=== PATIENT | male | born 1965 | race Caucasian/White ===

== ENCOUNTER → 2018-10-21 06:12 | Outpatient (CLI) | payer OTHER, SELFPAY ==
[2018-09-09 08:35] VITALS: BMI 39.6
--- NOTE | 2018-10-21 12:33 | STRESSREP_ITS ---
Stress Test Report Exercise myocardial perfusion stress test. 53-year-old man with a history of coronary artery disease. Stress protocol: Resting EKG demonstrates normal sinus rhythm with a rate of 76 bpm T wave inversion is noted in leads II, III and aVF V4 V5 V6. The patient exercised according to regular Johan protocol for total duration of 6 minutes and 30 seconds. The maximum heart rate attained was 144 bpm which was 86% of maximum predicted heart rate and maximum workload was 7.7 metabolic equivalents. At rest T wave inversions were noted as described above. At peak exercise there was approximately [address] depression noted in lead V3, V4 and V5 on the stress images. Above is suggestive but not diagnostic of ischemia. No c linical angina was noted. The resting blood pressure was 142/96 mmHg and the peak blood pressure was 202/88 mmHg with a rate pressure product of 27,000. Myocardial perfusion protocol. 14.8 mCi of technetium 99m sestamibi was injected at rest. The patient exercised for 6-1/2 minutes and at peak exercise 44.7 mCi of technetium 99m sestamibi was injected at peak exercise. Stress and rest images were reconstructed and compared in the short axis vertical and horizontal long axis. Gated images were also obtained Perfusion SPECT SPECT analysis: Review of the images demonstrate normal uptake of tracer noted in all areas of the myocardium. The resting images similar demonstrate normal uptake of tracer noted in all areas of myocardium. There is a hint of mild reduction noted in the mid anterior wall. However this is not definitive. Gated SPECT analysis: The gated ejection fraction is noted to be 62%. Conclusion: Exercise myocardial perfusion stress test with EKG changes suggestive of ischemia at a moderate workload. No obvious nuclear imaging of ischemia noted. Moderate functional aerobic impairment. Preserved ejection fraction.
--- NOTE | 2018-10-21 12:45 | STRESSREP ---
Stress Test Report Addendum to the stress report. Patient was noted to have premature ventricular complexes and multiple episodes of ventricular couplet activity during exercise and during rest. No sustained runs of ventricular tachyarrhythmia were noted.
== END ==
PROVIDERS: Family Provider Family Medicine; PCP Family Medicine; Referring Provider Internal Medicine Cardiovascular Disease; Visit Provider Internal Medicine Cardiovascular Disease
DX: E78.5 Hyperlipidemia, unspecified (principal); I25.10 Atherosclerotic heart disease of native coronary artery without angina pectoris; R07.9 Chest pain, unspecified; Z95.1 Presence of aortocoronary bypass graft
CPT/HCPCS: 78452; 93017; A9500; A4216

== ENCOUNTER 2018-10-26 07:10 | Day surgery (SDC) | payer OTHER, SELFPAY ==
[2018-09-09 08:35] VITALS: BMI 39.6
--- NOTE | 2018-10-23 06:49 | RAD_ITS ---
STUDY: X-RAY CHEST REASON FOR EXAM: Male, 53 years old. Shortness of breath/dyspnea. TECHNIQUE: PA and lateral views of the chest. COMPARISON: None. FINDINGS: Hyperinflation. Scattered calcified granulomas. There is no demonstrated pleural abnormality. Sternal cerclage wires and vascular clips are present from a prior sternotomy and coronary artery bypass graft procedure (CABG). Normal mediastinum and rosy. Normal visualized pulmonary arteries. Normal visualized aortic arch and descending thoracic aorta. There are diffuse degenerative changes of the visualized thoracic spine. Normal visualized ribs, clavicles, and shoulders. There is no demonstrated abnormality of the visualized soft tissue structures of the upper abdomen. RAD/Chest PA and Lateral IMPRESSION: Hyperinflation. The lungs are clear. Electronically Signed: Brandon Cabrera, at 12:24 EDT , Service support ,
[2018-10-23 07:07] LABS: Absolute Lymphocyte Count 1.65 X10^3/ul (0.83-4.51); Absolute Neutrophil Count 3.2 X10^3/uL (2.0-7.7); Basophil# 0.06 X10^3/uL; Eosinophils% 3.3 % (0-5); Hematocrit 45.7 % (40-54); Hemoglobin 15.2 g/dl (13.0-16.5); Lymphocyte # 1.65 X10^3/ul (4.0); Lymphocyte % 26.9 % (19-41); Mean Corp Hgb Conc 33.3 g/gl (32-36); Mean Corpuscular Volume 93.1 fL (80-94); Mean Platelet Vol. 11.2 fl (6.2-12.0); Monocyte# 1.03 X10^3/uL; Monocyte% 16.8 % (0-10); Neutrophil # 3.19 X10^3/uL (2.7-7.7); Neutrophil % 51.8 % (47-70); Platelet Count 166 K/mm3 (150-450); RBC Distribution Width CV 13.1 % (11.6-14.6); RBC Distribution Width SD 44.4 fl (35.1-43.9); Red Blood Count 4.91 M/mm3 (4.6-6.2); White Blood Count 6.1 K/mm3 (4.4-11.0)
[2018-10-23 07:15] LABS: POSITIVE COUNT NO; POSITIVE DIFFERENTIAL NO; POSITIVE MORPHOLOGY NO
[2018-10-23 07:47] LABS: Anion Gap 5 (5-15); BUN 15 mg/dL (7-18); BUN/Creat Ratio 14.9 RATIO (10-20); Chloride 106 mmol/L (98-107); Creatinine, Serum 1.01 mg/dL (0.70-1.30); EST Glomerular Filtration Rate 82 mL/min (>60); Est Glom Filt Rate - Afr Amer 99 mL/min (>60); Glucose 141 mg/dL (74-106); Potassium 3.9 mmol/L (3.5-5.1); Sodium Level 139 mmol/L (136-145)
[2018-10-23 07:49] LABS: AST(SGOT) 33 U/L (15-37); Alanine Aminotransfer ALT/SGPT 30 U/L (16-61); Albumin, Serum 3.9 g/dL (3.2-5.0); Alkaline Phosphatase 75 U/L (45-117); Bilirubin, Direct 0.15 mg/dL (0.00-0.30); Cholesterol 139 mg/dL (200); Globulin 3.4 g/dL (2.2-4.2); High Density Lipoprotein 41 mg/dL; Protein, Total 7.3 g/dL (6.4-8.2); Triglycerides 105 mg/dL; Very Low Density Lipoprotein 21 mg/dL (5-40)
[2018-10-26] VITALS (31 sets, daily range): BP systolic 117–178; BP diastolic 50–101; PULSE 54–72; RESP 15–26; TEMP 36.6–36.9; O2SAT 91–98; BMI 38.4; BMI 38.9
--- NOTE | 2018-10-26 07:26 | PCM.HP.BLA ---
History and Physical Date of Admission: 10/26/18 History of Present Illness Details: BHARAT HOLLY, is a 52 M who presents to the hospital today for a cardiovascular outpatient cardiac catheterization. He has a history of premature coronary artery disease status post carotid bypass surgery in 2008 with a left internal mammary artery to the diagonal branch, saphenous vein graft to the posterior descending artery, and saphenous vein graft to posterior circumflex artery. He also has a history of hyperlipidemia. He denies chest, arm, jaw, or neck discomfort. He states prior to CABG he noted dizziness. His exercise tolerance is stable. He denies symptoms of palpitations, lightheadedness, dizziness, near syncope, or syncopal episodes. He denies edema or claudication issues. He denies orthopnea, PND, or myalgia. He states SOB on exertion, that is most noted when over doing it. This includes such activity as breaking concrete with a sledge hammer. He states his energy has been less over the last year. He underwent a stress test which was noted to be abnormal and hence presenting for this cardiac catheterization. Visit Reasons: 1 Y FU (moved from [facility]) Hospital Manager Required: No Is patient in pain?: No Allergies No Known Allergies Allergy (Unverified 09/09/18 08:32) Medications aspirin 81 mg tablet,delayed release 81 mg PO QDAY 08/29/17 [History Confirmed 09/09/18] metoprolol tartrate 50 mg tablet 50 mg PO BID #180 tab 08/17/18 [Rx Confirmed 09/09/18] simvastatin 40 mg tablet 40 mg PO QPM #90 tab 08/24/18 [Rx Confirmed 09/09/18] [facility] Medical History HLD (hyperlipidemia) (Chronic) Atherosclerotic heart disease of [place] coronary artery without angina pectoris (Chronic) HTN (hypertension) (Ruled-out) ACS (acute coronary syndrome) (Inactive) Surgical History Presence of aortocoronary bypass graft (Chronic 12/02/08) History of arthroscopy of left shoulder (Acute ~03/2017) History of left heart catheterization (LHC) (Chronic 12/01/08) History of tonsillectomy (Chronic) Family History Father CAD (coronary artery disease) Diabetes Cancer Mother Diabetes Brother brain aneurysm rupture Social History Smoking Status: Never smoker alcohol intake: current alcohol intake frequency: a few times a month ROS Const Const: Positive for fatigue; negative for weakness, body ache, fever(s) or chills ENT ENT: Negative for dizziness Cardio Chest Pain: No Palpitations: No Edema: None Muscle aches with walking: None Resp Respiratory: Positive for SOB with activity; negative for SOB at rest, SOB orthopnea\SOB lying down or paroxysmal nocturnal dyspnea GI GI: Negative nausea, vomiting blood/hematemesis, bright, red blood in stools or black,tarry stools : Negative for hematuria or frequent nighttime urination/ nocturia Musc Musc: Negative for muscle aches/ myalgia Skin Skin: Negative non-healing lesions or rash Neuro Neuro: Negative for dizziness, lightheadedness, near syncope, syncope, orthostatic symptoms or weakness Endo Endo: Positive for fatigue Allergy Allergy/Immunology: Negative for rash Cardiology Exam Const Appearance: cooperative, healthy appearing, comfortable and no acute distress Nutritional Appearance: well nourished and obese Orientation: alert, awake and oriented x3 Head Head: normal to inspection Ears: hearing grossly normal bilaterally Nose: external nose normal Face and Sinus: face symmetric Mouth: oral mucosae normal Eyes General: appearance normal, both eyes and all related structures Eyelids: eyelids normal EOM: EOM intact bilaterally Neck Neck: normal visual inspection and no JVD Carotids: normal carotid upstroke Chest Chest inspection: normal inspection of the chest, symmetric chest movement and normal respiratory effort; negative cough Auscultation: Bilateral: Clear to Auscultation Cardio Rate: regular rate Rhythm: regular rhythm Heart sounds: S1 normal and S2 normal; negative rub, gallop or murmur GI GI: normal to inspection and obese Neuro General: alert, awake, oriented x3 and CN's II-XI intact bilaterally Skin Skin: no rashes or lesions noted Extremities Pulses: Normal: Right Posterior Tibial Pulse, Left Posterior Tibial Pulse, Right Radial Pulse, Left Radial Pulse Lower Extremity Edema: None: Bilateral Psych Psychological: normal affect Assessment & Plan 1. Atherosclerosis of [place] coronary artery of [place] heart without angina pectoris I25.10 CABG x 3 SHEIKH-D2, Sequential SVG- Left PDA Posterolateral CX 12/02/2008 He underwent stress testing which demonstrated evidence of ischemia and hence he is being scheduled for this cardiac catheterization. The risk benefits and alternatives have been explained to him he understands and agrees to proceed. 2. Presence of aortocoronary bypass graft Z95.1 CABG x 3 SHEIKH-D2, Sequential SVG- Left PDA Posterolateral CX 12/02/2008 @ [facility] Plan He will proceed with current medications and we will continue to monitor. 3. Pure hypercholesterolemia E78.00 Plan Lipid panel from August 2016 showed cholesterol: 148, HDL: 43, LDL: 80, and triglycerides: 127. He will continue with current statin medication. Patient will have this drawn at his earliest convenience in a fasting state. Based on results, further recommendation will be made. Orders Orders: Lipid Profile 09/09/18 Liver Profile 09/09/18 Plan Detail Other Orders Orders: Lipid Profile 09/09/18 E78.0 Liver Profile 09/09/18 E78.0 Additional Comments Thank you for allowing us to participate in the patient's plan of care, if you have any questions please do not hesitate to call. This note was generated using a voice recognition system and there may be incorrect words, spelling, or punctuation that were not noted upon reviewing the office note prior to saving. Follow Up 12 Months ([facility])
[2018-10-26 09:55] LABS: ACT Activated Clotting Time 219 sec (74-137)
--- NOTE | 2018-10-26 10:00 | EKG12_ITS ---
Test Reason : POST PCI Blood Pressure : / mmHG Vent. Rate : 055 BPM Atrial Rate : 055 BPM P-R Int : 180 ms QRS Dur : 100 ms QT Int : 442 ms P-R-T Axes : 086 080 -75 degrees QTc Int : 422 ms Sinus bradycardia T wave abnormality, consider inferior ischemia Abnormal ECG Confirmed by ARUN ROJAS, SUSAN ([id number]), managing editor NEVILLE GONCALVES ([id number]) on 10/30/2018 1:51:16 PM Referred By: Mina Enriquez Confirmed By:DERRELL DIAS MD
--- NOTE | 2018-10-26 10:00 | EKG12_ITS ---
Test Reason : AM Blood Pressure : / mmHG Vent. Rate : 058 BPM Atrial Rate : 058 BPM P-R Int : 146 ms QRS Dur : 104 ms QT Int : 492 ms P-R-T Axes : 085 080 178 degrees QTc Int : 482 ms Sinus bradycardia with occasional Premature ventricular complexes T wave abnormality, consider inferior ischemia Prolonged QT Abnormal ECG When compared with ECG of 26-OCT-2018 10:13, MANUAL COMPARISON REQUIRED, DATA IS UNCONFIRMED Confirmed by ARUN ROJAS, SUSAN ([id number]), sound editor NEVILLE GONCALVES ([id number]) on 10/30/2018 1:49:49 PM Referred By: Mina Enriquez Confirmed By:DERRELL DIAS MD
--- NOTE | 2018-10-26 11:33 | CRPHASE1 ---
Patient Communication PHII Cardiac Rehab Discussed with Patient:: Yes Guide to Cardiac Rehab Given to Patient:: Yes Cardiac Rehab Facility Choice List Given to Patient:: Yes - [facility] Choice Program [facility] CR PHII:: Communication Given to CR, Refer to [facility] Clinical Neuropsychologist:: Arutro Bloom PCP:: Chi Antoine Phase II Cardiac Rehab:: Yes Phase I Charge:: Level I - Education Risk Factors/Lifestyle Smoking Status: Never smoker Hx Hypertension: Yes Hx Obesity: Yes Height: 5 ft 9 in Weight:: 264 lb BMI: 38.9 Family History: Family History (Last Reviewed 09/09/18 @ 08:32 by Quynh Church) Father CAD (coronary artery disease) Diabetes Cancer Mother Diabetes Brother brain aneurysm rupture Family History: Cancer, Diabetes, Heart Disease, Stroke Past Cardiac Illness: Coronary Artery Bypass Graft Laboratory Values: Cardiac Rehab Phase I Labs Triglycerides 105 mg/dL (-199) 10/23/18 06:47 Cholesterol 139 mg/dL (200) 10/23/18 06:47 77 mg/dL (0-130) 10/23/18 06:47 41 mg/dL (40-) 10/23/18 06:47 Phase I Education Given On:: [place], Nutrition, Antiplatelet medication, CHF Issues Affecting Care:: None Knowledge of Condition:: Yes Learning Preferences: Verbal, Written, Audio/Visual, Demonstration Hospital Course Presenting Symptoms:: chest pain, SOB Medical/Surgical History CAD:: Yes Hypertension:: Yes Dyslipidemia:: Yes CABG: Yes Discharge/Home/Social Eval Marital Status: Cardiac Rehabilitation Info Cardiac Rehabilitation Program Information: Cardiac Rehabilitation is important for patients like you who are recovering from a heart problem. Cardiac rehabilitation programs are recognized as integral to the continued care of the patient with coronary heart disease. The cardiac rehabilitation program is designed to optimize a patient's physical, psychological, and social functioning. Health care transition manager work in cardiac rehabilitation programs and assist you with getting the treatments you need to get stronger and healthier - like exercise, healthy eating habits, and medications. Cardiac rehabilitation has been show to help people with heart problems live longer and have better life enjoyment than people who do not go to cardiac rehabilitation. Please contact the Cardiac Rehabilitation Program at [facility] at in two weeks if you have not heard from them.
--- NOTE | 2018-10-26 11:39 | CRPH1.INSTRU ---
General Education CAD and cardiac anatomy and function:: Patient communicates acknowledgment, Needs reinforcement Explanation of diagnoses and procedures:: Patient communicates acknowledgment, Needs reinforcement Sign/Symptoms of MA:: Patient communicates acknowledgment, Needs reinforcement Antiplatelet therapy: Patient communicates acknowledgment, Needs reinforcement Proper use of NTG-SL: Patient communicates acknowledgment, Needs reinforcement Emergency procedures and activation of EMS: Patient communicates acknowledgment, Needs reinforcement Compliance of all prescribed medications: Patient communicates acknowledgment, Needs reinforcement Smoking Patient Nicotine/Smoking Risk Factors Are:: Non-smoker Nicotine/Smoking Response Code:: Not instructed Dyslipidemia Patient Dyslipidemia Risk Factors Are:: Total Cholesterol, Triglycerides, HDL, LDL Recommendations Include:: Lipid profile provided, Reviewed NCEP/ATP guidelines, Therapeutic Lifestyle Change dietary guidelines Dyslipidemia Response Code:: Patient communicates acknowledgment, Needs reinforcement Overweight/Obesity Patient Overweight/Obesity Risk Factors Are:: Overweight = 26-29 Recommendations Include:: Weight loss of 5-10%, Reduced calorie diet, Exercise 5-7 times/week Overweight/Obesity:: Patient communicates acknowledgment, Needs reinforcement Hypertension Recommendations Include:: Maintain BP <130/85, DASH dietary guidelines, Decrease/maintain normal body weight, Moderation of ETOH Hypertension:: Patient communicates acknowledgment, Needs reinforcement Heart Disease Patient Heart Disease Risk Factors Are:: Family history of heart disease < 65 years old, Previous cardiac event Recommendations Include:: Educated family members of their risk, Educated family members of importance of prevention of heart disease Heart Disease Response Code:: Patient communicates acknowledgment, Family communicates acknowledgment, Needs reinforcement Diabetes Patient Diabetes Risk Factors Are:: No documented hx of diabetes Recommendations Include:: Decrease/maintain body weight Diabetes:: Needs reinforcement Metabolic Syndrome Patient Metabolic Syndrome Risk Factors Are [3 of 5]:: Waist circumference > 35 [female] or 40 [male], Hypertension Recommendations Include:: Reinforce compliance to risk factor modifications, Encouraged follow-up with Primary Care Physician Metabolic Syndrome Response Code:: Patient communicates acknowledgment, Needs reinforcement Sedentary Patient Sedentary Risk Factors Are:: Lack of regular exercise Recommendations Include:: Aerobic exercise 5-7 times/week for 20-30 minutes continuously, Benefits of regular exercise, Discussed home walking program, Monitored Outpatient Cardiac Rehab Sedentary Response Code:: Patient communicates acknowledgment, Needs reinforcement Stress Patient Stress Risk Factors Are:: Patient denies stress as a risk factor Stress Response Code:: Patient communicates acknowledgment, Needs reinforcement
[2018-10-26 11:56] LABS: ACT Activated Clotting Time 169 sec (74-137)
[2018-10-26] MEDS: Morphine 2 MG/ML Syringe IV (12:12)
--- NOTE | 2018-10-26 16:08 | CL.I_ITS ---
Patient Name: BHARAT HOLLY Study Date: 10/26/2018 Performing: Bee Bloom MD Ht: 69 inches 175 cm : 1965 Wt: 264.9 lbs 120 kg Age: 53 Gender: male BSA: 2.32 PROCEDURE(S) PERFORMED GL02-FPM W OR WO PTCA, SINGLE CORONARY ARTERY [id number] AND/OR PTCA, SINGLE GRAFT CLINICAL PROFILE AND CO-MORBIDITIES Indications: Suspected CAD Heart Failure: None Stress/Imaging Date: 10/21/2018 CAD Presentations: Unstable angina. CONCLUSIONS Successful PCI with Drug eluting stent and PTCA to the OM2 and SVG to OM2 RECOMMENDATIONS ASA Indefinitley Plavix for at least 12 months Follow up with primary machine trimmer DESCRIPTION OF PROCEDURE The patient arrived to the procedure lab. The risks and benefits of the procedure as well as a full d escription of our services here and current unavailability of surgical backup were fully explained to the patient and/or their significant other prior to the catheterization. The Timeout was completed, verifying the correct patient and procedure. The patient's procedural site was prepped and draped in the usual fashion. Local anesthetic was given subcutaneously to right groin region with Lidocaine 2% Using a modified Seldinger technique,arterial access was obtained via the right femoral artery, a 5Fr sheath was inserted. Left Coronary Artery selective angiography was performed in multiple views usin g a 5 Fr. JL4 catheter. Right Coronary Artery selective angiography was then performed in multiple vi ews using a 5 Fr. 3DRC (Alfredo) catheter. Saphenous Vein graft to the Circumflex- sequential graft to PDA selective angiography was performed in multiple views using a 5 Fr. 3DRC (Alfredo) catheter. Left internal mammary artery graft to the LAD selective angiography was performed in multip le views using a 5 Fr. 3DRC (Alfredo) catheter. Left Ventriculography was performed in QUINN projectio n using a 5 Fr. Pigtail catheter. LV to AO pullback pressures were then recorded.The images were revi ewed and options discussed. A decision was then made to proceed with an Intervention, IVUS or other a djunct procedure. Arterial sheath was exchanged for a 6 Fr Sheath. JR 4 Guide catheter was inserted and engaged int o the SVG to the OM 2. BMW Guide wire was advanced to the 2nd OM. Emerge 2.00x12 Balloon catheter was inserted. PTCA balloon inflated at 10 atms for 13 secs. Angiogram performed post balloon dilatation. Synergy 2.50x16 Drug Eluting stent was inserted. Angiogram performed post stent deployment. Synergy 4.00x12 Drug Eluting stent was inserted. Angiogram performed post stent deployment. The arterial sh eath was sutured in place and capped INTERVENTION INFORMATION LESION SITE: 2nd OM (Distal) Vein > to 2nd OM Segment Number: 21-Second obtuse marginal branch segmen t - 2nd OM , Lesion Location: Not in Graft > [place] vessel (distal) Lesion Complexity: High/C, chronic total occlusion: No, lesion at bifurcation: No, thrombus present: No, lesion length: 12 mm, culprit lesion: No, Previously treated lesion: No Pre Stenosis: 80 % Pre intervention HOLA flow: 3 PROCEDURE: Drug Eluting Stent with pre dilatation. Post Stenosis: 0 % Post intervention HOLA flow: 3 Lesion Devices: [place] .014 BMW Tyler Straight 190cm Medtronic 6 Fr JR4.0 100cm Guide Catheter EZDOCTOR Synergy MR KAREN 2.50x16 LESION SITE: Vein > to 2nd OM Segment Number: 21-Second obtuse marginal branch segment - 2nd OM , [place] Location: Body Lesion Complexity: High/C, chronic total occlusion: No, lesion at bifurcation: No, thrombus present: No, lesion length: 12 mm, culprit lesion: Yes, Previously treated lesion: No, culprit lesion: Yes, Pr eviously treated lesion: No, In-stent restenosis: No Pre Stenosis: 80 % Pre intervention HOLA flow: 3 PROCEDURE: Drug Eluting Stent Post Stenosis: 0 % Post intervention HOLA flow: 3 Lesion Devices: [place] .014 BMW Tyler Straight 190cm Medtronic 6 Fr JR4.0 100cm Guide Catheter [employer] MR KAREN 4.00x12 COMPLICATIONS No Complications PROCEDURE MEDICATIONS Versed 1 mg IV Versed 0.5 mg IV Versed 0.5 mg IV Versed 1 mg IV Oxygen: 3 L/min via nasal cannula Heparin 9000 unit(s) IV 10/26/2018 09:23:27 SUMMARY OF HEMODYNAMIC DATA Time AIR REST ECG 07:31:01 AO 137/84 (107) SA 08:40:28 LV 126/18, 33 08:56:24 LV 133/15, 33 08:56:31 LV 144/5, 24 08:57:24 LVp 150/3, 23 08:57:37 AOp 160/86 (114) 08:57:42 Signed By Bee Bloom MD On 10/26/2018 16:07:39 Bee Bloom MD
[2018-10-26] MEDS: Metoprolol Tartrate 50 MG Tablet PO (21:44)
[2018-10-26] MEDS: Atorvastatin Calcium 20 MG Tablet PO (21:44)
[2018-10-27] VITALS (13 sets, daily range): BP systolic 106–142; BP diastolic 44–85; PULSE 52–73; RESP 14–22; TEMP 36.4–36.9; O2SAT 95–100
[2018-10-27] MEDS: 0.9% NaCl Peripheral Flush Adult/Peds IV (04:07)
[2018-10-27 04:15] LABS: Hematocrit 41.3 % (40-54); Hemoglobin 14.1 g/dl (13.0-16.5); Mean Corp Hgb Conc 34.1 g/gl (32-36); Mean Corpuscular Hgb 31.4 pg (27.0-32.0); Mean Platelet Vol. 11.5 fl (6.2-12.0); Platelet Count 137 K/mm3 (150-450); RBC Distribution Width CV 13.1 % (11.6-14.6); RBC Distribution Width SD 44.2 fl (35.1-43.9); Red Blood Count 4.49 M/mm3 (4.6-6.2); Scan Indicated on CBC? Y/N NO; White Blood Count 7.4 K/mm3 (4.4-11.0)
[2018-10-27 04:39] LABS: ALB/GLOB Ratio 1.2 RATIO (0.9-2.4); AST(SGOT) 31 U/L (15-37); Alanine Aminotransfer ALT/SGPT 24 U/L (16-61); Albumin, Serum 3.5 g/dL (3.2-5.0); Alkaline Phosphatase 73 U/L (45-117); Anion Gap 7 (5-15); BUN 12 mg/dL (7-18); BUN/Creat Ratio 14.2 RATIO (10-20); Calcium,Total 8.7 mg/dL (8.5-10.1); Chloride 107 mmol/L (98-107); Creatinine, Serum 0.85 mg/dL (0.70-1.30); EST Glomerular Filtration Rate 101 mL/min (>60); Est Glom Filt Rate - Afr Amer 122 mL/min (>60); Glucose 132 mg/dL (74-106); Potassium 4.2 mmol/L (3.5-5.1); Protein, Total 6.5 g/dL (6.4-8.2); Sodium Level 142 mmol/L (136-145)
--- NOTE | 2018-10-27 07:03 | PN.CARD_ITS ---
Subjectve: Patient seen and evaluated. Had uneventful night. No chest pain or shortness of breath. No bleeding Objective: Vital Signs Temp Pulse Resp BP Pulse Ox 97.6 F L 58 L 16 116/44 L 95 10/27/18 04:00 10/27/18 07:00 10/27/18 07:00 10/27/18 07:00 10/27/18 07:00 Oxygen Flow Rate (L/min) 2 Oxygen Delivery Method Nasal Cannula Weight: 265 lb 3.457 oz Body Mass Index (BMI) 38.4 Intake and Output for Last 24 Hours 10/25/18 10/26/18 10/27/18 23:59 23:59 23:59 Intake Total 1350 / 1350 240 / 240 Output Total 550 / 550 Balance 800 / 800 240 / 240 General: Awake, Alert, Oriented x 3 HEENT: PERRL, EOMI, Sclera Non Icteric Neck: Supple, Good ROM, No Lymph Node Enlargement Lungs: Clear to auscultation Cardiovascular: Regular Rhythm, Normal S1, Normal S2, No Murmurs, No Rubs, No Gallops Vascular: No Carotid Bruits, Normal Femoral Pulses, Normal Radial Pulses, Normal Dorsalis Pedal Pulse, Normal Posterior Tibial Pulses Abdomen: Bowel Sounds Present, Soft, Non Tender, No HSM, No Organomegaly Extremities: No Cyanosis, No Clubbing, No edema Musculoskeletal: No Erythema Skin: No Rashes Lymphatic: No Lymph Node Enlargement Neurological: No Focal Motor or Sensory Deficit Psych/Mental Status: Appropriate 10/27/18 04:00: WBC 7.4, RBC 4.49 L, Hgb 14.1, Hct 41.3, MCV 92.0, MCH 31.4, MCHC 34.1, RDW 13.1, RDW Differential 44.2 H, Plt Count 137 L, MPV 11.5 10/27/18 04:00: Sodium 142, Potassium 4.2, Chloride 107, Carbon Dioxide 28.0, Anion Gap 7, BUN 12, Creatinine 0.85, Est GFR (MDRD) Af Amer 122, Est GFR (MDRD) Non-Af 101, BUN/Creatinine Ratio 14.2, Glucose 132 H, Calcium 8.7, Total Bilirub in 0.70 Rhythm: EKG: Normal sinus rhythm with occasional PVCs nonspecific EKG changes ECHO: Stress Test: Cardiac Cath: PCI: CT Surgery: Holter monitor: EPS: PPM: CXR: Chest CT Scan: Medical Necessity - Tobacco Use Smoking Status: Never smoker Assessment/Plan 1. Coronary artery disease Cardiac catheterization had demonstrated patent left internal mammary artery to the left anterior descending artery, saphenous vein graft to the second obtuse marginal branch as well as the posterior descending artery with high-grade stenosis. He underwent angioplasty and stenting of these vessels without incident. He has a nondominant right coronary artery. His EKG today is u nremarkable and creatinine and hemoglobin are normal. He will be discharged for outpatient follow-up and cardiac rehabilitation.
--- NOTE | 2018-10-27 07:05 | DCINST_ITS ---
Discharge Diet: Low fat/ Low Cholesterol Lifting Restrictions: 10 pounds and also avoid any pushing or pulling for 3 days after your test. Additional Activity Instructions:: You must have someone drive you home. Do not drive until instructed by your doctor. You must have someone stay with you all night after your test. Rest in bed or on the couch until the next morning. Limit the number of times you go up and down stairs the day of your test. Apply pressure to the puncture site if you sneeze or cough. Call your doctor if your incision/area has: Increased Pain/ Swelling, Increased Redness, Foul Smelling Discharge, Swelling at the incision site Call your doctor if you observe: Fever of 101 or Higher Additional Dressing/Incision Instructions:: Keep the dressing (bandage) on until the next morning. You may then shower, but do not take a tub bath for 5 days after your test. It is normal to have some tenderness and discomfort at the puncture site. Sometimes bruising also occurs. However, if pain, numbness, or coldness occurs below the puncture site (in your leg, toes, arms or fingers) call your doctor at once. You may have a small, marble sized knot at the puncture site. This is normal. Do not rub it. It will go away in 4-6 weeks. Bleeding can occur from the area where the puncture was done. Blood may spurt or drip from the site. If blood spurts, apply pressure right away to stop bleeding and call 911. Although rare, bleeding into the tissue (hematoma) can also occur. If this happens, a large, firm area goose egg under the skin will appear. If any of these occur, lie down as flat as you can and have someone apply firm pressure to the cath site with a gauze pad or a clean washcloth for 10-15 minutes. Call 911 or go to the Emergency Department. Allergies/Adverse Reactions: Allergies No Known Allergies Allergy (Unverified 09/09/18 08:32) Medications to take at Discharge aspirin 81 mg tablet,delayed release 81 mg PO QDAY 08/29/17 metoprolol tartrate 50 mg tablet 50 mg PO BID #180 tab 08/17/18 simvastatin 40 mg tablet 40 mg PO QPM #90 tab 08/24/18 clopidogrel 75 mg tablet 75 mg PO DAILY #30 tab 07/12/19 Orders to be completed after discharge: Phase II, Outpatient Cardiac Rehab Location: None Selected Primary Care Physician: Chi Antoine MD [Primary Care Provider] - Test Results: Test results from this visit will be discussed in further detail at your follow- up appointment, if applicable. When: [facility] Proposed Discharge Date: 10/27/18 Cardiac Rehabilitation Info Cardiac Rehabilitation Program Information: Cardiac Rehabilitation is important for patients like you who are recovering from a heart problem. Cardiac rehabilitation programs are recognized as integral to the continued care of the patient with coronary heart disease. The cardiac rehabilitation program is designed to optimize a patient's physical, psychological, and social functioning. Health animal care worker work in cardiac rehabilitation programs and assist you with getting the treatments you need to get stronger and healthier - like exercise, healthy eating habits, and medications. Cardiac rehabilitation has been show to help people with heart problems live longer and have better life enjoyment than people who do not go to cardiac rehabilitation. Please contact the Cardiac Rehabilitation Program at [facility] at in two weeks if you have not heard from them.
[2018-10-27] MEDS: Aspirin E.C. 81 MG Tablet PO (07:52)
[2018-10-27] MEDS: Metoprolol Tartrate 50 MG Tablet PO (07:52)
[2018-10-27] MEDS: Clopidogrel Bisulfate 75 MG Tablet PO (07:52)
--- NOTE | 2018-11-03 13:39 | CL.D_ITS ---
Patient Name: BHARAT HOLLY Study Date: 10/26/2018 Performing: Mina Enriquez MD Ht: 68.9 inches 175 cm : 1965 Wt: 264.55 lbs 120 kg Age: 53 Gender: male BSA: 2.32 PROCEDURE(S) PERFORMED [id number]/LV/CABG [id number] W OR WO PTCA, SINGLE CORONARY ARTERY [id number] AND/OR PTCA, SINGLE GRAFT CLINICAL PROFILE AND INDICATIONS Indications: Suspected CAD Heart Failure: None Stress/Imaging Date: 10/21/2018 CAD Presentations: Unstable angina. CONCLUSIONS Severe grafty vessel disease involving LCX and PDA RECOMMENDATIONS Referred for immediate PCI DESCRIPTION OF PROCEDURE The patient arrived to the procedure lab. The risks and benefits of the procedure as well as a full d escription of our services here and current unavailability of surgical backup were fully explained to the patient and/or their significant other prior to the catheterization. The Timeout was completed, verifying the correct patient and procedure. The patient's procedural site was prepped and draped in the usual fashion. Local anesthetic was given subcutaneously to right groin region with Lidocaine 2%. Using a modified Seldinger technique, arterial access was obtained via the right femoral artery, a 5 Fr sheath was inserted. Left Coronary Artery selective angiography was performed in multiple views u sing a 5 Fr. JL4 catheter. Right Coronary Artery selective angiography was then performed in multiple views using a 5 Fr. 3DRC (Alfredo) catheter. Saphenous Vein graft to the Circumflex- sequential gra ft to PDA selective angiography was performed in multiple views using a 5 Fr. 3DRC (Alfredo) catheter. Left internal mammary artery graft to the LAD selective angiography was performe d in multiple views using a 5 Fr. 3DRC (Alfredo) catheter. Left Ventriculography was performed in RA O projection using a 5 Fr. Pigtail catheter. LV to AO pullback pressures were then recorded.The arter ial sheath was sutured in place and capped CORONARY ANGIOGRAPHY DOMINANCE: Left Dominant LEFT HEART ASSESSMENT Left Ventricular Ejection Fraction: by LV Gram 65 % Normal LV wall motion Normal Left Ventricular systolic function LEFT MAIN: Angiographically normal LEFT ANTERIOR DESCENDING ARTERY: PROX LAD: is occluded CIRCUMFLEX ARTERY: OM 1: Proximal - 90 % Stenosis RIGHT CORONARY ARTERY: No significant disease noted GRAFTS: SHEIKH graft to the Mid LAD is patent Sequential graft to the Lcx and PDA with anastomotic 75 % stenosis and distal anastomotic 80% in PDA COMPLICATIONS No Complications PROCEDURE MEDICATIONS Versed 1 mg IV Versed 0.5 mg IV Versed 0.5 mg IV Versed 1 mg IV Oxygen: 3 L/min via nasal cannula Heparin 9000 unit(s) IV 10/26/2018 09:23:27 SUMMARY OF HEMODYNAMIC DATA Time AIR REST ECG 07:31:01 AO 137/84 (107) 08:40:28 LV 126/18, 33 08:56:24 LV 133/15, 33 08:56:31 LV 144/5, 24 08:57:24 LVp 150/3, 23 08:57:37 AOp 160/86 (114) 08:57:42 Signed By Mina Enriquez MD On 11/03/2018 13:38:08 Mnia Enriquez MD
== END 2018-10-27 10:50 | disposition home or self-care (01) ==
LOC: CLSP 07:10 → ICU 09:54
PROVIDERS: Nurse Practitioner Family; Specialist; Family Provider Family Medicine; PCP Family Medicine; Referring Provider Internal Medicine Cardiovascular Disease; Visit Provider Internal Medicine Cardiovascular Disease
DX: I25.110 Atherosclerotic heart disease of native coronary artery with unstable angina pectoris (principal); Z95.1 Presence of aortocoronary bypass graft; E78.5 Hyperlipidemia, unspecified; I10 Essential (primary) hypertension; Z79.899 Other long term (current) drug therapy; Z79.82 Long term (current) use of aspirin
CPT/HCPCS: 36415; 71046; 80048; 80053; 80061; 80076; 85025; 85027; 85347; 92928; 92937; 93005; 93459; 99152; 99153; J7040; Q9967; A4216; C1725; C1769; C1874; C1887; C9600; C9604

== ENCOUNTER → 2019-03-24 09:28 | Outpatient (CLI) | payer OTHER, SELFPAY ==
[2018-10-26 11:39] VITALS: BMI 38.9
[2019-03-24 08:06] VITALS: BMI 40.7
[2019-03-24 10:42] LABS: AST(SGOT) 32 U/L (15-37); Alanine Aminotransfer ALT/SGPT 29 U/L (16-61); Alkaline Phosphatase 79 U/L (45-117); Bilirubin, Direct 0.24 mg/dL (0.00-0.30); Cholesterol 140 mg/dL (200); Globulin 3.3 g/dL (2.2-4.2); High Density Lipoprotein 40 mg/dL; Protein, Total 7.3 g/dL (6.4-8.2); Triglycerides 83 mg/dL; Very Low Density Lipoprotein 17 mg/dL (5-40)
== END ==
PROVIDERS: Family Provider Family Medicine; PCP Family Medicine; Referring Provider Internal Medicine Cardiovascular Disease; Visit Provider Internal Medicine Cardiovascular Disease
DX: E78.5 Hyperlipidemia, unspecified (principal)
CPT/HCPCS: 36415; 80061; 80076

== ENCOUNTER → 2019-09-24 13:51 | Outpatient (CLI) | payer OTHER, SELFPAY ==
[2018-10-26 11:39] VITALS: BMI 38.9
[2019-09-24 13:04] VITALS: BMI 40.6
--- NOTE | 2019-09-24 14:07 | RAD_ITS ---
STUDY: X-RAY CHEST REASON FOR EXAM: Male, 53 years old. SOB HX OF OPEN HEART IN 2008. TECHNIQUE: Frontal and lateral views COMPARISON: October 23, 2018 FINDINGS: Stable sternotomy wires. The lungs are clear and expanded. There is no demonstrated pleural abnormality. Normal size heart. Normal mediastinum and rosy. Normal visualized pulmonary arteries. Normal visualized aortic arch and descending thoracic aorta. Degenerative changes of the thoracic spine. Stable mild wedge compression of a lower thoracic segment. Degenerative changes at the shoulders. There is no demonstrated abnormality of the visualized soft tissue structures of the upper abdomen. RAD/Chest PA and Lateral IMPRESSION: No acute pulmonary pathology of the chest. Electronically Signed: Kian Tinajero DO at 8:41 EDT Tel [phone], Service support ,
[2019-09-24 14:14] LABS: Absolute Neutrophil Count 3.2 X10^3/uL (2.0-7.7); Basophil# 0.04 X10^3/uL; Basophil% 0.7 % (0-1); Eosinophil# 0.24 X10^3/uL; Hematocrit 44.6 % (40-54); Hemoglobin 14.6 g/dL (13.0-16.5); Lymphocyte % 28.5 % (19-41); Mean Corp Hgb Conc 32.7 g/dL (32-36); Mean Corpuscular Hgb 31.4 pg (27.0-32.0); Mean Corpuscular Volume 95.9 fL (80-94); Mean Platelet Vol. 11.4 fl (6.2-12.0); Monocyte# 0.74 X10^3/uL; Monocyte% 12.4 % (0-10); NRBC Flagged by Analyzer 0 % (0-5); Neutrophil # 3.22 X10^3/uL (2.7-7.7); Neutrophil % 54.1 % (47-70); Platelet Count 123 K/mm3 (150-450); RBC Distribution Width CV 12.9 % (11.6-14.6); RBC Distribution Width SD 45.5 fl (35.1-43.9); Red Blood Count 4.65 M/mm3 (4.6-6.2)
[2019-09-24 14:33] LABS: Anion Gap 4 (5-15); BUN 18 mg/dL (7-18); BUN/Creat Ratio 18.6 RATIO (10-20); Calcium,Total 9.5 mg/dL (8.5-10.1); Chloride 107 mmol/L (98-107); Creatinine, Serum 0.97 mg/dL (0.70-1.30); EST Glomerular Filtration Rate 86 mL/min (>60); Est Glom Filt Rate - Afr Amer 104 mL/min (>60); Glucose 91 mg/dL (74-106); Potassium 4.2 mmol/L (3.5-5.1); Sodium Level 142 mmol/L (136-145)
[2019-09-24 14:38] LABS: BNP,B-Type NATRIURETIC PEPTIDE 175.1 pg/mL (0-100)
== END ==
PROVIDERS: PCP Family Medicine; Referring Provider Nurse Practitioner Family; Visit Provider Nurse Practitioner Family
DX: I25.10 Atherosclerotic heart disease of native coronary artery without angina pectoris (principal); R07.9 Chest pain, unspecified; R06.00 Dyspnea, unspecified; Z95.5 Presence of coronary angioplasty implant and graft
CPT/HCPCS: 36415; 71046; 80048; 83880; 85025

== ENCOUNTER → 2019-09-29 06:24 | Outpatient (CLI) | payer OTHER, SELFPAY ==
[2018-10-26 11:39] VITALS: BMI 38.9
[2019-09-24 13:04] VITALS: BMI 40.6
--- NOTE | 2019-09-29 13:17 | STRESSREP ---
Stress Test Report 53-year-old male with a history of chest pain. Stress protocol: Resting EKG demonstrates normal sinus rhythm with a rate of 63 bpm with T wave inversions noted in the inferolateral leads. Resting blood pressure is 148/76 mmHg. The patient exercised according to the regular Johan protocol for a total duration of 7 minutes. Patient completed 1 minute into stage III of the Johna protocol. The maximum heart rate was 148 bpm which was 88% of maximum predicted heart rate. The maximum workload was 8.5 metabolic equivalents. At rest the T wave inversions noted were present. At peak exercise T wave inversions were noted which appeared to be worsened with exercise. There was 1.[address] depression noted in leads II, III and aVF. Premature ventricular complexes were noted and occasional triplets were noted. The resting blood pressure was 148/76 with a peak blood pressure 190/80 mmHg. Myocardial perfusion protocol. 15.0 mCi of technetium 99m sestamibi was injected at rest. The patient exercised according to regular Johan protocol for 7 minutes. At peak exercise 45.0 mCi of technetium 99m sestamibi was injected stress images were obtained stress and rest images were reconstructed and compared in the short axis vertical long horizontal long axis. Gated images were also obtained per Perfusion SPECT analysis: Review of the stress images demonstrate normal uptake of tracer noted in all areas of the myocardium. The resting images similar demonstrate normal uptake of tracer noted in all areas of the myocardium. No obvious areas of reversibility are noted suggest ischemia no previous infarct is noted. Gated SPECT analysis: The gated ejection fraction is noted to be 63%. Conclusion: Normal exercise myocardial perfusion stress test at a moderate workload. EKG changes suggestive but not diagnostic of ischemia. No clinical angina noted..
== END ==
PROVIDERS: PCP Family Medicine; Referring Provider Nurse Practitioner Family; Visit Provider Nurse Practitioner Family
DX: R07.9 Chest pain, unspecified (principal); R06.00 Dyspnea, unspecified; I25.10 Atherosclerotic heart disease of native coronary artery without angina pectoris; Z95.5 Presence of coronary angioplasty implant and graft
CPT/HCPCS: 78452; 93017; A9500; A4216

== ENCOUNTER → 2019-11-03 16:42 | Outpatient (CLI) | payer OTHER, SELFPAY ==
[2018-10-26 11:39] VITALS: BMI 38.9
[2019-09-24 13:04] VITALS: BMI 40.6
--- NOTE | 2019-11-03 16:47 | RAD_ITS ---
STUDY: X-RAY - LUMBAR SPINE REASON FOR EXAM: Male, 54 years old. BACK PAIN TECHNIQUE: 3 view(s) of the lumbar spine were obtained. COMPARISON: None FINDINGS: Exaggerated lumbar lordosis. There is no substantial scoliosis. There is a normal alignment of the vertebrae. No evidence for acute fracture or subluxation. Multilevel disc space narrowing and endplate spurring. There appears to be spinal stenosis at L4-5 and L5-S1 exaggerated by facet arthropathy and short pedicles The soft tissue structures are unremarkable. RAD/Lumbar Spine 2 or 3 Views IMPRESSION: Advanced spondylosis for age and findings suggestive of spinal stenosis which may be better assessed with CT or MRI Electronically Signed: Sriram Price MD at 18:59 EDT , Service support ,
--- NOTE | 2019-11-03 17:05 | RAD_ITS ---
STUDY: X-RAY - THORACIC SPINE REASON FOR EXAM: Male, 54 years old. BACK PAIN TECHNIQUE: 3 view(s) of the thoracic spine were obtained. COMPARISON: None. FINDINGS: Normal kyphosis of the thoracic spine. There is no substantial scoliosis. There is an old compression fracture of T11. The disc space heights are well-maintained however there is diffuse ossification of the anterior longitudinal ligament consistent with DISH The soft tissue structures are unremarkable. RAD/Thoracic Spine 3 Views IMPRESSION: Old compression fracture T11 No acute fracture or subluxation. Electronically Signed: Sriram Price MD at 19:47 EDT , Service support ,
== END ==
PROVIDERS: PCP Family Medicine; Referring Provider Anesthesiology Pain Medicine; Visit Provider Anesthesiology Pain Medicine
DX: M54.9 Dorsalgia, unspecified (principal)
CPT/HCPCS: 72072; 72100

== ENCOUNTER → 2019-12-17 06:48 | Outpatient (CLI) | payer OTHER, SELFPAY ==
[2018-10-26 11:39] VITALS: BMI 38.9
[2019-09-24 13:04] VITALS: BMI 40.6
--- NOTE | 2019-12-17 06:54 | MRI_ITS ---
STUDY: MRI THORACIC SPINE WITHOUT CONTRAST REASON FOR EXAM: Male, 54 years old. BACK PAIN -- pain mid thoracic to lumbar, no radiculopathy, nki TECHNIQUE: Standardized fat and water weighted pulse sequences were obtained in the sagittal and axial planes. COMPARISON: None. FINDINGS: Normal kyphosis of the thoracic spine. There is no substantial scoliosis. Chronic mild compression fracture of the inferior aspect of T11 with focal kyphosis but no retropulsion into the spinal canal. T1-2, T2-3, T3-4, T4-5, T5-6, T6-7, T7-8, T8-9, T9-10, T10-11, T11-12: T3/T4 there is a moderate size right paracentral disc protrusion which produces mild spinal stenosis of a no cord compression. Normal visualized thoracic cord. Normal conus medullaris that terminates at the L2.. The soft tissue structures are unremarkable. MRI/Spine Thoracic (Routine) IMPRESSION: 1. Chronic mild compression fracture of the inferior endplate of T11 with focal kyphosis but no retropulsion into the spinal canal. 2. Mild degenerative disc disease at T3/T4 but no cord compression. Electronically Signed: Raheem Gonzalez MD at 8:48 EDT Tel , Service support ,
--- NOTE | 2019-12-17 06:54 | MRI_ITS ---
STUDY: MRI LUMBAR SPINE WITHOUT CONTRAST REASON FOR EXAM: Male, 54 years old. BACK PAIN -- pain mid thoracic to lumbar, no radiculopathy, nki TECHNIQUE: Standardized fat and water weighted pulse sequences were obtained in the sagittal and axial planes. COMPARISON: 11/03/2019 FINDINGS: T12-L1: Moderate size left paracentral, preforaminal, and foraminal disc protrusion produces moderate spinal stenosis with moderate left lateral recess stenosis and mild left neural foraminal stenosis. Furthermore, there is an inferiorly extending central disc extrusion which produces moderate spinal stenosis posterior to the L1 vertebral body. Normal lumbar lordosis. There is no substantial scoliosis. Normal conus medullaris that terminates at the L2. L1-2: Moderate bilobed disc protrusion with a moderate sized inferiorly extending central disc extrusion produces moderate spinal stenosis with moderate bilateral lateral recess stenosis and mild bilateral neural foraminal stenosis. L2-3: Mild broad disc protrusion with a large right foraminal protrusion produces mild spinal stenosis with mild bilateral lateral recess stenosis and moderate right neural foraminal stenosis with abutment of the right L2 nerve root laterally. L3-4: Mild bilateral facet hypertrophy and moderate ligament flavum hypertrophy. Moderate broad disc protrusion produces severe spinal stenosis with the severe bilateral lateral recess stenosis with effacement of the L4 nerve roots bilaterally and moderate bilateral neural foraminal stenosis with abutment of the exiting L3 nerve roots bilaterally. L4-5: Moderate bilateral facet hypertrophy and ligament flavum hypertrophy. Large broad disc protrusion produces severe spinal stenosis with severe bilateral lateral recess stenosis with effacement of the L5 nerve roots bilaterally and moderate bilateral neural foraminal stenosis with abutment of the exiting L4 nerve roots bilaterally. L5-S1: Normal endplates. Normal disc height, hydration and morphology. Normal bilateral facet joints. Normal central canal and bilateral lateral recesses. Normal bilateral intervertebral neural foramina. Normal visualized sacral ala. Normal visualized paraspinous soft tissue structures. MRI/Spine Lumbar (Routine) IMPRESSION: Multilevel degenerative changes, as described above. Electronically Signed: Raheem Gonzalez MD at 8:44 EDT Tel , Service support ,
== END ==
PROVIDERS: PCP Family Medicine; Referring Provider Anesthesiology Pain Medicine; Visit Provider Anesthesiology Pain Medicine
DX: M51.34 Other intervertebral disc degeneration, thoracic region (principal); M51.26 Other intervertebral disc displacement, lumbar region; M48.061 Spinal stenosis, lumbar region without neurogenic claudication
CPT/HCPCS: 72146; 72148

== ENCOUNTER → 2020-01-31 15:18 | Outpatient (CLI) | payer OTHER, SELFPAY ==
[2018-10-26 11:39] VITALS: BMI 38.9
[2020-01-31 14:39] VITALS: BMI 38.9
[2020-01-31 17:47] LABS: AST(SGOT) 50 U/L (15-37); Alanine Aminotransfer ALT/SGPT 39 U/L (16-61); Albumin, Serum 3.8 g/dL (3.2-5.0); Alkaline Phosphatase 66 U/L (45-117); Bilirubin, Direct < 0.05 mg/dL (0.00-0.30); Cholesterol 166 mg/dL (200); Globulin 3.8 g/dL (2.2-4.2); High Density Lipoprotein 57 mg/dL; Protein, Total 7.6 g/dL (6.4-8.2); Triglycerides 255 mg/dL; Very Low Density Lipoprotein 51 mg/dL (5-40)
== END ==
PROVIDERS: Physician Assistant Medical
DX: E78.00 Pure hypercholesterolemia, unspecified (principal)
CPT/HCPCS: 36415; 80061; 80076

== ENCOUNTER → 2020-03-02 07:27 | Outpatient (CLI) | payer OTHER, SELFPAY ==
[2018-10-26 11:39] VITALS: BMI 38.9
[2020-02-02 09:34] VITALS: BMI 38.4
--- NOTE | 2020-03-02 07:28 | NM_ITS ---
CLINICAL: 54-year-old male with reported history of mid-low back discomfort. WHOLE BODY 99m Tc MDP RADIONUCLIDE BONE SCINTIGRAPHY COMPARISON: MRI of the thoracic and lumbar spine reports 12/17/2019 FINDINGS: Following the intravenous administration of 26.6 mCi of 99m Tc MDP, whole body bone images reveal: 1. Increased radiopharmaceutical concentration is defined in the lateral glenohumeral compartment of the left shoulder, acromioclavicular compartments of both shoulders, the patellofemoral compartments of the bilateral knees, medial tibial compartment of the right knee, posterior compartment of the right ankle, fifth lumbar vertebra posteriorly on the right, 2. Barely perceptible increased tracer uptake is noted in the right anterior sixth and left anterolateral seventh ribs. 3. The remaining skeletal structures are scintigraphically unremarkable with normal-appearing renal images and urinary bladder activity identified. NM/Bone Scan Whole Body IMPRESSION: 1. The increase in radiopharmaceutical concentration identified in the bilateral shoulders, right and left knees, right ankle and fifth lumbar vertebra is most consistent with degenerative arthritis. 2. Subtle facilitated uptake observed in the bilateral ribs is most consistent with previous trauma-fracture. In patients less than 65 years of age, increased radiopharmaceutical concentration on bone scintigraphy in uncomplicated documented fracture, may take up to 18 months for complete scintigraphic resolution. (Lauri et al, Seminars of Nuclear Medicine, 13:104, 1983). Electronically Signed: Raheem Call DO at 22:03 EST Tel , Service support ,
== END ==
PROVIDERS: PCP Family Medicine; Referring Provider Orthopaedic Surgery; Visit Provider Orthopaedic Surgery
DX: M48.061 Spinal stenosis, lumbar region without neurogenic claudication (principal)
CPT/HCPCS: 78306

== ENCOUNTER → 2020-03-03 10:00 | Outpatient (CLI) | payer OTHER, SELFPAY ==
[2018-10-26 11:39] VITALS: BMI 38.9
[2020-02-02 09:34] VITALS: BMI 38.4
--- NOTE | 2020-03-03 10:03 | RAD_ITS ---
STUDY: X-RAY - PELVIS REASON FOR EXAM: Male, 54 years old. inflammatory polyarthropathy TECHNIQUE: One view of the pelvis was obtained. COMPARISON: None. FINDINGS: There is a non-specific bowel gas pattern. Normal visualized soft tissue structures. Normal bilateral iliac wings, sacroiliac joints and visualized sacrum. Normal visualized bilateral superior and inferior pubic rami. Normal pubic symphysis. Normal ischial tuberosities. Normal visualized right femoral head. Normal right acetabulum. Normal right hip joint. Normal visualized left femoral head. Normal left acetabulum. Normal left hip joint. RAD/Pelvis 1 or 2 Views IMPRESSION: Normal x-ray examination of the pelvis. Electronically Signed: Krishan Martinez MD at 23:59 EST , Service support ,
[2020-03-03 13:17] LABS: Absolute Lymphocyte Count 1.69 X10^3/uL (0.83-4.51); Basophil# 0.07 X10^3/uL; Eosinophil# 0.12 X10^3/uL; Eosinophils% 1.7 % (0-5); Hematocrit 46.8 % (40-54); Hemoglobin 15.1 g/dL (13.0-16.5); Lymphocyte # 1.69 X10^3/ul (4.0); Lymphocyte % 24.1 % (19-41); Mean Corp Hgb Conc 32.3 g/dL (32-36); Mean Corpuscular Hgb 31.7 pg (27.0-32.0); Mean Corpuscular Volume 98.1 fL (80-94); Mean Platelet Vol. 12.4 fl (6.2-12.0); Monocyte% 15.7 % (0-10); NRBC Flagged by Analyzer 0 % (0-5); Neutrophil % 57.2 % (47-70); Platelet Count 139 K/mm3 (150-450); RBC Distribution Width CV 12.7 % (11.6-14.6); RBC Distribution Width SD 45.5 fl (35.1-43.9); Red Blood Count 4.77 M/mm3 (4.6-6.2)
[2020-03-03 13:19] LABS: Erythrocyte Sedimentation Rate 1 mm/hr (0-20)
[2020-03-03 13:30] LABS: ALB/GLOB Ratio 1.3 RATIO (0.9-2.4); AST(SGOT) 29 U/L (15-37); Alanine Aminotransfer ALT/SGPT 31 U/L (16-61); Albumin, Serum 4.2 g/dL (3.2-5.0); Alkaline Phosphatase 72 U/L (45-117); Anion Gap 2 (5-15); BUN 17 mg/dL (7-18); BUN/Creat Ratio 16.5 RATIO (10-20); CRP < 2.90 mg/L (0.0-3.0); Calcium,Total 9.8 mg/dL (8.5-10.1); Chloride 108 mmol/L (98-107); Creatinine, Serum 1.03 mg/dL (0.70-1.30); EST Glomerular Filtration Rate 80 mL/min (>60); Est Glom Filt Rate - Afr Amer 97 mL/min (>60); Globulin 3.3 g/dL (2.2-4.2); Glucose 102 mg/dL (74-106); Potassium 3.7 mmol/L (3.5-5.1); Protein, Total 7.5 g/dL (6.4-8.2); Rheumatoid Factor < 10.0 IU/mL (<15); Sodium Level 142 mmol/L (136-145)
[2020-03-03 14:11] LABS: Hepatitis B Surface Antibody Non-Reactive; Hepatitis B Surface Antigen Non-Reactive (Nonreactive); Hepatitis C Antibody Non-Reactive (Nonreactive)
[2020-03-06 14:26] LABS: ANTINUCLEAR ANTIBODIES DIRECT Negative (Negative)
[2020-03-07 15:21] LABS: CCP IgG Antibodies 4 units (0-19); HLA B27 Positive (.); Hepatitis B Core AB IgM Negative (Negative)
== END ==
PROVIDERS: PCP Family Medicine; Referring Provider Internal Medicine Rheumatology; Visit Provider Internal Medicine Rheumatology
DX: M06.4 Inflammatory polyarthropathy (principal); M48.10 Ankylosing hyperostosis [Forestier], site unspecified; I25.10 Atherosclerotic heart disease of native coronary artery without angina pectoris; I10 Essential (primary) hypertension; E78.5 Hyperlipidemia, unspecified; G47.33 Obstructive sleep apnea (adult) (pediatric); R60.0 Localized edema
CPT/HCPCS: 36415; 72170; 80053; 81374; 85025; 85652; 86038; 86140; 86200; 86431; 86705; 86706; 86803; 87340

== ENCOUNTER → 2020-09-05 11:02 | Outpatient (CLI) | payer OTHER, SELFPAY ==
[2018-10-26 11:39] VITALS: BMI 38.9
[2020-02-02 09:34] VITALS: BMI 38.4
--- NOTE | 2020-09-05 11:07 | VDLE_ITS ---
Reason For Study: Swelling RIGHT LEFT CFV is compressible, spontaneous, competent GSV previously harvested. and demonstrates pulsatile venous flow. CFV is compressible, spontaneous, competent, Procedure and demonstrates pulsatile venous flow. This is a venous duplex using B-mode, color FV is compressible, spontaneous, competent flow and spectral Doppler. and demonstrates pulsatile venous flow. Exam performed in department. POP V is compressible, spontaneous, competent A preliminary report was called and/or faxed and demonstrates pulsatile venous flow. to Ghada RODRÍGUEZ. T/P Trunk is compressible. PTV is compressible. LT PerV is compressible. VL/Venous Duplex US, Unilateral Interpretation Summary There is no evidence of left lower extremity deep vein thrombosis. Report of pr eviously harvested left great saphenous vein Pulsatile venous flow noted on the left consistent with proximal venous hyperte nsion or obstruction Patent and compressible right common femoral vein also with pulsatile flow. Clinical correlation would be appropriate. Ordering Physician: Gregory Coon Referring Physician: Chi Antoine Performed By: Marisa Kumar RVT
== END ==
PROVIDERS: PCP Family Medicine; Referring Provider Nurse Practitioner Family; Visit Provider Nurse Practitioner Family
DX: R60.0 Localized edema (principal)
CPT/HCPCS: 93971

== ENCOUNTER → 2020-10-02 17:10 | Outpatient (CLI) | payer OTHER, SELFPAY ==
[2018-10-26 11:39] VITALS: BMI 38.9
[2020-09-08 09:46] VITALS: BMI 39.1
[2020-10-02 18:23] LABS: Amphetamine Urine VISTA NEGATIVE (<1000 ng/mL); Barbiturate Urine VISTA NEGATIVE (< 200 ng/mL); Benzodiazepine Urine VISTA NEGATIVE (< 200 ng/mL); Cocaine Urine VISTA NEGATIVE (< 300 ng/mL); Ecstacy Urine VISTA NEGATIVE (< 500 ng/mL); Methadone Urine VISTA NEGATIVE (< 300 ng/mL); PCP Urine VISTA NEGATIVE (< 25 ng/mL); THC Urine VISTA NEGATIVE (< 50 ng/mL); Vista UDS pH Range 6
== END ==
PROVIDERS: PCP Family Medicine; Referring Provider Anesthesiology Pain Medicine; Visit Provider Anesthesiology Pain Medicine
DX: F11.20 Opioid dependence, uncomplicated (principal)
CPT/HCPCS: 80307

== ENCOUNTER → 2021-04-04 12:55 | Outpatient (CLI) | payer OTHER, SELFPAY ==
[2018-10-26 11:39] VITALS: BMI 38.9
--- NOTE | 2021-04-04 13:07 | ECHOCS_ITS ---
Version 2 Reason For Study: Dyspnea/SOB Procedure This was a 2D Doppler, Color Flow transthoracic echocardiogram. Contrast injection was performed. Exam performed in department. Left Ventricle Normal LV size. Left ventricular systolic function is normal. The estimated ejection fraction is 55 %. Segmental dysfunction with preserved ejection fraction (see wall motion). Stage 3 diastolic dysfunction. Anterior Morris : Hypokinetic. Mid-Anterior : Hypokinetic. The rest of the wall segments are normal. Right Ventricle Normal RV size. Normal systolic function. Atria The left atrium is mildly enlarged. Normal right atrium. Mitral Valve Normal mitral valve. Tricuspid Valve Normal tricuspid valve. Mild to moderate (1-2+) tricuspid valve insufficiency. Pulmonary artery systolic pressure is 40 mmHg. Aortic Valve Trisinus/trileaflet aortic valve. Moderate focal aortic valve calcification. Great Vessels Normal aortic root. The pulmonary is not well visualized. Normal inferior vena cava. Pericardium/Pleural No pericardial effusion. Medication Diluted definity 2ml given slow IV push to enhance endocardial definition. MMode/2D Measurements & Calculations LVIDd: 4.5 cm IVSd: 1.6 cm Ao root diam: 2.6 cm LVIDs: 3.5 cm LVPWd: 1.6 cm RVDd: 4.3 cm FS: 23.6 % LAV(MOD-bp): 71.7 ml LVAd ap4: 35.0 cm2 SV(MOD-sp4): 74.0 ml LAV(MOD-bp) Indexed: 31.6 ml/m2 LVLd ap4: 7.3 cm LAV(MOD-sp2): 66.1 ml EDV(MOD-sp4): 138.4 ml LAV(MOD-sp4): 74.1 ml EDV(sp4-el): 141.8 ml LVAs ap4: 21.9 cm2 LVLs ap4: 6.2 cm ESV(MOD-sp4): 64.4 ml ESV(sp4-el): 65.6 ml EF(MOD-sp4): 53.5 % EF(sp4-el): 53.8 % SV(sp4-el): 76.3 ml LA A4 area: 23.1 cm2 LA dimension(2D): 5.5 cm RA A4 area: 14.7 cm2 Doppler Measurements & Calculations MV E max greg: 132.8 cm/sec Lat Peak E' Greg: 5.1 cm/sec Med Peak E' Greg: 4.8 cm/sec MV A max greg: 44.4 cm/sec E/E' lat: 25.9 E/E' med: 27.6 MV E/A: 3.0 Ao V2 max: 121.5 cm/sec LV V1 max: 103.3 cm/sec PA V2 max: 76.8 cm/sec Ao max P.9 mmHg LV V1 max P.3 mmHg Ao V2 mean: 72.5 cm/sec Ao mean P.5 mmHg Ao V2 VTI: 23.9 cm TR max greg: 305.4 cm/sec TR max P.3 mmHg ECHO/Echo Complete W/ Contrast Interpretation Summary Normal LV size. Left ventricular systolic function is normal. The estimated ejection fraction is 55 %. The left atrium is mildly enlarged. Segmental dysfunction with preserved ejection fraction (see wall motion). Stage 3 diastolic dysfunction. Contrast injection was performed. Ordering Physician: Mina Enriquez Referring Physician: Philip Coronado Performed By: Anjali Coon, MELITA, RVT
== END ==
PROVIDERS: PCP Family Medicine; Referring Provider Internal Medicine Cardiovascular Disease; Visit Provider Internal Medicine Cardiovascular Disease
DX: R06.02 Shortness of breath (principal)
CPT/HCPCS: 93306; Q9957; A4216; C8929

== ENCOUNTER → 2021-04-12 12:14 | Outpatient (CLI) | payer OTHER, SELFPAY ==
[2018-10-26 11:39] VITALS: BMI 38.9
[2021-04-12 13:37] LABS: AST(SGOT) 22 U/L (15-37); Alanine Aminotransfer ALT/SGPT 28 U/L (16-61); Albumin, Serum 3.9 g/dL (3.2-5.0); Alkaline Phosphatase 82 U/L (45-117); BNP,B-Type NATRIURETIC PEPTIDE 175.2 pg/mL (0-100); Bilirubin, Direct 0.24 mg/dL (0.00-0.30); Globulin 3.3 g/dL (2.2-4.2); Protein, Total 7.2 g/dL (6.4-8.2)
== END ==
PROVIDERS: PCP Family Medicine; Visit Provider Internal Medicine Cardiovascular Disease
DX: R06.00 Dyspnea, unspecified (principal); I25.10 Atherosclerotic heart disease of native coronary artery without angina pectoris; E78.00 Pure hypercholesterolemia, unspecified
CPT/HCPCS: 36415; 80076; 83880

== ENCOUNTER 2021-04-19 06:14 | Outpatient (CLI) | payer OTHER, SELFPAY ==
[2018-10-26 11:39] VITALS: BMI 38.9
--- NOTE | 2021-04-19 12:58 | STRESSREP_ITS ---
Stress Test Report Exercise cardial perfusion stress test. 55-year-old man with a history of abnormal echocardiogram. Medications aspirin clopidogrel simvastatin metoprolol. Myocardial perfusion protocol. Resting EKG demonstrates sinus bradycardia with a rate of 56 bpm normal intervals are noted T wave inversions are noted in leads II, III and aVF. Resting blood pressure is 142/94 mmHg. The patient exercised for total duration of 4 minutes and 30 seconds. The maximum heart rate attained 144 bpm which was 87% of maximum predicted heart rate the maximum workload was 7 metabolic equivalents. At rest there were no ST changes noted to suggest ischemia T wave inversions were noted at peak exercise premature ventricular complexes were noted with occasional bigeminy and occasional trigeminy. This was also noted during recovery. T wave inversions were noted in the inferior leads in the lateral leads with no ST changes noted to suggest ischemia. The patient was noted to be short of breath with exertion and ectopy. The peak blood pressure is 170/100 mmHg. No chest pain was noted. Myocardial perfusion protocol. 14.5 mCi of technetium 99m sestamibi was injected at rest. Patient exercised according to regular Johan protocol for 4-1/2 minutes and at peak exercise 44.7 mCi of technetium 99m sestamibi was injected stress images were obtained stress and rest images were reconstructed and compared in the short axis vertical long and horizontal long axis. Gated images were also obtained. Perfusion SPECT analysis: Review of the stress images demonstrate normal uptake of tracer noted in all areas of the myocardium. The resting images similarly demonstrate normal uptake of tracer noted in all areas of the myocardium. No obvious areas of r eversibility are noted to suggest ischemia and no previous infarct is noted. Gated SPECT analysis: The gated ejection fraction is 55%. Conclusion: Normal exercise myocardial perfusion stress test at a moderate workload. Preserved ejection fraction. Ventricular ectopy noted.
== END 2021-04-19 23:59 | disposition short-term general hospital (02) ==
LOC: CVS 06:16
PROVIDERS: PCP Family Medicine; Referring Provider Internal Medicine Cardiovascular Disease; Visit Provider Internal Medicine Cardiovascular Disease
DX: R06.00 Dyspnea, unspecified (principal); I25.10 Atherosclerotic heart disease of native coronary artery without angina pectoris; R93.1 Abnormal findings on diagnostic imaging of heart and coronary circulation; R06.02 Shortness of breath; Z95.5 Presence of coronary angioplasty implant and graft
CPT/HCPCS: 78452; 93017; A9500; A4216

== ENCOUNTER → 2021-11-26 | Outpatient (CLI) | payer OTHER, SELFPAY ==
[2018-10-26 11:39] VITALS: BMI 38.9
[2021-11-26 10:08] LABS: Absolute Lymphocyte Count 1.44 X10^3/uL (0.83-4.51); Absolute Neutrophil Count 4.9 X10^3/uL (2.0-7.7); Basophil# 0.06 X10^3/uL; Basophil% 0.8 % (0-1); Eosinophil# 0.12 X10^3/uL; Eosinophils% 1.6 % (0-5); Hemoglobin 16.1 g/dL (13.0-16.5); Lymphocyte # 1.44 X10^3/ul (0.83-4.51); Lymphocyte % 19.4 % (19-41); Mean Corp Hgb Conc 32.2 g/dL (32-36); Mean Corpuscular Hgb 30.1 pg (27.0-32.0); Mean Corpuscular Volume 93.5 fL (80-94); Mean Platelet Vol. 11.4 fl (6.2-12.0); Monocyte# 0.86 X10^3/uL; Monocyte% 11.6 % (0-10); NRBC Flagged by Analyzer 0 % (0-5); Neutrophil % 66.2 % (47-70); Platelet Count 126 K/mm3 (150-450); Red Blood Count 5.35 M/mm3 (4.6-6.2); White Blood Count 7.4 K/mm3 (4.4-11.0)
[2021-11-26 10:48] LABS: Anion Gap 4 (5-15); BUN 16 mg/dL (7-18); BUN/Creat Ratio 14.3 RATIO (10-20); Calcium,Total 9.7 mg/dL (8.5-10.1); Chloride 106 mmol/L (98-107); Creatinine, Serum 1.12 mg/dL (0.70-1.30); EST Glomerular Filtration Rate 72 mL/min (>60); Est Glom Filt Rate - Afr Amer 87 mL/min (>60); Glucose 185 mg/dL (74-106); Magnesium 2.1 mg/dL (1.6-2.6); Potassium 4.2 mmol/L (3.5-5.1); Sodium Level 139 mmol/L (136-145); Thyroid Stim Hormone (TSH) 2.05 uIU/mL (0.358-3.74)
== END | disposition home or self-care (01) ==
LOC: LAB 09:42
PROVIDERS: PCP Family Medicine; Visit Provider Nurse Practitioner Family
DX: I48.91 Unspecified atrial fibrillation (principal)
CPT/HCPCS: 36415; 80048; 83735; 84443; 85025

== ENCOUNTER → 2021-12-03 | Outpatient (CLI) | payer OTHER, SELFPAY ==
[2018-10-26 11:39] VITALS: BMI 38.9
== END | disposition home or self-care (01) ==
LOC: PSN 08:11
PROVIDERS: PCP Family Medicine; Referring Provider Internal Medicine Cardiovascular Disease; Visit Provider Internal Medicine Cardiovascular Disease
DX: I48.91 Unspecified atrial fibrillation (principal); Z95.1 Presence of aortocoronary bypass graft
CPT/HCPCS: 93225; 93226

== ENCOUNTER 2021-12-10 09:08 | Inpatient (IN) | payer OTHER, SELFPAY ==
[2018-10-26 11:39] VITALS: BMI 38.9
[2021-12-10] VITALS (29 sets, daily range): BP systolic 103–143; BP diastolic 69–124; PULSE 42–135; RESP 12–35; TEMP 36.6–36.8; O2SAT 93–98; BMI 36.1; BMI 37.0
--- NOTE | 2021-12-10 09:38 | EKG12_ITS ---
Test Reason : SOB Blood Pressure : / mmHG Vent. Rate : 130 BPM Atrial Rate : 000 BPM P-R Int : 000 ms QRS Dur : 098 ms QT Int : 342 ms P-R-T Axes : 000 077 261 degrees QTc Int : 503 ms Atrial fibrillation with rapid ventricular response RSR' or QR pattern in V1 suggests right ventricular conduction delay ST & T wave abnormality, consider inferolateral ischemia Abnormal ECG Confirmed by LIDIA ROJAS, RICK ([id number]), book or script editor MANUEL RIVERA ([id number]) on 12/11/2021 7:46:37 AM Referred By: [place] Confirmed By:RICK MURILLO MD
--- NOTE | 2021-12-10 09:39 | VDLE_ITS ---
Reason For Study: Swelling RIGHT LEFT GSV is normal. CFV is compressible, spontaneous, competent, CFV is compressible, spontaneous, competent and demonstrates pulsatile venous flow. and demonstrates pulsatile venous flow. FV is compressible, spontaneous, competent FV is compressible, spontaneous, competent and demonstrates pulsatile venous flow. and demonstrates pulsatile venous flow. POP V is compressible, spontaneous, competent POP V is compressible, spontaneous, competent and demonstrates pulsatile venous flow. and demonstrates pulsatile venous flow. T/P Trunk is compressible. T/P Trunk is compressible. PTV is compressible. PTV is compressible. LT PerV is compressible. RT PerV is compressible. GSV was previously harvested. Procedure This is a venous duplex using B-mode, color flow and spectral Doppler. Exam performed portable in ED. A preliminary report was called and/or faxed to Dr. Roblero. VL/Venous Duplex US - Ananda Extrem Interpretation Summary Deep veins of the left lower extremity are patent and compressible segmentally. There is no evidence of left lower extremity deep vein thrombosis. The left greater saphenous vein i s surgically absent Deep veins of the right lower extremity are patent and compressible segmentally . There is no evidence of right lower extremity deep vein thrombosis. The right great sapheno us vein appears patent and compressible segmentally. Ordering Physician: Santiago Roblero Referring Physician: MD Cliff Philip Performed By: Marisa Kumar RVT
[2021-12-10] MEDS: Metoprolol Tartrate 5 MG/5 ML Vial IV ×3 (09:49→12:51)
[2021-12-10 09:50] LABS: Absolute Lymphocyte Count 1.37 X10^3/uL (0.83-4.51); Basophil# 0.08 X10^3/uL; Basophil% 1.1 % (0-1); Eosinophil# 0.21 X10^3/uL; Eosinophils% 2.9 % (0-5); Hematocrit 47.9 % (40-54); Hemoglobin 15.9 g/dL (13.0-16.5); Lymphocyte # 1.37 X10^3/ul (0.83-4.51); Lymphocyte % 18.9 % (19-41); Mean Corp Hgb Conc 33.2 g/dL (32-36); Mean Corpuscular Hgb 30.8 pg (27.0-32.0); Mean Corpuscular Volume 92.8 fL (80-94); Mean Platelet Vol. 11.2 fl (6.2-12.0); Monocyte% 8.3 % (0-10); NRBC Flagged by Analyzer 0 % (0-5); Neutrophil # 4.98 X10^3/uL (2.7-7.7); Neutrophil % 68.5 % (47-70); Platelet Count 170 K/mm3 (150-450); RBC Distribution Width CV 14.6 % (11.6-14.6); RBC Distribution Width SD 49.8 fl (35.1-43.9); Red Blood Count 5.16 M/mm3 (4.6-6.2); White Blood Count 7.3 K/mm3 (4.4-11.0)
--- NOTE | 2021-12-10 09:58 | ED.VIS.DYS ---
HPI History of Present Illness Chief Complaint: Shortness of Breath Informant: patient Narrative Narrative: Progressive dyspnea over the past week along with leg swelling. Reports orthopnea overnight. States his CPAP helped yesterday. Diagnosed outpatient in cardiology office with new onset A. fib with RVR 2 weeks ago. History of coronary disease with bypass in 2008 and subsequent stent in 2018. He reports having abnormal heart rhythms for a week prior to seeing cardiology. Review of report from office visit plan was to increase his metoprolol to 100 mg twice daily he had no leg swelling at that time. Further history from patient a week ago had a call from the office, had diltiazem added. He states he would get headaches a few hours afterwards did not take it this morning. He did take his metoprolol. He is also started on Eliquis. States increasing leg swelling also had his Lasix doubled from the call 2 weeks ago. From cardiology office report echocardiogram March 2021 EF of 55% stage III diastolic dysfunction. Mild nonproductive cough. He is COVID vaccinated. He denies any sick contacts. He states he had mild headache however secondary to diltiazem. [facility] Medical History Atherosclerotic heart disease of [place] coronary artery without angina pectoris Atrial fibrillation Essential hypertension HLD (hyperlipidemia) ALICIA treated with BiPAP Palpitations Home Medications aspirin 81 mg tablet,delayed release (Adult Low Dose Aspirin) 81 mg PO QDAY [facility] 08/29/17 [History Last Taken 12/10/21] hydrocodone-acetaminophen 5-325mg 5mg-325mg 0.5 tab PO DAILY PRN Pain 09/08/20 [History Last Taken 12/09/21] metoprolol tartrate 50 mg tablet 100 mg PO BID bp 11/26/21 [History Last Taken 12/10/21] apixaban 5 mg tablet (Eliquis) 5 mg PO BID blood thinner 12/10/21 [History Last Taken 12/10/21] diltiazem HCl 120 mg capsule,extended release 24 hr 120 mg PO DAILY heart 12/10/21 [History Last Taken 12/09/21] furosemide 40 mg tablet (Lasix) 40 mg PO BID water retention 12/10/21 [History Last Taken 12/09/21] simvastatin 40 mg tablet 40 mg PO QPM cholesterol 12/10/21 [History Last Taken 12/09/21] Allergy/AdvReac Type Severity Reaction Status Date / Time No Known Allergies Allergy Verified 12/10/21 09:12 Family History Father CAD (coronary artery disease) Diabetes Cancer Mother Diabetes Brother brain aneurysm rupture Surgical History H/O coronary artery bypass surgery (12/02/08) History of arthroscopy of left shoulder (03/2017) History of coronary artery stent placement (10/26/18) History of left heart catheterization (LHC) (10/26/18) History of tonsillectomy Social History household members: spouse housing: house current occupational status: employed 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 Smoking Status: Never smoker alcohol intake: current alcohol intake frequency: a few times a month substance use type: does not use caffeine: Yes Type: carbonated beverages Number of servings: 5 and coffee Number of servings: 1 what type of physical activity do you participate in: none do you feel safe at home: Yes ROS ROS ED Constitutional Constitutional ED: Denies chills, fever(s) or sweats Eyes Eyes: Denies change in vision ENT ENT ED: Denies dysphagia or sore throat Cardiovascular Cardiovascular: Reports palpitations and other Details: orthopnea ; Denies chest pain, leg edema or racing heartbeat Respiratory/Chest Respiratory/Chest: Reports cough and dyspnea; Denies dyspnea on exertion Gastrointestinal Gastrointestinal: Denies abdominal pain, diarrhea, nausea or vomiting Genitourinary Genitourinary ED: Denies dysuria, hematuria or urinary frequency Musculoskeletal Musculoskeletal: Reports extremity pain and other Details: Bilateral leg swelling. ; Denies back pain or neck pain Integumentary Denies rash or wounds Neurologic Neurologic: Denies headache(s), paresthesias or weakness EXAM Physical Exam Const Vital Signs: 12/10/21 09:09 12/10/21 09:20 12/10/21 10:09 Temperature 98 F Temperature Source Temporal Pulse Rate 63 103 H Respiratory Rate 18 23 H Respiratory Effort Short of Breath Respiratory Depth Normal Respiratory Pattern Tachypnea Blood Pressure 140/124 H 131/82 H Blood Pressure Mean 129 98 Pulse Ox 94 94 Oxygen Delivery Method Room Air Room Air 12/10/21 11:00 12/10/21 12:00 Temperature Temperature Source Pulse Rate 99 135 H Respiratory Rate 24 H 27 H Respiratory Effort Respiratory Depth Respiratory Pattern Blood Pressure 136/103 H 132/98 H Blood Pressure Mean 114 109 Pulse Ox 94 96 Oxygen Delivery Method Room Air Room Air Positive well nourished and well developed General Appearance ED: well developed and NAD HEENT Reports moist mucous membranes normocephalic and atraumatic Eyes PERRL, EOMs intact bilaterally and conjunctivae normal General Eye ED: Yes normal appearance of both eyes Neck no lymphadenopathy and supple General: Negative for tenderness Chest Wall Chest: Negative for tenderness Resp normal respiratory effort and normal air movement Effort and Inspection: symmetric chest movement; Negative for respiratory distress Cardio no murmurs Rate: tachycardic Rhythm: abnormal rhythm Peripheral Pulses: pulses 2+ throughout GI normal to inspection, nondistended, normoactive bowel sounds and non-tender Palpation: Negative for guarding or rebound tenderness present Back/Spine no CVA tenderness and no thoracic nor lumbar tenderness Extremity normal to inspection Extremity Narrative: 2+ bilateral lower extremity edema left mildly greater than right with mild calf tenderness. Pulses were intact distally. General Extremety ED: Yes edema General Extremity: edema Neuro oriented x3 and no sensory deficits noted Sensorium / Orientation: awake and alert Skin no rashes or lesions noted and no wounds MDM MDM MDM Narrative Medical decision making narrative: patient EKG A. fib with RVR. He is ordered for IV Lopressor after 2 doses went down to the 80s for heart rate. Clinical heart failure concerns with leg swelling orthopnea yesterday. Chest x-ray reviewed myself concerns for pleural fluid, per radiology possible infiltrate he had a slight nonproductive cough therefore not likely pneumonia. White cell 7.3. Creatinine 1.23. BNP 325. He has no chest pains. he was ordered for Lasix 40 mg IV. With ambulation heart rate went up to 170. He states he was more short of breath. Additional IV Lopressor with heart rates on recheck 120s to 130s. Patient failing outpatient treatment. Worsening symptoms with now CHF findings. Echocardiogram back in March 2021 EF of 55 stage III diastolic dysfunction. I spoke with hospitalist Dr. Medeiros we will add IV Cardizem bolus to be given in ED. He will be admitted to PCU for further management. Blood pressure remained stable. DVT studies were negative. COVID testing negative. Lab Data Attestation: I reviewed the patient's lab results. Labs: Laboratory Results - last 24 hr 12/10/21 12/10/21 12/10/21 09:25 09:25 09:25 WBC 7.3 RBC 5.16 Hgb 15.9 Hct 47.9 MCV 92.8 MCH 30.8 MCHC 33.2 RDW Std Deviation 49.8 H RDW Coeff of Ashwini 14.6 Plt Count 170 MPV 11.2 Immature Gran % (Auto) 0.300 Neut % (Auto) 68.5 Lymph % (Auto) 18.9 L [place] % (Auto) 8.3 Eos % (Auto) 2.9 Baso % (Auto) 1.1 H Absolute Neuts (auto) 5.0 Absolute Lymphs (auto) 1.37 Nucleated RBC % 0 Sodium 140 Potassium 3.4 L Chloride 107 Carbon Dioxide 26.0 Anion Gap 7 BUN 16 Creatinine 1.23 Estim Creat Clear Calc 67.06 Est GFR (MDRD) Af Amer 78 Est GFR (MDRD) Non-Af 65 BUN/Creatinine Ratio 13.0 Glucose 221 H Calcium 9.4 Total Bilirubin 1.10 H AST 29 ALT 33 Alkaline Phosphatase 93 Troponin I High Sens 19 B-Natriuretic Peptide 325.6 H Total Protein 7.5 Albumin 3.9 Globulin 3.6 Albumin/Globulin Ratio 1.1 12/10/21 12:16 WBC RBC Hgb Hct MCV MCH MCHC RDW Std Deviation RDW Coeff of Ashwini Plt Count MPV Immature Gran % (Auto) Neut % (Auto) Lymph % (Auto) [place] % (Auto) Eos % (Auto) Baso % (Auto) Absolute Neuts (auto) Absolute Lymphs (auto) Nucleated RBC % Sodium Potassium Chloride Carbon Dioxide Anion Gap BUN Creatinine Estim Creat Clear Calc Est GFR (MDRD) Af Amer Est GFR (MDRD) Non-Af BUN/Creatinine Ratio Glucose Calcium Total Bilirubin AST ALT Alkaline Phosphatase Troponin I High Sens 20 B-Natriuretic Peptide Total Protein Albumin Globulin Albumin/Globulin Ratio Radiography Diagnostic Testing: Clinical Impression(s) from Imaging Studies Chest X-Ray 12/10/21 10:15 IMPRESSION: Bibasilar atelectasis or pneumonia. Electronically Signed: Raheem Gonzalez MD at 10:28 EDT , EKG Initial EKG: Attestation: I personally reviewed and interpreted this EKG as follows: Comments: Atrial fibrillation with rate of 130, no ST changes T wave inversions inferior lateral leads. Discharge Plan Dx/Rx/DC Orders Clinical Impression: Atrial fibrillation with rapid ventricular response, CHF (congestive heart failure), Dyspnea, Atherosclerotic heart disease of [place] coronary artery without angina pectoris Disposition Disposition: Acute Care Hospital [facility] Discharge Date/Time: 12/10/21 15:33
[2021-12-10 10:08] LABS: ALB/GLOB Ratio 1.1 RATIO (0.9-2.4); AST(SGOT) 29 U/L (15-37); Alanine Aminotransfer ALT/SGPT 33 U/L (16-61); Albumin, Serum 3.9 g/dL (3.2-5.0); Alkaline Phosphatase 93 U/L (45-117); Anion Gap 7 (5-15); BNP,B-Type NATRIURETIC PEPTIDE 325.6 pg/mL (0-100); BUN 16 mg/dL (7-18); Calcium,Total 9.4 mg/dL (8.5-10.1); Chloride 107 mmol/L (98-107); Creatinine, Serum 1.23 mg/dL (0.70-1.30); EST Glomerular Filtration Rate 65 mL/min (>60); Est Glom Filt Rate - Afr Amer 78 mL/min (>60); Estimated Creatinine Clearance 67.06 ml/min; Globulin 3.6 g/dL (2.2-4.2); Glucose 221 mg/dL (74-106); Potassium 3.4 mmol/L (3.5-5.1); Protein, Total 7.5 g/dL (6.4-8.2); Sodium Level 140 mmol/L (136-145); Troponin-I HS (w/2H Reflex) 19 pg/mL (3.0-78.0)
--- NOTE | 2021-12-10 10:15 | RAD_ITS ---
STUDY: X-RAY CHEST REASON FOR EXAM: Male, 56 years old. sob TECHNIQUE: PA and lateral views of the chest. COMPARISON: 09/24/2019 FINDINGS: Status post median sternotomy. Alveolar opacity in the lower aspect of both lungs consistent with bibasilar atelectasis or pneumonia. There is no demonstrated pleural abnormality. There is moderate cardiac enlargement. Normal mediastinum and rosy. Normal visualized pulmonary arteries. Normal visualized aortic arch and descending thoracic aorta. Normal visualized thoracic spine. Normal visualized ribs, clavicles, and shoulders. There is no demonstrated abnormality of the visualized soft tissue structures of the upper abdomen. RAD/Chest PA and Lateral IMPRESSION: Bibasilar atelectasis or pneumonia. Electronically Signed: Raheem Gonzalez MD at 10:28 EDT ,
[2021-12-10] MEDS: Furosemide 40 MG/4 ML Vial IV ×2 (11:44→17:58)
[2021-12-10 11:47] LABS: Reflex Troponin-HS? (from REC) Y
[2021-12-10 12:41] LABS: Troponin-I HS 20 pg/mL (3.0-78.0)
[2021-12-10] MEDS: dilTIAZem 25 MG/5 ML Vial 15 MG IV BOLUS (13:35)
--- NOTE | 2021-12-10 13:43 | NURSING ---
MARK PAPPAS AFIB RVR, CHF
--- NOTE | 2021-12-10 15:06 | PCM.HP.STD ---
[facility] - General General Date of Admission: 12/10/21 Date of Service: 12/10/21 Chief Complaint: Shortness of breath for 1.5 to 2 weeks. Increased leg swelling for last 2 to 3 days. HPI Narrative BHARAT HOLLY, is a 56 M with known history of coronary artery status post CABG and PCI/stent came to ED with progressive worsening of shortness of breath for 1.5 to 2 weeks. Patient also has increased leg swelling for last 2 to 3 days more than his baseline. Patient denies chest pain pressure or tightness. He was newly found A. fib with RVR and increased leg swelling about 2 weeks ago, seen in coremaker supervisor office and increased furosemide 40 mg once daily to twice daily, Cardizem CD 120 mg daily, metoprolol tartrate dose increased from 50 mg twice daily to 100 mg twice daily and started on Eliquis 5 mg twice daily. Patient did not understand and is still taking metoprolol 50 g twice daily but taking other medications mentioned above. Patient symptoms did not get better and actually he felt palpitation/heart racing and worsening of shortness of breath therefore came to ED. In ED, EKG shows A. fib with RVR 130 beats per, QTC 503 ms, RSR' pattern in V1 V2 suggestive of RV conduction delay. There is T wave inversion in inferior and lateral leads. Patient was given IV metoprolol 5 mg but did not respond therefore diltiazem 15 mg IV bolus given and heart rate slowed down 80s to 90s per blood. Lasix 40 g IV was given. Patient is further admitted. Labs and work-up done in the ED reviewed and discussed in assessment and plan [facility] Medical History Atherosclerotic heart disease of [place] coronary artery without angina pectoris Atrial fibrillation Essential hypertension HLD (hyperlipidemia) ALICIA treated with BiPAP Palpitations Home Medications aspirin 81 mg tablet,delayed release (Adult Low Dose Aspirin) 81 mg PO QDAY 08/29/17 [History Last Taken 10/26/18] hydrocodone-acetaminophen 5-325mg 5mg-325mg 0.5 tab PO DAILY PRN Pain 09/08/20 [History Last Taken Unknown] metoprolol tartrate 50 mg tablet 100 mg PO BID 11/26/21 [History Last Taken Unknown] apixaban 5 mg tablet (Eliquis) 5 mg PO BID blood thinner 12/10/21 [History Last Taken 12/10/21] diltiazem HCl 120 mg capsule,extended release 24 hr 120 mg PO DAILY heart 12/10/21 [History Last Taken 12/09/21] furosemide 40 mg tablet (Lasix) 40 mg PO BID water retention 12/10/21 [History Last Taken 12/09/21] simvastatin 40 mg tablet 40 mg PO QPM cholesterol 12/10/21 [History Last Taken 12/09/21] Allergy/AdvReac Type Severity Reaction Status Date / Time No Known Allergies Allergy Verified 12/10/21 09:12 Family History Father CAD (coronary artery disease) Diabetes Cancer Mother Diabetes Brother brain aneurysm rupture Surgical History H/O coronary artery bypass surgery (12/02/08) History of arthroscopy of left shoulder (03/2017) History of coronary artery stent placement (10/26/18) History of left heart catheterization (LHC) (10/26/18) History of tonsillectomy Social History household members: spouse housing: house current occupational status: employed 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 No fever. Mild short of breath. HEENT: Reports systems reviewed and no addt'l complaints, except as documented Respiratory/Chest: As described in HPI. CABG scar. Gastrointestinal: Denies coffee ground emesis, hematemesis or vomiting Genitourinary: Denies burning urination or new urinary tract symptoms Musculoskeletal: Reports joint pain and limited range of motion Neurologic: Denies seizure-like activity skin: No ulcer. No rash Endocrinology: Reports systems reviewed and no addt'l complaints, except as documented Hematologic/Lymphatic: Reports systems reviewed and no addt'l complaints, except as documented Rest 14 ROS are negative except as mentioned in HPI Vital Signs Vital Signs Vital Signs: 12/10/21 09:09 12/10/21 09:20 12/10/21 10:09 Temperature 98 F Temperature Source Temporal Pulse Rate 63 103 H Respiratory Rate 18 23 H Respiratory Effort Short of Breath Respiratory Depth Normal Respiratory Pattern Tachypnea Blood Pressure 140/124 H 131/82 H Blood Pressure Mean 129 98 Pulse Ox 94 94 Oxygen Delivery Method Room Air Room Air 12/10/21 11:00 12/10/21 12:00 12/10/21 13:37 Temperature Temperature Source Pulse Rate 99 135 H 105 H Respiratory Rate 24 H 27 H 24 H Respiratory Effort Respiratory Depth Respiratory Pattern Blood Pressure 136/103 H 132/98 H 120/96 H Blood Pressure Mean 114 109 104 Pulse Ox 94 96 96 Oxygen Delivery Method Room Air Room Air Room Air 12/10/21 14:07 Temperature 98 F Temperature Source Temporal Pulse Rate 105 H Respiratory Rate 24 H Respiratory Effort Respiratory Depth Respiratory Pattern Blood Pressure 120/96 H Blood Pressure Mean 104 Pulse Ox 96 Oxygen Delivery Method Room Air Weight Weight: 245 lb Body Mass Index (BMI) 36.1 Physical Exam Narrative General: Alert, Oriented x3, Cooperative HEENT: Atraumatic, PERRLA, EOMI, Normocephalic Oral: Oral mucosa dry. No Gingival or Mucosal Lesions/ Ulcerations Neck: Supple, No JVD, Negative Carotid Bruits Lungs: Air entry diminished in bilateral lung bases. Fine crackles present. Cardiovascular: A. fib with RVR, CABG scar. S1-S2 irregular no murmurs Abdomen: Bowel Sounds Present, Soft, Non Tender, Non-Distended : No renal angle tenderness. No suprapubic tenderness. Extremities: Bilateral LE 3+ pitting edema, left more than right. Capillary Refill Less than 3 Seconds Skin: Mild redness of both legs, venous congestion. No tenderness or features suggestive of cellulitis Musculoskeletal: No Tenderness to Palpation of Joints or Extremities Neurological: Cranial nerves II-XII grossly intact, DTR 2+/4 and Symmetrical, Neuro grossly intact Psych/Mental Status: Normal Affect, Appropriate. Results Lab / Micro Data Result Diagrams: 12/10/21 09:25 12/10/21 09:25 Labs: Laboratory Results - last 24 hr 12/10/21 09:25: WBC 7.3, RBC 5.16, Hgb 15.9, Hct 47.9, MCV 92.8, MCH 30.8, MCHC 33.2, RDW Std Deviation 49.8 H, RDW Coeff of Ashwini 14.6, Plt Count 170, MPV 11.2, Immature Gran % (Auto) 0.300, Neut % (Auto) 68.5, Lymph % (Auto) 18.9 L, [place] % (Auto) 8.3, Eos % (Auto) 2.9, Baso % (Auto) 1.1 H, Absolute Neuts (auto) 5.0, Absolute Lymphs (auto) 1.37, Nucleated RBC % 0 12/10/21 09:25: Sodium 140, Potassium 3.4 L, Chloride 107, Carbon Dioxide 26.0, Anion Gap 7, BUN 16, Creatinine 1.23, Estim Creat Clear Calc 67.06, Est GFR (MDRD) Af Amer 78, Est GFR (MDRD) Non-Af 65, BUN/Creatinine Ratio 13.0, Glucose 221 H, Calcium 9.4, Total Bilirubin 1.10 H, AST 29, ALT 33, Alkaline Phosphatase 93, Troponin I High Sens 19, Total Protein 7.5, Albumin 3.9, Globulin 3.6, Albumin/Globulin Ratio 1.1 12/10/21 09:25: B-Natriuretic Peptide 325.6 H 12/10/21 12:16: Troponin I High Sens 20 Micro: Microbiology 12/10/21 09:53 Nasal Secretion SARS-CoV-2 Antigen (Rapid) - Final Radiology Impression Chest X-Ray 12/10/21 10:15 IMPRESSION: Bibasilar atelectasis or pneumonia. Electronically Signed: Raheem Gonzalez MD at 10:28 EDT , Assessment & Plan Assessment/Plan (1) New onset atrial fibrillation: (2) Acute on chronic heart failure with preserved ejection fraction (HFpEF): PLAN: Plan This 56-year-old gentleman admitted with worsening shortness of breath, leg swelling and EKG consistent with A. fib with RVR: 1. Acute on chronic HFpEF with atherosclerotic heart disease status post bypass and PCI: Patient is being admitted in PCU. Had CABG in 2008 and stent/PCI in 2018. Last seen in cardiology office by Gregory arroyo on 11/26/2021. 2D echo in March 2021 EF 55%, LA mildly enlarged, stage III diastolic dysfunction, mild eccentric MR and mild TR. Last stress test in September 2019 reported normal exercise myocardial perfusion stress test. No clinical angina noted. Started on Lasix 40 mg IV twice daily. Heart failure core measures including intake and output, fluid restriction less than 1500 mL, daily weight monitoring, kidney and electrolytes monitoring. Continue patient cardiac medications including baby aspirin, high intensity statin and beta-haresh. BNP elevated. Chest x-ray individually reviewed shows central pulmonary venous congestion and bibasilar infiltrate suggestive of atelectasis. Patient does not have signs and symptoms of pneumonia. First isolated troponin negative. Acute etiology of heart with exertion clear, cycle cardiac enzymes. 2D echo ordered. 2. Recent diagnosis of A. fib with RVR: Patient was suddenly diagnosed A. fib with RVR about 2 weeks ago. Started on low-dose Cardizem drip. Continue Eliquis 5 mg twice daily and metoprolol 100 mg twice daily. Monitor heart rate and blood pressure. 3. Mild hypokalemia: Potassium getting replaced. Start on spironolactone 25 mg daily from tomorrow a.m. Serum magnesium and phosphorus ordered. 4. Other comorbidities include ALICIA on BiPAP, essential hypertension: Home medication reconciliation done. VT prophylaxis: On Eliquis 5 mg twice daily. Living will/advanced directive/end of life care: Patient does not have living will or advanced directive. Patient's next to kin is his sisters. After discussion of benefits/risks procedures involved with full code, DNR CC arrest and DNR CC, the patient opted for full code. Patient does want artificial life support including intubation, tube feed, ventilator and/chest compression, central venous catheter, vasopressor and DC shock if needed Total time spent in [id number] encounter in discussion of advanced directive 16 minutes. Microbiology Past 72 Hours 12/10/21 09:53 Nasal Secretion SARS-CoV-2 Antigen (Rapid) - Final Laboratory Results 12/10/21 09:25: WBC 7.3, RBC 5.16, Hgb 15.9, Hct 47.9, MCV 92.8, MCH 30.8, MCHC 33.2, RDW Std Deviation 49.8 H, RDW Coeff of Ashwini 14.6, Plt Count 170, MPV 11.2, Immature Gran % (Auto) 0.300, Neut % (Auto) 68.5, Lymph % (Auto) 18.9 L, [place] % (Auto) 8.3, Eos % (Auto) 2.9, Baso % (Auto) 1.1 H, Absolute Neuts (auto) 5.0, Absolute Lymphs (auto) 1.37, Nucleated RBC % 0 12/10/21 09:25: Sodium 140, Potassium 3.4 L, Chloride 107, Carbon Dioxide 26.0, Anion Gap 7, BUN 16, Creatinine 1.23, Estim Creat Clear Calc 67.06, Est GFR (MDRD) Af Amer 78, Est GFR (MDRD) Non-Af 65, BUN/Creatinine Ratio 13.0, Glucose 221 H, Calcium 9.4, Total Bilirubin 1.10 H, AST 29, ALT 33, Alkaline Phosphatase 93, Troponin I High Sens 19, Total Protein 7.5, Albumin 3.9, Globulin 3.6, Albumin/Globulin Ratio 1.1 12/10/21 09:25: B-Natriuretic Peptide 325.6 H 12/10/21 12:16: Troponin I High Sens 20 Clinical Impression(s) from Imaging Studies Chest X-Ray 12/10/21 10:15 IMPRESSION: Bibasilar atelectasis or pneumonia. Electronically Signed: Raheem Gonzalez MD at 10:28 EDT , Charges/Coding Visit Charges Inpatient E&M: 82034 Init Hosp L3 Procedures Hospitalists Procedures: 64806 Advncd Care Plan 30 Min
--- NOTE | 2021-12-10 15:49 | ECHOCS_ITS ---
Reason For Study: Dyspnea/SOB, AFIB Procedure This was a 2D Doppler, Color Flow transthoracic echocardiogram. The study was technically difficult. Contrast injection was performed. Exam performed portable in patient room. Left Ventricle Segmental dysfunction with preserved ejection fraction (see wall motion). The estimated ejection fraction is 55 %. Unable to assess diastolic dysfunction. Right Ventricle Based upon the 2D echocardiographic images obtained there appears to be grossly normal right ventricular size and systolic function. Atria The left atrium is moderately enlarged. Normal right atrium. No doppler evidence for ASD. Mitral Valve There is mild mitral annular calcification. Mild focal mitral valve calcification of the anterior leaflet. Trivial mitral valve insufficiency. Tricuspid Valve The tricuspid valve is not well visualized. Mild tricuspid valve insufficiency. Unable to estimate RV systolic pressure/pulmonary artery pressure due to technically difficult study. Aortic Valve The aortic valve leaflets are not well visualized, however, there appears to be moderate focal thickening present. Pulmonic Valve The pulmonic valve is not well visualized. Great Vessels The aortic root is not well visualized. Pericardium/Pleural No pericardial effusion. Medication Diluted definity 2ml given slow IV push to enhance endocardial definition. MMode/2D Measurements & Calculations LA dimension: 5.3 cm LAV(MOD-bp): 83.7 ml LA A4 area: 24.0 cm2 LAV(MOD-bp) Indexed: 36.8 ml/m2 LAV(MOD-sp2): 77.9 ml LAV(MOD-sp4): 88.4 ml Doppler Measurements & Calculations MV E max pj: 125.6 cm/sec Ao V2 max: 82.7 cm/sec LV V1 max: 72.0 cm/sec Ao max P.7 mmHg LV V1 max P.1 mmHg ECHO/Echo Complete W/ Contrast Interpretation Summary The study was technically difficult. Contrast injection was performed. Segmental dysfunction with preserved ejection fraction (see wall motion). The estimated ejection fraction is 55 %. The left atrium is moderately enlarged. There is mild mitral annular calcification. Mild focal mitral valve calcification of the anterior leaflet. Trivial mitral valve insufficiency. Mild tricuspid valve insufficiency. The aortic valve leaflets are not well visualized, however, there appears to be moderate focal thickening present. Unable to estimate RV systolic pressure/pulmonary artery pressure due to techni skinny difficult study. Unable to assess diastolic dysfunction. Ordering Physician: Hugo Medeiros Referring Physician: MD Cliff Philip Performed By: Ariel Hensley RCS
[2021-12-10] MEDS: Potassium Chloride 10mEq/100mL 10 MEQ/100 ML IV.SOLN. 100 MEQ IV BOLUS (16:16)
[2021-12-10 17:08] LABS: Magnesium 1.7 mg/dL (1.6-2.6); Phosphorus 3.4 mg/dL (2.5-4.9); Troponin-I HS 17 pg/mL (3.0-78.0)
[2021-12-10] MEDS: Potassium Chloride 10mEq/100mL 10 MEQ/100 ML IV.SOLN. 50 MEQ IV BOLUS (17:58)
[2021-12-10] MEDS: Atorvastatin Calcium 40 MG Tablet PO (20:22)
[2021-12-10] MEDS: Metoprolol Tartrate 100 MG Tablet PO (20:22)
[2021-12-10] MEDS: APIXABAN 5 MG TABLET PO (20:23)
[2021-12-11] VITALS (46 sets, daily range): BP systolic 102–145; BP diastolic 53–115; PULSE 51–136; RESP 12–38; TEMP 36.1–36.9; O2SAT 86–98
[2021-12-11 04:59] LABS: Absolute Lymphocyte Count 2.04 X10^3/uL (0.83-4.51); Absolute Neutrophil Count 4.8 X10^3/uL (2.0-7.7); Basophil# 0.08 X10^3/uL; Eosinophils% 2.4 % (0-5); Hematocrit 44.4 % (40-54); Hemoglobin 14.7 g/dL (13.0-16.5); Lymphocyte # 2.04 X10^3/ul (0.83-4.51); Lymphocyte % 24.9 % (19-41); Mean Corp Hgb Conc 33.1 g/dL (32-36); Mean Corpuscular Hgb 30.9 pg (27.0-32.0); Mean Corpuscular Volume 93.5 fL (80-94); Mean Platelet Vol. 11.1 fl (6.2-12.0); Monocyte# 1.06 X10^3/uL; Monocyte% 12.9 % (0-10); NRBC Flagged by Analyzer 0 % (0-5); Neutrophil # 4.79 X10^3/uL (2.7-7.7); Neutrophil % 58.6 % (47-70); Platelet Count 167 K/mm3 (150-450); RBC Distribution Width CV 14.6 % (11.6-14.6); RBC Distribution Width SD 50.3 fl (35.1-43.9); Red Blood Count 4.75 M/mm3 (4.6-6.2); White Blood Count 8.2 K/mm3 (4.4-11.0)
[2021-12-11 05:37] LABS: Anion Gap 8 (5-15); BUN 16 mg/dL (7-18); BUN/Creat Ratio 15.8 RATIO (10-20); Calcium,Total 8.8 mg/dL (8.5-10.1); Chloride 103 mmol/L (98-107); Cholesterol 131 mg/dL (200); Creatinine, Serum 1.01 mg/dL (0.70-1.30); EST Glomerular Filtration Rate 81 mL/min (>60); Est Glom Filt Rate - Afr Amer 98 mL/min (>60); Estimated Creatinine Clearance 81.67 ml/min; Glucose 117 mg/dL (74-106); High Density Lipoprotein 36 mg/dL; Potassium 3.4 mmol/L (3.5-5.1); Sodium Level 138 mmol/L (136-145); Thyroid Stim Hormone (TSH) 1.29 uIU/mL (0.358-3.74); Triglycerides 89 mg/dL; Very Low Density Lipoprotein 18 mg/dL (5-40)
[2021-12-11] MEDS: Aspirin E.C. 81 MG Tablet PO (08:17)
[2021-12-11] MEDS: Spironolactone 25 MG Tablet PO (08:17)
[2021-12-11] MEDS: Metoprolol Tartrate 100 MG Tablet PO ×2 (08:17→22:22)
[2021-12-11] MEDS: APIXABAN 5 MG TABLET PO ×2 (08:18→22:22)
[2021-12-11] MEDS: Furosemide 40 MG/4 ML Vial IV ×2 (08:18→17:15)
[2021-12-11] MEDS: Potassium Chloride Oral Tablet 20 MEQ 40 MEQ PO (09:49)
--- NOTE | 2021-12-11 11:40 | CASEMGMT ---
RN CM Face to Face with patient for initial transition planning/care coordination assessment. RN CM introduced self and role at [facility]. Patient lying in bed, alert and oriented. Patient willing to participate in assessment and is able to answer all questions appropriately. Care providers, pharmacy, and demographics verified. Patient wishes to discharge home, denies need for home health at this time. Patient states he has no further needs or concerns at this time. CM to follow for discharge planning needs that may arise. [facility] Specialists: Mina, stone sawyer; Cynthia, pain Preferred Pharmacy: Korina [facility]; [facility] at discharge. Insurance: [employer] Prescription Benefit: yes Living Will/HPOA: none LNOK: sisters Living Arrangements: Patient lives in a 2nd story apartment. Patient states he is independent and able to ambulate stairs. Transportation: self, sisters DME/HHC: Patient states he has bipap at home. Patient has had HHC in the past but could not recall agency. Disposition Plan: Patient to discharge home with family support and follow-up plans in place. Mairsa GOLDBERG, RN, CM
--- NOTE | 2021-12-11 12:16 | PCM.PN.HOSP ---
Subjective Subjective Follow-up on Karrie white with RVR/acute exacerbation of heart failure preserved EF: Patient was seen and examined. He complains of feeling slightly short of breath. He denied any chest pain or palpitation. His Cardizem drip has been switched off for bradycardia. Objective Data Objective Data Vital Signs: Vital Signs Temp Pulse Resp BP Pulse Ox O2 Del Method O2 Flow Rate 98.5 F 69 24 H 119/90 H 94 Room Air 2 12/11/21 08:00 12/11/21 12:00 12/11/21 12:00 12/11/21 12:00 12/11/21 12:00 12/11/21 12:00 12/11/21 06:00 FiO2 21 12/11/21 07:10 Oxygen Flow Rate (L/min) 2 Oxygen Delivery Method Room Air Weight: 112.4 kg Body Mass Index (BMI) 37.0 Intake & Output: Intake and Output for Last 24 Hours 12/09/21 12/10/21 12/11/21 23:59 23:59 23:59 Intake Total 277.75 / 517.75 774.00 / 774.00 Output Total 1750 / 1750 Balance 277.75 / -332.25 -976.00 / -976.00 Lab / Micro Data Result Diagrams: 12/11/21 04:11 12/11/21 04:11 Labs: Laboratory Results - last 24 hr 12/10/21 12:16: Troponin I High Sens 20 12/10/21 16:30: Phosphorus 3.4, Magnesium 1.7, Troponin I High Sens 17 12/11/21 04:11: WBC 8.2, RBC 4.75, Hgb 14.7, Hct 44.4, MCV 93.5, MCH 30.9, MCHC 33.1, RDW Std Deviation 50.3 H, RDW Coeff of Ashwini 14.6, Plt Count 167, MPV 11.1, Immature Gran % (Auto) 0.200, Neut % (Auto) 58.6, Lymph % (Auto) 24.9, [place] % (Auto) 12.9 H, Eos % (Auto) 2.4, Baso % (Auto) 1.0, Absolute Neuts (auto) 4.8, Absolute Lymphs (auto) 2.04, Nucleated RBC % 0 12/11/21 04:11: Sodium 138, Potassium 3.4 L, Chloride 103, Carbon Dioxide 27.0, Anion Gap 8, BUN 16, Creatinine 1.01, Estim Creat Clear Calc 81.67, Est GFR (MDRD) Af Amer 98, Est GFR (MDRD) Non-Af 81, BUN/Creatinine Ratio 15.8, Glucose 117 H, Calcium 8.8, Triglycerides 89, Cholesterol 131, LDL Cholesterol 77, VLDL Cholesterol 18, HDL Cholesterol 36 L, TSH 1.29 Micro: Microbiology 12/10/21 09:53 Nasal Secretion SARS-CoV-2 Antigen (Rapid) - Final Radiography Diagnostic Testing: Radiology Impression Echocardiogram 12/10/21 15:49 Interpretation Summary The study was technically difficult. Contrast injection was performed. Segmental dysfunction with preserved ejection fraction (see wall motion). The estimated ejection fraction is 55 %. The left atrium is moderately enlarged. There is mild mitral annular calcification. Mild focal mitral valve calcification of the anterior leaflet. Trivial mitral valve insufficiency. Mild tricuspid valve insufficiency. The aortic valve leaflets are not well visualized, however, there appears to be moderate focal thickening present. Unable to estimate RV systolic pressure/pulmonary artery pressure due to technically difficult study. Unable to assess diastolic dysfunction. Ordering Physician: Hugo Medeiros Referring Physician: MD Cliff Philip Performed By: Ariel Hensley RCS Physical Exam Narrative Physical exam: General: Alert, Oriented x3, Cooperative, on 2L oxygen HEENT: Atraumatic Oral: Moist Mucosa Neck: Supple Lungs: Diminished to auscultation Cardiovascular: HS I+II, regular, no murmurs Abdomen: Bowel Sounds Present, Soft, Non Tender Extremities: Bilateral edema+1-2 Skin: No rashes, No breakdown Neurological: Grossly intact Psych/Mental Status: Appropriate Assessment & Plan Assessment/Plan (1) New onset atrial fibrillation: (2) Acute on chronic heart failure with preserved ejection fraction (HFpEF): PLAN: Plan 1. A fib with RVR, newly diagnosed rate controlled, continue metoprolol and Eliquis Home Cardizem on hold for now Will discontinue Cardizem drip because her heart rate is slightly bradycardic 2. Acute on chronic HFpEF, improving, continue on Lasix IV BID 3. Hypokalemia, replaced 4. CAD s/p CABG,s/p stent/PCI 2D echo in this admission showed an EF of 55% Continue on aspirin, statin 5. ALICIA on BiPAP, 6. Hypertension, controlled, continue metoprolol for now 7. DVT prophylaxis?on Eliquis Charges/Coding Visit Charges Inpatient E&M: 30875 Subs Hosp L2
[2021-12-11 13:15] LABS: BNP,B-Type NATRIURETIC PEPTIDE 189.6 pg/mL (0-100)
--- NOTE | 2021-12-11 13:45 | CASEMGMT ---
Patient does not have a Healthcare Power of Product Safety Expert or Healthcare Living Will. Patient is not interested in completing documents. Chanel ERNST
[2021-12-11] MEDS: Metoprolol Tartrate 5 MG/5 ML Vial IV ×2 (17:15→20:15)
--- NOTE | 2021-12-11 18:49 | PCM.HOSP.N ---
Hospitalist Note Notified by RN that patient continues to have A. fib with RVR despite previous dose of IV metoprolol. Discussed case with Dr. Ruano, metoprolol 5 mg IV x1 ordered along with Cardizem 60 mg every 8 p.o.
[2021-12-11] MEDS: dilTIAZem 60 MG Tablet PO (22:21)
[2021-12-11] MEDS: Atorvastatin Calcium 40 MG Tablet PO (22:23)
[2021-12-12] VITALS (38 sets, daily range): BP systolic 101–143; BP diastolic 58–127; PULSE 91–168; RESP 16–27; TEMP 36.6–36.8; O2SAT 92–99
[2021-12-12] MEDS: dilTIAZem 60 MG Tablet PO (05:18)
[2021-12-12 05:54] LABS: Absolute Lymphocyte Count 2.16 X10^3/uL (0.83-4.51); Absolute Neutrophil Count 5.6 X10^3/uL (2.0-7.7); Basophil# 0.09 X10^3/uL; Eosinophil# 0.22 X10^3/uL; Eosinophils% 2.4 % (0-5); Hematocrit 48.4 % (40-54); Hemoglobin 16.2 g/dL (13.0-16.5); Lymphocyte # 2.16 X10^3/ul (0.83-4.51); Lymphocyte % 23.6 % (19-41); Mean Corp Hgb Conc 33.5 g/dL (32-36); Mean Corpuscular Volume 92.7 fL (80-94); Mean Platelet Vol. 10.9 fl (6.2-12.0); NRBC Flagged by Analyzer 0 % (0-5); Neutrophil # 5.58 X10^3/uL (2.7-7.7); Neutrophil % 60.8 % (47-70); Platelet Count 199 K/mm3 (150-450); RBC Distribution Width CV 14.3 % (11.6-14.6); RBC Distribution Width SD 48.9 fl (35.1-43.9); Red Blood Count 5.22 M/mm3 (4.6-6.2); White Blood Count 9.2 K/mm3 (4.4-11.0)
[2021-12-12 06:39] LABS: ALB/GLOB Ratio 1.1 RATIO (0.9-2.4); AST(SGOT) 27 U/L (15-37); Alanine Aminotransfer ALT/SGPT 31 U/L (16-61); Albumin, Serum 3.9 g/dL (3.2-5.0); Alkaline Phosphatase 95 U/L (45-117); Anion Gap 6 (5-15); BUN 20 mg/dL (7-18); BUN/Creat Ratio 18.3 RATIO (10-20); Calcium,Total 9.6 mg/dL (8.5-10.1); Chloride 103 mmol/L (98-107); Creatinine, Serum 1.09 mg/dL (0.70-1.30); EST Glomerular Filtration Rate 74 mL/min (>60); Est Glom Filt Rate - Afr Amer 90 mL/min (>60); Estimated Creatinine Clearance 75.67 ml/min; Globulin 3.5 g/dL (2.2-4.2); Glucose 140 mg/dL (74-106); Magnesium 2.2 mg/dL (1.6-2.6); Phosphorus 3.6 mg/dL (2.5-4.9); Protein, Total 7.4 g/dL (6.4-8.2); Sodium Level 139 mmol/L (136-145)
[2021-12-12] MEDS: Spironolactone 25 MG Tablet PO (07:54)
[2021-12-12] MEDS: Metoprolol Tartrate 100 MG Tablet PO ×2 (07:54→23:05)
[2021-12-12] MEDS: APIXABAN 5 MG TABLET PO ×2 (07:54→23:05)
[2021-12-12] MEDS: Aspirin E.C. 81 MG Tablet PO (07:54)
[2021-12-12] MEDS: Furosemide 40 MG/4 ML Vial IV ×2 (07:55→17:08)
--- NOTE | 2021-12-12 12:39 | PCM.CONS.C ---
Assessment & Plan Assessment/Plan (1) Atrial fibrillation with rapid ventricular response: PLAN: The patient has findings of atrial fibrillation. There has been attempt at managing his rate medically to obtain reasonable rate control and avoid significant bradycardia or tachycardia to allow him to have anticoagulant therapy for an appropriate period of time prior to proceeding with attempts at synchronized biphasic DC cardioversion. His medications will be reviewed with the aforementioned consideration. If over time the patient cannot be managed medically then he may need to be considered for an accelerated approach such as a JOSE ALBERTO guided synchronized biphasic DC cardioversion. Over time depending upon how challenging his atrial dysrhythmia is he may need further input from electrophysiology. (2) CHF (congestive heart failure): PLAN: The patient has had findings of CHF with preserved ejection fraction. This may be secondary to his atrial dysrhythmia superimposed upon his other cardiovascular conditions. He has been treated medically with some improvement in his volume status. He will continue medical therapy (3) Atherosclerotic heart disease of [place] coronary artery without angina pectoris: QUALIFIERS: [place] vs. transplanted heart: [place] heart Qualified Code(s): I25.10 - Atherosclerotic heart disease of [place] coronary artery without angina pectoris PLAN: The patient does have a history of CAD. At the moment he does not appear to be experiencing ongoing symptoms with respect to acute coronary syndrome. He will need to continue risk factor modification medical therapy. (4) History of coronary artery stent placement: PLAN: The patient has a history of underlying CAD status post PCI and CABG. His revascularization procedures have been noted. He will continue medical therapy. (5) H/O coronary artery bypass surgery: PLAN: Again he has been. His most recent invasive studies documenting his coronary and graft anatomy are noted. At the present time he will continue medical therapy. (6) HLD (hyperlipidemia): QUALIFIERS: Hyperlipidemia type: unspecified Qualified Code(s): E78.5 - Hyperlipidemia, unspecified PLAN: He should continue risk factor evaluation and care. (7) Essential hypertension: PLAN: His blood pressure will need to be monitored with adjustment of medicines as deemed appropriate. HPI Consult Data Date of Consult: 12/12/21 HPI Narrative HPI Narrative: BHARAT HOLLY, is a 56 year old white male who presents for cardiovascular consultation based upon concerns of atrial fibrillation as well as CHF superimposed upon a history of underlying CAD, PCI, CABG, hyperlipidemia, hypertension, and ALICIA. He states he has been noting progressive flutters in his chest as well as progressive shortness of breath/dyspnea, the sensation of abdominal distention, and the development of marked lower extremity peripheral pitting edema. He states he was in contact with his physician team and was instructed to adjust his medications, however, based upon progressive symptoms and findings he presented to the [facility] emergency department on 12-10-2021 for further evaluation. He was brought into the hospital for concerns of his atrial dysrhythmia and concerns of CHF . Since being in the hospital he has had medications adjusted with respect to his rate control which has resulted in findings of both bradycardia as well as continued evidence of intermittent tachycardia. He states with his medication adjustment he has noted overall improvement with respect to his breathing, his abdominal distention feeling, and his lower extremity edema although his lower extremity edema is not absent. During this time he has not noted any ongoing chest discomfort other than that noted above associated with his flutters and his dyspnea sensation. He states at home he did have symptoms compatible with orthopnea which have improved. He does not recall any evidence of near-syncope or syncope. Since being in the hospital he has had high-sensitivity troponin I levels performed. They were negative. He has also undergone evaluation with an ECG that demonstrated atrial fibrillation with nonspecific ST and T wave abnormality. He underwent evaluation with a transthoracic echocardiogram. The results are noted below. [facility] Medical History Atherosclerotic heart disease of [place] coronary artery without angina pectoris Atrial fibrillation Essential hypertension HLD (hyperlipidemia) ALICIA treated with BiPAP Palpitations Home Medications aspirin 81 mg tablet,delayed release (Adult [facility]) [facility] [History Last Taken 12/10/21] hydrocodone-acetaminophen 5-325mg 5mg-325mg 0.5 tab PO DAILY PRN Pain 09/08/20 [History Last Taken 12/09/21] metoprolol tartrate 50 mg tablet 100 mg PO BID bp 11/26/21 [History Last Taken 12/10/21] apixaban 5 mg tablet (Eliquis) 5 mg PO BID blood thinner 12/10/21 [History Last Taken 12/10/21] diltiazem HCl 120 mg capsule,extended release 24 hr 120 mg PO DAILY heart 12/10/21 [History Last Taken 12/09/21] furosemide 40 mg tablet (Lasix) 40 mg PO BID water retention 12/10/21 [History Last Taken 12/09/21] simvastatin 40 mg tablet 40 mg PO QPM cholesterol 12/10/21 [History Last Taken 12/09/21] Allergy/AdvReac Type Severity Reaction Status Date / Time No Known Allergies Allergy Verified 12/10/21 09:12 Family History Father CAD (coronary artery disease) Diabetes Cancer Mother Diabetes Brother brain aneurysm rupture Surgical History H/O coronary artery bypass surgery (12/02/08) History of arthroscopy of left shoulder (03/2017) History of coronary artery stent placement (10/26/18) History of left heart catheterization (LHC) (10/26/18) History of tonsillectomy Social History household members: spouse housing: house current occupational status: employed 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 Smoking Status: Never smoker alcohol intake: current alcohol intake frequency: a few times a month substance use type: does not use caffeine: Yes Type: carbonated beverages Number of servings: 5 and coffee Number of servings: 1 what type of physical activity do you participate in: none do you feel safe at home: Yes ROS Constitutional Constitutional: Reports as per HPI Eyes Eyes: Reports as per HPI ENT HEENT: Reports as per HPI Cardiovascular Cardiovascular: Reports dyspnea, edema, flutter in chest, leg edema, orthopnea and palpitations Respiratory/Chest Respiratory/Chest: Reports dyspnea Gastrointestinal Gastrointestinal: Reports as per HPI Genitourinary Genitourinary: Reports as per HPI Musculoskeletal Musculoskeletal: Reports as per HPI Integumentary Integumentary: Reports as per HPI Neurologic Neurologic: Reports as per HPI Physical Exam Const alert, oriented x3 and no apparent distress Orientation / Consciousness: awake HEENT normocephalic, head/scalp atraumatic and hearing grossly normal bilaterally Eyes PERRL, EOMs intact bilaterally, conjunctivae normal and no scleral icterus Neck full ROM, supple and no JVD Carotids: normal carotid upstroke Chest Chest: midline sternotomy incision Resp normal respiratory effort Auscultation: diminished lung sounds bilateral lower Cardio Rhythm: abnormal rhythm irregularly irregular Heart Sounds: S1 normal and S2 normal GI normal to inspection, nondistended, normoactive bowel sounds Extremity General Extremity: edema bilateral lower extremity Details: moderate Skin no rashes or lesions noted Psych mental status grossly normal Risk Stratification Risk Stratification Applicable: No Procedure Criteria Type of Procedure Procedure Type: Elective Elective Risks - COVID COVID Risk Discussion: The surgeon/proceduralist and patient have discussed in detail the risk of exposure to and/or potential harm posed by the COVID-19 virus with having a surgery/procedure at this time versus the risk of delaying the surgery/procedure. It is not possible to know either the risk of delaying the surgery or procedure or chance of getting an infection with perfect accuracy, but a joint decision was made between the patient and the surgeon/proceduralist to proceed at this time with the scheduled surgery/procedure as indicated on the consent form. Objective Data Vital Signs: Vital Signs Temp Pulse Resp BP Pulse Ox O2 Del Method O2 Flow Rate 98.3 F 101 H 16 128/80 H 96 Room Air 2 12/12/21 12:09 12/12/21 12:09 12/12/21 12:09 12/12/21 12:09 12/12/21 12:09 12/12/21 12:09 12/12/21 03:00 FiO2 21 12/11/21 07:10 Oxygen Flow Rate (L/min) 2 Oxygen Delivery Method Room Air Weight: 248 lb 7.375 oz Body Mass Index (BMI) 37.0 Intake & Output: Intake and Output for Last 24 Hours 12/10/21 12/11/21 12/12/21 23:59 23:59 23:59 Intake Total 277.75 / 517.75 1524.00 / 1924.00 880 / 880 Output Total 3050 / 3050 Balance 277.75 / -332.25 -1526.00 / -1126.00 880 / 880 Lab / Micro Data Result Diagrams: 12/12/21 05:23 12/12/21 05:23 Labs: Laboratory Results - last 24 hr 12/11/21 04:11: B-Natriuretic Peptide 189.6 H 12/12/21 05:23: WBC 9.2, RBC 5.22, Hgb 16.2, Hct 48.4, MCV 92.7, MCH 31.0, MCHC 33.5, RDW Std Deviation 48.9 H, RDW Coeff of Ashwini 14.3, Plt Count 199, MPV 10.9, Immature Gran % (Auto) 0.200, Neut % (Auto) 60.8, Lymph % (Auto) 23.6, [place] % (Auto) 12.0 H, Eos % (Auto) 2.4, Baso % (Auto) 1.0, Absolute Neuts (auto) 5.6, Absolute Lymphs (auto) 2.16, Nucleated RBC % 0 12/12/21 05:23: Sodium 139, Potassium 4.0, Chloride 103, Carbon Dioxide 30.0, Anion Gap 6, BUN 20 H, Creatinine 1.09, Estim Creat Clear Calc 75.67, Est GFR (MDRD) Af Amer 90, Est GFR (MDRD) Non-Af 74, BUN/Creatinine Ratio 18.3, Glucose 140 H, Calcium 9.6, Phosphorus 3.6, Magnesium 2.2, Total Bilirubin 1.10 H, AST 27, ALT 31, Alkaline Phosphatase 95, Total Protein 7.4, Albumin 3.9, Globulin 3.5, Albumin/Globulin Ratio 1.1 Cardiology Labs/Tests 12/11/21 04:11: B-Natriuretic Peptide 189.6 H 12/12/21 05:23: WBC 9.2, RBC 5.22, Hgb 16.2, Hct 48.4, MCV 92.7, MCH 31.0, MCHC 33.5, Plt Count 199, MPV 10.9, Immature Gran % (Auto) 0.200, Neut % (Auto) 60.8, Lymph % (Auto) 23.6, [place] % (Auto) 12.0 H, Eos % (Auto) 2.4, Baso % (Auto) 1.0, Absolute Neuts (auto) 5.6, Nucleated RBC % 0 12/12/21 05:23: Sodium 139, Potassium 4.0, Chloride 103, Carbon Dioxide 30.0, Anion Gap 6, BUN 20 H, Creatinine 1.09, Est GFR (MDRD) Af Amer 90, Est GFR (MDRD) Non-Af 74, BUN/Creatinine Ratio 18.3, Glucose 140 H, Calcium 9.6, Phosphorus 3.6, Magnesium 2.2, Total Bilirubin 1.10 H Rhythm: Atrial fibrillation EKG: As noted above ECHO: 12-10-2021 Interpretation Summary The study was technically difficult. Contrast injection was performed. ? Segmental dysfunction with preserved ejection fraction (see wall motion). The estimated ejection fraction is 55 %. The left atrium is moderately enlarged. There is mild mitral annular calcification. Mild focal mitral valve calcification of the anterior leaflet. Trivial mitral valve insufficiency. Mild tricuspid valve insufficiency. The aortic valve leaflets are not well visualized, however, there appears to be moderate focal thickening present. Unable to estimate RV systolic pressure/pulmonary artery pressure due to technically difficult study. Unable to assess diastolic dysfunction. Stress Test: 04-19-2021 Stress Test Report Exercise cardial perfusion stress test. 55-year-old man with a history of abnormal echocardiogram. Medications aspirin clopidogrel simvastatin metoprolol. Myocardial perfusion protocol. Resting EKG demonstrates sinus bradycardia with a rate of 56 bpm normal intervals are noted T wave inversions are noted in leads II, III and aVF.? Resting blood pressure is 142/94 mmHg.? The patient exercised for total duration of 4 minutes and 30 seconds.? The maximum heart rate attained 144 bpm which was 87% of maximum predicted heart rate the maximum workload was 7 metabolic equivalents.? At rest there were no ST changes noted to suggest ischemia T wave inversions were noted at peak exercise premature ventricular complexes were noted with occasional bigeminy and occasional trigeminy.? This was also noted during recovery.? T wave inversions were noted in the inferior leads in the lateral leads with no ST changes noted to suggest ischemia.? The patient was noted to be short of breath with exertion and ectopy.? The peak blood pressure is 170/100 mmHg.? No chest pain was noted. Myocardial perfusion protocol. 14.5 mCi of technetium 99m sestamibi was injected at rest.? Patient exercised according to regular Johan protocol for 4-1/2 minutes and at peak exercise 44.7 mCi of technetium 99m sestamibi was injected stress images were obtained stress and rest images were reconstructed and compared in the short axis vertical long and horizontal long axis.? Gated images were also obtained. Perfusion SPECT analysis: Review of the stress images demonstrate normal uptake of tracer noted in all areas of the myocardium.? The resting images similarly demonstrate normal uptake of tracer noted in all areas of the myocardium.? No obvious areas of reversibility are noted to suggest ischemia and no previous infarct is noted. Gated SPECT analysis: The gated ejection fraction is 55%. Conclusion: Normal exercise myocardial perfusion stress test at a moderate workload. Preserved ejection fraction. Ventricular ectopy noted. Cardiac Cath: 10-26-2018 CONCLUSIONS Severe grafty vessel disease involving LCX and PDA RECOMMENDATIONS Referred for immediate PCI DESCRIPTION OF? PROCEDURE The patient arrived to the procedure lab. The risks and benefits of the procedure as well as a full description of our services here and current unavailability of surgical backup were fully explained to the patient and/or their significant other prior to the catheterization. The Timeout was completed, verifying the correct patient and procedure. The patient's procedural site was prepped and draped in the usual fashion. Local anesthetic was given subcutaneously to right groin region with Lidocaine 2%. Using a modified Seldinger technique, arterial access was obtained via the right femoral artery, a 5Fr sheath was inserted.? Left Coronary Artery selective angiography was performed in multiple views using a 5 Fr. JL4 catheter. Right Coronary Artery selective angiography was then performed in multiple views using a 5 Fr. 3DRC (Alfredo) catheter. Saphenous Vein graft to the Circumflex- sequential graft to PDA selective angiography was performed in multiple views using a 5 Fr. 3DRC (Alfredo) catheter. Left internal mammary artery graft to the LAD selective angiography was performed in multiple views using a 5 Fr. 3DRC (Alfredo) catheter. Left Ventriculography was performed in QUINN projection using a 5 Fr. Pigtail catheter. LV to AO pullback pressures were then recorded.The arterial sheath was sutured in place and capped CORONARY ANGIOGRAPHY DOMINANCE:? Left Dominant LEFT HEART ASSESSMENT Left Ventricular Ejection Fraction: by LV Gram 65 % Normal LV wall motion Normal Left Ventricular systolic function LEFT MAIN: Angiographically normal LEFT ANTERIOR DESCENDING ARTERY: PROX LAD: is occluded CIRCUMFLEX ARTERY: OM 1: Proximal - 90 % Stenosis RIGHT CORONARY ARTERY: No significant disease noted GRAFTS: ?SHEIKH graft to the Mid LAD is patent Sequential graft to the Lcx and PDA with anastomotic 75 % stenosis and distal anastomotic 80% in PDA PCI: 10-26-2018 CONCLUSIONS Successful PCI with Drug eluting stent and PTCA to the OM2 and SVG to OM2 RECOMMENDATIONS ASA Indefinitley Plavix for at least 12 months Follow up with primary netsuite developer DESCRIPTION OF? PROCEDURE The patient arrived to the procedure lab. The risks and benefits of the procedure as well as a full description of our services here and current unavailability of surgical backup were fully explained to the patient and/or their significant other prior to the catheterization. The Timeout was completed, verifying the correct patient and procedure. The patient's procedural site was prepped and draped in the usual fashion. Local anesthetic was given subcutaneously to right groin region with Lidocaine 2% Using a modified Seldinger technique,arterial access was obtained via the right femoral artery, a 5Fr sheath was inserted. Left Coronary Artery selective angiography was performed in multiple views using a 5 Fr. JL4 catheter. Right Coronary Artery selective angiography was then performed in multiple views using a 5 Fr. 3DRC (Alfredo) catheter. Saphenous Vein graft to the Circumflex- sequential graft to PDA selective angiography was performed in multiple views using a 5 Fr. 3DRC (Alfredo) catheter. Left internal mammary artery graft to the LAD selective angiography was performed in multiple views using a 5 Fr. 3DRC (Alfredo) catheter. Left Ventriculography was performed in QUINN projection using a 5 Fr. Pigtail catheter. LV to AO pullback pressures were then recorded.The images were reviewed and options discussed. A decision was then made to proceed with an Intervention, IVUS or other adjunct procedure. ? ? Arterial sheath was exchanged for a 6 Fr Sheath. JR 4 Guide catheter was inserted and engaged into the SVG to the OM 2. BMW Guide wire was advanced to the 2nd OM. Emerge 2.00x12 Balloon catheter was inserted. PTCA balloon inflated at 10 atms for 13 secs. Angiogram performed post balloon dilatation. Synergy 2.50x16 Drug Eluting stent was inserted. Angiogram performed post stent deployment. Synergy 4.00x12 Drug Eluting stent was inserted. Angiogram performed post stent deployment. ? The arterial sheath was sutured in place and capped INTERVENTION INFORMATION LESION SITE: 2nd OM (Distal) Vein > to 2nd OM Segment Number: 21-Second obtuse marginal branch segment - 2nd OM , Lesion Location: Not in Graft > [place] vessel (distal) Lesion Complexity: High/C, chronic total occlusion: No, lesion at bifurcation: No, thrombus present: No, lesion length: 12 mm, culprit lesion: No, Previously treated lesion: No ?Pre Stenosis: 80 % Pre intervention HOLA flow: 3 PROCEDURE: Drug Eluting Stent with pre dilatation. Post Stenosis: 0 %? Post intervention HOLA flow: 3 Lesion Devices: [place] .014 BMW [place] Straight 190cm Freevertronic 6 Fr JR4.0 100cm Guide Catheter [employer] MR KAREN 2.50x16 LESION SITE:? Vein > to 2nd OM Segment Number: 21-Second obtuse marginal branch segment - 2nd OM , Lesion Location: Body Lesion Complexity: High/C, chronic total occlusion: No, lesion at bifurcation: No, thrombus present: No, lesion length: 12 mm, culprit lesion: Yes, Previously treated lesion: No, culprit lesion: Yes, Previously treated lesion: No, In-stent restenosis: No ?Pre Stenosis: 80 %? Pre intervention HOLA flow: 3 PROCEDURE: Drug Eluting Stent Post Stenosis: 0 %? Post intervention HOLA flow: 3 Lesion Devices: [place] .014 [employer] [place] Straight 190cm Medtronic 6 Fr JR4.0 100cm Guide Catheter [employer] Synergy MR KAREN 4.00x12 Radiography Diagnostic Testing: Radiology Impression Venous Doppler Study 12/10/21 09:39 Interpretation Summary Deep veins of the left lower extremity are patent and compressible segmentally. There is no evidence of left lower extremity deep vein thrombosis. The left greater saphenous vein is surgically absent Deep veins of the right lower extremity are patent and compressible segmentally. There is no evidence of right lower extremity deep vein thrombosis. The right great saphenous vein appears patent and compressible segmentally. Ordering Physician: Santiago Roblero Referring Physician: MD Cliff Bharat Performed By: Marisa Kumar RVT
--- NOTE | 2021-12-12 12:49 | PCM.PN.HOSP ---
Subjective Subjective Follow-up on A. christopher with RVR/acute exacerbation of heart failure preserved EF: Patient was seen and examined.? Patient had episodes of bradycardia and tachycardia yesterday. He has shortness of breath with bradycardia. Denied any dizziness or chest pain. Objective Data Objective Data Vital Signs: Vital Signs Temp Pulse Resp BP Pulse Ox O2 Del Method O2 Flow Rate 98.3 F 101 H 16 128/80 H 96 Room Air 2 12/12/21 12:09 12/12/21 12:09 12/12/21 12:09 12/12/21 12:09 12/12/21 12:09 12/12/21 12:09 12/12/21 03:00 FiO2 21 12/11/21 07:10 Oxygen Flow Rate (L/min) 2 Oxygen Delivery Method Room Air Weight: 112.7 kg Body Mass Index (BMI) 37.0 Intake & Output: Intake and Output for Last 24 Hours 12/10/21 12/11/21 12/12/21 23:59 23:59 23:59 Intake Total 277.75 / 517.75 1524.00 / 1924.00 880 / 880 Output Total 3050 / 3050 Balance 277.75 / -332.25 -1526.00 / -1126.00 880 / 880 Lab / Micro Data Result Diagrams: 12/12/21 05:23 12/12/21 05:23 Labs: Laboratory Results - last 24 hr 12/11/21 04:11: B-Natriuretic Peptide 189.6 H 12/12/21 05:23: WBC 9.2, RBC 5.22, Hgb 16.2, Hct 48.4, MCV 92.7, MCH 31.0, MCHC 33.5, RDW Std Deviation 48.9 H, RDW Coeff of Ashwini 14.3, Plt Count 199, MPV 10.9, Immature Gran % (Auto) 0.200, Neut % (Auto) 60.8, Lymph % (Auto) 23.6, [place] % (Auto) 12.0 H, Eos % (Auto) 2.4, Baso % (Auto) 1.0, Absolute Neuts (auto) 5.6, Absolute Lymphs (auto) 2.16, Nucleated RBC % 0 12/12/21 05:23: Sodium 139, Potassium 4.0, Chloride 103, Carbon Dioxide 30.0, Anion Gap 6, BUN 20 H, Creatinine 1.09, Estim Creat Clear Calc 75.67, Est GFR (MDRD) Af Amer 90, Est GFR (MDRD) Non-Af 74, BUN/Creatinine Ratio 18.3, Glucose 140 H, Calcium 9.6, Phosphorus 3.6, Magnesium 2.2, Total Bilirubin 1.10 H, AST 27, ALT 31, Alkaline Phosphatase 95, Total Protein 7.4, Albumin 3.9, Globulin 3.5, Albumin/Globulin Ratio 1.1 Micro: Microbiology 12/10/21 09:53 Nasal Secretion SARS-CoV-2 Antigen (Rapid) - Final Radiography Diagnostic Testing: Radiology Impression Venous Doppler Study 12/10/21 09:39 Interpretation Summary Deep veins of the left lower extremity are patent and compressible segmentally. There is no evidence of left lower extremity deep vein thrombosis. The left greater saphenous vein is surgically absent Deep veins of the right lower extremity are patent and compressible segmentally. There is no evidence of right lower extremity deep vein thrombosis. The right great saphenous vein appears patent and compressible segmentally. Ordering Physician: Santiago Roblero Referring Physician: MD Cliff Philip Performed By: Marisa Kumar RVT Physical Exam Narrative Physical exam: General: Alert, Oriented x3, Cooperative, on 2L oxygen HEENT: Atraumatic Oral: Moist Mucosa Neck: Supple Lungs: Diminished to auscultation Cardiovascular: HS I+II, regular, no murmurs Abdomen: Bowel Sounds Present, Soft, Non Tender Extremities: Bilateral edema+1-2 Skin: No rashes, No breakdown Neurological: Grossly intact Psych/Mental Status: Appropriate Assessment & Plan Assessment/Plan (1) New onset atrial fibrillation: (2) Acute on chronic heart failure with preserved ejection fraction (HFpEF): PLAN: Plan 1. A fib with RVR, newly diagnosed, remains in RVR Continue metoprolol, cardizem and Eliquis 2. Acute on chronic HFpEF, improving, continue on Lasix IV BID 3. Hypokalemia, replaced 4. CAD s/p CABG,s/p stent/PCI 2D echo in this admission showed an EF of 55% Continue on aspirin, statin 5. ALICIA on BiPAP, 6. Hypertension, controlled, continue metoprolol for now 7. DVT prophylaxis?on Eliquis Charges/Coding Visit Charges Inpatient E&M: 29641 Subs Hosp L2
[2021-12-12] MEDS: Digoxin 250 MCG/ML Ampul 500 MCG IV (13:04)
[2021-12-12] MEDS: Amiodarone 360 MG in Dextrose 5% Viaflo Bag 192.8 ML 33.3 MG CONT INF (15:32)
[2021-12-12] MEDS: Digoxin 250 MCG/ML Ampul IV (17:51)
[2021-12-12] MEDS: dilTIAZem 25 MG/5 ML Vial 20 MG IV BOLUS (20:27)
[2021-12-12] MEDS: Amiodarone 360 MG in Dextrose 5% Viaflo Bag 192.8 ML 16.7 MG CONT INF (23:00)
[2021-12-12] MEDS: Atorvastatin Calcium 40 MG Tablet PO (23:05)
[2021-12-13] VITALS (34 sets, daily range): BP systolic 99–151; BP diastolic 46–130; PULSE 66–132; RESP 16–37; TEMP 36.5–36.7; O2SAT 91–99
[2021-12-13 08:54] LABS: AST(SGOT) 32 U/L (15-37); Alanine Aminotransfer ALT/SGPT 34 U/L (16-61); Albumin, Serum 3.6 g/dL (3.2-5.0); Alkaline Phosphatase 102 U/L (45-117); Anion Gap 7 (5-15); BUN 19 mg/dL (7-18); BUN/Creat Ratio 18.6 RATIO (10-20); Calcium,Total 9.3 mg/dL (8.5-10.1); Chloride 103 mmol/L (98-107); Creatinine, Serum 1.02 mg/dL (0.70-1.30); EST Glomerular Filtration Rate 80 mL/min (>60); Est Glom Filt Rate - Afr Amer 97 mL/min (>60); Estimated Creatinine Clearance 80.87 ml/min; Globulin 3.7 g/dL (2.2-4.2); Glucose 135 mg/dL (74-106); Magnesium 1.8 mg/dL (1.6-2.6); Protein, Total 7.3 g/dL (6.4-8.2); Sodium Level 138 mmol/L (136-145)
[2021-12-13] MEDS: Aspirin E.C. 81 MG Tablet PO (10:07)
[2021-12-13] MEDS: Metoprolol Tartrate 100 MG Tablet PO ×2 (10:07→21:26)
[2021-12-13] MEDS: APIXABAN 5 MG TABLET PO ×2 (10:07→21:26)
[2021-12-13] MEDS: Spironolactone 25 MG Tablet PO (10:08)
[2021-12-13] MEDS: Furosemide 40 MG/4 ML Vial IV ×2 (10:08→17:12)
[2021-12-13] MEDS: Amiodarone 360 MG in Dextrose 5% Viaflo Bag 192.8 ML 16.7 MG CONT INF ×2 (11:09→23:08)
--- NOTE | 2021-12-13 11:30 | PN.CARD_ITS ---
Subjective Subjective The patient denies ongoing chest discomfort. He believes his breathing has improved overall. He still remains with lower extremity peripheral pitting edema which is improved but not absent. Objective Data Vital Signs: Vital Signs Temp Pulse Resp BP Pulse Ox O2 Del Method O2 Flow Rate 97.9 F 105 H 20 H 110/71 94 Room Air 2 12/13/21 08:00 12/13/21 10:07 12/13/21 08:00 12/13/21 10:07 12/13/21 08:00 12/13/21 10:25 12/12/21 03:00 FiO2 21 12/11/21 07:10 Oxygen Flow Rate (L/min) 2 Oxygen Delivery Method Room Air Weight: 240 lb 8.389 oz Body Mass Index (BMI) 37.0 Intake & Output: Intake and Output for Last 24 Hours 12/11/21 12/12/21 12/13/21 23:59 23:59 23:59 Intake Total 1524.00 / 1924.00 1613.25 / 1618.25 334.50 / 334.50 Output Total 3050 / 3050 1025 / 1025 Balance -1526.00 / -1126.00 588.25 / 593.25 334.50 / 334.50 Lab / Micro Data Result Diagrams: 12/12/21 05:23 12/13/21 08:15 Labs: Laboratory Results - last 24 hr 12/13/21 08:15: Sodium 138, Potassium 4.0, Chloride 103, Carbon Dioxide 28.0, Anion Gap 7, BUN 19 H, Creatinine 1.02, Estim Creat Clear Calc 80.87, Est GFR (MDRD) Af Amer 97, Est GFR (MDRD) Non-Af 80, BUN/Creatinine Ratio 18.6, Glucose 135 H, Calcium 9.3, Magnesium 1.8, Total Bilirubin 1.00, AST 32, ALT 34, Alkalin e Phosphatase 102, Total Protein 7.3, Albumin 3.6, Globulin 3.7, Albumin/Globulin Ratio 1.0 Cardiology Labs/Tests 12/13/21 08:15: Sodium 138, Potassium 4.0, Chloride 103, Carbon Dioxide 28.0, Anion Gap 7, BUN 19 H, Creatinine 1.02, Est GFR (MDRD) Af Amer 97, Est GFR (MDRD) Non-Af 80, BUN/Creatinine Ratio 18.6, Glucose 135 H, Calcium 9.3, Magnesium 1.8, Total Bilirubin 1.00 Rhythm: Atrial fibrillation Physical Exam Const alert, oriented x3 and no apparent distress Orientation / Consciousness: awake HEENT normocephalic, head/scalp atraumatic and hearing grossly normal bilaterally Eyes PERRL, EOMs intact bilaterally, conjunctivae normal and no scleral icterus Neck full ROM, supple and no JVD Carotids: normal carotid upstroke Chest Chest: midline sternotomy incision Resp normal respiratory effort Auscultation: diminished lung sounds bilateral lower Cardio Rhythm: abnormal rhythm irregularly irregular Heart Sounds: S1 normal and S2 normal GI normal to inspection, nondistended, normoactive bowel sounds Extremity General Extremity: edema bilateral lower extremity Details: moderate Skin no rashes or lesions noted Psych mental status grossly normal Assessment & Plan Assessment/Plan (1) Atrial fibrillation with rapid ventricular response: PLAN: The patient has findings of atrial fibrillation. The patient has required additional medical therapy with IV medications including IV digitalis, IV diltiazem, and IV amiodarone in order to bring his cardiac rate under better control. He continues with his oral anticoagulant therapy. At the present time if he does not demonstrate continued slowing and/or conversion to sinus rhythm, then, based upon the difficulty in controlling his rate, it would be reasonable to proceed with a JOSE ALBERTO guided synchronized biphasic DC cardioversion in an attempt to regain sinus rhythm. This was discussed with the patient with respect to the procedure and risks. He was agreeable to this approach. This will be tentatively scheduled for tomorrow morning barring an unforeseen change in the interim. (2) CHF (congestive heart failure): PLAN: The patient has had findings of CHF with preserved ejection fraction. This may be secondary to his atrial dysrhythmia superimposed upon his other cardiovascular conditions. He has been treated medically with some improvement in his volume status. He will continue medical therapy (3) Atherosclerotic heart disease of [place] coronary artery without angina pectoris: QUALIFIERS: [place] vs. transplanted heart: [place] heart Qualified Code(s): I25.10 - Atherosclerotic heart disease of [place] coronary artery with out angina pectoris PLAN: The patient does have a history of CAD. At the moment he does not appear to be experiencing ongoing symptoms with respect to acute coronary syndrome. He will need to continue risk factor modification medical therapy. (4) History of coronary artery stent placement: PLAN: The patient has a history of underlying CAD status post PCI and CABG. His revascularization procedures have been noted. He will continue medical therapy. (5) H/O coronary artery bypass surgery: PLAN: Again he has been. His most recent invasive studies documenting his coronary and graft anatomy are noted. At the present time he will continue medical therapy. (6) HLD (hyperlipidemia): QUALIFIERS: Hyperlipidemia type: unspecified Qualified Code(s): E78.5 - Hyperlipidemia, unspecified PLAN: He should continue risk factor evaluation and care. (7) Essential hypertension: PLAN: His blood pressure will need to be monitored with adjustment of medicines as deemed appropriate. Addt'l Comments The patient's case was discussed and reviewed with the patient and Dr. Bucio. This note was generated using a voice recognition system and there may be in correct words, spelling or punctuation that were not noted when reviewing the office note prior to saving. Procedure Criteria Type of Procedure Procedure Type: Elective Elective Risks - COVID COVID Risk Discussion: The surgeon/proceduralist and patient have discussed in detail the risk of exposure to and/or potential harm posed by the COVID-19 virus with having a surgery/procedure at this time versus the risk of delaying the surgery/procedure. It is not possible to know either the risk of delaying the surgery or procedure or chance of getting an infection with perfect accuracy, but a joint decision was made between the patient and the surgeon/proceduralist to proceed at this time with the scheduled surgery/procedure as indicated on the consent form.
--- NOTE | 2021-12-13 12:23 | NURSING ---
New bag of amiodarone hung before charted vitals in JUN, unable to then chart them with the JUN. Put 0900 through 1100 vitals in the VSA.
--- NOTE | 2021-12-13 13:30 | PCM.PN.HOSP ---
Subjective Subjective Follow-up on A. christopher with RVR/acute exacerbation of heart failure preserved EF: Patient was seen and examined.? He remained tachycardic. Amiodarone and Cardizem drip was started. He otherwise feels stable. Denies any chest pain. Objective Data Objective Data Vital Signs: Vital Signs Temp Pulse Resp BP Pulse Ox O2 Del Method O2 Flow Rate 97.9 F 72 20 H 126/73 H 98 Room Air 2 12/13/21 12:00 12/13/21 12:00 12/13/21 12:00 12/13/21 12:00 12/13/21 11:01 12/13/21 12:28 12/12/21 03:00 FiO2 21 12/11/21 07:10 Oxygen Flow Rate (L/min) 2 Oxygen Delivery Method Room Air Weight: 109.1 kg Body Mass Index (BMI) 37.0 Intake & Output: Intake and Output for Last 24 Hours 12/11/21 12/12/21 12/13/21 23:59 23:59 23:59 Intake Total 1524.00 / 1924.00 1613.25 / 1618.25 818.75 / 818.75 Output Total 3050 / 3050 1025 / 1025 500 / 500 Balance -1526.00 / -1126.00 588.25 / 593.25 318.75 / 318.75 Lab / Micro Data Result Diagrams: 12/12/21 05:23 12/13/21 08:15 Labs: Laboratory Results - last 24 hr 12/13/21 08:15: Sodium 138, Potassium 4.0, Chloride 103, Carbon Dioxide 28.0, Anion Gap 7, BUN 19 H, Creatinine 1.02, Estim Creat Clear Calc 80.87, Est GFR (MDRD) Af Amer 97, Est GFR (MDRD) Non-Af 80, BUN/Creatinine Ratio 18.6, Glucose 135 H, Calcium 9.3, Magnesium 1.8, Total Bilirubin 1.00, AST 32, ALT 34, Alkaline Phosphatase 102, Total Protein 7.3, Albumin 3.6, Globulin 3.7, Albumin/Globulin Ratio 1.0 Micro: Microbiology 12/10/21 09:53 Nasal Secretion SARS-CoV-2 Antigen (Rapid) - Final Physical Exam Narrative Physical exam: General: Alert, Oriented x3, Cooperative, on 2L oxygen HEENT: Atraumatic Oral: Moist Mucosa Neck: Supple Lungs: Diminished to auscultation Cardiovascular: HS I+II, regular, no murmurs Abdomen: Bowel Sounds Present, Soft, Non Tender Extremities: Bilateral edema+1-2 Skin: No rashes, No breakdown Neurological: Grossly intact Psych/Mental Status: Appropriate Assessment & Plan Assessment/Plan (1) New onset atrial fibrillation: (2) Acute on chronic heart failure with preserved ejection fraction (HFpEF): PLAN: Plan 1. A fib with RVR, newly diagnosed, remains in RVR Telemetry shows A. fib with RVR with episodes of pauses Continue metoprolol, Cardizem drip, amiodarone drip as well as Eliquis Cardiology plans on cardioverting in a.m. 2. Acute on chronic HFpEF, improving, continue on Lasix IV BID 3. Hypokalemia, replaced 4. CAD s/p CABG,s/p stent/PCI 2D echo in this admission showed an EF of 55% Continue on aspirin, statin 5. ALICIA on BiPAP, 6. Hypertension, controlled, continue current meds for now 7. DVT prophylaxis?on Eliquis Charges/Coding Visit Charges Inpatient E&M: 90507 Subs Hosp L2
[2021-12-13] MEDS: 0.9% Saline Lock 10 ML Syringe IV (21:26)
[2021-12-13] MEDS: Atorvastatin Calcium 40 MG Tablet PO (21:26)
--- NOTE | 2021-12-13 22:22 | NURSING ---
2115: Pt up to bathroom, HR outside of cardizem parameters (120s to 150s) but dose not titrated up d/t HR coming down shortly after pt sitting back down in bed.
[2021-12-14] VITALS (19 sets, daily range): BP systolic 93–143; BP diastolic 60–98; PULSE 41–88; RESP 16–27; TEMP 35.9–36.8; O2SAT 95–99
--- NOTE | 2021-12-14 05:00 | EKG12_ITS ---
Test Reason : PRE CI Blood Pressure : / mmHG Vent. Rate : 071 BPM Atrial Rate : 000 BPM P-R Int : 000 ms QRS Dur : 096 ms QT Int : 408 ms P-R-T Axes : 000 076 248 degrees QTc Int : 443 ms Atrial fibrillation RSR' or QR pattern in V1 suggests right ventricular conduction delay ST & T wave abnormality, consider inferolateral ischemia Abnormal ECG When compared with ECG of 10-DEC-2021 09:20, Vent. rate has decreased BY 59 BPM Inverted T waves have replaced nonspecific T wave abnormality in Anterior leads Confirmed by ARUN ROJAS, SUSAN ([id number]), clinical editor MANUEL RIVERA ([id number]) on 12/14/2021 2:18:11 PM Referred By: Confirmed By:DERRELL DIAS MD
[2021-12-14 06:02] LABS: Absolute Lymphocyte Count 1.71 X10^3/uL (0.83-4.51); Absolute Neutrophil Count 6.1 X10^3/uL (2.0-7.7); Basophil# 0.06 X10^3/uL; Basophil% 0.6 % (0-1); Eosinophil# 0.33 X10^3/uL; Eosinophils% 3.5 % (0-5); Hemoglobin 16.6 g/dL (13.0-16.5); Lymphocyte # 1.71 X10^3/ul (0.83-4.51); Lymphocyte % 18.2 % (19-41); Mean Corp Hgb Conc 33.2 g/dL (32-36); Mean Corpuscular Hgb 30.5 pg (27.0-32.0); Mean Corpuscular Volume 91.9 fL (80-94); Mean Platelet Vol. 10.6 fl (6.2-12.0); Monocyte# 1.21 X10^3/uL; Monocyte% 12.9 % (0-10); NRBC Flagged by Analyzer 0 % (0-5); Neutrophil # 6.05 X10^3/uL (2.7-7.7); Neutrophil % 64.3 % (47-70); Platelet Count 194 K/mm3 (150-450); RBC Distribution Width CV 13.8 % (11.6-14.6); RBC Distribution Width SD 46.7 fl (35.1-43.9); Red Blood Count 5.44 M/mm3 (4.6-6.2); White Blood Count 9.4 K/mm3 (4.4-11.0)
[2021-12-14 06:45] LABS: AST(SGOT) 30 U/L (15-37); Alanine Aminotransfer ALT/SGPT 34 U/L (16-61); Albumin, Serum 3.7 g/dL (3.2-5.0); Alkaline Phosphatase 105 U/L (45-117); Anion Gap 5 (5-15); BUN 21 mg/dL (7-18); BUN/Creat Ratio 20.6 RATIO (10-20); Calcium,Total 9.6 mg/dL (8.5-10.1); Chloride 101 mmol/L (98-107); Creatinine, Serum 1.02 mg/dL (0.70-1.30); EST Glomerular Filtration Rate 80 mL/min (>60); Est Glom Filt Rate - Afr Amer 97 mL/min (>60); Estimated Creatinine Clearance 80.87 ml/min; Globulin 3.7 g/dL (2.2-4.2); Glucose 156 mg/dL (74-106); Potassium 3.9 mmol/L (3.5-5.1); Protein, Total 7.4 g/dL (6.4-8.2); Sodium Level 136 mmol/L (136-145)
--- NOTE | 2021-12-14 08:30 | ECHOTEE_ITS ---
Reason For Study: ATRIAL FIB-FLUTTER Medication Cetacaine Topical [place] given X3 Sprays orally. Versed 2 mg given slow IVP. Fentanyl 100 mcg given slow IVP. Performed a rapid injection of agitated mix of 9 cc saline and 1cc air to assess for atrial septal defect. Left Ventricle Normal LV size. Segmental dysfunction with preserved ejection fraction (see wall motion). The estimated ejection fraction is 55 %. Infero-Basal: Hypokinetic. Mid-Inferior: Hypokinetic. Mid- inferoseptal : Hypokinetic. Mid-anteroseptal : Hypokinetic. Right Ventricle Normal RV size. Normal systolic function. Atria No doppler evidence for ASD. Bubble contrast study negative for right to left interatrial shunt. The left atrium is moderately enlarged. There is mild sponatenous contrast in the left atrium. No thrombus is detected in the left atrial appendage. The right atrium is mildly enlarged. There is no sponatenous contrast in the right atrium. No RA/appendage thrombus appreciated. Mitral Valve There is mild mitral annular calcification. Normal mitral valve. Trivial mitral valve insufficiency. Tricuspid Valve Normal tricuspid valve. Mild tricuspid valve insufficiency. Aortic Valve Trisinus/trileaflet aortic valve. Mild focal aortic valve thickening. Pulmonic Valve The pulmonic valve is not well visualized. Vessels Mild atherosclerosis of the descending aorta. Pericardium No pericardial effusion. ECHO/Echo Transesophageal (JOSE ALBERTO) Interpretation Summary Segmental dysfunction with preserved ejection fraction (see wall motion). The estimated ejection fraction is 55 %. The left atrium is moderately enlarged. There is mild sponatenous contrast in the left atrium. No thrombus is detected in the left atrial appendage. The right atrium is mildly enlarged. There is mild mitral annular calcification. Trivial mitral valve insufficiency. Mild tricuspid valve insufficiency. Mild focal aortic valve thickening. Bubble contrast study negative for right to left interatrial shunt. Mild atherosclerosis of the descending aorta. Ordering Physician: Thomas Cunningham Referring Physician: MD Philip Coronado Performed By: Anjali Coon RDCS, RVT
--- NOTE | 2021-12-14 09:08 | EKG12_ITS ---
Test Reason : POST CARIDOVERSION Blood Pressure : / mmHG Vent. Rate : 046 BPM Atrial Rate : 046 BPM P-R Int : 174 ms QRS Dur : 094 ms QT Int : 494 ms P-R-T Axes : 096 079 210 degrees QTc Int : 432 ms Sinus bradycardia T wave abnormality, consider inferior ischemia T wave abnormality, consider anterolateral ischemia Abnormal ECG When compared with ECG of 14-DEC-2021 05:31, MANUAL COMPARISON REQUIRED, DATA IS UNCONFIRMED Confirmed by ARUN ROJAS, SUSAN ([id number]), editor at large MANUEL RIVERA ([id number]) on 12/18/2021 9:25:37 AM Referred By: Confirmed By:DERRELL DIAS MD
--- NOTE | 2021-12-14 09:10 | PCM.PN.CARD ---
Subjective Subjective The patient has now undergone JOSE ALBERTO guided synchronized biphasic DC cardioversion. He regained sinus bradycardia/junctional rhythm with PSVC's. He appears to be awake and alert with no obvious adverse complaints. Objective Data Vital Signs: Vital Signs Temp Pulse Resp BP Pulse Ox O2 Del Method O2 Flow Rate 96.7 F L 73 27 H 121/64 H 95 Room Air 2 12/14/21 04:00 12/14/21 07:01 12/14/21 07:00 12/14/21 07:00 12/14/21 07:00 12/14/21 07:00 12/14/21 06:00 FiO2 21 12/11/21 07:10 Oxygen Flow Rate (L/min) 2 Oxygen Delivery Method Room Air Weight: 235 lb 0.204 oz Body Mass Index (BMI) 37.0 Intake & Output: Intake and Output for Last 24 Hours 12/12/21 12/13/21 12/14/21 23:59 23:59 23:59 Intake Total 1613.25 / 1618.25 1587.50 / 1851.97 451.37 / 451.37 Output Total 1025 / 1025 1100 / 1800 700 / 700 Balance 588.25 / 593.25 487.50 / 51.97 -248.63 / -248.63 Lab / Micro Data Result Diagrams: 12/14/21 05:37 12/14/21 05:37 Labs: Laboratory Results - last 24 hr 12/14/21 05:37: WBC 9.4, RBC 5.44, Hgb 16.6 H, Hct 50.0, MCV 91.9, MCH 30.5, MCHC 33.2, RDW Std Deviation 46.7 H, RDW Coeff of Ashwini 13.8, Plt Count 194, MPV 10.6, Immature Gran % (Auto) 0.500, Neut % (Auto) 64.3, Lymph % (Auto) 18.2 L, [place] % (Auto) 12.9 H, Eos % (Auto) 3.5, Baso % (Auto) 0.6, Absolute Neuts (auto) 6.1, Absolute Lymphs (auto) 1.71, Nucleated RBC % 0 12/14/21 05:37: Sodium 136, Potassium 3.9, Chloride 101, Carbon Dioxide 30.0, Anion Gap 5, BUN 21 H, Creatinine 1.02, Estim Creat Clear Calc 80.87, Est GFR (MDRD) Af Amer 97, Est GFR (MDRD) Non-Af 80, BUN/Creatinine Ratio 20.6 H, Glucose 156 H, Calcium 9.6, Total Bilirubin 1.10 H, AST 30, ALT 34, Alkaline Phosphatase 105, Total Protein 7.4, Albumin 3.7, Globulin 3.7, Albumin/Globulin Ratio 1.0 Cardiology Labs/Tests 12/14/21 05:37: WBC 9.4, RBC 5.44, Hgb 16.6 H, Hct 50.0, MCV 91.9, MCH 30.5, MCHC 33.2, Plt Count 194, MPV 10.6, Immature Gran % (Auto) 0.500, Neut % (Auto) 64.3, Lymph % (Auto) 18.2 L, [place] % (Auto) 12.9 H, Eos % (Auto) 3.5, Baso % (Auto) 0.6, Absolute Neuts (auto) 6.1, Nucleated RBC % 0 12/14/21 05:37: Sodium 136, Potassium 3.9, Chloride 101, Carbon Dioxide 30.0, Anion Gap 5, BUN 21 H, Creatinine 1.02, Est GFR (MDRD) Af Amer 97, Est GFR (MDRD) Non-Af 80, BUN/Creatinine Ratio 20.6 H, Glucose 156 H, Calcium 9.6, Total Bilirubin 1.10 H Rhythm: Sinus bradycardia/junctional rhythm Physical Exam Const alert, oriented x3 and no apparent distress Orientation / Consciousness: awake HEENT normocephalic, head/scalp atraumatic and hearing grossly normal bilaterally Eyes PERRL, EOMs intact bilaterally, conjunctivae normal and no scleral icterus Neck full ROM, supple and no JVD Carotids: normal carotid upstroke Chest Chest: midline sternotomy incision Resp normal respiratory effort and clear to auscultation bilaterally Cardio Rate: regular rate and bradycardia Rhythm: abnormal rhythm ectopic beats Heart Sounds: S1 normal and S2 normal GI normal to inspection, nondistended, normoactive bowel sounds Extremity General Extremity: edema bilateral lower extremity Details: moderate Skin no rashes or lesions noted Psych mental status grossly normal Assessment & Plan Assessment/Plan (1) Atrial fibrillation with rapid ventricular response: PLAN: The patient has findings of atrial fibrillation. The patient has required additional medical therapy with IV medications including IV digitalis, IV diltiazem, and IV amiodarone in order to bring his cardiac rate under better control. He has now undergone JOSE ALBERTO guided synchronized biphasic DC cardioversion. He has regained sinus bradycardia/junctional rhythm. At the present time his rate limiting medications and IV antiarrhythmic medication will be placed on hold. His cardiac rate and rhythm will be followed and his medications adjusted accordingly. He will continue anticoagulant therapy. Over time he may need to be considered for electrophysiology evaluation based upon concerns of his bradycardia and tachycardia events with respect to the need for further EPS evaluation of his underlying conduction system/dysrhythmia and whether or not he requires not only medical therapy but possible pacemaker support for his bradycardia dysrhythmias and/or atrial fibrillation ablation and/or AV node ablation with pacemaker support if his other rhythm disturbances cannot be controlled otherwise. (2) CHF (congestive heart failure): PLAN: The patient has had findings of CHF with preserved ejection fraction. This may be secondary to his atrial dysrhythmia superimposed upon his other cardiovascular conditions. He has been treated medically with some improvement in his volume status. He will continue medical therapy (3) Atherosclerotic heart disease of [place] coronary artery without angina pectoris: QUALIFIERS: [place] vs. transplanted heart: [place] heart Qualified Code(s): I25.10 - Atherosclerotic heart disease of [place] coronary artery without angina pectoris PLAN: The patient does have a history of CAD. At the moment he does not appear to be experiencing ongoing symptoms with respect to acute coronary syndrome. He will need to continue risk factor modification medical therapy. (4) History of coronary artery stent placement: PLAN: The patient has a history of underlying CAD status post PCI and CABG. His revascularization procedures have been noted. He will continue medical therapy. (5) H/O coronary artery bypass surgery: PLAN: Again he has been. His most recent invasive studies documenting his coronary and graft anatomy are noted. At the present time he will continue medical therapy. (6) HLD (hyperlipidemia): QUALIFIERS: Hyperlipidemia type: unspecified Qualified Code(s): E78.5 - Hyperlipidemia, unspecified PLAN: He should continue risk factor evaluation and care. (7) Essential hypertension: PLAN: His blood pressure will need to be monitored with adjustment of medicines as deemed appropriate. Addt'l Comments The above has been discussed with the patient and with his family members present. This note was generated using a voice recognition system and there may be incorrect words, spelling or punctuation that were not noted when reviewing the office note prior to saving. Procedure Criteria Type of Procedure Procedure Type: Elective Elective Risks - COVID COVID Risk Discussion: The surgeon/proceduralist and patient have discussed in detail the risk of exposure to and/or potential harm posed by the COVID-19 virus with having a surgery/procedure at this time versus the risk of delaying the surgery/procedure. It is not possible to know either the risk of delaying the surgery or procedure or chance of getting an infection with perfect accuracy, but a joint decision was made between the patient and the surgeon/proceduralist to proceed at this time with the scheduled surgery/procedure as indicated on the consent form.
--- NOTE | 2021-12-14 10:00 | PRO.PCM_ITS ---
Procedure Report Date of Procedure: 12/14/21 CONSCIOUS SEDATION REPORT BRIEF HISTORY OF PRESENT ILLNESS: The patient is a 56-year-old male who presented to [facility] secondary to shortness of breath due to underlying atrial fibrillation. The patient reports no PO intake since midnight, but is currently therapeutic on anticoagulation. The patient does have a history of ALICIA and reportedly is compliant with therapy. The patient did have a JOSE ALBERTO just prior to cardioversion. Patient had received 2 mg of Versed and 100 mcg of fentanyl for this procedure. Patient was conversing prior to sedation. The patient denies any recent constitutional symptoms such as fevers, chills, nausea or vomiting. The patient denies previous applicable anesthetic complications. Patient's EF was noted to be 55% with no clots. PHYSICAL EXAMINATION: VITAL SIGNS: Reviewed and were acceptable. GENERAL: The patient is a male, in no apparent distress, speaking in full sentences. HEENT: Normocephalic, atraumatic. Mucous membranes are moist and pink. Good mouth opening noted. Trachea is midline. Good neck mobility. MP [IV] CHEST: S1, S2 irregularly irregular. No murmurs, rubs or gallops were noted. LUNGS: Clear to auscultation bilaterally without appreciable wheezes, rales or rhonchi. ABDOMEN: Soft, nontender, nondistended. Positive bowel sounds. EXTREMITIES: There is no clubbing, cyanosis or edema. ASA Class: II DESCRIPTION OF PROCEDURE: After confirmation of informed consent, the patient's anesthesia plan was reviewed in detail. [Propofol Etomidate] was chosen. Risks and benefits were reviewed and the patient agreed to proceed. At 8:43 AM, the patient was given [40 mg of propofol]. The patient achieved an appropriate level of sedation and received 1 attempt synchronized cardioversion, at [200 J respectively] by Dr. Cunningham at the bedside. This was [successful unsuccessful] in achieving nor mal sinus rhythm. The patient did have significant bradycardia following cardioversion with intermittent junctional rhythm. Patient was taken off of drips. The patient did require intermittent jaw thrust, but no significant hypoxia to account for bradycardia was noted. The patient was monitored until 9 AM, at which time the patient reached their baseline mental status and function. The patient tolerated the procedure well. COMPLICATIONS: None ESTIMATED BLOOD LOSS: None RECOMMENDATIONS: Okay to recover in usual fashion. Procedures Pulmonary 9xxxx: [id number] Con Sedation
[2021-12-14] MEDS: Spironolactone 25 MG Tablet PO (11:41)
[2021-12-14] MEDS: Aspirin E.C. 81 MG Tablet PO (11:41)
[2021-12-14] MEDS: APIXABAN 5 MG TABLET PO ×2 (11:41→21:23)
[2021-12-14] MEDS: Furosemide 40 MG/4 ML Vial IV ×2 (11:42→18:05)
[2021-12-14] MEDS: 0.9% Saline Lock 10 ML Syringe IV ×2 (11:43→18:06)
--- NOTE | 2021-12-14 11:56 | PCM.PN.HOSP ---
Subjective Subjective Follow-up on AKelley white with RVR/acute exacerbation of heart failure preserved EF: Patient was seen and examined.? Patient underwent cardioversion today. Heart rate is in sinus rhythm, slightly bradycardic. Patient stated that he felt improved. Denied any new complaints Objective Data Objective Data Vital Signs: Vital Signs Temp Pulse Resp BP Pulse Ox O2 Del Method O2 Flow Rate 97.8 F 53 L 17 131/69 H 96 Room Air 2 12/14/21 11:37 12/14/21 11:37 12/14/21 11:37 12/14/21 11:37 12/14/21 11:37 12/14/21 11:37 12/14/21 06:00 FiO2 21 12/11/21 07:10 Oxygen Flow Rate (L/min) 2 Oxygen Delivery Method Room Air Weight: 106.6 kg Body Mass Index (BMI) 37.0 Intake & Output: Intake and Output for Last 24 Hours 12/12/21 12/13/21 12/14/21 23:59 23:59 23:59 Intake Total 1613.25 / 1618.25 1587.50 / 1851.97 509.22 / 509.22 Output Total 1025 / 1025 1100 / 1800 700 / 700 Balance 588.25 / 593.25 487.50 / 51.97 -190.78 / -190.78 Lab / Micro Data Result Diagrams: 12/14/21 05:37 12/14/21 05:37 Labs: Laboratory Results - last 24 hr 12/14/21 05:37: WBC 9.4, RBC 5.44, Hgb 16.6 H, Hct 50.0, MCV 91.9, MCH 30.5, MCHC 33.2, RDW Std Deviation 46.7 H, RDW Coeff of Ashwini 13.8, Plt Count 194, MPV 10.6, Immature Gran % (Auto) 0.500, Neut % (Auto) 64.3, Lymph % (Auto) 18.2 L, Mcculloch % (Auto) 12.9 H, Eos % (Auto) 3.5, Baso % (Auto) 0.6, Absolute Neuts (auto) 6.1, Absolute Lymphs (auto) 1.71, Nucleated RBC % 0 12/14/21 05:37: Sodium 136, Potassium 3.9, Chloride 101, Carbon Dioxide 30.0, Anion Gap 5, BUN 21 H, Creatinine 1.02, Estim Creat Clear Calc 80.87, Est GFR (MDRD) Af Amer 97, Est GFR (MDRD) Non-Af 80, BUN/Creatinine Ratio 20.6 H, Glucose 156 H, Calcium 9.6, Total Bilirubin 1.10 H, AST 30, ALT 34, Alkaline Phosphatase 105, Total Protein 7.4, Albumin 3.7, Globulin 3.7, Albumin/Globulin Ratio 1.0 Micro: Microbiology 12/10/21 09:53 Nasal Secretion SARS-CoV-2 Antigen (Rapid) - Final Physical Exam Narrative Physical exam: General: Alert, Oriented x3, Cooperative, off oxygen HEENT: Atraumatic Oral: Moist Mucosa Neck: Supple Lungs: Diminished to auscultation Cardiovascular: HS I+II, regular, no murmurs Abdomen: Bowel Sounds Present, Soft, Non Tender Extremities: Bilateral edema+1-2 Skin: No rashes, No breakdown Neurological: Grossly intact Psych/Mental Status: Appropriate Assessment & Plan Assessment/Plan (1) New onset atrial fibrillation: (2) Acute on chronic heart failure with preserved ejection fraction (HFpEF): PLAN: Plan 1. A fib with RVR, newly diagnosed, status post cardioversion (12/14/21) Telemetry shows sinus bradycardic Continue to monitor off rate control medications Continue Eliquis 2. Acute on chronic HFpEF, improving, Continue on Lasix IV BID 3. Hypokalemia, replaced 4. CAD s/p CABG,s/p stent/PCI 2D echo in this admission showed an EF of 55% Continue on aspirin, statin 5. ALICIA on BiPAP, 6. Hypertension, controlled, continue current meds for now 7. DVT prophylaxis?on Eliquis Charges/Coding Visit Charges Inpatient E&M: 31883 Subs Hosp L2
--- NOTE | 2021-12-14 14:26 | CASEMGMT ---
Pt up independent in room and states no concerns with going home at time of discharge. SStjarod RN CM
[2021-12-14] MEDS: Atorvastatin Calcium 40 MG Tablet PO (21:23)
[2021-12-14] MEDS: Metoprolol Tartrate 25 MG Tablet PO (21:28)
[2021-12-15 03:36] VITALS: PULSE 60
[2021-12-15 04:00] VITALS: BP 120/61; PULSE 65; RESP 16; TEMP 36.6; O2SAT 98
[2021-12-15 06:58] LABS: Absolute Lymphocyte Count 1.73 X10^3/uL (0.83-4.51); Absolute Neutrophil Count 6.1 X10^3/uL (2.0-7.7); Basophil# 0.09 X10^3/uL; Basophil% 0.9 % (0-1); Eosinophils% 3.1 % (0-5); Hematocrit 47.3 % (40-54); Lymphocyte # 1.73 X10^3/ul (0.83-4.51); Lymphocyte % 17.8 % (19-41); Mean Corp Hgb Conc 33.8 g/dL (32-36); Mean Corpuscular Hgb 31.4 pg (27.0-32.0); Mean Corpuscular Volume 92.7 fL (80-94); Monocyte# 1.43 X10^3/uL; Monocyte% 14.7 % (0-10); NRBC Flagged by Analyzer 0 % (0-5); Neutrophil # 6.12 X10^3/uL (2.7-7.7); Neutrophil % 63.1 % (47-70); Platelet Count 187 K/mm3 (150-450); RBC Distribution Width CV 13.8 % (11.6-14.6); RBC Distribution Width SD 47.4 fl (35.1-43.9); White Blood Count 9.7 K/mm3 (4.4-11.0)
[2021-12-15 07:00] VITALS: PULSE 54
[2021-12-15 07:35] LABS: AST(SGOT) 29 U/L (15-37); Alanine Aminotransfer ALT/SGPT 35 U/L (16-61); Albumin, Serum 3.6 g/dL (3.2-5.0); Alkaline Phosphatase 103 U/L (45-117); Anion Gap 7 (5-15); BUN 21 mg/dL (7-18); BUN/Creat Ratio 19.3 RATIO (10-20); Calcium,Total 9.2 mg/dL (8.5-10.1); Chloride 98 mmol/L (98-107); Creatinine, Serum 1.09 mg/dL (0.70-1.30); EST Glomerular Filtration Rate 74 mL/min (>60); Est Glom Filt Rate - Afr Amer 90 mL/min (>60); Estimated Creatinine Clearance 75.67 ml/min; Globulin 3.7 g/dL (2.2-4.2); Glucose 147 mg/dL (74-106); Potassium 3.8 mmol/L (3.5-5.1); Protein, Total 7.3 g/dL (6.4-8.2); Sodium Level 137 mmol/L (136-145)
[2021-12-15 07:41] VITALS: O2SAT 98
[2021-12-15 09:52] VITALS: BP 141/79; PULSE 68; RESP 17; TEMP 36.6; O2SAT 98
[2021-12-15 09:56] VITALS: PULSE 66
[2021-12-15] MEDS: Metoprolol Tartrate 25 MG Tablet PO (09:56)
[2021-12-15] MEDS: Aspirin E.C. 81 MG Tablet PO (09:56)
[2021-12-15] MEDS: APIXABAN 5 MG TABLET PO (09:57)
[2021-12-15] MEDS: Furosemide 40 MG/4 ML Vial IV (09:57)
[2021-12-15] MEDS: Spironolactone 25 MG Tablet PO (09:57)
[2021-12-15] MEDS: 0.9% Saline Lock 10 ML Syringe IV (09:57)
--- NOTE | 2021-12-15 11:04 | PCM.DC ---
Discharge Instructions Diet Discharge Diet: Low fat / Low cholesterol Activity Discharge Activity: Return to Normal Activity Follow Up Care Test Results: Test results from this visit will be discussed in further detail at your follow-up appointment, if applicable. Discharge Plan Admission Admit Date/Time: 12/10/21 13:29 Primary Reason for Your Visit: Acute CVA Attending Provider: Brittney Bucio Primary Care Provider: Philip Coronado Consulting Providers: Hugo Medeiros ; Wilda Brady ; Areli David ; Robert Ruiz ; Sharif Conklin ; Mina Enriquez ; Ha Benson ; Nima Dewitt ; Lakisha Beckham ; Daron Sommer ; Patricia Curran ; Arturo Bloom ; Thomas Cunningham ; Colton De Jesus ; Charles Casillas ; Gregory Coon HAT BODY INSPECTOR ; Wilda Anderson HAT BODY INSPECTOR ; Rosaura De La O PA Instructions Additional Instructions / Restrictions: Continue to take your medications as prescribed Continue to limit your fluid intake to 2500 mls/day. Weigh yourself every day. Let your physician know if you gain more than 4 pounds in a couple of days. Follow-up with your primary care doctor within 1 week to have repeat blood work done to monitor your renal function Follow-up with cardiology in 2 weeks Discharge Orders/Prescriptions Prescriptions: New spironolactone 25 mg Tablet 25 mg PO DAILY 30 Days Qty: 30 0RF metoprolol tartrate 25 mg Tablet 25 mg PO BID 30 Days Qty: 60 0RF Continued aspirin [Adult Low Dose Aspirin] 81 mg tablet,delayed release (DR/EC) 81 mg PO QDAY hydrocodone-acetaminophen 5-325 mg tablet 0.5 tab PO DAILY PRN (Reason: Pain) furosemide [Lasix] 40 mg tablet 40 mg PO BID simvastatin 40 mg tablet 40 mg PO QPM Eliquis 5 mg tablet 5 mg PO BID Discontinued metoprolol tartrate 50 mg tablet 100 mg PO BID diltiazem HCl 120 mg capsule,extended release 24hr 120 mg PO DAILY Referrals / Follow Up: Philip Coronado MD [Primary Care Provider] - In 1 Week Thomas Cunningham MD [Med Staff - Active Staff] - Within 2 Weeks Disposition Disposition (needs filled in before D/C Order can be placed): Home, Self Care
--- NOTE | 2021-12-15 12:42 | DS.PCM_ITS ---
Providers Date of Admission: 12/10/21 Date of Discharge: 12/15/21 Primary Care Physician: Dr. Philip Coronado MD Consultations 12/12/21 07:04 Consult: Cardiology Routine Consulting Provider: [facility] Reason for Consult: A fib with RVR EMERGENT Consult: No MD Notified: Yes Date Notified: 12/12/21 Time Notified: 07:39 Method of Notification: Text Reason For Visit: AFIB WITH RVR Diagnosis Discharge Diagnosis (1) New onset atrial fibrillation: Status: Acute Code(s): I48.91 - Unspecified atrial fibrillation (2) Acute on chronic heart failure with preserved ejection fraction (HFpEF): Status: Acute Code(s): I50.33 - Acute on chronic diastolic (congestive) heart failure Plan 1. A fib with RVR 2. Acute on chronic HFpEF 3. Hypokalemia 4. Hypomagnesemia 5. CAD s/p CABG,s/p stent/PCI 6. ALICIA on BiPAP, 7. Hypertension Medications at Discharge Home Medications aspirin 81 mg tablet,delayed release (Adult Low Dose Aspirin) 81 mg PO QD [employer] [facility] 08/29/17 hydrocodone-acetaminophen 5-325mg 5mg-325mg 0.5 tab PO DAILY PRN Pain 09/08/20 apixaban 5 mg tablet (Eliquis) 5 mg PO BID blood thinner 12/10/21 furosemide 40 mg tablet (Lasix) 40 mg PO BID water retention 12/10/21 simvastatin 40 mg tablet 40 mg PO QPM cholesterol 12/10/21 metoprolol tartrate 25 mg tablet 25 mg PO BID 30 days #60 tabs 12/15/21 spironolactone 25 mg tablet 25 mg PO DAILY 30 days #30 tabs 12/15/21 Hospital Course Operations None Procedures 2-D Echocardiogram and Cardioversion Summary of Care Provided Minutes Spent on Discharge: 40 Hospital Course: 56-year-old male with past medical history of CAD status post stent who comes in with progressive shortness of breath ongoing for almost extremity symptoms bilateral leg swelling ongoing for 3 days. Patient had gone to the rn renal office and found to have A. fib with RVR and started on Cardizem, Lasix, Eliquis, and his metoprolol was increased to 100mg twice a day. Patient reportedly was taking his metoprolol 50 mg twice a day. He presented to the ED with complaints of palpitations. In the ED, he was found to be in A. fib with RVR. 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 He was admitted to the progressive care unit and managed with IV on Cardizem and also started on Lasix. He was noted to be bradycardic. His Cardizem was held. He was resumed on his metoprolol. Patient however became tachycardic again. Oral Cardizem was added with not much change in his heart rate. He had andres ctrolyte imbalances that were replaced. Cardiology was consulted. Patient underwent JOSE ALBERTO guided synchronized biphasic DC cardioversion on 12/14/21. Patient converted to normal sinus rhythm, bradycardic with junctional rhythm. Patient was monitored overnight and remained bradycardic. He was discharged on metoprolol 25 mg p.o. twice daily as well as Lasix 40 mg p.o. twice daily. He will follow-up with cardiology within 2 weeks. He also follow-up with his primary care doctor within a week. Physical Exam Narrative Physical exam: General: Alert, Oriented x3, Cooperative, off oxygen HEENT: Atraumatic Oral: Moist Mucosa Neck: Supple Lungs: Diminished to auscultation Cardiovascular: HS I+II, regular, no murmurs Abdomen: Bowel Sounds Present, Soft, Non Tender Extremities: Bilateral edema+1-2 Skin: No rashes, No breakdown Neurological: Grossly intact Psych/Mental Status: Appropriate Weight / BMI Weight Weight: 106.1 kg Body Mass Index (BMI) 37.0 ABG / Lab / Microbiology Data Result Diagrams: 12/15/21 06:10 12/15/21 06:10 Laboratory: Laboratory Results - last 24 hr 12/15/21 06:10: WBC 9.7, RBC 5.10, Hgb 16.0, Hct 47.3, MCV 92.7, MCH 31.4, MCHC 33.8, RDW Std Deviation 47.4 H, RDW Coeff of Ashwini 13.8, Plt Count 187, MPV 11.0, Immature Gran % (Auto) 0.400, Neut % (Auto) 63.1, Lymph % (Auto) 17.8 L, Polk % (Auto) 14.7 H, Eos % (Auto) 3.1, Baso % (Auto) 0.9, Absolute Neuts (auto) 6.1, Absolute Lymphs (auto) 1.73, Nucleated RBC % 0 12/15/21 06:10: Sodium 137, Potassium 3.8, Chloride 98, Carbon Dioxide 32.0, Anion Gap 7, BUN 21 H, Creatinine 1.09, Estim Creat Clear Calc 75.67, Est GFR (MDRD) Af Amer 90, Est GFR (MDRD) Non-Af 74, BUN/Creatinine Ratio 19.3, Glucose 147 H, Calcium 9.2, Magnesium 2.0, Total Bilirubin 1.10 H, AST 29, ALT 35, Alkaline Phosphatase 103, Total Protein 7.3, Albumin 3.6, Globulin 3.7, Albumin/Globulin Ratio 1.0 Microbiology: Microbiology 12/10/21 09:53 Nasal Secretion SARS-CoV-2 Antigen (Rapid) - Final Radiography Diagnostic Testing: Radiology Impression Transesophageal Echocardiogram 12/14/21 08:30 Interpretation Summary Segmental dysfunction with preserved ejection fraction (see wall motion). The estimated ejection fraction is 55 %. The left atrium is moderately enlarged. There is mild sponatenous contrast in the left atrium. No thrombus is detected in the left atrial appendage. The right atrium is mildly enlarged. There is mild mitral annular calcification. Trivial mitral valve insufficiency. Mild tricuspid valve insufficiency. Mild focal aortic valve thickening. Bubble contrast study negative for right to left interatrial shunt. Mild atherosclerosis of the descending aorta. Ordering Physician: Thomas Cunningham Referring Physician: MD Philip Coronado Performed By: Anjali Coon, MELITA, RVT D/C Instructions Discharge Diet: Low fat / Low cholesterol Meaningful Use Info Meaningful Use Diagnoses (Choose all that apply): None applicable Discharge Plan Admission Admit Date/Time: 12/10/21 13:29 Primary Reason for Your Visit: Acute CVA Attending Provider: Brittney Bucio Primary Care Provider: Philip Coronado Consulting Providers: Hugo Medeiros ; Wilda Brady ; Areli David ; Robert Ruiz ; Sharif Conklin ; Mina Enriquez ; Ha Benson ; Nima Dewitt ; Lakisha Beckham ; Daron Sommer ; Patricia Curran ; Arturo Bloom ; Thomas Cunningham ; Colton De Jesus ; Charles Casillas ; Gregory Coon JIG BORE TOOL MAKER ; Wilda Anderson JIG BORE TOOL MAKER ; Rosaura De La O PA Instructions Additional Instructions / Restrictions: Continue to take your medications as prescribed Continue to limit your fluid intake to 2500 mls/day. Weigh yourself every day. Let your physician know if you gain more than 4 pounds in a couple of days. Follow-up with your primary care doctor within 1 week to have repeat blood work done to monitor your renal function Follow-up with cardiology in 2 weeks Discharge Orders/Prescriptions Prescriptions: New spironolactone 25 mg Tablet 25 mg PO DAILY 30 Days Qty: 30 0RF metoprolol tartrate 25 mg Tablet 25 mg PO BID 30 Days Qty: 60 0RF Continued aspirin [Adult Low Dose Aspirin] 81 mg tablet,delayed release (DR/EC) 81 mg PO QDAY hydrocodone-acetaminophen 5-325 mg tablet 0.5 tab PO DAILY PRN (Reason: Pain) furosemide [Lasix] 40 mg tablet 40 mg PO BID simvastatin 40 mg tablet 40 mg PO QPM Eliquis 5 mg tablet 5 mg PO BID Discontinued metoprolol tartrate 50 mg tablet 100 mg PO BID diltiazem HCl 120 mg capsule,extended release 24hr 120 mg PO DAILY Referrals / Follow Up: Philip Coronado MD [Primary Care Provider] - In 1 Week Thomas Cunningham MD [Med Staff - Active Staff] - Within 2 Weeks Disposition Disposition (needs filled in before D/C Order can be placed): Home, Self Care Charges/Coding Visit Charges Inpatient E&M: 01148 Disch Hosp
--- NOTE | 2021-12-25 15:39 | CARDIOVERS ---
Cardioversion Cardioversion: Date: Procedure: Synchronized Biphasic DC Cardioversion Indications: Atrial fibrillation Consent: Per the Patient Anesthesia: per Dr. Henriquez of pulmonology and critical care medicine with propofol 40 mg IV push total Procedure: Synchronized Biphasic DC Cardioversion: 200 J x 1: Result: Sinus rhythm/sinus bradycardia/intermittent junctional rhythm Complications: no apparent complications This note was generated with LOVEThESIGNation software. It may contain incorrect words, spelling, and punctuation that were not noted in checking the note before signing.
== END 2021-12-15 12:59 | disposition home or self-care (01) | DRG 291 ==
LOC: ED 09:43 → PCU 14:42
PROVIDERS: Admitting Provider Internal Medicine; Emergency Provider Emergency Medicine; PCP Family Medicine; Visit Provider Internal Medicine
DX: I11.0 Hypertensive heart disease with heart failure (principal); I50.33 Acute on chronic diastolic (congestive) heart failure; E78.5 Hyperlipidemia, unspecified; Z79.01 Long term (current) use of anticoagulants; Z95.1 Presence of aortocoronary bypass graft; I48.91 Unspecified atrial fibrillation; I25.10 Atherosclerotic heart disease of native coronary artery without angina pectoris; G47.33 Obstructive sleep apnea (adult) (pediatric); E87.6 Hypokalemia; E83.42 Hypomagnesemia; Z79.82 Long term (current) use of aspirin; Z79.899 Other long term (current) drug therapy
CPT/HCPCS: 36415; 71046; 80048; 80053; 80061; 83735; 83880; 84100; 84443; 84484; 85025; 87811; 93005; 93306; 93312; 93320; 93325; 93970; 94002; 94003; 94762; 99285; Q9957; A4216; C8929; J1940

== ENCOUNTER → 2022-04-01 | Outpatient (CLI) | payer OTHER, SELFPAY ==
[2018-10-26 11:39] VITALS: BMI 38.9
== END | disposition home or self-care (01) ==
LOC: PSN 08:04
PROVIDERS: PCP Family Medicine; Referring Provider Nurse Practitioner Family; Visit Provider Nurse Practitioner Family
DX: R00.1 Bradycardia, unspecified (principal)
CPT/HCPCS: 93225; 93226

== ENCOUNTER → 2022-04-24 | Outpatient (CLI) | payer OTHER, SELFPAY ==
[2018-10-26 11:39] VITALS: BMI 38.9
== END | disposition home or self-care (01) ==
LOC: PSN 07:34
PROVIDERS: PCP Family Medicine; Visit Provider Physician Assistant Medical
DX: R00.1 Bradycardia, unspecified (principal)
CPT/HCPCS: 93225; 93226

== ENCOUNTER → 2022-05-02 | Outpatient (CLI) | payer OTHER, SELFPAY ==
[2018-10-26 11:39] VITALS: BMI 38.9
[2022-05-02 12:44] LABS: Bacteria 0 SEEN /hpf (None Seen); Mucous, Urine 0 SEEN /hpf (<or=2+); Red Blood Cells-Urine 0 SEEN /hpf (0-5); Squamous Epithelial Cells - UA 0 SEEN /hpf (0-5); White Blood Cells 0 SEEN /hpf (0-5)
[2022-05-02 13:47] LABS: Hematocrit 41.1 % (40-54); Hemoglobin 13.5 g/dL (13.0-16.5); Mean Corp Hgb Conc 32.8 g/dL (32-36); Mean Corpuscular Hgb 30.5 pg (27.0-32.0); Mean Corpuscular Volume 92.8 fL (80-94); Mean Platelet Vol. 11.6 fl (6.2-12.0); Platelet Count 144 K/mm3 (150-450); RBC Distribution Width CV 12.2 % (11.6-14.6); RBC Distribution Width SD 42.1 fl (35.1-43.9); Red Blood Count 4.43 M/mm3 (4.6-6.2); White Blood Count 7.5 K/mm3 (4.4-11.0)
[2022-05-02 13:58] LABS: International Normalized Ratio 1.4
[2022-05-02 14:02] LABS: Color, Urine Straw (Yellow); Glucose, Dipstick Normal (Normal); Ketone-Dipstick Negative (Negative); Leukocyte Esterase-Dipstick 25 /ul (Negative); Nitrite-Dipstick Negative (Negative); Occult Blood-Urine Negative /ul (Negative); Protein-Dipstick Negative (Negative); Urine Bilirubin Dipstick Negative (Negative); Urine Clarity Clear (Clear); Urine Urobilinogen Normal (Normal)
[2022-05-02 14:11] LABS: Anion Gap 5 (5-15); BUN 36 mg/dL (7-18); BUN/Creat Ratio 19.9 RATIO (10-20); Calcium,Total 9.9 mg/dL (8.5-10.1); Chloride 103 mmol/L (98-107); Creatinine, Serum 1.81 mg/dL (0.70-1.30); EST Glomerular Filtration Rate 41 mL/min (>60); Est Glom Filt Rate - Afr Amer 50 mL/min (>60); Glucose 92 mg/dL (74-106); Potassium 4.7 mmol/L (3.5-5.1); Sodium Level 137 mmol/L (136-145)
== END | disposition home or self-care (01) ==
LOC: LAB 12:40
PROVIDERS: PCP Family Medicine; Visit Provider Physician Assistant Medical
DX: I49.5 Sick sinus syndrome (principal)
CPT/HCPCS: 36415; 80048; 81001; 85027; 85610

== ENCOUNTER 2022-05-10 15:15 | Observation (INO) | payer OTHER, SELFPAY ==
[2018-10-26 11:39] VITALS: BMI 38.9
[2022-05-09 11:49] VITALS: BMI 35.9
[2022-05-10] VITALS (7 sets, daily range): BP systolic 117–132; BP diastolic 65–72; PULSE 60; RESP 18; TEMP 36.7–37.2; O2SAT 97–99; BMI 35.9
--- NOTE | 2022-05-10 14:08 | CL.IE_ITS ---
Patient: BHARAT HOLLY Study Date: 05/10/2022 Performing: Mina Enriquez MD : 1965 Age: 56 Gender: male PROCEDURES PERFORMED [id number])INITIAL PACER INSERT+DUAL LEADS INDICATIONS Sinoatrial node dysfunction/Sick sinus syndrome PROCEDURE DETAILS The patient was brought to the Catheterization Lab in the postabsorptive nonsedated state. Informed consent was obtained prior to the procedure. Local anesthetic was given subcutaneously to the left subclavian region with Lidocaine 2%. Access was achieved and a guidewire was advanced into the left subclavian vein. A peel-away sheath was inserted into the left subclavian vein. PPM ventricular lead was inserted / positioned to right ventricular apex. PPM ventricular lead testing performed. PPM ventricular lead testing performed. PPM ventricular lead testing performed. PPM ventricular lead testing performed. A peel-away sheath was inserted into the left subclavian vein. PPM atrial lead was inserted / positioned to the right atrial appendage. PPM atrial lead testing performed. The Atrial lead sutured in place with 2-0 Silk. The Ventricular PM lead sutured in place with 2-0 Silk. Device pocket was irrigated with antibiotic. PPM generator was attached to the lead(s) and inserted into the pocket. Subcutaneous closure was completed with 3-0 Vicryl. Skin closure was completed with 4-0 Vicryl. Steri-strips applied to left subclavicular incision. The patient tolerated the procedure well. Estimated Blood Loss: 15 ml's IMPLANTED / EX-PLANTED DEVICES IMPLANTED DEVICE(S): PPM Atrial lead - Talent Manager: [employer], Model # Tendril STS 52cm , Serial # [id number] PPM Ventricular lead - Talent Manager: [employer], Model # Tendril STS 58cm , Serial # [id number] PPM Generator - Talent Manager: [employer], Model # Assurity MRI Pulse Generator , Serial # [id number] DEVICE PARAMETERS ATRIAL LEAD PARAMETERS: P wave- 2.6 (mV) Current- 1.1 (mA) threshold- 0.5 (V) impedence- 436 (OHMS) VENTRICULAR LEAD PARAMETERS: R wave- 17.7 (mV) Current- 0.4 (mA) threshold- 0.3 (V) impedence- 754 (OHMS) DEVICE PARAMETERS: Mode- DDDR Lower rate- 60 Upper rate- 120 CONCLUSIONS / RECOMMENDATIONS Device Conclusions: Successful implantation of a dual chamber pacemaker Device Recommendations: Follow up with Primary Care Physician PROCEDURE MEDICATIONS Versed 2 mg IV Fentanyl 50 mcg IV Versed 1 mg IV Fentanyl 25 mcg IV Versed 1 mg IV Fentanyl 25 mcg IV Versed 1 mg IV Versed 1 mg IV Versed 1 mg IV Oxygen: 2 L/min via nasal cannula Oxygen: 3 L/min via nasal cannula Antibiotic given in appropriate timeframe. Ancef 2 Gm IV @ 05/10/2022 11:57:26 Signed By Mina Enriquez MD On 05/10/2022 14:07:25 Mina Enriquez MD
[2022-05-10] MEDS: HYDROcodone Bitartrate/Apap 5/325 Tablet PO (21:16)
[2022-05-10] MEDS: Atorvastatin Calcium 20 MG Tablet PO (21:16)
[2022-05-11 03:05] VITALS: BP 130/63; PULSE 60; RESP 18; TEMP 36.8; O2SAT 98
--- NOTE | 2022-05-11 03:10 | NURSING ---
Pt assessment completed at this time. After assessment completed this rn asked pt if he had to pee and if he needed any assistance with the urinal. Pt told this rn no, but that I needed to put the rail on the bed down so that he could sit up to use the urinal himself. This rn instructed pt that he is on complete bedrest due to his new pacermaker site. Pt states that he got up before and nobody said a thing and this wasn't an issue. This rn tells pt that he was not to be out of the bed at any point and if he was he was not supposed to have been at any point. This rn knows pt has not been out of bed this shift as the bed exit has been on the entire shift. Pt starts becoming belligerent with this rn and cussing stated to the rn the fuck if i'm not going to get out of this bed. Also stated that he's going home in several hours so why does this matter. This rn attempts to explain to the pt the importance of bedrest and not moving his arm, pt stated that he's going to do what he wants to do and that he becoming pissed off towards this rn. This rn asked if pt would like to speak with the furnace charger and he stated get her in here. Romy furnace charger to see pt.
--- NOTE | 2022-05-11 03:12 | NURSING ---
This RN was notified by primary RN Wandy Pitt that pt had become belligerent regarding ordered bedrest and not being able to sit at the bedside and use the urinal. This RN spoke with pt who appeared extremely agitated and stated give me my papers and I'll go right now. Pt was given reinforcement teaching regarding the importance of maintaining complete bedrest and the risk of dislodging his pacemaker wires. Pt replied that he was going to go home in a couple of hours anyway and that he was going to get up to pee regardless of what this RN was saying. Pt proceeded to get out of bed unassisted and continued to cuss and be belligerent with staff. Kanika RODRÍGUEZ
--- NOTE | 2022-05-11 05:55 | RAD_ITS ---
INDICATION: Post permanent ICD/Pacemaker -- inspiration/expiration. Arms Down. Wet read to MD EXAMINATION/TECHNIQUE: X-RAY - XR Chest 3 Views COMPARISON: Chest x-ray from 12/10/2021 FINDINGS: LINES/DEVICES: Left AICD in place. LUNGS: Slightly prominent pulmonary vasculature. No sizable pleural effusion. No pneumothorax detected. MEDIASTINUM AND CARDIOVASCULAR STRUCTURES: Heart size within normal limits. Status post sternotomy and CABG. Mediastinal contours unremarkable. BONES AND SOFT TISSUES: Skeletal degenerative changes. Mild chronic vertebral wedge deformity at lower thoracic spine. RAD/Chest 3 View IMPRESSION: Mild central pulmonary vascular congestion. Electronically Signed: Philip Jarrell MD at 4:59 EST ,
[2022-05-11 07:00] VITALS: PULSE 63
[2022-05-11 09:05] VITALS: BP 141/75; PULSE 60; RESP 16; TEMP 36.7; O2SAT 98
[2022-05-11] MEDS: Spironolactone 25 MG Tablet PO (09:08)
[2022-05-11] MEDS: Aspirin E.C. 81 MG Tablet PO (09:08)
[2022-05-11] MEDS: Lisinopril 10 MG Tablet PO (09:08)
--- NOTE | 2022-05-11 11:33 | PCM.PN.CARD ---
Subjective Subjective Patient evaluate. Objective Data Vital Signs: Vital Signs Temp Pulse Resp BP Pulse Ox O2 Del Method 98.0 F 60 16 141/75 H 98 Room Air 05/11/22 09:05 05/11/22 09:05 05/11/22 09:05 05/11/22 09:05 05/11/22 09:05 05/11/22 09:05 Oxygen Delivery Method Room Air Weight: 242 lb 15.19 oz Body Mass Index (BMI) 35.9 Intake & Output: Intake and Output for Last 24 Hours 05/09/22 05/10/22 05/11/22 23:59 23:59 23:59 Intake Total 760 / 760 240 / 240 Output Total 500 / 500 Balance 760 / 760 -260 / -260 Cardiology Labs/Tests Rhythm: EKG: ECHO: Stress Test: Cardiac Cath: PCI: CT Surgery: Holter monitor: EPS: PPM: CXR: Chest CT Scan: Radiography Diagnostic Testing: Radiology Impression Chest X-Ray 05/11/22 05:55 IMPRESSION: Mild central pulmonary vascular congestion. Electronically Signed: Philip Jarrell MD at 4:59 EST , Assessment & Plan Assessment/Plan (1) Pacemaker: PLAN: Status post pacemaker implantation. Pacemaker interrogation demonstrates normal function. Chest x-ray demonstrates adequate position. Will discharge for outpatient follow-up.
--- NOTE | 2022-05-11 11:36 | DCINST_ITS ---
Discharge Instructions Diet Discharge Diet: No restrictions Activity Discharge Activity: May Not Drive Additional Activity Instructions:: May shower or bathe on [day 3]. Do not scrub the incision or soak in the tub. Just wash with soap and let the water run over the incision. Gently pat dry with towel. Medications: Take your pain medication as directed. Refer to your discharge instruction sheet for a list of medications you are to take. Dressing / Incision Call your doctor if your incision/area has: Continuous Slow Oozing, Sudden Increased Bleeding, Increased Pain/ Swelling, Increased Redness, Foul Smelling Discharge and Swelling at the incision site Call your doctor if you observe: Fever of 101 or Higher, Shortness of breath, Dizziness, Fainting spells, Swelling in the ankles, Chest pain, Prolonged hiccupping and Increased palpitations (irregular heartbeat) Suture Line Care: Avoid Pulling/Pushing and Avoid Pinching/Bending Remove Dressing in: 3 days Cleanse incision/area with: Keep Dressing Clean & Dry Additional Dressing/Incision Instructions:: When dressing is removed, wash and dry incision. Keep covered with a light bandage if it is rubbing against your clothing. Do not cover the incision with an airtight bandage. Change the bandage daily. Do not remove steri strips. The strips will fall off on their own. Follow Up Care Please Follow Up With: Mina Enriquez MD When: Pacer follow up on May at 1 PM Test Results: Test results from this visit will be discussed in further detail at your follow- up appointment, if applicable. Discharge Plan Admission Admit Date/Time: 05/10/22 15:15 Attending Provider: Mina Enriquez Primary Care Provider: Philip Coronado Discharge Orders/Prescriptions Prescriptions: Held Eliquis 5 mg tablet 5 mg PO BID Hold Instructions: Resume on 05/18/22. No Action aspirin [Adult Low Dose Aspirin] 81 mg tablet,delayed release (DR/EC) 81 mg PO QDAY hydrocodone-acetaminophen 5-325 mg tablet 0.5 tab PO DAILY PRN (Reason: Pain) furosemide [Lasix] 40 mg tablet 40 mg PO DAILY Qty: 180 3RF dronedarone 400 mg tablet 400 mg PO BID Qty: 60 11RF Rx Instructions: must administer with a meal/food lisinopril 10 mg tablet 10 mg PO DAILY Qty: 30 11RF spironolactone 25 mg tablet 25 mg PO DAILY Hold Instructions: low bp simvastatin 40 mg tablet 40 mg PO QPM Referrals / Follow Up: Philip Coronado MD [Primary Care Provider] - Disposition Disposition (needs filled in before D/C Order can be placed): Home, Self Care
--- NOTE | 2022-05-11 11:38 | NURSING ---
Instructed patient that he is still on bedrest until seen by Dr. Enriquez. Patient refused to stay in bed and proceeded to ambulate to the bathroom. This RN notified Dr. Enriquez.
[2022-05-11] MEDS: Furosemide 40 MG Tablet PO (11:40)
== END 2022-05-11 11:36 | disposition home or self-care (01) ==
LOC: CLSP 15:50 → PCU 15:50
PROVIDERS: Admitting Provider Internal Medicine Cardiovascular Disease; PCP Family Medicine; Referring Provider Internal Medicine Cardiovascular Disease; Visit Provider Internal Medicine Cardiovascular Disease
DX: Z45.018 Encounter for adjustment and management of other part of cardiac pacemaker (principal); I49.5 Sick sinus syndrome; I48.0 Paroxysmal atrial fibrillation; I25.10 Atherosclerotic heart disease of native coronary artery without angina pectoris; Z95.1 Presence of aortocoronary bypass graft; Z79.82 Long term (current) use of aspirin; Z79.01 Long term (current) use of anticoagulants; Z79.899 Other long term (current) drug therapy; I10 Essential (primary) hypertension; G47.33 Obstructive sleep apnea (adult) (pediatric); E78.5 Hyperlipidemia, unspecified
CPT/HCPCS: 33208; 71047; 99152; 99153; 99221; J7040; J7050; C1894; G0378

== ENCOUNTER → 2022-07-30 | Outpatient (CLI) | payer OTHER, SELFPAY ==
[2018-10-26 11:39] VITALS: BMI 38.9
[2022-07-30 13:39] LABS: ALB/GLOB Ratio 1.2 RATIO (0.9-2.4); AST(SGOT) 27 U/L (15-37); Alanine Aminotransfer ALT/SGPT 30 U/L (16-61); Albumin, Serum 4.1 g/dL (3.2-5.0); Alkaline Phosphatase 65 U/L (45-117); Anion Gap 4 (5-15); BUN 29 mg/dL (7-18); BUN/Creat Ratio 23.8 RATIO (10-20); Calcium,Total 9.7 mg/dL (8.5-10.1); Chloride 105 mmol/L (98-107); Creatinine, Serum 1.22 mg/dL (0.70-1.30); EST Glomerular Filtration Rate 65 mL/min (>60); Est Glom Filt Rate - Afr Amer 79 mL/min (>60); Globulin 3.5 g/dL (2.2-4.2); Glucose 104 mg/dL (74-106); Potassium 4.4 mmol/L (3.5-5.1); Protein, Total 7.6 g/dL (6.4-8.2); Sodium Level 135 mmol/L (136-145)
== END | disposition home or self-care (01) ==
LOC: LAB 11:56
PROVIDERS: PCP Family Medicine; Referring Provider Physician Assistant Medical; Visit Provider Physician Assistant Medical
DX: I25.10 Atherosclerotic heart disease of native coronary artery without angina pectoris (principal)
CPT/HCPCS: 36415; 80053

== ENCOUNTER → 2022-12-30 | Outpatient (CLI) | payer OTHER, SELFPAY ==
[2018-10-26 11:39] VITALS: BMI 38.9
[2022-12-30 13:46] LABS: Amphetamine Urine VISTA NEGATIVE (<1000 ng/mL); Barbiturate Urine VISTA NEGATIVE (< 200 ng/mL); Benzodiazepine Urine VISTA NEGATIVE (< 200 ng/mL); Cocaine Urine VISTA NEGATIVE (< 300 ng/mL); Ecstacy Urine VISTA NEGATIVE (< 500 ng/mL); Methadone Urine VISTA NEGATIVE (< 300 ng/mL); PCP Urine VISTA NEGATIVE (< 25 ng/mL); THC Urine VISTA NEGATIVE (< 50 ng/mL); Vista UDS pH Range 5
== END | disposition home or self-care (01) ==
LOC: LAB 13:11
PROVIDERS: PCP Family Medicine; Referring Provider Anesthesiology Pain Medicine; Visit Provider Anesthesiology Pain Medicine
DX: F11.20 Opioid dependence, uncomplicated (principal)
CPT/HCPCS: 80307

== ENCOUNTER → 2023-06-06 | Outpatient (CLI) | payer OTHER, SELFPAY ==
[2018-10-26 11:39] VITALS: BMI 38.9
--- OUTSIDE RECORDS SUMMARY | 2023-06-06 07:21 | XMS RPT_ITS | CCD ---
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 Name Role Phone Cyn Clemente Y Unavailable Unavailable Cyn Clemente Y Unavailable Unavailable MD Mina, Mina Munguia Unavailable ANNE Perrin, Ghada Mendoza Unavailable Unavailabl e LOUIS, CLAUDIA C Unavailable Unavailable LOUIS, CLAUDIA C Unavailable Unavailable LOUIS, CLAUDIA C Unavailable Unavailable RADHA MEJÍA Unavailable Unavailable PROVIDER, UNKNOWN Unavailable Unavailable PROVIDER, UNKNOWN Unavailable Unavailable PROVIDER, UNKNOWN Unavailable Unavailable Marlow DO, Scot D Unavailable Cyn Clemente Y Unavailable Unavailable PHYSICIAN, NONE Primary Care Physician Unavailab Gaye Govea Unavailable Unavailable DR BHARAT PFEIFFER MD Primary Care Physician Bharat Pfeiffer MD Primary Care Provider Bharat Pfeiffer MD Primary Care Provider Bharat Pfeiffer MD Primary Care Provider BHARAT PFEIFFER Consulting Unavailable BHARAT PFEIFFER Referring Unavailable COLT, DARREL E Admitting Unavailable COLT, DARREL E Primary Care Unavailable COLT DARREL E Attending Unavailable PROVIDER, UNKNOWN Consulting Unavailable BHARAT PFEIFFER Referring Unavailable LOUIS, CLAUDIA Elian Admitting Unavailable LOUIS, CLAUDIA C Primary Care Unavailable LOUIS CLAUDIA C Attending Unavailable BHARAT PFEIFFER Consulting Unavailable PROVIDER, UNKNOWN Consulting Unavailable LOUIS, CLAUDIA C Admitting Unavailable LOUIS, CLAUDIA C Primary Care Unavailable LOUIS CLAUDIA C Attending Unavailable BHARAT PFEIFFER Consulting Unavailable PROVIDER, UNKNOWN Consulting Unavailable BHARAT PFEIFFER Primary Care Unavailable GANGEL JR, BURKE GENE Referring Unavaila ble ELDERBHARAT SCHOFIELD Primary Care Unavailable TC VIERA, BURKE GENE Attending Unavaila ble ELDERBHARAT SCHOFIELD Primary Care Unavailable TC VIERA, BURKE GENE Referring Unavaila ble ELDERBROCK, BHARAT Martins Primary Care Unavailable BURKE DAVIS JR GENE Admitting Unavaila ble ELDERBROCK, BHARAT Martins Primary Care Unavailable BURKE DAVIS JR GENE Referring Unavaila ble TC JR, BURKE GENE Attending Unavaila ble ELDERBHARAT SCHOFIELD Primary Care Unavailable CHLOÉ JOAQUIN Referring Unavailable ELDERBROCK, BHARAT Martins Primary Care Unavailable ELDERBROCK, BHARAT Martins Referring Unavailable ELDERBROCK, BHARAT Martins Primary Care Unavailable CHLOÉ JOAQUIN Attending Unavailable WILY MCGHEE Referring Unavailable ELDERBROCK, BHARAT Martins Primary Care Unavailable ELDERBROCK, BHARAT Martins Referring Unavailable WILY MCGHEE Attending Unavailable ELDERCHANDU, BHARAT Martins Primary Care Unavailable ELDERBROCK, BHARAT Martins Referring Unavailable ELDERBROCK, BHARAT Martins Primary Care Unavailable ELDERCHANDU, BHARAT Martins Referring Unavailable ELDERBROHUSAM, BHARAT Martins Primary Care Unavailable ELDERCHANDU, BHARAT Martins Referring Unavailable ELDERCHANDU, BHARAT Martins Attending Unavailable MARGARETTE, BHARAT Martins Primary Care Unavailable ELDERCHANDU, BHARAT Martins Attending Unavailable MARGARETTE, BHARAT Martins Primary Care Unavailable SULY BAH Attending Unavailable MARGARETTE, BHARAT Martins Primary Care Unavailable BURKE DAVIS Referring Unavailable BHARAT PFEIFFER Primary Care Unavailable SULY BAH Attending Unavailable Allergies Allergy Classification Reported Allergen(s) Allergy Type Date of Onset Reaction(s) Facility (5 sources) lisinopril drug allergy 07-17-2010 Cough [facility] Work Phone: Medications Current Medications Medication Drug Class(es) Dates Sig (Normalized) Sig (Original) acetaminophen 325 mg / oxyCODONE hydrochloride 5 mg oral tablet (4 sources) Opioid Agonist Start: 03-24-2023 End: 03-27-2023 take 1 tablet by mouth every four hours as needed for pain oxyCODONE-acetami nophen (PERCOCET) 5-325 mg tablet Indications: Renal calculus, right Take 1 tablet by mouth every 4 hours as needed for pain for up to 3 days. 5 tablet 0 03/24/2023 03/27/2023 Active Completed/Discontinued Medications Medication Drug Class(es) Dates Sig (Normalized) Sig (Original) acetaminophen 325 mg / HYDROcodone bitartrate 5 mg oral tablet (15 sources) Opioid Agonist Start: 08-23-2022 take 1 tablet by mouth every twelve hours as needed HYDROcodone-aceta minophen (NORCO) 5-325 mg per tablet Take 1 tablet by mouth twice daily as needed. 0 08/23/2022 Active Problems Active Problems Problem Classification Problem Date Documented Date Episodic/Chronic Calculus of urinary tract (11 sources) Kidney stone; Translations: [Calculus of kidney] Onset: 03-10-2023 03-10-2023 Episodic Cardiac dysrhythmias (9 sources) Sick sinus syndrome; Translations: [Sick sinus syndrome] Onset: 02-27-2022 10-29-2022 Chronic Chronic obstructive pulmonary disease and bronchiectasis (1 source) Bronchitis, not specified as acute or chronic; Translations: [Sinobronchitis] Onset: 04-10-2023 Episodic Complication of device; implant or graft (2 sources) Arteriosclerosis of coronary artery bypass graft; Translations: [Atherosclerosis of coronary artery bypass graft(s) without angina pectoris] Onset: 06-28-2021 03-18-2023 Chronic Conduction disorders (7 sources) Cardiac pacemaker in situ; Translations: [Presence of cardiac pacemaker] Onset: 06-07-2022 03-18-2023 Chronic Congestive heart failure; nonhypertensive (8 sources) Systolic heart failure; Translations: [Unspecified systolic (congestive) heart failure] Onset: 02-05-2021 Chronic Coronary atherosclerosis and other heart disease (20 sources) Atherosclerotic heart disease of [place] coronary artery without angina pectoris; Translations: [Coronary atherosclerosis] Onset: 07-17-2010 Resolved: 08-29-2016 08-29-2016 Chronic Coronary atherosclerosis and other heart disease (11 sources) Presence of aortocoronary bypass graft; Translations: [Presence of aortocoronary bypass graft] Onset: 07-17-2010 07-17-2010 Episodic Disorders of lipid metabolism (12 sources) Hyperlipidemia; Translations: [Hyperlipidemia, unspecified] Onset: 11-10-2012 11-10-2012 Chronic E Codes: Fall (1 source) Fall; Translations: [Unspecified fall, initial encounter] Onset: 02-05-2021 Episodic Essential hypertension (8 sources) Essential hypertension; Translations: [Essential (primary) hypertension] Onset: 02-05-2021 Chronic Genitourinary symptoms and ill-defined conditions (3 sources) Geronimo hematuria; Translations: [Gross hematuria] Onset: 12-20-2022 02-24-2023 Episodic Joint disorders and dislocations; trauma-related (1 source) Closed dislocation of interphalangeal joint of thumb; Translations: [Dislocation of interphalangeal joint of unspecified thumb, initial encounter] Onset: 02-03-2021 Episodic Other endocrine disorders (20 sources) Male hypogonadism; Translations: [Testicular hypofunction] Onset: 06-28-2021 Chronic Other endocrine disorders (1 source) Testicular hypofunction; Translations: [Hypogonadism in male] Onset: 06-28-2021 Chronic Other lower respiratory disease (1 source) Cough; Translations: [Cough, unspecified type] 10-29-2022 Episodic Other lower respiratory disease (1 source) Shortness of breath; Translations: [SOB (shortness of breath)] Onset: 04-10-2023 Episodic Other male genital disorders (17 sources) Secondary erectile dysfunction; Translations: [Male erectile dysfunction, unspecified] Onset: 06-28-2021 06-28-2021 Chronic Other male genital disorders (1 source) Male erectile dysfunction, unspecified; Translations: [ED (erectile dysfunction) of organic origin] Onset: 06-28-2021 Chronic Other male genital disorders (2 sources) Hemospermia; Translations: [Hematospermia] 11-28-2022 Episodic Other male genital disorders (1 source) Hematospermia; Translations: [Blood in semen] Onset: 01-28-2023 Episodic Other nervous system disorders (1 source) Spinal cord disease; Translations: [Disease of spinal cord, unspecified] Onset: 02-05-2021 Chronic Other nervous system disorders (2 sources) Cervical myelopathy 02-13-2021 Chronic Other nutritional; endocrine; and metabolic disorders (5 sources) Body mass index (BMI) 37.0-37.9, adult; Translations: [Body mass index (BMI) 37.0-37.9, adult] Onset: 07-15-2014 07-15-2014 Chronic Other upper respiratory disease (1 source) Aphonia; Translations: [Loss of voice] Onset: 04-10-2023 Episodic Other upper respiratory infections (1 source) Chronic sinusitis, unspecified; Translations: [Sinobronchitis] Onset: 04-10-2023 Chronic Other upper respiratory infections (1 source) Acute pharyngitis, unspecified; Translations: [Sore throat] Onset: 04-10-2023 Episodic Residual codes; unclassified (6 sources) Obstructive sleep apnea syndrome; Translations: [Obstructive sleep apnea (adult) (pediatric)] Onset: 03-18-2023 03-18-2023 Chronic Residual codes; unclassified (1 source) Obstructive sleep apnea (adult) (pediatric); Translations: [ALICIA treated with BiPAP] Onset: 03-18-2023 Chronic Residual codes; unclassified (1 source) Edema of lower leg ; Translations: [Localized edema] 10-29-2022 Episodic Spondylosis; intervertebral disc disorders; other back problems (1 source) Spinal stenosis of lumbar region; Translations: [Spinal stenosis, lumbar region without neurogenic claudication] Onset: 02-17-2020 02-17-2020 Episodic Unclassified (1 source) Long-term drug therapy; Translations: [Other fci (current) drug therapy] Onset: 07-17-2010 07-17-2010 Unclassified (4 sources) Hx. HTN( Confirmed ) Onset: 12-02-2008 12-02-2008 Past or Other Problems Problem Classification Problem Date Documented Da te Episodic/Chronic Nonspecific chest pain (20 sources) Tight chest; Translations: [Precordial pain] Onset: 07-17-2010 Resolved: 08-29-2016 08-29-2016 Episodic Other aftercare (4 sources) Other fci (current) drug therapy; Translations: [Other fci (current) drug therapy] Onset: 07-17-2010 07-17-2010 Episodic Other ear and sense organ disorders (1 source) Impacted cerumen, bilateral; Translations: [Bilateral impacted cerumen] Onset: 09-25-2022 Episodic Other injuries and conditions due to external causes (17 sources) Injury of neck; Translations: [Unspecified injury of neck, initial encounter] Onset: 06-28-2021 06-28-2021 Episodic Other lower respiratory disease (10 sources) Dyspnea; Translations: [Shortness of breath] Onset: 07-17-2010 Resolved: 08-29-2016 07-17-2010 Episodic Unclassified (1 source) Problem Urinary tract infections (5 sources) Recurrent urinary tract infection; Translations: [Urinary tract infection, site not specified] Onset: 12-20-2022 12-02-2022 Episodic Results Test Name Value Interpretation Reference Range Facil ity Vital Signs Date Time Vital Sign Value Performing Clinician Facility 03-18-2023 15:14-0500 Body height 175.[address] 03-18-2023 15:14-0500 Body temperature 97.3 [degF] [address] 03-18-2023 15:14-0500 Body weight 109.[address] 03-18-2023 15:14-0500 Diastolic blood pressure 72 mm[Hg] [address] 03-18-2023 15:14-0500 Heart rate 124 /min [address] 03-18-2023 15:14-0500 Respiratory rate 16 /min [address] 03-18-2023 15:14-0500 SaO2% (BldA) [Mass fraction] 97 % [address] 03-18-2023 15:14-0500 Systolic blood pressure 99 mm[Hg] [address] 03-10-2023 10:34-0500 Diastolic blood pressure 92 mm[Hg] Burke Davis Jr., MD Work Phone: [facility] 03-10-2023 10:34-0500 Heart rate 60 /min Burke Davis Jr., MD Work Phone: [facility] 03-10-2023 10:34-0500 SaO2% (BldA) [Mass fraction] 100 % Burke Davis Jr., MD Work Phone: [facility] 03-10-2023 10:34-0500 Systolic blood pressure 160 mm[Hg] Burke Davis Jr., MD Work Phone: [facility] 12-27-2022 13:23-0400 Body weight 109.95 kg Wily Mcghee APRN.CNP Work Phone: [facility] 12-27-2022 13:23-0400 Diastolic blood pressure 78 mm[Hg] Wily Mcghee APRN.SETTLEMENT PROCESSOR Work Phone: [facility] 12-27-2022 13:23-0400 Heart rate 60 /min Wily Haroon MARKETING SENIOR RECRUITER.SETTLEMENT PROCESSOR Work Phone: [facility] 12-27-2022 13:23-0400 Respiratory rate 16 /min Wily Haroon MARKETING SENIOR RECRUITER.SETTLEMENT PROCESSOR Work Phone: [facility] 12-27-2022 13:23-0400 SaO2% (BldA) [Mass fraction] 99 % Wily Haroon MARKETING SENIOR RECRUITER.SETTLEMENT PROCESSOR Work Phone: [facility] 12-27-2022 13:23-0400 Systolic blood pressure 128 mm[Hg] Wily Haroon MARKETING SENIOR RECRUITER.SETTLEMENT PROCESSOR Work Phone: [facility] 11-28-2022 16:20-0400 Body weight 109.32 kg Bharat Pfeiffer MD Work Phone: [facility] 11-28-2022 16:20-0400 Diastolic blood pressure 82 mm[Hg] Bharat Pfeiffer MD Work Phone: [facility] 11-28-2022 16:20-0400 Heart rate 60 /min Bharat Pfeiffer MD Work Phone: [facility] 11-28-2022 16:20-0400 Respiratory rate 16 /min Bharat Pfeiffer MD Work Phone: [facility] 11-28-2022 16:20-0400 Systolic blood pressure 124 mm[Hg] Bharat Pfeiffer MD Work Phone: [facility] 10-29-2022 15:02-0400 Body height 177.8 cm Bharat Pfeiffer MD Work Phone: [facility] 10-29-2022 15:02-0400 Body weight 109.68 kg Bharat Pfeiffer MD Work Phone: [facility] 10-29-2022 15:02-0400 Diastolic blood pressure 64 mm[Hg] Bharat Pfeiffer MD Work Phone: [facility] 10-29-2022 15:02-0400 Heart rate 64 /min Bharat Pfeiffer MD Work Phone: [facility] 10-29-2022 15:02-0400 Respiratory rate 18 /min Bharat Pfeiffer MD Work Phone: [facility] 10-29-2022 15:02-0400 Systolic blood pressure 108 mm[Hg] Bharat Pfeiffer MD Work Phone: [facility] 02-08-2021 14:52-0400 Body temperature 97.88 [degF] DR BJ MEMBRENO MD [facility] 02-08-2021 14:52-0400 Diastolic blood pressure 76 mm[Hg] DR BJ MEMBRENO MD [facility] 02-08-2021 14:52-0400 Heart rate 62 /min DR BJ MEMBRENO MD [facility] 02-08-2021 14:52-0400 Mean blood pressure 101 mm[Hg] DR BJ MEMBRENO MD [facility] 02-08-2021 14:52-0400 Respiratory rate 16 /min DR BJ MEMBRENO MD [facility] 02-08-2021 14:52-0400 Systolic blood pressure 150 mm[Hg] DR BJ MEMBRENO MD [facility] 02-08-2021 14:19-0400 Diastolic blood pressure 78 mm[Hg] DR BJ EMMBRENO MD [facility] 02-08-2021 14:19-0400 Mean blood pressure 97 mm[Hg] DR BJ MEMBRENO MD [facility] 02-08-2021 14:19-0400 Systolic blood pressure 136 mm[Hg] DR BJ MEMBRENO MD [facility] 02-08-2021 11:15-0400 Heart rate 60 /min DR BJ MEMBRENO MD [facility] 02-08-2021 10:52-0400 Body temperature 98.06 [degF] DR BJ MEMBRENO MD [facility] 02-08-2021 10:52-0400 Diastolic blood pressure 92 mm[Hg] DR BJ MEMBRENO MD [facility] 02-08-2021 10:52-0400 Heart rate 80 /min DR BJ MEMBRENO MD [facility] 02-08-2021 10:52-0400 Mean blood pressure 118 mm[Hg] DR BJ MEMBRENO MD [facility] 02-08-2021 10:52-0400 Reason For Taking VItal Signs DR BJ MEMBRENO MD [facility] 02-08-2021 10:52-0400 Respiratory rate 16 /min DR BJ MEMBRENO MD [facility] 02-08-2021 10:52-0400 Systolic blood pressure 169 mm[Hg] DR BJ MEMBRENO MD [facility] 02-08-2021 06:35-0400 Body temperature 98.06 [degF] DR BJ MEMBRENO MD [facility] 02-08-2021 06:35-0400 Heart rate 55 /min DR BJ MEMBRENO MD [facility] 02-08-2021 06:35-0400 Reason For Taking VItal Signs DR BJ MEMBRENO MD [facility] 02-08-2021 06:35-0400 Respiratory rate 16 /min DR BJ MEMBRENO MD [facility] 02-08-2021 04:14-0400 Heart rate 67 /min DR BJ MEMBRENO MD [facility] 02-08-2021 04:14-0400 Reason For Taking VItal Signs DR BJ MEMBRENO MD [facility] 02-07-2021 22:49-0400 Heart rate 84 /min DR BJ MEMBRENO MD [facility] 02-07-2021 16:01-0400 Heart rate 67 /min DR BJ MEMBRENO MD [facility] 02-07-2021 11:17-0400 Heart rate 52 /min DR BJ MEMBRENO MD [facility] 02-07-2021 08:21-0400 Heart rate 56 /min DR BJ MEMBRENO MD [facility] 02-05-2021 16:30-0400 Diastolic Blood Pressure NBP [address] BJ MEMBRENO MD [facility] 02-05-2021 16:30-0400 Mean blood pressure 102 mm[Hg] DR BJ MEMBRENO MD [facility] 02-05-2021 16:30-0400 Systolic Blood Pressure NBP [address] BJ MEMBRENO MD [facility] 02-05-2021 15:35-0400 Body temperature 98.24 [degF] DR BJ MEMBRENO MD [facility] 02-05-2021 15:35-0400 Diastolic blood pressure 63 mm[Hg] DR BJ MEMBRENO MD [facility] 02-05-2021 15:35-0400 Diastolic Blood Pressure NBP [address] BJ MEMBRENO MD [facility] 02-05-2021 15:35-0400 Mean blood pressure 91 mm[Hg] DR BJ MEMBRENO MD [facility] 02-05-2021 15:35-0400 Mean blood pressure 77 mm[Hg] DR BJ MEMBRENO MD [facility] 02-05-2021 15:35-0400 Systolic blood pressure 136 mm[Hg] DR BJ MEMBRENO MD [facility] 02-05-2021 15:35-0400 Systolic Blood Pressure NBP [address] BJ MEMBRENO MD [facility] 02-05-2021 14:57-0400 Body temperature 98.24 [degF] DR BJ MEMBRENO MD [facility] 02-05-2021 14:57-0400 Diastolic blood pressure 66 mm[Hg] DR BJ MEMBRENO MD [facility] 02-05-2021 14:57-0400 Diastolic Blood Pressure NBP [address] BJ MEMBRENO MD [facility] 02-05-2021 14:57-0400 Mean blood pressure 94 mm[Hg] DR BJ MEMBRENO MD [facility] 02-05-2021 14:57-0400 Mean blood pressure 84 mm[Hg] DR BJ MEMBRENO MD [facility] 02-05-2021 14:57-0400 Systolic blood pressure 130 mm[Hg] DR BJ MEMBRENO MD [address] [place] [address] 02-05-2021 14:57-0400 Systolic Blood Pressure NBP [address] BJ MEMBRENO MD [facility] 02-05-2021 14:33-0400 Diastolic blood pressure 64 mm[Hg] DR BJ MEMBRENO MD [facility] 02-05-2021 14:33-0400 Mean blood pressure 92 mm[Hg] DR BJ MEMBRENO MD [facility] 02-05-2021 14:33-0400 Systolic blood pressure 140 mm[Hg] DR BJ MEMBRENO MD [facility] 02-05-2021 14:18-0400 Body temperature 98.6 [degF] DR BJ MEMBRENO MD [facility] 02-05-2021 12:40-0400 Body temperature 96.06 [degF] DR BJ MEMBRENO MD [facility] 02-05-2021 12:35-0400 Body temperature 96.01 [degF] DR BJ MEMBRENO MD [facility] 02-05-2021 12:30-0400 Body temperature 95.97 [degF] DR BJ MEMBRENO MD [address] [place] [address] 02-04-2021 20:42-0400 Body height [address] BJ MEMBRENO MD [address] [place] [address] 02-04-2021 20:42-0400 Body weight 115.[address] BJ MEMBRENO MD [address] [place] [address] 02-04-2021 20:42-0400 Body weight 37.84 kg/m2 DR BJ MEMBRENO MD [address] [place] [address] 02-04-2021 15:24-0400 Body height [address] BJ MEMBRENO MD [facility] 02-04-2021 15:24-0400 Body weight 115.[address] BJ MEMBRENO MD [address] [place] [address] 02-04-2021 15:24-0400 Body weight 37.84 kg/m2 DR BJ MEMBRENO MD [facility] 02-03-2021 16:15-0400 Body height [address] BJ MEMBRENO MD [facility] 02-03-2021 16:15-0400 Body weight 115.[address] BJ MEMBRENO MD [facility] 08-30-2016 08:36-0400 BMI (Body Mass Index) 38.31 kg/m2 Harumi DeFinis [facility] Work Phone: 08-30-2016 08:36-0400 Body weight 121.11 kg Harumi DeFinis [facility] Work Phone: 08-30-2016 08:36-0400 BP Diastolic 72 mm[Hg] Harumi DeFinis [facility] Work Phone: 08-30-2016 08:36-0400 BP Systolic 130 mm[Hg] Harumi DeFinis [facility] Work Phone: 08-30-2016 08:36-0400 Height 177.8 cm Harumi DeFinis [facility] Work Phone: 08-30-2016 08:36-0400 Pulse (Heart Rate) 60 /min Harjose DeFinis [facility] Work Phone: 08-30-2016 08:36-0400 Respiratory Rate 18 /min Harjose DeFinis [facility] Work Phone: 08-30-2016 08:36-0400 Weight 121.11 kg RES Softwarejose DeFinfranklin [facility] Work Phone: 08-08-2015 08:54-0400 BMI (Body Mass Index) 38.62 kg/m2 [facility] Work Phone: 08-08-2015 08:54-0400 BP Diastolic 50 mm[Hg] [facility] Work Phone: 08-08-2015 08:54-0400 BP Systolic 104 mm[Hg] [facility] Work Phone: 08-08-2015 08:54-0400 BSA (Body Surface Area) 2.37 m2 [facility] Work Phone: 08-08-2015 08:54-0400 Pulse (Heart Rate) 60 /min Ghada Perrin RN [facility] Work Phone: 08-08-2015 08:54-0400 Respiratory Rate 20 /[facility] Work [facility]: 08-08-2015 08:54-0400 Weight 122.11 [facility] Work Phone: 03-26-2011 08:44-0500 Height 177.8 cm Ghada Perrin RN [facility] Work Phone: NEGATED: Highlighted [id number] 08:23-0500 BMI (Body Mass Index) 39.87 kg/m2 Stacey Overton AT [facility] Work Phone: NEGATED: Highlighted [id number] 08:23-0500 Body weight 122.02 kg Stacey Overton AT [facility] Work Phone: NEGATED: Highlighted [id number] 08:23-0500 Body weight 122 kg Stacey Overton AT [facility] Work Phone: NEGATED: Highlighted [id number] 08:23-0500 Heart rate 1+ Stacey Overton AT [facility] Work Phone: NEGATED: Highlighted [id number] 08:23-0500 Height 175.26 cm Stacey Overton AT [facility] Work Phone: NEGATED: Highlighted [id number] 08:23-0500 Height 175 cm Stacey Overton AT [facility] Work Phone: Encounters Encounter Date Encounter Type Care Provider Facility Start: 04-25-2023 End: 04-25-2023 ambulatory [facility] Facility:[facility] Start: 04-10-2023 End: 04-11-2023 ambulatory [facility] Facility:[facility] Start: 03-24-2023 Telephone encounter Burke Davis MD Work Phone: [place] [facility] Procedures Date Procedure Procedure Detail Performing Clinician Start: 03-10-2023 Urnls dip stick/tabl et rgnt auto w/o microscopy Burke Davis MD Work Phone: Start: 06-27-2021 Adult depression screening assessment Bharat Pfeiffer MD Work Phone: Start: 03-29-2021 Lipid 1996 panel - S yordy or Plasma Wily Mcghee MARKETING SENIOR RECRUITER.SETTLEMENT PROCESSOR Work Phone: Start: 02-05-2021 Posterior cervical s pine approach (qualifier value) DR BJ MEMBRENO MD Plan of Treatment Date Care Activity Detail Author Start: 06-12-2032 Urine microalbumin profile [facility] Start: 02-03-2031 Urine microalbumin profile DTA P,TDAP,TD (2 - Td or Tdap) [facility] Start: 11-29-2027 PROSTATE CANCER SCRE ENING DISCUSSION PROSTATE CANCER SCREENING DISCUSSION [facility] Start: 03-29-2026 Lipid 1996 panel - S yordy or Plasma Lipid Screening [facility] Start: 03-29-2026 LIPID SCREEN LIPID SCREEN [facility] Start: 03-18-2024 BP Controlled (<130/80) BP Controlle d (<130/80) [facility] Start: 12-28-2023 Annual PCP Team Android Software Engineer harinder Disease Visit Annual PCP Team Chronic Disease Visit [facility] Start: 11-29-2023 ANNUAL PCP TEAM INSURANCE EXECUTIVE HARINDER DISEASE VISIT ANNUAL PCP TEAM CHRONIC DISEASE VISIT [facility] Start: 10-30-2023 ANNUAL PCP TEAM INSURANCE EXECUTIVE HARINDER DISEASE VISIT ANNUAL PCP TEAM CHRONIC DISEASE VISIT [facility] Start: 10-30-2023 COLORECTAL CANCER SCREENING COLORECTAL CANCER SCREENING [facility] Immunizations Immunization Date Immunization Notes Care Provider Fa cility 06-12-2022 tetanus toxoid, redu dorian diphtheria toxoid, and acellular pertussis vaccine, adsorbed Bharat Pfeiffer MD Work Phone: [facility] 02-03-2021 tetanus toxoid, redu dorian diphtheria toxoid, and acellular pertussis vaccine, adsorbed Bharat Pfeiffer MD Work Phone: [facility] Payers Date Payer Category Payer Unknown [employer] PPO [id number] 2020-Present [phone] [address] [facility] [place] [address] P[place] [id number] 2020 Unknown [id number] 2020 Unknown [id number] 1965 Unknown [id number] 1965 Unknown [id number] 1965 Unknown [id number] Worker's Compensation [id number] Social History Date Type Detail Facility Sex Assigned At [facility] Start: 02-13-2021 Ex-smoker (finding) [facility] Start: 02-15-2021 End: 09-25-2022 Tobacco smoking status NHIS Never smoked tobacco [facility] Start: 02-15-2021 End: 09-25-2022 Tobacco use and exposure Smokeless tobacco non-user [facility] Start: 06-27-2021 End: 12-27-2022 Alcohol intake Current drinker of alcohol (finding) [facility] Start: 02-15-2021 History SDOH Alcohol Comment Rare alcohol usage [facility] Start: 1965 Sex Assigned At Not on file [facility] Start: 10-29-2022 End: 03-24-2023 History of Social function [facility] Work Phone: Start: 10-29-2022 End: 03-24-2023 Tobacco use panel [facility] Work Phone: Adult Depression Screening Assessment 0 [facility] Work Phone: Start: 01-28-2023 End: 03-24-2023 Alcohol intake Ex-drinker (finding) [facility] Start: 1965 Sex Assigned At Male [facility] Start: 03-18-2023 Gender identity Identifies as male gender (finding) [facility] Start: 03-18-2023 Sexual orientation Heterosexual (fin ding) [facility] NEGATED: Highlighted rowStart: 02-17-2020 End: 02-17-2020 Alcohol intake Alcohol intake [facility] Work Phone: NEGATED: Highlighted rowStart: 02-17-2020 End: 02-17-2020 Alcohol use Alcohol use [facility] Work Phone: NEGATED: Highlighted rowStart: 02-17-2020 End: 02-17-2020 Details of drug misuse behavior Details of drug misuse behavior [facility] Work Phone: NEGATED: Highlighted rowStart: 02-17-2020 End: 02-17-2020 Employment detail Employment detail [facility] Work Phone: NEGATED: Highlighted rowStart: 02-17-2020 End: 02-17-2020 Assertion Never smoker [facility] Work Phone: Medical Equipment Procedure Code Equipment Code Equipment Origin al Text Equipment Identifier Dates FDA Start: 02-05-2021 FDA Start: 02-05-2021 FDA Start: 02-05-2021 FDA Start: 02-05-2021 FDA Start: 02-05-2021 FDA Start: 02-05-2021 FDA Start: 02-05-2021 FDA Start: 02-05-2021 FDA Start: 02-05-2021 FDA Start: 02-05-2021 FDA Start: 02-05-2021 FDA Start: 02-05-2021 FDA Start: 02-05-2021 FDA Start: 02-05-2021 FDA Start: 02-05-2021 FDA Start: 02-05-2021 FDA Start: 02-05-2021 FDA Start: 02-05-2021 FDA Start: 02-05-2021 FDA Start: 02-05-2021 Clinical Notes 02-03-2021 to 04-25-2023 Telephone Encounter - Nick Vernonna - 03/24/2023 2:29 PM ESTTelephone Encounter - Burke Davis Jr., MD - 03/24/2023 1:14 PM Derick Burleson APRN.CNP - 03/18/2023 4:12 PM ESTRadiology Note Date & Type Note Facility 04-25-2023 Note HNO ID: [id number] Author: KAMLESH LEZAMA RT(R) Service: Radiology Author Type: Technologist Type: Progress Notes Filed: 04/25/2023 11:07 Note Text: Radiology Service Progress Note PATIENT NAME: Bharat Finch DATE OF SERVICE: April 25, 2023 TIME: 10:55 AM PATIENT IDENTITY VERIFICATION COMPLETED USING TWO (2) IDENTIFIERS: Name and Date of confirmed by patient verbally. FALL SCREENING: Has the patient had 2 falls in the last year or 1 fall with injury or currently using an Ambulatory Assistive Device (Walker, Cane, Wheelchair, Crutches, etc.)? No PATIENT GENDER DATA: Male PATIENT RELEVANT IMPLANT DATA REVIEWED: Not Applicable RADIOLOGY DEPARTMENT: General X-ray: Exam(s) Completed: Abdomen X-Ray: Abdomen PERIPHERAL IV DATA: Not applicable SIGNED BY: RT Jon(R) April 25, 2023 10:55 AM [facility] 04-10-2023 Note HNO ID: [id number] Author: Suly Bah APRN.KORINA Service: ? Author Type: Nurse Practitioner Type: Progress Notes Filed: 04/10/2023 3:14 PM Note Text: This is a 57 year old male who presents today with: Patient presents with: Acute Visit: cough and sore throat HISTORY OF PRESENT ILLNESS: Bharat Finch is a 57 year old male. Patient presents with: Acute Visit: cough and sore throat Here in the office for cough and sore throat. Started about 1 week ago with sore throat. Cough is productive cough, yellow mucus. Sob with cough. No fever or wheezing. Sinus congestion, clear nasal discharge. Has been taking tessalon perles and Mucinex without much improvement. PAST MEDICAL HISTORY: PAST MEDICAL HISTORY Diagnosis Date Atherosclerotic heart disease of [place] coronary artery without angina pectoris S/p CABG x3v 12/02/2008; stents 10/26/2018 Awareness under anesthesia Blood in semen 2022 CHF (congestive heart failure) (HCC) Erectile dysfunction Essential hypertension HLD (hyperlipidemia) ALICIA treated with BiPAP complaint Pacemaker 04/2022 for bradley/SSS [facility] [phone] PAF (paroxysmal atrial fibrillation) (HCC) PAST SURGICAL HISTORY Procedure Laterality Date ANESTH,PACEMAKER INSERTION N/A 05/10/2022 Pacemaker placed CABG (3) VEIN GRAFTS AND ARTERIAL GRAFT(S) 12/02/2008 CABG x3v SHEIKH-D2, Sequential SVG-LPDA and OM2 PAST SURGICAL HISTORY OF N/A 02/05/2021 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 MEDICATIONS Current Outpatient Medications Medication Sig benzonatate (TESSALON PERLES) 100 mg capsule Take 1 capsule by mouth three times a day as needed for cough. testosterone (ANDROGEL) 50 mg / 5 g (1%) Apply 1 Packet as directed once daily for 90 days. MULTAQ 400 mg tab TAKE 1 TABLET BY MOUTH TWICE DAILY WITH FOOD/MEAL lisinopril (ZESTRIL) 10 mg tablet Take 1 tablet by mouth once daily. ELIQUIS 5 mg tab(s) Take 1 tablet by mouth every 12 hours 6am/6pm. tiZANidine (ZANAFLEX) 4 mg tablet Take 4 mg by mouth every evening. HYDROcodone-acetaminophen (NORCO) 5-325 mg per tablet Take 1 tablet by mouth twice daily as needed. metoprolol tartrate, short acting, (LOPRESSOR) 50 mg tablet Take 1 tablet by mouth twice daily. simvastatin (ZOCOR) 40 mg tablet Take 1 tablet by mouth once daily. furosemide (LASIX) 40 mg tablet Take 1 tablet by mouth once daily. aspirin, enteric coated (ASPIRIN, ENTERIC COATED) 81 mg EC tablet Take 1 tablet by mouth once daily. No current facility-administered medications for this visit. No family history on file. Social History Tobacco Use Smoking status: Never Smokeless tobacco: Never Vaping Use Vaping Use: Never used Substance Use Topics Alcohol use: Not Currently Drug use: Not Currently Types: Marijuana REVIEW OF SYSTEMS GENERAL: No weight loss, malaise or fevers/chills HEENT: + Sore Throat NECK: Negative for lumps, goiter, pain and significant neck swelling RESPIRATORY: + Cough, SOB CARDIOVASCULAR: Negative for chest pain, leg swelling, orthopnea, or palpitations GI: No nausea, vomiting, or diarrhea/constipation. No hematochezia/melena. No heartburn or reflux symptoms. : No history of dysuria, frequency or incontinence MUSCULOSKELETAL: Negative for joint pain or swelling. SKIN: Negative for lesions, rash, and itching ENDOCRINE: Negative for cold or heat intolerance, polyuria, polydipsia and goiter NEURO: No history of headaches, syncope, paralysis, seizures or tremors MOOD: Negative for depression, anxiety, or suicidal ideation. EXAM: BP 110/66 Pulse 63 Temp 37.1 ?C (98.8 ?F) Resp 16 Wt 116.1 kg (256 lb) SpO2 99% BMI 37.80 kg/m? PHYSICAL EXAM: General Appearance: Well appearing, alert, in no acute distress, well-hydrated, well nourished. Skin: Skin color, texture, turgor normal, no suspicious rashes or lesions. Head: Normocephalic, no masses, lesions, tenderness or abnormalities. Eyes: Anicteric sclera. Pupils are equally round and reactive to light. Extraocular movements are intact. Ears: External ears normal, canals clear. TM's pearly eastman. Nose/Sinuses: Positive findings: mucosa erythematous and swollen, clear rhinorrhea. Oropharynx: Positive findings: mild oropharyngeal erythema. Neck: Supple, no adenopathy; thyroid symmetric, normal size, no bruits. Lungs: Lungs clear to auscultation. No wheezing, rhonchi, rales. Cough, Loss of voice. Heart: RRR without murmur, gallop, or rubs. No ectopy. Extremities: No deformities, edema, skin discoloration, clubbing or cyanosis. Good capillary refill. Peripheral Pulses: Normal, Capillary refill <2secs, strong peripheral pulses, (more content not included)... [facility] 03-24-2023 Note HNO ID: [id number] Author: Kelvin Stafford RN Service: Nursing Author Type: Registered Nurse Type: Nursing Progress Note Filed: 03/24/2023 2:09 PM Note Text: Device clinic bedside for pacemaker [facility] 03-24-2023 Note HNO ID: [id number] Author: Sriram Coleman APRN.INTERNAL COMMUNICATIONS INTERN Service: Anesthesiology Author Type: Nurse Oil Deliverer Type: Anesthesia Procedure Notes Filed: 03/24/2023 12:37 PM Note Text: ANESTHESIOLOGY PROCEDURE NOTE Airway General Information Procedure Start Time/Medication Administration: 03/24/2023 12:30 PM Patient location during procedure: OR Patient identity confirmed: arm band Staffing INTERNAL COMMUNICATIONS INTERN: Sriram Coleman APRN.INTERNAL COMMUNICATIONS INTERN Performed by: INTERNAL COMMUNICATIONS INTERN Indications and Patient Condition Indications for airway management: anesthesia Preoxygenated: yes anesthesia circuit Final Airway Details Final airway type: supraglottic airway Number of attempts at approach: 1 Final Supraglottic Airway: i-gel Size 5 Seal Adequate: yes SIGNATURE: Shemar Coleman APRN.INTERNAL COMMUNICATIONS INTERN PATIENT NAME: Bharat Finch DATE: March 24, 2023 TIME: 12:36 PM CSN: [id number] [facility] 03-24-2023 Miscellaneous Notes Patient still in hospital Called and left vox Re: appointment on 04/28/23 at 10am, green location, kub prior--ok'd by letitia Thank you Lexie [facility] or 03/24/23 Fu with me 1 month Kub prior ordered documented in this encounter [facility] 03-24-2023 Note HNO ID: [id number] Author: Chioma Barton RN Service: Nursing Author Type: Registered Nurse Type: Nursing Progress Note Filed: 03/24/2023 11:48 AM Note Text: Called device clinic talked to Noemí, she will be up to check device 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 [facility] 03-21-2023 Miscellaneous Notes Faxed. Michelle Shepherd Ma Form done Bharat Pfeiffer MD Type of letter/form/fax request - Androgens Enrollment Form Form received from fax on 1 floor and placed on desk () for completion. Completed form needs to be faxed to [facility] at [phone]. Requesting OV notes and labs be faxed along with completed from. (These have been printed and attached to form) Route to [place] when form completed for processing documented in this encounter [facility] 03-18-2023 Note HNO ID: [id number] Author: Derick Larsen APRN.CNP Service: ? Author Type: Nurse Practitioner Type: Progress Notes Filed: 03/18/2023 4:17 PM Note Text: Summary: PAT RED DOT Aptito JAYSHREE please follow up with cardiology optimization and review with anesthesia if okay to proceed - patient has PPM in place, HR was 124 BPM at [facility], EKG done today, please see description below. Cardiac optimization pending. EKG faxed to cardiology office. METs 5.5 Scheduled right ESWL with Dr. Davis 03/24/23 general anesthesia. Renal calculus, right Surgery scheduled 03/24/23 Presence of cardiac pacemaker Indicated for Sinoatrial node dysfunction/Sick sinus syndrome, in place since 05/10/22 at [facility] Patient states last device check around January, states feeling well since PPM placement CCC RN to follow up on last device check and recommendation for surgery Follow cardiology BRAYAN 07/30/22 Today at [facility], HR showed 124BPM, patient denies chest pain, SOB, palpitation. He states this AM got a call from cardiology that HR was high, was instructed to increase metoprolol dose to 50mg and lower the lisinopril dose. EKG done today showed HR 122BPM, Sinus tachycardia with PACs, T wave abnormality Called patient's cardiology office and spoke with Rosaura SO, she said PPM was running briefly A fib with RVR, hence the call to patient. Faxed EKG to Rosaura SO. Called and spoke Kathe at surgeon's office, she said cardiac clearance sent to cardiology office today. JAYSHREE to follow up with cardiac clearance. ALICIA treated with BiPAP Complaint with BiPAP Essential (primary) hypertension On lisinopril, Aldactone, metoprolol, Lasix Instructed to take BP medication DOS with sip of water, and hold lasix and aldactone DOS. Atrial fibrillation (HCC) Paroxymal. PPM in place Cardioversion 12/2021 Taking Eliquis, metoprolol [facility] ECHO 01/03/22 CHF (congestive heart failure) (HCC) Lasix 01/03/22 ECHO showed EF 55%, segmental dysfunction with persevered EF Follow cardiology BLE edema, per patient stable, L>R Coronary artery disease involving [place] heart S/p CABG x3v SHEIKH-D2, Sequential SVG-LPDA and OM2 12/02/2008; PCI to KAREN-OM2 w/2.5x16mm synergy and KAREN-Sequential SVG-OM2 and LPDA w/ 4.0x12mm synergy stent 10/26/2018 Taking metoprolol, simvastatin, ASA and Eliquis HLD (hyperlipidemia) Simvastatin Continue therapy perioperatively History of coronary artery bypass surgery CABG x3v SHEIKH-D2, Sequential SVG-LPDA and OM2 12/02/2008; PCI to KAREN-OM2 w/2.5x16mm synergy and KAREN-Sequential SVG-OM2 and LPDA w/ 4.0x12mm synergy stent 10/26/2018 [facility] 03-18-2023 History of Presen t illness Narrative Summary: PAT Images from the original note were not included. RED DOT CC JAYSHREE please follow up with cardiology optimization and review with anesthesia if okay to proceed - patient has PPM in place, HR was 124 BPM at [facility], EKG done today, please see description below. Cardiac optimization pending. EKG faxed to cardiology office. METs 5.5 Scheduled right ESWL with Dr. Davis 03/24/23 general anesthesia. Renal calculus, right Surgery scheduled 03/24/23 Presence of cardiac pacemaker Indicated for Sinoatrial node dysfunction/Sick sinus syndrome, in place since 05/10/22 at [facility] Patient states last device check around January, states feeling well since PPM placement CCC RN to follow up on last device check and recommendation for surgery Follow cardiology BRAYAN 07/30/22 Today at [facility], HR showed 124BPM, patient denies chest pain, SOB, palpitation. He states this AM got a call from cardiology that HR was high, was instructed to increase metoprolol dose to 50mg and lower the lisinopril dose. EKG done today showed HR 122BPM, Sinus tachycardia with PACs, T wave abnormality Called patient's cardiology office and spoke with Rosaura SO, she said PPM was running briefly A fib with RVR, hence the call to patient. Faxed EKG to Rosaura SO. Called and spoke Kathe at surgeon's office, she said cardiac clearance sent to cardiology office today. JAYSHREE to follow up with cardiac clearance. ALICIA treated with BiPAP Complaint with BiPAP Essential (primary) hypertension On lisinopril, Aldactone, metoprolol, Lasix Instructed to take BP medication DOS with sip of water, and hold lasix and aldactone DOS. Atrial fibrillation (HCC) Paroxymal. PPM in place Cardioversion 12/2021 Taking Eliquis, metoprolol [facility] ECHO 01/03/22 CHF (congestive heart failure) (HCC) Lasix 01/03/22 ECHO showed EF 55%, segmental dysfunction with persevered EF Follow cardiology BLE edema, per patient stable, L>R Coronary artery disease involving [place] heart S/p CABG x3v SHEIKH-D2, Sequential SVG-LPDA and OM2 12/02/2008; PCI to KAREN-OM2 w/2.5x16mm synergy and KAREN-Sequential SVG-OM2 and LPDA w/ 4.0x12mm synergy stent 10/26/2018 Taking metoprolol, simvastatin, ASA and Eliquis HLD (hyperlipidemia) Simvastatin Continue therapy perioperatively History of coronary artery bypass surgery CABG x3v SHEIKH-D2, Sequential SVG-LPDA and OM2 12/02/2008; PCI to KAREN-OM2 w/2.5x16mm synergy and KAREN-Sequential SVG-OM2 and LPDA w/ 4.0x12mm synergy stent 10/26/2018 documented in this encounter [facility] 03-18-2023 History and physical note Images from the original note were not included. HISTORY AND PHYSICAL EXAMINATION SERVICE DATE: 03/18/2023 SERVICE TIME: 7:34 PM PRIMARY CARE PHYSICIAN: Bharat Pfeiffer MD Assessment Patient has the following medical conditions which may affect emmanuel-operative course: Preop examination See note for medical conditions which may affect emmanuel-operative course addressed in visit today. Renal calculus, right Surgery scheduled 03/24/23 Presence of cardiac pacemaker Indicated for Sinoatrial node dysfunction/Sick sinus syndrome, in place since 05/10/22 at [facility] Patient states last device check around January, states feeling well since PPM placement CCC RN to follow up on last device check and recommendation for surgery Follow cardiology BRAYAN 07/30/22 Today at [facility], HR showed 124BPM, patient denies chest pain, SOB, palpitation. He states this AM got a call from cardiology that HR was high, was instructed to increase metoprolol dose to 50mg and lower the lisinopril dose. EKG done today showed HR 122BPM, Sinus tachycardia with PACs, T wave abnormality Called patient's cardiology office and spoke with Rosaura SO, she said PPM was running briefly A fib with RVR, hence the call to patient. Faxed EKG to Rosaura SO. Called and spoke Kathe at surgeon's office, she said cardiac clearance sent to cardiology office today. JAYSHREE to follow up with cardiac clearance. ALICIA treated with BiPAP Complaint with BiPAP Essential (primary) hypertension On lisinopril, Aldactone, metoprolol, Lasix Instructed to take BP medication DOS with sip of water, and hold lasix DOS. Atrial fibrillation (HCC) Paroxymal. PPM in place Cardioversion 12/2021 Taking Eliquis, metoprolol [facility] ECHO 01/03/22 CHF (congestive heart failure) (HCC) Lasix 01/03/22 ECHO showed EF 55%, segmental dysfunction with persevered EF Follow cardiology BLE edema, per patient stable, L>R Coronary artery disease involving [place] heart S/p CABG x3v SHEIKH-D2, Sequential SVG-LPDA and OM2 12/02/2008; PCI to KAREN-OM2 w/2.5x16mm synergy and KAREN-Sequential SVG-OM2 and LPDA w/ 4.0x12mm synergy stent 10/26/2018 Taking metoprolol, simvastatin, ASA and Eliquis HLD (hyperlipidemia) Simvastatin Continue therapy perioperatively History of coronary artery bypass surgery CABG x3v SHEIKH-D2, Sequential SVG-LPDA and OM2 12/02/2008; PCI to KAREN-OM2 w/2.5x16mm synergy and KAREN-Sequential SVG-OM2 and LPDA w/ 4.0x12mm synergy stent 10/26/2018 [place] Activity Status Index: METS: Climb a flight of stairs or walk up a hill (5.50 METs) DASI Score: 5.5 Patient denies any chest pain or undue shortness of breath with the above physical activity. Clinical Frailty Scale: 3. Well, with treated comorbid disease ARISCAT Score: Age: 51-80 Preoperative SpO2: >=96% Respiratory infection in the last month: No Preoperative anemia: No Surgical incision: peripheral Duration of surgery: <2 hrs Emergency procedure: No ARISCAT Score: 3 ANESTHESIA FINDINGS: Intubation History: No history of difficult intubation. No abnormal airway history Significant Anesthesia Considerations: none Airway History: No history of difficult airway No abnormal airway history I - PHYSICAL EVALUATION AIRWAY Patient intubated: No. DENTAL Dental findings: teeth intact. II - ANESTHESIA PLAN Anesthetic Plan: general Beta Mitra Monitoring Plan Post Procedure Analgesic Plan Implantable Devices: bypass graft, cardiac stent, plate and screws in the neck Pt instructed to take blood pressure and heart medications DOS. Pt instructed to contact surgeon and prescribing provider for instructions regarding blood thinners. UC ordered per surgeon. ARISCAT risk index interpretation 0 to 25 points: Low risk: 1.6% pulmonary complication rate 26 to 44 points: Intermediate risk: 13.3% pulmonary complication rate 45 to 123 points: High risk: 42.1% pulmonary complication rate Assessment/Plan Renal calculus, right [N20.0] PLAN Diagnosis: Planned Procedure: Procedure(s): EXTRACORPOREAL SHOCKWAVE LITHOTRIPSY UNILATERAL (Right) I spent a total of 40 minutes on the date of the service which included preparing to see the patient, [id number] patient care, completing clinical documentation, obtaining and/or reviewing separately obtained history, performing a medically appropriate examination, and counseling and educating the patient/family/caregiver. REASON FOR VISIT: Bharat Finch is a 57 year old male who is scheduled for Procedure(s): EXTRACORPOREAL SHOCKWAVE LITHOTRIPSY UNILATERAL (Right) at the request of @REFPROV2@ for routine H&P. My final recommendation will be communicated back to the requesting physician by way of shared medical record or letter. Subjective The patient has the following: ACTIVE PROBLEM LIST Injury of Neck Hypogonadism in Male Coronary Artery Disease Involving [place] Heart Ed (Erectile Dysfunction) of Organic Origin Preop Examination Renal Calculus, Right Essential (Primary) Hypertension Hld (Hyperlipidemia) History of Coronary Artery Bypass Surgery Alicia Treated With Bipap Presence of Cardiac Pacemaker Atrial Fibrillation (Hcc) Chf (Congestive Heart Failure) (Hcc) COVID-19 Immunization Status Overdue - Covid-19 Vaccine () Overdue since 12/13/2022 10/29/2022 Postponed until 10/30/2023 by Valentina Pickard Ma (Declined at this time) 08/10/2020 Imm Admin: COVID-19 original vaccine, age 12+ yr, monovalent (PFIZER-BIONTECH - PURPLE TOP) 07/17/2020 Imm Admin: COVID-19 original vaccine, age 12+ yr, monovalent (PFIZER-BIONTECH - PURPLE TOP) Only the first 3 history entries have been loaded, but more history exists. CHIEF COMPLAINT: The reason for this visit is to perform a comprehensive review of the patient's past medical history, assess their current health status and obtain any additional testing required based on anesthesia guidelines. We will also identify any potential anesthesia problems or contraindications to the planned procedure. HPI: Bharat Finch is a 57 year old male who presents to [facility] for a scheduled right ESWL with Dr. Davis. Patient c/o right renal calculi, 03/10/23 XR abdomen showed 9 mm calculus. Patient reports microscopic hematuria, no visible hematuria, denies dysuria, abdominal or flank pain. After discussing with surgeon, patient agrees to surgical intervention. Risk and benefits discussed by surgeon. Patient denies any other problems or concerns at this time. REVIEW OF SYSTEMS: General: Negative for: unintentional weight change and fever. Neurological: Negative for: delirium, dementia, seizures, TIA and strokes. Respiratory: Positive for: obstructive sleep apnea and CPAP/BiPAP compliant. Negative for: asthma, COPD, current cough, dyspnea, pneumonia within 6 weeks and URI < 2 weeks. Cardiovascular: Positive for: CAD (CABG x3v 2007, Stent 2018), CHF (preserved EF), hyperlipidemia and hypertension Negative for: abdominal aortic aneurysm, angina, atrial fibrillation, chest pain, DVT/PE and recent PA. GI: Negative for: abdominal pain, dysphagia, hepatitis, liver disease, nausea, vomiting and ETOH >2 drinks/day. : See HPI. Negative for: renal failure. Endocrine: Negative for: diabetes mellitus, hyperthyroidism, hypothyroidism and hyperparathyroidism. Hematology: Positive for: chronic anti-coagulation/platelet meds. Patient is on anti-coagulation/platelet medication(s): Aspirin and DOAC. Negative for: anemia, factor V Leiden, hemophilia and von Willebrand disease. Oncology: No history of CA metastasis, chemo within 30 days, or radiotherapy within 90 days. No history of oncological symptoms or problems. Psych: Negative for: anxiety and depression. Musculoskeletal: Negative for joint pain or swelling, back pain or muscle pain. Skin: Negative for lesions, rash and itching. PAST MEDICAL HISTORY Diagnosis Date Atherosclerotic heart disease of [place] coronary artery without angina pectoris S/p CABG x3v 12/02/2008; stents 10/26/2018 Blood in semen 2022 CHF (congestive heart failure) (HCC) Erectile dysfunction Essential hypertension HLD (hyperlipidemia) ALICIA treated with BiPAP complaint Pacemaker 04/2022 for bradley/SSS PAF (paroxysmal atrial fibrillation) (HCC) PAST SURGICAL HISTORY Procedure Laterality Date ANESTH,PACEMAKER INSERTION N/A 05/10/2022 Pacemaker placed CABG (3) VEIN GRAFTS & ARTERIAL GRAFT(S) 12/02/2008 CABG x3v SHEIKH-D2, Sequential SVG-LPDA and OM2 PAST SURGICAL HISTORY OF N/A 02/05/2021 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 No pertinent family history. Social History Tobacco Use Smoking status: Never Smokeless tobacco: Never Vaping Use Vaping Use: Never used Substance Use Topics Alcohol use: Not Currently Drug use: Not Currently Types: Marijuana Prior to Admission medications as of 03/18/23 1501 Medication Sig Last Dose Taking testosterone (ANDROGEL) 50 mg / 5 g (1%) Apply 1 Packet as directed once daily for 90 days. Taking Yes MULTAQ 400 mg tab TAKE 1 TABLET BY MOUTH TWICE DAILY WITH FOOD/MEAL Taking Yes lisinopril (ZESTRIL) 10 mg tablet Take 1 tablet by mouth once daily. Taking Yes ELIQUIS 5 mg tab(s) Take 1 tablet by mouth every 12 hours 6am/6pm. Taking Yes tiZANidine (ZANAFLEX) 4 mg tablet Take 4 mg by mouth every evening. Taking Yes HYDROcodone-acetaminophen (NORCO) 5-325 mg per tablet Take 1 tablet by mouth twice daily as needed. Taking Yes metoprolol tartrate, short acting, (LOPRESSOR) 50 mg tablet Take 1 tablet by mouth twice daily. Taking Yes simvastatin (ZOCOR) 40 mg tablet Take 1 tablet by mouth once daily. Taking Yes furosemide (LASIX) 40 mg tablet Take 1 tablet by mouth once daily. Taking Yes aspirin, enteric coated (ASPIRIN, ENTERIC COATED) 81 mg EC tablet Take 1 tablet by mouth once daily. Taking Yes iv contrast (will be provided with radiology test) CT Urogram WO/W Inject, intravenously, once for 1 dose.No IV access, insert saline lock prior to the beginning of sedation, infusion, injection of imaging exam. Discontinue saline lock post exam. If Pt. has a central line or IVAD, may access for administration according to line specific nursing protocol. Once exam is complete flush line and de-access according to line specific nursing protocol in the CT contrast administration guidelines link. benzonatate (TESSALON PERLE) 100 mg capsule Take 1 capsule by mouth three times daily as needed for cough. Patient not taking: Reported on 03/18/2023 Not Taking Tadalafil (CIALIS) 20 mg tab(s) Take 1 tablet by mouth as needed. Take as needed 30-60 minutes prior to sexual activity Patient not taking: Reported on 03/18/2023 Not Taking No medication comments found. ALLERGIES No Known Allergies Objective PHYSICAL EXAM: General: alert and oriented, healthy appearance and obese. Pertinent negatives noted - not distressed. Skin: normal color, no rash or lesions. HEENT: EOM intact and pupils equal round. No additional findings for patient's neck. Cardiovascular: Pulse characterized as tachy.Pertinent negatives noted - no murmur, no rub and no gallop. Respiratory: normal breath sounds, no wheezes or crackles. No chest wall deformity or tenderness. Abdomen: bowel sounds present and soft. Pertinent negatives noted - not tender. Extremities: Positive for edema (+1 pitting edema BLE, L>R). Neurological: normal cognition and motor skills. Gait normal. No weakness or sensory deficit. PAIN ASSESSMENT: Pain Pain Level: 0 VITALS: BP 99/72 Pulse 124 Temp 97.3 Resp 16 Ht 5' 9 (1.75m) Wt 241 lb (109.3kg) SpO2 97% BMI 35.57 kg/(m^2). Diagnostic tests reviewed for today's visit: Lab Value Units Date High Low HB No results within date range. HCT No results within date range. WBC No results within date range. PLT No results within date range. NA No results within date range. K No results within date range. GLUC No results within date range. BUN No results within date range. CREAT 1.22 mg/dL 01/28/2023 1.22 0.73 PTSEC No results within date range. INR No results within date range. APTT No results within date range. ALT No results within date range. AST No results within date range. TBILI No results within date range. TSH No results within date range. Lab Value Units Date High Low HCGQT No results within date range. UHCG No results within date range. HCG, BODY* No results within date range. Lab Value Units Date High Low ABORHD No results within date range. ABSCREEN No results within date range. No results found for: HBA1C No results found for this or any previous visit (from the past 8760 hour(s)). No results found for this or any previous visit (from the past 88324 hour(s)). Prepared for Surgery: CONSULTS: The following consults have been initiated at this time: cardiology (letter sent). Planned Anesthetic: general The Following Tests/Procedures Have Been Initiated: Orders Placed This Encounter ECG COMPLETE W INTERPRETATION Standing Status: Future Standing Expiration Date: 03/18/2024 Instructions Given to Patient: Instructions located in the after visit summary. Patient given verbal and written preop instructions and voices comprehension and compliance. SIGNATURE: Derick Larsen APRN.CNP PATIENT NAME: Bharat Finch DATE: March 18, 2023 TIME: 2:27 PM PAGER/CONTACT #: documented in this encounter [facility] 03-18-2023 Instructions Derick Larsen APRN.CNP - 03/18/2023 2:26 PM EST PATIENT PREOPERATIVE INSTRUCTIONS Your surgeon has scheduled for your procedure at this surgery center: [facility]: [phone], [address] [phone] Please read below carefully for your personalized instructions. Surgery Date: 03/24/23 Your surgeon's office will provide you with your ARRIVAL TIME for surgery. - If you have not received an arrival time by the afternoon before your surgery date, please follow up with your surgeon's office. - If you are scheduled for Friday surgery, please make sure you have your arrival time by Friday afternoon. - Please be aware that emergency situations arise, which may delay or change your surgical time. If this happens, your surgeon's office will notify you as soon as possible and regret any inconvenience. Dietary Restrictions: - No solid food after midnight. - You may have 12 ounces of clear liquids (water, clear juices such as apple juice or gatorade, carbonated beverages, clear tea, black coffee, jello) until 2 hours before scheduled arrival at facility. Please stop ALL clear liquids 2 hours prior to your ARRIVAL TIME. This is important because otherwise your surgery may have to be cancelled. Blood Thinning Medications: - Stop NSAIDS (Ibuprofen, Advil, Aleve, Motrin, Celebrex, Mobic, etc.) 7 days before surgery, or as directed by your surgeon. You may take Tylenol (Acetaminophen) or any of your pain medications that do not contain aspirin or NSAIDS as needed. IF YOU TAKE ANY OF THE FOLLOWING BLOOD THINNERS, PLEASE CONTACT YOUR SURGEON AND THE PHYSICIAN WHO PRESCRIBES IT FOR YOU IN ORDER TO GET PERIOPERATIVE INSTRUCTIONS SOON POSSIBLE. BLOOD THINNERS: Aspirin , Coumadin, Plavix, Eliquis, Pradaxa, Xarelto, Lovenox, Brilinta, Effient, Savaysa, Arixtra, etc - Stop Vitamin E, fish oil, multivitamins, Marijuana, CBD oil and other over the counter herbals and dietary supplements 7 days before surgery. - This would not apply to cancer patients who are prescribed Marinol or any other prescription form on marijuana or CBD. Medications: Pre-Surgery Med Instructions Medication Instructions testosterone (ANDROGEL) 50 mg / 5 g (1%) As usual MULTAQ 400 mg tab Take morning of surgery with sip of water, no other fluids lisinopril (ZESTRIL) 10 mg tablet Take morning of surgery with sip of water, no other fluids ELIQUIS 5 mg tab(s) As per surgeon's recommendation tiZANidine (ZANAFLEX) 4 mg tablet Continue until night before surgery HYDROcodone-acetaminophen (NORCO) 5-325 mg per tablet Okay to use day of surgery metoprolol tartrate, short acting, (LOPRESSOR) 50 mg tablet Take morning of surgery with sip of water, no other fluids simvastatin (ZOCOR) 40 mg tablet Continue until night before surgery furosemide (LASIX) 40 mg tablet Continue until night before surgery aspirin, enteric coated (ASPIRIN, ENTERIC COATED) 81 mg EC tablet As per surgeon's recommendation Approved medications to take the morning of surgery with a sip of water: BP, HCTZ, Heart, thyroid, psych, seizure, and pain medications excluding NSAIDS. Use inhalers as prescribed. Please bring inhalers. Phentermine (Ionamin) - hold 4 days prior to surgery Preoperative Instructions for Patients with Diabetes Mellitus: Preoperative Instructions for Patients with Diabetes Mellitus: Please follow up with the provider that manages your diabetes and how to prepare you for surgery. Do not take the following medications Morning of surgery: Trajenta, Metformin, Actos/Pioglitazone and Amaryl/Glimepiride. For the following Medications, please HOLD 2 DAYS PRIOR TO SURGERY: Glucotrol/Glipizide, Januvia/Sitagliptin, Glyburide, Prandin/Repaglinide, Starlix/Nateglinide, Symlin/Pramlintide For the following Medications, please HOLD 3 DAYS PRIOR TO SURGERY: Canagliflozin/Invokana, Dapagliflozin/Farxiga, Empagliflozin/Jardiance, Invokamet/ canagliflozin and metformin, Xigduo XR/ dapagliglozin and metformin, Glyxambi/ empagliflozin and metformin, Syndardy/ empagliflozin and metformin For the following Medications, please HOLD 4 DAYS PRIOR TO SURGERY: Ertugliflozin/Steglatro For the following Medications, please HOLD 7 DAYS PRIOR TO SURGERY: GLP-1 AGONIST: Adlyxin (lixisenatide), Bydureon BCise (exenatide suspension), Byetta (exenatide), Mounjaro (tirzepatide), Ozempic (semaglutide injection), Rybelsus (semaglutide tablets), Tanzeum (albiglutide), Trulicity (dulaglutide), Victoza (liraglutide), Wegovy (semaglutide), Saxenda (liraglutide) Insulin Medication Instructions: Please follow up with the provider that manages your Insulin and how to prepare you for surgery. If you start any new medications after today's visit, please contact the surgeon's office. Important Reminders: - If you have a stimulator, implant or pump that requires a remote, please bring the remote with you day of surgery. - If you use CPAP/BIPAP, bring the machine with you to the surgery center. - If you are prescribed inhalers for breathing, continue using them AND bring them to the surgery center. - Candy, mints, gum and tobacco products are NOT permitted the morning of surgery. - Hearing aids, dentures and glasses may be worn the morning of surgery. - NO jewelry, body piercings, makeup, hairpins or contacts are to be worn the day of surgery. - Oral hygiene and a shower or bath is required the evening before or the morning of surgery. - NO lotion, creams, powders or deodorants on the skin the day of surgery. - Wear loose, comfortable clothing that will accommodate bandages. - Your length of stay will be determined by your surgeon. - You will need to have someone else (Family or friend) to drive you home once discharged from the hospital. You cannot drive yourself home after surgery. - YOU MUST HAVE A RESPONSIBLE MENTAL HYGIENIST TAKE YOU HOME. A PROCUREMENT OFFICER, CAB OR UBER MENTAL HYGIENIST CANNOT BE MADE A RESPONSIBLE MENTAL HYGIENIST. - If you are undergoing an outpatient procedure you must have someone drive you home and stay with you for the first 24 hours. Your ride home must be at least 18 years old or older. Your surgery may be cancelled if you do not have someone to drive you home or take care of you. - You cannot stay in a hotel alone after an outpatient surgery. - It is recommended patients have a 72-hour period between getting their vaccine and the date of surgery. Visitation: Visitors to any [facility] facility: Any individual who is sick should not visit. Visitors to patients with COVID-19 must follow these guidelines, which include wearing a mask, eye protection, gown and gloves. [facility] [place] Visitation hours: 7 AM to 9 PM. Pre-Surgery Unit - Patients may have up to 2 visitors at a time. PACU recovery Unit - Patients may have up to 1-2 visitors at a time. [facility] [place] Pre-Surgery area - 1 visitor at a time due to limited space. PACU recovery area - No visitors due to limited space unless patient is a minor due to limited space. If you develop symptoms such as a fever, cold, or flu, or have other changes to your health within TWO DAYS of scheduled surgery or the morning of surgery, please contact the surgeon's office. Personal Belongings: - Leave ALL valuables and money at home or with family members. - You will need a form of ID and insurance card to check in the morning of surgery. - If you do not have a copy of advance directives on file with us, please bring a copy with you on the day of surgery. If you already have an Advance Directive, please fax a copy to [phone] or email to for it to be added to your chart. If you do not have an Advance Directive, you can find the appropriate form and more information at [email or web address]. We recommend that you complete the Advance Directive form found on the website and bring it with you the day of your surgery. It can be witnessed and scanned into your chart that day. IF you are having a TOTAL KNEE, HIP REPLACEMENT OR ORTHOPEDIC SURGERY: - Orthopedic patients at [facility] listed as outpatient, please bring walker into the building. - Orthopedic patients at [facility] listed as to be admitted, please leave walkers in the car or with a family member. - Orthopedic patients at [facility], please bring the walker into the building day of surgery. Derick Larsen APRN.CNP 03/18/23 documented in this encounter [facility] 03-18-2023 Miscellaneous Notes OK to refill as ordered Bharat Pfeiffer MD Last OV: 12/27/22 Next OV: None, pt was to have labs done in 3 months from last wellness visit, completed in January. Was to f/u, was seen acutely. Last Rx: 10/29/22 30 packet w/2 refills. Pt needs appt. Valentina Pickard Ma Patient has been identified by name and date of : Yes Requested Prescriptions Pending Prescriptions Disp Refills testosterone (ANDROGEL) 50 mg / 5 g (1%) 30 Packet 2 Sig: Apply 1 Packet as directed once daily for 90 days. RX INSTRUCTIONS: Patient aware RX will be sent to pharmacy. No need to notify patient. Suellen Henriquez documented in this encounter [facility] 03-10-2023 Note HNO ID: [id number] Author: Burke Davis Jr., MD Service: ? Author Type: Physician Type: Procedures Filed: 03/10/2023 11:16 AM Note Text: CYSTOSCOPY PROCEDURE NOTE: Bharat Finch is a 57 year old male who presents with hematuria gross for cystoscopy. Pt ID verified with patient: Yes Fire risk assessment done Procedure verified with patient: Yes Procedure confirmed with physician and sales support advisor: Yes UNIVERSAL PROTOCOL / SAFETY CHECKLIST Procedure to be Performed: cysto Sign In: A Moment of CARE was completed. Personnel directly involved with the procedure wore the appropriate PPE (Personal Protective Equipment). Patient/Surrogate Stated/Verified: PATIENT VERIFIED(optional for EMERGENT procedures): Patient name, Date of , Relevant allergies, and The intended procedure Time Out Communication: Intended patient and procedure match the source documents. Consent documented and matches the intended procedure. Sign Out: SIGN OUT (optional for EMERGENT procedures): No specimen collected. Burke Davis Jr, MD Pre procedure dx: gross hematuria Post procedure dx: same A urinalysis was performed revealing no evidence of infection. The benefits, risks, alternatives of the cystoscopy procedure and personnel were discussed with the patient. The verbal consent was obtained and the patient agrees to proceed. Procedure: The patient was placed on the procedure table in the supine position and prepped and draped in the usual sterile fashion. 2% Lidocaine Jelly was placed per urethra as an anesthetic in the standard fashion. Once adequate local anesthesia was achieved, the tip of the flexible cystoscope was carefully placed into the urethra under direct visual guidance. The scope was negotiated through the pendulous urethra to the level of the bulbar urethra with no evidence of stricture. The verumontanum came into view and the scope was negotiated through the prostatic urethra which showed evidence of a patent prostatic urethra. The bladder was entered and careful larsen endoscopy was carried out. The posterior, superior and lateral mercado and dome of the bladder were all well visualized and the scope was retroflexed upon itself. The findings were consistent with no evidence of bladder mucosal pathology. At the conclusion of the procedure, the flexible cystoscope was removed atraumatically. The patient tolerated the procedure without complications. Patient was given standard post-procedure instructions, and was directed to complete the course of oral antibiotics and increase oral fluid intake as directed. ASSESSMENT/PLAN: Heme frankel 7mm R renal calc - 1000 HU Kub right ESWL All r/b/a of surgery discussed, infection, bleeding, damage to nearby structures, repeat surgery, stent placement, steinstrasse, kidney damage, surgery failure, , heart attack, stroke, deep vein thrombosis, pulmonary embolus. Patient verbalized understanding and agrees to proceed. Burke Davis Jr, MD [facility] 03-10-2023 Note HNO ID: [id number] Author: Zoë Mcrae RT(R) Service: Radiology Author Type: Technologist Type: Progress Notes Filed: 03/10/2023 11:14 AM Note Text: Summary: XRAY Radiology Service Progress Note PATIENT NAME: Bharat Finch DATE OF SERVICE: March 10, 2023 TIME: 11:14 AM PATIENT IDENTITY VERIFICATION COMPLETED USING TWO (2) IDENTIFIERS: Name and Date of confirmed by patient verbally. FALL SCREENING: Has the patient had 2 falls in the last year or 1 fall with injury or currently using an Ambulatory Assistive Device (Walker, Cane, Wheelchair, Crutches, etc.)? No PATIENT GENDER DATA: Male PATIENT RELEVANT IMPLANT DATA REVIEWED: Not Applicable RADIOLOGY DEPARTMENT: General X-ray: Exam(s) Completed: Abdomen X-Ray: Abdomen PERIPHERAL IV DATA: Not applicable SIGNED BY: RT Krystal(R) March 10, 2023 11:[address] [facility] 03-10-2023 Procedure note CYSTOSCOPY PROCEDURE NOTE: Bharat Finch is a 57 year old male who presents with hematuria gross for cystoscopy. Pt ID verified with patient: Yes Fire risk assessment done Procedure verified with patient: Yes Procedure confirmed with physician and sales support advisor: Yes UNIVERSAL PROTOCOL / SAFETY CHECKLIST Procedure to be Performed: cysto Sign In: A Moment of CARE was completed. Personnel directly involved with the procedure wore the appropriate PPE (Personal Protective Equipment). Patient/Surrogate Stated/Verified: PATIENT VERIFIED(optional for EMERGENT procedures): Patient name, Date of , Relevant allergies, and The intended procedure Time Out Communication: Intended patient and procedure match the source documents. Consent documented and matches the intended procedure. Sign Out: SIGN OUT (optional for EMERGENT procedures): No specimen collected. Burke Davis Jr, MD Pre procedure dx: gross hematuria Post procedure dx: same A urinalysis was performed revealing no evidence of infection. The benefits, risks, alternatives of the cystoscopy procedure and personnel were discussed with the patient. The verbal consent was obtained and the patient agrees to proceed. Procedure: The patient was placed on the procedure table in the supine position and prepped and draped in the usual sterile fashion. 2% Lidocaine Jelly was placed per urethra as an anesthetic in the standard fashion. Once adequate local anesthesia was achieved, the tip of the flexible cystoscope was carefully placed into the urethra under direct visual guidance. The scope was negotiated through the pendulous urethra to the level of the bulbar urethra with no evidence of stricture. The verumontanum came into view and the scope was negotiated through the prostatic urethra which showed evidence of a patent prostatic urethra. The bladder was entered and careful larsen endoscopy was carried out. The posterior, superior and lateral mercado and dome of the bladder were all well visualized and the scope was retroflexed upon itself. The findings were consistent with no evidence of bladder mucosal pathology. At the conclusion of the procedure, the flexible cystoscope was removed atraumatically. The patient tolerated the procedure without complications. Patient was given standard post-procedure instructions, and was directed to complete the course of oral antibiotics and increase oral fluid intake as directed. ASSESSMENT/PLAN: Heme frankel 7mm R renal calc - 1000 HU Kub right ESWL All r/b/a of surgery discussed, infection, bleeding, damage to nearby structures, repeat surgery, stent placement, steinstrasse, kidney damage, surgery failure, , heart attack, stroke, deep vein thrombosis, pulmonary embolus. Patient verbalized understanding and agrees to proceed. Burke Davis Jr, MD documented in this encounter [facility] 02-26-2023 Miscellaneous Notes Pt confirmed cysto with Dr. Davis [place] 03/10/23. Selena Left vm pt needs scheduled for cysto for hematuria. Ref by Jace Joaquin. Selena Order placed 02/10/2023 under Procedures. Chloé, dottie is needed please. Georgiana Wyatt LPN Patient states he missed a call to schedule cystoscopy. He is available at [phone] this afternoon. Sofie Garcia LPN Yes it always done after the urine results are back since they only take 2-3 days , but its not dependent on urine tests, it is part of the work-up , please have him schedule it it is the most important part. RADHA Jamison MT, PA-C Called patient. Verified name and date of . Patient informed- verbalizes understanding. Patient states he understood the cystoscopy would be done once these results came back. Georgiana Wyatt LPN Please let patient know small kidney stone in kidney no obstruction. Could be cause of hematuria but still needs Cystoscopy bu no appointment I could see. RADHA Jamison MT, PA-C IMPRESSION: 7 mm RIGHT intrarenal calculus. No renal mass or upper urothelial tract lesion. documented in this encounter [facility] 02-18-2023 Note HNO ID: [id number] Author: Georgiana Acosta RT(R) Service: ? Author Type: Submersible Pilot Type: Progress Notes Filed: 02/18/2023 3:29 PM Note Text: Radiology Service Progress Note DATE OF SERVICE: February 18, 2023 TIME: 3:28 PM PATIENT IDENTITY VERIFICATION COMPLETED USING TWO (2) STANDARD IDENTIFIERS: Name and Date of confirmed by patient verbally. FALL SCREENING: Has the patient had 2 falls in the last year or 1 fall with injury or currently using an Ambulatory Assistive Device (Walker, Cane, Wheelchair, Crutches, etc.)? No PATIENT GENDER DATA: Male PATIENT RELEVANT IMPLANT DATA REVIEWED: Yes ALLERGIES: Reviewed and unchanged CONTRAST ALLERGY: NO. EXAM: CT -CONTRAST INDUCED NEPHROPATHY RISK FACTORS: Not applicable CREATININE: Creatinine Date Value Ref Range Status 01/28/2023 1.22 0.73 - 1.22 mg/dL Final Estimated Glomerular Filtration Rate Date Value Ref Range Status 01/28/2023 69 >=60 mL/min/1.73m? Final Comment: Estimated Glomerular Filtration Rate (eGFR) is calculated using the 2020 CKD-EPI creatinine equation. This equation utilizes serum creatinine, sex, and age as parameters. The creatinine assay has traceable calibration to isotope dilution-mass spectrometry. Refer to KDIGO guidelines for clinical interpretation. In patients with unstable renal function, e.g. those with acute kidney injury, the eGFR may not accurately reflect actual GFR. P.O.C.T. RESULTS: POC done: Yes, See Lab Tab February 18, 2023 TREATMENT: N/A PERIPHERAL IV DATA: Ambulatory: A peripheral IV was started in the Left hand with a Angio cath: 22 gauge. RADIOLOGY DEPARTMENT: CT; Exam(s) Completed: Abdomen/Pelvis SIGNATURE: RT Tom(R) PATIENT NAME: Bharat Finch DATE: February 18, 2023 TIME: 3:28 PM [facility] 01-31-2023 Miscellaneous Notes Left vm pt needs scheduled for cysto with any provider for gross hematuria. CT 02/18. Ref by Jace Joaquin. Selena documented in this encounter [facility] 01-28-2023 Note HNO ID: [id number] Author: Chloé Joaquin PA-C Service: ? Author Type: Physician Gas Fitter Type: Progress Notes Filed: 01/28/2023 9:20 AM Note Text: [facility] NEW PATIENT CLINIC NOTE SERVICE DATE: 01/28/2023 SERVICE TIME: 9:04 AM NAME: Bharat Finch CHIEF COMPLAINT: Gross Hematuria HISTORY OF PRESENT ILLNESS: Bharat Finch is a 57 year old male presenting with Gross Hematuria and recent UTI with E Coli The patient reports he has had a few episodes of hematospermia for 3 weeks then over the weekend noticed blood in urine and at end of urination stream Patient with A-Fib and on Blood thinners managed by Dr. Enriquez LUTS: DYSURIA: no URGENCY: No FREQUENCY:4 per day NOCTURIA: 0 per night STRAINING TO VOID: No EMPTIES COMPLETELY: Yes UTI: 1 past 12 months GROSS HEMATURIA: yes UA DIPSTICK POSITIVE ONLY: no Other symptoms: LABS: Testosterone (ng/dL) Date Value 03/29/2021 202 03/02/2021 156 Testosterone Free (ng/dL) Date Value 03/29/2021 6.06 03/02/2021 4.52 PSA (ng/mL) Date Value 11/28/2022 0.32 No results found for: HCT PSA (ng/mL) Date Value 11/28/2022 0.32 No results found for: CREAT . MEDICATIONS: MULTAQ 400 mg tab TAKE 1 TABLET BY MOUTH TWICE DAILY WITH FOOD/MEAL lisinopril (ZESTRIL) 10 mg tablet Take 1 tablet by mouth once daily. ELIQUIS 5 mg tab(s) Take 1 tablet by mouth every 12 hours 6am/6pm. spironolactone (ALDACTONE) 25 mg tablet Take 1 tablet by mouth every afternoon. tiZANidine (ZANAFLEX) 4 mg tablet Take 4 mg by mouth every evening. HYDROcodone-acetaminophen (NORCO) 5-325 mg per tablet Take 1 tablet by mouth twice daily as needed. testosterone (ANDROGEL) 50 mg / 5 g (1%) Apply 1 Packet as directed once daily for 90 days. metoprolol tartrate, short acting, (LOPRESSOR) 50 mg tablet Take 1 tablet by mouth twice daily. simvastatin (ZOCOR) 40 mg tablet Take 1 tablet by mouth once daily. furosemide (LASIX) 40 mg tablet Take 1 tablet by mouth once daily. clopidogrel (PLAVIX) 75 mg tablet Take 1 tablet by mouth once daily. aspirin, enteric coated (ASPIRIN, ENTERIC COATED) 81 mg EC tablet Take 1 tablet by mouth once daily. benzonatate (TESSALON PERLE) 100 mg capsule Take 1 capsule by mouth three times daily as needed for cough. Tadalafil (CIALIS) 20 mg tab(s) Take 1 tablet by mouth as needed. 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 SOCIAL HISTORY: Social Connections: Not on file REVIEW OF SYSTEMS: GENERAL: No fever, chills, weight loss, or fatigue. ENMT: Negative CARDIOVASCULAR:NO CHEST PAIN, PALPITATIONS, ANKLE EDEMA RESPIRATORY: No chronic cough, wheezing, dyspnea, hemoptysis. GENITOURINARY: SEE HPI MUSCULOSKELETAL:NO CHRONIC BACK PAIN, ARTHRITIS, CHRONIC NECK PAIN SKIN: NO VARICOSE VEINS, RASH, ABNORMAL ITCHING HEME/LYMPH/IMMUNE:Negative for prolonged bleeding, bruising easily or swollen nodes NEUROLOGICAL: NO HEADACHES, NUMBNESS, SEIZURES, STROKE DIABETES: no All other systems reviewed and are negative PHYSICAL EXAMINATION: Blood pressure 136/84, pulse 60, temperature 36.2 ?C (97.2 ?F), temperature source Temporal, resp. rate 12, height 175.3 cm (5' 9 ), weight 111 kg (244 lb 12.8 oz), SpO2 99 %. GENERAL: WNL nutrition, no deformities, healthy appearing NEURO: Awake, alert and oriented x 3 and Normal gait PSYCH: No signs of depression, anxiety, or agitation ENMT (Ear, Nose, Mouth, Throat): No masses, adenopathy, icterus. Thyroid nonpalpable RESP: NL effort, no retractions or purse-lip breathing. CV: No extremity swelling, varices, edema, pallor, erythema GASTROINTESTINAL: Soft, nontender, nondistended, no masses. HERNIAS: None SKIN: No rash, lesions No palpable lymphadenopathy MUSCULOSKELETAL: Extremities normal. No deformities, edema, clubbing or skin discoloration. PROBLEM LIST REVIEW: Yes LABS: Results for orders placed or performed in visit on 01/28/23 UA DIP, URINE (POC) Result Value Ref Range GLUCOSE UA (POCT) 500 (A) Negative mg/dL BILIRUBIN UA (POCT) Negative Negative KETONE UA (POCT) Negative Negative mg/dL SPECIFIC GRAVITY UA (POCT) 1.025 1.005 - 1.030 HEMOGLOBIN/BLOOD UA (POCT) Trace-intact (A) Negative PH UA (POCT) 5.5 4.5 - 8.0 PROTE (more content not included)... [facility] 01-28-2023 Note HNO ID: [id number] Author: Georgiana Wyatt LPN Service: ? Author Type: ? Type: Progress Notes Filed: 01/28/2023 9:20 AM Note Text: Verified name and date of . CC Post Void Residual HPI: Bharat Finch is a 57 year old male. The patient is here now for an appointment with RADHA Jamison, CHRISTAL, PA-COV. Procedure: Explained procedure to patient and verbalizes understanding. Performed a PVR. Patient urinated and instructed to empty bladder as much as possible just prior to having PVR done using bladder ultrasound scanner. Results of scan: 0 mL The patient tolerated the procedure well. Plan: Appointment with Chloé. [facility] 12-27-2022 Note HNO ID: [id number] Author: Wily Mcghee APRN.KORINA Service: ? Author Type: Nurse Practitioner Type: Progress Notes Filed: 12/27/2022 1:40 PM Note Text: Chief Complaint Patient presents with: Follow Up For: Blood in semen HPI Bharat Finch is a 57 year old male who presents here today for Above Complaints. Patient is here for follow-up for complaint of blood in semen. This has been ongoing for 1 to 2 months at most. Varying in amounts. Initial evaluation revealed UTI that was adequately treated and repeat UA demonstrated no infection. Patient states that semen is in varying amounts with blood. Describes most recently a rust colored appearance. Denies any dysuria, hematuria, urgency, frequency. May be needing to urinate earlier in the morning than usual. Does not follow with urology. He is on Eliquis and Plavix. Past medical history, appointments, medications, allergies reviewed. EXAM: BP 128/78 Pulse 60 Resp 16 Wt 110 kg (242 lb 6.4 oz) SpO2 99% BMI 34.78 kg/m? General Appearance: Well appearing, alert, in no acute distress, well-hydrated, well nourished.. Component Latest Ref Rng AND Units 11/28/2022 12/20/2022 Color Yellow Yellow Colorless Clarity Clear Cloudy (A) Clear Glucose, Urine Trace, Negative Trace 2+ (A) Bilirubin, Urine Negative Negative Negative Ketones, Urine Trace, Negative Negative Negative Specific [place], Ur 1.005 - 1.030 1.026 1.007 Hemoglobin/Blood,Ur Negative, Trace 3+ (A) Negative pH, Urine 5.0 - 8.0 5.5 6.0 Protein, Urine Trace, Negative 1+ (A) Negative Urobilinogen Negative Negative Negative Nitrites Negative Negative Negative Leukest Negative, 25 Natasha/uL 250 Natasha/uL (A) Negative WBC, Urine 0-5 /HPF >25 /HPF (A) 0-5 /HPF RBC, Urine 0-3 /HPF >25 /HPF (A) 0-3 /HPF PSA <2.60 ng/mL 0.32 Culture >=100,000 CFU/ml Escherichia coli (A) ASSESSMENT/PLAN: 1. Blood in semen - ICD9: 608.82, ICD10: R36.1 (primary diagnosis) -Refer to urology for further evaluation. We will defer UA today in office as he had one most recently within the past 7 days. - CONSULT TO UROLOGY 2. Recurrent UTI (urinary tract infection) - ICD9: 599.0, ICD10: N39.0 -Resolved Wily Mcghee APRN.SETTLEMENT PROCESSOR RTO as needed. This note was partly generated using Sunlot voice recognition dictation and may contain some misspelled or inaccurate words missed on review. [facility] 12-27-2022 History of Presen t illness Narrative Chief Complaint Patient presents with: Follow Up For: Blood in semen HPI Bharat Finch is a 57 year old male who presents here today for Above Complaints. Patient is here for follow-up for complaint of blood in semen. This has been ongoing for 1 to 2 months at most. Varying in amounts. Initial evaluation revealed UTI that was adequately treated and repeat UA demonstrated no infection. Patient states that semen is in varying amounts with blood. Describes most recently a rust colored appearance. Denies any dysuria, hematuria, urgency, frequency. May be needing to urinate earlier in the morning than usual. Does not follow with urology. He is on Eliquis and Plavix. Past medical history, appointments, medications, allergies reviewed. EXAM: BP 128/78 Pulse 60 Resp 16 Wt 110 kg (242 lb 6.4 oz) SpO2 99% BMI 34.78 kg/m General Appearance: Well appearing, alert, in no acute distress, well-hydrated, well nourished.. Component Latest Ref Rng & Units 11/28/2022 12/20/2022 Color Yellow Yellow Colorless Clarity Clear Cloudy (A) Clear Glucose, Urine Trace, Negative Trace 2+ (A) Bilirubin, Urine Negative Negative Negative Ketones, Urine Trace, Negative Negative Negative Specific [place], Ur 1.005 - 1.030 1.026 1.007 Hemoglobin/Blood,Ur Negative, Trace 3+ (A) Negative pH, Urine 5.0 - 8.0 5.5 6.0 Protein, Urine Trace, Negative 1+ (A) Negative Urobilinogen Negative Negative Negative Nitrites Negative Negative Negative Leukest Negative, 25 Natasha/uL 250 Natasha/uL (A) Negative WBC, Urine 0-5 /HPF >25 /HPF (A) 0-5 /HPF RBC, Urine 0-3 /HPF >25 /HPF (A) 0-3 /HPF PSA <2.60 ng/mL 0.32 Culture >=100,000 CFU/ml Escherichia coli (A) ASSESSMENT/PLAN: 1. Blood in semen - ICD9: 608.82, ICD10: R36.1 (primary diagnosis) -Refer to urology for further evaluation. We will defer UA today in office as he had one most recently within the past 7 days. - CONSULT TO UROLOGY 2. Recurrent UTI (urinary tract infection) - ICD9: 599.0, ICD10: N39.0 -Resolved Wily Mcghee APRN.CNP RTO as needed. This note was partly generated using Sunlot voice recognition dictation and may contain some misspelled or inaccurate words missed on review. documented in this encounter [facility] 12-02-2022 Miscellaneous Notes Pt notified via [employer]. Michelle Shepherd Ma/ His urine culture does show signs of an infection, so I have ordered 10 days of Bactrim DS to take twice daily. I would like to have him repeat a urine test in 2 weeks to make sure the infection has cleared. Bharat Pfeiffer MD Patient requesting PCP to advise on recent lab tests from 11/28, when able. Thank you. documented in this encounter [facility] 11-28-2022 Note HNO ID: [id number] Author: Bharat Pfeiffer MD Service: ? Author Type: Physician Type: Progress Notes Filed: 11/28/2022 4:36 PM Note Text: Chief Complaint Patient presents with: Blood In Sperm HPI Bharat Finch is a 57 year old male who presents here today for an acute visit. Pt called into the office on 11/27/22 and spoke with a triage nurse about blood in his semen. Pt reports seeing blood in his semen for the past 1-2 weeks. Most recent episode occurred on 11/26/22 after having sexual intercourse. One other episode occurring about 1 week prior. Denies any pain with ejaculation. Reports that it is pinkish/red in color. Denies any pain, no difficulty passing urine, no urinary symptoms, hematuria, pain with urination, denies fever or abdominal pain. No known injury that he's aware of. Pt just wants to make sure there's nothing more concerning. Past medical history, appointments, medications, allergies reviewed. Previous Medical History No past medical history on file. 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 Patient Allergies ALLERGIES Not on File Current Medications Current Outpatient Medications on File Prior to Visit Medication Sig MULTAQ 400 mg tab TAKE 1 TABLET BY MOUTH TWICE DAILY WITH FOOD/MEAL lisinopril (ZESTRIL) 10 mg tablet Take 1 tablet by mouth once daily. ELIQUIS 5 mg tab(s) Take 1 tablet by mouth every 12 hours 6am/6pm. spironolactone (ALDACTONE) 25 mg tablet Take 1 tablet by mouth every afternoon. tiZANidine (ZANAFLEX) 4 mg tablet Take 4 mg by mouth every evening. HYDROcodone-acetaminophen (NORCO) 5-325 mg per tablet Take 1 tablet by mouth twice daily as needed. testosterone (ANDROGEL) 50 mg / 5 g (1%) Apply 1 Packet as directed once daily for 90 days. benzonatate (TESSALON PERLE) 100 mg capsule Take 1 capsule by mouth three times daily as needed for cough. Tadalafil (CIALIS) 20 mg tab(s) Take 1 tablet by mouth as needed. Take as needed 30-60 minutes prior to sexual activity metoprolol tartrate, short acting, (LOPRESSOR) 50 mg tablet Take 1 tablet by mouth twice daily. simvastatin (ZOCOR) 40 mg tablet Take 1 tablet by mouth once daily. furosemide (LASIX) 40 mg tablet Take 1 tablet by mouth once daily. clopidogrel (PLAVIX) 75 mg tablet Take 1 tablet by mouth once daily. aspirin, enteric coated (ASPIRIN, ENTERIC COATED) 81 mg EC tablet Take 1 tablet by mouth once daily. No current facility-administered medications on file prior to visit. Social History Social History Tobacco Use Smoking status: Never Smokeless tobacco: Never Substance Use Topics Alcohol use: Yes Comment: Rare alcohol usage Drug use: Not Currently EXAM: BP 124/82 (BP Site: Left Arm, BP Position: Sitting, BP Cuff Size: Regular Adult) Pulse 60 Resp 16 Wt 109.3 kg (241 lb) BMI 34.58 kg/m? General Appearance: Well appearing, alert, in no acute distress, well-hydrated, well nourished. and Obese. Health Maintenance List HEPATITIS B(1 of 3 - 3-dose series) Never done DIABETES SCREEN Never done PROSTATE CANCER SCREENING DISCUSSION Never done LDL CHOLESTEROL due on 03/29/2022 COLORECTAL CANCER SCREENING due on 10/30/2023 HIV SCREENING due on 10/30/2023 SHINGRIX VACCINE(1 of 2) due on 10/30/2023 COVID-19 VACCINE(3 - Pfizer series) due on 10/30/2023 INFLUENZA(1) due on 12/13/2022 ANNUAL PCP TEAM CHRONIC DISEASE VISIT due on 10/30/2023 LIPID SCREEN due on 03/29/2026 DTAP,TDAP,TD(3 - Td or Tdap) due on 06/12/2032 DEPRESSION ASSESSMENT Completed HEPATITIS C SCREENING Completed Data reviewed [facility] ASSESSMENT/PLAN: 1. Blood in semen - ICD9: 608.82, ICD10: R36.1 - Possibly related to being on blood thinners. - UA ordered to complete at the lab with PSA. - If symptoms continue let me know and would refer to Urology Pt to complete labs, will call with results. I agree with the Chief Complaint, ROS, and Past Histories independently gathered by the clinical sales support advisor and the remaining scribed note accurately describes my personal service to the patient. Medical Decision Making: Problems: Moderate: New problem with uncertain prognosis Data: Unique test(s) ordered: 2 Medical Decision Making Level: 3 - Low Bharat Pfeiffer MD The documentation for this note was completed by Valentina Pickard Ma acting as scribe for Bharat Pfeiffer MD. November 28, 2022 4:27 PM. Valentina Pickard Ma [facility] 11-28-2022 History of Presen t illness Narrative Chief Complaint Patient presents with: Blood In Sperm HPI Bharat Finch is a 57 year old male who presents here today for an acute visit. Pt called into the office on 11/27/22 and spoke with a triage nurse about blood in his semen. Pt reports seeing blood in his semen for the past 1-2 weeks. Most recent episode occurred on 11/26/22 after having sexual intercourse. One other episode occurring about 1 week prior. Denies any pain with ejaculation. Reports that it is pinkish/red in color. Denies any pain, no difficulty passing urine, no urinary symptoms, hematuria, pain with urination, denies fever or abdominal pain. No known injury that he's aware of. Pt just wants to make sure there's nothing more concerning. Past medical history, appointments, medications, allergies reviewed. Previous Medical History No past medical history on file. 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 Patient Allergies ALLERGIES Not on File Current Medications Current Outpatient Medications on File Prior to Visit Medication Sig MULTAQ 400 mg tab TAKE 1 TABLET BY MOUTH TWICE DAILY WITH FOOD/MEAL lisinopril (ZESTRIL) 10 mg tablet Take 1 tablet by mouth once daily. ELIQUIS 5 mg tab(s) Take 1 tablet by mouth every 12 hours 6am/6pm. spironolactone (ALDACTONE) 25 mg tablet Take 1 tablet by mouth every afternoon. tiZANidine (ZANAFLEX) 4 mg tablet Take 4 mg by mouth every evening. HYDROcodone-acetaminophen (NORCO) 5-325 mg per tablet Take 1 tablet by mouth twice daily as needed. testosterone (ANDROGEL) 50 mg / 5 g (1%) Apply 1 Packet as directed once daily for 90 days. benzonatate (TESSALON PERLE) 100 mg capsule Take 1 capsule by mouth three times daily as needed for cough. Tadalafil (CIALIS) 20 mg tab(s) Take 1 tablet by mouth as needed. Take as needed 30-60 minutes prior to sexual activity metoprolol tartrate, short acting, (LOPRESSOR) 50 mg tablet Take 1 tablet by mouth twice daily. simvastatin (ZOCOR) 40 mg tablet Take 1 tablet by mouth once daily. furosemide (LASIX) 40 mg tablet Take 1 tablet by mouth once daily. clopidogrel (PLAVIX) 75 mg tablet Take 1 tablet by mouth once daily. aspirin, enteric coated (ASPIRIN, ENTERIC COATED) 81 mg EC tablet Take 1 tablet by mouth once daily. No current facility-administered medications on file prior to visit. Social History Social History Tobacco Use Smoking status: Never Smokeless tobacco: Never Substance Use Topics Alcohol use: Yes Comment: Rare alcohol usage Drug use: Not Currently EXAM: BP 124/82 (BP Site: Left Arm, BP Position: Sitting, BP Cuff Size: Regular Adult) Pulse 60 Resp 16 Wt 109.3 kg (241 lb) BMI 34.58 kg/m General Appearance: Well appearing, alert, in no acute distress, well-hydrated, well nourished. and Obese. Health Maintenance List HEPATITIS B(1 of 3 - 3-dose series) Never done DIABETES SCREEN Never done PROSTATE CANCER SCREENING DISCUSSION Never done LDL CHOLESTEROL due on 03/29/2022 COLORECTAL CANCER SCREENING due on 10/30/2023 HIV SCREENING due on 10/30/2023 SHINGRIX VACCINE(1 of 2) due on 10/30/2023 COVID-19 VACCINE(3 - Pfizer series) due on 10/30/2023 INFLUENZA(1) due on 12/13/2022 ANNUAL PCP TEAM CHRONIC DISEASE VISIT due on 10/30/2023 LIPID SCREEN due on 03/29/2026 DTAP,TDAP,TD(3 - Td or Tdap) due on 06/12/2032 DEPRESSION ASSESSMENT Completed HEPATITIS C SCREENING Completed Data reviewed Epic ASSESSMENT/PLAN: 1. Blood in semen - ICD9: 608.82, ICD10: R36.1 - Possibly related to being on blood thinners. - UA ordered to complete at the lab with PSA. - If symptoms continue let me know and would refer to Urology Pt to complete labs, will call with results. I agree with the Chief Complaint, ROS, and Past Histories independently gathered by the clinical sales support advisor and the remaining scribed note accurately describes my personal service to the patient. Medical Decision Making: Problems: Moderate: New problem with uncertain prognosis Data: Unique test(s) ordered: 2 Medical Decision Making Level: 3 - Low Bharat Pfeiffer MD The documentation for this note was completed by Valentina Pickard Ma acting as scribe for Bharat Pfeiffer MD. November 28, 2022 4:27 PM. Valentina Pickard Ma documented in this encounter [facility] 11-27-2022 Miscellaneous Notes Patient calls for appointment with Dr. Pfeiffer for blood in semen. Nurse triage completed. Protocol recommends see provider within [address] Pfeiffer. Referral placed. Appt. Scheduled. Reason for Disposition Blood in semen Answer Assessment - Initial Assessment Questions 1. SYMPTOM: Blood in the semen 2. LOCATION: Semen 3. ONSET: Patient is not certain but he thinks maybe for the past week. 4. PAIN: No 5. URINE: No difficulty passing urine 6. CAUSE: Patient not certain. 7. OTHER SYMPTOMS: Denies fever, abdominal pain, blood in urine, or any other urinary symptoms. Protocols used: Penis and Scrotum [id number] documented in this encounter [facility] 10-29-2022 Note HNO ID: [id number] Author: Bharat Pfeiffer MD Service: ? Author Type: Physician Type: Progress Notes Filed: 10/29/2022 3:26 PM Note Text: Chief Complaint Patient presents with: Wellness HPI Bharat Finch is a 57 year old male who presents here today for a follow up to renew his medications. Pt here today a medication follow up. Has not been seen in a year. Still working at [employer]. GI/Uro - No bowel, stomach or urinary issues. Declines any FHx of colon cancer. Declines wanting a colonoscopy at this time. Hypogonadism: Seems to be doing well on Androgel 1 packet daily. Has been out of the medication for the last couple of weeks. HTN: Does not check his BP at home lately. Denies any chest pains, dizziness, or SOB. Had a pacemaker placed in April. Follows with Cardiology every 6 months and has routine pacemaker checks. Pt on current regimen of Lisinopril 10 mg once daily, Aldactone 25 mg once daily and Lopressor 50 mg 1 tab po bid. Edema: ephraim legs L>R. Not too bad today. stable with Lasix 40 mg daily and Aldactone 25 mg daily. Lipid AND CAD: Taking Eliquis 5 mg 1 tab po bid, ASA 81 mg daily and Zocor 40 mg daily. Denies much to any exercise, tries to watch diet. Pain - Follows with Dr. Marie for his chronic back and neck pain. He's currently taking Tizanidine 4 mg at bedtime and [place] 5-325 mg 1 tab po bid prn, not daily per patient. Cold symptoms that started on that started improving by Friday/Friday. He still has some nasal congestion and cough that generally lingers. Notes coughing up some stuff. Denies any fever. He's been like this since he was a kid. Asking for something to help with his cough to speed things up. His ribs are hurting from coughing so much. HM - Declines HIV screening. Declines feeling down, depressed or hopeless. Declines wanting any further Covid vaccines. Declines Shingrix. Declines wanting to complete Colonoscopy or colorectal screening at this time. Past medical history, appointments, medications, allergies reviewed. Previous Medical History No past medical history on file. 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 Patient Allergies ALLERGIES Not on File Current Medications Current Outpatient Medications on File Prior to Visit Medication Sig testosterone (ANDROGEL) 50 mg / 5 g (1%) Apply 1 Packet as directed once daily for 90 days. Tadalafil (CIALIS) 20 mg tab(s) Take 1 tablet by mouth as needed. Take as needed 30-60 minutes prior to sexual activity metoprolol tartrate, short acting, (LOPRESSOR) 50 mg tablet Take 1 tablet by mouth twice daily. simvastatin (ZOCOR) 40 mg tablet Take 1 tablet by mouth once daily. furosemide (LASIX) 40 mg tablet Take 1 tablet by mouth once daily. clopidogrel (PLAVIX) 75 mg tablet Take 1 tablet by mouth once daily. (Patient not taking: Reported on 09/25/2022) aspirin, enteric coated (ASPIRIN, ENTERIC COATED) 81 mg EC tablet Take 1 tablet by mouth once daily. No current facility-administered medications on file prior to visit. Social History Social History Tobacco Use Smoking status: Never Smokeless tobacco: Never Substance Use Topics Alcohol use: Yes Comment: Rare alcohol usage Drug use: Not Currently EXAM: BP 108/64 (BP Site: Left Arm, BP Position: Sitting, BP Cuff Size: Regular Adult) Pulse 64 Resp 18 Ht 177.8 cm (5' 10 ) Wt 109.7 kg (241 lb 12.8 oz) BMI 34.69 kg/m? General Appearance: Well appearing, alert, in no acute distress, well-hydrated, well nourished. and Obese. Lungs: Lungs clear to auscultation. No wheezing, rhonchi, rales.. Heart: RRR without murmur, gallop, or rubs. No ectopy. Health Maintenance List HEPATITIS B(1 of 3 - 3-dose series) Never done HIV SCREENING Never done DIABETES SCREEN Never done COLORECTAL CANCER SCREENING Never done SHINGRIX VACCINE(1 of 2) Never done COVID-19 VACCINE(3 - Pfizer series) due on 10/05/2020 PROSTATE CANCER SCREENING DISCUSSION Never done LDL CHOLESTEROL due on 03/29/2022 DEPRESSION ASSESSMENT Never done INFLUENZA(1) due on 12/13/2022 ANNUAL PCP TEAM CHRONIC DISEASE VISIT due on 09/26/2023 LIPID SCREEN due on 03/29/2026 DTAP,TDAP,TD(2 - Td or Tdap) due on 02/03/2031 HEPATITIS C SCREENING Completed Data reviewed Epic ASSESSMENT/PLAN: 1. Wellness examination - ICD9: V70.0, ICD10: Z00.00 (primary diagnosis) - Counseled on healthy diet and regular exercise 2. Hypogonadism in male - ICD9: 257.2, ICD10: E29.1 - Rx given check labs in 3 months due to pt being off medication for several days. - TESTOSTERONE 1 % (50 MG/5 GRAM) TRANSDERMAL GEL PACKET 3. Lower leg edema - ICD9: 782.3, ICD10: R60.0 - Stable - Continue current medication regimen. 4. Sick sinus syndrome (HCC) - ICD9: 427.81, (more content not included)... [facility] 10-29-2022 History of Presen t illness Narrative Chief Complaint Patient presents with: Wellness HPI Bharat Finch is a 57 year old male who presents here today for a follow up to renew his medications. Pt here today a medication follow up. Has not been seen in a year. Still working at [employer]. GI/Uro - No bowel, stomach or urinary issues. Declines any FHx of colon cancer. Declines wanting a colonoscopy at this time. Hypogonadism: Seems to be doing well on Androgel 1 packet daily. Has been out of the medication for the last couple of weeks. HTN: Does not check his BP at home lately. Denies any chest pains, dizziness, or SOB. Had a pacemaker placed in April. Follows with Cardiology every 6 months and has routine pacemaker checks. Pt on current regimen of Lisinopril 10 mg once daily, Aldactone 25 mg once daily and Lopressor 50 mg 1 tab po bid. Edema: ephraim legs L>R. Not too bad today. stable with Lasix 40 mg daily and Aldactone 25 mg daily. Lipid & CAD: Taking Eliquis 5 mg 1 tab po bid, ASA 81 mg daily and Zocor 40 mg daily. Denies much to any exercise, tries to watch diet. Pain - Follows with Dr. Marie for his chronic back and neck pain. He's currently taking Tizanidine 4 mg at bedtime and [place] 5-325 mg 1 tab po bid prn, not daily per patient. Cold symptoms that started on that started improving by Friday/Friday. He still has some nasal congestion and cough that generally lingers. Notes coughing up some stuff. Denies any fever. He's been like this since he was a kid. Asking for something to help with his cough to speed things up. His ribs are hurting from coughing so much. HM - Declines HIV screening. Declines feeling down, depressed or hopeless. Declines wanting any further Covid vaccines. Declines Shingrix. Declines wanting to complete Colonoscopy or colorectal screening at this time. Past medical history, appointments, medications, allergies reviewed. Previous Medical History No past medical history on file. 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 Patient Allergies ALLERGIES Not on File Current Medications Current Outpatient Medications on File Prior to Visit Medication Sig testosterone (ANDROGEL) 50 mg / 5 g (1%) Apply 1 Packet as directed once daily for 90 days. Tadalafil (CIALIS) 20 mg tab(s) Take 1 tablet by mouth as needed. Take as needed 30-60 minutes prior to sexual activity metoprolol tartrate, short acting, (LOPRESSOR) 50 mg tablet Take 1 tablet by mouth twice daily. simvastatin (ZOCOR) 40 mg tablet Take 1 tablet by mouth once daily. furosemide (LASIX) 40 mg tablet Take 1 tablet by mouth once daily. clopidogrel (PLAVIX) 75 mg tablet Take 1 tablet by mouth once daily. (Patient not taking: Reported on 09/25/2022) aspirin, enteric coated (ASPIRIN, ENTERIC COATED) 81 mg EC tablet Take 1 tablet by mouth once daily. No current facility-administered medications on file prior to visit. Social History Social History Tobacco Use Smoking status: Never Smokeless tobacco: Never Substance Use Topics Alcohol use: Yes Comment: Rare alcohol usage Drug use: Not Currently EXAM: BP 108/64 (BP Site: Left Arm, BP Position: Sitting, BP Cuff Size: Regular Adult) Pulse 64 Resp 18 Ht 177.8 cm (5' 10 ) Wt 109.7 kg (241 lb 12.8 oz) BMI 34.69 kg/m General Appearance: Well appearing, alert, in no acute distress, well-hydrated, well nourished. and Obese. Lungs: Lungs clear to auscultation. No wheezing, rhonchi, rales.. Heart: RRR without murmur, gallop, or rubs. No ectopy. Health Maintenance List HEPATITIS B(1 of 3 - 3-dose series) Never done HIV SCREENING Never done DIABETES SCREEN Never done COLORECTAL CANCER SCREENING Never done SHINGRIX VACCINE(1 of 2) Never done COVID-19 VACCINE(3 - Pfizer series) due on 10/05/2020 PROSTATE CANCER SCREENING DISCUSSION Never done LDL CHOLESTEROL due on 03/29/2022 DEPRESSION ASSESSMENT Never done INFLUENZA(1) due on 12/13/2022 ANNUAL PCP TEAM CHRONIC DISEASE VISIT due on 09/26/2023 LIPID SCREEN due on 03/29/2026 DTAP,TDAP,TD(2 - Td or Tdap) due on 02/03/2031 HEPATITIS C SCREENING Completed Data reviewed Epic ASSESSMENT/PLAN: 1. Wellness examination - ICD9: V70.0, ICD10: Z00.00 (primary diagnosis) - Counseled on healthy diet and regular exercise 2. Hypogonadism in male - ICD9: 257.2, ICD10: E29.1 - Rx given check labs in 3 months due to pt being off medication for several days. - TESTOSTERONE 1 % (50 MG/5 GRAM) TRANSDERMAL GEL PACKET 3. Lower leg edema - ICD9: 782.3, ICD10: R60.0 - Stable - Continue current medication regimen. 4. Sick sinus syndrome (HCC) - ICD9: 427.81, ICD10: I49.5 - Pacemaker placed, continue checks 5. Atrial fibrillation, unspecified type (HCC) - ICD9: 427.31, ICD10: I48.91 - Continue current medication regimen. 6. Coronary artery disease involving [place] heart, unspecified vessel or lesion type, unspecified whether angina present - ICD9: 414.01, ICD10: I25.10 - Cont f/u with Cardio 7. Cough, unspecified type - ICD9: 786.2, ICD10: R05.9 - Rx for Tessalon - BENZONATATE 100 MG CAPSULE 3 mo f/u with labs; will wait until then to check testosterone level since he has been out of the medication for a few weeks now I agree with the Chief Complaint, ROS, and Past Histories independently gathered by the clinical sales support advisor and the remaining scribed note accurately describes my personal service to the patient. Medical Decision Making: Problems: Moderate: 2+ stable chronic illnesses Data: Unique test(s) ordered: 1 Risk: Moderate: Drug management Medical Decision Making Level: 4 - Moderate Bharat Pfeiffer MD The documentation for this note was completed by Valentina Pickard Ma acting as scribe for Bharat Pfeiffer MD. October 29, 2022 3:17 PM. Valentnia Pickard Ma documented in this encounter [facility] 09-25-2022 Note HNO ID: [id number] Author: Suly Bah APRN.SETTLEMENT PROCESSOR Service: ? Author Type: Nurse Practitioner Type: Progress Notes Filed: 09/25/2022 12:52 PM Note Text: This is a 56 year old male who presents today with: Patient presents with: Acute Visit: was build up in ears HISTORY OF PRESENT ILLNESS: Bharat Finch is a 56 year old male. Patient presents with: Acute Visit: was build up in ears Bilateral ear fullness for 1 month, left worse than right. Refers decreased hearing in the morning No URI symptoms, SOB, fevers Hx of needing ear wax removed PAST MEDICAL HISTORY: No past medical history on file. 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 MEDICATIONS Current Outpatient Medications Medication Sig Tadalafil (CIALIS) 20 mg tab(s) Take 1 tablet by mouth as needed. Take as needed 30-60 minutes prior to sexual activity metoprolol tartrate, short acting, (LOPRESSOR) 50 mg tablet Take 1 tablet by mouth twice daily. simvastatin (ZOCOR) 40 mg tablet Take 1 tablet by mouth once daily. furosemide (LASIX) 40 mg tablet Take 1 tablet by mouth once daily. aspirin, enteric coated (ASPIRIN, ENTERIC COATED) 81 mg EC tablet Take 1 tablet by mouth once daily. testosterone (ANDROGEL) 50 mg / 5 g (1%) Apply 1 Packet as directed once daily for 90 days. clopidogrel (PLAVIX) 75 mg tablet Take 1 tablet by mouth once daily. (Patient not taking: Reported on 09/25/2022) No current facility-administered medications for this visit. No family history on file. Social History Tobacco Use Smoking status: Never Smokeless tobacco: Never Substance Use Topics Alcohol use: Yes Comment: Rare alcohol usage Drug use: Not Currently REVIEW OF SYSTEMS GENERAL: No weight loss, malaise or fevers/chills HEENT: + Ear NECK: Negative for lumps, goiter, pain and significant neck swelling RESPIRATORY: Negative for cough, hemoptysis, wheezing, dyspnea or shortness of breath CARDIOVASCULAR: Negative for chest pain, leg swelling, orthopnea, or palpitations GI: No nausea, vomiting, or diarrhea/constipation. No hematochezia/melena. No heartburn or reflux symptoms. : No history of dysuria, frequency or incontinence MUSCULOSKELETAL: Negative for joint pain or swelling. SKIN: Negative for lesions, rash, and itching ENDOCRINE: Negative for cold or heat intolerance, polyuria, polydipsia and goiter NEURO: No history of headaches, syncope, paralysis, seizures or tremors MOOD: Negative for depression, anxiety, or suicidal ideation. EXAM: BP 120/70 Pulse 60 Resp 16 Wt 112.9 kg (249 lb) SpO2 97% PHYSICAL EXAM: General Appearance: Well appearing, alert, in no acute distress, well-hydrated, well nourished. Skin: Skin color, texture, turgor normal, no suspicious rashes or lesions. Head: Normocephalic, no masses, lesions, tenderness or abnormalities. Eyes: Anicteric sclera. Extraocular movements are intact. Ears: Positive findings: R TM: normal, L TM: normal, cerumen bilaterally, amount Large.- Ear lavage completed Neck: Supple, no adenopathy; thyroid symmetric, normal size, no bruits. Lungs: Lungs clear to auscultation. No wheezing, rhonchi, rales. Heart: RRR without murmur, gallop, or rubs. No ectopy. Extremities: No deformities, edema, skin discoloration, clubbing or cyanosis. Good capillary refill. Peripheral Pulses: Normal, Capillary refill <2secs, strong peripheral pulses, Pulses palpable. Neurologic: Gait normal. Sensation grossly intact. ASSESSMENT/PLAN: 1. Bilateral impacted cerumen - ICD9: 380.4, ICD10: H61.23 - Bilateral ear lavage completed in office - Large amount of cerumen removed without any difficulty. - May consider using Debrox [id number] eardrops once monthly for 5 days to help keep the earwax soft and prevent buildup. - Continue with daily antihistamine, may consider adding on Flonase 1-2 times per day. Return to the office as scheduled or as needed for worsening/no improvement. Discussed treatment plan and patient voices understanding. Patient's questions answered appropriately. Medications and potential side effects were discussed and patient voices understanding. Suly Bah APRN.SETTLEMENT PROCESSOR This note was partially generated using Sunlot voice recognition system. Note was reviewed for accuracy. There may be minor misspellings or grammar miscues with Sunlot voice recognition. [facility] 03-22-2022 Miscellaneous Notes OK to refill as ordered Bharat Pfeiffer MD Patient has been identified by name and date of : Yes Last office visit in this department: 06/27/2021 Labs-09/17/21 NOV-none med filled 11/02/21 RX INSTRUCTIONS: Patient aware RX will be sent to pharmacy. No need to notify patient. Patient phones requesting refills as follows: Requested Prescriptions Pending Prescriptions Disp Refills testosterone (ANDROGEL) 50 mg / 5 g (1%) 30 Packet 2 Sig: Apply 1 Packet as directed once daily for 90 days. Please review and advise. Kathe King documented in this encounter [facility] 11-26-2021 Miscellaneous Notes Noted; ordered by Cardiology No action needed Bharat Pfeiffer MD External Labs. View External Lab - Miscellaneous Lab [ID [id number]] View External Lab - Miscellaneous Lab [ID [id number]] documented in this encounter [facility] 11-02-2021 Miscellaneous Notes The following approved medication requests have been transmitted electronically. Signed Prescriptions Disp Refills testosterone (ANDROGEL) 50 mg / 5 g (1%) 30 Packet 2 Sig: Apply 1 Packet as directed once daily for 90 days. SARA Class: C-III ROB: No Authorizing Provider: BHARAT PFEIFFER Ma OK to refill as ordered Bharat Pfeiffer MD Patient has been identified by name and date of : Yes Pending Prescriptions Disp Refills TESTOSTERONE 1 % (50 MG/5 GRAM) TRANSDERMAL GEL PACKET 30 Packet 2 Sig: Apply 1 Packet as directed once daily for 90 days. SARA Class: C-III ROB: No BRAYAN-06/27/21 Labs-09/17/21 NOV-none med filled 07/06/21 ends 10/04/21 RX INSTRUCTIONS: Patient aware RX will be sent to pharmacy. No need to notify patient. Wandy Jovel Pss documented in this encounter [facility] 02-03-2021 Hospital Discharg e instructions Follow Up Care 02/03/2021 16:12:50 With:Cloth Weigher follow up Address: When: Unknown Comments:Diane Zuluaga, Nurse Cloth Weigher, will call you and/or your family after your release from the hospital. Office Hours: Friday thru Friday 8am - 430pmPhone: [facility]: [email or web address] With:SHAHRIAR DEGROOT MD Address: [phone] When:1-2 days Comments:GI physician. Referral was sent to Dr. Degroto or one of his partners for evaluation of esophageal thickening. They should be calling you with a follow up appointment. If you do not hear from them in 1 week, please call their office. With:[facility] Address: When: Unknown Comments:This is your home healthcare provider. Please call if you have questions related to home healthcare. With:ANGELA ABEBE MD Address: [address] [place] [address]- When:02/15/2021 15:55:00 Comments:Please arrive 15 minutes early and wear a mask. Bring your photo ID and insurance card and a any bottles of medications . Bring with you the discharge paperwork from hospital With:BJ MEMBRENO MD, Neurosurgery, Neurosurgery Address: [facility] [address] [id number] [phone] When:02/20/2021 10:45:00 [facility] Evaluation + Plan note Future Appointments Appointment Date:02/20/2021 10:45:00 AM Scheduled Provider:BJ MEMBRENO MD Location:NEUROS Appointment Type:NS Post Op [facility] Evaluation + Plan note Future Appointments Appointment Date:05/24/2021 09:30:00 AM Scheduled Provider: Location:XRAY Appointment Type:CT Spine Cervical w/o Contrast Appointment Date:05/24/2021 10:15:00 AM Scheduled Provider:BJ MEMBRENO MD Location:NEUROS Appointment Type:NS OV Future Scheduled TestsCT Spine Cervical w/o Contrast 05/24/21 [facility] Wellness examination- Primary Hypogonadism in male Lower leg edema Edema Sick sinus syndrome (HCC) Sinoatrial node dysfunction Atrial fibrillation, unspecified type (HCC) Coronary artery disease involving [place] heart, unspecified vessel or lesion type, unspecified whether angina present Cough, unspecified type documented in this encounter [facility] note* Diagnosis Blood in semen- Primary Hematospermia Coronary artery disease involving [place] heart, unspecified vessel or lesion type, unspecified whether angina present Hypogonadism in male documented in this encounter [facility] note* Diagnosis Recurrent UTI (urinary tract infection)- Primary Urinary tract infection, site not specified Urinary tract infection with hematuria, site unspecified documented in this encounter [facility] note* Diagnosis Blood in semen- Primary Hematospermia Recurrent UTI (urinary tract infection) Urinary tract infection, site not specified documented in this encounter [facility] note* Diagnosis Gross hematuria- Primary documented in this encounter [facility] note* Diagnosis Kidney stone- Primary Calculus of kidney documented in this encounter [facility] note* Diagnosis Hypogonadism in male Renal calculus, right Calculus of kidney documented in this encounter [facility] note* Diagnosis Preop examination Preoperative examination, unspecified Renal calculus, right Calculus of kidney Presence of cardiac pacemaker Cardiac pacemaker in situ ALICIA treated with BiPAP Essential (primary) hypertension Unspecified essential hypertension Atrial fibrillation, unspecified type (HCC) Chronic congestive heart failure, unspecified heart failure type (HCC) Coronary artery disease involving coronary bypass graft of [place] heart, unspecified whether angina present Mixed hyperlipidemia History of coronary artery bypass surgery Postsurgical aortocoronary bypass status Renal calculus, right Calculus of kidney documented in this encounter [facility] note* Diagnosis Kidney stone- Primary Calculus of kidney documented in this encounter [facility] course Narrative No data available for this section [facility] Hospital Discharge instructions No data available for this section [facility] Reason for referral (narrative)* Diagnostic Procedure Only (Routine) - Closed Specialty Diagnoses / Procedures Referred By Contac t Referred To Contact XR IMAGING Diagnoses Kidney stone Procedures XR ABDOMEN 1V SUPINE RADIOLOGIC EXAM ABDOMEN 1 VIEW Burke Davis Jr., MD [address] [place] [address] [place] [address] Referral ID Status Reason Start Date Expiration Date V isits Requested Visits Authorized [id number] Closed Auto-Generate d Referral 03/10/2023 04/08/2024 1 1 [facility] for referral (narrative)* Outpatient Procedure (Routine) - Pending Review Specialty Diagnoses / Procedures Referred By Giovanniac t Referred To Contact [facility] Diagnoses Preop examination Presence of cardiac pacemaker Atrial fibrillation, unspecified type (HCC) Procedures ECG COMPLETE ECG ROUTINE ECG W/LEAST 12 LDS W/I&R Derick Larsen APRN.SETTLEMENT PROCESSOR [address] [place] [address] [facility] [address] [place] [address] Referral ID Status Reason Start Date Expiration Date Visits Requested Visits Authorized [id number] Pending Review Auto-Generat ed Referral 03/18/2023 03/17/2024 1 1 [facility] for referral (narrative)* Diagnostic Procedure Only (Routine) - Pending Review Specialty Diagnoses / Procedures Referred By Cheng t Referred To Contact XR IMAGING Diagnoses Kidney stone Procedures XR ABDOMEN 1V SUPINE RADIOLOGIC EXAM ABDOMEN 1 V[address] Burke Davis Jr., MD [address] [place] [address] [place] [address] Referral ID Status Reason Start Date Expiration Date Visits Requested Visits Authorized [id number] Pending Review Auto-Generat ed Referral 04/22/2024 1 1 [facility] Summary Purpose Family History No Family History Records FoundThere may be information available, but it has not been provided by the sender.No Family History Records FoundNo Family History Records FoundNo Family History Records FoundNo Family History Records Found Advance Directives No Advanced Directives Records FoundThere may be information available, but it has not been provided by the sender.No Advanced Directives Records FoundNo Advanced Directives Records FoundNo Advanced Directives Records FoundNo Advanced Directives Records Found Chief Complaint Chief Complaint Description Start Date mid back pain Preliminary chief co mplaint data, not yet signed by the author as of Instructions Instruction Description Start Date CompletedPatient advised to follow-up with Primary Care Physician for BMI management. Assessments There may be information available, but it has not been provided by the sender. Review of System There may be information available, but it has not been provided by the sender. History of Present Illness There may be information available, but it has not been provided by the sender. Reason for Referral Specialty Diagnoses / Procedures Referred By Cheng jensen Referred To Contact Urology Diagnoses Blood in semen Procedures CONSULT TO UROLOGY OFFICE/OUTPATIENT [facility] 60-74 MINUTES Wily Mcghee APRN.SETTLEMENT PROCESSOR [address] [place] [address] Referral ID Status Reason Start Date Expiration Date Visits Requested Visits Authorized [id number] Pending Review PCP Requested Referral 12/27/2022 12/27/2023 1 1 Specialty Diagnoses / Procedures Referred By Cheng jensen Referred To Contact Diagnoses Hypogonadism in male Bharat Pfeiffer MD [address] [place] [address] Referral ID Status Reason Start Date Expiration Date V isits Requested Visits Authorized [id number] Pending Review 1 1 Medications Administered Section Inactive Administered Medications - up to 3 most recent administrations Medication Order MAR Action Action Date Dose Rate Site ciprofloxacin HCl 500 mg tab(s) (CIPRO) 500 mg, ORAL, ONCE, 1 dose, On 03/10/23 at 1030, Administer 2 hours before or 4 hours after medications containing calcium, magnesium, aluminum, iron, or zinc (including antacids and sucralfate), and sevelamer. May be administered without regard to meals. Tube feedings should be held 1 hour before and 1 hour after administration., Antimicrobial indication: Prophylaxis Given 03/10/2023 10:57 AM EST 500 mg Oral lidocaine urojet 2 % 6 mL topical gel (GLYDO) 6 mL, URETHRAL, ONCE, 1 dose, On 03/10/23 at 1030 Given by LIP 03/10/2023 10:57 AM EST 6 mL Other Additional Source Comments (unrecognized sect ion and content) No Status Records FoundNo Status Records FoundNo Status Records FoundNo Status Records FoundNo Status Records Found INFORMATION SOURCE (unrecogn ized section and content) DATE CREATED AUTHOR AUTHOR'S ORGANIZ ATION 05/26/2021 [facility] ([place] DATE CREATED AUTHOR AUTHOR'S ORGANIZ ATION 07/25/2022 [facility] DATE CREATED AUTHOR AUTHOR'S ORGANIZ ATION 04/28/2023 [facility] DATE CREATED AUTHOR AUTHOR'S ORGANIZ ATION 04/28/2023 [facility] Reason for Visit (unrecogniz ed section and content) Reason Onset Date Comments Refill Request 11/02/2021 Reason Comments External Labs Reason Comments Refill Request Reason Comments Wellness Reason Comments Penis/Scrotum Problem Reason Comments Blood In Sperm Specialty Diagnoses / Procedures Referred By Contac t Referred To Contact FAMILY MEDICINE Diagnoses Blood in semen Procedures OFFICE/OUTPATIENT ESTABLISHED LOW MDM 20-29 MIN Bharat Pfeiffer MD [address] [place], [place] [id number] [facility] [address] [place] [address] Referral ID Status Reason Start Date Expiration Date Visits Re quested Visits Authorized [id number] Closed 11/28/2022 04/13/2023 1 1 Reason Comments Results Reason Comments Follow Up For Blood in semen Specialty Diagnoses / Procedures Referred By Contac t Referred To Contact Family Medicine / FAMILY MEDICINE Diagnoses Blood in semen Continued Issues with Blood Semen Procedures OFFICE/OUTPATIENT ESTABLISHED MOD MDM 30-39 MIN 4C EST Bharat Pfeiffer MD [address] [place] [address] Wily Mcghee APRN.SETTLEMENT PROCESSOR [address] [place] [address] Referral ID Status Reason Start Date Expiration Date Visits Re quested Visits Authorized [id number] Closed 12/27/2022 04/13/2023 1 1 Reason Comments Appointment Reason Comments Cystoscopy-1 Reason Comments Forms [employer] E nrollment Form Reason Onset Date Comments Anesthesia Consult 03/21/2023 Reviewed case with anesthesia Request for cardiac optimization for upcoming elective procedure on 03/24/23ECG done in [facility] on 03/18/23 Diagnosis: SINUS TACHYCARDIA WITH PREMATURE ATRIAL COMPLEXES RSR' OR QR PATTERN IN V1 SUGGESTS RIGHT VENTRICULAR CONDUCTION DELAY T WAVE ABNORMALITY, CONSIDER INFERIOR ISCHEMIA ABNORMAL ECG NO PREVIOUS ECGS AVAILABLE Confirmed by MD VANESSA, KULDEEP ([id number]) on 03/19/2023 9:26:50 AM Reason Onset Date Comments Appointment 03/24/2023 Source Comments (unrecognize d section and content) In the event this informatio n is protected by the Federal Confidentiality of Alcohol and Drug Abuse Patient Records regulations: The Federal rules restrict any use of the information to criminally investigate or prosecute any alcohol or drug abuse patient.[facility] System[facility] the event this information is protected by the Federal Confidentiality of Alcohol and Drug Abuse Patient Records regulations: The Federal rules restrict any use of the information to criminally investigate or prosecute any alcohol or drug abuse patient.[facility] SystemIn the event this information is protected by the Federal Confidentiality of Alcohol and Drug Abuse Patient Records regulations: The Federal rules restrict any use of the information to criminally investigate or prosecute any alcohol or drug abuse patient.[facility] SystemIn the event this information is protected by the Federal Confidentiality of Alcohol and Drug Abuse Patient Records regulations: The Federal rules restrict any use of the information to criminally investigate or prosecute any alcohol or drug abuse patient.[facility] SystemIn the event this information is protected by the Federal Confidentiality of Alcohol and Drug Abuse Patient Records regulations: The Federal rules restrict any use of the information to criminally investigate or prosecute any alcohol or drug abuse patient.[facility] SystemIn the event this information is protected by the Federal Confidentiality of Alcohol and Drug Abuse Patient Records regulations: The Federal rules restrict any use of the information to criminally investigate or prosecute any alcohol or drug abuse patient.[facility] SystemIn the event this information is protected by the Federal Confidentiality of Alcohol and Drug Abuse Patient Records regulations: The Federal rules restrict any use of the information to criminally investigate or prosecute any alcohol or drug abuse patient.[facility] SystemIn the event this information is protected by the Federal Confidentiality of Alcohol and Drug Abuse Patient Records regulations: The Federal rules restrict any use of the information to criminally investigate or prosecute any alcohol or drug abuse patient.[facility] SystemIn the event this information is protected by the Federal Confidentiality of Alcohol and Drug Abuse Patient Records regulations: The Federal rules restrict any use of the information to criminally investigate or prosecute any alcohol or drug abuse patient.[facility] SystemIn the event this information is protected by the Federal Confidentiality of Alcohol and Drug Abuse Patient Records regulations: The Federal rules restrict any use of the information to criminally investigate or prosecute any alcohol or drug abuse patient.[facility] SystemIn the event this information is protected by the Federal Confidentiality of Alcohol and Drug Abuse Patient Records regulations: The Federal rules restrict any use of the information to criminally investigate or prosecute any alcohol or drug abuse patient.[facility] SystemIn the event this information is protected by the Federal Confidentiality of Alcohol and Drug Abuse Patient Records regulations: The Federal rules restrict any use of the information to criminally investigate or prosecute any alcohol or drug abuse patient.[facility] SystemIn the event this information is protected by the Federal Confidentiality of Alcohol and Drug Abuse Patient Records regulations: The Federal rules restrict any use of the information to criminally investigate or prosecute any alcohol or drug abuse patient.[facility] SystemIn the event this information is protected by the Federal Confidentiality of Alcohol and Drug Abuse Patient Records regulations: The Federal rules restrict any use of the information to criminally investigate or prosecute any alcohol or drug abuse patient.[facility] SystemIn the event this information is protected by the Federal Confidentiality of Alcohol and Drug Abuse Patient Records regulations: The Federal rules restrict any use of the information to criminally investigate or prosecute any alcohol or drug abuse patient.[facility] SystemIn the event this information is protected by the Federal Confidentiality of Alcohol and Drug Abuse Patient Records regulations: The Federal rules restrict any use of the information to criminally investigate or prosecute any alcohol or drug abuse patient.[facility] SystemIn the event this information is protected by the Federal Confidentiality of Alcohol and Drug Abuse Patient Records regulations: The Federal rules restrict any use of the information to criminally investigate or prosecute any alcohol or drug abuse patient.[facility] Care Teams (unrecognized sec tion and content) Electric Motor Control Assembler Relationship Specialty Start Date End Date Bharat Pfeiffer MD [address] [place] [address] PCP - General Family Practice 02/15/21 Electric Motor Control Assembler Relationship Specialty Start Date End Date Bharat Pfeiffer MD [address] [place], [place] [id number] PCP - General Family Medicine 02/15/21 Electric Motor Control Assembler Relationship Specialty Start Date End Date Bharat Pfeiffer MD [address] [place] [address] PCP - General Family Medicine 02/15/21 Electric Motor Control Assembler Relationship Specialty Start Date End Date Bharat Pfeiffer MD [address] [place] [address] PCP - General Family Medicine 02/15/21 Electric Motor Control Assembler Relationship Specialty Start Date End Date Bharat Pfeiffer MD [address] [place] [address] PCP - General Family Medicine 02/15/21 Electric Motor Control Assembler Relationship Specialty Start Date End Date Bharat Pfeiffer MD [address] [place] [address] PCP - General Family Medicine 02/15/21 Electric Motor Control Assembler Relationship Specialty Start Date End Date Bharat Pfeiffer MD [address] [place] [address] PCP - General Family Medicine 02/15/21 Electric Motor Control Assembler Relationship Specialty Start Date End Date Bharat Pfeiffer MD [address] [place] [address] PCP - General Family Medicine 02/15/21 Electric Motor Control Assembler Relationship Specialty Start Date End Date Bharat Pfeiffer MD [address] [place] [address] PCP - General Family Medicine 02/15/21 Electric Motor Control Assembler Relationship Specialty Start Date End Date Bharat Pfeiffer MD [address] [place] [address] PCP - General Family Medicine 02/15/21 Electric Motor Control Assembler Relationship Specialty Start Date End Date Bharat Pfeiffer MD [address] [place] [address] PCP - General Family Medicine 02/15/21 Electric Motor Control Assembler Relationship Specialty Start Date End Date Bharat Pfeiffer MD [address] [place] [address] PCP - General Family Medicine 02/15/21 Electric Motor Control Assembler Relationship Specialty Start Date End Date Bharat Pfeiffer MD [address] [place] [address] PCP - General Family Medicine 02/15/21 Electric Motor Control Assembler Relationship Specialty Start Date End Date Bharat Pfeiffer MD [address] [place] [address] PCP - General Family Medicine 02/15/21 Electric Motor Control Assembler Relationship Specialty Start Date End Date Bharat Pfeiffer MD [address] [place] [address] PCP - General Family Medicine 02/15/21 Electric Motor Control Assembler Relationship Specialty Start Date End Date Bharat Pfeiffer MD [address] [place] [address] PCP - General Family Medicine 02/15/21 FOR RECORDS PERTAINING TO PATIENTS WHO ARE OR HAVE BEEN ENROLLED IN A CHEMICAL DEPENDENCY/SUBSTANCEABUSE PROGRAM, SOME INFORMATION MAY BE OMITTED. This clinical summary was aggregated from multiple sources. Caution should be exercised in using it in the provision of clinical care. This summary normalizes information from multiple sources, and as a consequence, information in this document may materially change the coding, format and clinical context of patient data. In addition, data may be omitted in some cases. CLINICAL DECISIONS SHOULD BE BASED ON THE PRIMARY CLINICAL RECORDS. [facility] [employer] [facility]. provides no warranty or guarantee of the accuracy or completeness of information in this document.
[2023-06-06 07:53] LABS: Hematocrit 43.3 % (40-54); Hemoglobin 14.4 g/dL (13.0-16.5); Mean Corp Hgb Conc 33.3 g/dL (32-36); Mean Corpuscular Hgb 31.2 pg (27.0-32.0); Mean Corpuscular Volume 93.7 fL (80-94); Mean Platelet Vol. 11.2 fl (6.2-12.0); Platelet Count 159 K/mm3 (150-450); Red Blood Count 4.62 M/mm3 (4.6-6.2); White Blood Count 6.1 K/mm3 (4.4-11.0)
[2023-06-06 08:18] LABS: BNP,B-Type NATRIURETIC PEPTIDE 104.2 pg/mL (0-100)
[2023-06-06 08:21] LABS: Anion Gap 7 (5-15); BUN 23 mg/dL (7-18); BUN/Creat Ratio 14.2 RATIO (10-20); Calcium,Total 9.7 mg/dL (8.5-10.1); Chloride 104 mmol/L (98-107); Creatinine, Serum 1.62 mg/dL (0.70-1.30); EST Glomerular Filtration Rate 47 mL/min (>60); Est Glom Filt Rate - Afr Amer 57 mL/min (>60); Glucose 186 mg/dL (74-106); Potassium 3.7 mmol/L (3.5-5.1); Sodium Level 141 mmol/L (136-145)
== END | disposition home or self-care (01) ==
LOC: LAB 07:18
PROVIDERS: PCP Family Medicine; Referring Provider Physician Assistant Medical; Visit Provider Physician Assistant Medical
DX: I50.33 Acute on chronic diastolic (congestive) heart failure (principal); I48.0 Paroxysmal atrial fibrillation; Z79.01 Long term (current) use of anticoagulants
CPT/HCPCS: 36415; 80048; 83880; 85027

== ENCOUNTER → 2023-06-26 | Outpatient (CLI) | payer OTHER, SELFPAY ==
[2018-10-26 11:39] VITALS: BMI 38.9
--- NOTE | 2023-06-26 10:36 | CT_ITS ---
STUDY: CTA CHEST REASON FOR EXAM: Male, 57 years old. r/o PE RADIATION DOSAGE (If Supplied By Facility): CTDIvol = ( 19.79 ) mGy, DLP = ( 514.92 ) mGycm TECHNIQUE: The examination was performed with the intravenous administration of IV 100mL Isovue-370. Post-processing of the angiographic images was performed, with multiplanar reformation and 3D reconstruction. Individualized dose optimization techniques were used for this CT. COMPARISON: None. FINDINGS: Normal enhancement of the main pulmonary artery and right and left pulmonary arteries. Normal enhancement of the bilateral peripheral pulmonary arteries. There is no demonstrated pulmonary embolism. There is atherosclerotic calcification of the aortic arch with tortuosity. There is no demonstrated aortic dissection. Sternal cerclage wires and vascular clips are present from a prior sternotomy and coronary artery bypass graft procedure (CABG). There are calcifications of the coronary arteries. Dual-chamber pacemaker is seen. Normal mediastinum. Normal hilar regions. Normal visualized trachea and bronchi. The lungs are well expanded. Normal pulmonary parenchyma. Normal pleura. Normal chest wall structures. There are degenerative changes of thoracic spine. Small hiatal hernia. CT/CTA Chest W/WO Contrast IMPRESSION: No evidence of pulmonary embolism. Prior CABG. Electronically Signed: Brandon Cabrera MD at 12:30 EDT ,
[2023-06-26 11:22] LABS: BNP,B-Type NATRIURETIC PEPTIDE 152.2 pg/mL (0-100)
[2023-06-26 11:23] LABS: ALB/GLOB Ratio 1.1 RATIO (0.9-2.4); AST(SGOT) 29 U/L (15-37); Alanine Aminotransfer ALT/SGPT 28 U/L (16-61); Albumin, Serum 3.9 g/dL (3.2-5.0); Alkaline Phosphatase 78 U/L (45-117); Anion Gap 5 (5-15); BUN 21 mg/dL (7-18); Calcium,Total 9.5 mg/dL (8.5-10.1); Chloride 104 mmol/L (98-107); EST Glomerular Filtration Rate 55 mL/min (>60); Est Glom Filt Rate - Afr Amer 67 mL/min (>60); Globulin 3.6 g/dL (2.2-4.2); Glucose 104 mg/dL (74-106); Protein, Total 7.5 g/dL (6.4-8.2); Sodium Level 140 mmol/L (136-145)
== END | disposition home or self-care (01) ==
LOC: CT 10:25
PROVIDERS: PCP Family Medicine; Referring Provider Physician Assistant Medical; Visit Provider Physician Assistant Medical
DX: R06.09 Other forms of dyspnea (principal)
CPT/HCPCS: 36415; 71275; 80053; 83880; Q9967; A4216

== ENCOUNTER → 2023-06-30 | Outpatient (CLI) | payer OTHER, SELFPAY ==
[2018-10-26 11:39] VITALS: BMI 38.9
--- NOTE | 2023-06-30 09:55 | ECHOCS_ITS ---
Reason For Study: EDEMA Procedure This was a 2D Doppler, Color Flow transthoracic echocardiogram. The study was technically difficult. Due to arrhythmia. Contrast injection was performed. Exam performed in department. Left Ventricle Normal LV size. Mild concentric left ventricular hypertrophy. Left ventricular systolic function is lower limits of normal. The left ventricular ejection fraction is 50 %. No regional wall motion abnormalities noted. Right Ventricle Normal RV size. Normal systolic function. Atria The left atrium is mildly enlarged. Normal right atrium. Mitral Valve Normal mitral valve. Tricuspid Valve The tricuspid valve is not well visualized. Pulmonic Valve The pulmonic valve is not well visualized. Great Vessels Normal aortic root. Pericardium/Pleural No pericardial effusion. Medication 22 gauge I.V. with prn adaptor inserted into left arm. Diluted definity 3.0ml given slow IV push to enhance endocardial definition. MMode/2D Measurements & Calculations LVIDd: 4.5 cm IVSd: 1.2 cm LAV(MOD-bp): 89.9 ml LVIDs: 3.6 cm LVPWd: 1.3 cm LAV(MOD-bp) Indexed: 39.6 ml/m2 RVDd: 3.7 cm FS: 19.2 % LAV(MOD-sp2): 89.3 ml LAV(MOD-sp4): 88.0 ml SV(MOD-sp4): 33.8 ml SV(sp4-el): 34.9 ml LVAd ap4: 25.6 cm2 LVLd ap4: 6.9 cm EDV(MOD-sp4): 77.1 ml EDV(sp4-el): 79.8 ml LVAs ap4: 19.8 cm2 LVLs ap4: 7.4 cm ESV(MOD-sp4): 43.3 ml ESV(sp4-el): 45.0 ml EF(MOD-sp4): 43.8 % EF(sp4-el): 43.7 % LA A4 area: 24.8 cm2 RA A4 area: 17.3 cm2 TAPSE: 1.6 cm Doppler Measurements & Calculations MV E max pj: 125.7 cm/sec Ao V2 max: 94.7 cm/sec LV V1 max: 100.0 cm/sec Ao max P.6 mmHg LV V1 max P.0 mmHg Ao V2 mean: 63.2 cm/sec LV V1 mean P.0 mmHg Ao mean P.8 mmHg LV V1 mean: 67.9 cm/sec Ao V2 VTI: 16.2 cm LV V1 VTI: 17.8 cm AV (velocity ratio): 1.1 PA V2 max: 94.1 cm/sec PA V2 mean: 59.1 cm/sec PA V2 VTI: 14.2 cm ECHO/Echo Complete W/ Contrast Interpretation Summary Normal LV size. Left ventricular systolic function is lower limits of normal. Mild concentric left ventricular hypertrophy. The left ventricular ejection fraction is 50 %. The left atrium is mildly enlarged. Contrast injection was performed. Ordering Physician: Rosaura De aL O Referring Physician: Philip Coronado Performed By: Suki Portillo RDCS, RVT
== END | disposition home or self-care (01) ==
PROVIDERS: PCP Family Medicine; Referring Provider Physician Assistant Medical; Visit Provider Physician Assistant Medical
DX: R60.0 Localized edema (principal)
CPT/HCPCS: 93306; Q9957; A4216; C8929

== ENCOUNTER 2023-07-30 13:39 | Inpatient (IN) | payer OTHER, SELFPAY ==
[2018-10-26 11:39] VITALS: BMI 38.9
[2023-07-30] VITALS (22 sets, daily range): BP systolic 107–144; BP diastolic 61–115; PULSE 80–134; RESP 14–26; TEMP 35.9–36.9; O2SAT 93–100; BMI 37.1; BMI 37.0
--- NOTE | 2023-07-30 14:19 | ED.VIS.DYS ---
HPI History of Present Illness Chief Complaint: Shortness of Breath Narrative Narrative: 57-year-old male with history of CAD, A-fib, CABG, cardiac stent, hypertension, hyperlipidemia presenting with dyspnea, lower extremity edema., Abdominal swelling. Patient states he has been in A-fib for approximately 2 weeks. He relates that he previously was on Multaq but has been switched to metoprolol. He believes physical months ago. He states that over the last 2 weeks he is felt like he has been in A-fib but he states he is very stubborn and did not want to be evaluated. He states that he called Dr. Enriquez's office and they were able to tell him that his heart rhythm was in A-fib for the last 2 weeks. He states the provider called him back but he decided come to emergency room by concern for blood swelling. Patient denies any chest pain. Patient is on Eliquis and has been for 2 years. He states he is on metoprolol 50 mg p.o. twice daily and has not missed any doses. Is taking Lasix 40 mg daily. Patient also states that he has a pacemaker which was placed by Dr. Enriquez. [facility] Medical History Atherosclerotic heart disease of [place] coronary artery without angina pectoris Atrial fibrillation Essential hypertension History of cardioversion (12/14/21) HLD (hyperlipidemia) Nonsustained paroxysmal ventricular tachycardia ALICIA treated with BiPAP PAF (paroxysmal atrial fibrillation) Palpitations Sick sinus syndrome Tachy-bradley syndrome Home Medications aspirin 81 mg tablet,delayed release (Adult Low Dose Aspirin) [facility] [History Last Taken 07/30/23] hydrocodone-acetaminophen 5-325mg 5mg-325mg 0.5 tab PO DAILY PRN Pain 09/08/20 [History Last Taken 12/09/21] apixaban 5 mg tablet (Eliquis) 5 mg PO BID blood thinner #60 tabs 11/15/22 [Rx Last Taken 07/30/23] furosemide 40 mg tablet (Lasix) 40 mg PO DAILY water retention #180 tabs 01/31/23 [Rx Last Taken 07/30/23] lisinopril 5 mg tablet 5 mg PO DAILY #90 tabs 03/18/23 [Rx Last Taken 07/30/23] metoprolol tartrate 50 mg tablet 50 mg PO BID #180 tabs 03/18/23 [Rx Last Taken 07/30/23] simvastatin 40 mg tablet 40 mg PO QPM cholesterol #90 tabs 06/19/23 [Rx Last Taken 07/29/23] amoxicillin 875 mg-potassium clavulanate 125 mg tablet 1 tab PO BID 07/30/23 [History Last Taken 07/30/23] benzonatate 100 mg capsule 100 mg PO TID 07/30/23 [History Last Taken 07/30/23] testosterone 1 % (50 mg/5 gram) transdermal gel packet 1 packet transdermal DAILY 07/30/23 [History Last Taken 07/30/23] tizanidine 4 mg tablet 4 mg PO QHS PRN muscle spasm 07/30/23 [History Last Taken Unknown] Allergy/AdvReac Type Severity Reaction Status Date / Time chlorhexidine Allergy Itching,erickson Verified 07/30/23 13:40 [From ChloraPrep Clear] h isopropyl alcohol Allergy Itching,erickson Verified 07/30/23 13:40 [From ChloraPrep Clear] h Family History Father CAD (coronary artery disease) Diabetes Cancer Mother Diabetes Brother brain aneurysm rupture Surgical History H/O coronary artery bypass surgery (12/02/08) History of arthroscopy of left shoulder (03/2017) History of coronary artery stent placement (10/26/18) History of left heart catheterization (LHC) (10/26/18) History of tonsillectomy Social History household members: spouse housing: house current occupational status: employed 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 Smoking Status: Never smoker alcohol intake: current alcohol intake frequency: a few times a month substance use type: does not use caffeine: Yes Type: carbonated beverages Number of servings: 5 and coffee Number of servings: 1 what type of physical activity do you participate in: none do you feel safe at home: Yes ROS ROS ED Constitutional Constitutional ED: Denies chills or fever(s) Eyes Eyes: Denies change in vision ENT ENT ED: Denies rhinorrhea or sore throat Cardiovascular Cardiovascular: Reports orthopnea, palpitations and racing heartbeat Respiratory/Chest Respiratory/Chest: Reports dyspnea, dyspnea on exertion and orthopnea Gastrointestinal Gastrointestinal: Reports other Details: Abdominal Genitourinary Genitourinary ED: Denies dysuria or hematuria Musculoskeletal Musculoskeletal: Denies arthralgias Integumentary Denies abscess Neurologic Neurologic: Denies headache(s) or paresthesias EXAM Physical Exam Const Vital Signs: 07/30/23 13:41 07/30/23 14:51 07/30/23 14:11 Temperature 96.7 F L Temperature Source Temporal Pulse Rate 105 H 99 Respiratory Rate 18 14 Blood Pressure 123/105 H 113/61 Blood Pressure Mean 111 78 Pulse Ox 97 95 99 Oxygen Delivery Method Room Air Nasal Cannula Room Air 07/30/23 15:00 07/30/23 16:00 Temperature Temperature Source Pulse Rate 109 H 111 H Respiratory Rate 18 21 H Blood Pressure 114/76 117/88 H Blood Pressure Mean 88 97 Pulse Ox 96 98 Oxygen Delivery Method Positive well nourished General Appearance ED: Negative for pallor HEENT Reports moist mucous membranes atraumatic and trauma Eyes PERRL and EOMs intact bilaterally Resp Auscultation: diminished lung sounds bilateral lower Cardio Rate: tachycardic Rhythm: abnormal rhythm irregularly irregular GI non-tender Extremity General Extremety ED: Yes edema General Extremity: edema Neuro oriented x3 and CN's II-XII intact bilaterally Sensorium / Orientation: alert Psych mental status grossly normal Skin no wounds General Skin Exam: Negative for jaundice or pallor MDM MDM MDM Narrative Medical decision making narrative: 57-year-old male presenting with tachycardia. He is in A-fib based on his EKG which on my interpretation is A-fib at 147 bpm. Patient states that Dr. Enriquez's office was able to tell him that has been in A-fib for 2 weeks. He came to the ER prior to receiving a call back. Differential includes ACS, CHF, pneumonia, dehydration, anemia, electro normalities. Patient was given Cardizem 25 mg. CBC to assess white blood cell count, hemoglobin and platelets. BMP to assess renal function, electrolytes. LFTs to assess liver function. High-sensitivity troponin will be obtained to assess for ischemia. BNP to assess for CHF. Patient placed on the monitor. Currently other than his tachycardia his vital signs are stable. Reevaluation the patient has initially had heart rates in the 90s and heart rate around 100. Was given some Lopressor. CBC shows normal white blood cell count of 7.0. Hemoglobin 3. Platelets are normal at 85. Creatinine 1.25. Electrolytes are normal. Total bilirubin elevated 1.10, direct bili 1.4. AST and ALT all normal. BNP 28.2 and troponin is 11. Chest x-ray my interpretation shows CHF. Radiology interprets this and agrees. Patient was given 40 mg of Lasix p.o. Patient discussed with hospitalist for admission. Impression: 1. A-fib with RVR 2. CHF Lab Data Labs: Laboratory Results - last 24 hr 07/30/23 14:26 WBC 7.0 RBC 4.74 Hgb 14.3 Hct 44.7 MCV 94.3 H MCH 30.2 MCHC 32.0 RDW Std Deviation 45.1 H RDW Coeff of Ashwini 13.1 Plt Count 155 MPV 10.8 Immature Gran % (Auto) 0.300 Neut % (Auto) 59.3 Lymph % (Auto) 22.7 [place] % (Auto) 13.5 H Eos % (Auto) 2.9 Baso % (Auto) 1.3 H Absolute Neuts (auto) 4.1 Absolute Lymphs (auto) 1.58 Nucleated RBC % 0 Sodium 139 Potassium 3.8 Chloride 104 Carbon Dioxide 31.0 Anion Gap 4 L BUN 22 H Creatinine 1.25 Estim Creat Clear Calc 81.24 Est GFR (MDRD) Af Amer 76 Est GFR (MDRD) Non-Af 63 BUN/Creatinine Ratio 17.6 Glucose 102 Calcium 9.4 Total Bilirubin 1.10 H Direct Bilirubin 0.34 H AST 30 ALT 28 Alkaline Phosphatase 86 Troponin I High Sens 11 B-Natriuretic Peptide 228.2 H Total Protein 7.3 Albumin 3.9 Globulin 3.4 Radiography Diagnostic Testing: Clinical Impression(s) from Imaging Studies Chest X-Ray 07/30/23 14:28 IMPRESSION: Mild degree of vascular congestion. Borderline cardiomegaly. Electronically Signed: Brandon Cabrera MD at 14:40 EDT , Discharge Plan Triage Chief Complaint: Shortness of Breath ED Provider: Delroy,Javier Dx/Rx/DC Orders Prescriptions: No Action aspirin [Adult Low Dose Aspirin] 81 mg tablet,delayed release (DR/EC) 81 mg PO QDAY hydrocodone-acetaminophen 5-325 mg tablet 0.5 tab PO DAILY PRN (Reason: Pain) furosemide [Lasix] 40 mg tablet 40 mg PO DAILY Qty: 180 3RF benzonatate 100 mg capsule 100 mg PO TID amoxicillin-pot clavulanate 875-125 mg tablet 1 tab PO BID testosterone 1 % (50 mg/5 gram) gel in packet 1 packet transdermal DAILY tizanidine 4 mg tablet 4 mg PO QHS PRN (Reason: muscle spasm) Eliquis 5 mg tablet 5 mg PO BID Qty: 60 11RF Hold Instructions: Resume on 05/18/22. metoprolol tartrate 50 mg tablet 50 mg PO BID Qty: 180 3RF lisinopril 5 mg tablet 5 mg PO DAILY Qty: 90 3RF simvastatin 40 mg tablet 40 mg PO QPM Qty: 90 3RF Primary Care Provider: Philip Coronado Referrals: Philip Coronado MD [Primary Care Provider] -
[2023-07-30] MEDS: dilTIAZem 25 MG/5 ML Vial IV BOLUS (14:27)
[2023-07-30] MEDS: 0.9% Normal Saline (1000mL) 1,000 ML 1000 ML IV (14:27)
--- NOTE | 2023-07-30 14:28 | RAD_ITS ---
STUDY: X-RAY CHEST REASON FOR EXAM: Male, 57 years old. Chest pain TECHNIQUE: Single AP portable view of the chest. COMPARISON: Comparison is made with prior study October 31, 2022. FINDINGS: EKG electrodes are seen. Mild degree of vascular congestion. There is no demonstrated pleural abnormality. Sternal cerclage wires and vascular clips are present from a prior sternotomy and coronary artery bypass graft procedure (CABG). A left-sided dual-chamber pacemaker is seen. Normal mediastinum and rosy. Normal visualized pulmonary arteries. Normal visualized aortic arch and descending thoracic aorta. Normal visualized thoracic spine. Normal visualized ribs, clavicles, and shoulders. There is no demonstrated abnormality of the visualized soft tissue structures of the upper abdomen. RAD/Chest 1 View (Portable) IMPRESSION: Mild degree of vascular congestion. Borderline cardiomegaly. Electronically Signed: Brandon Cabrera MD at 14:40 EDT ,
[2023-07-30 14:35] LABS: Absolute Lymphocyte Count 1.58 X10^3/uL (0.83-4.51); Absolute Neutrophil Count 4.1 X10^3/uL (2.0-7.7); Basophil# 0.09 X10^3/uL; Basophil% 1.3 % (0-1); Eosinophils% 2.9 % (0-5); Hematocrit 44.7 % (40-54); Hemoglobin 14.3 g/dL (13.0-16.5); Lymphocyte # 1.58 X10^3/ul (0.83-4.51); Lymphocyte % 22.7 % (19-41); Mean Corpuscular Hgb 30.2 pg (27.0-32.0); Mean Corpuscular Volume 94.3 fL (80-94); Mean Platelet Vol. 10.8 fl (6.2-12.0); Monocyte# 0.94 X10^3/uL; Monocyte% 13.5 % (0-10); NRBC Flagged by Analyzer 0 % (0-5); Neutrophil # 4.14 X10^3/uL (2.7-7.7); Neutrophil % 59.3 % (47-70); Platelet Count 155 K/mm3 (150-450); RBC Distribution Width CV 13.1 % (11.6-14.6); RBC Distribution Width SD 45.1 fl (35.1-43.9); Red Blood Count 4.74 M/mm3 (4.6-6.2)
[2023-07-30 14:51] LABS: BNP,B-Type NATRIURETIC PEPTIDE 228.2 pg/mL (0-100)
[2023-07-30 14:53] LABS: AST(SGOT) 30 U/L (15-37); Alanine Aminotransfer ALT/SGPT 28 U/L (16-61); Albumin, Serum 3.9 g/dL (3.2-5.0); Alkaline Phosphatase 86 U/L (45-117); Anion Gap 4 (5-15); BUN 22 mg/dL (7-18); BUN/Creat Ratio 17.6 RATIO (10-20); Bilirubin, Direct 0.34 mg/dL (0.00-0.30); Calcium,Total 9.4 mg/dL (8.5-10.1); Chloride 104 mmol/L (98-107); Creatinine, Serum 1.25 mg/dL (0.70-1.30); EST Glomerular Filtration Rate 63 mL/min (>60); Est Glom Filt Rate - Afr Amer 76 mL/min (>60); Estimated Creatinine Clearance 81.24 ml/min; Globulin 3.4 g/dL (2.2-4.2); Glucose 102 mg/dL (74-106); Potassium 3.8 mmol/L (3.5-5.1); Protein, Total 7.3 g/dL (6.4-8.2); Sodium Level 139 mmol/L (136-145); Troponin-I HS (w/2H Reflex) 11 pg/mL (3.0-78.0)
[2023-07-30 16:32] LABS: Reflex Troponin-HS? (from REC) Y
--- NOTE | 2023-07-30 16:38 | PCM.HP.STD ---
HPI - General General Date of Admission: 07/30/23 Date of Service: 07/30/23 Chief Complaint: Dyspnea, weight gain, increasing LE edema, palpations. HPI Narrative The patient is a 57 y/o M w/ PMHx: Obesity, PAF, CAD s/p CABG and PCI, HTN, HLD, Hx Sick sinus syndrome/Tachy-bradley syndrome s/p pacemaker status, ALICIA on BIPAP who presents to the [facility] ED on 07/30/23 with history of dyspnea worsening as well as increasing lower extremity swelling, abdominal swelling and weight gain notably more so over the last 2 weeks with reported arrhythmia specifically A-fib also ongoing for the last 2 weeks with history of previously having been on Multaq but switched to metoprolol however this was potentially months prior unfortunately not seeking evaluation for his cardiology services but eventually contacted his sales enablement manager office on day of presentation and it was their recommendation to present to the ED for evaluation. Patient reports that his normal baseline weight is 237 and upon current ED presentation he weighed 250 pounds. Workup in the ED included T96.7, heart rate 105, BP 123/105, respiratory rate 18, 97% on room air with most recent repeat vitals heart rate 111, BP 117/88, respiratory rate 21, 98% on room air, CBC with WBC 7.0, hemoglobin 14.3, MCV 94.3, platelet 155 without marked shift, CMP with BUN/creatinine 22/1.25, hepatic profile with T. bili 1.10, D bili 0.34 otherwise not marked appearing, BNP 228.2, troponin 11, chest x-ray with mild degree of vascular congestion and borderline cardiomegaly, EKG with atrial fibrillation with RVR with heart rate 147 initially. In the ED patient administered Lopressor 5 mg IV x 1 and eventually diltiazem 25 mg IV x 1 and lasix 40 mg IV x 1. [facility] Medical History (Updated 07/30/23 @ 19:[address] Martha Madrid MD) Atherosclerotic heart disease of [place] coronary artery without angina pectoris Essential hypertension History of cardioversion (12/14/21) HLD (hyperlipidemia) Nonsustained paroxysmal ventricular tachycardia Obesity ALICIA treated with BiPAP PAF (paroxysmal atrial fibrillation) Sick sinus syndrome Tachy-bradley syndrome Home Medications aspirin 81 mg tablet,delayed release (Adult Low Dose Aspirin) 81 mg PO QDAY [facility] 08/29/17 [History Last Taken 07/30/23] hydrocodone-acetaminophen 5-325mg 5mg-325mg 0.5 tab PO DAILY PRN Pain 09/08/20 [History Last Taken 12/09/21] apixaban 5 mg tablet (Eliquis) 5 mg PO BID blood thinner #60 tabs 11/15/22 [Rx Last Taken 07/30/23] furosemide 40 mg tablet (Lasix) 40 mg PO DAILY water retention #180 tabs 01/31/23 [Rx Last Taken 07/30/23] lisinopril 5 mg tablet 5 mg PO DAILY #90 tabs 03/18/23 [Rx Last Taken 07/30/23] metoprolol tartrate 50 mg tablet 50 mg PO BID #180 tabs 03/18/23 [Rx Last Taken 07/30/23] simvastatin 40 mg tablet 40 mg PO QPM cholesterol #90 tabs 06/19/23 [Rx Last Taken 07/29/23] amoxicillin 875 mg-potassium clavulanate 125 mg tablet 1 tab PO BID 07/30/23 [History Last Taken 07/30/23] benzonatate 100 mg capsule 100 mg PO TID 07/30/23 [History Last Taken 07/30/23] testosterone 1 % (50 mg/5 gram) transdermal gel packet 1 packet transdermal DAILY 07/30/23 [History Last Taken 07/30/23] tizanidine 4 mg tablet 4 mg PO QHS PRN muscle spasm 07/30/23 [History Last Taken Unknown] Allergy/AdvReac Type Severity Reaction Status Date / Time chlorhexidine Allergy Itching,erickson Verified 07/30/23 13:40 [From ChloraPrep Clear] h isopropyl alcohol Allergy Itching,erickson Verified 07/30/23 13:40 [From ChloraPrep Clear] h Family History Father CAD (coronary artery disease) Diabetes Cancer Mother Diabetes Brother brain aneurysm rupture Surgical History H/O coronary artery bypass surgery (12/02/08) History of arthroscopy of left shoulder (03/2017) History of coronary artery stent placement (10/26/18) History of left heart catheterization (LHC) (10/26/18) History of tonsillectomy S/P cardiac pacemaker procedure Social History household members: spouse housing: house current occupational status: employed 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 HEENT: Eyes: No visual loss, blurred vision, double vision or yellow sclerae. Ears, Nose, Throat: No hearing loss, sneezing, congestion, runny nose or sore throat. SKIN: No rash or itching, lesions, wounds. CARDIOVASCULAR: + Edema, orthopnea, weight gain, palpitations. No chest pain, chest pressure or chest discomfort, syncopal events. RESPIRATORY: + Dyspnea. No cough or sputum, wheezing, hemoptysis. GASTROINTESTINAL: No anorexia, nausea, vomiting or diarrhea, abdominal pain, melena, BRBPR. GENITOURINARY: No dysuria, frequency, urgency or retention. NEUROLOGICAL: No headache, dizziness, syncope, paralysis, ataxia, numbness or tingling in the extremities, focal weakness, change in bowel or bladder control, seizure. MUSCULOSKELETAL: + muscle, back pain, joint pain or stiffness. HEMATOLOGIC: No anemia. + Easy bleeding/bruising. LYMPHATICS: No enlarged nodes. No history of splenectomy. PSYCHIATRIC: No history of depression or anxiety. ENDOCRINOLOGIC: No reports of sweating, cold or heat intolerance. No polyuria or polydipsia. ALLERGIES: No history of asthma, hives, eczema or rhinitis. Vital Signs Vital Signs Vital Signs: 07/30/23 13:41 07/30/23 14:51 07/30/23 14:11 Temperature 96.7 F L Temperature Source Temporal Pulse Rate 105 H 99 Respiratory Rate 18 14 Blood Pressure 123/105 H 113/61 Blood Pressure Mean 111 78 Pulse Ox 97 95 99 Oxygen Delivery Method Room Air Nasal Cannula Room Air 07/30/23 15:00 07/30/23 16:00 Temperature Temperature Source Pulse Rate 109 H 111 H Respiratory Rate 18 21 H Blood Pressure 114/76 117/88 H Blood Pressure Mean 88 97 Pulse Ox 96 98 Oxygen Delivery Method Weight Weight: 251 lb 11.2 oz Body Mass Index (BMI) 37.1 Physical Exam Narrative Physical Examination: General: Awake, alert, oriented x 3 and cooperative, seated upright in the ED bed, fatigued, no overt evidence of any respiratory distress. Skin: Normal color, normal turgor, no icterus, no cyanosis except notable bilateral lower extremity venous stasis skin changes. HEENT: AT/NC, EOMI, PERRLA, MMM, no carotid bruits, + JVD noted. Lungs: Diminished, greater bases, very minimal rales, no evidence of any distress, no rhonchi or wheezing. Heart: Irregular regular; no gallop, rub audible. Abdomen: Soft, obese, NTTP, distant BS, difficult to discern distention and HSM given habitus. Extremities: No cyanosis, no clubbing, significant bilateral lower extremity 2-3+ pitting edema pedal to above-knee. Neurological: Patient awake, alert, oriented as noted, cognitive function intact; pupils equally reactive to light and accommodation, cranial nerves grossly normal, moving all 4 extremities, no focal deficits, strength moderately to severely global decrease secondary to acute presentation complaints. Psychiatric: Affect appears flat, fatigued, no acute evidence of depressive or anxiety feelings. Results Lab / Micro Data 07/30/23 14:26 07/30/23 14:26 Labs: Laboratory Results - last 24 hr 07/30/23 14:26: WBC 7.0, RBC 4.74, Hgb 14.3, Hct 44.7, MCV 94.3 H, MCH 30.2, MCHC 32.0, RDW Std Deviation 45.1 H, RDW Coeff of Ashwini 13.1, Plt Count 155, MPV 10.8, Immature Gran % (Auto) 0.300, Neut % (Auto) 59.3, Lymph % (Auto) 22.7, [place] % (Auto) 13.5 H, Eos % (Auto) 2.9, Baso % (Auto) 1.3 H, Absolute Neuts (auto) 4.1, Absolute Lymphs (auto) 1.58, Nucleated RBC % 0, Sodium 139, Potassium 3.8, Chloride 104, Carbon Dioxide 31.0, Anion Gap 4 L, BUN 22 H, Creatinine 1.25, Estim Creat Clear Calc 81.24, Est GFR (MDRD) Af Amer 76, Est GFR (MDRD) Non-Af 63, BUN/Creatinine Ratio 17.6, Glucose 102, Calcium 9.4, Total Bilirubin 1.10 H, Direct Bilirubin 0.34 H, AST 30, ALT 28, Alkaline Phosphatase 86, Troponin I High Sens 11, B-Natriuretic Peptide 228.2 H, Total Protein 7.3, Albumin 3.9, Globulin 3.4 Imaging Radiology Impression Chest X-Ray 07/30/23 14:28 IMPRESSION: Mild degree of vascular congestion. Borderline cardiomegaly. Electronically Signed: Brandon Cabrera MD at 14:40 EDT , Assessment & Plan Assessment/Plan (1) Atrial fibrillation with RVR: PLAN: Plan The patient is a 57 y/o M w/ PMHx: Obesity, PAF, CAD s/p CABG and PCI, HTN, HLD, Hx Sick sinus syndrome/Tachy-bradley syndrome s/p pacemaker status, ALICIA on BIPAP who presents to the [facility] ED on 07/30/23 with history of dyspnea worsening as well as increasing lower extremity swelling, abdominal swelling and weight gain notably more so over the last 2 weeks with reported arrhythmia specifically A-fib also ongoing for the last 2 weeks with history of previously having been on Multaq but switched to metoprolol however this was potentially months prior unfortunately not seeking evaluation for his cardiology services but eventually contacted his sales enablement manager office on day of presentation and it was their recommendation to present to the ED for evaluation. #1. Paroxsymal atrial fibrillation w/ RVR with resulting #2: EKG in ED w/ atrial fibrillation w/ RVR. Patient administered lopressor IV and cardizem 20 mg IV in the ED with transient improvement. Will admit to PCU, maintain on telemetry, obtain cardiac enzyme serial set, obtain magnesium level, obtain TSH level. Recent 06/30/2023 echocardiogram with normal LV size, LV systolic function lower limits of normal, mild concentric LVH, LVEF 50%, mildly enlarged left atrium thus will defer repeat. Continue patient eliquis regimen. If patient rate does not improvement with oral dose metoprolol now will transition to cardizem drip given at least initial improvement in the ED. If intractable low threshold to involve Cardiology if needed. #2. Acute Decompensated HFpEF: Likely secondary to #1 ongoing, poorly controlled. Patient administered IV lasix in the ED, will maintain on cardiac telemetry, obtain cardiac enzyme series, obtain serial EKGs, continue IV lasix diuresis, monitor I/Os, maintain on intake restriction, continue medical therapy, obtain TSH and magnesium level. Recent 06/30/2023 echocardiogram with normal LV size, LV systolic function lower limits of normal, mild concentric LVH, LVEF 50%, mildly enlarged left atrium thus will defer repeat. Place snug yo wraps. #3. CAD: Status post CABG x 3 (SHEIKH-D2, Sequential SVG-LPDA and OM2 12/02/2008;[id number]) and PCI 10/2018 second obtuse marginal branch as well as the saphenous vein graft to the second obtuse marginal branch), will continue aspirin, Eliquis, metoprolol, lisinopril although as noted may require transition to IV Cardizem drip given #1. Per current list not on statin therapy. #4. Hypertension: Continue home regimen including metoprolol, lisinopril, IV Lasix and as noted if necessary may transition to IV Cardizem drip, PRN hydralazine. #5. Hyperlipidemia: Not on statin therapy, FLP in a.m. #6. Hx Sick sinus syndrome/Tachy-bradley syndrome: s/p pacemaker status, encourage continued outpatient follow-up with Cardiology as previously arranged. #7. Obesity: Weight loss and lifestyle changes encouraged. #8. ALICIA: BiPAP nightly. #9. DVT prophylaxis: Will continue patient home Eliquis regimen. #10. CODE status: Patient HCPOA and living will are not in place but he notes his fianc?manoj Oneill would be his medical decision-maker if necessary. Discussed CODE status at length including difference between FULL code, DNR-CCA and DNR-CC status. Following discussions about the differences in these status, requested Full Code status. Advanced Care Planning Face to Face Time: 16 minutes. Charges/Coding Visit Charges Inpatient E&M: 04343 Init Hosp L3 Procedures Hospitalists Procedures: 52007 Advncd Care Plan 30 Min
[2023-07-30] MEDS: Metoprolol Tartrate 5 MG/5 ML Vial IV (17:22)
[2023-07-30] MEDS: Furosemide 40 MG/4 ML Vial IV (17:33)
[2023-07-30 18:04] LABS: Troponin-I HS 12 pg/mL (3.0-78.0)
[2023-07-30] MEDS: Metoprolol Tartrate 50 MG Tablet PO (18:41)
[2023-07-30 19:08] LABS: Magnesium 1.8 mg/dL (1.6-2.6)
[2023-07-30] MEDS: Diltiazem 125 MG in Dextrose 5%-Water (100mL Bag) 100 ML CONT INF (20:24)
[2023-07-30] MEDS: Fluticasone 0.05% 1 SPRAY NASAL.SRY NASAL (21:05)
[2023-07-30] MEDS: Amox/Clavulanate 875 MG Tablet PO (21:06)
[2023-07-30] MEDS: APIXABAN 5 MG TABLET PO (21:09)
[2023-07-30] MEDS: Atorvastatin Calcium 20 MG Tablet PO (21:09)
[2023-07-30] MEDS: Benzonatate 100 MG Capsule PO (21:09)
[2023-07-30 21:11] LABS: Troponin-I HS 12 pg/mL (3.0-78.0)
--- NOTE | 2023-07-30 23:45 | CPS ---
Pt refused BiPAP for tonight
[2023-07-31] VITALS (29 sets, daily range): BP systolic 101–124; BP diastolic 61–94; PULSE 81–104; RESP 15–23; TEMP 36.4–36.8; O2SAT 86–100; BMI 37.0
[2023-07-31] MEDS: Diltiazem 125 MG in Dextrose 5%-Water (100mL Bag) 100 ML 15 MG CONT INF (04:15)
[2023-07-31] MEDS: Benzonatate 100 MG Capsule PO ×3 (05:35→21:02)
[2023-07-31 07:02] LABS: Absolute Lymphocyte Count 1.75 X10^3/uL (0.83-4.51); Absolute Neutrophil Count 4.6 X10^3/uL (2.0-7.7); Basophil# 0.09 X10^3/uL; Basophil% 1.2 % (0-1); Eosinophil# 0.27 X10^3/uL; Eosinophils% 3.5 % (0-5); Hematocrit 45.9 % (40-54); Hemoglobin 14.8 g/dL (13.0-16.5); Lymphocyte # 1.75 X10^3/ul (0.83-4.51); Mean Corp Hgb Conc 32.2 g/dL (32-36); Mean Corpuscular Hgb 30.5 pg (27.0-32.0); Mean Corpuscular Volume 94.4 fL (80-94); Mean Platelet Vol. 10.4 fl (6.2-12.0); Monocyte% 11.8 % (0-10); NRBC Flagged by Analyzer 0 % (0-5); Neutrophil # 4.58 X10^3/uL (2.7-7.7); Neutrophil % 60.2 % (47-70); Platelet Count 187 K/mm3 (150-450); RBC Distribution Width SD 45.3 fl (35.1-43.9); Red Blood Count 4.86 M/mm3 (4.6-6.2); White Blood Count 7.6 K/mm3 (4.4-11.0)
--- NOTE | 2023-07-31 07:32 | EKG12_ITS ---
Test Reason : MORNING EKG Blood Pressure : / mmHG Vent. Rate : 093 BPM Atrial Rate : 000 BPM P-R Int : 000 ms QRS Dur : 092 ms QT Int : 272 ms P-R-T Axes : 000 065 263 degrees QTc Int : 338 ms Atrial fibrillation with frequent ventricular-paced complexes Nonspecific ST and T wave abnormality Abnormal ECG When compared with ECG of 30-JUL-2023 13:55, MANUAL COMPARISON REQUIRED, DATA IS UNCONFIRMED Confirmed by JANICE MIDDLETON ([id number]), field map editor FRANCISCA COATS ([id number]) on 08/04/2023 9:32:17 AM Referred By: Confirmed By:JANICE MIDDLETON
[2023-07-31 07:37] LABS: ALB/GLOB Ratio 1.1 RATIO (0.9-2.4); AST(SGOT) 33 U/L (15-37); Alanine Aminotransfer ALT/SGPT 34 U/L (16-61); Alkaline Phosphatase 89 U/L (45-117); Anion Gap 4 (5-15); BUN 20 mg/dL (7-18); BUN/Creat Ratio 15.9 RATIO (10-20); Calcium,Total 9.2 mg/dL (8.5-10.1); Chloride 102 mmol/L (98-107); Cholesterol 121 mg/dL (200); Creatinine, Serum 1.26 mg/dL (0.70-1.30); EST Glomerular Filtration Rate 63 mL/min (>60); Est Glom Filt Rate - Afr Amer 76 mL/min (>60); Estimated Creatinine Clearance 80.46 ml/min; Globulin 3.5 g/dL (2.2-4.2); Glucose 136 mg/dL (74-106); High Density Lipoprotein 40 mg/dL; Potassium 3.6 mmol/L (3.5-5.1); Protein, Total 7.5 g/dL (6.4-8.2); Sodium Level 136 mmol/L (136-145); Thyroid Stim Hormone (TSH) 1.42 uIU/mL (0.358-3.74); Triglycerides 85 mg/dL; Very Low Density Lipoprotein 17 mg/dL (5-40)
[2023-07-31] MEDS: Aspirin E.C. 81 MG Tablet PO (09:10)
[2023-07-31] MEDS: APIXABAN 5 MG TABLET PO ×2 (09:11→21:02)
[2023-07-31] MEDS: Lisinopril 5 MG Tablet PO (09:11)
[2023-07-31] MEDS: Furosemide 40 MG/4 ML Vial IV ×2 (09:11→17:36)
[2023-07-31] MEDS: Metoprolol Tartrate 50 MG Tablet PO ×2 (09:11→10:10)
[2023-07-31] MEDS: Fluticasone 0.05% 1 SPRAY NASAL.SRY NASAL ×2 (09:12→21:02)
--- NOTE | 2023-07-31 09:31 | CON.PCM.CA_ITS ---
Assessment & Plan Assessment/Plan (1) Atrial fibrillation with RVR: PLAN: Increase metoprolol to 100 mg twice daily. Change diltiazem to 60 mg p.o. every 6 hours. If he is able to tolerate it, then may switch to longer acting formulation. Continue apixaban. (2) Sick sinus syndrome: PLAN: Status post permanent pacemaker placement. (3) Pacemaker: PLAN: Continue following at the pacemaker clinic. (4) Acute on chronic heart failure with preserved ejection fraction (HFpEF): PLAN: Agree with diuretics. Continue beta-blockers. Lisinopril. Start on SGLT2 inhibitor. (5) Atherosclerotic heart disease of [place] coronary artery without angina pecto ris: QUALIFIERS: [place] vs. transplanted heart: [place] heart Qualified Code(s): I25.10 - Atherosclerotic heart disease of [place] coronary artery without angina pectoris PLAN: Status post CABG. (6) Essential hypertension: PLAN: Continue lisinopril, metoprolol and diltiazem. (7) HLD (hyperlipidemia): QUALIFIERS: Hyperlipidemia type: unspecified Qualified Code(s): E78.5 - Hyperlipidemia, unspecified PLAN: On atorvastatin. (8) ALICIA treated with BiPAP: PLAN: On BiPAP. HPI Consult Data Date of Consult: 07/31/23 HPI Narrative Reason for Consultation: Atrial fibrillation with rapid ventricular response HPI Narrative: This gentleman has past medical history significant for paroxysmal atrial fibrillation and sick sinus syndrome status post permanent pacemaker placement, HFpEF, coronary artery disease status post CABG, hypertension, obstructive sleep apnea and dyslipidemia. He has been admitted to the hospital with complaints of increasing shortness of breath over the last 2 to 3 weeks. Also complains of palpitations. Positive ankle edema. In the emergency room, the patient was noted to be in atrial fibrillation with rapid ventricular response. Subsequently has been started on diltiazem infusion. Also being treated with IV diuretics for CHF exacerbation. [facility] Medical History (Updated 07/30/23 @ 19:[address] Martha Madrid MD) Atherosclerotic heart disease of [place] coronary artery without angina pectoris Essential hypertension History of cardioversion (12/14/21) HLD (hyperlipidemia) Nonsustained paroxysmal ventricular tachycardia Obesity ALICIA treated with BiPAP PAF (paroxysmal atrial fibrillation) Sick sinus syndrome Tachy-bradley syndrome Home Medications aspirin 81 mg tablet,delayed release (Adult Low Dose Aspirin) [facility] [History Last Taken 07/30/23] hydrocodone-acetaminophen 5-325mg 5mg-325mg 0.5 tab PO DAILY PRN Pain 09/08/20 [History Last Taken 12/09/21] apixaban 5 mg tablet (Eliquis) 5 mg PO BID blood thinner #60 tabs 11/15/22 [Rx Last Taken 07/30/23] furosemide 40 mg tablet (Lasix) 40 mg PO DAILY water retention #180 tabs 01/31/23 [Rx Last Taken 07/30/23] lisinopril 5 mg tablet 5 mg PO DAILY #90 tabs 03/18/23 [Rx Last Taken 07/30/23] metoprolol tartrate 50 mg tablet 50 mg PO BID #180 tabs 03/18/23 [Rx Last Taken 07/30/23] simvastatin 40 mg tablet 40 mg PO QPM cholesterol #90 tabs 06/19/23 [Rx Last Taken 07/29/23] amoxicillin 875 mg-potassium clavulanate 125 mg tablet 1 tab PO BID 07/30/23 [History Last Taken 07/30/23] benzonatate 100 mg capsule 100 mg PO TID 07/30/23 [History Last Taken 07/30/23] testosterone 1 % (50 mg/5 gram) transdermal gel packet 1 packet transdermal DAILY 07/30/23 [History Last Taken 07/30/23] tizanidine 4 mg tablet 4 mg PO QHS PRN muscle spasm 07/30/23 [History Last Taken Unknown] Allergy/AdvReac Type Severity Reaction Status Date / Time chlorhexidine Allergy Itching,erickson Verified 07/30/23 13:40 [From ChloraPrep Clear] h isopropyl alcohol Allergy Itching,erickson Verified 07/30/23 13:40 [From ChloraPrep Clear] h Family History Father CAD (coronary artery disease) Diabetes Cancer Mother Diabetes Brother brain aneurysm rupture Surgical History H/O coronary artery bypass surgery (12/02/08) History of arthroscopy of left shoulder (03/2017) History of coronary artery stent placement (10/26/18) History of left heart catheterization (LHC) (10/26/18) History of tonsillectomy S/P cardiac pacemaker procedure Social History household members: spouse housing: house current occupational status: employed 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 No apparent distress. Obese. Heart sounds 1 and 2 noted. Irregularly irregular. Tachycardic. Chest clear to auscultation bilaterally. Alert oriented x 3. 2+ bilateral ankle edema. Risk Stratification Risk Stratification Applicable: No Objective Data Vital Signs: Vital Signs Temp Pulse Resp BP Pulse Ox O2 Del Method O2 Flow Rate 97.5 F L 102 H 18 124/89 H 97 Room Air 2 07/31/23 04:15 07/31/23 09:11 07/31/23 07:04 07/31/23 09:11 07/31/23 07:04 07/31/23 07:35 07/31/23 05:00 Oxygen Flow Rate (L/min) 2 Oxygen Delivery Method Room Air Weight: 250 lb 14.177 oz Body Mass Index (BMI) 37.0 Intake & Output: Intake and Output for Last 24 Hours 07/29/23 07/30/23 07/31/23 23:59 23:59 23:59 Intake Total 1036.83 / 1044.33 113.50 / 113.50 Output Total 900 / 900 Balance 136.83 / 144.33 113.50 / 113.50 Lab / Micro Data 07/31/23 06:30 07/31/23 06:30 Labs: Laboratory Results - last 24 hr 07/30/23 14:26: WBC 7.0, RBC 4.74, Hgb 14.3, Hct 44.7, MCV 94.3 H, MCH 30.2, MCHC 32.0, RDW Std Deviation 45.1 H, RDW Coeff of Ashwini 13.1, Plt Count 155, MPV 10.8, Immature Gran % (Auto) 0.300, Neut % (Auto) 59.3, Lymph % (Auto) 22.7, [place] % (Auto) 13.5 H, Eos % (Auto) 2.9, Baso % (Auto) 1.3 H, Absolute Neuts (auto) 4.1, Absolute Lymphs (auto) 1.58, Nucleated RBC % 0, Sodium 139, Potassium 3.8, Chloride 104, Carbon Dioxide 31.0, Anion Gap 4 L, BUN 22 H, Creatinine 1.25, Estim Creat Clear Calc 81.24, Est GFR (MDRD) Af Amer 76, Est GFR (MDRD) Non-Af 63, BUN/Creatinine Ratio 17.6, Glucose 102, Calcium 9.4, Total Bilirubin 1.10 H, Direct Bilirubin 0.34 H, AST 30, ALT 28, Alkaline Phosphatase 86, Troponin I High Sens 11, B-Natriuretic Peptide 228.2 H, Total Protein 7.3, Albumin 3.9, Globulin 3.4 07/30/23 17:26: Magnesium 1.8, Troponin I High Sens 07/30/23 20:44: Troponin I High Sens 07/31/23 06:30: WBC 7.6, RBC 4.86, Hgb 14.8, Hct 45.9, MCV 94.4 H, MCH 30.5, MCHC 32.2, RDW Std Deviation 45.3 H, RDW Coeff of [place]wini 13.0, Plt Count 187, MPV 10.4, Immature Gran % (Auto) 0.300, Neut % (Auto) 60.2, Lymph % (Auto) 23.0, [place] % (Auto) 11.8 H, Eos % (Auto) 3.5, Baso % (Auto) 1.2 H, Absolute Neuts (auto) 4.6, Absolute Lymphs (auto) 1.75, Nucleated RBC % 0, Sodium 136, Potassium 3.6, Chloride 102, Carbon Dioxide 30.0, Anion Gap 4 L, BUN 20 H, Creatinine 1.26, Estim Creat Clear Calc 80.46, Est GFR (MDRD) Af Amer 76, Est GFR (MDRD) Non-Af 63, BUN/Creatinine Ratio 15.9, Glucose 136 H, Calcium 9.2, Total Bilirubin 1.10 H, AST 33, ALT 34, Alkaline Phosphatase 89, Total Protein 7.5, Albumin 4.0, Globulin 3.5, Albumin/Globulin Ratio 1.1, Triglycerides 85, Cholesterol 121, LDL Cholesterol 64, VLDL Cholesterol 17, HDL Cholesterol 40, TSH 1.42 Cardiology Labs/Tests 07/30/23 14:26: WBC 7.0, RBC 4.74, Hgb 14.3, Hct 44.7, MCV 94.3 H, MCH 30.2, MCHC 32.0, Plt Count 155, MPV 10.8, Immature Gran % (Auto) 0.300, Neut % (Auto) 59.3, Lymph % (Auto) 22.7, [place] % (Auto) 13.5 H, Eos % (Auto) 2.9, Baso % (Auto) 1.3 H, Absolute Neuts (auto) 4.1, Nucleated RBC % 0, Sodium 139, Potassium 3.8, Chloride 104, Carbon Dioxide 31.0, Anion Gap 4 L, BUN 22 H, Creatinine 1.25, Est GFR (MDRD) Af Amer 76, Est GFR (MDRD) Non-Af 63, BUN/Creatinine Ratio 17.6, Glucose 102, Calcium 9.4, Total Bilirubin 1.10 H, Direct Bilirubin 0.34 H, B- Natriuretic Peptide 228.2 H 07/30/23 17:26: Magnesium 1.8 07/31/23 06:30: WBC 7.6, RBC 4.86, Hgb 14.8, Hct 45.9, MCV 94.4 H, MCH 30.5, MCHC 32.2, Plt Count 187, MPV 10.4, Immature Gran % (Auto) 0.300, Neut % (Auto) 60.2, Lymph % (Auto) 23.0, [place] % (Auto) 11.8 H, Eos % (Auto) 3.5, Baso % (Auto) 1.2 H, Absolute Neuts (auto) 4.6, Nucleated RBC % 0, Sodium 136, Potassium 3.6, Chloride 102, Carbon Dioxide 30.0, Anion Gap 4 L, BUN 20 H, Creatinine 1.26, Est GFR (MDRD) Af Amer 76, Est GFR (MDRD) Non-Af 63, BUN/Creatinine Ratio 15.9, Glucose 136 H, Calcium 9.2, Total Bilirubin 1.10 H, Triglycerides 85, Cholesterol 121, LDL Cholesterol 64, VLDL Cholesterol 17, HDL Cholesterol 40 Rhythm: EKG: ECHO: Stress Test: Cardiac Cath: PCI: CT Surgery: Holter monitor: EPS: PPM: CXR: Chest CT Scan: Radiography Diagnostic Testing: Radiology Impression Chest X-Ray 07/30/23 14:28 IMPRESSION: Mild degree of vascular congestion. Borderline cardiomegaly. Electronically Signed: Brandon Cabrera MD at 14:40 EDT ,
--- NOTE | 2023-07-31 09:49 | PN.HOSP_ITS ---
Reason for Visit Reason for Visit: Diagnoses Hyperlipidemia, unspecified (07/30/23) Obstructive sleep apnea (adult) (pediatric) (07/30/23) Essential (primary) hypertension (07/30/23) Atherosclerotic heart disease of [place] coronary artery without angina pectoris (07/30/23) Unspecified atrial fibrillation (07/30/23) Sick sinus syndrome (07/30/23) Acute on chronic diastolic (congestive) heart failure (07/30/23) Presence of cardiac pacemaker (07/30/23) Subjective Subjective Patient is a 57-year-old gentleman with multiple comorbidities including coronary artery disease status post CABG, hypertension paroxysmal A-fib who presented to the emergency department with increasing weight gain and bilateral lower extremity swelling. An assessment of acute congestive heart failure made admitted to a monitored bed for further management Objective Data Objective Data Vital Signs: Vital Signs Temp Pulse Resp BP Pulse Ox O2 Del Method O2 Flow Rate 97.5 F L 102 H 18 124/89 H 100 Room Air 2 07/31/23 04:15 07/31/23 09:11 07/31/23 07:04 07/31/23 09:11 07/31/23 09:36 07/31/23 09:36 07/31/23 05:00 Oxygen Flow Rate (L/min) 2 Oxygen Delivery Method Room Air Weight: 113.8 kg Body Mass Index (BMI) 37.0 Intake & Output: Intake and Output for Last 24 Hours 07/29/23 07/30/23 07/31/23 23:59 23:59 23:59 Intake Total 1036.83 / 1044.33 113.50 / 113.50 Output Total 900 / 900 Balance 136.83 / 144.33 113.50 / 113.50 Lab / Micro Data 07/31/23 06:30 07/31/23 06:30 Labs: Laboratory Results - last 24 hr 07/30/23 14:26: WBC 7.0, RBC 4.74, Hgb 14.3, Hct 44.7, MCV 94.3 H, MCH 30.2, MCHC 32.0, RDW Std Deviation 45.1 H, RDW Coeff of Ashwini 13.1, Plt Count 155, MPV 10.8, Immature Gran % (Auto) 0.300, Neut % (Auto) 59.3, Lymph % (Auto) 22.7, [place] % (Auto) 13.5 H, Eos % (Auto) 2.9, Baso % (Auto) 1.3 H, Absolute Neuts (auto) 4.1, Absolute Lymphs (auto) 1.58, Nucleated RBC % 0, Sodium 139, Potassium 3.8, Chloride 104, Carbon Dioxide 31.0, Anion Gap 4 L, BUN 22 H, Creatinine 1.25, Estim Creat Clear Calc 81.24, Est GFR (MDRD) Af Amer 76, Est GFR (MDRD) Non-Af 63, BUN/Creatinine Ratio 17.6, Glucose 102, Calcium 9.4, Total Bilirubin 1.10 H, Direct Bilirubin 0.34 H, AST 30, ALT 28, Alkaline Phosphatase 86, Troponin I High Sens 11, B-Natriuretic Peptide 228.2 H, Total Protein 7.3, Albumin 3.9, Globulin 3.4 07/30/23 17:26: Magnesium 1.8, Troponin I High Sens 07/30/23 20:44: Troponin I High Sens 07/31/23 06:30: WBC 7.6, RBC 4.86, Hgb 14.8, Hct 45.9, MCV 94.4 H, MCH 30.5, MCHC 32.2, RDW Std Deviation 45.3 H, RDW Coeff of Ashwini 13.0, Plt Count 187, MPV 10.4, Immature Gran % (Auto) 0.300, Neut % (Auto) 60.2, Lymph % (Auto) 23.0, [place] % (Auto) 11.8 H, Eos % (Auto) 3.5, Baso % (Auto) 1.2 H, Absolute Neuts (auto) 4.6, Absolute Lymphs (auto) 1.75, Nucleated RBC % 0, Sodium 136, Potassium 3.6, Chloride 102, Carbon Dioxide 30.0, Anion Gap 4 L, BUN 20 H, Creatinine 1.26, Estim Creat Clear Calc 80.46, Est GFR (MDRD) Af Amer 76, Est GFR (MDRD) Non-Af 63, BUN/Creatinine Ratio 15.9, Glucose 136 H, Calcium 9.2, Total Bilirubin 1.10 H, AST 33, ALT 34, Alkaline Phosphatase 89, Total Protein 7.5, Albumin 4.0, Globulin 3.5, Albumin/Globulin Ratio 1.1, Triglycerides 85, Cholesterol 121, LDL Cholesterol 64, VLDL Cholesterol 17, HDL Cholesterol 40, TSH 1.42 Radiography Diagnostic Testing: Radiology Impression Chest X-Ray 07/30/23 14:28 IMPRESSION: Mild degree of vascular congestion. Borderline cardiomegaly. Electronically Signed: Brandon Cabrera MD at 14:40 EDT Reading Location ID and State: [facility] / [place] , Service support , Physical Exam Narrative GENERAL: cooperative HEENT: Atraumatic; normocephalic EYES; Anicteric, Normal Conjunctiva NECK; supple, normal thyroid, RESPIRATORY: Diminished to auscultation CARDIOVASCULAR: Irregularly irregular, tachycardic GI: soft, normoactive bowel sounds, : No Renal angle tenderness; EXTREMITIES: Bilateral pedal edema, no clubbing, MUSCULOSKELETAL: no muscle wasting NEURO: Awake; no lateralizing signs. SKIN: No Rash PSYCH; Flat affect Assessment & Plan Assessment/Plan (1) Atrial fibrillation with RVR: PLAN: Plan Patient is a 57-year-old gentleman with multiple comorbidities including coronary artery disease status post CABG, hypertension paroxysmal A-fib who presented to the emergency department with increasing weight gain and bilateral lower extremity swelling. An assessment of acute congestive heart failure made admitted to a monitored bed for further management 1. Acute on chronic congestive heart failure with preserved ejection fraction ? Patient admitted to monitored bed, managed with strict input and output, daily weight, fluid restriction, low-sodium diet as well as diuretic therapy with furosemide 2. Paroxysmal A-fib with RVR ? Patient admitted to monitored bed started on Cardizem drip. Consult placed to cardiology patient seen by Dr. David adjustment made to patient medications. Patient is on systemic anticoagulation with apixaban did continue 3. Coronary artery disease ? With previous CABG and subsequent PCI with KAREN. Patient remains on guideline directed medical therapy 4. Tachybradycardia syndrome ? Status post pacemaker placement 5. Hypertension - Blood pressure controlled, home medications continued with dose adjustment as needed 6. Dyslipidemia -Patient is on statin therapy, continued at home dose 7. Obstructive sleep apnea ? Patient is on PAP therapy at night consistent use encouraged 8. Class II obesity with BMI of 37 ? Complicating care weight loss advised 9. Hyperglycemia ? Patient does not have any documented history of diabetes, ordered hemoglobin A1c 10. DVT prophylaxis ? Patient is on apixaban Time spent in the patient's overall evaluation,decision-making process, review of diagnostic data, adjustment of management, discussion with other providers, nursing nursing and ancillary staff involved in patient's care documentation, 52Minutes Charges/Coding Visit Charges Inpatient E&M: 95396 Subs Hosp L3
[2023-07-31] MEDS: Amox/Clavulanate 875 MG Tablet PO ×2 (09:58→17:36)
[2023-07-31] MEDS: dilTIAZem 60 MG Tablet 90 MG PO ×3 (11:12→23:48)
--- NOTE | 2023-07-31 14:45 | CASEMGMT ---
RN?CM?[employer] ADJUSTER?CM?to room to meet with patient for initial transition planning/care coordination?assessment.?RN?CM?introduced self and role at [facility].? Pt voices understanding and consents to?assessment?at this time.? Pt sitting up in chair in room in no distress at this time.? Pt is A/O at this time and answers all questions appropriately.?? Care providers, pharmacy, and demographics verified/updated at this time. PCP: Dr Coronado Specialists:Dr Enriquez-cardiology, Dr Marie-balta mgnt Preferred Pharmacy: [facility] Insurance: [employer] Prescription Benefit:?yes Living Will/HPOA:?Pt does not currently have LW/HCPOA and declines info at this time.? Pt made aware that he can contact as an out-pt and make appt in the future if he decides he would like to talk with someone about this or would like to utilize [facility] social work for advanced directive completion.? LNOK: 3 siblings. One sister is Shanna. Pt has no children and parents are . Living Arrangements: Lives w/his fiance in 2nd-story apt. Independent and denies issues w/stairs. Transportation:?Pt states drives self and states no transportation concerns at this time.? DME: States has the following DME:?BIPAP--fiance may be bringing this in tonight, BP machine. HHC/SNF: No hx of SNF in the past. He has had HHC. Pt made aware of [facility]. He declines wanting referral at this time. Pt wishes to return home and states has no concerns with going home at time of discharge. Advised pt to ask for?CM?if any further questions/concerns/needs arise.? Voices understanding. PLAN:??Home Syeda ROTHMANN?RN?CM
[2023-07-31] MEDS: Empagliflozin 10 MG Tablet PO (14:55)
[2023-07-31] MEDS: 0.9% Saline Lock 10 ML Syringe IV (17:44)
--- NOTE | 2023-07-31 20:06 | CPS ---
has own machine at home is not bringing in will use 2 l/m via nc at [facility]
[2023-07-31] MEDS: Metoprolol Tartrate 50 MG Tablet 100 MG PO (21:01)
[2023-07-31] MEDS: Atorvastatin Calcium 20 MG Tablet PO (21:02)
[2023-08-01] VITALS (11 sets, daily range): BP systolic 93–112; BP diastolic 57–84; PULSE 79–99; RESP 16; TEMP 36.1–36.9; O2SAT 95–100; BMI 36.1
[2023-08-01 06:39] LABS: Absolute Lymphocyte Count 2.02 X10^3/uL (0.83-4.51); Basophil# 0.07 X10^3/uL; Basophil% 0.9 % (0-1); Eosinophil# 0.31 X10^3/uL; Eosinophils% 4.2 % (0-5); Hematocrit 42.8 % (40-54); Hemoglobin 13.9 g/dL (13.0-16.5); Lymphocyte # 2.02 X10^3/ul (0.83-4.51); Lymphocyte % 27.3 % (19-41); Mean Corp Hgb Conc 32.5 g/dL (32-36); Mean Corpuscular Hgb 30.3 pg (27.0-32.0); Mean Corpuscular Volume 93.4 fL (80-94); Mean Platelet Vol. 10.7 fl (6.2-12.0); Monocyte# 0.96 X10^3/uL; NRBC Flagged by Analyzer 0 % (0-5); Neutrophil # 4.03 X10^3/uL (2.7-7.7); Neutrophil % 54.3 % (47-70); Platelet Count 183 K/mm3 (150-450); RBC Distribution Width SD 44.5 fl (35.1-43.9); Red Blood Count 4.58 M/mm3 (4.6-6.2); White Blood Count 7.4 K/mm3 (4.4-11.0)
[2023-08-01 07:02] LABS: Anion Gap 8 (5-15); BUN 22 mg/dL (7-18); BUN/Creat Ratio 18.2 RATIO (10-20); Calcium,Total 9.1 mg/dL (8.5-10.1); Chloride 103 mmol/L (98-107); Creatinine, Serum 1.21 mg/dL (0.70-1.30); EST Glomerular Filtration Rate 66 mL/min (>60); Est Glom Filt Rate - Afr Amer 79 mL/min (>60); Estimated Creatinine Clearance 82.75 ml/min; Glucose 103 mg/dL (74-106); Magnesium 2.1 mg/dL (1.6-2.6); Phosphorus 3.5 mg/dL (2.5-4.9); Potassium 3.6 mmol/L (3.5-5.1); Sodium Level 139 mmol/L (136-145)
[2023-08-01] MEDS: dilTIAZem 60 MG Tablet 90 MG PO ×2 (07:33→12:52)
[2023-08-01] MEDS: Benzonatate 100 MG Capsule PO ×3 (07:33→22:36)
--- NOTE | 2023-08-01 08:56 | PN.HOSP_ITS ---
Reason for Visit Reason for Visit: Diagnoses Hyperlipidemia, unspecified (07/30/23) Obstructive sleep apnea (adult) (pediatric) (07/30/23) Essential (primary) hypertension (07/30/23) Atherosclerotic heart disease of [place] coronary artery without angina pectoris (07/30/23) Unspecified atrial fibrillation (07/30/23) Sick sinus syndrome (07/30/23) Acute on chronic diastolic (congestive) heart failure (07/30/23) Presence of cardiac pacemaker (07/30/23) Subjective Subjective Patient seen heart rate still not well-controlled. Patient is negative fluid balance of 536 over the past 24 hours. Objective Data Objective Data Vital Signs: Vital Signs Temp Pulse Resp BP Pulse Ox O2 Del Method O2 Flow Rate 98.4 F 86 16 112/64 95 Nasal Cannula 2 08/01/23 03:00 08/01/23 03:00 08/01/23 03:00 08/01/23 03:00 08/01/23 06:50 08/01/23 06:50 08/01/23 06:50 Oxygen Flow Rate (L/min) 2 Oxygen Delivery Method Nasal Cannula Weight: 111.1 kg Body Mass Index (BMI) 36.1 Intake & Output: Intake and Output for Last 24 Hours 07/30/23 07/31/23 08/01/23 23:59 23:59 23:59 Intake Total 1036.83 / 1044.33 1265.83 / 1265.83 25 / 25 Output Total 900 / 900 500 / 500 1200 / 1200 Balance 136.83 / 144.33 765.83 / 765.83 -1175 / -1175 Lab / Micro Data 08/01/23 05:45 08/01/23 05:45 Labs: Laboratory Results - last 24 hr 08/01/23 05:45: WBC 7.4, RBC 4.58 L, Hgb 13.9, Hct 42.8, MCV 93.4, MCH 30.3, MCHC 32.5, RDW Std Deviation 44.5 H, RDW Coeff of Ashwini 13.0, Plt Count 183, MPV 10.7, Immature Gran % (Auto) 0.300, Neut % (Auto) 54.3, Lymph % (Auto) 27.3, [place] % (Auto) 13.0 H, Eos % (Auto) 4.2, Baso % (Auto) 0.9, Absolute Neuts (auto) 4.0, Absolute Lymphs (auto) 2.02, Nucleated RBC % 0, Sodium 139, Potassium 3.6, Chloride 103, Carbon Dioxide 28.0, Anion Gap 8, BUN 22 H, Creatinine 1.21, Estim Creat Clear Calc 82.75, Est GFR (MDRD) Af Amer 79, Est GFR (MDRD) Non-Af 66, BUN/Creatinine Ratio 18.2, Glucose 103, Calcium 9.1, Phosphorus 3.5, Magnesium 2.1 Physical Exam Narrative GENERAL: cooperative HEENT: Atraumatic; normocephalic EYES; Anicteric, Normal Conjunctiva NECK; supple, normal thyroid, RESPIRATORY: Diminished to auscultation CARDIOVASCULAR: Irregularly irregular, tachycardic GI: soft, normoactive bowel sounds, : No Renal angle tenderness; EXTREMITIES: Bilateral pedal edema, no clubbing, MUSCULOSKELETAL: no muscle wasting NEURO: Awake; no lateralizing signs. SKIN: No Rash PSYCH; Flat affect Assessment & Plan Assessment/Plan (1) Atrial fibrillation with RVR: PLAN: Plan Patient is a 57-year-old gentleman with multiple comorbidities including coronary artery disease status post CABG, hypertension paroxysmal A-fib who presented to the emergency department with increasing weight gain and bilateral lower extremity swelling. An assessment of acute congestive heart failure made admitted to a monitored bed for further management 1. Acute on chronic congestive heart failure with preserved ejection fraction ? Patient admitted to monitored bed, managed with strict input and output, daily weight, fluid restriction, low-sodium diet as well as diuretic therapy with furosemide ? 08/01/2023; subsequent adjustment made to patient diuretic therapy 2. Paroxysmal A-fib with RVR ? Patient admitted to monitored bed started on Cardizem drip. Consult placed to cardiology patient seen by Dr. David adjustment made to patient medications. Patient is on systemic anticoagulation with apixaban did continue ? 08/01/2023; Case was discussed with At rehab the day prior adjustment made to patient rate controlling agent with metoprolol being increased to 100 mg twic e daily and Cardizem switched to 60 mg every 6 hours. 3. Coronary artery disease ? With previous CABG and subsequent PCI with KAREN. Patient remains on guideline directed medical therapy 4. Tachybradycardia syndrome ? Status post pacemaker placement 5. Hypertension - Blood pressure controlled, home medications continued with dose adjustment as needed 6. Dyslipidemia -Patient is on statin therapy, continued at home dose 7. Obstructive sleep apnea ? Patient is on PAP therapy at night consistent use encouraged 8. Class II obesity with BMI of 37 ? Complicating care weight loss advised 9. Hyperglycemia ? Patient does not have any documented history of diabetes, ordered hemoglobin A1c 10. DVT prophylaxis ? Patient is on apixaban Time spent in the patient's overall evaluation,decision-making process, review of diagnostic data, adjustment of management, discussion with other providers, nursing nursing and ancillary staff involved in patient's care documentation, 50 Minutes Charges/Coding Visit Charges Inpatient E&M: 06509 [facility] Hosp L3
[2023-08-01] MEDS: APIXABAN 5 MG TABLET PO ×2 (09:12→22:37)
[2023-08-01] MEDS: Lisinopril 5 MG Tablet PO (09:12)
[2023-08-01] MEDS: Empagliflozin 10 MG Tablet PO (09:12)
[2023-08-01] MEDS: Aspirin E.C. 81 MG Tablet PO (09:12)
[2023-08-01] MEDS: Metoprolol Tartrate 50 MG Tablet 100 MG PO ×2 (09:12→22:36)
[2023-08-01] MEDS: Amox/Clavulanate 875 MG Tablet PO ×2 (09:12→17:15)
[2023-08-01] MEDS: 0.9% Saline Lock 10 ML Syringe IV ×2 (10:33→15:14)
[2023-08-01] MEDS: Furosemide 40 MG/4 ML Vial IV ×3 (10:33→22:37)
--- NOTE | 2023-08-01 12:19 | PN.CARD_ITS ---
<Statement entered by Lakisha Beckham MD - 08/01/23 16:02> Pt seen & evaluated w/JAYSHREE. I personally interviewed & exam the pt. I was involved in all aspects of pt's orders, interpretation of results & treatment Subjective Subjective Pt seen and examined. Feels better than yesterday. Is aware of elevated HRs. He feels his edema is better but it still there. Objective Data Vital Signs: Vital Signs Temp Pulse Resp BP Pulse Ox O2 Del Method O2 Flow Rate 97 F L 88 16 103/80 99 Room Air 2 08/01/23 09:00 08/01/23 10:32 08/01/23 09:00 08/01/23 10:32 08/01/23 09:00 08/01/23 09:00 08/01/23 06:50 Oxygen Flow Rate (L/min) 2 Oxygen Delivery Method Room Air Weight: 244 lb 14.937 oz Body Mass Index (BMI) 36.1 Intake & Output: Intake and Output for Last 24 Hours 07/30/23 07/31/23 08/01/23 23:59 23:59 23:59 Intake Total 1036.83 / 1044.33 1265.83 / 1265.83 25 Output Total 900 / 900 500 / 500 1200 / 1200 Balance 136.83 / 144.33 765.83 / 765.83 -1175 / -1175 Lab / Micro Data 08/01/23 05:45 08/01/23 05:45 Labs: Laboratory Results - last 24 hr 08/01/23 05:45: WBC 7.4, RBC 4.58 L, Hgb 13.9, Hct 42.8, MCV 93.4, MCH 30.3, MCHC 32.5, RDW Std Deviation 44.5 H, RDW Coeff of Ashwini 13.0, Plt Count 183, MPV 10.7, Immature Gran % (Auto) 0.300, Neut % (Auto) 54.3, Lymph % (Auto) 27.3, [place] % (Auto) 13.0 H, Eos % (Auto) 4.2, Baso % (Auto) 0.9, Absolute Neuts (auto) 4.0, Absolute Lymphs (auto) 2.02, Nucleated RBC % 0, Sodium 139, Potassium 3.6, Chloride 103, Carbon Dioxide 28.0, Anion Gap 8, BUN 22 H, Creatinine 1.21, Estim Creat Clear Calc 82.75, Est GFR (MDRD) Af Amer 79, Est GFR (MDRD) Non-Af 66, BUN/Creatinine Ratio 18.2, Glucose 103, Calcium 9.1, Phosphorus 3.5, Magnesium 2.1 Cardiology Labs/Tests 08/01/23 05:45: WBC 7.4, RBC 4.58 L, Hgb 13.9, Hct 42.8, MCV 93.4, MCH 30.3, MCHC 32.5, Plt Count 183, MPV 10.7, Immature Gran % (Auto) 0.300, Neut % (Auto) 54.3, Lymph % (Auto) 27.3, [place] % (Auto) 13.0 H, Eos % (Auto) 4.2, Baso % (Auto) 0.9, Absolute Neuts (auto) 4.0, Nucleated RBC % 0, Sodium 139, Potassium 3.6, Chloride 103, Carbon Dioxide 28.0, Anion Gap 8, BUN 22 H, Creatinine 1.21, Est GFR (MDRD) Af Amer 79, Est GFR (MDRD) Non-Af 66, BUN/Creatinine Ratio 18.2, Glucose 103, Calcium 9.1, Phosphorus 3.5, Magnesium 2.1 Rhythm: Atrial fib, with occasional demand pacing EKG: ECHO: Stress Test: Cardiac Cath: PCI: CT Surgery: Holter monitor: EPS: PPM: CXR: Chest CT Scan: Physical Exam Narrative GENERAL: cooperative HEENT: Atraumatic; normocephalic EYES; Anicteric, Normal Conjunctiva NECK; supple, normal thyroid, RESPIRATORY: Diminished to auscultation CARDIOVASCULAR: Irregularly irregular, tachycardic GI: soft, normoactive bowel sounds, : No Renal angle tenderness; EXTREMITIES: + 3 edema MUSCULOSKELETAL: no muscle wasting NEURO: Awake; SKIN: No Rash PSYCH; Flat affect Assessment & Plan Assessment/Plan (1) Atrial fibrillation with RVR: (2) Acute on chronic heart failure with preserved ejection fraction (HFpEF): (3) Atherosclerotic heart disease of [place] coronary artery without angina pectoris: QUALIFIERS: [place] vs. transplanted heart: [place] heart Qualified Code(s): I25.10 - Atherosclerotic heart disease of [place] coronary artery without angina pectoris (4) Pacemaker: PLAN: Plan Atrial fib: HR better controlled. Will continue with metoprolol 100 mg BID. Feel that he can tolerate long acting Cardizem. Will switch this. Will continue with anticoagulation Acute on chronic heart failure with preserved EF: Will continue with rate control, diuretics and SGL2. Will monitor renal function.When able recommend that he be switched to PO lasix. Feel that his elevated HR contributed to this. On an OP basis had obtained an echo to evlaute pulmonary pressures. We were undable to see this. Pt would benefit from a left heart cath to evaluate for ischemia and to estimate his pulmonary pressures. Did review this with Dr. Enriquez yesterday, he is Helistent to proceed with a right heart cath d/t his PPM. Will set this up as an op basis. After his heart cath will also refer to EP, pt may benefit from an ablation for his Afib. CAD; with his failed OP management of his CHF and AFib, would like to obtain a LHC, but feel that can be done on OP basis. PPM: will continue with interrogations in the office. Charges/Coding Visit Charges Inpatient E&M: 52455 Subs Hosp L3
--- NOTE | 2023-08-01 21:09 | CPS ---
Patient refused PAP therapy, not in room.
[2023-08-01] MEDS: Fluticasone 0.05% 1 SPRAY NASAL.SRY NASAL (22:35)
[2023-08-01] MEDS: Atorvastatin Calcium 20 MG Tablet PO (22:37)
[2023-08-02] MEDS: dilTIAZem 60 MG Tablet 90 MG PO ×2 (00:43→07:47)
[2023-08-02 04:52] VITALS: BMI 35.5
[2023-08-02 05:29] VITALS: BP 105/68; PULSE 87; RESP 16; TEMP 36.4; O2SAT 99
[2023-08-02] MEDS: Benzonatate 100 MG Capsule PO (06:42)
[2023-08-02] MEDS: Furosemide 40 MG/4 ML Vial IV (06:42)
--- NOTE | 2023-08-02 07:23 | PCM.PN.HOSP ---
Reason for Visit Reason for Visit: Diagnoses Hyperlipidemia, unspecified (07/30/23) Obstructive sleep apnea (adult) (pediatric) (07/30/23) Essential (primary) hypertension (07/30/23) Atherosclerotic heart disease of [place] coronary artery without angina pectoris (07/30/23) Unspecified atrial fibrillation (07/30/23) Sick sinus syndrome (07/30/23) Acute on chronic diastolic (congestive) heart failure (07/30/23) Presence of cardiac pacemaker (07/30/23) Subjective Subjective Patient seen improved clinically. Plan is for patient to be discharged home. Objective Data Objective Data Vital Signs: Vital Signs Temp Pulse Resp BP Pulse Ox O2 Del Method O2 Flow Rate 97.6 F L 87 16 105/68 99 Room Air 2 08/02/23 05:29 08/02/23 05:29 08/02/23 05:29 08/02/23 05:29 08/02/23 05:29 08/02/23 05:29 08/01/23 06:50 Oxygen Flow Rate (L/min) 2 Oxygen Delivery Method Room Air Weight: 109.2 kg Body Mass Index (BMI) 35.5 Intake & Output: Intake and Output for Last 24 Hours 07/31/23 08/01/23 08/02/23 23:59 23:59 23:59 Intake Total 1265.83 / 1265.83 505 / 505 Output Total 500 / 500 1200 / 2200 1000 / 1000 Balance 765.83 / 765.83 -695 / -1695 -1000 / -1000 Lab / Micro Data 08/02/23 07:43 08/02/23 07:43 Physical Exam Narrative GENERAL: cooperative HEENT: Atraumatic; normocephalic EYES; Anicteric, Normal Conjunctiva NECK; supple, normal thyroid, RESPIRATORY: Diminished to auscultation CARDIOVASCULAR: Irregularly irregular, tachycardic GI: soft, normoactive bowel sounds, : No Renal angle tenderness; EXTREMITIES: Bilateral pedal edema, no clubbing, MUSCULOSKELETAL: no muscle wasting NEURO: Awake; no lateralizing signs. SKIN: No Rash PSYCH; Flat affect Assessment & Plan Assessment/Plan (1) Atrial fibrillation with RVR: PLAN: Plan Patient is a 57-year-old gentleman with multiple comorbidities including coronary artery disease status post CABG, hypertension paroxysmal A-fib who presented to the emergency department with increasing weight gain and bilateral lower extremity swelling. An assessment of acute congestive heart failure made admitted to a monitored bed for further management 1. Acute on chronic congestive heart failure with preserved ejection fraction ? Patient admitted to monitored bed, managed with strict input and output, daily weight, fluid restriction, low-sodium diet as well as diuretic therapy with furosemide ? 08/01/2023; subsequent adjustment made to patient diuretic therapy ? 08/02/2023; patient responded to diuretic therapy. Patient will be discharged home to follow-up with cardiology. Plans for patient to undergo outpatient left and right heart catheterization 2. Paroxysmal A-fib with RVR ? Patient admitted to monitored bed started on Cardizem drip. Consult placed to cardiology patient seen by Dr. David adjustment made to patient medications. Patient is on systemic anticoagulation with apixaban did continue ? 08/01/2023; Case was discussed with At rehab the day prior adjustment made to patient rate controlling agent with metoprolol being increased to 100 mg twice daily and Cardizem switched to 60 mg every 6 hours. ? 08/02/2023. Patient heart rate relatively well-controlled. 3. Coronary artery disease ? With previous CABG and subsequent PCI with KAREN. Patient remains on guideline directed medical therapy 4. Tachybradycardia syndrome ? Status post pacemaker placement 5. Hypertension - Blood pressure controlled, home medications continued with dose adjustment as needed 6. Dyslipidemia -Patient is on statin therapy, continued at home dose 7. Obstructive sleep apnea ? Patient is on PAP therapy at night consistent use encouraged 8. Class II obesity with BMI of 37 ? Complicating care weight loss advised 9. Hyperglycemia ? Patient does not have any documented history of diabetes, ordered hemoglobin A1c 10. DVT prophylaxis ? Patient is on apixaban Time spent in the patient's overall evaluation,decision-making process, review of diagnostic data, adjustment of management, discussion with other providers, nursing nursing and ancillary staff involved in patient's care documentation, 35 Minutes
[2023-08-02 07:34] VITALS: BP 111/76; PULSE 86; RESP 14; TEMP 36.4; O2SAT 98
[2023-08-02] MEDS: Fluticasone 0.05% 1 SPRAY NASAL.SRY NASAL (07:44)
[2023-08-02] MEDS: APIXABAN 5 MG TABLET PO (07:45)
[2023-08-02] MEDS: Empagliflozin 10 MG Tablet PO (07:46)
[2023-08-02] MEDS: Amox/Clavulanate 875 MG Tablet PO (07:46)
[2023-08-02] MEDS: Aspirin E.C. 81 MG Tablet PO (07:46)
[2023-08-02 08:02] VITALS: O2SAT 96
[2023-08-02 08:17] LABS: Absolute Lymphocyte Count 1.68 X10^3/uL (0.83-4.51); Absolute Neutrophil Count 4.5 X10^3/uL (2.0-7.7); Basophil# 0.08 X10^3/uL; Basophil% 1.1 % (0-1); Eosinophil# 0.21 X10^3/uL; Eosinophils% 2.8 % (0-5); Hematocrit 47.4 % (40-54); Hemoglobin 15.7 g/dL (13.0-16.5); Lymphocyte # 1.68 X10^3/ul (0.83-4.51); Lymphocyte % 22.8 % (19-41); Mean Corp Hgb Conc 33.1 g/dL (32-36); Mean Corpuscular Hgb 30.5 pg (27.0-32.0); Mean Corpuscular Volume 92.2 fL (80-94); Mean Platelet Vol. 10.3 fl (6.2-12.0); Monocyte# 0.85 X10^3/uL; Monocyte% 11.5 % (0-10); NRBC Flagged by Analyzer 0 % (0-5); Neutrophil # 4.52 X10^3/uL (2.7-7.7); Neutrophil % 61.4 % (47-70); Platelet Count 233 K/mm3 (150-450); RBC Distribution Width CV 12.9 % (11.6-14.6); RBC Distribution Width SD 43.8 fl (35.1-43.9); Red Blood Count 5.14 M/mm3 (4.6-6.2); White Blood Count 7.4 K/mm3 (4.4-11.0)
[2023-08-02 08:35] LABS: Anion Gap 4 (5-15); BUN 28 mg/dL (7-18); BUN/Creat Ratio 19.6 RATIO (10-20); Calcium,Total 9.4 mg/dL (8.5-10.1); Chloride 100 mmol/L (98-107); Creatinine, Serum 1.43 mg/dL (0.70-1.30); EST Glomerular Filtration Rate 54 mL/min (>60); Est Glom Filt Rate - Afr Amer 65 mL/min (>60); Estimated Creatinine Clearance 69.41 ml/min; Glucose 119 mg/dL (74-106); Potassium 3.5 mmol/L (3.5-5.1); Sodium Level 137 mmol/L (136-145)
--- NOTE | 2023-08-02 09:16 | PCM.DC.SUM ---
Providers Date of Admission: 07/30/23 Date of Discharge: 08/02/23 Primary Care Physician: Dr. Philip Coronado MD Consultations 07/31/23 07:52 Consult: Cardiology Routine Consulting Provider: Areli David Reason for Consult: afib rvr on max cardizem signifigant cardiac hx EMERGENT Consult: Yes MD Notified: Yes Date Notified: 07/31/23 Time Notified: 07:52 Method of Notification: Text Reason For Visit: HF EXACERBATION, PAF RVR Diagnosis Discharge Diagnosis (1) Atrial fibrillation with RVR: Status: Acute Code(s): I48.91 - Unspecified atrial fibrillation Plan Patient is a 57-year-old gentleman with multiple comorbidities including coronary artery disease status post CABG, hypertension paroxysmal A-fib who presented to the emergency department with increasing weight gain and bilateral lower extremity swelling. An assessment of acute congestive heart failure made admitted to a monitored bed for further management 1. Acute on chronic congestive heart failure with preserved ejection fraction ? Patient admitted to monitored bed, managed with strict input and output, daily weight, fluid restriction, low-sodium diet as well as diuretic therapy with furosemide ? 08/01/2023; subsequent adjustment made to patient diuretic therapy ? 08/02/2023; patient responded to diuretic therapy. Patient will be discharged home to follow-up with cardiology. Plans for patient to undergo outpatient left and right heart catheterization 2D echo obtained on 06/30/2023; Normal LV size. Left ventricular systolic function is lower limits of normal. Mild concentric left ventricular hypertrophy. The left ventricular ejection fraction is 50 %. The left atrium is mildly enlarged. Contrast injection was performed. 2. Paroxysmal A-fib with RVR ? Patient admitted to monitored bed started on Cardizem drip. Consult placed to cardiology patient seen by Dr. David adjustment made to patient medications. Patient is on systemic anticoagulation with apixaban did continue ? 08/01/2023; Case was discussed with At rehab the day prior adjustment made to patient rate controlling agent with metoprolol being increased to 100 mg twice daily and Cardizem switched to 60 mg every 6 hours. ? 08/02/2023. Patient heart rate relatively well-controlled. 3. Coronary artery disease ? With previous CABG and subsequent PCI with KAREN. Patient remains on guideline directed medical therapy 4. Tachybradycardia syndrome ? Status post pacemaker placement 5. Hypertension - Blood pressure controlled, home medications continued with dose adjustment as needed 6. Dyslipidemia -Patient is on statin therapy, continued at home dose 7. Obstructive sleep apnea ? Patient is on PAP therapy at night consistent use encouraged 8. Class II obesity with BMI of 37 ? Complicating care weight loss advised 9. Hyperglycemia ? Patient does not have any documented history of diabetes, ordered hemoglobin A1c 10. DVT prophylaxis ? Patient is on apixaban Time spent in the patient's overall evaluation,decision-making process, review of diagnostic data, adjustment of management, discussion with other providers, nursing nursing and ancillary staff involved in patient's care documentation, 35 Minutes Medications at Discharge Home Medications aspirin 81 mg tablet,delayed release (Adult Low Dose Aspirin) 81 mg PO QDAY heart health 08/29/17 hydrocodone-acetaminophen 5-325mg 5mg-325mg 0.5 tab PO DAILY PRN Pain 09/08/20 apixaban 5 mg tablet (Eliquis) 5 mg PO BID blood thinner #60 tabs 11/15/22 lisinopril 5 mg tablet 5 mg PO DAILY #90 tabs 03/18/23 simvastatin 40 mg tablet 40 mg PO QPM cholesterol #90 tabs 06/19/23 benzonatate 100 mg capsule 100 mg PO TID 07/30/23 testosterone 1 % (50 mg/5 gram) transdermal gel packet 1 packet transdermal DAILY 07/30/23 tizanidine 4 mg tablet 4 mg PO QHS PRN muscle spasm 07/30/23 diltiazem HCl 60 mg tablet 90 mg (1.5 x 60 mg) PO Q6 #240 tabs 08/02/23 empagliflozin 10 mg tablet (Jardiance) 10 mg PO DAILY 30 days #30 tabs 08/02/23 furosemide 40 mg tablet 40 mg PO BID water retention #60 tabs 08/02/23 metoprolol tartrate 50 mg tablet 100 mg (2 x 50 mg) PO BID #60 tabs 08/02/23 potassium chloride 20 mEq tablet,extended release(part/cryst) 20 meq PO DAILY #30 tabs 08/02/23 Physical Exam Narrative GENERAL: cooperative HEENT: Atraumatic; normocephalic EYES; Anicteric, Normal Conjunctiva NECK; supple, normal thyroid, RESPIRATORY: Diminished to auscultation CARDIOVASCULAR: Irregularly irregular, tachycardic GI: soft, normoactive bowel sounds, : No Renal angle tenderness; EXTREMITIES: Bilateral pedal edema, no clubbing, MUSCULOSKELETAL: no muscle wasting NEURO: Awake; no lateralizing signs. SKIN: No Rash PSYCH; Flat affect Weight / BMI Weight Weight: 109.2 kg Body Mass Index (BMI) 35.5 ABG / Lab / Microbiology Data 08/02/23 07:43 08/02/23 07:43 Laboratory: Laboratory Results - last 24 hr 08/02/23 07:43: WBC 7.4, RBC 5.14, Hgb 15.7, Hct 47.4, MCV 92.2, MCH 30.5, MCHC 33.1, RDW Std Deviation 43.8, RDW Coeff of Ashwini 12.9, Plt Count 233, MPV 10.3, Immature Gran % (Auto) 0.400, Neut % (Auto) 61.4, Lymph % (Auto) 22.8, [place] % (Auto) 11.5 H, Eos % (Auto) 2.8, Baso % (Auto) 1.1 H, Absolute Neuts (auto) 4.5, Absolute Lymphs (auto) 1.68, Nucleated RBC % 0, Sodium 137, Potassium 3.5, Chloride 100, Carbon Dioxide 33.0 H, Anion Gap 4 L, BUN 28 H, Creatinine 1.43 H, Estim Creat Clear Calc 69.41, Est GFR (MDRD) Af Amer 65, Est GFR (MDRD) Non-Af 54 L, BUN/Creatinine Ratio 19.6, Glucose 119 H, Calcium 9.4 D/C Instructions Discharge Diet: Low fat / Low cholesterol, 8 Cup Fluid Restriction and 2000 mg Sodium Diet Discharge Activity: Return to Normal Activity Call your doctor if you observe: Fever of 101 or Higher, Shortness of breath, Fainting spells and Chest pain Meaningful Use Info Meaningful Use Meaningful Use Diagnoses (Choose all that apply): CHF CHF JOSEY/ARB ordered at discharge?: Yes Documented LVEF (%): 50 Ischemic Stroke Statin Dosing Therapy Reference: STATIN DOSE THERAPY REFERENCE: * Patients > 75 years receive moderate or high dose statin therapy. * Patients 75 years or YOUNGER should receive HIGH intensity statin dose unless contraindicated. You will be required to document reason for non-treatment if statin daily dose does not meet guidelines. HIGH DOSE STATIN THERAPY DAILY Atorvastatin > than or = to 40 mg Rosuvastatin > than or = to 20 mg Amlodipine + Atorvastatin > than or = to 2.5/40 mg Ezetimibe + Simvastatin 10/80 mg Simvastatin 80mg Discharge Plan Admission Admit Date/Time: 07/30/23 16:54 Attending Provider: Shay Dong Primary Care Provider: Philip Coronado Consulting Providers: Martha Madrid; Areli David Discharge Orders/Prescriptions Prescriptions: New diltiazem HCl 60 mg Tablet 90 mg PO Q6 Qty: 240 0RF Jardiance 10 mg Tablet 10 mg PO DAILY 30 Days Qty: 30 0RF potassium chloride 20 mEq tablet,ER particles/crystals 20 meq PO DAILY Qty: 30 0RF Continued aspirin [Adult Low Dose Aspirin] 81 mg tablet,delayed release (DR/EC) 81 mg PO QDAY hydrocodone-acetaminophen 5-325 mg tablet 0.5 tab PO DAILY PRN (Reason: Pain) benzonatate 100 mg capsule 100 mg PO TID testosterone 1 % (50 mg/5 gram) gel in packet 1 packet transdermal DAILY tizanidine 4 mg tablet 4 mg PO QHS PRN (Reason: muscle spasm) Eliquis 5 mg tablet 5 mg PO BID Qty: 60 11RF Hold Instructions: Resume on 05/18/22. lisinopril 5 mg tablet 5 mg PO DAILY Qty: 90 3RF simvastatin 40 mg tablet 40 mg PO QPM Qty: 90 3RF Changed furosemide 40 mg tablet 40 mg PO BID Qty: 60 0RF metoprolol tartrate 50 mg tablet 100 mg PO BID Qty: 60 0RF Discontinued amoxicillin-pot clavulanate 875-125 mg tablet 1 tab PO BID Referrals / Follow Up: Areli David MD [Med Staff - Active Staff] - Within 2 Weeks Philip Coronado MD [Primary Care Provider] - Within 2 Weeks Disposition Disposition (needs filled in before D/C Order can be placed): Home, Self Care Charges/Coding Visit Charges Inpatient E&M: 64699 Disch Hosp >30min
[2023-08-02 09:59] VITALS: BP 100/70; PULSE 64; RESP 14; TEMP 36.6; O2SAT 99
[2023-08-02 10:03] VITALS: BP 100/70; PULSE 64
[2023-08-02] MEDS: Metoprolol Tartrate 50 MG Tablet 100 MG PO (10:03)
== END 2023-08-02 11:31 | disposition home or self-care (01) | DRG 291 ==
LOC: ED 14:14 → PCU 17:36
PROVIDERS: Admitting Provider Family Medicine; Emergency Provider Student in an Organized Health Care Education/Training Program; PCP Family Medicine; Visit Provider Internal Medicine
DX: I11.0 Hypertensive heart disease with heart failure (principal); I50.33 Acute on chronic diastolic (congestive) heart failure; I49.5 Sick sinus syndrome; Z79.01 Long term (current) use of anticoagulants; I48.0 Paroxysmal atrial fibrillation; E78.5 Hyperlipidemia, unspecified; G47.33 Obstructive sleep apnea (adult) (pediatric); I25.10 Atherosclerotic heart disease of native coronary artery without angina pectoris; E66.9 Obesity, unspecified; Z95.1 Presence of aortocoronary bypass graft; R73.9 Hyperglycemia, unspecified; Z68.37 Body mass index [BMI] 37.0-37.9, adult; Z79.82 Long term (current) use of aspirin; Z79.899 Other long term (current) drug therapy; Z95.0 Presence of cardiac pacemaker; Z95.5 Presence of coronary angioplasty implant and graft
CPT/HCPCS: 36415; 71045; 80048; 80053; 80061; 80076; 83735; 83880; 84100; 84443; 84484; 85025; 93005; 94668; 94762; 97802; 99285; A4216; J1940

== ENCOUNTER → 2023-08-06 | Outpatient (CLI) | payer OTHER, SELFPAY ==
[2018-10-26 11:39] VITALS: BMI 38.9
[2023-08-06 11:32] LABS: Color, Urine Yellow (Yellow); Glucose, Dipstick 1000 mg/dl (Normal); Ketone-Dipstick Negative (Negative); Leukocyte Esterase-Dipstick Negative /ul (Negative); Nitrite-Dipstick Negative (Negative); Occult Blood-Urine Negative /ul (Negative); Protein-Dipstick Negative (Negative); Urine Bilirubin Dipstick Negative (Negative); Urine Clarity Clear (Clear); Urine Urobilinogen Normal (Normal)
[2023-08-06 11:45] LABS: Amphetamine Urine VISTA NEGATIVE (<1000 ng/mL); Barbiturate Urine VISTA NEGATIVE (< 200 ng/mL); Benzodiazepine Urine VISTA NEGATIVE (< 200 ng/mL); Cocaine Urine VISTA NEGATIVE (< 300 ng/mL); Ecstacy Urine VISTA NEGATIVE (< 500 ng/mL); Methadone Urine VISTA NEGATIVE (< 300 ng/mL); PCP Urine VISTA NEGATIVE (< 25 ng/mL); THC Urine VISTA NEGATIVE (< 50 ng/mL); Vista UDS pH Range 5
== END | disposition home or self-care (01) ==
LOC: LAB 10:49
PROVIDERS: PCP Family Medicine; Referring Provider Anesthesiology Pain Medicine; Visit Provider Anesthesiology Pain Medicine
DX: F11.20 Opioid dependence, uncomplicated (principal)
CPT/HCPCS: 80307; 81002

== ENCOUNTER 2023-08-19 14:55 | Observation (INO) | payer OTHER, SELFPAY ==
[2018-10-26 11:39] VITALS: BMI 38.9
--- NOTE | 2023-08-14 11:39 | RAD_ITS ---
STUDY: X-RAY CHEST REASON FOR EXAM: Male, 57 years old. Dyspnea on exertion. TECHNIQUE: Frontal and lateral views of the chest. COMPARISON: July 30, 2023 FINDINGS: Stable cardiomegaly, dual lead cardiac pacer, sternotomy wires, prominent central pulmonary arteries, mild hyperinflation, healed granulomatous calcifications, thoracic osteopenia with anterior wedge compression deformity of a lower thoracic vertebral body and increased kyphosis. No acute or emergent finding. No abnormality of the visualized soft tissue structures of the upper abdomen. RAD/Chest PA and Lateral IMPRESSION: Stable chest with no acute or emergent finding. Electronically Signed: Jerry Tyler MD at 14:21 EDT ,
[2023-08-14 12:47] LABS: Absolute Lymphocyte Count 2.08 X10^3/uL (0.83-4.51); Absolute Neutrophil Count 6.3 X10^3/uL (2.0-7.7); Basophil# 0.08 X10^3/uL; Basophil% 0.8 % (0-1); Hematocrit 44.7 % (40-54); Hemoglobin 14.4 g/dL (13.0-16.5); Lymphocyte # 2.08 X10^3/ul (0.83-4.51); Lymphocyte % 20.6 % (19-41); Mean Corp Hgb Conc 32.2 g/dL (32-36); Mean Corpuscular Hgb 30.1 pg (27.0-32.0); Mean Corpuscular Volume 93.3 fL (80-94); Monocyte# 1.39 X10^3/uL; Monocyte% 13.8 % (0-10); NRBC Flagged by Analyzer 0 % (0-5); Neutrophil # 6.25 X10^3/uL (2.7-7.7); Platelet Count 225 K/mm3 (150-450); RBC Distribution Width CV 12.9 % (11.6-14.6); RBC Distribution Width SD 44.1 fl (35.1-43.9); Red Blood Count 4.79 M/mm3 (4.6-6.2); White Blood Count 10.1 K/mm3 (4.4-11.0)
[2023-08-14 13:10] LABS: Anion Gap 4 (5-15); BUN 31 mg/dL (7-18); BUN/Creat Ratio 20.9 RATIO (10-20); Calcium,Total 9.5 mg/dL (8.5-10.1); Chloride 105 mmol/L (98-107); Creatinine, Serum 1.48 mg/dL (0.70-1.30); EST Glomerular Filtration Rate 52 mL/min (>60); Est Glom Filt Rate - Afr Amer 63 mL/min (>60); Glucose 100 mg/dL (74-106); Potassium 3.9 mmol/L (3.5-5.1); Sodium Level 141 mmol/L (136-145)
[2023-08-14 13:29] LABS: BNP,B-Type NATRIURETIC PEPTIDE 215.2 pg/mL (0-100)
[2023-08-18 08:49] VITALS: BMI 36.9
[2023-08-19] VITALS (15 sets, daily range): BP systolic 110–158; BP diastolic 76–123; PULSE 87–127; RESP 13–28; TEMP 36.3–36.8; O2SAT 90–95
--- NOTE | 2023-08-19 15:12 | CL.I_ITS ---
Patient Name: BHARAT HOLLY Study Date: 08/19/2023 Performing: Areli David MD Ht: 69 inches 175.26 cm : 1965 Wt: 250 lbs 113.4 kg Age: 57 Gender: male BSA: 2.27 PROCEDURE(S) PERFORMED IC14-(24121/C9604)GRAFT-KAREN AND/OR PTCA, SINGLE GRAFT CLINICAL PROFILE AND CO-MORBIDITIES Indications: Worsening Angina Heart Failure: None Angina Classification Anginal Classification w/in 2 Weeks: CCS III CONCLUSIONS Successful KAREN Mid SVG to OM using Araceli Cheshire 3.0x15 mm RECOMMENDATIONS Continue Patient's Apixaban Plavix for at least 12 months DESCRIPTION OF PROCEDURE The patient arrived to the procedure lab. The risks and benefits of the procedure as well as a full description of our services here and current unavailability of surgical backup were fully explained to the patient and/or their significant other prior to the catheterization. The Timeout was completed, verifying the correct patient and procedure. The patient's procedural site was prepped and draped in the usual fashion. Local anesthetic was given subcutaneously to left radial region with Lidocaine 2%. Local anesthetic was given subcutaneously to right radial region with Lidocaine 2% Using a modified Seldinger technique,arterial access was obtained via the left radial artery, a 6 Fr fistula sheath was inserted., arterial access was obtained via the right radial artery, a 6Fr sheath was inserted. Left internal mammary artery graft to the DIAG 2 selective angiography was performed in multiple views using a 5 Fr. IM catheter. Left Coronary Artery selective angiography was performed in multiple views using a 5 Fr. 4.0 [place] catheter. Sequential Saphenous Vein graft to the LPDA and OM 2 selective angiography was performed in multiple views using a 5 Fr. 4.0 [place] catheter. AL 0.75 Guide catheter was inserted and engaged into the SVG to the Lt PDA. Runthrough Guide wire was advanced to the SVG to Left PDA. 3.0 x 15 Cheshire Araceli Drug Eluting stent was inserted. Drug Eluting stent was advanced across the lesion in the graft to the Lt PDA. Angiogram performed post stent deployment. The arterial sheath was pulled and a TR Band was applied for hemostasis, 11cc air. The arterial sheath was pulled and a TR Band was applied for hemostasis. The arterial sheath was pulled and a TR Band was applied for hemostasis 14cc air INTERVENTION INFORMATION LESION SITE: Vein > to 1st OM Segment Number: 20-First obtuse marginal branch segment - 1st OM , Lesion Location: Body Lesion Complexity: High/C, lesion length: 10 mm, culprit lesion: Yes Pre Stenosis: 80 % Pre intervention HOLA flow: 3 PROCEDURE: Drug Eluting Stent Post Stenosis: 0 % Post intervention HOLA flow: 3 Lesion Devices: Cordis 6 Fr AL.75 100cm Guide Catheter Terumo .014 180cm Runthrough Extra Floppy straight Medtronic 3.0 x 15 ARACELI FRONTIER KAREN COMPLICATIONS No Complications PROCEDURE MEDICATIONS Fentanyl 50 mcg IV Versed 1 mg IV Fentanyl 25 mcg IV Versed 1 mg IV Versed 1 mg IV Fentanyl 50 mcg IV Oxygen: 2 L/min via nasal cannula Heparin given IA 08/19/2023 08:49:24 Heparin given IA 08/19/2023 08:49:24 Heparin 6000 unit(s) IV 08/19/2023 14:40:35 Heparin 6000 unit(s) IV 08/19/2023 14:49:10 Plavix 600 mg PO 08/19/2023 09:48:29 Verapamil 2.5mg, Ntg 100mcgs, 3000 units of Heparin given IA 08/19/2023 08:49:24 SUMMARY OF HEMODYNAMIC DATA Time AIR REST ECG 07:51:27 AO 116/85 (98) SA 08:52:04 ECG 14:20:59 Signed By Areli David MD On 08/19/2023 15:12:13 Areli David MD
[2023-08-19 15:15] LABS: ACT Activated Clotting Time 293 sec (74-137)
[2023-08-19 15:15] LABS: ACT Activated Clotting Time 183 sec (74-137)
--- NOTE | 2023-08-19 15:20 | DCINST_ITS ---
Discharge Instructions Diet Discharge Diet: Low fat / Low cholesterol Activity Discharge Activity: Return to Normal Activity Dressing / Incision Call your doctor if your incision/area has: Continuous Slow Oozing, Sudden Increased Bleeding, Increased Pain/ Swelling, Increased Redness, Foul Smelling Discharge and Swelling at the incision site Call your doctor if you observe: Fever of 101 or Higher, Coldness, Increased Pain, Numbness or Tingling and Change in Color Follow Up Care Please Follow Up With: Mina Enriquez MD When: 2-4 weeks Test Results: Test results from this visit will be discussed in further detail at your follow- up appointment, if applicable. Discharge Plan Admission Admit Date/Time: 08/19/23 14:55 Attending Provider: Mina Enriquez Primary Care Provider: Philip Coronado Consulting Providers: Lissette Lord NP Discharge Orders/Prescriptions Prescriptions: New clopidogrel 75 mg Tablet 75 mg PO DAILY Qty: 30 11RF Continued hydrocodone-acetaminophen 5-325 mg tablet 0.5 tab PO DAILY PRN (Reason: Pain) cefuroxime axetil 500 mg tablet 500 mg PO BID doxycycline hyclate 100 mg tablet 100 mg PO BID testosterone 1 % (50 mg/5 gram) gel in packet 1 packet transdermal DAILY tizanidine 4 mg tablet 4 mg PO QHS PRN (Reason: muscle spasm) Jardiance 10 mg Tablet 10 mg PO DAILY 30 Days Qty: 30 0RF Eliquis 5 mg tablet 5 mg PO BID Qty: 60 11RF Hold Instructions: Resume on 05/18/22. benzonatate 100 mg capsule 100 mg PO TID PRN (Reason: cough) diltiazem HCl [Cartia XT] 240 mg capsule,extended release 24hr 240 mg PO DAILY Qty: 30 11RF furosemide 40 mg tablet 40 mg PO BID Qty: 60 11RF metoprolol tartrate 100 mg tablet 100 mg PO BID Qty: 60 11RF atorvastatin 40 mg tablet 40 mg PO QHS Qty: 30 11RF potassium chloride 20 mEq tablet,ER particles/crystals 20 meq PO DAILY Qty: 60 11RF Discontinued aspirin [Adult Low Dose Aspirin] 81 mg tablet,delayed release (DR/EC) 81 mg PO QDAY Referrals / Follow Up: Philip Coronado MD [Primary Care Provider] - Disposition Disposition (needs filled in before D/C Order can be placed): Home, Self Care
--- NOTE | 2023-08-19 16:15 | EKG12_ITS ---
Test Reason : A-FIB RVR Blood Pressure : / mmHG Vent. Rate : 123 BPM Atrial Rate : 000 BPM P-R Int : 000 ms QRS Dur : 094 ms QT Int : 354 ms P-R-T Axes : 000 075 -79 degrees QTc Int : 506 ms Atrial fibrillation with rapid ventricular response with occasional ventricular-paced complexes ST & T wave abnormality, consider inferolateral ischemia Abnormal ECG When compared with ECG of 19-AUG-2023 16:08, MANUAL COMPARISON REQUIRED, DATA IS UNCONFIRMED Confirmed by MARIEL ROJAS, MINA ([id number]), graphic editor MANUEL RIVERA ([id number]) on 08/20/2023 1:08:44 PM Referred By: Mina Enriquez Confirmed By:MINA ENRIQUEZ MD
[2023-08-19] MEDS: Furosemide 40 MG Tablet PO (17:06)
[2023-08-19] MEDS: 0.9% Normal Saline (1000mL) 1,000 ML 100 ML IV (17:07)
[2023-08-19] MEDS: dilTIAZem 25 MG/5 ML Vial 20 MG IV BOLUS (18:00)
--- NOTE | 2023-08-19 18:46 | CL.D_ITS ---
Patient Name: BHARAT HOLLY Study Date: 08/19/2023 Performing: Mina Enriquez MD Ht: 69 inches 175.26 cm : 1965 Wt: 250.3 lbs 113.4 kg Age: 57 Gender: male BSA: 2.27 PROCEDURE(S) PERFORMED DC04-(43795)LHC/COR/CABG IC14-(05058/C9604)GRAFT-KAREN AND/OR PTCA, SINGLE GRAFT CLINICAL PROFILE AND INDICATIONS Indications: Worsening Angina, Suspected CAD Heart Failure: NYHA Class: 2, Newly Diagnosed: No, Heart Failure Type: Diastolic Stress/Imaging Stress/Image Study Performed: No Angina Classification Anginal Classification w/in 2 Weeks: CCS III CONCLUSIONS Atrial fibrillation. Coronary disease with patent SHEIKH to the diagonal vessel, occluded left anterior descending artery, moderately severely diseased circumflex artery, patent saphenous vein graft to the obtuse marginal branch and posterior descending artery previously stented with patent stent in proximal stenotic lesion RECOMMENDATIONS Referred for immediate PCI DESCRIPTION OF PROCEDURE The patient arrived to the procedure lab. The risks and benefits of the procedure as well as a full description of our services here and current unavailability of surgical backup were fully explained to the patient and/or their significant other prior to the catheterization. The Timeout was completed, verifying the correct patient and procedure. The patient's procedural site was prepped and draped in the usual fashion. Local anesthetic was given subcutaneously to left radial region with Lidocaine 2%. Local anesthetic was given subcutaneously to right radial region with Lidocaine 2%. Using a modified Seldinger technique, arterial access was obtained via the left radial artery, a 6 Fr fistula sheath was inserted., arterial access was obtained via the right radial artery, a 6Fr sheath was inserted. Left internal mammary artery graft to the DIAG 2 selective angiography was performed in multiple views using a 5 Fr. IM catheter. Left Coronary Artery selective angiography was performed in multiple views using a 5 Fr. 4.0 [place] catheter. Sequential Saphenous Vein graft to the LPDA and OM 2 selective angiography was performed in multiple views using a 5 Fr. 4.0 [place] catheter.The arterial sheath was pulled and a TR Band was applied for hemostasis, 11cc air. The arterial sheath was pulled and a TR Band was applied for hemostasis. The arterial sheath was pulled and a TR Band was applied for hemostasis 14cc air CORONARY ANGIOGRAPHY DOMINANCE: Left Dominant LEFT HEART ASSESSMENT Left Ventricular Ejection Fraction: by Echo 45 % Depressed Left Ventricular systolic function LEFT MAIN: Angiographically normal LEFT ANTERIOR DESCENDING ARTERY: This vessel appears to be totally occluded in the proximal to mid segment. CIRCUMFLEX ARTERY: This is a large dominant vessel. Gives off a first proximal AV groove branch with 90% stenosis. The circumflex artery continues with an obtuse marginal branch which is diffusely diseased bifurcating into 2 branches with a superior branch having a diffuse 70% stenotic lesion. RIGHT CORONARY ARTERY: Previously noted to be nondominant. GRAFTS: SHEIKH graft to the 1st Diagonal This vessel is patent patent close the distal anastomotic site is a 40 to 50% stenotic lesion. The diagonal vessel then retrogradely fills part of the LAD. There is a high-grade stenosis noted just prior to the anastomotic point. Sequential graft to the Sequential saphenous vein graft to the obtuse marginal branch and posterior descending artery is noted in this vessel was previously stented with a stent to be patent. More proximal 70 to 80% stenotic lesion is noted. COMPLICATIONS No Complications PROCEDURE MEDICATIONS Fentanyl 50 mcg IV Versed 1 mg IV Fentanyl 25 mcg IV Versed 1 mg IV Versed 1 mg IV Fentanyl 50 mcg IV Oxygen: 2 L/min via nasal cannula Heparin given IA 08/19/2023 08:49:24 Heparin given IA 08/19/2023 08:49:24 Heparin 6000 unit(s) IV 08/19/2023 14:40:35 Heparin 6000 unit(s) IV 08/19/2023 14:49:10 Plavix 600 mg PO 08/19/2023 09:48:29 Verapamil 2.5mg, Ntg 100mcgs, 3000 units of Heparin given IA 08/19/2023 08:49:24 SUMMARY OF HEMODYNAMIC DATA Time AIR REST ECG 07:51:27 AO 116/85 (98) SA 08:52:04 ECG 14:20:59 Signed By Mina Enriquez MD On 08/19/2023 18:45:48 Mina Enriquez MD
[2023-08-19] MEDS: Furosemide 40 MG/4 ML Vial IV (19:09)
[2023-08-19] MEDS: Metoprolol Tartrate 100 MG Tablet PO (20:27)
[2023-08-19] MEDS: Atorvastatin Calcium 40 MG Tablet PO (20:27)
--- NOTE | 2023-08-19 23:00 | NURSING ---
TR band off, dressing applied c/d/i, no bleeding noted at site after dressing application, small bruise above cath site noted-soft to touch
[2023-08-20] MEDS: APIXABAN 5 MG TABLET PO ×2 (00:31→09:17)
[2023-08-20] MEDS: dilTIAZem 25 MG/5 ML Vial 20 MG IV BOLUS (02:45)
[2023-08-20 03:08] VITALS: BP 125/89; PULSE 98; RESP 17; TEMP 36.7; O2SAT 96
[2023-08-20 03:13] VITALS: O2SAT 96
[2023-08-20] MEDS: dilTIAZem CD 120 MG Capsule PO (03:37)
[2023-08-20 06:24] VITALS: BP 128/82; PULSE 129
[2023-08-20] MEDS: Metoprolol Tartrate 100 MG Tablet PO (06:24)
[2023-08-20] MEDS: dilTIAZem CD 240 MG Capsule PO (06:24)
[2023-08-20 08:02] VITALS: BP 116/92; PULSE 101; RESP 18; TEMP 36.4; O2SAT 96
--- NOTE | 2023-08-20 08:12 | CRPHASE1_ITS ---
Patient Communication Patient Information Former Patient:: Phase II PHII Cardiac Rehab Discussed with Patient:: Yes Guide to Cardiac Rehab Given to Patient:: Yes Cardiac Rehab Facility Choice List Given to Patient:: Yes Communication to Cardiac Rehab Choice Program [facility] CR PHII:: Communication Given to CR Filemaker Developer:: Areli David Phase II Cardiac Rehab:: Yes Sessions:: 36 sessions - 3 days/wk, 12 weeks Cardiac Rehabilitation Info Program Information Cardiac Rehabilitation Program Information: Cardiac Rehab The cardiac rehab team at [facility] consists of highly skilled exercise physiologists, nurses, respiratory therapists and physicians working together with you. Our purpose is to help you have a full recovery and achieve the goals you set for yourself. Over the years many of our patients have returned to activities they assumed they would never do again! We can help restore your confidence and motivation to make lifestyle changes that can have a significant impact on your health and quality of life! We can help answer questions and concerns you may have about exercise, lifestyle, medications, diet, stress and anxiety which are common following a hospitalization. WE monitor ECG and vital signs during exercise and discuss your progress with you and report to your physician(s). Cardiac Rehab is proven to help reduce readmissions, improve functional capacity and lower recurrence of problems with your heart. Our Cardiac Rehab program is Certified by the [place] [employer]monary [employer] (AACVPR) and Accredited by the [employer] through our [facility]. You can contact us at . We invite you to call us with your questions or to get started in our program. If you have other questions or concerns be sure to ask your physician/provider during your follow-up visit. WE look forward to seeing you!
--- NOTE | 2023-08-20 08:13 | CRPH1.INSTRU ---
General Education Discussed with Patient CAD and cardiac anatomy and function:: Patient communicates acknowledgment Explanation of diagnoses and procedures:: Patient communicates acknowledgment Sign/Symptoms of [place]:: Patient communicates acknowledgment Antiplatelet therapy: Patient communicates acknowledgment Proper use of NTG-SL: Patient communicates acknowledgment Emergency procedures and activation of EMS: Patient communicates acknowledgment Compliance of all prescribed medications: Patient communicates acknowledgment Smoking Risk Factors Patient Nicotine/Smoking Risk Factors Are:: Non-smoker Response Code Nicotine/Smoking Response Code:: Patient communicates acknowledgment Dyslipidemia Risk Factors Patient Dyslipidemia Risk Factors Are:: Total Cholesterol, Triglycerides, HDL and LDL Recommendations Recommendations Include:: Lipid profile not available Response Code Dyslipidemia Response Code:: Patient communicates acknowledgment Overweight/Obesity Risk Factors Patient Overweight/Obesity Risk Factors Are:: Obesity - > or = 30 Recommendations Recommendations Include:: Weight loss of 5-10%, Reduced calorie diet and Exercise 5-7 times/week Response Code Overweight/Obesity:: Patient communicates acknowledgment Hypertension Risk Factors Patient Hypertension Risk Factors Are:: No documented hx of HTN Recommendations Recommendations Include:: Maintain BP <130/85, Decrease/maintain normal body weight and Moderation of ETOH Response Code Hypertension:: Patient communicates acknowledgment Heart Disease Risk Factors Patient Heart Disease Risk Factors Are:: Previous cardiac event Recommendations Recommendations Include:: Educated family members of their risk and Educated family members of importance of prevention of heart disease Response Code Heart Disease Response Code:: Patient communicates acknowledgment Sedentary Risk Factors Patient Sedentary Risk Factors Are:: Lack of regular exercise Recommendations Recommendations Include:: Aerobic exercise 5-7 times/week for 20-30 minutes continuously, Benefits of regular exercise, Discussed home walking program and Monitored Outpatient Cardiac Rehab Response Code Sedentary Response Code:: Patient communicates acknowledgment
[2023-08-20 08:37] LABS: Hematocrit 44.6 % (40-54); Hemoglobin 14.3 g/dL (13.0-16.5); Mean Corp Hgb Conc 32.1 g/dL (32-36); Mean Corpuscular Hgb 29.9 pg (27.0-32.0); Mean Corpuscular Volume 93.3 fL (80-94); Platelet Count 188 K/mm3 (150-450); RBC Distribution Width SD 44.1 fl (35.1-43.9); Red Blood Count 4.78 M/mm3 (4.6-6.2); White Blood Count 10.3 K/mm3 (4.4-11.0)
[2023-08-20] MEDS: Furosemide 40 MG Tablet PO (09:17)
[2023-08-20] MEDS: Potassium Chloride Oral Tablet 20 MEQ PO (09:17)
[2023-08-20] MEDS: Clopidogrel Bisulfate 75 MG Tablet PO (09:17)
[2023-08-20] MEDS: Empagliflozin 10 MG Tablet PO (09:18)
[2023-08-20 09:40] LABS: AST(SGOT) 24 U/L (15-37); Alanine Aminotransfer ALT/SGPT 23 U/L (16-61); Albumin, Serum 3.4 g/dL (3.2-5.0); Alkaline Phosphatase 83 U/L (45-117); Anion Gap 8 (5-15); BUN 20 mg/dL (7-18); BUN/Creat Ratio 18.3 RATIO (10-20); Calcium,Total 9.1 mg/dL (8.5-10.1); Chloride 107 mmol/L (98-107); Creatinine, Serum 1.09 mg/dL (0.70-1.30); EST Glomerular Filtration Rate 74 mL/min (>60); Est Glom Filt Rate - Afr Amer 89 mL/min (>60); Estimated Creatinine Clearance 92.83 ml/min; Globulin 3.3 g/dL (2.2-4.2); Glucose 113 mg/dL (74-106); Potassium 3.5 mmol/L (3.5-5.1); Protein, Total 6.7 g/dL (6.4-8.2); Sodium Level 139 mmol/L (136-145)
--- NOTE | 2023-08-20 09:59 | PHA.DC_ITS ---
Pharmacy [facility] has performed discharge medication reconciliation and counseling for this patient. 1. CLOPIDOGREL 75MG PO DAILY 2. STOP ASPIRIN 81MG The patient's discharge medication list was reviewed for discrepancies and discrepancies were resolved. The patient was counseled on the following discharge medications and changes in medications for homegoing were reviewed. The Reason for Use, instructions for use, and potential side effects were reviewed for all new medications. The patient's questions regarding all of their medications were answered. The patient was able to verbally demonstrate an understanding of their discharge medications. Medications at Discharge Home Medications hydrocodone-acetaminophen 5-325mg 5mg-325mg 0.5 tab PO DAILY PRN Pain 09/08/20 apixaban 5 mg tablet (Eliquis) 5 mg PO BID blood thinner #60 tabs 11/15/22 testosterone 1 % (50 mg/5 gram) transdermal gel packet 1 packet transdermal DAILY hormones 07/30/23 tizanidine 4 mg tablet 4 mg PO QHS PRN muscle spasm 07/30/23 empagliflozin 10 mg tablet (Jardiance) 10 mg PO DAILY 30 days #30 tabs 08/02/23 atorvastatin 40 mg tablet 40 mg PO QHS #30 tabs 08/07/23 benzonatate 100 mg capsule 100 mg PO TID PRN cough 08/07/23 diltiazem HCl 240 mg capsule,extended release 24 hr (Cartia XT) 240 mg PO DAILY #30 caps 08/07/23 furosemide 40 mg tablet 40 mg PO BID water retention #60 tabs 08/07/23 metoprolol tartrate 100 mg tablet 100 mg PO BID #60 tabs 08/07/23 potassium chloride 20 mEq tablet,extended release(part/cryst) 20 meq PO DAILY #60 tabs 08/07/23 cefuroxime axetil 500 mg tablet 500 mg PO BID 08/14/23 doxycycline hyclate 100 mg tablet 100 mg PO BID 08/14/23 clopidogrel 75 mg tablet 75 mg PO DAILY #30 tabs 08/19/23
--- NOTE | 2023-08-20 10:00 | EKG12_ITS ---
Test Reason : POST PCI Blood Pressure : / mmHG Vent. Rate : 101 BPM Atrial Rate : 000 BPM P-R Int : 000 ms QRS Dur : 098 ms QT Int : 356 ms P-R-T Axes : 000 072 270 degrees QTc Int : 461 ms Atrial fibrillation with rapid ventricular response with frequent ventricular-paced complexes RSR' or QR pattern in V1 suggests right ventricular conduction delay ST & T wave abnormality, consider inferior ischemia Abnormal ECG When compared with ECG of 31-JUL-2023 07:37, Vent. rate has increased BY 8 BPM Confirmed by MARIEL ROJAS, MINA ([id number]), writer editor MANUEL RIVERA ([id number]) on 08/20/2023 1:09:00 PM Referred By: Mina Enriquez Confirmed By:MINA ENRIQUEZ MD
--- NOTE | 2023-08-20 11:04 | CASEMGMT ---
Patient has order for discharge. RN CM in to discuss needs at discharge. Patient denies needs at discharge. Patient had no further questions or concerns.
--- NOTE | 2023-08-20 12:16 | PN.CARD_ITS ---
Subjective Subjective Patient seen and evaluated. Appears to be doing fairly well this morning. Objective Data Vital Signs: Vital Signs Temp Pulse Resp BP Pulse Ox O2 Del Method O2 Flow Rate 97.6 F L 101 H 18 116/92 H 96 Room Air 2 08/20/23 08:02 08/20/23 08:02 08/20/23 08:02 08/20/23 08:02 08/20/23 08:02 08/20/23 08:02 08/20/23 03:39 Oxygen Flow Rate (L/min) 2 Oxygen Delivery Method Room Air Weight: 250 lb Body Mass Index (BMI) 36.9 Intake & Output: Intake and Output for Last 24 Hours 08/18/23 08/19/23 08/20/23 23:59 23:59 23:59 Intake Total 1000 / 1000 Balance 1000 / 1000 Lab / Micro Data 08/20/23 07:48 08/20/23 07:48 Labs: Laboratory Results - last 24 hr 08/19/23 14:46: Activated Clotting Time 183 H 08/19/23 14:53: Activated Clotting Time 293 H 08/20/23 07:48: WBC 10.3, RBC 4.78, Hgb 14.3, Hct 44.6, MCV 93.3, MCH 29.9, MCHC 32.1, RDW Std Deviation 44.1 H, RDW Coeff of Ashwini 13.0, Plt Count 188, MPV 11.0, Sodium 139, Potassium 3.5, Chloride 107, Carbon Dioxide 24.0, Anion Gap 8, BUN 20 H, Creatinine 1.09, Estim Creat Clear Calc 92.83, Est GFR (MDRD) Af Amer 89, Est GFR (MDRD) Non-Af 74, BUN/Creatinine Ratio 18.3, Glucose 113 H, Calcium 9.1, Total Bilirubin 1.10 H, AST 24, ALT 23, Alkaline Phosphatase 83, Total Protein 6.7, Albumin 3.4, Globulin 3.3, Albumin/Globulin Ratio 1.0 Cardiology Labs/Tests 08/20/23 07:48: WBC 10.3, RBC 4.78, Hgb 14.3, Hct 44.6, MCV 93.3, MCH 29.9, MCHC 32.1, Plt Count 188, MPV 11.0, Sodium 139, Potassium 3.5, Chloride 107, Carbon Dioxide 24.0, Anion Gap 8, BUN 20 H, Creatinine 1.09, Est GFR (MDRD) Af Amer 89, Est GFR (MDRD) Non-Af 74, BUN/Creatinine Ratio 18.3, Glucose 113 H, Calcium 9.1, Total Bilirubin 1.10 H Rhythm: EKG: ECHO: Stress Test: Cardiac Cath: PCI: CT Surgery: Holter monitor: EPS: PPM: CXR: Chest CT Scan: Physical Exam Const alert, oriented x3 and no apparent distress General Appearance: cooperative HEENT hearing grossly normal bilaterally Head and Scalp: atraumatic Eyes EOMs intact bilaterally Neck General: normal visual inspection Chest inspection of chest normal and palpation of chest normal Resp normal respiratory effort Auscultation: clear to auscultation bilaterally Cardio S1 normal heart sound and S2 normal heart sound Jugular Venous Distention: JVD Rhythm: abnormal rhythm irregularly irregular GI normal to inspection, nondistended, normoactive bowel sounds Extremity normal capillary refill and no pedal edema Peripheral Pulses: Yes pulses 2+ throughout and femoral pulses present Skin no rashes or lesions noted Neuro oriented x3 and CN's II-XII intact bilaterally Psych Appearance: grossly normal and appropriate Assessment & Plan Assessment/Plan (1) CAD (coronary artery disease): PLAN: Patient has known coronary artery disease. He underwent angioplasty and stenting yesterday successfully. My recommendation is for him to continue on the current medical therapy. He will remain on aspirin Plavix and Eliquis for now (2) Atrial fibrillation: PLAN: His ventricular response rate has been difficult to control. The plan to be to continue him on the beta-haresh with metoprolol 100 mg twice a day, add diltiazem 120 mg twice a day, and anticoagulation with Eliquis. Eventually he i s being scheduled to have a possible AV eric ablation. He can be discharged today for outpatient follow-up.
== END 2023-08-20 11:00 | disposition home or self-care (01) ==
LOC: PCU 15:21
PROVIDERS: Internal Medicine Cardiovascular Disease; Nurse Practitioner Gerontology; Admitting Provider Internal Medicine Cardiovascular Disease; PCP Family Medicine; Referring Provider Internal Medicine Cardiovascular Disease; Visit Provider Internal Medicine Cardiovascular Disease
DX: I25.119 Atherosclerotic heart disease of native coronary artery with unspecified angina pectoris (principal); I11.0 Hypertensive heart disease with heart failure; I50.31 Acute diastolic (congestive) heart failure; I48.0 Paroxysmal atrial fibrillation; Z95.1 Presence of aortocoronary bypass graft; E66.9 Obesity, unspecified; Z95.5 Presence of coronary angioplasty implant and graft; E78.5 Hyperlipidemia, unspecified; Z95.0 Presence of cardiac pacemaker; G47.33 Obstructive sleep apnea (adult) (pediatric); Z79.899 Other long term (current) drug therapy; Z79.01 Long term (current) use of anticoagulants; Z79.82 Long term (current) use of aspirin; Z68.37 Body mass index [BMI] 37.0-37.9, adult
CPT/HCPCS: 36415; 71046; 80048; 80053; 83880; 85025; 85027; 85347; 92937; 93005; 93455; 96361; 96374; 96375; 96376; 99152; 99153; 99221; C1894; J7030; J7040; Q9967; A4216; C1769; C1874; C1887; C9604; G0378; J1940

== ENCOUNTER → 2023-09-02 | Outpatient (CLI) | payer OTHER, SELFPAY ==
[2018-10-26 11:39] VITALS: BMI 38.9
[2023-09-02 11:11] LABS: Anion Gap 9 (5-15); BNP,B-Type NATRIURETIC PEPTIDE 284.5 pg/mL (0-100); BUN 22 mg/dL (7-18); BUN/Creat Ratio 14.7 RATIO (10-20); Calcium,Total 9.6 mg/dL (8.5-10.1); Chloride 99 mmol/L (98-107); EST Glomerular Filtration Rate 51 mL/min (>60); Est Glom Filt Rate - Afr Amer 62 mL/min (>60); Glucose 209 mg/dL (74-106); Potassium 3.4 mmol/L (3.5-5.1); Sodium Level 138 mmol/L (136-145)
[2023-09-02 11:19] LABS: Hemoglobin A1c 6.8 % (3.8-5.6)
== END | disposition home or self-care (01) ==
LOC: LAB 09:41
PROVIDERS: PCP Family Medicine; Referring Provider Physician Assistant Medical; Visit Provider Physician Assistant Medical
DX: R06.09 Other forms of dyspnea (principal); I48.91 Unspecified atrial fibrillation; R60.0 Localized edema; Z13.1 Encounter for screening for diabetes mellitus
CPT/HCPCS: 36415; 80048; 83036; 83880

== ENCOUNTER 2023-09-04 10:54 | Emergency (ER) | payer OTHER, SELFPAY ==
[2018-10-26 11:39] VITALS: BMI 38.9
[2023-09-04] VITALS (12 sets, daily range): BP systolic 102–121; BP diastolic 63–92; PULSE 62–137; RESP 14–24; TEMP 36.1–36.7; O2SAT 93–99; BMI 36.8
[2023-09-04] MEDS: Furosemide 40 MG/4 ML Vial IV (11:25)
[2023-09-04 11:27] LABS: Absolute Lymphocyte Count 1.28 X10^3/uL (0.83-4.51); Absolute Neutrophil Count 4.2 X10^3/uL (2.0-7.7); Basophil# 0.06 X10^3/uL; Basophil% 0.9 % (0-1); Eosinophil# 0.18 X10^3/uL; Eosinophils% 2.7 % (0-5); Hemoglobin 13.6 g/dL (13.0-16.5); Lymphocyte # 1.28 X10^3/ul (0.83-4.51); Lymphocyte % 19.4 % (19-41); Mean Corp Hgb Conc 32.4 g/dL (32-36); Mean Corpuscular Hgb 29.4 pg (27.0-32.0); Mean Corpuscular Volume 90.7 fL (80-94); Mean Platelet Vol. 10.3 fl (6.2-12.0); Monocyte% 12.1 % (0-10); NRBC Flagged by Analyzer 0 % (0-5); Neutrophil # 4.24 X10^3/uL (2.7-7.7); Neutrophil % 64.4 % (47-70); Platelet Count 202 K/mm3 (150-450); RBC Distribution Width SD 42.9 fl (35.1-43.9); Red Blood Count 4.63 M/mm3 (4.6-6.2); White Blood Count 6.6 K/mm3 (4.4-11.0)
--- NOTE | 2023-09-04 11:30 | RAD_ITS ---
STUDY: X-RAY CHEST REASON FOR EXAM: Male, 57 years old. sob TECHNIQUE: PA and lateral views of the chest. COMPARISON: August 14, 2023 FINDINGS: 1. Minimal linear atelectasis is present in the left lung base. No consolidation or infiltrates are present 2. Chronic interstitial fibrotic opacities of both lungs 3. Normal heart size. Stable CABG clips 4. Stable left chest cardiac device and leads 5. No pleural effusion 6. Stable mediastinum and osseous structures There is no demonstrated abnormality of the visualized soft tissue structures of the upper abdomen. RAD/Chest PA and Lateral IMPRESSION: Degenerative changes, as described above. No demonstrated acute cardiopulmonary process. Electronically Signed: Trever Santiago MD at 11:49 EDT ,
[2023-09-04 11:39] LABS: Anion Gap 7 (5-15); BUN 29 mg/dL (7-18); BUN/Creat Ratio 20.7 RATIO (10-20); Calcium,Total 9.8 mg/dL (8.5-10.1); Chloride 104 mmol/L (98-107); EST Glomerular Filtration Rate 55 mL/min (>60); Est Glom Filt Rate - Afr Amer 67 mL/min (>60); Estimated Creatinine Clearance 72.15 ml/min; Glucose 156 mg/dL (74-106); Potassium 3.9 mmol/L (3.5-5.1); Sodium Level 138 mmol/L (136-145)
--- NOTE | 2023-09-04 11:47 | EKG12_ITS ---
Test Reason : EDEMA Blood Pressure : / mmHG Vent. Rate : 131 BPM Atrial Rate : 000 BPM P-R Int : 000 ms QRS Dur : 096 ms QT Int : 350 ms P-R-T Axes : 000 064 -86 degrees QTc Int : 516 ms Atrial fibrillation with rapid ventricular response Incomplete right bundle branch block Nonspecific T wave abnormality Abnormal ECG Confirmed by Vinny Fonseca ([id number]), senior technical editor MANUEL RIVERA ([id number]) on 09/05/2023 10:19:35 AM Referred By: Confirmed By:Vinny Fonseca
--- NOTE | 2023-09-04 11:55 | EDS_ITS ---
HPI History of Present Illness Chief Complaint: Edema Informant: patient and spouse/S.O. Narrative Narrative: Worsening 9 pound weight gain lower extremity swelling and swelling to his abdomen over 3 days. History of congestive heart failure. History of coronary disease with bypass in the past. History of A-fib on Eliquis. He states he went back to A-fib 2 months ago, has been persistent. He has been having recurrent leg swelling. He has been hospitalized couple times since then. He states August 18 had a diagnostic cath with intervention to additional stent. He is on Plavix and Eliquis. Reports orthopnea. He states a year ago was cardioverted and helped his symptoms. He is currently being referred to electrophysiology [facility]. Hospitalizations had increased his furosemide up to 40 mg twice daily. He followed up with the office 3 days ago due to low potassium had his furosemide to 40 mg daily and with spironolactone added. He took his medication today. He is still having increasing swelling with dyspnea. Prior similar symptoms: Yes [facility] Medical History Obesity Nonsustained paroxysmal ventricular tachycardia PAF (paroxysmal atrial fibrillation) Tachy-bradley syndrome Sick sinus syndrome History of cardioversion (12/14/21) ALICIA treated with BiPAP Essential hypertension HLD (hyperlipidemia) Atherosclerotic heart disease of [place] coronary artery without angina pectoris Home Medications ?Medication ?Instructions ?Recorded ?Last Taken ?Type hydrocodone-acetaminophen 5-325mg 1 tab PO BID PRN PAIN 09/08/20 12/09/21 History 5mg-325mg apixaban 5 mg tablet (Eliquis) 5 mg PO BID BLOOD THINNER #60 tabs 11/15/2208/13 Rx testosterone 1 % (50 mg/5 gram) 1 packet transdermal DAILY HORMONES 07/30/23 09/04/23 History transdermal gel packet tizanidine 4 mg tablet 4 mg PO QHS PRN MUSCLE SPASMS 07/30/23 09/03/23 History atorvastatin 40 mg tablet 40 mg PO QHS CHOLESTEROL #30 tabs 08/07/23 09/03/23 Rx metoprolol tartrate 100 mg tablet 100 mg PO BID BLOOD PRESSURE #60 08/07/23 09/04/23 Rx tabs clopidogrel 75 mg tablet 75 mg PO DAILY BLOOD THINNER #30 08/19/23 09/04/23 Rx tabs amiodarone 200 mg tablet 200 mg PO BID AFIB #60 tabs 08/29/23 09/04/23 Rx furosemide 40 mg tablet 40 mg PO DAILY EDEMA #60 tabs 09/02/23 09/04/23 Rx spironolactone 25 mg tablet 25 mg PO DAILY BLOOD PRESSURE #90 09/02/23 09/04/23 Rx tabs ondansetron 4 mg disintegrating 4 mg PO Q8H PRN PRN Nausea #10 tabs 09/04/23 Unknown Rx tablet potassium chloride 20 mEq 20 meq PO BID SUPPLEMENT 09/04/23 09/04/23 History tablet,extended release(part/cryst) Allergy/AdvReac Type Severity Reaction Status Date / Time chlorhexidine (From Allergy Itching,erickson Verified 09/04/23 10:55 ChloraPrep Clear) h isopropyl alcohol (From Allergy Itching,erickson Verified 09/04/23 10:55 ChloraPrep Clear) h empagliflozin (From AdvReac Severe Genital Verified 09/04/23 10:55 Jardiance) yeast infection Family History Father CAD (coronary artery disease) Diabetes Cancer Mother Diabetes Brother brain aneurysm rupture Surgical History S/P cardiac pacemaker procedure History of coronary artery stent placement (08/19/23) H/O coronary artery bypass surgery (12/02/08) History of arthroscopy of left shoulder (03/2017) History of left heart catheterization (LHC) (08/19/23) History of tonsillectomy Social History household members: spouse housing: house current occupational status: employed 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 Smoking Status: Never smoker alcohol intake: current alcohol intake frequency: a few times a month substance use type: does not use caffeine: Yes Type: carbonated beverages Number of servings: 5 and coffee Number of servings: 1 what type of physical activity do you participate in: none do you feel safe at home: Yes ROS ROS ED Constitutional Constitutional ED: Denies chills, fever(s) or sweats Eyes Eyes: Denies change in vision ENT ENT ED: Denies dysphagia or sore throat Cardiovascular Cardiovascular: Reports leg edema and orthopnea; Denies chest pain, palpitations or racing heartbeat Respiratory/Chest Respiratory/Chest: Reports dyspnea, dyspnea on exertion, orthopnea and other; Denies cough Gastrointestinal Gastrointestinal: Denies abdominal pain, diarrhea, nausea or vomiting Genitourinary Genitourinary ED: Denies dysuria, hematuria or urinary frequency Musculoskeletal Musculoskeletal: Denies back pain, extremity pain or neck pain Integumentary Denies rash or wounds Neurologic Neurologic: Denies headache(s), paresthesias or weakness EXAM Physical Exam Const Vital Signs: 09/04/23 10:54 09/04/23 10:54 09/04/23 11:23 Temperature 97 F L Temperature Source Temporal Pulse Rate 120 H 114 H Pulse Rate [1] Pulse Rate [2] Respiratory Rate 18 16 Respiratory Rate [1] Respiratory Rate [2] Respiratory Effort Normal Non-Labored Respiratory Pattern Normal Blood Pressure 102/81 H 104/92 H Blood Pressure [1] Blood Pressure Mean 88 96 Pulse Ox 98 98 Oxygen Delivery Method Room Air Room Air Oxygen Delivery Method [1] Oxygen Delivery Method [2] Oxygen Flow Rate (L/min) Oxygen Flow Rate (L/min) [1] 09/04/23 12:00 09/04/23 12:27 09/04/23 12:35 Temperature Temperature Source Pulse Rate 133 H 127 H 137 H Pulse Rate [1] Pulse Rate [2] Respiratory Rate 20 H 22 H 23 H Respiratory Rate [1] Respiratory Rate [2] Respiratory Effort Respiratory Pattern Blood Pressure 112/90 H 115/88 H 117/63 Blood Pressure [1] Blood Pressure Mean 97 97 81 Pulse Ox 96 97 97 Oxygen Delivery Method Room Air Room Air Room Air Oxygen Delivery Method [1] Oxygen Delivery Method [2] Oxygen Flow Rate (L/min) Oxygen Flow Rate (L/min) [1] 09/04/23 12:52 09/04/23 13:12 09/04/23 13:21 Temperature 98 F Temperature Source Pulse Rate 123 H 103 H Pulse Rate [1] 121 H Pulse Rate [2] 88 Respiratory Rate 24 H 18 Respiratory Rate [1] 16 Respiratory Rate [2] 14 Respiratory Effort Respiratory Pattern Blood Pressure 117/63 Blood Pressure [1] 111/79 Blood Pressure Mean 81 Pulse Ox 96 97 Oxygen Delivery Method Room Air Oxygen Delivery Method [1] Nasal Cannula Oxygen Delivery Method [2] Nasal Cannula Oxygen Flow Rate (L/min) Oxygen Flow Rate (L/min) [1] 2 09/04/23 13:26 09/04/23 13:31 09/04/23 13:36 Temperature Temperature Source Pulse Rate Pulse Rate [1] Pulse Rate [2] Respiratory Rate Respiratory Rate [1] Respiratory Rate [2] Respiratory Effort Respiratory Pattern Blood Pressure Blood Pressure [1] Blood Pressure Mean Pulse Ox Oxygen Delivery Method Nasal Cannula Room Air Oxygen Delivery Method [1] Oxygen Delivery Method [2] Oxygen Flow Rate (L/min) 2 0 Oxygen Flow Rate (L/min) [1] 09/04/23 14:00 09/04/23 14:15 Temperature 98.1 F Temperature Source Pulse Rate 63 62 Pulse Rate [1] Pulse Rate [2] Respiratory Rate 17 20 H Respiratory Rate [1] Respiratory Rate [2] Respiratory Effort Respiratory Pattern Blood Pressure 114/79 105/63 Blood Pressure [1] Blood Pressure Mean 90 77 Pulse Ox 97 93 Oxygen Delivery Method Room Air Oxygen Delivery Method [1] Oxygen Delivery Method [2] Oxygen Flow Rate (L/min) Oxygen Flow Rate (L/min) [1] Positive well nourished and well developed Constitutional Narrative: Slight tachypnea speaking in short sentences. General Appearance ED: well developed and NAD HEENT Reports moist mucous membranes normocephalic and atraumatic Eyes EOMs intact bilaterally and conjunctivae normal General Eye ED: Yes normal appearance of both eyes Neck no lymphadenopathy and supple General: Negative for tenderness Chest Wall Chest: Negative for tenderness Resp normal respiratory effort and normal air movement Effort and Inspection: symmetric chest movement; Negative for respiratory distress Cardio no murmurs Rate: tachycardic Rhythm: abnormal rhythm Peripheral Pulses: pulses 2+ throughout GI normal to inspection, nondistended, normoactive bowel sounds and non-tender Palpation: Negative for guarding or rebound tenderness present Back/Spine no CVA tenderness and no thoracic nor lumbar tenderness Extremity normal to inspection Extremity Narrative: 2-3+ lower extremity edema. General Extremety ED: Yes tenderness; Negative for edema General Extremity: Negative for edema Neuro oriented x3 and no sensory deficits noted Sensorium / Orientation: awake and alert Skin no rashes or lesions noted and no wounds MDM MDM MDM Narrative Medical decision making narrative: Interventions / MDM: Differential diagnosis: CHF exacerbation. Atrial fibrillation RVR Diagnosis considered but do not suspect: Pulm embolism however patient is on chronic anticoagulation. My EKG interpretation: Atrial fibrillation RVR rate of 131. No ST changes, T wave inversions inferior leads.. EKG #2 at 1329: Paced rhythm rate of 60 T wave inversions inferior leads. Imaging independently reviewed and interpreted by myself: 2 view chest x-ray: No acute process, no effusion. External documents reviewed: Cardiology outpatient notes along with recent hospitalizations. Noted stent was placed August 18 this year. He was taken off his Cardizem with amiodarone started. Noted changes from cardiology with his diuretics. Test considered but not ordered:N/A ED course: clinical A-fib. With clinical CHF. He is failing outpatient therapy. Will check labs chest x-ray will start IV Lasix 40 mg. EKG A-fib with RVR. Lopressor IV ordered. Labs BNP 277 creatinine 1.4 stable from previous. Hemoglobin 13.6. Chest x-ray with no acute process. He started to urinate with the legs weeks. 1252: After 3 doses of Lopressor heart rate fluctuates 110s to 130s. Discussed with patient with his pending referrals to electrophysiology, he did entertain thought of transfer to [facility] or [facility]. I called the transfer line, no bed availability's. He is ordered for 15 mg IV diltiazem for additional rate control. Will discuss with hospitalist service for admission. 1310: I spoke with hospitalist Dr. Michelle Dickson, she request I speak with land sales agent for plan of care. I spoke with Dr. Fonseca, discussed his history findings, patient is compliant with medications, he recommended cardioversion in the ED and reevaluate his symptoms. This was discussed with patient who agrees. Last meal 7:30 AM this morning. Consent will be obtained with plan for cardioversion. 1327: Cardioversion performed. Repeat EKG rate of 60, T wave version inferior leads. No ST changes. 1410: Maintaining sinus rhythm blood pressure stable he was ambulated he felt much better he had mild dyspnea at the end. Pulse ox 97%. He states he is felt the best in 2 months. He will continue diuresis at home as he is clinically feeling better. Discussed return precautions. He has been on amiodarone since the last admission which hopefully maintains him in a normal rhythm. He will keep his follow-up with EP in 1 week. Re-evaluation: stable Disposition discussed with patient/family/significant other: Patient 6 and other Case discussed with consulting clinician: Hospitalist, cardiology This note was generated with SayNow dictation software. It may contain incorrect words, spelling, and punctuation that were not noted in checking the note before signing. Lab Data Attestation: I reviewed the patient's lab results. Labs: Laboratory Results - last 24 hr 09/04/23 11:15 WBC 6.6 RBC 4.63 Hgb 13.6 Hct 42.0 MCV 90.7 MCH 29.4 MCHC 32.4 RDW Std Deviation 42.9 RDW Coeff of Ashwini 13.0 Plt Count 202 MPV 10.3 Immature Gran % (Auto) 0.500 Neut % (Auto) 64.4 Lymph % (Auto) 19.4 [place] % (Auto) 12.1 H Eos % (Auto) 2.7 Baso % (Auto) 0.9 Absolute Neuts (auto) 4.2 Absolute Lymphs (auto) 1.28 Nucleated RBC % 0 Sodium 138 Potassium 3.9 Chloride 104 Carbon Dioxide 27.0 Anion Gap 7 BUN 29 H Creatinine 1.40 H Estim Creat Clear Calc 72.15 Est GFR (MDRD) Af Amer 67 Est GFR (MDRD) Non-Af 55 L BUN/Creatinine Ratio 20.7 H Glucose 156 H Calcium 9.8 B-Natriuretic Peptide 277.7 H Radiography Diagnostic Testing: Clinical Impression(s) from Imaging Studies Chest X-Ray 09/04/23 11:30 IMPRESSION: Degenerative changes, as described above. No demonstrated acute cardiopulmonary process. Electronically Signed: Trever Santiago MD at 11:49 EDT Reading Location ID and State: [facility] / [place] , Service support , Procedures Procedural Sedation 1 (Initial Baseline): Consent Signed: Yes Any Problems With Anesthesia: No You/Your family experience fever (hyperthermia) w/anesthesia: Unknown Sedation medication: Propofol Dose: 50 Route: IV Maliampati Score: Class II ASA Classification: III Comment:: Timeout performed at 1321. 50 mg propofol pushed at 1322. Sedation achieved, persistent A-fib on the monitor. Direct-current cardioversion synchronized at 150 J, sinus rhythm on the monitor being paced at a rate of 60. Pulse ox, capnography, blood pressure remained stable. Total sedation time 5 minutes. Critical Care Time Critical Care Time: Yes Critical care time (excluding procedures): 30-74 minutes, Discussing w/Patient &/or Family/Printed Circuit Board Layout Designer, Discussing w/Consultants, Performing Direct Patient Care at Bedside and - (30 minutes) Discharge Plan Triage Chief Complaint: Edema ED Provider: Santiago Roblero Dx/Rx/DC Orders Clinical Impression: Atrial fibrillation with RVR, Sick sinus syndrome, CAD (coronary artery disease), Congestive heart failure, Encounter for cardioversion procedure Prescriptions: New ondansetron 4 mg tablet,disintegrating 4 mg PO Q8H PRN PRN (Reason: Nausea) Qty: 10 0RF No Action hydrocodone-acetaminophen 5-325 mg tablet 1 tab PO BID PRN (Reason: PAIN ) testosterone 1 % (50 mg/5 gram) gel in packet 1 packet transdermal DAILY tizanidine 4 mg tablet 4 mg PO QHS PRN (Reason: MUSCLE SPASMS ) clopidogrel 75 mg Tablet 75 mg PO DAILY Qty: 30 11RF potassium chloride 20 mEq tablet,ER particles/crystals 20 meq PO BID Eliquis 5 mg tablet 5 mg PO BID Qty: 60 11RF metoprolol tartrate 100 mg tablet 100 mg PO BID Qty: 60 11RF atorvastatin 40 mg tablet 40 mg PO QHS Qty: 30 11RF amiodarone 200 mg tablet 200 mg PO BID Qty: 60 11RF furosemide 40 mg tablet 40 mg PO DAILY Qty: 60 11RF spironolactone 25 mg tablet 25 mg PO DAILY Qty: 90 3RF Primary Care Provider: Philip Coronado Referrals: Philip Coronado MD [Primary Care Provider] - Rosaura De La O PA [Med Staff - Adv Practice Prof] - 1-2 Weeks Activity Restrictions/Additional Instructions: Discussed with Dr. Fonseca cardiology to the ED. You have been cardioverted back to normal rhythm. Continue your home medications, Lasix in the morning spironolactone in the afternoon. Keep your follow-up with electrophysiology at [facility] in 1 week. If your symptoms recur or worsens, return to the ED for reevaluation. Print Language: Malawian Disposition Disposition: Home, Self Care
[2023-09-04 12:17] LABS: BNP,B-Type NATRIURETIC PEPTIDE 277.7 pg/mL (0-100)
[2023-09-04] MEDS: Metoprolol Tartrate 5 MG/5 ML Vial IV ×3 (12:22→12:36)
[2023-09-04] MEDS: dilTIAZem 25 MG/5 ML Vial 15 MG IV BOLUS (12:55)
[2023-09-04] MEDS: Propofol 200 MG/20 ML Vial IV BOLUS (13:22)
--- NOTE | 2023-09-04 13:26 | EKG12_ITS ---
Test Reason : POST CARDIOVERSION Blood Pressure : / mmHG Vent. Rate : 060 BPM Atrial Rate : 060 BPM P-R Int : 222 ms QRS Dur : 100 ms QT Int : 446 ms P-R-T Axes : 000 054 260 degrees QTc Int : 446 ms Normal sinus rhythm with 1st Degree AV Block-?Atrial Paced Rhythm RSR' or QR pattern in V1 suggests right ventricular conduction delay Nonspecific ST and T wave abnormality Abnormal ECG Confirmed by Vinny Fonseca ([id number]), editorial assistant MANUEL RIVERA ([id number]) on 09/05/2023 10:20:13 AM Referred By: Confirmed By:Vinny Fonseca
[2023-09-04] MEDS: 0.9% Normal Saline (1000mL) 1,000 ML 15 ML IV (13:35)
== END 2023-09-04 14:20 | disposition home or self-care (01) ==
PROVIDERS: Emergency Provider Emergency Medicine; PCP Family Medicine; Visit Provider Emergency Medicine
DX: I48.0 Paroxysmal atrial fibrillation (principal); I50.9 Heart failure, unspecified; I11.0 Hypertensive heart disease with heart failure; I49.5 Sick sinus syndrome; I25.10 Atherosclerotic heart disease of native coronary artery without angina pectoris; E78.5 Hyperlipidemia, unspecified; Z95.1 Presence of aortocoronary bypass graft; Z95.5 Presence of coronary angioplasty implant and graft; Z79.01 Long term (current) use of anticoagulants; Z79.02 Long term (current) use of antithrombotics/antiplatelets; Z79.890 Hormone replacement therapy
CPT/HCPCS: 71046; 80048; 83880; 85025; 93005; 96374; 96375; 99285; J7030; A4216; J1940

== ENCOUNTER 2023-10-22 11:14 | Day surgery (SDC) | payer OTHER, SELFPAY ==
[2018-10-26 11:39] VITALS: BMI 38.9
[2023-10-21 11:03] VITALS: BMI 36.1
[2023-10-21 13:03] LABS: Anion Gap 7 (5-15); BUN 24 mg/dL (7-18); BUN/Creat Ratio 17.1 RATIO (10-20); Calcium,Total 9.5 mg/dL (8.5-10.1); Chloride 101 mmol/L (98-107); EST Glomerular Filtration Rate 55 mL/min (>60); Est Glom Filt Rate - Afr Amer 67 mL/min (>60); Estimated Creatinine Clearance 70.67 ml/min; Glucose 207 mg/dL (74-106); Potassium 3.3 mmol/L (3.5-5.1); Sodium Level 136 mmol/L (136-145)
--- NOTE | 2023-10-21 15:09 | PCM.HP.BLA ---
History and Physical Date of Admission: 10/21/23 BHARAT HOLLY, is a 57 M with a history of premature coronary artery disease status post bypass surgery in 2008 with a left internal mammary artery to the diagonal branch, saphenous vein graft to the posterior descending artery, and saphenous vein graft to posterior circumflex artery. He also has a history of hyperlipidemia. He had complained of some chest pain and shortness of breath and underwent cardiac catheterization in November 2008 which demonstrated normal left main coronary artery, left anterior descending artery which is totally occluded, circumflex artery with a proximal 90% stenosis, and right coronary artery with no significant disease. The left internal mammary artery to the left anterior descending artery was patent and a sequential saphenous vein graft to circumflex artery and posterior descending artery had a 75% stenosis as well as a distal 80% stenotic lesion. He underwent PCI with drug-eluting stent to the second obtuse marginal branch as well as the saphenous vein graft to the second obtuse marginal branch successfully in 10/2018. He was admitted to [facility] in November 2021 for congestive heart failure and atrial fibrillation. He underwent transesophageal echocardiogram on 12/14/2021 that showed ejection function of 55%, moderately enlarged left atrium, mildly enlarged right atrium, and no thrombus at the left atrial appendage. He proceeded with cardioversion. He converted to normal sinus rhythm and junctional rhythm. His medications were adjusted and discharged for outpatient follow-up. He states using BiPAP for ALICIA. Pt did have a 24 HM for lightheadedness and a low HR, HM demonstrated a 7.3 sec post cardioversion pause. His metoprolol was stopped, he felt much better after stopping the metoprolol. His Multaq was discontinued. We did repeat a 24 HM a few weeks later to reassess after stopping his metoprolol. Patient was not noted to be in atrial flutter 100% of the time. Average heart rate was 111 bpm, minimum heart rate 52 bpm, maximum heart rate 16 9 bpm with a 2.2-second pause. Initially he was brought in today to obtain an EKG did discuss a cardioversion however EKG today demonstrates marked sinus bradycardia with a heart rate of 41 bpm. Patient ultimately underwent a pacemaker placement for sick sinus syndrome and tachybradycardia syndrome in April 2022. In July 2023 patient was admitted with increased weight gain, dyspnea increased lower extremity edema. He was noted to be in atrial fibrillation with RVR. Digoxin was added to help lower his heart rate. Patient was scheduled for a left heart cath to evaluate his pulmonary pressures. We were not going to do a right heart cath due to his pacemaker. Patient did undergo a diagnostic heart catheterization done in August 2023. Heart catheterization demonstrated Atrial fibrillation. Coronary disease with patent SHEIKH to the diagonal vessel, occluded left anterior descending artery, moderately severely diseased circumflex artery, patent saphenous vein graft to the obtuse marginal branch and posterior descending artery previously stented with patent stent in proximal stenotic lesion. He did undergo stenting to his SVG to the OM. Patient continues to have shortness of breath lower extremity edema. His diltiazem was discontinued and amiodarone 200 mg twice a day was added. He did see Dr. Cramer at [facility] for evaluation of an AV eric ablation. Unfortunately this cannot be scheduled for several months. He did not feel that he was tolerating his amiodarone and he did discontinue this. Patient has called our office with concerns over increased shortness of breath and lower extremity edema. His pacemaker device does not demonstrate this. Would like to proceed with a cardioversion to see if this helps with his symptoms. Allergies chlorhexidine (From ChloraPrep Clear) Allergy (Verified 09/02/23 09:02) Itching,rash isopropyl alcohol (From ChloraPrep Clear) Allergy (Verified 09/02/23 09:02) Itching,rash empagliflozin (From Jardiance) Adverse Reaction (Severe, Verified 09/02/23 09:02) Genital yeast infection [facility] Medical History Obesity Nonsustained paroxysmal ventricular tachycardia PAF (paroxysmal atrial fibrillation) Tachy-bradley syndrome Sick sinus syndrome History of cardioversion (12/14/21) ALICIA treated with BiPAP Essential hypertension HLD (hyperlipidemia) Atherosclerotic heart disease of [place] coronary artery without angina pectoris Surgical History S/P cardiac pacemaker procedure History of coronary artery stent placement (08/19/23) H/O coronary artery bypass surgery (12/02/08) History of arthroscopy of left shoulder (03/2017) History of left heart catheterization (LHC) (08/19/23) History of tonsillectomy Family History Father CAD (coronary artery disease) Diabetes Cancer Mother Diabetes Brother brain aneurysm rupture Social History household members: spouse housing: house current occupational status: employed 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 Smoking Status: Never smoker alcohol intake: current alcohol intake frequency: a few times a month substance use type: does not use caffeine: Yes Type: carbonated beverages Number of servings: 5 and coffee Number of servings: 1 what type of physical activity do you participate in: none do you feel safe at home: Yes ROS Const Const: Positive for fatigue, weakness and weight gain; Negative for fever(s) or headache(s) Eyes Eyes: Negative for loss of peripheral vision, blurry vision or change in vision ENT ENT: Negative for headache(s), dizziness, Nosebleed/epistaxis or balance problems Cardio Chest Pain: No Palpitations: Yes Edema: Bilateral Muscle aches with walking: Bilateral Resp Respiratory: Positive for SOB with activity; Negative for SOB at rest or SOB orthopnea\SOB lying down GI GI: Negative nausea, vomiting, heartburn or black,tarry stools : Negative for hematuria Musc Musc: Positive for muscle aches/ myalgia and muscle weakness; Negative for balance problems Neuro Neuro: Positive for weakness; Negative for dizziness, headache(s) or blurry vision Endo Endo: Positive for fatigue Cardiology Exam Const Appearance: cooperative, healthy appearing, comfortable, no acute distress and well developed Nutritional Appearance: average body habitus and obese Orientation: alert, awake and oriented x3 Head Head: normal to inspection Ears: hearing grossly normal bilaterally Nose: external nose normal Face and Sinus: face symmetric Eyes General: appearance normal, both eyes and all related structures Eyelids: eyelids normal Conjunctivae: conjunctivae normal Pupils: PERRL EOM: EOM intact bilaterally Neck Neck: normal visual inspection and trachea midline; Negative no JVD Carotids: Negative bruit Chest Chest inspection: normal inspection of the chest Auscultation: Bilateral: Clear to Auscultation Cardio Palpation: normal PMI Rhythm: irregularly irregular Heart sounds: S1 normal and S2 normal; Negative rub, gallop or murmur GI GI: normal to inspection, soft and obese Neuro General: patient alert, patient awake, patient oriented x3 and CN's II-XI intact bilaterally Extremities Pulses: Normal: Right Posterior Tibial Pulse, Left Posterior Tibial Pulse, Right Radial Pulse and Left Radial Pulse Lower Extremity Edema: +2: Bilateral (tight) Psych Psychological: normal affect Supplemental Information Echocardiogram 06/30/2023: Interpretation Summary Normal LV size. Left ventricular systolic function is lower limits of normal. Mild concentric left ventricular hypertrophy. The left ventricular ejection fraction is 50 %. The left atrium is mildly enlarged. Contrast injection was performed. Stress test from 04/19/2021: Conclusion: Normal exercise myocardial perfusion stress test at a moderate workload. Preserved ejection fraction. Ventricular ectopy noted. Cardiac cath 08/19/2023: Atrial fibrillation. Coronary disease with patent SHEIKH to the diagonal vessel, occluded left anterior descending artery, moderately severely diseased circumflex artery, patent saphenous vein graft to the obtuse marginal branch and posterior descending artery previously stented with patent stent in proximal stenotic lesion RECOMMENDATIONS Referred for immediate PCI CORONARY ANGIOGRAPHY DOMINANCE: Left Dominant LEFT HEART ASSESSMENT Left Ventricular Ejection Fraction: by Echo 45 % Depressed Left Ventricular systolic function LEFT MAIN: Angiographically normal LEFT ANTERIOR DESCENDING ARTERY: This vessel appears to be totally occluded in the proximal to mid segment. CIRCUMFLEX ARTERY: This is a large dominant vessel. Gives off a first proximal AV groove branch with 90% stenosis. The circumflex artery continues with an obtuse marginal branch which is diffusely diseased bifurcating into 2 branches with a superior branch having a diffuse 70% stenotic lesion. RIGHT CORONARY ARTERY: Previously noted to be nondominant. GRAFTS: SHEIKH graft to the 1st Diagonal This vessel is patent patent close the distal anastomotic site is a 40 to 50% stenotic lesion. The diagonal vessel then retrogradely fills part of the LAD. There is a high-grade stenosis noted just prior to the anastomotic point. Sequential graft to the Sequential saphenous vein graft to the obtuse marginal branch and posterior descending artery is noted in this vessel was previously stented with a stent to be patent. More proximal 70 to 80% stenotic lesion is noted. PCI:Successful KAREN Mid SVG to OM using Milligan Bibb 3.0x15 mm Assessment & Plan Assessment/Plan (1) Atrial fibrillation with rapid ventricular response: (2) CAD (coronary artery disease): (3) Atherosclerotic heart disease of [place] coronary artery without angina pectoris: QUALIFIERS: [place] vs. transplanted heart: [place] heart Qualified Code(s): I25.10 - Atherosclerotic heart disease of [place] coronary artery without angina pectoris (4) Essential hypertension: PLAN: Plan Patient will proceed with a cardioversion. Will follow-up with patient accordingly after.
[2023-10-22 11:54] LABS: Anion Gap 7 (5-15); BUN 24 mg/dL (7-18); BUN/Creat Ratio 15.7 RATIO (10-20); Calcium,Total 9.9 mg/dL (8.5-10.1); Chloride 102 mmol/L (98-107); Creatinine, Serum 1.53 mg/dL (0.70-1.30); EST Glomerular Filtration Rate 50 mL/min (>60); Est Glom Filt Rate - Afr Amer 60 mL/min (>60); Estimated Creatinine Clearance 64.67 ml/min; Glucose 154 mg/dL (74-106); Potassium 3.6 mmol/L (3.5-5.1); Sodium Level 139 mmol/L (136-145)
--- NOTE | 2023-10-22 12:53 | PRO.PCM_ITS ---
Procedure Report Date of Procedure: 10/22/23 DC cardioversion. 58-year-old man with chronic persistent atrial fibrillation, status post pa cemaker placement who presents for DC cardioversion procedure. Patient has been symptomatic and has been compliant with his anticoagulation. Patient was seen by Dr. Avalos of the critical care division. Informed consent was obtained. Anterior-posterior pads were applied. The patient was administered 70 mg of intravenous propofol. 300 J of synchronized DC cardioversion energy were applied and the patient was noted to go into an AV sequential rhythm with frequent premature ventricular complexes and atrial complexes noted. Conclusion: Successful DC cardioversion from atrial fibrillation to AV paced rhythm. Recommend discontinuation of diltiazem due to significant pedal edema Resume amiodarone 200 mg twice a day Continue Lasix at the current dose Continue spironolactone Follow-up as per office protocol and to recheck pacemaker I did discuss with him that I do not have much control over the EP physicians schedules. However we will try as much as possible to expedite an appointment for him. He apparently has a scheduled appointment later on in the year.
--- NOTE | 2023-10-22 12:55 | PRO.PCM_ITS ---
Procedure Report Date of Procedure: 10/22/23 CONSCIOUS SEDATION REPORT DATE OF SERVICE: October 22, 2023 BRIEF HISTORY OF PRESENT ILLNESS: The patient is a 58-year-old male who presented to [facility] for an elective outpatient cardioversion due to underlying atrial fibrillation. The patient is systemically anticoagulated on Eliquis, without any recent missed doses. His last surface echocardiogram demonstrated an ejection fraction of approximately 50%. The patient denied any prior anesthetic complications. He does have a known history of sleep apnea and currently utilizes nocturnal PAP therapy. PHYSICAL EXAMINATION: VITAL SIGNS: Reviewed and were acceptable. GENERAL: The patient is an obese male, in no apparent distress, speaking in full sentences. HEENT: Normocephalic, atraumatic. Mucous membranes are moist and pink. Good mouth opening noted. Trachea is midline. Good neck mobility. CHEST: S1, S2 irregularly irregular. No murmurs, rubs or gallops were noted. LUNGS: Clear to auscultation bilaterally without appreciable wheezes, rales or rhonchi. ABDOMEN: Soft, nontender, nondistended. Positive bowel sounds. EXTREMITIES: There is no clubbing or cyanosis. Lower extremity edema is present. ASA Class: II DESCRIPTION OF PROCEDURE: After confirmation of informed consent, the patient's anesthesia plan was reviewed in detail. Propofol was chosen. Risks and benefits were reviewed and the patient agreed to proceed. At 1228, the patient was given his first bolus of propofol. In total, the patient required 70 mg of propofol to achieve an appropriate level of sedation, after which time, the patient was given a 300 joule synchronized cardioversion by Dr. Enriquez at the bedside. This was successful in achieving normal sinus rhythm. The patient was monitored until 1241, at which time he reached his baseline mental status and function. The patient tolerated the procedure well. COMPLICATIONS: None ESTIMATED BLOOD LOSS: None RECOMMENDATIONS: Okay to recover in usual fashion. Procedures Pulmonary Pulmonary Procedures /Diagnostic Testin Con Sedation
== END 2023-10-22 13:45 | disposition home or self-care (01) ==
PROVIDERS: Physician Assistant Medical; PCP Family Medicine; Referring Provider Internal Medicine Cardiovascular Disease; Visit Provider Internal Medicine Cardiovascular Disease
DX: I48.0 Paroxysmal atrial fibrillation (principal); I25.10 Atherosclerotic heart disease of native coronary artery without angina pectoris; Z95.1 Presence of aortocoronary bypass graft; E78.5 Hyperlipidemia, unspecified; Z95.2 Presence of prosthetic heart valve; Z79.01 Long term (current) use of anticoagulants; E66.9 Obesity, unspecified
CPT/HCPCS: 36415; 80048; 92960; 93005; J7040; J1940

== ENCOUNTER 2023-10-30 11:05 | Emergency (ER) | payer SELFPAY ==
[2018-10-26 11:39] VITALS: BMI 38.9
[2023-10-30 11:05] VITALS: BP 108/67; PULSE 58; RESP 14; TEMP 35.7; O2SAT 99; BMI 37.1
--- NOTE | 2023-10-30 11:25 | CT_ITS ---
STUDY: CT CERVICAL SPINE WITHOUT CONTRAST REASON FOR EXAM: Male, 58 years old. Injury RADIATION DOSAGE (If Supplied By Facility): CTDIvol = ( 30.75 ) mGy, DLP = ( 685.50 ) mGycm TECHNIQUE: High resolution transaxial imaging was performed without contrast material. Sagittal and coronal images were reconstructed. Individualized dose optimization techniques were used for this CT. COMPARISON: None FINDINGS: Normal craniovertebral junction. Normal anterior atlantoaxial articulation. Normal odontoid process. There is straightening of the normal cervical lordosis. Multilevel flowing posterior osteophytes causing central canal stenosis at multiple levels. C2-3: Normal endplates. Normal disc height and morphology. Normal central canal and intervertebral neuroforamina. C3-4: Status post laminectomy and fusion at the C3-C4 level. This space narrowing. C4-5: Moderate degree of disc space narrowing. Bilateral neural foraminal stenosis. C5-6: Marked degree of disc space narrowing and spondylosis. Uncovertebral arthrosis. Moderate degree of bilateral neural foraminal stenosis. C6-7: Normal endplates. Normal disc height and morphology. Normal central canal and intervertebral neuroforamina. C7-T1: Normal endplates. Normal disc height and morphology. Normal central canal and intervertebral neuroforamina. Normal visualized soft tissue structures. CT/Spine Cervical without Contras IMPRESSION: Multilevel degenerative changes, as described above. Multilevel posterior spondylosis and flowing osteophytes causing mild degree of central canal stenosis worse at the C5-C6 level and neural foraminal stenosis. Electronically Signed: Brandon Cabrera MD at 11:58 EDT ,
--- NOTE | 2023-10-30 11:25 | CT_ITS ---
INDICATION: right rib trauma EXAMINATION: CT CHEST WITHOUT CONTRAST - CT Chest W/O Contrast Injection TECHNIQUE: Helically acquired images were obtained of the chest. A radiation dose optimization technique was used for this scan. IV Contrast dosage and agent: None. COMPARISON: Chest x-ray 09/04/2023 FINDINGS: Status post median sternotomy. Left subclavian pacemaker. LUNGS, PLEURA AND LARGE AIRWAYS: No masses, consolidation, or edema. No pleural effusion or thickening. No pneumothorax. THYROID: No thyroid lesions. HEART AND PERICARDIUM: Cardiomegaly. No pericardial effusion. CORONARY ARTERIES: Coronary artery calcification is seen. VESSELS: Thoracic aorta is not dilated. MEDIASTINUM AND NAHOMI: No mediastinal or hilar adenopathy. Esophagus is unremarkable. No hiatal hernia. UPPER ABDOMEN: No acute pathology. BONES: Flowing syndesmophytes throughout the thoracic lumbar spine suggestive of ankylosing spondylitis. Mild loss of height and wedging deformity of the T11 vertebral body consistent with a chronic mild wedge compression fracture which produces focal kyphosis but no retropulsion into the spinal canal. CT/Chest without Contrast IMPRESSION: 1. No pneumothorax or hemothorax. 2. Cardiomegaly. 3. Suspect ankylosing spondylitis. 4. Chronic mild wedge compression fracture of T11 with focal kyphosis but no retropulsion into the spinal canal. Electronically Signed: Raheem Gonzalez MD at 13:26 EDT ,
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
--- NOTE | 2023-10-30 11:29 | CT_ITS ---
STUDY: CT BRAIN WITHOUT CONTRAST REASON FOR EXAM: Male, 58 years old. Trauma RADIATION DOSAGE (If Supplied By Facility): CTDIvol = ( 44.99 ) mGy, DLP = ( 796.11 ) mGycm TECHNIQUE: Transaxial CT imaging of the brain was performed without administration of intravenous contrast material. Individualized dose optimization techniques were used for this CT. COMPARISON: No relevant priors. FINDINGS: Normal soft tissue structures. Normal calvarium. Normal size ventricles and extra-axial spaces for the patient''s age. Normal white matter tracts of the cerebral hemispheres. Normal basal ganglia and thalami. Normal brainstem. Normal cerebellum. There is no intracranial hemorrhage. There are no findings of an acute ischemic infarction. Atherosclerotic plaque formation of the cavernous portions of the internal carotid arteries bilaterally. Normal visualized paranasal sinuses. CT/Brain/Head without Contrast IMPRESSION: Normal unenhanced CT scan of the brain. Electronically Signed: Brandon Cabrera MD at 11:56 EDT ,
[2023-10-30 13:05] VITALS: BP 149/54; PULSE 63; RESP 18; O2SAT 100
--- NOTE | 2023-10-30 13:14 | EKG12_ITS ---
Test Reason : ACCIDENT Blood Pressure : / mmHG Vent. Rate : 060 BPM Atrial Rate : 060 BPM P-R Int : 212 ms QRS Dur : 104 ms QT Int : 460 ms P-R-T Axes : 000 060 252 degrees QTc Int : 460 ms Atrial-paced rhythm with prolonged AV conduction Incomplete right bundle branch block T wave abnormality, consider inferior ischemia Abnormal ECG Confirmed by MARIEL ROJAS, JEREMY ([id number]), editor newspaper FRANCISCA COATS ([id number]) on 11/03/2023 11:04:06 AM Referred By: Confirmed By:JEREMY FLOYD MD
[2023-10-30 13:43] VITALS: BP 110/65; PULSE 64; RESP 14; TEMP 36.6; O2SAT 99
== END 2023-10-30 13:45 | disposition home or self-care (01) ==
PROVIDERS: Emergency Provider Emergency Medicine; PCP Family Medicine; Visit Provider Emergency Medicine
DX: S61.511A Laceration without foreign body of right wrist, initial encounter (principal); I48.0 Paroxysmal atrial fibrillation; I49.5 Sick sinus syndrome; S16.1XXA Strain of muscle, fascia and tendon at neck level, initial encounter; S20.212A Contusion of left front wall of thorax, initial encounter; V49.40XA Driver injured in collision with unspecified motor vehicles in traffic accident, initial encounter; Y93.89 Activity, other specified; E78.5 Hyperlipidemia, unspecified; I25.10 Atherosclerotic heart disease of native coronary artery without angina pectoris; I10 Essential (primary) hypertension; E66.9 Obesity, unspecified; Z68.37 Body mass index [BMI] 37.0-37.9, adult; Z95.0 Presence of cardiac pacemaker; Z95.1 Presence of aortocoronary bypass graft; Z95.5 Presence of coronary angioplasty implant and graft; Z79.01 Long term (current) use of anticoagulants; Z79.02 Long term (current) use of antithrombotics/antiplatelets; Z79.899 Other long term (current) drug therapy
CPT/HCPCS: 12002; 70450; 71250; 72125; 93005; 99282

== ENCOUNTER → 2023-11-20 | Outpatient (CLI) | payer OTHER, SELFPAY ==
[2018-10-26 11:39] VITALS: BMI 38.9
[2023-11-20 13:32] LABS: Anion Gap 5 (5-15); BUN 17 mg/dL (7-18); BUN/Creat Ratio 13.9 RATIO (10-20); Calcium,Total 9.4 mg/dL (8.5-10.1); Chloride 102 mmol/L (98-107); Creatinine, Serum 1.22 mg/dL (0.70-1.30); EST Glomerular Filtration Rate 65 mL/min (>60); Est Glom Filt Rate - Afr Amer 78 mL/min (>60); Glucose 131 mg/dL (74-106); Potassium 3.9 mmol/L (3.5-5.1); Sodium Level 137 mmol/L (136-145)
== END | disposition home or self-care (01) ==
PROVIDERS: PCP Family Medicine; Referring Provider Internal Medicine Cardiovascular Disease; Visit Provider Internal Medicine Cardiovascular Disease
DX: N28.9 Disorder of kidney and ureter, unspecified (principal)
CPT/HCPCS: 36415; 80048

== ENCOUNTER → 2024-01-07 | Outpatient (CLI) | payer OTHER, SELFPAY ==
[2018-10-26 11:39] VITALS: BMI 38.9
[2024-01-07 11:31] LABS: Anion Gap 4 (5-15); BUN 15 mg/dL (7-18); BUN/Creat Ratio 12.7 RATIO (10-20); Calcium,Total 10.2 mg/dL (8.5-10.1); Chloride 102 mmol/L (98-107); Creatinine, Serum 1.18 mg/dL (0.70-1.30); EST Glomerular Filtration Rate 67 mL/min (>60); Est Glom Filt Rate - Afr Amer 82 mL/min (>60); Glucose 180 mg/dL (74-106); Potassium 4.3 mmol/L (3.5-5.1); Sodium Level 137 mmol/L (136-145)
== END | disposition home or self-care (01) ==
LOC: LAB 10:25
PROVIDERS: PCP Family Medicine; Referring Provider Nurse Practitioner Family; Visit Provider Nurse Practitioner Family
DX: Z51.81 Encounter for therapeutic drug level monitoring (principal); N28.9 Disorder of kidney and ureter, unspecified; Z79.899 Other long term (current) drug therapy
CPT/HCPCS: 36415; 80048

== ENCOUNTER 2024-01-26 08:44 | Emergency (ER) | payer OTHER, SELFPAY ==
[2018-10-26 11:39] VITALS: BMI 38.9
[2024-01-26] VITALS (8 sets, daily range): BP systolic 107–139; BP diastolic 72–118; PULSE 105–136; RESP 16–20; TEMP 36.6–37.1; O2SAT 97–99; BMI 35.5
--- NOTE | 2024-01-26 08:47 | ED.VIS.CHEST ---
HPI History of Present Illness Chief Complaint: Palpitations [facility] Medical History Obesity Nonsustained paroxysmal ventricular tachycardia PAF (paroxysmal atrial fibrillation) Tachy-bradley syndrome Sick sinus syndrome History of cardioversion (12/14/21) ALICIA treated with BiPAP Essential hypertension HLD (hyperlipidemia) Atherosclerotic heart disease of [place] coronary artery without angina pectoris Home Medications ?Medication ?Instructions ?Recorded ?Last Taken ?Type hydrocodone-acetaminophen 5-325mg 1 tab PO BID PRN PAIN 09/08/20 01/24/24 History 5mg-325mg testosterone 1 % (50 mg/5 gram) 1 packet transdermal DAILY HORMONES 07/30/23 01/25/24 History transdermal gel packet tizanidine 4 mg tablet 4 mg PO QHS PRN MUSCLE SPASMS 07/30/23 01/25/24 History atorvastatin 40 mg tablet 40 mg PO QHS CHOLESTEROL #30 tabs 08/07/23 01/25/24 Rx apixaban 5 mg tablet (Eliquis) 5 mg PO BID BLOOD THINNER #60 tabs 12/05/23 01/26/24 Rx metoprolol succinate 50 mg 50 mg PO BID #60 tabs 01/01/24 01/26/24 Rx tablet,extended release 24 hr potassium chloride 20 mEq 20 meq PO BID SUPPLEMENT #270 tabs 01/02/24 01/26/24 Rx tablet,extended release(part/cryst) lisinopril 5 mg tablet 5 mg PO QDAY #90 tabs 01/05/24 01/26/24 Rx furosemide 40 mg tablet 80 mg (2 x 40 mg) PO BID EDEMA 01/12/24 01/25/24 Rx #180 tabs Allergy/AdvReac Type Severity Reaction Status Date / Time chlorhexidine (From Allergy Itching,erickson Verified 01/26/24 08:45 ChloraPrep Clear) h isopropyl alcohol (From Allergy Itching,erickson Verified 01/26/24 08:45 ChloraPrep Clear) h empagliflozin (From AdvReac Severe Genital Verified 01/26/24 08:45 Jardiance) yeast infection Family History Father CAD (coronary artery disease) Diabetes Cancer Mother Diabetes Brother brain aneurysm rupture Surgical History S/P ablation of atrial fibrillation S/P cardiac pacemaker procedure History of coronary artery stent placement (08/19/23) H/O coronary artery bypass surgery (12/02/08) History of arthroscopy of left shoulder (03/2017) History of left heart catheterization (LHC) (08/19/23) History of tonsillectomy Social History household members: spouse housing: house current occupational status: employed 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 Smoking Status: Never smoker alcohol intake: current alcohol intake frequency: a few times a month substance use type: does not use caffeine: Yes Type: carbonated beverages Number of servings: 5 and coffee Number of servings: 1 what type of physical activity do you participate in: none do you feel safe at home: Yes EXAM Physical Exam Const Vital Signs: 01/26/24 08:45 01/26/24 09:28 01/26/24 09:29 Temperature 97.9 F Temperature Source Oral Pulse Rate 136 H Respiratory Rate 18 Respiratory Effort Normal Non-Labored Respiratory Pattern Normal Blood Pressure 136/118 H Blood Pressure Mean 124 Pulse Ox 99 Oxygen Delivery Method Room Air Room Air 01/26/24 09:44 01/26/24 10:00 01/26/24 11:00 Temperature Temperature Source Pulse Rate 125 H 120 H 115 H Respiratory Rate 16 16 16 Respiratory Effort Respiratory Pattern Blood Pressure 115/84 H 115/84 H 118/80 Blood Pressure Mean 94 94 92 Pulse Ox 99 99 99 Oxygen Delivery Method Room Air Room Air MDM MDM MDM Narrative Medical decision making narrative: HISTORY OF PRESENT ILLNESS: 58-year-old male presents with palpitations. Notes 3 to 4 days of heart racing. Notes exertional chest pain intermittently over this time period. Denies shortness of breath. Denies bleeding diathesis. Notes compliance with home medications including Eliquis. Last dose of Eliquis was this morning. The patient denies recent surgery in the last 4 weeks or immobilization in the last 3 days, denies previous diagnosis of DVT or PE, hemoptysis, unilateral leg swelling or malignancy with treatment the last 6 months or palliative. No estrogen use noted. Denies diarrhea or vomiting. REVIEW OF SYSTEMS: Pertinent positives: Palpitations, chest pain Pertinent negatives: As per HPI PHYSICAL EXAM: Nursing triage notes reviewed, Vital signs reviewed Constitutional: please see mdm HENT: MMM Eyes: Pupils equal round and reactive to light, Extraocular muscles intact Neck: No stridor, no JVD, full neck ROM Lungs: Clear to auscultation, No wheezing or rales. No increased work of breathing, no conversational dyspnea, no accessory muscle use, no nasal flaring. No respiratory distress noted Heart: Regular rate and rhythm, No murmurs, No rubs and No gallops, 2+ distal pulses (radial, femoral, posterior tibial) in all extremities Abdomen: Soft, there is no tenderness, rigidity, rebound or guarding, no obvious peritoneal signs, no palpable pulsatile abdominal masses, no auscultated abdominal bruit : No CVAT Extremities: No edema Neuro: No focal neurological deficits, cranial nerves II through XII intact, 5/5 strength in all extremities. Intact sensation to light touch in all extremities, 2+ reflexes bilateral patella tendons. Normal gait. No ataxia. Skin: No rash or lesions noted MEDICAL DECISION MAKING: Chief Complaint: Palpitations External records reviewed: Reviewed prior medications, problem list, Factors affecting care: Tachybradycardia syndrome, sick sinus syndrome, CHF, CAD status post bypass, status post pacemaker Social determinants of health: none History obtained from others: none Consults: Internal medicine, cardiology [facility] Narrative: Patient was initially tachycardic, hypertensive. I considered the following differential diagnosis: Arrhythmia, anemia, electrolyte abnormality, ACS, PE ALL IMAGES (IF OBTAINED) HAVE BEEN PERSONALLY REVIEWED AND INTERPRETED BY MYSELF. EKG shows sinus tachycardia rate of 128, normal intervals, no obvious STEMI, noted T wave inversions inferiorly, which is new from prior Initial troponin elevated consistent with myocardial ischemia CBC with no leukocytosis, no anemia, no thrombocytopenia D-dimer negative making VTE less likely BMP without evidence of significant electrolyte abnormalities, no anion gap, no acute kidney injury. Magnesium within normal limits After discussion with hospitalist, cardiology and recommendations to transfer the patient for EP evaluation 2/2 to complex history. Spoke with transfer center 11:42 AM. They alerted me that patient will be on a significant wait list given they are full. Talk to Dr. Ruano at approximately 11:55 AM. Informed him of the significant wait time and that it will likely take greater than 6 hours of the patient transferred. He stated since it would take greater than 6 hours he is okay to go to the floor and accepted admission to the PCU under full admission. The patient and/or family, caregivers express understanding. The patient and/or family, caregivers agrees with the plan. Shared decision making: I will have a discussion with the patient and or visitors regarding risk/benefits of further testing or admission. They will be made aware of of the risk/benefits inherent in this decision they will be given the opportunity to voice understanding. Total critical care time today provided was at least 0 minutes. This excludes separately billable procedures. Critical care time (if documented) is secondary to the patient having high probability of clinically significant/life threatening deterioration in the patient's condition which required my urgent intervention. Impression: 1. Palpitation 2. A-flutter 3. NSTEMI Dispo: Transfer to [facility] This note was generated with [employer] software. It may contain incorrect words, spelling, and punctuation that were not noted in review of the chart prior to signing. Lab Data Labs: Laboratory Results - last 24 hr 01/26/24 08:55 WBC 5.4 RBC 5.13 Hgb 14.7 Hct 46.7 MCV 91.0 MCH 28.7 MCHC 31.5 L RDW Std Deviation 50.0 H RDW Coeff of Ashwini 14.8 H Plt Count 153 MPV 10.8 Immature Gran % (Auto) 0.200 Neut % (Auto) 63.0 Lymph % (Auto) 21.5 Dickson % (Auto) 12.2 H Eos % (Auto) 2.0 Baso % (Auto) 1.1 H Absolute Neuts (auto) 3.4 Absolute Lymphs (auto) 1.16 Nucleated RBC % 0 D-Dimer Quant (PE/DVT) 0.30 Sodium 137 Potassium 4.2 Chloride 104 Carbon Dioxide 26.0 Anion Gap 7 BUN 19 H Creatinine 1.25 Estim Creat Clear Calc 77.07 Est GFR (MDRD) Af Amer 76 Est GFR (MDRD) Non-Af 63 BUN/Creatinine Ratio 15.2 Glucose 227 H Calcium 9.7 Magnesium 1.9 Troponin I High Sens 557 H* Radiography Diagnostic Testing: Clinical Impression(s) from Imaging Studies Chest X-Ray 01/26/24 09:10 IMPRESSION: No acute pulmonary process Electronically Signed: Parrish Lubin MD at 9:23 EDT , Discharge Plan Triage Chief Complaint: Palpitations ED Provider: Fernando Mack Dx/Rx/DC Orders Prescriptions: No Action hydrocodone-acetaminophen 5-325 mg tablet 1 tab PO BID PRN (Reason: PAIN ) testosterone 1 % (50 mg/5 gram) gel in packet 1 packet transdermal DAILY tizanidine 4 mg tablet 4 mg PO QHS PRN (Reason: MUSCLE SPASMS ) atorvastatin 40 mg tablet 40 mg PO QHS Qty: 30 11RF Eliquis 5 mg tablet 5 mg PO BID Qty: 60 11RF metoprolol succinate 50 mg tablet extended release 24 hr 50 mg PO BID Qty: 60 11RF potassium chloride 20 mEq tablet,ER particles/crystals 20 meq PO BID Qty: 270 3RF lisinopril 5 mg tablet 5 mg PO QDAY Qty: 90 3RF furosemide 40 mg tablet 80 mg PO BID Qty: 180 3RF Primary Care Provider: Philip Coronado Referrals: Philip Coronado MD [Primary Care Provider] - Print Language: Albanian
--- NOTE | 2024-01-26 09:04 | EKG12_ITS ---
Test Reason : Blood Pressure : / mmHG Vent. Rate : 128 BPM Atrial Rate : 128 BPM P-R Int : 160 ms QRS Dur : 098 ms QT Int : 322 ms P-R-T Axes : 000 060 -80 degrees QTc Int : 470 ms Sinus tachycardia RSR' or QR pattern in V1 suggests right ventricular conduction delay ST & T wave abnormality, consider inferior ischemia Abnormal ECG Confirmed by Vinny Fonseca ([id number]), deputy editor in chief FRANCISCA COATS ([id number]) on 01/27/2024 8:28:18 AM Referred By: JORGE Confirmed By:Vinny Fonseca
--- NOTE | 2024-01-26 09:10 | RAD_ITS ---
STUDY: X-RAY CHEST REASON FOR EXAM: Male, 58 years old. Atypical chest pain TECHNIQUE: Single AP portable view of the chest. COMPARISON: 09/04/2023 FINDINGS: EKG leads overlie the chest. Stable left subclavian pacemaker The lungs are clear and expanded. There is no demonstrated pleural abnormality. Normal size heart. Normal mediastinum and rosy. Normal visualized pulmonary arteries. Normal visualized aortic arch and descending thoracic aorta. Normal visualized thoracic spine. Normal visualized ribs, clavicles, and shoulders. There is no demonstrated abnormality of the visualized soft tissue structures of the upper abdomen. RAD/Chest 1 View (Portable) IMPRESSION: No acute pulmonary process Electronically Signed: Parrish Lubin MD at 9:23 EDT ,
[2024-01-26 09:27] LABS: Absolute Lymphocyte Count 1.16 X10^3/uL (0.83-4.51); Absolute Neutrophil Count 3.4 X10^3/uL (2.0-7.7); Basophil# 0.06 X10^3/uL; Basophil% 1.1 % (0-1); Eosinophil# 0.11 X10^3/uL; Hematocrit 46.7 % (40-54); Hemoglobin 14.7 g/dL (13.0-16.5); Lymphocyte # 1.16 X10^3/ul (0.83-4.51); Lymphocyte % 21.5 % (19-41); Mean Corp Hgb Conc 31.5 g/dL (32-36); Mean Corpuscular Hgb 28.7 pg (27.0-32.0); Mean Platelet Vol. 10.8 fl (6.2-12.0); Monocyte# 0.66 X10^3/uL; Monocyte% 12.2 % (0-10); NRBC Flagged by Analyzer 0 % (0-5); Neutrophil # 3.39 X10^3/uL (2.7-7.7); Platelet Count 153 K/mm3 (150-450); RBC Distribution Width CV 14.8 % (11.6-14.6); Red Blood Count 5.13 M/mm3 (4.6-6.2); White Blood Count 5.4 K/mm3 (4.4-11.0)
[2024-01-26 09:52] LABS: Anion Gap 7 (5-15); BUN 19 mg/dL (7-18); BUN/Creat Ratio 15.2 RATIO (10-20); Calcium,Total 9.7 mg/dL (8.5-10.1); Chloride 104 mmol/L (98-107); Creatinine, Serum 1.25 mg/dL (0.70-1.30); EST Glomerular Filtration Rate 63 mL/min (>60); Est Glom Filt Rate - Afr Amer 76 mL/min (>60); Estimated Creatinine Clearance 77.07 ml/min; Glucose 227 mg/dL (74-106); Magnesium 1.9 mg/dL (1.6-2.6); Potassium 4.2 mmol/L (3.5-5.1); Sodium Level 137 mmol/L (136-145); Troponin-I HS (w/2H Reflex) 557 pg/mL (3.0-78.0)
[2024-01-26 11:20] LABS: Reflex Troponin-HS? (from REC) Y
--- NOTE | 2024-01-26 11:25 | NURSING ---
DR DA SILVA FOR DR BLANCHARD
[2024-01-26] MEDS: Aspirin 325 MG Tablet PO (12:11)
[2024-01-26 12:18] LABS: Troponin-I HS 566 pg/mL (3.0-78.0)
== END 2024-01-26 15:10 | disposition short-term general hospital (02) ==
PROVIDERS: Emergency Provider Emergency Medicine; PCP Family Medicine; Visit Provider Emergency Medicine
DX: R00.2 Palpitations (principal); I48.92 Unspecified atrial flutter; I48.0 Paroxysmal atrial fibrillation; I25.10 Atherosclerotic heart disease of native coronary artery without angina pectoris; E78.5 Hyperlipidemia, unspecified; G47.33 Obstructive sleep apnea (adult) (pediatric); Z95.0 Presence of cardiac pacemaker; Z79.01 Long term (current) use of anticoagulants; Z79.899 Other long term (current) drug therapy
CPT/HCPCS: 71045; 80048; 83735; 84484; 85025; 85379; 93005; 99285; A4216

== ENCOUNTER → 2024-02-16 | Outpatient (CLI) | payer OTHER, SELFPAY ==
[2018-10-26 11:39] VITALS: BMI 38.9
== END | disposition home or self-care (01) ==
LOC: PSN 07:01
PROVIDERS: PCP Family Medicine; Referring Provider Internal Medicine Cardiovascular Disease; Visit Provider Internal Medicine Cardiovascular Disease
DX: I48.19 Other persistent atrial fibrillation (principal); R06.00 Dyspnea, unspecified
CPT/HCPCS: 93225; 93226

== ENCOUNTER → 2024-03-02 | Outpatient (CLI) | payer OTHER, SELFPAY ==
[2018-10-26 11:39] VITALS: BMI 38.9
--- NOTE | 2024-03-02 11:00 | ECHOCS_ITS ---
Version 2 Reason For Study: Afib Procedure This was a 2D Doppler, Color Flow transthoracic echocardiogram. Contrast injection was performed. Exam performed in department. Left Ventricle Normal LV size. Left ventricular systolic function is normal. The left ventricular ejection fraction is 60 %. No regional wall motion abnormalities noted. Right Ventricle Normal RV size. ICD or pacer leads identified within the right ventricle. Normal systolic function. Atria The left atrium is mildly enlarged. Normal right atrium. Mitral Valve Normal mitral valve. Tricuspid Valve Normal tricuspid valve. Mild (1+) tricuspid valve insufficiency. Pulmonary artery systolic pressure is 34 mmHg. Aortic Valve Trisinus/trileaflet aortic valve. Mild focal aortic valve thickening. Pulmonic Valve The pulmonic valve is not well visualized. Great Vessels Normal aortic root. The pulmonary artery is normal size. Inferior vena cava collapse with respiration. Pericardium/Pleural No pericardial effusion. Medication Diluted definity 1.5ml given slow IV push to enhance endocardial definition. MMode/2D Measurements & Calculations LVIDd: 5.1 cm IVSd: 1.1 cm asc Aorta Diam: 3.1 cm LVIDs: 3.5 cm LVPWd: 1.1 cm RVDd: 4.6 cm FS: 30.5 % LAV(MOD-bp): 72.6 ml LVAd ap4: 34.5 cm2 SV(MOD-sp4): 78.4 ml LAV(MOD-bp) Indexed: 32.5 ml/m2 LVLd ap4: 7.6 cm SI(MOD-sp4): 35.1 ml/m2 LAV(MOD-sp2): 66.2 ml EDV(MOD-sp4): 128.1 ml LAV(MOD-sp4): 77.2 ml EDV(sp4-el): 133.7 ml LVAs ap4: 19.3 cm2 LVLs ap4: 6.1 cm ESV(MOD-sp4): 49.7 ml ESV(sp4-el): 52.0 ml EF(MOD-sp4): 61.2 % EF(sp4-el): 61.1 % SV(sp4-el): 81.7 ml LA A4 area: 23.3 cm2 LA dimension(2D): 5.0 cm RA A4 area: 16.4 cm2 TAPSE: 1.7 cm Time Measurements MV dec time: 0.25 sec Doppler Measurements & Calculations MV E max greg: 110.0 cm/sec Lat Peak E' Greg: 8.3 cm/sec Med Peak E' Greg: 3.5 cm/sec MV A max greg: 42.3 cm/sec E/E' lat: 13.2 E/E' med: 31.7 MV E/A: 2.6 MV V2 max: 139.0 cm/sec MV dec slope: 433.4 cm/sec2 Ao V2 max: 136.3 cm/sec MV max P.7 mmHg Ao max P.4 mmHg MV V2 mean: 69.7 cm/sec Ao V2 mean: 102.3 cm/sec MV mean P.4 mmHg Ao mean P.4 mmHg MV V2 VTI: 44.3 cm Ao V2 VTI: 30.0 cm LV V1 max: 108.0 cm/sec PA V2 max: 79.0 cm/sec TR max greg: 276.0 cm/sec LV V1 max P.7 mmHg TR max P.5 mmHg ECHO/Echo Complete W/ Contrast Interpretation Summary Normal LV size. Left ventricular systolic function is normal. The left ventricular ejection fraction is 60 %. Mild focal aortic valve thickening. Pulmonary artery systolic pressure is 34 mmHg. ICD or pacer leads identified within the right ventricle. Contrast injection was performed. Ordering Physician: Chi Cramer Referring Physician: Philip Coronado Performed By: Anjali Coon RDCS, RVT
== END | disposition home or self-care (01) ==
LOC: CVS 10:58
PROVIDERS: PCP Family Medicine; Referring Provider Internal Medicine Cardiovascular Disease; Visit Provider Internal Medicine Cardiovascular Disease
DX: I48.19 Other persistent atrial fibrillation (principal); R06.00 Dyspnea, unspecified
CPT/HCPCS: 93306; Q9957; A4216; C8929

== ENCOUNTER 2024-03-30 09:23 | Emergency (ER) | payer OTHER, SELFPAY ==
[2018-10-26 11:39] VITALS: BMI 38.9
[2024-03-30] VITALS (14 sets, daily range): BP systolic 92–140; BP diastolic 60–99; PULSE 60–144; RESP 14–27; TEMP 36.6; O2SAT 97–100; BMI 37.4
--- NOTE | 2024-03-30 09:35 | EKG12_ITS ---
Test Reason : SOB Blood Pressure : */* mmHG Vent. Rate : 128 BPM Atrial Rate : 128 BPM P-R Int : 174 ms QRS Dur : 94 ms QT Int : 314 ms P-R-T Axes : * 62 -89 degrees QTcB Int : 458 ms Atrial flutter with [address] & T wave abnormality, consider inferior ischemia Abnormal ECG Confirmed by MARIEL ROJAS, JEREMY ([id number]), business editor MANUEL RIVERA ([id number]) on 04/01/2024 10:45:49 AM Referred By: ADAN Confirmed By: JEREMY FLOYD MD
--- NOTE | 2024-03-30 09:42 | ED.VIS.DYS ---
HPI History of Present Illness Chief Complaint: Shortness of Breath Informant: patient Onset/Context/Timing Onset: Days Context: sudden Timing: Continuous Quality: Positive for Dyspnea on exertion Current Severity: Moderate Maximum Severity: Moderate Worsened by: Exertion Relieved by: Rest Associated Symptoms Negative for cough Chest Pain: Positive for None Narrative Narrative: 58-year-old male past medical history of A-fib on Eliquis, CAD, stent, pacemaker, prior CABG. States that he used cough medicine on Friday he believes it had Sudafed in it and believes he went into A-fib. He is accelerated heart rate and shortness of breath. Denies any chest pain. Denies any fever. Currently that his cough is resolved and he never had a productive cough. Patient did not eat today. Add he has been consistently taking his Eliquis. PE Risk Factors: Negative for Cancer, OCP + Smoking + > 35, Prior DVT or PE, Recent immobilization, Recent surgery or Recent travel Prior similar symptoms: Yes Recent Illness/Hospitalization: Yes [facility] Medical History Obesity Nonsustained paroxysmal ventricular tachycardia PAF (paroxysmal atrial fibrillation) Tachy-bradley syndrome Sick sinus syndrome History of cardioversion (12/14/21) ALICIA treated with BiPAP Essential hypertension HLD (hyperlipidemia) Atherosclerotic heart disease of [place] coronary artery without angina pectoris Home Medications ?Medication ?Instructions ?Recorded ?Last Taken ?Type hydrocodone-acetaminophen 5-325mg 1 tab PO BID PRN PAIN 09/08/20 01/24/24 History 5mg-325mg testosterone 1 % (50 mg/5 gram) 1 packet transdermal DAILY HORMONES 07/30/23 01/25/24 History transdermal gel packet tizanidine 4 mg tablet 4 mg PO QHS PRN MUSCLE SPASMS 07/30/23 01/25/24 History atorvastatin 40 mg tablet 40 mg PO QHS CHOLESTEROL #30 tabs 08/07/23 01/25/24 Rx apixaban 5 mg tablet (Eliquis) 5 mg PO BID BLOOD THINNER #60 tabs 12/05/23 01/26/24 Rx metoprolol succinate 50 mg 50 mg PO BID #60 tabs 01/01/24 01/26/24 Rx tablet,extended release 24 hr potassium chloride 20 mEq 20 meq PO BID SUPPLEMENT #270 tabs 01/02/24 01/26/24 Rx tablet,extended release(part/cryst) lisinopril 5 mg tablet 5 mg PO QDAY #90 tabs 01/05/24 01/26/24 Rx furosemide 40 mg tablet 80 mg (2 x 40 mg) PO BID EDEMA 03/18/24 Unknown Rx #180 tabs Allergy/AdvReac Type Severity Reaction Status Date / Time chlorhexidine (From Allergy Itching,erickson Verified 03/30/24 09:28 ChloraPrep Clear) h isopropyl alcohol (From Allergy Itching,erickson Verified 03/30/24 09:28 ChloraPrep Clear) h empagliflozin (From AdvReac Severe Genital Verified 03/30/24 09:28 Jardiance) yeast infection Family History Father CAD (coronary artery disease) Diabetes Cancer Mother Diabetes Brother brain aneurysm rupture Surgical History S/P ablation of atrial fibrillation S/P cardiac pacemaker procedure History of coronary artery stent placement (08/19/23) H/O coronary artery bypass surgery (12/02/08) History of arthroscopy of left shoulder (03/2017) History of left heart catheterization (LHC) (08/19/23) History of tonsillectomy Social History household members: spouse housing: house current occupational status: employed 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 Palpitations. Constitutional Constitutional ED: Denies chills or fever(s) Eyes Eyes: Denies blurry vision ENT ENT ED: Denies ear pain Cardiovascular Cardiovascular: Reports palpitations and racing heartbeat; Denies chest pain Respiratory/Chest Respiratory/Chest: Denies cough or dyspnea Gastrointestinal Gastrointestinal: Denies abdominal pain Genitourinary Genitourinary ED: Denies dysuria or hematuria Musculoskeletal Musculoskeletal: Denies arthralgias Integumentary Denies abscess Neurologic Neurologic: Denies headache(s) Psychiatric Psychiatric: Denies anxiety Endocrine Endocrinology: Denies cold intolerance Hematologic/Lymphatic Hematologic/Lymphatic: Denies lymphadenopathy Allergic/Immunologic Allergic/Immunologic ED: Denies mouth swelling, tongue swelling or urticaria EXAM Physical Exam Narrative Exam Narrative: 58-year-old male sitting upright in bed. Vital signs are stable other than he is in A-fib RVR rate about 130. No distress. at bedside. H EENT exam unremarked. Neck nontender no JVD. Lungs clear to auscultation bilaterally. Heart A-fib RVR rate about 130. Irregular irregular. Chest wall ribs nontender. Abdomen soft nontender. Chronic trace edema both lower extremities. 1+. Moving all 4 extremities. Normal strength. Normal range of motion. Patient is awake alert. No focal motor deficits. Answering questions and following commands. Const Vital Signs: 03/30/24 09:25 03/30/24 09:28 03/30/24 10:15 Temperature 97.9 F Temperature Source Oral Pulse Rate 129 H Pulse Rate [1 (Initial Baseline)] Pulse Rate [2] Pulse Rate [3] Pulse Rate [4] Respiratory Rate 24 H Respiratory Rate [1 (Initial Baseline)] Respiratory Rate [2] Respiratory Rate [3] Respiratory Rate [4] Respiratory Effort Normal Non-Labored Respiratory Depth Normal Respiratory Pattern Normal Blood Pressure 126/81 H Blood Pressure [1 (Initial Baseline)] Blood Pressure [3] Blood Pressure [4] Blood Pressure Mean 96 Pulse Ox 98 Oxygen Delivery Method Room Air Room Air Room Air Oxygen Delivery Method [1 (Initial Baseline)] Oxygen Delivery Method [3] Oxygen Delivery Method [4] Oxygen Flow Rate (L/min) Oxygen Flow Rate (L/min) [1 (Initial Baseline)] Oxygen Flow Rate (L/min) [3] Oxygen Flow Rate (L/min) [4] EtCo2 (Normal 35-45 , high quality CPR 10-20 & ROSC>/=40mmHg EtCo2 (Normal 35-45 , high quality CPR 10-20 & ROSC>/=40mmHg [1 (Initial Baseline)] EtCo2 (Normal 35-45 , high quality CPR 10-20 & ROSC>/=40mmHg [3] EtCo2 (Normal 35-45 , high quality CPR 10-20 & ROSC>/=40mmHg [4] 03/30/24 10:40 03/30/24 10:47 03/30/24 10:49 Temperature Temperature Source Pulse Rate Pulse Rate [1 (Initial Baseline)] Pulse Rate [2] Pulse Rate [3] Pulse Rate [4] Respiratory Rate Respiratory Rate [1 (Initial Baseline)] Respiratory Rate [2] Respiratory Rate [3] Respiratory Rate [4] Respiratory Effort Respiratory Depth Respiratory Pattern Blood Pressure Blood Pressure [1 (Initial Baseline)] Blood Pressure [3] Blood Pressure [4] Blood Pressure Mean Pulse Ox Oxygen Delivery Method Nasal Cannula Oxygen Delivery Method [1 (Initial Baseline)] Oxygen Delivery Method [3] Oxygen Delivery Method [4] Oxygen Flow Rate (L/min) 5 Oxygen Flow Rate (L/min) [1 (Initial Baseline)] Oxygen Flow Rate (L/min) [3] Oxygen Flow Rate (L/min) [4] EtCo2 (Normal 35-45 , high quality CPR 10-20 & ROSC>/=40mmHg 33 36 39 EtCo2 (Normal 35-45 , high quality CPR 10-20 & ROSC>/=40mmHg [1 (Initial Baseline)] EtCo2 (Normal 35-45 , high quality CPR 10-20 & ROSC>/=40mmHg [3] EtCo2 (Normal 35-45 , high quality CPR 10-20 & ROSC>/=40mmHg [4] 03/30/24 10:50 03/30/24 10:54 03/30/24 11:05 Temperature Temperature Source Pulse Rate 144 H Pulse Rate [1 (Initial Baseline)] 144 H Pulse Rate [2] Pulse Rate [3] Pulse Rate [4] Respiratory Rate 23 H Respiratory Rate [1 (Initial Baseline)] 27 H Respiratory Rate [2] Respiratory Rate [3] Respiratory Rate [4] Respiratory Effort Respiratory Depth Respiratory Pattern Blood Pressure Blood Pressure [1 (Initial Baseline)] 122/93 H Blood Pressure [3] Blood Pressure [4] Blood Pressure Mean Pulse Ox 100 Oxygen Delivery Method Nasal Cannula Nasal Cannula Oxygen Delivery Method [1 (Initial Baseline)] Nasal Cannula Oxygen Delivery Method [3] Oxygen Delivery Method [4] Oxygen Flow Rate (L/min) 5 Oxygen Flow Rate (L/min) [1 (Initial Baseline)] 5 Oxygen Flow Rate (L/min) [3] Oxygen Flow Rate (L/min) [4] EtCo2 (Normal 35-45 , high quality CPR 10-20 & ROSC>/=40mmHg 33 39 EtCo2 (Normal 35-45 , high quality CPR 10-20 & ROSC>/=40mmHg [1 (Initial Baseline)] 28 EtCo2 (Normal 35-45 , high quality CPR 10-20 & ROSC>/=40mmHg [3] EtCo2 (Normal 35-45 , high quality CPR 10-20 & ROSC>/=40mmHg [4] 03/30/24 11:15 03/30/24 11:24 03/30/24 13:06 Temperature Temperature Source Pulse Rate 138 H 141 H Pulse Rate [1 (Initial Baseline)] Pulse Rate [2] Pulse Rate [3] Pulse Rate [4] Respiratory Rate 18 18 Respiratory Rate [1 (Initial Baseline)] Respiratory Rate [2] Respiratory Rate [3] Respiratory Rate [4] Respiratory Effort Respiratory Depth Respiratory Pattern Blood Pressure 105/88 H 117/87 H Blood Pressure [1 (Initial Baseline)] Blood Pressure [3] Blood Pressure [4] Blood Pressure Mean 93 97 Pulse Ox 100 98 Oxygen Delivery Method Nasal Cannula Nasal Cannula Oxygen Delivery Method [1 (Initial Baseline)] Oxygen Delivery Method [3] Oxygen Delivery Method [4] Oxygen Flow Rate (L/min) 5 5 Oxygen Flow Rate (L/min) [1 (Initial Baseline)] Oxygen Flow Rate (L/min) [3] Oxygen Flow Rate (L/min) [4] EtCo2 (Normal 35-45 , high quality CPR 10-20 & ROSC>/=40mmHg 35 EtCo2 (Normal 35-45 , high quality CPR 10-20 & ROSC>/=40mmHg [1 (Initial Baseline)] EtCo2 (Normal 35-45 , high quality CPR 10-20 & ROSC>/=40mmHg [3] EtCo2 (Normal 35-45 , high quality CPR 10-20 & ROSC>/=40mmHg [4] 03/30/24 13:27 03/30/24 13:31 03/30/24 13:44 Temperature Temperature Source Pulse Rate 141 H Pulse Rate [1 (Initial Baseline)] 132 H Pulse Rate [2] 133 H Pulse Rate [3] 137 H Pulse Rate [4] 60 Respiratory Rate 19 H Respiratory Rate [1 (Initial Baseline)] 20 H Respiratory Rate [2] 14 Respiratory Rate [3] 20 H Respiratory Rate [4] 24 H Respiratory Effort Respiratory Depth Respiratory Pattern Blood Pressure 140/91 H Blood Pressure [1 (Initial Baseline)] 124/99 H Blood Pressure [3] 93/65 Blood Pressure [4] 101/73 Blood Pressure Mean Pulse Ox 97 Oxygen Delivery Method Room Air Nasal Cannula Oxygen Delivery Method [1 (Initial Baseline)] Nasal Cannula Oxygen Delivery Method [3] Nasal Cannula Oxygen Delivery Method [4] Nasal Cannula Oxygen Flow Rate (L/min) 5 Oxygen Flow Rate (L/min) [1 (Initial Baseline)] 1 Oxygen Flow Rate (L/min) [3] 5 Oxygen Flow Rate (L/min) [4] 5 EtCo2 (Normal 35-45 , high quality CPR 10-20 & ROSC>/=40mmHg 36 33 EtCo2 (Normal 35-45 , high quality CPR 10-20 & ROSC>/=40mmHg [1 (Initial Baseline)] 33 EtCo2 (Normal 35-45 , high quality CPR 10-20 & ROSC>/=40mmHg [3] 36 EtCo2 (Normal 35-45 , high quality CPR 10-20 & ROSC>/=40mmHg [4] 36 03/30/24 13:49 03/30/24 13:54 Temperature Temperature Source Pulse Rate Pulse Rate [1 (Initial Baseline)] Pulse Rate [2] Pulse Rate [3] Pulse Rate [4] Respiratory Rate Respiratory Rate [1 (Initial Baseline)] Respiratory Rate [2] Respiratory Rate [3] Respiratory Rate [4] Respiratory Effort Respiratory Depth Respiratory Pattern Blood Pressure Blood Pressure [1 (Initial Baseline)] Blood Pressure [3] Blood Pressure [4] Blood Pressure Mean Pulse Ox Oxygen Delivery Method Room Air Oxygen Delivery Method [1 (Initial Baseline)] Oxygen Delivery Method [3] Oxygen Delivery Method [4] Oxygen Flow Rate (L/min) Oxygen Flow Rate (L/min) [1 (Initial Baseline)] Oxygen Flow Rate (L/min) [3] Oxygen Flow Rate (L/min) [4] EtCo2 (Normal 35-45 , high quality CPR 10-20 & ROSC>/=40mmHg 27 27 EtCo2 (Normal 35-45 , high quality CPR 10-20 & ROSC>/=40mmHg [1 (Initial Baseline)] EtCo2 (Normal 35-45 , high quality CPR 10-20 & ROSC>/=40mmHg [3] EtCo2 (Normal 35-45 , high quality CPR 10-20 & ROSC>/=40mmHg [4] Positive well nourished and well developed; Negative for cachectic, contractures or unkempt General Appearance ED: well developed; Negative for unkempt, cachectic, contractures or pallor Nutritional Appearance: Negative for cachectic HEENT Reports moist mucous membranes atraumatic; Negative for trauma or tenderness Eyes PERRL and EOMs intact bilaterally Neck no lymphadenopathy, supple, no meningeal signs and no JVD Resp normal respiratory effort and clear to auscultation bilaterally Cardio no murmurs; Negative for regular rate or regular rhythm Cardio Narrative: A-fib RVR rate about 130. Rate: tachycardic GI non-tender, non-distended and no masses Palpation: soft; Negative for tender, guarding or rebound tenderness present Back/Spine no CVA tenderness and normal to inspection Extremity normal to inspection General Extremety ED: Negative for edema or tenderness General Extremity: Negative for edema Neuro oriented x3 and CN's II-XII intact bilaterally Sensorium / Orientation: alert, oriented to person, oriented to place and oriented to time Motor Exam: strength 5/5 throughout Psych mental status grossly normal Appearance: Negative for unkempt Thought Process: normal thought process Skin no wounds and skin turgor normal General Skin Exam: Negative for jaundice or pallor Lesions: no lesions Rashes: no rashes Trauma: Negative for abrasion or laceration MDM MDM MDM Narrative Medical decision making narrative: 58-year-old male history of cardiac disease with recurrent A-fib status post ablation in October. Has been taking his Eliquis as prescribed. Back in A-fib RVR since Friday. He explained to me that medications usually do not work for him. His mainspring strip inspector in [facility] Explained him that he should just get cardioverted when this occurs again. He will be treated with propofol and cardioverted. Patient did not eat breakfast this morning. The initial cardioversion was unsuccessful. I spoke to cardiology Dr. Enriquez Patient was given 150 mg IV of amiodarone. We waited an hour. He was then consciously sedated a second time with a total of 110 of propofol. He was cardioverted a second time with 360 J. And he immediately converted to a sinus rhythm in the 60s. He came out of the conscious sedation is doing well. Repeat exam at 2:37 PM patient is awake alert. Feeling much better. Currently is in a sinus rhythm in the 60s. He and his are comfortable with him being discharged home with outpatient follow-up with his mainspring strip inspector. History & Record Review Discussion w/independent historian: Patient and Family Additional record(s) reviewed:: Prior inpatient record, Prior outpatient record, Prior ED visit, Prior labs and No prior records Lab Data Attestation: I reviewed the patient's lab results. Lab results narrative: CBC unremarkable. White count of 7. H&H 16 and 48. Platelets 232. Electrolytes show a gap of 5. BUN of 21 creatinine 1.57. Glucose 219. His troponins elevated at 187 it was higher previously in the 500s. BNP 150. Labs: Laboratory Results - last 24 hr 03/30/24 09:30 WBC 7.9 RBC 5.32 Hgb 16.0 Hct 48.0 MCV 90.2 MCH 30.1 MCHC 33.3 RDW Std Deviation 51.3 H RDW Coeff of Ashwini 15.7 H Plt Count 232 MPV 10.9 Immature Gran % (Auto) 0.800 Neut % (Auto) 62.7 Lymph % (Auto) 19.4 [place] % (Auto) 13.7 H Eos % (Auto) 2.3 Baso % (Auto) 1.1 H Absolute Neuts (auto) 5.0 Absolute Lymphs (auto) 1.53 Nucleated RBC % 0 Sodium 136 Potassium 4.4 Chloride 103 Carbon Dioxide 28.0 Anion Gap 5 BUN 21 H Creatinine 1.57 H Estim Creat Clear Calc 64.14 Est GFR (MDRD) Af Amer 59 L Est GFR (MDRD) Non-Af 48 L BUN/Creatinine Ratio 13.4 Glucose 219 H Calcium 10.0 Troponin I High Sens 187 H* B-Natriuretic Peptide 150.1 H Radiography Chest X-Ray - ED: 1 View, Read by ED Physician, Read by Radiologist, Heart, Lungs, Mediastinum, Bony Structures, No Acute Disease and Chronic Changes Diagnostic Testing: Clinical Impression(s) from Imaging Studies Chest X-Ray 03/30/24 10:15 IMPRESSION: Status post CABG. No acute abnormality is seen. Electronically Signed: Brandon Cabrera MD at 10:28 EST , Chest x-ray, portable, single view interpreted by myself and radiologist. Shows no acute abnormality. Normal cardiac silhouette. Prior sternal wires. Left-sided pacemaker. Lungs unremarkable. No acute process. Rhythm Strip Rhythm Strip: A-fib Rate: 128 Ectopy: None EKG Initial EKG: Attestation: I personally reviewed and interpreted this EKG as follows: Interpretation: Atrial Fibrillation Comments: A-fib RVR rate 128. Follow-up EKG: Attestation: I personally reviewed and interpreted this EKG as follows: Interpretation: Atrial Fibrillation Comments: Repeat EKG the second EKG shows A-fib rate of 144. No acute signs of VT. Procedures Procedural Sedation 1 (Initial Baseline): Consent Signed: Yes Any Problems With Anesthesia: No You/Your family experience fever (hyperthermia) w/anesthesia: No Sedation medication: Propofol Dose: 60 Route: IV Total Moderate Sedation Units: 10 Maliampati Score: Class III ASA Classification: II Comment:: Initial procedural sedation. Patient was given 60 of propofol IV. Once good appropriate sedation was obtained he was cardioverted using 360. There was no change in his heart rate or rhythm. His rate remained 1 30-1 40 in A-fib. Second attempt with procedural sedation. Patient was given initially amiodarone. An hour later he was procedurally sedated with propofol 110 mg. In aliquots. Once proper sedation was obtained he was cardioverted with 360 J and immediately went into a sinus rhythm. Critical Care Time Critical Care Time: Yes Critical care time (excluding procedures): 30-74 minutes, Including time spent:, Discussing w/Patient &/or Family/Medical Billing Coordinator, Discussing w/Consultants, Arranging Admission or Transfer, Performing Direct Patient Care at Bedside and - (45 minutes) Discharge Plan Triage Chief Complaint: Shortness of Breath ED Provider: Bonifacio Olivia Dx/Rx/DC Orders Clinical Impression: Atrial fibrillation with rapid ventricular response, History of cardioversion, Chronic anticoagulation Instructions: AFib Prescriptions: No Action hydrocodone-acetaminophen 5-325 mg tablet 1 tab PO BID PRN (Reason: PAIN ) testosterone 1 % (50 mg/5 gram) gel in packet 1 packet transdermal DAILY tizanidine 4 mg tablet 4 mg PO QHS PRN (Reason: MUSCLE SPASMS ) atorvastatin 40 mg tablet 40 mg PO QHS Qty: 30 11RF Eliquis 5 mg tablet 5 mg PO BID Qty: 60 11RF metoprolol succinate 50 mg tablet extended release 24 hr 50 mg PO BID Qty: 60 11RF potassium chloride 20 mEq tablet,ER particles/crystals 20 meq PO BID Qty: 270 3RF lisinopril 5 mg tablet 5 mg PO QDAY Qty: 90 3RF furosemide 40 mg tablet 80 mg PO BID Qty: 180 3RF Primary Care Provider: Philip Coronado Referrals: Mina Enriquez MD [Med Staff - Active Staff] - As soon as possible Philip Coronado MD [Primary Care Provider] - Activity Restrictions/Additional Instructions: Do not drink alcohol or drive today. You are given conscious sedation medications. Just go home and take it easy. Do not get on a ladder. Do not use any heavy equipment. Continue your current cardiac medications. Call and follow-up with your mainspring strip inspector. Return to emergency department if you are feeling worse or go back into A-fib with an accelerated rate. Print Language: Turkish Disposition Disposition: Home, Self Care
[2024-03-30 09:56] LABS: Absolute Lymphocyte Count 1.53 X10^3/uL (0.83-4.51); Basophil# 0.09 X10^3/uL; Basophil% 1.1 % (0-1); Eosinophil# 0.18 X10^3/uL; Eosinophils% 2.3 % (0-5); Lymphocyte # 1.53 X10^3/ul (0.83-4.51); Lymphocyte % 19.4 % (19-41); Mean Corp Hgb Conc 33.3 g/dL (32-36); Mean Corpuscular Hgb 30.1 pg (27.0-32.0); Mean Corpuscular Volume 90.2 fL (80-94); Mean Platelet Vol. 10.9 fl (6.2-12.0); Monocyte# 1.08 X10^3/uL; Monocyte% 13.7 % (0-10); NRBC Flagged by Analyzer 0 % (0-5); Neutrophil # 4.95 X10^3/uL (2.7-7.7); Neutrophil % 62.7 % (47-70); Platelet Count 232 K/mm3 (150-450); RBC Distribution Width CV 15.7 % (11.6-14.6); RBC Distribution Width SD 51.3 fl (35.1-43.9); Red Blood Count 5.32 M/mm3 (4.6-6.2); White Blood Count 7.9 K/mm3 (4.4-11.0)
[2024-03-30 10:12] LABS: BNP,B-Type NATRIURETIC PEPTIDE 150.1 pg/mL (0-100)
--- NOTE | 2024-03-30 10:14 | ED.RN ---
CRITICAL TROPONIN OF 187. Dr. Olivia notified.
[2024-03-30 10:15] LABS: Anion Gap 5 (5-15); BUN 21 mg/dL (7-18); BUN/Creat Ratio 13.4 RATIO (10-20); Chloride 103 mmol/L (98-107); Creatinine, Serum 1.57 mg/dL (0.70-1.30); EST Glomerular Filtration Rate 48 mL/min (>60); Est Glom Filt Rate - Afr Amer 59 mL/min (>60); Estimated Creatinine Clearance 64.14 ml/min; Glucose 219 mg/dL (74-106); Potassium 4.4 mmol/L (3.5-5.1); Sodium Level 136 mmol/L (136-145); Troponin-I HS 187 pg/mL (3.0-78.0)
--- NOTE | 2024-03-30 10:15 | RAD_ITS ---
STUDY: X-RAY CHEST REASON FOR EXAM: Male, 58 years old. Chest pain TECHNIQUE: Single AP portable view of the chest. COMPARISON: Comparison is made with prior study January 26, 2024. FINDINGS: EKG electrodes are seen. The lungs are clear and expanded. There is no demonstrated pleural abnormality. Sternal cerclage wires and vascular clips are present from a prior sternotomy and coronary artery bypass graft procedure (CABG). A left-sided dual-chamber pacemaker is seen. Normal mediastinum and rosy. Normal visualized pulmonary arteries. Normal visualized aortic arch and descending thoracic aorta. Normal visualized thoracic spine. Normal visualized ribs, clavicles, and shoulders. There is no demonstrated abnormality of the visualized soft tissue structures of the upper abdomen. RAD/Chest 1 View (Portable) IMPRESSION: Status post CABG. No acute abnormality is seen. Electronically Signed: Brandon Cabrera MD at 10:28 EST ,
[2024-03-30] MEDS: Propofol 200 MG/20 ML Vial IV BOLUS (10:59)
--- NOTE | 2024-03-30 11:02 | ED.RN ---
Cardioverted at 360 J
[2024-03-30] MEDS: Amiodarone 150 MG in Dextrose 5%-Water (100mL Bag) 100 ML 600 MG IV BOLUS (12:05)
--- NOTE | 2024-03-30 12:43 | EKG12_ITS ---
Test Reason : REPEAT Blood Pressure : */* mmHG Vent. Rate : 144 BPM Atrial Rate : * BPM P-R Int : * ms QRS Dur : 90 ms QT Int : 316 ms P-R-T Axes : * 51 -83 degrees QTcB Int : 489 ms Critical Test Result: High HR Atrial fibrillation with rapid ventricular response ST & T wave abnormality, consider inferior ischemia Abnormal ECG Confirmed by MARIEL ROJAS, JEREMY ([id number]), editorial assistant MANUEL RIVERA ([id number]) on 04/01/2024 10:46:02 AM Referred By: Confirmed By: JEREMY FLOYD MD
--- NOTE | 2024-03-30 13:43 | ED.RN ---
Cardioverted at 1341 at 360 J
--- NOTE | 2024-03-30 13:53 | EKG12_ITS ---
Test Reason : EKG CHANGE Blood Pressure : */* mmHG Vent. Rate : 61 BPM Atrial Rate : 61 BPM P-R Int : 214 ms QRS Dur : 100 ms QT Int : 426 ms P-R-T Axes : * 57 262 degrees QTcB Int : 428 ms Atrial-paced rhythm with prolonged AV conduction with Premature supraventricular complexes RSR' or QR pattern in V1 suggests right ventricular conduction delay ST & T wave abnormality, consider inferior ischemia Abnormal ECG Confirmed by MARIEL ROJAS, JEREMY ([id number]), editorial writer MANUEL RIVERA ([id number]) on 04/01/2024 10:46:12 AM Referred By: Confirmed By: JEREMY FLOYD MD
[2024-03-30] MEDS: Propofol 200 MG/20 ML Vial 40 MG IV BOLUS (13:58)
== END 2024-03-30 14:58 | disposition home or self-care (01) ==
PROVIDERS: Emergency Provider Emergency Medicine; PCP Family Medicine; Visit Provider Emergency Medicine
DX: I48.0 Paroxysmal atrial fibrillation (principal); I25.10 Atherosclerotic heart disease of native coronary artery without angina pectoris; I10 Essential (primary) hypertension; E78.5 Hyperlipidemia, unspecified; G47.33 Obstructive sleep apnea (adult) (pediatric); Z79.899 Other long term (current) drug therapy; Z79.01 Long term (current) use of anticoagulants; Z95.0 Presence of cardiac pacemaker; Z95.1 Presence of aortocoronary bypass graft; Z95.5 Presence of coronary angioplasty implant and graft
CPT/HCPCS: 71045; 80048; 83880; 84484; 85025; 93005; 96365; 99152; 99284; A4216

== ENCOUNTER 2024-05-10 11:12 | Emergency (ER) | payer OTHER, SELFPAY ==
[2018-10-26 11:39] VITALS: BMI 38.9
[2024-05-10] VITALS (15 sets, daily range): BP systolic 108–157; BP diastolic 66–122; PULSE 62–138; RESP 15–26; TEMP 36.6–37.1; O2SAT 91–100; BMI 37.5
[2024-05-10] MEDS: Propofol 200 MG/20 ML Vial IV BOLUS (12:13)
--- NOTE | 2024-05-10 12:16 | EX.ED.DYSGE1 ---
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 Patient in atrial flutter 2-1 block) Timing: Continuous Quality: Cardiovascular Location: Atrial flutter Current Severity: Gone Maximum Severity: Patient has no symptoms Worsened by: Nothing Relieved by: Nothing Associated Symptoms Associated Symptoms: No symptoms Narrative Narrative: Patient is a 58-year-old male. He has history of atrial fibrillation and atrial flutter. He is on anticoagulant. He does have a pacemaker. He is status post ablation for atrial fibrillation. Review of records indicates he has history of diabetes mellitus, coronary artery disease, nonsustained paroxysmal ventricular tachycardia and sick sinus syndrome and reason for pacemaker. He was cardioverted December 14, 2021. Patient ate last evening. Not handing to drink since this morning. He has been cardioverted in the past with no complication to anesthesia. He Prior similar symptoms: Yes Recent Illness/Hospitalization: No PFSH PFSH Medical History Obesity Nonsustained paroxysmal ventricular tachycardia PAF (paroxysmal atrial fibrillation) Tachy-bradley syndrome Sick sinus syndrome History of cardioversion (12/14/21) ALICIA treated with BiPAP Essential hypertension HLD (hyperlipidemia) Atherosclerotic heart disease of [place] coronary artery without angina pectoris Home Medications ?Medication ?Instructions ?Recorded ?Last Taken ?Type hydrocodone-acetaminophen 5-325mg 1 tab PO BID PRN PAIN 09/08/20 01/24/24 History 5mg-325mg testosterone 1 % (50 mg/5 gram) 1 packet transdermal DAILY HORMONES 07/30/23 01/25/24 History transdermal gel packet tizanidine 4 mg tablet 4 mg PO QHS PRN MUSCLE SPASMS 07/30/23 01/25/24 History atorvastatin 40 mg tablet 40 mg PO QHS CHOLESTEROL #30 tabs 08/07/23 01/25/24 Rx apixaban 5 mg tablet (Eliquis) 5 mg PO BID BLOOD THINNER #60 tabs 12/05/23 01/26/24 Rx metoprolol succinate 50 mg 50 mg PO BID #60 tabs 09/19/24 10/14/24 Rx tablet,extended release 24 hr potassium chloride 20 mEq 20 meq PO BID SUPPLEMENT #270 tabs 01/02/24 01/26/24 Rx tablet,extended release(part/cryst) lisinopril 5 mg tablet 5 mg PO QDAY #90 tabs 01/05/24 01/26/24 Rx furosemide 40 mg tablet 80 mg (2 x 40 mg) PO BID EDEMA 03/18/24 Unknown Rx #180 tabs Allergy/AdvReac Type Severity Reaction Status Date / Time chlorhexidine (From Allergy Itching,erickson Verified 05/10/24 11:16 ChloraPrep Clear) h isopropyl alcohol (From Allergy Itching,erickson Verified 05/10/24 11:16 ChloraPrep Clear) h empagliflozin (From AdvReac Severe Genital Verified 05/10/24 11:16 Jardiance) yeast infection Family History Father CAD (coronary artery disease) Diabetes Cancer Mother Diabetes Brother brain aneurysm rupture Surgical History S/P ablation of atrial fibrillation S/P cardiac pacemaker procedure History of coronary artery stent placement (08/19/23) H/O coronary artery bypass surgery (12/02/08) History of arthroscopy of left shoulder (03/2017) History of left heart catheterization (LHC) (08/19/23) History of tonsillectomy Social History household members: spouse housing: house current occupational status: employed 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 Smoking Status: Never smoker alcohol intake: current alcohol intake frequency: a few times a month substance use type: does not use caffeine: Yes Type: carbonated beverages Number of servings: 5 and coffee Number of servings: 1 what type of physical activity do you participate in: none do you feel safe at home: Yes ROS ROS ED Constitutional Constitutional ED: Denies chills, fever(s), subjective, sweats or weight loss Eyes Eyes: Denies blurry vision or change in vision ENT ENT ED: Denies ear pain, rhinorrhea or sore throat Cardiovascular Cardiovascular: Reports palpitations and racing heartbeat; Denies chest pain, orthopnea or paroxysmal nocturnal dyspnea Respiratory/Chest Respiratory/Chest: Denies cough, dyspnea, dyspnea on exertion, orthopnea or paroxysmal nocturnal dyspnea Gastrointestinal Gastrointestinal: Denies abdominal pain, melena, nausea or vomiting Musculoskeletal Musculoskeletal: Denies arthralgias or myalgias Integumentary Denies rash Neurologic Neurologic: Denies headache(s) or paresthesias Psychiatric Psychiatric: Denies anxiety or depression Endocrine Endocrinology: Denies cold intolerance or heat intolerance Hematologic/Lymphatic Hematologic/Lymphatic: Reports easy bruising EXAM Physical Exam Const Vital Signs: 05/10/24 11:13 05/10/24 11:58 05/10/24 11:58 Temperature 97.9 F 98.5 F Temperature Source Oral Pulse Rate 68 120 H Respiratory Rate 22 H 26 H Blood Pressure 157/104 H 157/122 H Blood Pressure Mean 121 Pulse Ox 98 100 Oxygen Delivery Method Room Air Oxygen Flow Rate (L/min) 2 EtCo2 (Normal 35-45 , high quality CPR 10-20 & ROSC>/=40mmHg 31 32 Positive well nourished and well developed Constitutional Narrative: Patient appears in no distress. Blood pressure slightly elevated. Heart rate is rapid. EKG that accompanied patient from Dr. Zamudio's office reveals atrial flutter 2-1 block at 136. Patient is on amiodarone. General Appearance ED: well developed and NAD HEENT Reports moist mucous membranes HEENT Narrative: Head is atraumatic, cephalic. Ears normal. Nares patent. Mucosas moist. Eyes PERRL and EOMs intact bilaterally Neck no lymphadenopathy, supple and no JVD Chest Wall inspection of chest normal and palpation of chest normal Resp normal respiratory effort and clear to auscultation bilaterally Cardio regular rhythm, S1 normal heart sound, S2 normal heart sound and no murmurs Rate: tachycardic GI normal to inspection, nondistended, normoactive bowel sounds, non-tender, non-distended and no masses; Negative for hepatosplenomegaly Extremity General Extremety ED: Yes edema General Extremity: edema Neuro oriented x3 and CN's II-XII intact bilaterally Sensorium / Orientation: alert Psych mental status grossly normal Skin Skin Narrative: Patient is tanned. He states he goes to tanning bed. MDM MDM MDM Narrative Medical decision making narrative: Patient has no allergy to soy products or egg products. Patient been cardioverted in the past with no problems. Plan is cardioversion. EKG Initial EKG: Attestation: I personally reviewed and interpreted this EKG as follows: Interpretation: Atrial Fibrillation (Rate is 142. QRS duration 92 ms. QT duration 206 ms. I believe patient in all likelihood has atrial flutter with variable block and not atrial fibrillation.) Management Discussion w/another healthcare provider: Sales Planning Manager (Case discussed with cardiology prior to patient's arrival. If patient is successfully cardioverted plan is discharged to home.) Procedures Procedural Sedation 1 (Initial Baseline): Consent Signed: Yes Any Problems With Anesthesia: No You/Your family experience fever (hyperthermia) w/anesthesia: No Sedation medication: Propofol Dose: 140 Route: IV Total Moderate Sedation Units: 4 Maliampati Score: Class III ASA Classification: E and II Discharge Plan Triage Chief Complaint: Shortness of Breath ED Provider: Terrance Sanders Dx/Rx/DC Orders Clinical Impression: Atrial fibrillation, Atherosclerotic heart disease of [place] coronary artery without angina pectoris, Essential hypertension, ALICIA treated with BiPAP, Mild tricuspid insufficiency, Sick sinus syndrome, HLD (hyperlipidemia), 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, 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, On amiodarone therapy, Encounter for cardioversion procedure Prescriptions: No Action hydrocodone-acetaminophen 5-325 mg tablet 1 tab PO BID PRN (Reason: PAIN ) testosterone 1 % (50 mg/5 gram) gel in packet 1 packet transdermal DAILY tizanidine 4 mg tablet 4 mg PO QHS PRN (Reason: MUSCLE SPASMS ) atorvastatin 40 mg tablet 40 mg PO QHS Qty: 30 11RF Eliquis 5 mg tablet 5 mg PO BID Qty: 60 11RF metoprolol succinate 50 mg tablet extended release 24 hr 50 mg PO BID Qty: 60 11RF potassium chloride 20 mEq tablet,ER particles/crystals 20 meq PO BID Qty: 270 3RF lisinopril 5 mg tablet 5 mg PO QDAY Qty: 90 3RF furosemide 40 mg tablet 80 mg PO BID Qty: 180 3RF Primary Care Provider: Philip Coronado Referrals: Mina Enriquez MD [Med Staff - Active Staff] - As Needed Philip Coronado MD [Primary Care Provider] - Print Language: Mosotho Disposition Disposition: Home, Self Care
--- NOTE | 2024-05-10 12:54 | EKG12_ITS ---
Test Reason : PALP Blood Pressure : */* mmHG Vent. Rate : 142 BPM Atrial Rate : * BPM P-R Int : * ms QRS Dur : 92 ms QT Int : 306 ms P-R-T Axes : * 73 -76 degrees QTcB Int : 470 ms Critical Test Result: High HR Atrial fibrillation with rapid ventricular response Abnormal ECG Confirmed by ARUN ROJAS, SUSAN ([id number]), editorial cartoonist MANUEL RIVERA ([id number]) on 05/12/2024 6:20:12 AM Referred By: RAVEN Confirmed By: SUSAN DIAS MD
== END 2024-05-10 14:45 | disposition home or self-care (01) ==
PROVIDERS: Emergency Provider Emergency Medicine; PCP Family Medicine; Visit Provider Emergency Medicine
DX: I48.91 Unspecified atrial fibrillation (principal); I49.5 Sick sinus syndrome; E78.5 Hyperlipidemia, unspecified; I25.10 Atherosclerotic heart disease of native coronary artery without angina pectoris; G47.33 Obstructive sleep apnea (adult) (pediatric); I10 Essential (primary) hypertension; I07.1 Rheumatic tricuspid insufficiency; Z79.01 Long term (current) use of anticoagulants; Z95.0 Presence of cardiac pacemaker; Z95.5 Presence of coronary angioplasty implant and graft
CPT/HCPCS: 92960; 93005; 99284; A4216

== ENCOUNTER → 2024-06-01 | Outpatient (CLI) | payer OTHER, SELFPAY ==
[2018-10-26 11:39] VITALS: BMI 38.9
--- NOTE | 2024-06-01 14:56 | VDLE_ITS ---
Reason For Study Reason For Study: Bilateral leg swelling RIGHT LEFT GSV is normal. CFV is compressible, spontaneous, competent, and CFV is compressible, spontaneous, competent and demonstrates pulsatile venous flow. demonstrates pulsatile venous flow. FV is compressible, spontaneous, competent and FV is compressible, spontaneous, competent and demonstrates pulsatile venous flow. demonstrates pulsatile venous flow. POP V is compressible, spontaneous, competent and POP V is compressible, spontaneous, competent and demonstrates pulsatile venous flow. demonstrates pulsatile venous flow. T/P Trunk is compressible. T/P Trunk is compressible. PTV is compressible. PTV is compressible. LT PerV is compressible. RT PerV is compressible. GSV previously harvested. Procedure This is a venous duplex using B-mode, color flow and spectral Doppler. Exam performed in department. A preliminary report was called and/or faxed to Rae RODRÍGUEZ. VL/Venous Duplex US - Ananda Extrem Interpretation Summary Deep veins of the bilateral lower extremities are patent and compressible segme ntally. There is no evidence of bilateral lower extremity deep vein thrombosis. The right great saphenous vein appears pa tent and compressible segmentally. Ordering Physician: Gregory Coon Referring Physician: MD Cliff Philip Performed By: Marisa Kumar RVT
--- NOTE | 2024-06-01 15:07 | ECHOLC_ITS ---
Reason For Study Reason For Study: CONGESTIVE HEART FAILURE Procedure This was a limited 2D transthoracic echocardiogram. The study was technically difficult. Contrast injection was performed. Exam performed in department. Left Ventricle Normal size and thickness. Borderline LV systolic function. Estimated LVEF 45 to 50%. Stage III diastolic dysfunction with high left atrial pressures. Right Ventricle Normal right ventricle. Atria The left atrium is severely enlarged. The right atrium is moderately enlarged. Mitral Valve Mild (1+) mitral valve insufficiency. Tricuspid Valve Mild tricuspid valve insufficiency. Right ventricular systolic pressure estimated to be 54 mmHg. Aortic Valve Trisinus/trileaflet aortic valve. Pulmonic Valve The pulmonic valve is not well visualized. Great Vessels The aortic root is not well visualized. Pericardium/Pleural No pericardial effusion. Medication 22 gauge I.V. with prn adaptor inserted into right arm. Diluted definity 2.5ml given slow IV push to enhance endocardial definition. MMode/2D Measurements & Calculations LVIDd: 4.6 cm IVSd: 0.85 cm LAV(MOD- bp): 69.5 ml LVIDs: 3.0 cm LVPWd: 1.3 cm RVDd: 3.8 cm FS: 35.1 % LAV(MOD- bp) Indexed: 30.6 ml/m2 LAV(MOD- sp2): 66.5 ml LAV(MOD- sp4): 59.4 ml SV(MOD- sp4): 78.0 ml LVAd ap4: 40.5 cm2 LVAd ap2: 47.3 cm2 LVLd ap4: 8.1 cm LVLd ap2: 8.7 cm SI(MOD- sp4): 34.3 ml/m2 EDV(MOD-sp4): 161.1 ml EDV(MOD-sp2): 215.5 ml EDV(sp4-el): 173.0 ml EDV(sp2-el): 219.2 ml LVAs ap4: 27.1 cm2 LVAs ap2: 32.9 cm2 LVLs ap4: 7.2 cm LVLs ap2: 7.7 cm ESV(MOD-sp4): 83.1 ml ESV(MOD-sp2): 116.5 ml ESV(sp4-el): 86.5 ml ESV(sp2-el): 119.2 ml EF(MOD-sp4): 48.4 % EF(MOD-sp2): 45.9 % EF(sp4-el): 50.0 % SV(MOD-sp2): 99.0 ml SV(sp4-el): 86.6 ml LA A4 area: 19.8 cm2 SI(MOD-sp2): 43.6 ml/m2 LA dimension(2D): 5.2 cm TAPSE: 1.7 cm RA A4 area: 14.8 cm2 Time Measurements MV dec time: 0.25 sec Doppler Measurements & Calculations MV E max greg: 129.4 cm/sec Lat Peak E' Greg: 6.9 cm/sec Med Peak E' Greg: 5.9 cm/sec MV A max greg: 40.3 cm/sec E/E' lat: 18.6 E/E' med: 21.9 MV E/A: 3.2 MV dec slope: 526.6 cm/sec2 TR max greg: 312.9 cm/sec TR max P.2 mmHg ECHO/Echo Limited w/Contrast Interpretation Summary The study was technically difficult. Borderline LV systolic function. Estimated LVEF 45 to 50%. Stage III diastolic dysfunction with high left atrial pressures. The left atrium is severely enlarged. The right atrium is moderately enlarged. Mild (1+) mitral valve insufficiency. Mild tricuspid valve insufficiency. Right ventricular systolic pressure estimated to be 54 mmHg. Ordering Physician: Gregory Coon Referring Physician: MD Cliff Philip Performed By: Ellen Osborne RDCS
[2024-06-01 16:57] LABS: Anion Gap 10 (5-15); BUN 21 mg/dL (7-18); BUN/Creat Ratio 16.8 RATIO (10-20); Chloride 102 mmol/L (98-107); Creatinine, Serum 1.25 mg/dL (0.70-1.30); EST Glomerular Filtration Rate 63 mL/min (>60); Est Glom Filt Rate - Afr Amer 76 mL/min (>60); Glucose 110 mg/dL (74-106); Potassium 3.7 mmol/L (3.5-5.1); Sodium Level 140 mmol/L (136-145)
== END | disposition home or self-care (01) ==
PROVIDERS: PCP Family Medicine; Referring Provider Nurse Practitioner Family; Visit Provider Nurse Practitioner Family
DX: I50.23 Acute on chronic systolic (congestive) heart failure (principal); R60.0 Localized edema; N28.9 Disorder of kidney and ureter, unspecified; R06.02 Shortness of breath; I70.92 Chronic total occlusion of artery of the extremities
CPT/HCPCS: 36415; 80048; 93308; 93970; Q9957; A4216; C8924

== ENCOUNTER → 2024-07-01 | Outpatient (CLI) | payer OTHER, SELFPAY ==
[2018-10-26 11:39] VITALS: BMI 38.9
--- NOTE | 2024-07-01 14:20 | STRESSREP ---
Stress Test Report Pharmacologic myocardial perfusion stress test. 58-year-old man with a history of coronary disease status post previous coronary bypass surgery. Resting EKG demonstrates sinus rhythm with a rate of 62 bpm. Diffuse T wave inversions noted in the inferior leads and flattening of T waves in the lateral leads. Resting blood pressure is 110/68 mmHg. 0.4 mg of regadenoson was infused per usual protocol followed by rapid intravenous saline flush injection. Continuous EKG monitoring was performed. The maximum heart rate was 63 bpm which was 38% of max impacted heart rate the maximum workload was 1 metabolic equivalent. At rest there were no ST or T wave changes noted to suggest ischemia and at peak infusion nonspecific ST changes were noted which did not meet the criteria for ischemia. No clinical angina is noted. The final blood pressure was 108/60 mmHg. Myocardial perfusion protocol. 14.3 mCi of technetium 99m sestamibi was injected at rest. 0.4 mg of regadenoson was infused per usual protocol. At peak infusion 44.5 mCi of technetium 99m sestamibi was injected stress images were obtained stress and rest images were reconstructed and compared in the short axis vertical long and horizontal long axis. Gated images were also obtained. Perfusion SPECT analysis: Review of the stress images demonstrate normal uptake of tracer noted in all areas of the myocardium with a medium size defect noted in the anterolateral wall. The resting images similar demonstrated normal uptake of tracer noted in all areas of the myocardium. The above is suggestive of anterolateral ischemia present. This is a medium size zone. Gated SPECT analysis: The gated ejection fraction is 63%. Conclusion: Abnormal pharmacologic myocardial perfusion stress test. Anterolateral ischemia present moderate Preserved ejection fraction.
== END | disposition home or self-care (01) ==
LOC: CVS 06:44
PROVIDERS: PCP Family Medicine; Referring Provider Nurse Practitioner Family; Visit Provider Nurse Practitioner Family
DX: I25.10 Atherosclerotic heart disease of native coronary artery without angina pectoris (principal); Z95.5 Presence of coronary angioplasty implant and graft; Z95.1 Presence of aortocoronary bypass graft
CPT/HCPCS: 78452; 93017; A9500; A4216; J2785

== ENCOUNTER 2024-07-04 11:27 | Emergency (ER) | payer OTHER, SELFPAY ==
[2018-10-26 11:39] VITALS: BMI 38.9
[2024-07-04] VITALS (9 sets, daily range): BP systolic 95–130; BP diastolic 49–85; PULSE 60–145; RESP 16–26; TEMP 35.7–36.6; O2SAT 96–99; BMI 36.7
--- NOTE | 2024-07-04 11:45 | RAD_ITS ---
EXAM: CHEST PA AND LATERAL CLINICAL HISTORY: SOB COMPARISON: Chest x-ray of 03/30/2024 TECHNIQUE: PA and lateral views of the chest obtained. RAD/Chest PA and Lateral IMPRESSION: Prior sternotomy again seen. Left thoracic transvenous pacemaker with atrial a nd ventricular leads appears unchanged. Prior coronary artery stenting noted. The cardiomediastinal silhouette is within the normal range. Chronic lung changes are noted, but no acute pneumonic process is identified. No pleural effusion or pneumothorax is seen. Generalized osteopenia is seen. No interval osseous changes noted. 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 No radiographic evidence of acute cardiopulmonary disease. Reading Location: [id number]
[2024-07-04 11:49] LABS: Absolute Lymphocyte Count 1.28 X10^3/uL (0.83-4.51); Absolute Neutrophil Count 3.4 X10^3/uL (2.0-7.7); Basophil# 0.06 X10^3/uL; Basophil% 1.1 % (0-1); Eosinophils% 1.8 % (0-5); Hemoglobin 15.1 g/dL (13.0-16.5); Lymphocyte # 1.28 X10^3/ul (0.83-4.51); Lymphocyte % 22.9 % (19-41); Mean Corp Hgb Conc 33.6 g/dL (32-36); Mean Corpuscular Hgb 31.1 pg (27.0-32.0); Mean Corpuscular Volume 92.6 fL (80-94); Mean Platelet Vol. 10.8 fl (6.2-12.0); Monocyte# 0.68 X10^3/uL; Monocyte% 12.2 % (0-10); NRBC Flagged by Analyzer 0 % (0-5); Neutrophil # 3.44 X10^3/uL (2.7-7.7); Neutrophil % 61.5 % (47-70); Platelet Count 166 K/mm3 (150-450); RBC Distribution Width CV 12.4 % (11.6-14.6); RBC Distribution Width SD 42.2 fl (35.1-43.9); Red Blood Count 4.86 M/mm3 (4.6-6.2); White Blood Count 5.6 K/mm3 (4.4-11.0)
--- NOTE | 2024-07-04 11:51 | EDS_ITS ---
HPI <EMMA Del Toro - Last Filed: 07/04/24 16:59> History of Present Illness Chief Complaint: Palpitations Narrative Narrative: Patient resenting today due to concerns for atrial fibrillation and shortness of breath that he has had since Friday. He has a history of A-fib and a flutter, he is on Eliquis, he is compliant with this medication. He denies any history of blood clots or recent surgery/travel/immobilization. He has been cardioverted in the past, he was last cardioverted back in April of this year. He denies chest pain, fevers, chills, abdominal pain, nausea, vomiting. He also has a history of a pacemaker due to a history of nonsustained V. tach and sick sinus syndrome, T2DM, CAD, and HTN. [facility] <EMMA Del Toro - Last Filed: 07/04/24 16:59> [facility] Medical History Obesity Nonsustained paroxysmal ventricular tachycardia PAF (paroxysmal atrial fibrillation) Tachy-bradley syndrome Sick sinus syndrome ALICIA treated with BiPAP Essential hypertension HLD (hyperlipidemia) Atherosclerotic heart disease of [place] coronary artery without angina pectoris Home Medications ?Medication ?Instructions ?Recorded ?Last Taken ?Type hydrocodone-acetaminophen 5-325mg 1 tab PO BID PRN EDGARDO N 09/08/20 01/24/24 History 5mg-325mg testosterone 1 % (50 mg/5 gram) 1 packet transdermal D AILY HORMONES 07/30/23 01/25/24 History transdermal gel packet tizanidine 4 mg tablet 4 mg PO QHS PRN MUSCLE SPASM S 07/30/23 01/25/24 History atorvastatin 40 mg tablet 40 mg PO QHS CHOLESTEROL #3 0 tabs 08/07/23 01/25/24 Rx apixaban 5 mg tablet (Eliquis) 5 mg PO BID BLOOD THINN ER #60 tabs 12/05/23 01/26/24 Rx metoprolol succinate 50 mg 50 mg PO BID #60 tabs 12/3101/26/24 Rx tablet,extended release 24 hr potassium chloride 20 mEq 20 meq PO BID SUPPLEMENT #2 70 tabs 01/02/24 01/26/24 Rx tablet,extended release(part/cryst) lisinopril 5 mg tablet 5 mg PO QDAY #90 tabs 01/26/24 Rx furosemide 40 mg tablet 80 mg (2 x 40 mg) PO BID VARINDER MA 03/18/24 Unknown Rx #180 tabs spironolactone 25 mg tablet 25 mg PO DAILY edema #90 t abs 06/02/24 Unknown Rx Allergy/AdvReac Type Severity Reaction Status Date / Time chlorhexidine (From Allergy Itching,erickson Verified 07/04/24 11:28 ChloraPrep Clear) h isopropyl alcohol (From Allergy Itching,erickson Verified 07/04/24 11:28 ChloraPrep Clear) h empagliflozin (From AdvReac Severe Genital Verified 07/04/24 11:28 Jardiance) yeast infection Family History Father CAD (coronary artery disease) Diabetes Cancer Mother Diabetes Brother brain aneurysm rupture Surgical History History of cardioversion (05/10/24) S/P ablation of atrial fibrillation S/P cardiac pacemaker procedure History of coronary artery stent placement (08/19/23) H/O coronary artery bypass surgery (12/02/08) History of arthroscopy of left shoulder (03/2017) History of left heart catheterization (LHC) (08/19/23) History of tonsillectomy Social History household members: spouse housing: house current occupational status: employed 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 Smoking Status: Never smoker alcohol intake: current alcohol intake frequency: a few times a month substance use type: does not use caffeine: Yes Type: carbonated beverages Number of servings: 5 and coffee Number of servings: 1 what type of physical activity do you participate in: none do you feel safe at home: Yes ROS <EMMA Del Toro - Last Filed: 07/04/24 16:59> ROS ED Constitutional Constitutional ED: Denies chills or fever(s) Cardiovascular Cardiovascular: Reports palpitations and racing heartbeat; Denies chest pain Respiratory/Chest Respiratory/Chest: Reports dyspnea; Denies cough Gastrointestinal Gastrointestinal: Denies abdominal pain, diarrhea, nausea or vomiting Musculoskeletal Musculoskeletal: Denies arthralgias or myalgias Integumentary Denies rash Neurologic Neurologic: Denies weakness EXAM <EMMA Del Toro - Last Filed: 07/04/24 16:59> Physical Exam Const Vital Signs: 07/04/24 11:28 07/04/24 11:57 07/04/24 11:57 Temperature 96.3 F L 98 F Temperature Source Temporal Pulse Rate 140 H 145 H Pulse Rate [1 (Initial Baseline)] 145 H Pulse Rate [2] 128 H Pulse Rate [3] 60 Respiratory Rate 18 26 H Respiratory Rate [1 (Initial Baseline)] 16 Respiratory Rate [2] 18 Respiratory Rate [3] 18 Blood Pressure 120/77 130/82 H Blood Pressure [1 (Initial Baseline)] 130/69 H Blood Pressure [2] 120/84 H Blood Pressure [3] 122/85 H Blood Pressure Mean 91 Baseline BP 130/82 Pulse Ox 96 96 Oxygen Delivery Method Room Air Room Air Oxygen Delivery Method [1 (Initial Baseline)] Nasal Cannula Oxygen Delivery Method [3] Room Air Oxygen Flow Rate (L/min) Oxygen Flow Rate (L/min) [1 (Initial Baseline)] 6 Oxygen Flow Rate (L/min) [2] 5 EtCo2 (Normal 35-45 , high quality CPR 10-20 & ROSC>/=40mmHg EtCo2 (Normal 35-45 , high quality CPR 10-20 & ROSC>/=40mmHg [1 (Initial Baseline)] 29 EtCo2 (Normal 35-45 , high quality CPR 10-20 & ROSC>/=40mmHg [2] 26 EtCo2 (Normal 35-45 , high quality CPR 10-20 & ROSC>/=40mmHg [3] 32 07/04/24 11:57 07/04/24 12:28 07/04/24 12:39 Temperature Temperature Source Pulse Rate 60 60 Pulse Rate [1 (Initial Baseline)] Pulse Rate [2] Pulse Rate [3] Respiratory Rate 18 22 H Respiratory Rate [1 (Initial Baseline)] Respiratory Rate [2] Respiratory Rate [3] Blood Pressure 120/84 H 122/85 H Blood Pressure [1 (Initial Baseline)] Blood Pressure [2] Blood Pressure [3] Blood Pressure Mean 96 Baseline BP Pulse Ox 99 99 Oxygen Delivery Method Room Air Nasal Cannula Oxygen Delivery Method [1 (Initial Baseline)] Oxygen Delivery Method [3] Oxygen Flow Rate (L/min) Oxygen Flow Rate (L/min) [1 (Initial Baseline)] Oxygen Flow Rate (L/min) [2] EtCo2 (Normal 35-45 , high quality CPR 10-20 & ROSC>/=40mmHg 30 27 EtCo2 (Normal 35-45 , high quality CPR 10-20 & ROSC>/=40mmHg [1 (Initial Baseline)] EtCo2 (Normal 35-45 , high quality CPR 10-20 & ROSC>/=40mmHg [2] EtCo2 (Normal 35-45 , high quality CPR 10-20 & ROSC>/=40mmHg [3] 07/04/24 12:44 07/04/24 12:49 07/04/24 13:00 Temperature Temperature Source Pulse Rate 60 60 60 Pulse Rate [1 (Initial Baseline)] Pulse Rate [2] Pulse Rate [3] Respiratory Rate 18 20 H 18 Respiratory Rate [1 (Initial Baseline)] Respiratory Rate [2] Respiratory Rate [3] Blood Pressure 100/62 104/62 95/49 L Blood Pressure [1 (Initial Baseline)] Blood Pressure [2] Blood Pressure [3] Blood Pressure Mean 64 Baseline BP Pulse Ox 98 99 99 Oxygen Delivery Method Room Air Room Air Room Air Oxygen Delivery Method [1 (Initial Baseline)] Oxygen Delivery Method [3] Oxygen Flow Rate (L/min) 99 Oxygen Flow Rate (L/min) [1 (Initial Baseline)] Oxygen Flow Rate (L/min) [2] EtCo2 (Normal 35-45 , high quality CPR 10-20 & ROSC>/=40mmHg 30 30 EtCo2 (Normal 35-45 , high quality CPR 10-20 & ROSC>/=40mmHg [1 (Initial Baseline)] EtCo2 (Normal 35-45 , high quality CPR 10-20 & ROSC>/=40mmHg [2] EtCo2 (Normal 35-45 , high quality CPR 10-20 & ROSC>/=40mmHg [3] 07/04/24 14:00 07/04/24 14:28 Temperature 98 F Temperature Source Pulse Rate 74 74 Pulse Rate [1 (Initial Baseline)] Pulse Rate [2] Pulse Rate [3] Respiratory Rate 16 16 Respiratory Rate [1 (Initial Baseline)] Respiratory Rate [2] Respiratory Rate [3] Blood Pressure 118/84 H 118/84 H Blood Pressure [1 (Initial Baseline)] Blood Pressure [2] Blood Pressure [3] Blood Pressure Mean 95 95 Baseline BP Pulse Ox 98 98 Oxygen Delivery Method Room Air Oxygen Delivery Method [1 (Initial Baseline)] Oxygen Delivery Method [3] Oxygen Flow Rate (L/min) Oxygen Flow Rate (L/min) [1 (Initial Baseline)] Oxygen Flow Rate (L/min) [2] EtCo2 (Normal 35-45 , high quality CPR 10-20 & ROSC>/=40mmHg EtCo2 (Normal 35-45 , high quality CPR 10-20 & ROSC>/=40mmHg [1 (Initial Baseline)] EtCo2 (Normal 35-45 , high quality CPR 10-20 & ROSC>/=40mmHg [2] EtCo2 (Normal 35-45 , high quality CPR 10-20 & ROSC>/=40mmHg [3] Positive well nourished, well developed and no apparent distress General Appearance ED: well developed HEENT Reports normocephalic and head/scalp atraumatic Mouth ED: Yes moist mucous membranes normal Eyes PERRL and EOMs intact bilaterally Neck full ROM and supple Chest Wall inspection of chest normal Resp normal respiratory effort and clear to auscultation bilaterally Cardio Rhythm: abnormal rhythm irregularly irregular GI soft to palpation, non-tender, non-distended and no masses Back/Spine normal ROM and normal to inspection Extremity normal to inspection and full ROM Neuro oriented x3, CN's II-XII intact bilaterally, moves all extremities, no focal motor deficits and no sensory deficits noted Sensorium / Orientation: awake and alert Psych mental status grossly normal and thought process normal Skin no rashes or lesions noted and no wounds <Dr. Terrance Sanders MD - Last Filed: 07/04/24 17:34> Physical Exam Const Vital Signs: 07/04/24 11:28 07/04/24 11:57 07/04/24 11:57 Temperature 96.3 F L 98 F Temperature Source Temporal Pulse Rate 140 H 145 H Pulse Rate [1 (Initial Baseline)] 145 H Pulse Rate [2] 128 H Pulse Rate [3] 60 Respiratory Rate 18 26 H Respiratory Rate [1 (Initial Baseline)] 16 Respiratory Rate [2] 18 Respiratory Rate [3] 18 Blood Pressure 120/77 130/82 H Blood Pressure [1 (Initial Baseline)] 130/69 H Blood Pressure [2] 120/84 H Blood Pressure [3] 122/85 H Blood Pressure Mean 91 Baseline BP 130/82 Pulse Ox 96 96 Oxygen Delivery Method Room Air Room Air Oxygen Delivery Method [1 (Initial Baseline)] Nasal Cannula Oxygen Delivery Method [3] Room Air Oxygen Flow Rate (L/min) Oxygen Flow Rate (L/min) [1 (Initial Baseline)] 6 Oxygen Flow Rate (L/min) [2] 5 EtCo2 (Normal 35-45 , high quality CPR 10-20 & ROSC>/=40mmHg EtCo2 (Normal 35-45 , high quality CPR 10-20 & ROSC>/=40mmHg [1 (Initial Baseline)] 29 EtCo2 (Normal 35-45 , high quality CPR 10-20 & ROSC>/=40mmHg [2] 26 EtCo2 (Normal 35-45 , high quality CPR 10-20 & ROSC>/=40mmHg [3] 32 07/04/24 11:57 07/04/24 12:28 07/04/24 12:39 Temperature Temperature Source Pulse Rate 60 60 Pulse Rate [1 (Initial Baseline)] Pulse Rate [2] Pulse Rate [3] Respiratory Rate 18 22 H Respiratory Rate [1 (Initial Baseline)] Respiratory Rate [2] Respiratory Rate [3] Blood Pressure 120/84 H 122/85 H Blood Pressure [1 (Initial Baseline)] Blood Pressure [2] Blood Pressure [3] Blood Pressure Mean 96 Baseline BP Pulse Ox 99 99 Oxygen Delivery Method Room Air Nasal Cannula Oxygen Delivery Method [1 (Initial Baseline)] Oxygen Delivery Method [3] Oxygen Flow Rate (L/min) Oxygen Flow Rate (L/min) [1 (Initial Baseline)] Oxygen Flow Rate (L/min) [2] EtCo2 (Normal 35-45 , high quality CPR 10-20 & ROSC>/=40mmHg 30 27 EtCo2 (Normal 35-45 , high quality CPR 10-20 & ROSC>/=40mmHg [1 (Initial Baseline)] EtCo2 (Normal 35-45 , high quality CPR 10-20 & ROSC>/=40mmHg [2] EtCo2 (Normal 35-45 , high quality CPR 10-20 & ROSC>/=40mmHg [3] 07/04/24 12:44 07/04/24 12:49 07/04/24 13:00 Temperature Temperature Source Pulse Rate 60 60 60 Pulse Rate [1 (Initial Baseline)] Pulse Rate [2] Pulse Rate [3] Respiratory Rate 18 20 H 18 Respiratory Rate [1 (Initial Baseline)] Respiratory Rate [2] Respiratory Rate [3] Blood Pressure 100/62 104/62 95/49 L Blood Pressure [1 (Initial Baseline)] Blood Pressure [2] Blood Pressure [3] Blood Pressure Mean 64 Baseline BP Pulse Ox 98 99 99 Oxygen Delivery Method Room Air Room Air Room Air Oxygen Delivery Method [1 (Initial Baseline)] Oxygen Delivery Method [3] Oxygen Flow Rate (L/min) 99 Oxygen Flow Rate (L/min) [1 (Initial Baseline)] Oxygen Flow Rate (L/min) [2] EtCo2 (Normal 35-45 , high quality CPR 10-20 & ROSC>/=40mmHg 30 30 EtCo2 (Normal 35-45 , high quality CPR 10-20 & ROSC>/=40mmHg [1 (Initial Baseline)] EtCo2 (Normal 35-45 , high quality CPR 10-20 & ROSC>/=40mmHg [2] EtCo2 (Normal 35-45 , high quality CPR 10-20 & ROSC>/=40mmHg [3] 07/04/24 14:00 07/04/24 14:28 Temperature 98 F Temperature Source Pulse Rate 74 74 Pulse Rate [1 (Initial Baseline)] Pulse Rate [2] Pulse Rate [3] Respiratory Rate 16 16 Respiratory Rate [1 (Initial Baseline)] Respiratory Rate [2] Respiratory Rate [3] Blood Pressure 118/84 H 118/84 H Blood Pressure [1 (Initial Baseline)] Blood Pressure [2] Blood Pressure [3] Blood Pressure Mean 95 95 Baseline BP Pulse Ox 98 98 Oxygen Delivery Method Room Air Oxygen Delivery Method [1 (Initial Baseline)] Oxygen Delivery Method [3] Oxygen Flow Rate (L/min) Oxygen Flow Rate (L/min) [1 (Initial Baseline)] Oxygen Flow Rate (L/min) [2] EtCo2 (Normal 35-45 , high quality CPR 10-20 & ROSC>/=40mmHg EtCo2 (Normal 35-45 , high quality CPR 10-20 & ROSC>/=40mmHg [1 (Initial Baseline)] EtCo2 (Normal 35-45 , high quality CPR 10-20 & ROSC>/=40mmHg [2] EtCo2 (Normal 35-45 , high quality CPR 10-20 & ROSC>/=40mmHg [3] [facility] <EMMA Del Toro - Last Filed: 07/04/24 16:59> [facility] Narrative Medical decision making narrative: Patient presenting today due to palpitations, racing heartbeat, feeling like he has been in A-fib since Friday. He also has been feeling short of breath. No chest pain. He is in atrial fibrillation here had a rate of 140 bpm. Given he is symptomatic with this and has been cardioverted in the past, we will cardiovert him today. He last ate yesterday evening. Patient was converted by the attending physician. The second attempt was successful, he is now in a paced rhythm. He reports significant improvement of his symptoms. He was given IV fluids due to slightly low blood pressure which did improve. I did speak with Dr. Enriquez who is comfortable with this plan. He is scheduled to see an EP soon for a ablation. Return instructions discussed and patient discharged home in stable condition. I have personally performed a face to face assessment of the patient and have reviewed the JAYSHREE Note. I performed a substantive portion of the visit including all aspects of the following. My baker findings include: History is remarkable for a fibrillation requiring cardioversion. He is on anticoagulant. He is missed no doses. His labels molder is Dr. Enriquez. Patient does report dyspnea on exertion. He denies PND or orthopnea. He denies chest discomfort. Does report palpitations and irregular beat. Exam is patient's vital signs noted. He is not hemodynamically unstable. Vital are remarkable for heart rate of 140. Monitor reveals atrial fibrillation with narrow complexes. HEENT exam is unremarkable. Heart is rapid and irregular. There is no murmur. Lungs are good auscultation. Medical Decision Making patient was consented for cardioversion. Patient is scheduled to see Dr. Cramer this coming month for ablation. This was arranged by Dr. Zamudio. Dr. Zamudio was made aware of the patient. Plan is to discharge to home. Other additions or changes: [None] Lab Data Attestation: I reviewed the patient's lab results. Labs: Laboratory Results - last 24 hr 07/04/24 11:40 WBC 5.6 RBC 4.86 Hgb 15.1 Hct 45.0 MCV 92.6 MCH 31.1 MCHC 33.6 RDW Std Deviation 42.2 RDW Coeff of Ashwini 12.4 Plt Count 166 MPV 10.8 Immature Gran % (Auto) 0.500 Neut % (Auto) 61.5 Lymph % (Auto) 22.9 [place] % (Auto) 12.2 H Eos % (Auto) 1.8 Baso % (Auto) 1.1 H Absolute Neuts (auto) 3.4 Absolute Lymphs (auto) 1.28 Nucleated RBC % 0 Sodium 135 Potassium 4.9 Chloride 101 Carbon Dioxide 23.2 Anion Gap 11 BUN 22 H Creatinine 1.31 H Estim Creat Clear Calc 76.16 Est GFR (MDRD) Non-Af 63 BUN/Creatinine Ratio 17.0 Glucose 196 H Calcium 9.8 Radiography Diagnostic Testing: Clinical Impression(s) from Imaging Studies Chest X-Ray 07/04/24 11:45 IMPRESSION: Prior sternotomy again seen. Left thoracic transvenous pacemaker with atrial and ventricular leads appears unchanged. Prior coronary artery stenting noted. The cardiomediastinal silhouette is within the normal range. Chronic lung changes are noted, but no acute pneumonic process is identified. No pleural effusion or pneumothorax is seen. Generalized osteopenia is seen. No interval osseous changes noted. 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 No radiographic evidence of acute cardiopulmonary disease. Reading Location: [id number] <Dr. Terrance aSnders MD - Last Filed: 07/04/24 17:34> [facility] Narrative Medical decision making narrative: Patient presenting today due to palpitations, racing heartbeat, feeling like he has been in A-fib since Friday. He also has been feeling short of breath. No chest pain. He is in atrial fibrillation here had a rate of 140 bpm. Given he is symptomatic with this and has been cardioverted in the past, we will cardiovert him today. He last ate yesterday evening. I have personally performed a face to face assessment of the patient and have reviewed the JAYSHREE Note. I performed a substantive portion of the visit including all aspects of the following. My baker findings include: History is remarkable for a fibrillation requiring cardioversion. He is on anticoagulant. He is missed no doses. His labels molder is Dr. Enriquez. Patient does report dyspnea on exertion. He denies PND or orthopnea. He denies chest d iscomfort. Does report palpitations and irregular beat. Exam is patient's vital signs noted. He is not hemodynamically unstable. Vital are remarkable for heart rate of 140. Monitor reveals atrial fibrillation with narrow complexes. HEENT exam is unremarkable. Heart is rapid and irregular. There is no murmur. Lungs are good auscultation. Medical Decision Making patient was consented for cardioversion. Patient is scheduled to see Dr. Cramer this coming month for ablation. This was arranged by Dr. Zamudio. Dr. Zamudio was made aware of the patient. Plan is to discharge to home. Other additions or changes: [None] Lab Data Lab results narrative: CBC is unremarkable. BMP is remarkable for a creatinine of 1.31 which is about patient's baseline. Labs: Laboratory Results - last 24 hr 07/04/24 11:40 WBC 5.6 RBC 4.86 Hgb 15.1 Hct 45.0 MCV 92.6 MCH 31.1 MCHC 33.6 RDW Std Deviation 42.2 RDW Coeff of Ashwini 12.4 Plt Count 166 MPV 10.8 Immature Gran % (Auto) 0.500 Neut % (Auto) 61.5 Lymph % (Auto) 22.9 [place] % (Auto) 12.2 H Eos % (Auto) 1.8 Baso % (Auto) 1.1 H Absolute Neuts (auto) 3.4 Absolute Lymphs (auto) 1.28 Nucleated RBC % 0 Sodium 135 Potassium 4.9 Chloride 101 Carbon Dioxide 23.2 Anion Gap 11 BUN 22 H Creatinine 1.31 H Estim Creat Clear Calc 76.16 Est GFR (MDRD) Non-Af 63 BUN/Creatinine Ratio 17.0 Glucose 196 H Calcium 9.8 Radiography Chest X-Ray - ED: 2 View and Read by ED Physician (Sternotomy wires noted. Dual-chamber pacemaker noted as well. Lung parenchyma is unremarkable. No effusion. Cardiac silhouette and size normal. Mediastinum is normal.Dorsal spine is unremarkable. This is independent reviewed interpreted by me at 12 noon.) Diagnostic Testing: Clinical Impression(s) from Imaging Studies Chest X-Ray 07/04/24 11:45 IMPRESSION: Prior sternotomy again seen. Left thoracic transvenous pacemaker with atrial and ventricular leads appears unchanged. Prior coronary artery stenting noted. The cardiomediastinal silhouette is within the normal range. Chronic lung changes are noted, but no acute pneumonic process is identified. No pleural effusion or pneumothorax is seen. Generalized osteopenia is seen. No interval osseous changes noted. 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 No radiographic evidence of acute cardiopulmonary disease. Reading Location: [address] Radiology report was reviewed. EKG Initial EKG: Attestation: I personally reviewed and interpreted this EKG as follows: Interpretation: Atrial Flutter (Rate is 133. Complexes narrow. QRS duration 86 ms. QT duration 208 ms. Gueydan is normal. There is a Berendt versus premature ventricular beat noted. There is 1 paced beat noted.) Follow-up EKG: Attestation: I personally reviewed and interpreted this EKG as follows: Interpretation: Paced (Rate is 60. This is a atrial paced rhythm with a prolonged AV conduction. HI interval is 222 ms. QS duration 100 ms. QT durations 4 and 10 ms. Gueydan is soft to the right. Patient has nonseptic ST-T wave changes noted.) Management Discussion w/another healthcare provider: Member Service Specialist (Patient's labels molder was made aware. Plan is discharge to home.) Procedures <Dr. Terrance Sanders MD - Last Filed: 07/04/24 17:34> Procedural Sedation 1 (Initial Baseline): Consent Signed: Yes Any Problems With Anesthesia: No Sedation medication: Propofol Dose: 4 (Minutes) Total Moderate Sedation Units: 80 (Milligram) Maliampati Score: Class II ASA Classification: III Comment:: Patient has history of A-fib with RVR. Last month patient was cardioverted by me. Patient understands risk benefits. He states he went into A-fib on Friday at approximately 1600. He has not had anything to eat since last evening. Timeout was taken. Patient received 80 mg of propofol. First attempted cardioversion with 200 J was unsuccessful. Second attempt was successful. There was no complications. Repeat EKG has been ordered. Monitor for now reve als a paced rhythm. He is scheduled to see EP labels molder at [facility] For ablation next month. 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, S/P cardiac pacemaker procedure Instructions: AFib Dc, Cardioversion Dc Prescriptions: No Action hydrocodone-acetaminophen 5-325 mg tablet 1 tab PO BID PRN (Reason: PAIN ) spironolactone 25 mg tablet 25 mg PO DAILY Qty: 90 3RF testosterone 1 % (50 mg/5 gram) gel in packet 1 packet transdermal DAILY tizanidine 4 mg tablet 4 mg PO QHS PRN (Reason: MUSCLE SPASMS ) atorvastatin 40 mg tablet 40 mg PO QHS Qty: 30 11RF Eliquis 5 mg tablet 5 mg PO BID Qty: 60 11RF metoprolol succinate 50 mg tablet extended release 24 hr 50 mg PO BID Qty: 60 11RF potassium chloride 20 mEq tablet,ER particles/crystals 20 meq PO BID Qty: 270 3RF lisinopril 5 mg tablet 5 mg PO QDAY Qty: 90 3RF furosemide 40 mg tablet 80 mg PO BID Qty: 180 3RF Primary Care Provider: Philip Coronado Referrals: Philip Coronado MD [Primary Care Provider] - Activity Restrictions/Additional Instructions: Follow-up with Dr. Enriquez and return for any worsening symptoms Print Language: Palauan Disposition Disposition: Home, Self Care Discharge Date/Time: 07/04/24 14:28
[2024-07-04 12:09] LABS: Anion Gap 11 (5-15); BUN 22 mg/dL (4-19); Calcium,Total 9.8 mg/dL (7.6-11.0); Carbon Dioxide 23.2 mmol/L (21.0-32.0); Chloride 101 mmol/L (98-108); Creatinine, Serum 1.31 mg/dL (0.70-1.20); EST Glomerular Filtration Rate 63 (>60); Estimated Creatinine Clearance 76.16 ml/min (50-250); Glucose 196 mg/dL (70-99); Potassium 4.9 mmol/L (3.3-5.1); Sodium Level 135 mmol/L (133-145)
--- NOTE | 2024-07-04 12:25 | EKG12_ITS ---
Test Reason : HIGH HR Blood Pressure : */* mmHG Vent. Rate : 133 BPM Atrial Rate : * BPM P-R Int : * ms QRS Dur : 86 ms QT Int : 308 ms P-R-T Axes : * 55 -86 degrees QTcB Int : 458 ms Atrial fibrillation with rapid ventricular response with occasional ventricular- paced complexes ST & T wave abnormality, consider inferior ischemia Abnormal ECG Confirmed by MARIEL ROJAS, JEREMY ([id number]), desk editor MANUEL RIVERA ([id number]) on 07/05/2024 8:20:26 AM Referred By: TB/UG Confirmed By: JEREMY FLOYD MD
--- NOTE | 2024-07-04 12:25 | EKG12_ITS ---
Test Reason : Blood Pressure : */* mmHG Vent. Rate : 60 BPM Atrial Rate : 60 BPM P-R Int : 222 ms QRS Dur : 100 ms QT Int : 410 ms P-R-T Axes : * 65 -89 degrees QTcB Int : 410 ms Atrial-paced rhythm with prolonged AV conduction RSR' or QR pattern in V1 suggests right ventricular conduction delay ST & T wave abnormality, consider inferior ischemia Abnormal ECG Confirmed by AMRIEL ROJAS, JEREMY ([id number]), production editor MANUEL RIVERA ([id number]) on 07/05/2024 8:20:38 AM Referred By: Confirmed By: JEREMY FLOYD MD
[2024-07-04] MEDS: Propofol 200 MG/20 ML Vial IV BOLUS (12:37)
[2024-07-04] MEDS: 0.9% Normal Saline (1000mL) 1,000 ML 999 ML IV (13:20)
== END 2024-07-04 14:28 | disposition home or self-care (01) ==
PROVIDERS: Physician Assistant; Emergency Provider Emergency Medicine; PCP Family Medicine; Visit Provider Emergency Medicine
DX: I48.91 Unspecified atrial fibrillation (principal); E11.9 Type 2 diabetes mellitus without complications; I25.10 Atherosclerotic heart disease of native coronary artery without angina pectoris; G47.33 Obstructive sleep apnea (adult) (pediatric); I10 Essential (primary) hypertension; Z95.5 Presence of coronary angioplasty implant and graft; Z79.01 Long term (current) use of anticoagulants; Z95.0 Presence of cardiac pacemaker
CPT/HCPCS: 71046; 80048; 85025; 93005; 99284; A4216

== ENCOUNTER 2024-07-15 08:35 | Emergency (ER) | payer OTHER, SELFPAY ==
[2018-10-26 11:39] VITALS: BMI 38.9
[2024-07-15] VITALS (8 sets, daily range): BP systolic 104–136; BP diastolic 60–93; PULSE 60–160; RESP 16–20; TEMP 36.5–36.6; O2SAT 98–100; BMI 36.1
--- NOTE | 2024-07-15 08:50 | EKG12_ITS ---
Test Reason : PALPS Blood Pressure : */* mmHG Vent. Rate : 139 BPM Atrial Rate : * BPM P-R Int : * ms QRS Dur : 94 ms QT Int : 308 ms P-R-T Axes : * 67 -75 degrees QTcB Int : 468 ms Atrial fibrillation with rapid ventricular response Incomplete right bundle branch block ST & T wave abnormality, consider inferior ischemia Abnormal ECG Confirmed by MARIEL ROJAS, JEREMY ([id number]), assistant production editor FRANCISCA COATS ([id number]) on 07/16/2024 9:33:02 AM Referred By: Confirmed By: JEREMY FLOYD MD
--- NOTE | 2024-07-15 08:54 | EX.ED.DYSGE1 ---
HPI History of Present Illness Chief Complaint: Palpitations Informant: patient Narrative Narrative: Presents recurrent palpitations waking at 3 AM. Lightheaded symptoms and dyspnea. No recent cough. History of premature coronary disease status post CABG 2008. History of sick sinus syndrome pacemaker 2 years ago. History of paroxysmal A-fib 2 years ago he is on metoprolol and Eliquis he did take it this morning. He has been compliant with his medications. He had an ablation this past fall by Dr. Cramer [facility]. He states there is plans for another ablation. He was here couple weeks ago for similar and cardioverted in emergency department. Last meal yesterday evening. Patient intermittent dyspnea with exertion, denies chest tightness with exertion. Denies arm pain. States comes and goes. Reports he had a stress test 2 weeks ago contacted by his cardiology team yesterday discussed results and discuss pending ablation plans. Prior similar symptoms: Yes [facility] Medical History (Updated 07/15/24 @ 10:[address] Santiago Roblero, DO) Obesity Nonsustained paroxysmal ventricular tachycardia PAF (paroxysmal atrial fibrillation) Tachy-bradley syndrome Sick sinus syndrome ALICIA treated with BiPAP Essential hypertension HLD (hyperlipidemia) Atherosclerotic heart disease of [place] coronary artery without angina pectoris Home Medications ?Medication ?Instructions ?Recorded ?Last Taken ?Type hydrocodone-acetaminophen 5-325mg 1 tab PO BID PRN PAIN 09/08/20 01/24/24 History 5mg-325mg testosterone 1 % (50 mg/5 gram) 1 packet transdermal DAILY HORMONES 07/30/23 07/15/24 History transdermal gel packet tizanidine 4 mg tablet 4 mg PO QHS PRN MUSCLE SPASMS 07/30/23 07/14/24 History apixaban 5 mg tablet (Eliquis) 5 mg PO BID BLOOD THINNER #60 tabs 12/05/23 07/15/24 Rx potassium chloride 20 mEq 20 meq PO BID SUPPLEMENT #270 tabs 01/02/24 07/15/24 Rx tablet,extended release(part/cryst) furosemide 40 mg tablet 80 mg (2 x 40 mg) PO BID EDEMA 03/18/24 07/14/24 Rx #180 tabs spironolactone 25 mg tablet 25 mg PO DAILY edema #90 tabs 06/02/24 07/14/24 Rx atorvastatin 40 mg tablet 40 mg PO QHS CHOLESTEROL #90 tabs 07/07/24 07/14/24 Rx clopidogrel 75 mg tablet 75 mg PO DAILY 07/15/24 Unknown History metoprolol succinate 100 mg 100 mg PO BID #180 tabs 07/15/24 Unknown Rx tablet,extended release 24 hr testosterone cypionate 200 mg/mL 100 mg IM 07/15/24 Unknown History intramuscular oil Allergy/AdvReac Type Severity Reaction Status Date / Time chlorhexidine (From Allergy Itching,erickson Verified 07/15/24 09:27 ChloraPrep Clear) h isopropyl alcohol (From Allergy Itching,erickson Verified 07/15/24 09:27 ChloraPrep Clear) h empagliflozin (From AdvReac Severe Genital Verified 07/15/24 09:27 Jardiance) yeast infection Family History Father CAD (coronary artery disease) Diabetes Cancer Mother Diabetes Brother brain aneurysm rupture Surgical History (Updated 07/15/24 @ 11:03 by Gregory Coon CONTROL SYSTEM MANAGER, CONTROL SYSTEM MANAGER-C) History of cardioversion (05/10/24) S/P ablation of atrial fibrillation S/P cardiac pacemaker procedure History of coronary artery stent placement (08/19/23) H/O coronary artery bypass surgery (12/02/08) History of arthroscopy of left shoulder (03/2017) History of left heart catheterization (LHC) (08/19/23) History of tonsillectomy Social History household members: spouse housing: house current occupational status: employed 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 Smoking Status: Never smoker alcohol intake: current alcohol intake frequency: a few times a month substance use type: does not use caffeine: Yes Type: carbonated beverages Number of servings: 5 and coffee Number of servings: 1 what type of physical activity do you participate in: none do you feel safe at home: Yes ROS ROS ED Constitutional Constitutional ED: Denies chills, fever(s) or sweats ENT ENT ED: Denies sore throat Cardiovascular Cardiovascular: Reports palpitations and racing heartbeat; Denies chest pain or leg edema Respiratory/Chest Respiratory/Chest: Reports dyspnea; Denies cough or dyspnea on exertion Gastrointestinal Gastrointestinal: Denies abdominal pain, diarrhea, nausea or vomiting Genitourinary Genitourinary ED: Denies dysuria, hematuria or urinary frequency Musculoskeletal Musculoskeletal: Denies back pain, extremity pain or neck pain Integumentary Denies rash or wounds Neurologic Neurologic: Denies headache(s), paresthesias or weakness EXAM Physical Exam Const Vital Signs: 07/15/24 08:36 07/15/24 08:36 07/15/24 08:45 Temperature 98 F Temperature Source Temporal Pulse Rate 143 H 130 H Pulse Rate [1 (Initial Baseline)] Pulse Rate [2] Pulse Rate [4] Respiratory Rate 16 Respiratory Rate [1 (Initial Baseline)] Respiratory Rate [2] Respiratory Rate [4] Respiratory Effort Normal Blood Pressure 127/84 H Blood Pressure [1 (Initial Baseline)] Blood Pressure [2] Blood Pressure Mean 98 Baseline BP Pulse Ox 100 Oxygen Delivery Method Room Air Oxygen Delivery Method [1 (Initial Baseline)] Oxygen Delivery Method [2] Oxygen Delivery Method [4] Oxygen Flow Rate (L/min) Oxygen Flow Rate (L/min) [1 (Initial Baseline)] Oxygen Flow Rate (L/min) [2] Oxygen Flow Rate (L/min) [4] EtCo2 (Normal 35-45 , high quality CPR 10-20 & ROSC>/=40mmHg EtCo2 (Normal 35-45 , high quality CPR 10-20 & ROSC>/=40mmHg [1 (Initial Baseline)] EtCo2 (Normal 35-45 , high quality CPR 10-20 & ROSC>/=40mmHg [2] EtCo2 (Normal 35-45 , high quality CPR 10-20 & ROSC>/=40mmHg [4] 07/15/24 08:50 07/15/24 08:50 07/15/24 09:08 Temperature 97.9 F Temperature Source Pulse Rate 132 H Pulse Rate [1 (Initial Baseline)] 133 H Pulse Rate [2] 160 H Pulse Rate [4] 60 Respiratory Rate 19 H Respiratory Rate [1 (Initial Baseline)] 16 Respiratory Rate [2] 16 Respiratory Rate [4] 19 H Respiratory Effort Blood Pressure 130/74 H Blood Pressure [1 (Initial Baseline)] 136/93 H Blood Pressure [2] 129/66 H Blood Pressure Mean Baseline BP 130/74 Pulse Ox 98 Oxygen Delivery Method Nasal Cannula Oxygen Delivery Method [1 (Initial Baseline)] Nasal Cannula Oxygen Delivery Method [2] Nasal Cannula Oxygen Delivery Method [4] Nasal Cannula Oxygen Flow Rate (L/min) 2 Oxygen Flow Rate (L/min) [1 (Initial Baseline)] 4 Oxygen Flow Rate (L/min) [2] 4 Oxygen Flow Rate (L/min) [4] 4 EtCo2 (Normal 35-45 , high quality CPR 10-20 & ROSC>/=40mmHg 29 31 EtCo2 (Normal 35-45 , high quality CPR 10-20 & ROSC>/=40mmHg [1 (Initial Baseline)] 33 EtCo2 (Normal 35-45 , high quality CPR 10-20 & ROSC>/=40mmHg [2] 35 EtCo2 (Normal 35-45 , high quality CPR 10-20 & ROSC>/=40mmHg [4] 36 07/15/24 09:15 07/15/24 09:20 07/15/24 09:25 Temperature Temperature Source Pulse Rate 60 60 60 Pulse Rate [1 (Initial Baseline)] Pulse Rate [2] Pulse Rate [4] Respiratory Rate 20 H 16 18 Respiratory Rate [1 (Initial Baseline)] Respiratory Rate [2] Respiratory Rate [4] Respiratory Effort Blood Pressure 110/75 104/60 Blood Pressure [1 (Initial Baseline)] Blood Pressure [2] Blood Pressure Mean Baseline BP Pulse Ox 100 100 99 Oxygen Delivery Method Nasal Cannula Nasal Cannula Room Air Oxygen Delivery Method [1 (Initial Baseline)] Oxygen Delivery Method [2] Oxygen Delivery Method [4] Oxygen Flow Rate (L/min) 4 2 Oxygen Flow Rate (L/min) [1 (Initial Baseline)] Oxygen Flow Rate (L/min) [2] Oxygen Flow Rate (L/min) [4] EtCo2 (Normal 35-45 , high quality CPR 10-20 & ROSC>/=40mmHg 36 100 39 EtCo2 (Normal 35-45 , high quality CPR 10-20 & ROSC>/=40mmHg [1 (Initial Baseline)] EtCo2 (Normal 35-45 , high quality CPR 10-20 & ROSC>/=40mmHg [2] EtCo2 (Normal 35-45 , high quality CPR 10-20 & ROSC>/=40mmHg [4] 07/15/24 11:06 07/15/24 11:07 Temperature 97.7 F L Temperature Source Pulse Rate 60 60 Pulse Rate [1 (Initial Baseline)] Pulse Rate [2] Pulse Rate [4] Respiratory Rate 16 16 Respiratory Rate [1 (Initial Baseline)] Respiratory Rate [2] Respiratory Rate [4] Respiratory Effort Blood Pressure 117/68 117/68 Blood Pressure [1 (Initial Baseline)] Blood Pressure [2] Blood Pressure Mean 84 84 Baseline BP Pulse Ox 100 100 Oxygen Delivery Method Room Air Oxygen Delivery Method [1 (Initial Baseline)] Oxygen Delivery Method [2] Oxygen Delivery Method [4] Oxygen Flow Rate (L/min) Oxygen Flow Rate (L/min) [1 (Initial Baseline)] Oxygen Flow Rate (L/min) [2] Oxygen Flow Rate (L/min) [4] EtCo2 (Normal 35-45 , high quality CPR 10-20 & ROSC>/=40mmHg EtCo2 (Normal 35-45 , high quality CPR 10-20 & ROSC>/=40mmHg [1 (Initial Baseline)] EtCo2 (Normal 35-45 , high quality CPR 10-20 & ROSC>/=40mmHg [2] EtCo2 (Normal 35-45 , high quality CPR 10-20 & ROSC>/=40mmHg [4] Positive well nourished and well developed General Appearance ED: well developed and NAD HEENT Reports moist mucous membranes normocephalic and atraumatic Eyes General Eye ED: Yes normal appearance of both eyes Neck full ROM Chest Wall Chest: Negative for tenderness Resp normal respiratory effort and normal air movement Effort and Inspection: symmetric chest movement; Negative for respiratory distress Cardio no murmurs Rate: tachycardic Rhythm: abnormal rhythm Peripheral Pulses: pulses 2+ throughout GI normal to inspection, nondistended, normoactive bowel sounds and non-tender Palpation: Negative for guarding or rebound tenderness present Extremity normal to inspection General Extremety ED: Negative for edema or tenderness General Extremity: Negative for edema Neuro oriented x3 and no sensory deficits noted Sensorium / Orientation: awake and alert Skin no rashes or lesions noted and no wounds MDM MDM MDM Narrative Medical decision making narrative: Interventions / MDM: Differential diagnosis: A-fib with RVR, history of coronary disease, history of paroxysmal A-fib, chronic anticoagulation Diagnosis considered but do not suspect: N/A My EKG interpretation: A-fib rate 139, ST depression 1 mm in inferior leads with T wave inversion. Post cardioversion EKG at 0918: Paced rhythm rate of 60, Naus for ST depression in inferior leads with T wave inversions inferior leads. Imaging independently reviewed and interpreted by myself: 1 view chest x-ray: Obtained post cardioversion, AV pacemaker wires in place. No infiltrate no pleural effusion noted. External documents reviewed: Heart cath August 2023: Circumflex disease 2 areas 90% and 70%. Stress test from July 01, 2024: Abnormal concerning ischemic changes inferior lateral. Test considered but not ordered:N/A ED course: Patient's A-fib RVR ST depressions likely demand ischemia. Last meal yesterday been compliant with medication Eliquis metoprolol taken this morning. Discussed cardioversion for which she agrees. Preparations being made. Consent. Risks and benefits discussed. 0908: Written consent obtained. Risk and benefits discussed. Patient placed on a potline monitor oxygen capnography fluids at KVO. A-fib on the monitor blood pressure stable. ASA 3 with Mallampati 3. Total sedation propofol 80 mg, sedation achieved, patient cardioverted 200 J synchronized with AP pads. Sinus rhythm on the monitor. Blood pressure stable. Total sedation time 5 minutes patient tolerated procedure well. Repeat EKG paced rhythm rate of [address] depression with T wave inversions inferior leads. 0928: Labs electrolytes normal creatinine 1.42. His range and creatinine is 1.1-1.5. Last creatinine was 1.3. Potassium 4.9 sodium 136. Hemoglobin 15. 0932: Patient awake feeling better back to normal. Maintaining sinus rhythm on the monitor. Blood pressure 104/60. Will discuss with cardiology service plan of care. 1030: Discussed with Dr. Enriquez, he knows the patient. With recurrent symptoms he would like to increase his metoprolol to 100 mg twice a day, we will stop the lisinopril as his EF is improved. Discussed the abnormalities of his cath from last year and stress test. He reviewed records he states he did have a PCI angioplasty at that time. He is not having angina symptoms right now. He states he will review the studies he will contact the patient and addressed this in the office. This was relayed to the patient. Reports with cardioversion, he will need anticoagulation for at least another month before potential recath. He will start his 100 mg of metoprolol this evening. Return precautions. All questions were answered. Re-evaluation: stable Disposition discussed with patient/family/significant other: Patient Case discussed with consulting clinician: Cardiology, Dr. Enriquez This note was generated with [employer] software. It may contain incorrect words, spelling, and punctuation that were not noted in checking the note before signing. Lab Data Attestation: I reviewed the patient's lab results. Labs: Laboratory Results - last 24 hr 07/15/24 08:50 WBC 7.9 RBC 4.89 Hgb 15.0 Hct 44.5 MCV 91.0 MCH 30.7 MCHC 33.7 RDW Std Deviation 43.4 RDW Coeff of Ashwini 13.1 Plt Count 178 MPV 10.5 Immature Gran % (Auto) 0.500 Neut % (Auto) 67.2 Lymph % (Auto) 17.0 L [place] % (Auto) 13.6 H Eos % (Auto) 0.9 Baso % (Auto) 0.8 Absolute Neuts (auto) 5.3 Absolute Lymphs (auto) 1.35 Nucleated RBC % 0 Sodium 136 Potassium 4.9 Chloride 101 Carbon Dioxide 22.8 Anion Gap 12 BUN 33 H Creatinine 1.42 H Estim Creat Clear Calc 69.63 Est GFR (MDRD) Non-Af 57 L BUN/Creatinine Ratio 23.0 H Glucose 173 H Calcium 10.1 Radiography Diagnostic Testing: Clinical Impression(s) from Imaging Studies Chest X-Ray 07/15/24 09:33 IMPRESSION: Borderline cardiomegaly. The lungs are clear. Reading Location: [place] [address] Discharge Plan Triage Chief Complaint: Palpitations Other Complaint: Chest Pain ED Provider: Santiago Roblero Dx/Rx/DC Orders Clinical Impression: Atrial fibrillation with RVR, Chronic anticoagulation, History of cardioversion, History of CAD (coronary artery disease), CKD (chronic kidney disease) Instructions: Cardioversion Dc, ED AFIB Prescriptions: No Action hydrocodone-acetaminophen 5-325 mg tablet 1 tab PO BID PRN (Reason: PAIN ) spironolactone 25 mg tablet 25 mg PO DAILY Qty: 90 3RF testosterone 1 % (50 mg/5 gram) gel in packet 1 packet transdermal DAILY tizanidine 4 mg tablet 4 mg PO QHS PRN (Reason: MUSCLE SPASMS ) clopidogrel 75 mg tablet 75 mg PO DAILY testosterone cypionate 200 mg/mL oil 100 mg IM Eliquis 5 mg tablet 5 mg PO BID Qty: 60 11RF potassium chloride 20 mEq tablet,ER particles/crystals 20 meq PO BID Qty: 270 3RF furosemide 40 mg tablet 80 mg PO BID Qty: 180 3RF atorvastatin 40 mg tablet 40 mg PO QHS Qty: 90 3RF metoprolol succinate 100 mg tablet extended release 24 hr 100 mg PO BID Qty: 180 3RF Primary Care Provider: Philip Coronado Referrals: Mina Enriquez MD [Med Staff - Active Staff] - 5-7 Days Philip Coronado MD [Primary Care Provider] - Activity Restrictions/Additional Instructions: You were cardioverted 200 J synchronized back to sinus rhythm. Continue your Eliquis. Discussed with Dr. Enriquez. Increase your metoprolol 100 mg twice a day next dose this evening. Stop your lisinopril 5 mg at this time. Follow-up in the office. If recurrent symptoms, return to the ED for reevaluation. Stable creatinine at 1.4. Print Language: Ukrainian Disposition Disposition: Home, Self Care Discharge Date/Time: 07/15/24 11:08
[2024-07-15 09:02] LABS: Absolute Lymphocyte Count 1.35 X10^3/uL (0.83-4.51); Absolute Neutrophil Count 5.3 X10^3/uL (2.0-7.7); Basophil# 0.06 X10^3/uL; Basophil% 0.8 % (0-1); Eosinophil# 0.07 X10^3/uL; Eosinophils% 0.9 % (0-5); Hematocrit 44.5 % (40-54); Lymphocyte # 1.35 X10^3/ul (0.83-4.51); Mean Corp Hgb Conc 33.7 g/dL (32-36); Mean Corpuscular Hgb 30.7 pg (27.0-32.0); Mean Platelet Vol. 10.5 fl (6.2-12.0); Monocyte# 1.08 X10^3/uL; Monocyte% 13.6 % (0-10); NRBC Flagged by Analyzer 0 % (0-5); Neutrophil # 5.33 X10^3/uL (2.7-7.7); Neutrophil % 67.2 % (47-70); Platelet Count 178 K/mm3 (150-450); RBC Distribution Width CV 13.1 % (11.6-14.6); RBC Distribution Width SD 43.4 fl (35.1-43.9); Red Blood Count 4.89 M/mm3 (4.6-6.2); White Blood Count 7.9 K/mm3 (4.4-11.0)
[2024-07-15] MEDS: 0.9% Normal Saline (1000mL) 1,000 ML 15 ML IV (09:09)
[2024-07-15] MEDS: Propofol 200 MG/20 ML Vial IV BOLUS (09:09)
--- NOTE | 2024-07-15 09:14 | EKG12_ITS ---
Test Reason : POST CARDIOVERSION Blood Pressure : */* mmHG Vent. Rate : 60 BPM Atrial Rate : 60 BPM P-R Int : 222 ms QRS Dur : 102 ms QT Int : 406 ms P-R-T Axes : * 71 259 degrees QTcB Int : 406 ms Atrial-paced rhythm with prolonged AV conduction Incomplete right bundle branch block ST & T wave abnormality, consider inferior ischemia Abnormal ECG Confirmed by MARIEL ROJAS, JEREMY ([id number]), fashion editor FRANCISCA COATS ([id number]) on 07/16/2024 9:33:14 AM Referred By: Confirmed By: JEREMY FLOYD MD
[2024-07-15 09:26] LABS: Anion Gap 12 (5-15); BUN 33 mg/dL (4-19); Calcium,Total 10.1 mg/dL (7.6-11.0); Carbon Dioxide 22.8 mmol/L (21.0-32.0); Chloride 101 mmol/L (98-108); Creatinine, Serum 1.42 mg/dL (0.70-1.20); EST Glomerular Filtration Rate 57 (>60); Estimated Creatinine Clearance 69.63 ml/min (50-250); Glucose 173 mg/dL (70-99); Potassium 4.9 mmol/L (3.3-5.1); Sodium Level 136 mmol/L (133-145)
--- NOTE | 2024-07-15 09:33 | RAD_ITS ---
PROCEDURE: CHEST 1 VIEW (PORTABLE) 07/15/2024 REASON FOR EXAM: PALPITATIONS TECHNIQUE: Frontal view of the chest. COMPARISON: Comparison is made with prior study dated July 04, 2024. FINDINGS: Hardware: EKG electrodes are seen. A left-sided unipolar pacemaker is present. Heart: Prior CABG. Heart size is upper limits of normal. Lungs: The lungs are clear. Bones: Degenerative changes are identified within the thoracic spine. Other: RAD/Chest 1 View (Portable) IMPRESSION: Borderline cardiomegaly. The lungs are clear. Reading Location: [facility]
== END 2024-07-15 11:08 | disposition home or self-care (01) ==
PROVIDERS: Emergency Provider Emergency Medicine; PCP Family Medicine; Visit Provider Emergency Medicine
DX: I48.91 Unspecified atrial fibrillation (principal); N18.9 Chronic kidney disease, unspecified; I25.10 Atherosclerotic heart disease of native coronary artery without angina pectoris; E78.5 Hyperlipidemia, unspecified; I12.9 Hypertensive chronic kidney disease with stage 1 through stage 4 chronic kidney disease, or unspecified chronic kidney disease; G47.33 Obstructive sleep apnea (adult) (pediatric); Z79.01 Long term (current) use of anticoagulants; Z79.899 Other long term (current) drug therapy; Z95.1 Presence of aortocoronary bypass graft
CPT/HCPCS: 71045; 80048; 85025; 92960; 93005; 99283; A4216

== ENCOUNTER 2024-08-16 06:59 | Day surgery (SDC) | payer OTHER, SELFPAY ==
[2018-10-26 11:39] VITALS: BMI 38.9
[2024-08-11 13:44] LABS: Absolute Lymphocyte Count 1.63 X10^3/uL (0.83-4.51); Absolute Neutrophil Count 4.8 X10^3/uL (2.0-7.7); Basophil# 0.07 X10^3/uL; Basophil% 0.9 % (0-1); Eosinophil# 0.19 X10^3/uL; Eosinophils% 2.5 % (0-5); Hematocrit 46.2 % (40-54); Hemoglobin 15.7 g/dL (13.0-16.5); Lymphocyte # 1.63 X10^3/ul (0.83-4.51); Lymphocyte % 21.2 % (19-41); Mean Corpuscular Hgb 31.5 pg (27.0-32.0); Mean Corpuscular Volume 92.8 fL (80-94); Mean Platelet Vol. 10.7 fl (6.2-12.0); Monocyte# 0.96 X10^3/uL; Monocyte% 12.5 % (0-10); NRBC Flagged by Analyzer 0 % (0-5); Neutrophil % 62.4 % (47-70); Platelet Count 179 K/mm3 (150-450); RBC Distribution Width CV 13.2 % (11.6-14.6); RBC Distribution Width SD 44.7 fl (35.1-43.9); Red Blood Count 4.98 M/mm3 (4.6-6.2); White Blood Count 7.7 K/mm3 (4.4-11.0)
[2024-08-11 14:52] LABS: Hemoglobin A1c 8.3 % (<=5.6)
[2024-08-11 16:01] LABS: Anion Gap 13 (5-15); BUN 22 mg/dL (4-19); Chloride 100 mmol/L (98-108); Creatinine, Serum 1.31 mg/dL (0.70-1.20); EST Glomerular Filtration Rate 63 (>60); Glucose 180 mg/dL (70-99); Potassium 4.6 mmol/L (3.3-5.1); Sodium Level 138 mmol/L (133-145)
[2024-08-13 07:17] VITALS: BMI 36.1
--- NOTE | 2024-08-16 09:04 | CL.D_ITS ---
Patient Name: BHARAT HOLLY Study Date: 08/16/2024 Performing: Mina Enriquez MD Ht: 69 inches 175.26 cm : 1965 Wt: 245 lbs 111.13 kg Age: 58 Gender: male BSA: 2.25 PROCEDURE(S) PERFORMED [id number])LHC/COR/CABG CLINICAL PROFILE AND INDICATIONS Indications: Stable Known CAD Heart Failure: None Stress/Imaging Date: 07/01/24Stress Test with SPECT MPI: Positive Intermediate Risk CONCLUSIONS The SHEIKH to the LAD was noted to be patent a few months ago and the stress test demonstrated lateral ischemia. The saphenous vein graft to the obtuse marginal and PDA are noted to be patent with the previously placed stent noted to be patent. The suspicion is that the ischemia is from the first obtuse marginal branch with moderate diffuse disease in the small vessel which cannot be revascularized. RECOMMENDATIONS Medical therapy will be continued. An EP eval followed. DESCRIPTION OF PROCEDURE The patient arrived to the procedure lab. The risks and benefits of the procedure as well as a full description of our services here and current unavailability of surgical backup were fully explained to the patient and/or their significant other prior to the catheterization. The Timeout was completed, verifying the correct patient and procedure. The patient's procedural site was prepped and draped in the usual fashion. Local anesthetic was given subcutaneously to right radial region with Lidocaine 2%. Local anesthetic was given subcutaneously to right groin region with Lidocaine 2%. Using a modified Seldinger technique, arterial access was obtained via the right radial artery, a 6Fr sheath was inserted. Left Coronary Artery selective angiography was performed in multiple views using a 5 Fr. 4.0 Rea catheter. Saphenous Vein graft to the OM 1 selective angiography was performed in multiple views using a 6 Fr. 4.0 Rea catheter.The arterial sheath was pulled and a TR Band was applied for hemostasis. 12cc of air CORONARY ANGIOGRAPHY DOMINANCE: Left Dominant LEFT HEART ASSESSMENT Left Ventricular Ejection Fraction: by Echo 50 % LEFT MAIN: Angiographically normal LEFT ANTERIOR DESCENDING ARTERY: MID LAD: 80 % Stenosis CIRCUMFLEX ARTERY: Dominant vessel giving of a first prominent obtuse marginal branch which bifurcates which is moderately diffusely diseased. The second obtuse marginal branch has been bypassed and has competitive flow in the third obtuse marginal branch/PDA is noted to be patent continuing from the AV groove branch. GRAFTS: Sequential graft to the To the second obtuse marginal branch as well as the PDA is noted to be patent. The previously placed stents in the proximal to mid and mid of the saphenous vein graft is noted to be patent. COMPLICATIONS No Complications PROCEDURE MEDICATIONS Fentanyl 50 mcg IV Versed 1 mg IV Versed 1 mg IV Versed 1 mg IV Fentanyl 25 mcg IV Oxygen: 2 L/min via nasal cannula Aspirin (325mg) 1 Tabs PO @ 08/16/2024 07:45:55 Heparin given IA 08/16/2024 08:42:16 Verapamil 2.5mg, Ntg 100mcgs, 3000 units of Heparin given IA 08/16/2024 08:42:16 SUMMARY OF HEMODYNAMIC DATA Time AIR REST ECG 07:35:31 AO 123/80 (100) SA 08:45:40 Signed By Mina Enriquez MD On 08/16/2024 09:03:45 Mina Enriquez MD
== END 2024-08-16 10:30 | disposition home or self-care (01) ==
PROVIDERS: Nurse Practitioner Family; PCP Family Medicine; Referring Provider Internal Medicine Cardiovascular Disease; Visit Provider Internal Medicine Cardiovascular Disease
DX: I25.10 Atherosclerotic heart disease of native coronary artery without angina pectoris (principal); I48.0 Paroxysmal atrial fibrillation; I10 Essential (primary) hypertension; G47.33 Obstructive sleep apnea (adult) (pediatric); Z79.51 Long term (current) use of inhaled steroids; Z79.01 Long term (current) use of anticoagulants; Z79.899 Other long term (current) drug therapy; Z95.5 Presence of coronary angioplasty implant and graft; Z95.1 Presence of aortocoronary bypass graft
CPT/HCPCS: 36415; 80048; 83036; 85025; 93455; 99152; 99153; C1894; Q9967; C1769

== ENCOUNTER 2024-09-20 13:13 | Emergency (ER) | payer OTHER, SELFPAY ==
[2018-10-26 11:39] VITALS: BMI 38.9
[2024-09-20] VITALS (12 sets, daily range): BP systolic 119–172; BP diastolic 69–123; PULSE 60–175; RESP 16–28; TEMP 36.8; O2SAT 38–100; BMI 37.9
--- NOTE | 2024-09-20 13:27 | RAD_ITS ---
PROCEDURE: CHEST PA AND LATERAL 09/20/2024 REASON FOR EXAM: CHEST PAIN TECHNIQUE: Frontal and lateral views of the chest. COMPARISON: July 15, 2024 FINDINGS: Hardware: Implanted dual-chamber pacer. Sternal wires. EKG lead wires. Heart: Normal size. Mediastinum: Unremarkable. Lungs: Clear. Bones: No aggressive process. RAD/Chest PA and Lateral IMPRESSION: No acute process detected. Reading Location: [facility]
--- NOTE | 2024-09-20 13:27 | EKG12_ITS ---
Test Reason : TACHY Blood Pressure : */* mmHG Vent. Rate : 169 BPM Atrial Rate : * BPM P-R Int : * ms QRS Dur : 90 ms QT Int : 288 ms P-R-T Axes : * 66 261 degrees QTcB Int : 482 ms Critical Test Result: High HR Supraventricular tachycardia Marked ST abnormality, possible inferior subendocardial injury Abnormal ECG Confirmed by Vinny Fonseca ([id number]), newspaper managing editor FRANCISCA COATS ([id number]) on 09/21/2024 11:12:36 AM Referred By: DANNY Confirmed By: Vinny Fonseca
[2024-09-20] MEDS: 0.9% Normal Saline (1000mL) 1,000 ML 999 ML IV (13:29)
[2024-09-20] MEDS: Adenosine 6 MG/2 ML Syringe IV (13:29)
--- NOTE | 2024-09-20 13:30 | EKG12_ITS ---
Test Reason : POST CONVERT Blood Pressure : */* mmHG Vent. Rate : 68 BPM Atrial Rate : 68 BPM P-R Int : 232 ms QRS Dur : 108 ms QT Int : 412 ms P-R-T Axes : * 52 241 degrees QTcB Int : 438 ms DEMAND Atrial-paced rhythm with prolonged AV conduction RSR' or QR pattern in V1 suggests right ventricular conduction delay Marked ST abnormality, possible inferior subendocardial injury Abnormal ECG Confirmed by Vinny Fonseca ([id number]), slot editor FRANCISCA COATS ([id number]) on 09/21/2024 11:12:57 AM Referred By: Confirmed By: Vinny Fonseca
[2024-09-20] MEDS: Adenosine 6 MG/2 ML Syringe 12 MG IV (13:34)
[2024-09-20 13:37] LABS: Absolute Lymphocyte Count 1.78 X10^3/uL (0.83-4.51); Absolute Neutrophil Count 6.5 X10^3/uL (2.0-7.7); Basophil# 0.11 X10^3/uL; Basophil% 1.1 % (0-1); Hematocrit 51.5 % (40-54); Hemoglobin 17.2 g/dL (13.0-16.5); Lymphocyte # 1.78 X10^3/ul (0.83-4.51); Lymphocyte % 17.7 % (19-41); Mean Corp Hgb Conc 33.4 g/dL (32-36); Mean Corpuscular Hgb 31.3 pg (27.0-32.0); Mean Corpuscular Volume 93.8 fL (80-94); Mean Platelet Vol. 11.2 fl (6.2-12.0); Monocyte# 1.28 X10^3/uL; Monocyte% 12.7 % (0-10); NRBC Flagged by Analyzer 0 % (0-5); Neutrophil # 6.54 X10^3/uL (2.7-7.7); Neutrophil % 64.9 % (47-70); Platelet Count 165 K/mm3 (150-450); RBC Distribution Width CV 14.1 % (11.6-14.6); RBC Distribution Width SD 48.2 fl (35.1-43.9); Red Blood Count 5.49 M/mm3 (4.6-6.2); White Blood Count 10.1 K/mm3 (4.4-11.0)
[2024-09-20 13:46] LABS: International Normalized Ratio 1.3; Prothrombin Time (Protime)PT. 16.4 SECONDS (11.7-14.9)
[2024-09-20] MEDS: Propofol 200 MG/20 ML Vial IV BOLUS (13:46)
[2024-09-20 13:47] LABS: Partial Thromboplast Time 30.7 Seconds (24.1-36.2)
[2024-09-20 13:56] LABS: D-Dimer Quantitative (DVT/PE) 0.27 FEU/ug/m (0.27-0.49)
[2024-09-20 14:11] LABS: Anion Gap 14 (5-15); BUN 15 mg/dL (4-19); BUN/Creat Ratio 10.7 RATIO (10-20); Calcium,Total 10.3 mg/dL (7.6-11.0); Carbon Dioxide 21.9 mmol/L (21.0-32.0); Chloride 103 mmol/L (98-108); Creatinine, Serum 1.36 mg/dL (0.70-1.20); EST Glomerular Filtration Rate 60 (>60); Estimated Creatinine Clearance 74.55 ml/min (50-250); Glucose 194 mg/dL (70-99); Potassium 4.7 mmol/L (3.3-5.1); Pro- Brain NATRIURETIC PEPTIDE 1187 pg/mL (<=900); Sodium Level 139 mmol/L (133-145); Troponin T High Sensitivity 27 ng/L (<=22)
--- NOTE | 2024-09-20 14:32 | EDS_ITS ---
HPI History of Present Illness Chief Complaint: Chest Pain Narrative Narrative: Chief complaint and HPI: Tachycardia and chest pain. History taken by patient, , and medical record. Patient is a 58-year-old male with past medical history of proximal atrial fibrillation, tachybradycardia syndrome, ALICIA on BiPAP, HTN, HLD, CAD status post CABG in 2008 presents for evaluation of tachycardia and palpitations. states that patient is on a wait list to obtain an ablation. He has been on the wait list since May. He follows with Dr. Enriquez. Patient often goes into atrial fibrillation RVR in which he needs cardioversion. Patient states his palpitations developed this morning with associated chest pain and shortness of breath. He has not missed any of his metoprolol or Eliquis. Associated symptom is nausea. Denies any fever, chills, abdominal pain, bilateral lower extremity pain or swelling. Review of systems: See HPI Medications: As listed on the chart Allergies: As listed on the chart PFSH: Per chart Vital signs: As listed on the chart. Reviewed. Physical exam: Gen: A&O x3, unwell appearing Head: Normocephalic, atraumatic Eyes: No sclera icterus, conjunctiva clear, PERRL ENT: Moist mucous membranes Neck: Trachea midline, No JVD CV: Tachycardic, regular rhythm, no murmurs, no peripheral edema Resp: Lungs CTA BL, no w/r/c, tachypneic GI: Abd soft, non-distended, non-tender, no r/r/g Musc: Full ROM, no deformity Skin: Warm, diaphoretic Neuro: Alert, oriented, grossly intact, sensation intact Psych: Cooperative, appropriate mood and affect [facility] Medical History (Updated 09/20/24 @ 15:[address] Ariel Bernard, DO) Obesity Nonsustained paroxysmal ventricular tachycardia PAF (paroxysmal atrial fibrillation) Tachy-bradley syndrome Sick sinus syndrome Essential hypertension HLD (hyperlipidemia) Atherosclerotic heart disease of [place] coronary artery without angina pectoris Home Medications ?Medication ?Instructions ?Recorded ?Last Taken ?Type tizanidine 4 mg tablet 4 mg PO QHS PRN MUSCLE SPASM S 07/30/23 09/19/24 History potassium chloride 20 mEq 20 meq PO BID SUPPLEMENT #2 70 tabs 01/02/24 09/20/24 Rx tablet,extended release(part/cryst) furosemide 40 mg tablet 80 mg (2 x 40 mg) PO BID VARINDER MA 03/18/24 09/20/24 Rx #180 tabs spironolactone 25 mg tablet 25 mg PO DAILY edema #90 t abs 06/02/24 09/20/24 Rx atorvastatin 40 mg tablet 40 mg PO QHS CHOLESTEROL #9 0 tabs 07/07/24 09/19/24 Rx testosterone cypionate 200 mg/mL 100 mg IM Q14D 09/14/24 History intramuscular oil metoprolol succinate 100 mg 100 mg PO BID #180 tabs 09/20/24 Rx tablet,extended release 24 hr albuterol sulfate 90 mcg/actuation 2 puff inhalation Q 4 PRN wheezing 07/21/24 Unknown History aerosol inhaler clopidogrel 75 mg tablet 75 mg PO DAILY #30 TABLETS 0 07/23/24 09/20/24 Rx apixaban 5 mg tablet (Eliquis) 5 mg PO BID BLOOD THINN ER 08/16/24 09/20/24 History lisinopril 5 mg tablet 5 mg PO DAILY 09/20/2409/20 History Allergy/AdvReac Type Severity Reaction Status Date / Time chlorhexidine (From Allergy Itching,erickson Verified 09/20/24 13:16
--- NOTE | 2024-09-20 14:32 | ED.VIS.CHEST ---
HPI History of Present Illness Chief Complaint: Chest Pain Narrative Narrative: Chief complaint and HPI: Tachycardia and chest pain. History taken by patient, , and medical record. Patient is a 58-year-old male with past medical history of proximal atrial fibrillation, tachybradycardia syndrome, ALICIA on BiPAP, HTN, HLD, CAD status post CABG in 2008 presents for evaluation of tachycardia and palpitations. states that patient is on a wait list to obtain an ablation. He has been on the wait list since May. He follows with Dr. Enriquez. Patient often goes into atrial fibrillation RVR in which he needs cardioversion. Patient states his palpitations developed this morning with associated chest pain and shortness of breath. He has not missed any of his metoprolol or Eliquis. Associated symptom is nausea. Denies any fever, chills, abdominal pain, bilateral lower extremity pain or swelling. Review of systems: See HPI Medications: As listed on the chart Allergies: As listed on the chart PFSH: Per chart Vital signs: As listed on the chart. Reviewed. Physical exam: Gen: A&O x3, unwell appearing Head: Normocephalic, atraumatic Eyes: No sclera icterus, conjunctiva clear, PERRL ENT: Moist mucous membranes Neck: Trachea midline, No JVD CV: Tachycardic, regular rhythm, no murmurs, no peripheral edema Resp: Lungs CTA BL, no w/r/c, tachypneic GI: Abd soft, non-distended, non-tender, no r/r/g Musc: Full ROM, no deformity Skin: Warm, diaphoretic Neuro: Alert, oriented, grossly intact, sensation intact Psych: Cooperative, appropriate mood and affect [facility] Medical History (Updated 09/20/24 @ 15:[address] Ariel Bernard, DO) Obesity Nonsustained paroxysmal ventricular tachycardia PAF (paroxysmal atrial fibrillation) Tachy-bradley syndrome Sick sinus syndrome Essential hypertension HLD (hyperlipidemia) Atherosclerotic heart disease of [place] coronary artery without angina pectoris Home Medications ?Medication ?Instructions ?Recorded ?Last Taken ?Type tizanidine 4 mg tablet 4 mg PO QHS PRN MUSCLE SPASMS 07/30/23 09/19/24 History potassium chloride 20 mEq 20 meq PO BID SUPPLEMENT #270 tabs 01/02/24 09/20/24 Rx tablet,extended release(part/cryst) furosemide 40 mg tablet 80 mg (2 x 40 mg) PO BID EDEMA 03/18/24 09/20/24 Rx #180 tabs spironolactone 25 mg tablet 25 mg PO DAILY edema #90 tabs 06/02/24 09/20/24 Rx atorvastatin 40 mg tablet 40 mg PO QHS CHOLESTEROL #90 tabs 07/07/24 09/19/24 Rx testosterone cypionate 200 mg/mL 100 mg IM Q14D 07/15/24 09/14/24 History intramuscular oil metoprolol succinate 100 mg 100 mg PO BID #180 tabs 07/20/24 09/20/24 Rx tablet,extended release 24 hr albuterol sulfate 90 mcg/actuation 2 puff inhalation Q4 PRN wheezing 07/21/24 Unknown History aerosol inhaler clopidogrel 75 mg tablet 75 mg PO DAILY #30 TABLETS 07/23/24 09/20/24 Rx apixaban 5 mg tablet (Eliquis) 5 mg PO BID BLOOD THINNER 08/16/24 09/20/24 History lisinopril 5 mg tablet 5 mg PO DAILY 09/20/24 09/20/24 History Allergy/AdvReac Type Severity Reaction Status Date / Time chlorhexidine (From Allergy Itching,erickson Verified 09/20/24 13:16 ChloraPrep Clear) h isopropyl alcohol (From Allergy Itching,erickson Verified 09/20/24 13:16 ChloraPrep Clear) h empagliflozin (From AdvReac Severe Genital Verified 09/20/24 13:16 Jardiance) yeast infection Family History Father CAD (coronary artery disease) Diabetes Cancer Mother Diabetes Brother brain aneurysm rupture Surgical History History of cardioversion (05/10/24) S/P ablation of atrial fibrillation S/P cardiac pacemaker procedure History of coronary artery stent placement (08/19/23) H/O coronary artery bypass surgery (12/02/08) History of arthroscopy of left shoulder (03/2017) History of left heart catheterization (LHC) (08/19/23) History of tonsillectomy Social History household members: spouse housing: house current occupational status: employed 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 Smoking Status: Never smoker alcohol intake: current alcohol intake frequency: a few times a month substance use type: does not use caffeine: Yes Type: carbonated beverages Number of servings: 5 and coffee Number of servings: 1 what type of physical activity do you participate in: none do you feel safe at home: Yes EXAM Physical Exam Const Vital Signs: 09/20/24 13:14 09/20/24 13:34 09/20/24 13:38 Temperature 98.2 F Temperature Source Oral Pulse Rate 172 H 174 H Pulse Rate [1 (Initial Baseline)] Pulse Rate [2] Pulse Rate [3] Respiratory Rate 28 H 25 H Respiratory Rate [1 (Initial Baseline)] Respiratory Rate [2] Respiratory Rate [3] Blood Pressure 121/91 H 172/121 H Blood Pressure [1 (Initial Baseline)] Blood Pressure [2] Blood Pressure [3] Blood Pressure Mean 101 138 Baseline BP Pulse Ox 97 100 Oxygen Delivery Method Room Air Room Air Room Air Oxygen Delivery Method [1 (Initial Baseline)] Oxygen Delivery Method [2] Oxygen Delivery Method [3] Oxygen Flow Rate (L/min) Oxygen Flow Rate (L/min) [1 (Initial Baseline)] Oxygen Flow Rate (L/min) [2] Oxygen Flow Rate (L/min) [3] EtCo2 - Document during CPR and with ROSC EtCo2 - Document during CPR and with ROSC [1 (Initial Baseline)] EtCo2 - Document during CPR and with ROSC [2] EtCo2 - Document during CPR and with ROSC [3] 09/20/24 13:55 09/20/24 13:55 09/20/24 13:58 Temperature Temperature Source Pulse Rate 175 H Pulse Rate [1 (Initial Baseline)] 175 H Pulse Rate [2] 60 Pulse Rate [3] 60 Respiratory Rate 16 Respiratory Rate [1 (Initial Baseline)] 16 Respiratory Rate [2] 20 H Respiratory Rate [3] 18 Blood Pressure 159/122 H Blood Pressure [1 (Initial Baseline)] 152/123 H Blood Pressure [2] 133/84 H Blood Pressure [3] 129/75 H Blood Pressure Mean Baseline BP 159/122 Pulse Ox 100 Oxygen Delivery Method Nasal Cannula Oxygen Delivery Method [1 (Initial Baseline)] Nasal Cannula Oxygen Delivery Method [2] Ambu-Bag Oxygen Delivery Method [3] Nasal Cannula Oxygen Flow Rate (L/min) 2 Oxygen Flow Rate (L/min) [1 (Initial Baseline)] 3 Oxygen Flow Rate (L/min) [2] 15 Oxygen Flow Rate (L/min) [3] 4 EtCo2 - Document during CPR and with ROSC 18 38 EtCo2 - Document during CPR and with ROSC [1 (Initial Baseline)] 27 EtCo2 - Document during CPR and with ROSC [2] 30 EtCo2 - Document during CPR and with ROSC [3] 100 09/20/24 14:11 09/20/24 14:13 09/20/24 14:16 Temperature Temperature Source Pulse Rate 60 60 61 Pulse Rate [1 (Initial Baseline)] Pulse Rate [2] Pulse Rate [3] Respiratory Rate 19 H 20 H 19 H Respiratory Rate [1 (Initial Baseline)] Respiratory Rate [2] Respiratory Rate [3] Blood Pressure 119/74 119/74 123/71 H Blood Pressure [1 (Initial Baseline)] Blood Pressure [2] Blood Pressure [3] Blood Pressure Mean 89 Baseline BP Pulse Ox 38 97 97 Oxygen Delivery Method Nasal Cannula Nasal Cannula Room Air Oxygen Delivery Method [1 (Initial Baseline)] Oxygen Delivery Method [2] Oxygen Delivery Method [3] Oxygen Flow Rate (L/min) 97 4 Oxygen Flow Rate (L/min) [1 (Initial Baseline)] Oxygen Flow Rate (L/min) [2] Oxygen Flow Rate (L/min) [3] EtCo2 - Document during CPR and with ROSC 38 31 EtCo2 - Document during CPR and with ROSC [1 (Initial Baseline)] EtCo2 - Document during CPR and with ROSC [2] EtCo2 - Document during CPR and with ROSC [3] 09/20/24 14:21 09/20/24 14:30 09/20/24 15:00 Temperature Temperature Source Pulse Rate 60 60 64 Pulse Rate [1 (Initial Baseline)] Pulse Rate [2] Pulse Rate [3] Respiratory Rate 19 H 20 H Respiratory Rate [1 (Initial Baseline)] Respiratory Rate [2] Respiratory Rate [3] Blood Pressure 122/69 H 136/89 H 145/90 H Blood Pressure [1 (Initial Baseline)] Blood Pressure [2] Blood Pressure [3] Blood Pressure Mean 104 108 Baseline BP Pulse Ox 98 100 Oxygen Delivery Method Room Air Room Air Oxygen Delivery Method [1 (Initial Baseline)] Oxygen Delivery Method [2] Oxygen Delivery Method [3] Oxygen Flow Rate (L/min) Oxygen Flow Rate (L/min) [1 (Initial Baseline)] Oxygen Flow Rate (L/min) [2] Oxygen Flow Rate (L/min) [3] EtCo2 - Document during CPR and with ROSC 30 EtCo2 - Document during CPR and with ROSC [1 (Initial Baseline)] EtCo2 - Document during CPR and with ROSC [2] EtCo2 - Document during CPR and with ROSC [3] 09/20/24 15:30 09/20/24 15:40 Temperature 98.2 F Temperature Source Pulse Rate 60 60 Pulse Rate [1 (Initial Baseline)] Pulse Rate [2] Pulse Rate [3] Respiratory Rate 16 Respiratory Rate [1 (Initial Baseline)] Respiratory Rate [2] Respiratory Rate [3] Blood Pressure 145/90 H 145/90 H Blood Pressure [1 (Initial Baseline)] Blood Pressure [2] Blood Pressure [3] Blood Pressure Mean 108 108 Baseline BP Pulse Ox 100 Oxygen Delivery Method Oxygen Delivery Method [1 (Initial Baseline)] Oxygen Delivery Method [2] Oxygen Delivery Method [3] Oxygen Flow Rate (L/min) Oxygen Flow Rate (L/min) [1 (Initial Baseline)] Oxygen Flow Rate (L/min) [2] Oxygen Flow Rate (L/min) [3] EtCo2 - Document during CPR and with ROSC EtCo2 - Document during CPR and with ROSC [1 (Initial Baseline)] EtCo2 - Document during CPR and with ROSC [2] EtCo2 - Document during CPR and with ROSC [3] MDM MDM MDM Narrative Medical decision making narrative: Patient is a 58-year-old male with past medical history of proximal atrial fibrillation, tachybradycardia syndrome, ALICIA on BiPAP, HTN, HLD, CAD status post CABG in 2008 presents for evaluation of tachycardia and palpitations. Has history of atrial fibrillation with RVR in which he has required cardioversion. On chart review, last cardioversion was in July in our emergency department. He converted with 200 J. Follows with cardiology. Has not missed any of his metoprolol or Eliquis. On chart review, patient had a cardiac catheterization on 08/[address] Enriquez. Plan was for medical therapy and follow-up with EP. Patient's last echocardiogram was from May 2024. EF was 45 to 50% with stage III diastolic dysfunction. On presentation, patient is tachycardic into the 170s. He is tachypneic. Blood pressure stable. EKG reviewed see below. Concerning for SVT. Patient given 6 mg of adenosine without any improvement in heart rate or change in rhythm. Another 12 mg of adenosine was given. Patient's heart rate did improve to the 119s however did not see any clear fibrillation or flutter. Heart rate immediately increased back into the 170s. Given patient has not missed any of his Eliquis, plan will be for electrocardioversion. I spoke with Dr. Fonseca who is in agreement. Patient was given propofol for sedation and cardioverted at 200 J. Repeat EKG below. Similar to previous EKG in July. After cardioversion and once more awake, patient was reevaluated. He states all of his symptoms have resolved. Differential diagnosis includes but is not limited to arrhythmia, electrolyte abnormality, dehydration, thyroid disease, ACS, PE. Cardiac workup ordered. CBC without leukocytosis. Patient has mild hemoconcentration. Platelets unremarkable. INR unremarkable. D-dimer unremarkable. BMP shows baseline renal insufficiency with creatinine of 1.36. Magnesium level unremarkable. TSH unremarkable. BNP elevated at 1187. Patient is not overtly fluid overloaded on exam or chest x-ray. He is already on diuretics. Original troponin 27 which increased to 42. The second troponin was taken after cardioversion which you would suspect an increase given he received a shock. He is not endorsing any chest pain. Patient discussed with Dr. Fonseca with cardiology. Plan is to discharge home. No change in medications. Follow-up in the office early next week. All the results and the plan were updated to the patient as well as . Return precautions explained. Recommended reaching out to EP to see if his ablation can be scheduled soon. They confirmed understanding of the plan. Patient stable to discharge home. EKG: Interpreted by me/EM physician: EKG shows SVT with a heart rate of 169. Nonspecific ST changes likely secondary to rate. Repeat EKG shows atrial paced rhythm with prolonged AV conduction. Incomplete right bundle branch block. Nonspecific ST changes. Heart rate 68. This is similar to previous EKG in July. Diagnostic: Interpreted by me/EM physician: Chest x-ray without pneumonia, effusion, cardiomegaly, pneumothorax. Radiology in agreement. Cardioversion Indication: SVT versus atrial tachycardia Consent: Risks, benefits, and alternatives discussed with patient and consent obtained Anesthesia: 140 mg propofol Procedure: The appropriate time-out was performed including proper identification of the patient, procedure, documentation. The patient was placed in the supine position and hands-free pads were placed on the patient's chest. 1 shock was provided at 200 Joules with successful resumption of rhythm. This was confirmed on EKG. Complications: The patient tolerated the procedure well without complications 45 minutes of critical care time utilized in managing the patient. This is due to high probability of and deterioration of the patient based on the patient's condition and excludes any separately billable procedures. Impression: 1. SVT versus atrial tachycardia, converted with electrical cardioversion 2. Renal insufficiency 3. History of atrial fibrillation with RVR Lab Data Labs: Laboratory Results - last 24 hr 09/20/24 09/20/24 13:20 15:20 WBC 10.1 RBC 5.49 Hgb 17.2 H Hct 51.5 MCV 93.8 MCH 31.3 MCHC 33.4 RDW Std Deviation 48.2 H RDW Coeff of Ashwini 14.1 Plt Count 165 MPV 11.2 Immature Gran % (Auto) 0.600 Neut % (Auto) 64.9 Lymph % (Auto) 17.7 L [place] % (Auto) 12.7 H Eos % (Auto) 3.0 Baso % (Auto) 1.1 H Absolute Neuts (auto) 6.5 Absolute Lymphs (auto) 1.78 Nucleated RBC % 0 PT 16.4 H INR 1.3 APTT 30.7 D-Dimer Quant (PE/DVT) 0.27 Sodium 139 Potassium 4.7 Chloride 103 Carbon Dioxide 21.9 Anion Gap 14 BUN 15 Creatinine 1.36 H Estim Creat Clear Calc 74.55 Est GFR (MDRD) Non-Af 60 BUN/Creatinine Ratio 10.7 Glucose 194 H Calcium 10.3 Magnesium 2.0 Troponin T High Sens 27 H Troponin T Hi Sens 2 Hr 42 H NT pro BNP II 1187 H TSH 2.930 Radiography Diagnostic Testing: Clinical Impression(s) from Imaging Studies Chest X-Ray 09/20/24 13:27 IMPRESSION: No acute process detected. [facility] Triage Chief Complaint: Chest Pain ED Provider: Ariel Bernard Dx/Rx/DC Orders Clinical Impression: SVT (supraventricular tachycardia) Instructions: ED Understanding Supraventricular Tachycardia (SVT) Prescriptions: No Action metoprolol succinate 100 mg tablet extended release 24 hr 100 mg PO BID Qty: 180 3RF spironolactone 25 mg tablet 25 mg PO DAILY Qty: 90 3RF albuterol sulfate 90 mcg/actuation HFA aerosol inhaler 2 puff inhalation Q4 PRN (Reason: wheezing) tizanidine 4 mg tablet 4 mg PO QHS PRN (Reason: MUSCLE SPASMS ) testosterone cypionate 200 mg/mL oil 100 mg IM Q14D Eliquis 5 mg tablet 5 mg PO BID Rx Instructions: Resume Friday08/18/24 lisinopril 5 mg tablet 5 mg PO DAILY potassium chloride 20 mEq tablet,ER particles/crystals 20 meq PO BID Qty: 270 3RF furosemide 40 mg tablet 80 mg PO BID Qty: 180 3RF atorvastatin 40 mg tablet 40 mg PO QHS Qty: 90 3RF clopidogrel 75 mg tablet 75 mg PO DAILY Qty: 30 6RF Primary Care Provider: Philip Coronado Referrals: Mina Enriquez MD [Med Staff - Active Staff] - 3-5 Days Activity Restrictions/Additional Instructions: Follow-up with cardiology. Call to make an appointment. Return back to the ED if symptoms change or worsen. Print Language: [place] Disposition Disposition: Home, Self Care Discharge Date/Time: 09/20/24 15:53
[2024-09-20 16:06] LABS: Troponin T High Sens 2 HR 42 ng/L (<=22)
== END 2024-09-20 15:53 | disposition home or self-care (01) ==
PROVIDERS: Emergency Provider Surgery; PCP Family Medicine; Visit Provider Surgery
DX: I47.10 Supraventricular tachycardia, unspecified (principal); I48.0 Paroxysmal atrial fibrillation; I25.10 Atherosclerotic heart disease of native coronary artery without angina pectoris; E78.5 Hyperlipidemia, unspecified; I10 Essential (primary) hypertension; G47.33 Obstructive sleep apnea (adult) (pediatric); Z79.51 Long term (current) use of inhaled steroids; Z79.01 Long term (current) use of anticoagulants; Z79.899 Other long term (current) drug therapy; Z95.1 Presence of aortocoronary bypass graft
CPT/HCPCS: 71046; 80048; 83735; 83880; 84443; 84484; 85025; 85379; 85610; 85730; 93005; 96361; 96374; 96376; 99152; 99252; 99283; A4216; G0463; J0153

== ENCOUNTER → 2025-01-13 | Outpatient (CLI) | payer OTHER, SELFPAY ==
[2018-10-26 11:39] VITALS: BMI 38.9
== END | disposition home or self-care (01) ==
LOC: CVS 13:58
PROVIDERS: PCP Family Medicine
DX: I49.8 Other specified cardiac arrhythmias (principal); I48.91 Unspecified atrial fibrillation; R00.2 Palpitations; R00.1 Bradycardia, unspecified; Z98.890 Other specified postprocedural states
CPT/HCPCS: 93306; Q9957; A4216; C8929

== ENCOUNTER 2025-01-29 09:02 | Emergency (ER) | payer OTHER, SELFPAY ==
[2018-10-26 11:39] VITALS: BMI 38.9
[2025-01-29] VITALS (11 sets, daily range): BP systolic 113–138; BP diastolic 67–114; PULSE 60–165; RESP 14–24; TEMP 36.7; O2SAT 97–100; BMI 37.8
--- NOTE | 2025-01-29 09:22 | EKG12_ITS ---
Test Reason : Blood Pressure : */* mmHG Vent. Rate : 154 BPM Atrial Rate : 129 BPM P-R Int : * ms QRS Dur : 88 ms QT Int : 282 ms P-R-T Axes : * 52 -61 degrees QTcB Int : [address] & T wave abnormality, consider inferior ischemia Abnormal ECG Confirmed by MARIEL ROJAS, JEREMY ([id number]), scientific publications editor FRANCISCA COATS ([id number]) on 01/31/2025 6:43:09 AM Referred By: Confirmed By: JEREMY FLOYD MD
--- NOTE | 2025-01-29 09:25 | ED.VIS.CHEST ---
HPI History of Present Illness Chief Complaint: Chest Pain Informant: patient Narrative Narrative: Patient is a 59-year-old male with a history of atrial fibrillation, presenting with palpitations, chest pain, and dyspnea. - Reports recurrent episodes of atrial fibrillation, typically occurring monthly to every 1.5 months, often requiring cardioversion, but hasn't had these issues since his last ablation in October. - These symptoms have been for about 1.5 weeks, waxing and waning, worse this AM. - Last week, pacemaker monitoring indicated atrial fibrillation with a heart rate of 132 bpm, accompanied by dyspnea and general malaise, which he described as tolerable. - This morning, awoke with a heart rate of 169 bpm, experiencing significant anxiety, bilateral arm pain, and generalized chest pressure, which he finds intolerable. - Describes amplification of all aches and pains during episodes of atrial fibrillation. - Denies recent illness or changes in medication, except for an increase in metoprolol dosage from 50 mg BID to 100 mg BID two days ago. - Has been on Eliquis for a long time. - Reports intermittent lower extremity swelling, varying by day, week, or month. No recent changes. [facility] Medical History Type 2 diabetes mellitus Obesity Nonsustained paroxysmal ventricular tachycardia PAF (paroxysmal atrial fibrillation) Tachy-bradley syndrome Sick sinus syndrome Essential hypertension HLD (hyperlipidemia) Atherosclerotic heart disease of inupiat coronary artery without angina pectoris Home Medications ?Medication ?Instructions ?Recorded ?Last Taken ?Type tizanidine 4 mg tablet 4 mg PO QHS PRN MUSCLE SPASMS 07/30/23 09/19/24 History potassium chloride 20 mEq 20 meq PO BID SUPPLEMENT #270 tabs 01/02/24 09/20/24 Rx tablet,extended release(part/cryst) furosemide 40 mg tablet 80 mg (2 x 40 mg) PO BID EDEMA 03/18/24 09/20/24 Rx #180 tabs spironolactone 25 mg tablet 25 mg PO DAILY edema #90 tabs 06/02/24 09/20/24 Rx atorvastatin 40 mg tablet 40 mg PO QHS CHOLESTEROL #90 tabs 07/07/24 09/19/24 Rx testosterone cypionate 200 mg/mL 100 mg IM Q14D 07/15/24 09/14/24 History intramuscular oil clopidogrel 75 mg tablet 75 mg PO DAILY #30 TABLETS 07/23/24 09/20/24 Rx apixaban 5 mg tablet (Eliquis) 5 mg PO BID BLOOD THINNER #180 11/15/24 Unknown Rx tabs hydrocodone-acetaminophen 5-325mg 1 tab PO BID PRN 11/22/24 Unknown History 5mg-325mg metformin 500 mg tablet 500 mg PO BID 11/22/24 Unknown History lisinopril 5 mg tablet 5 mg PO DAILY #90 tabs 01/19/25 Unknown Rx metoprolol succinate 100 mg 100 mg PO BID 01/26/25 Unknown History tablet,extended release 24 hr Allergy/AdvReac Type Severity Reaction Status Date / Time chlorhexidine (From Allergy Itching,erickson Verified 01/29/25 09:06 ChloraPrep Clear) h isopropyl alcohol (From Allergy Itching,erickson Verified 01/29/25 09:06 ChloraPrep Clear) h empagliflozin (From AdvReac Severe Genital Verified 01/29/25 09:06 Jardiance) yeast infection Family History Father CAD (coronary artery disease) Diabetes Cancer Mother Diabetes Brother brain aneurysm rupture Surgical History History of cardioversion (05/10/24) S/P ablation of atrial fibrillation S/P cardiac pacemaker procedure History of coronary artery stent placement (08/19/23) H/O coronary artery bypass surgery (12/02/08) History of arthroscopy of left shoulder (03/2017) History of left heart catheterization (LHC) (08/19/23) History of tonsillectomy Social History household members: spouse housing: house current occupational status: employed 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 Smoking Status: Never smoker alcohol intake: current alcohol intake frequency: a few times a month substance use type: does not use caffeine: Yes Type: carbonated beverages Number of servings: 5 and coffee Number of servings: 1 what type of physical activity do you participate in: none do you feel safe at home: Yes ROS ROS ED Constitutional Constitutional ED: Reports fatigue; Denies chills or fever(s) Eyes Eyes: Denies change in vision or diplopia ENT ENT ED: Denies rhinorrhea or sore throat Cardiovascular Cardiovascular: Reports as per HPI, chest pain, palpitations, pedal edema, pounding heartbeat, racing heartbeat and radiating jaw, neck or arm pain; Denies syncope Respiratory/Chest Respiratory/Chest: Denies cough or dyspnea Gastrointestinal Gastrointestinal: Denies abdominal pain, diarrhea, nausea or vomiting Genitourinary Genitourinary ED: Denies dysuria or hematuria Musculoskeletal Musculoskeletal: Reports myalgias; Denies back pain or neck pain Integumentary Denies abscess or rash Neurologic Neurologic: Denies headache(s), paresthesias or weakness Psychiatric Psychiatric: Denies suicidal thoughts EXAM Physical Exam Const Vital Signs: 01/29/25 09:04 01/29/25 09:22 01/29/25 09:26 Temperature 98.1 F Temperature Source Oral Pulse Rate 165 H Pulse Rate [1 (Initial Baseline)] Pulse Rate [2] Respiratory Rate 24 H Respiratory Rate [1 (Initial Baseline)] Respiratory Rate [2] Respiratory Effort Normal Non-Labored Blood Pressure 133/75 H Blood Pressure [1 (Initial Baseline)] Blood Pressure [2] Blood Pressure Mean 94 Baseline BP Pulse Ox 99 Oxygen Delivery Method Room Air Room Air Oxygen Delivery Method [1 (Initial Baseline)] Oxygen Delivery Method [2] Oxygen Flow Rate (L/min) Oxygen Flow Rate (L/min) [1 (Initial Baseline)] EtCo2 - Document during CPR and with ROSC EtCo2 - Document during CPR and with ROSC [1 (Initial Baseline)] EtCo2 - Document during CPR and with ROSC [2] 01/29/25 10:09 01/29/25 10:52 01/29/25 11:48 Temperature Temperature Source Pulse Rate 101 H 125 H Pulse Rate [1 (Initial Baseline)] Pulse Rate [2] Respiratory Rate 18 18 Respiratory Rate [1 (Initial Baseline)] Respiratory Rate [2] Respiratory Effort Blood Pressure 118/67 128/84 H Blood Pressure [1 (Initial Baseline)] Blood Pressure [2] Blood Pressure Mean 84 98 Baseline BP Pulse Ox 97 100 Oxygen Delivery Method Room Air Oxygen Delivery Method [1 (Initial Baseline)] Oxygen Delivery Method [2] Oxygen Flow Rate (L/min) Oxygen Flow Rate (L/min) [1 (Initial Baseline)] EtCo2 - Document during CPR and with ROSC 34 EtCo2 - Document during CPR and with ROSC [1 (Initial Baseline)] EtCo2 - Document during CPR and with ROSC [2] 01/29/25 11:48 01/29/25 11:53 01/29/25 11:57 Temperature Temperature Source Pulse Rate 123 H Pulse Rate [1 (Initial Baseline)] 123 H Pulse Rate [2] 60 Respiratory Rate 21 H Respiratory Rate [1 (Initial Baseline)] 22 H Respiratory Rate [2] 18 Respiratory Effort Blood Pressure 113/77 Blood Pressure [1 (Initial Baseline)] 135/110 H Blood Pressure [2] 129/114 H Blood Pressure Mean Baseline BP 113/77 Pulse Ox 100 Oxygen Delivery Method Room Air Nasal Cannula Oxygen Delivery Method [1 (Initial Baseline)] Nasal Cannula Oxygen Delivery Method [2] Room Air Oxygen Flow Rate (L/min) 2 Oxygen Flow Rate (L/min) [1 (Initial Baseline)] 2 EtCo2 - Document during CPR and with ROSC 36 EtCo2 - Document during CPR and with ROSC [1 (Initial Baseline)] 32 EtCo2 - Document during CPR and with ROSC [2] 39 01/29/25 12:00 01/29/25 12:08 01/29/25 12:13 Temperature Temperature Source Pulse Rate 60 60 60 Pulse Rate [1 (Initial Baseline)] Pulse Rate [2] Respiratory Rate 14 14 Respiratory Rate [1 (Initial Baseline)] Respiratory Rate [2] Respiratory Effort Blood Pressure 129/114 H 138/91 H 138/83 H Blood Pressure [1 (Initial Baseline)] Blood Pressure [2] Blood Pressure Mean 119 Baseline BP Pulse Ox 100 99 100 Oxygen Delivery Method Room Air Room Air Room Air Oxygen Delivery Method [1 (Initial Baseline)] Oxygen Delivery Method [2] Oxygen Flow Rate (L/min) Oxygen Flow Rate (L/min) [1 (Initial Baseline)] EtCo2 - Document during CPR and with ROSC 37 37 EtCo2 - Document during CPR and with ROSC [1 (Initial Baseline)] EtCo2 - Document during CPR and with ROSC [2] 01/29/25 12:18 Temperature Temperature Source Pulse Rate 60 Pulse Rate [1 (Initial Baseline)] Pulse Rate [2] Respiratory Rate 17 Respiratory Rate [1 (Initial Baseline)] Respiratory Rate [2] Respiratory Effort Blood Pressure 120/76 Blood Pressure [1 (Initial Baseline)] Blood Pressure [2] Blood Pressure Mean Baseline BP Pulse Ox 100 Oxygen Delivery Method Room Air Oxygen Delivery Method [1 (Initial Baseline)] Oxygen Delivery Method [2] Oxygen Flow Rate (L/min) 95 Oxygen Flow Rate (L/min) [1 (Initial Baseline)] EtCo2 - Document during CPR and with ROSC 37 EtCo2 - Document during CPR and with ROSC [1 (Initial Baseline)] EtCo2 - Document during CPR and with ROSC [2] Positive well nourished and well developed General Appearance ED: well developed and NAD HEENT Reports moist mucous membranes normocephalic and atraumatic Eyes PERRL and EOMs intact bilaterally Neck full ROM and supple Resp normal respiratory effort and clear to auscultation bilaterally Cardio no murmurs Rate: tachycardic Rhythm: abnormal rhythm irregularly irregular Peripheral Pulses: pulses 2+ throughout GI non-tender and non-distended Auscultation: normoactive bowel sounds Palpation: soft Back/Spine no CVA tenderness General Back: other FROM Extremity normal to inspection General Extremety ED: Yes edema; Negative for pulses abnormal or tenderness General Extremity: edema bilateral lower extremity Details: moderate; Negative for pulses abnormal Neuro oriented x3, CN's II-XII intact bilaterally and no sensory deficits noted Sensorium / Orientation: awake and alert Motor Exam: strength 5/5 throughout Psych mental status grossly normal Skin no rashes or lesions noted and no wounds Heart Score History: Moderately Suspicious ECG: Nonspecific Repolarization Age: >45 - <65 years Risk Factors: >/= 3 Risk Factors or History of CAD Score: 5 MDM MDM MDM Narrative Medical decision making narrative: Patient?s EKG is consistent with rapid atrial fibrillation. Given his symptoms, we ran a couple of troponin measurements while administering IV fluids and 20 mg of IV Cardizem. The troponins are non-specific but trending downward, suggesting his rate is the likely cause rather than unstable angina. The chest x-ray shows cardiomegaly and possibly mild congestion. His lungs sound clear, and he is not hypoxic, so I do not believe he is in acute decompensated congestive heart failure. I reviewed his last echocardiogram, which shows a good ejection fraction and some diastolic dysfunction but no systolic dysfunction. He felt somewhat better after Cardizem, but he still has a rapid ventricular response in the 120s. I discussed the case with Dr. Enriuqez, who indicated that the plan had been to cardiovert this patient earlier. However, the patient had been noncompliant with office follow-up for about a week and a half. Because he has been anticoagulated for a significant period, Dr. Enriquez recommended proceeding with cardioversion at this time. The procedure was performed without complications and was successful. The patient was asymptomatic upon awakening from sedation. A repeat EKG shows pacing at a rate of 60 with underlying sinus rhythm, no acute injury pattern, and no ST segment deviations. Once the patient fully recovers from sedation, he will be discharged with instructions for follow-up. PROBLEMS ADDRESSED - [x] Patient presents with a problem that potentially represents a highly morbid condition with a possible threat to life or bodily function: Atrial fibrillation with rapid ventricular response DATA REVIEWED AND ANALYZED Category 1 - Additional history was required and obtained from: - Prior external documentation reviewed: [x] Other: Last echocardiogram was reviewed. - Prior test results reviewed: [x] Serum labs: Troponin measurements were obtained and noted to be down trending. [x] EKGs: Multiple EKGs (initial showing rapid AFib and repeat post-cardioversion with pacing at 60 and underlying sinus rhythm) were reviewed. - [x] Tests were ordered and the results were independently reviewed by me: Chest x-ray Category 2 - [x] Tests were independently interpreted by me: - Chest x-ray shows cardinomegaly with possible mild congestion; the lung mercado are clear and the patient is not hypoxic. Independently interpreted by me, Noble Mariee. Category 3 - Discussion of management with another professional: - [x] [employer]: Discussed the case with Dr. Enriquez regarding the need for cardioversion given the persistent rapid AFib and symptoms. PATIENT MANAGEMENT - [x] Considered hospitalization or emergent surgery/procedure: Given the patient's symptomatic rapid AFib that was refractory to rate control with IV Cardizem and associated chest pain and shortness of breath, emergent cardioversion was performed after discussion with cardiology. The patient was stabilized and, after recovering from sedation, will be discharged with outpatient follow-up. - [ ] Controlled parenteral medications or medications requiring intensive monitoring were administered - [ ] Patient received controlled parenteral medications by EMS that required continued intensive monitoring in the emergency department - [x] Other: IV Cardizem 20 mg was administered, IV fluids were given, and successful synchronized cardioversion under sedation was performed. History & Record Review Additional record(s) reviewed:: Prior labs (echo) Lab Data Attestation: I reviewed the patient's lab results. Labs: Laboratory Results - last 24 hr 01/29/25 01/29/25 09:15 11:31 WBC 7.5 RBC 5.21 Hgb 15.6 Hct 47.8 MCV 91.7 MCH 29.9 MCHC 32.6 RDW Std Deviation 47.1 H RDW Coeff of Ashwini 14.0 Plt Count 197 MPV 10.9 Immature Gran % (Auto) 0.400 Neut % (Auto) 63.2 Lymph % (Auto) 20.0 [place] % (Auto) 12.4 H Eos % (Auto) 3.2 Baso % (Auto) 0.8 Absolute Neuts (auto) 4.8 Absolute Lymphs (auto) 1.50 Nucleated RBC % 0 Sodium 136 Potassium 5.4 H Chloride 100 Carbon Dioxide 22.7 Anion Gap 13 BUN 26 H Creatinine 1.36 H Estim Creat Clear Calc 73.56 Est GFR (MDRD) Non-Af 60 BUN/Creatinine Ratio 19.1 Glucose 185 H Calcium 9.6 Troponin T High Sens 40 H D Troponin T Hi Sens 2 Hr 33 H Radiography Diagnostic Testing: Clinical Impression(s) from Imaging Studies Chest X-Ray 01/29/25 09:40 IMPRESSION: Cardiomegaly with mild congestion. Reading Location: [facility] Rhythm Strip Rhythm Strip: A-fib Rate: 154 Ectopy: None EKG Initial EKG: Attestation: I personally reviewed and interpreted this EKG as follows: Interpretation: No Acute Injury Pattern, Atrial Fibrillation (With RVR) and Non-Specific ST Changes Prior EKG tracings: available for review Prior: Unchanged (Except this time no signs of significant ST depression/ischemia) Management Discussion w/another healthcare provider: [employer] (cardiology) Procedures Procedural Sedation 1 (Initial Baseline): Consent Signed: Yes Any Problems With Anesthesia: No Sedation medication: Etomidate Dose: 10 Route: IV Total Moderate Sedation Units: 8 Maliampati Score: Class III ASA Classification: II Comment:: On monitor with prophylactic nasal cannula oxygenation and IV fluids, end-tidal CO2 monitoring, airway equipment at the bedside. Tolerated well with no complications. Other Procedures Procedure(s): Electrocardioversion: After procedural sedation, see above, patient underwent synchronized cardioversion with 200 J biphasic energy, this was successful after the first attempts to sinus rhythm. Repeat EKG shows sinus rhythm with no acute injury pattern versus atrial pacing. QRS is narrow. Tolerated well no complications. Critical Care Time Critical Care Time: Yes Critical care time (excluding procedures): 30-74 minutes (36 minutes, not including procedure time), Including time spent:, Discussing w/Patient &/or Family/Finish Opener, Discussing w/Consultants and Performing Direct Patient Care at Bedside Discharge Plan Triage Chief Complaint: Chest Pain Other Complaint: Palpitations ED Provider: Noble Mariee Dx/Rx/DC Orders Clinical Impression: Atrial fibrillation with rapid ventricular response, Chest pain, unspecified, Anticoagulated on apixaban Instructions: Having Electrical Cardioversion Prescriptions: Continued spironolactone 25 mg tablet 25 mg PO DAILY Qty: 90 3RF metformin 500 mg tablet 500 mg PO BID hydrocodone-acetaminophen 5-325 mg tablet 1 tab PO BID PRN tizanidine 4 mg tablet 4 mg PO QHS PRN (Reason: MUSCLE SPASMS ) testosterone cypionate 200 mg/mL oil 100 mg IM Q14D potassium chloride 20 mEq tablet,ER particles/crystals 20 meq PO BID Qty: 270 3RF furosemide 40 mg tablet 80 mg PO BID Qty: 180 3RF atorvastatin 40 mg tablet 40 mg PO QHS Qty: 90 3RF clopidogrel 75 mg tablet 75 mg PO DAILY Qty: 30 6RF Eliquis 5 mg tablet 5 mg PO BID Qty: 180 3RF Rx Instructions: Resume Friday 08/18/ lisinopril 5 mg tablet 5 mg PO DAILY Qty: 90 3RF metoprolol succinate 100 mg tablet extended release 24 hr 100 mg PO BID Primary Care Provider: Philip Coronado Referrals: Mina Enriquez MD [Med Staff - Active Staff, Cardiology] - As soon as possible Print Language: [place] Island[place] Disposition Disposition: Home, Self Care
[2025-01-29] MEDS: 0.9% Normal Saline (1000mL) 1,000 ML 999 ML IV (09:27)
[2025-01-29 09:36] LABS: Hematocrit 47.8 % (40-54); Hemoglobin 15.6 g/dL (13.0-16.5); Immature Granulocytes Count 0.030 X10^3/uL (0.0-0.0); Mean Corp Hgb Conc 32.6 g/dL (32-36); Mean Corpuscular Volume 91.7 fL (80-94); Mean Platelet Vol. 10.9 fl (6.2-12.0); NRBC Flagged by Analyzer 0 % (0-5); Platelet Count 197 K/mm3 (150-450); RBC Distribution Width CV 14.0 % (11.6-14.6); RBC Distribution Width SD 47.1 fl (35.1-43.9); Red Blood Count 5.21 M/mm3 (4.6-6.2); White Blood Count 7.5 K/mm3 (4.4-11.0)
--- NOTE | 2025-01-29 09:40 | RAD_ITS ---
EXAM: XR Chest, 1 View CLINICAL INDICATION: CHEST PAIN TECHNIQUE: Frontal view of the chest. COMPARISON: XR Chest dated 09/20/2024 FINDINGS: LUNGS AND PLEURAL SPACES: See below. HEART: Cardiomegaly with mild congestion. MEDIASTINUM: Unremarkable. Normal mediastinal contour. BONES/JOINTS: Unremarkable. No acute fracture. TUBES, LINES AND DEVICES: Left-sided cardiac pacemaker. RAD/Chest 1 View (Portable) IMPRESSION: Cardiomegaly with mild congestion. Reading Location: [id number]
--- OUTSIDE RECORDS SUMMARY | 2025-01-29 10:04 | XMS RPT_ITS | CCD ---
Author Organization [facility] Care Team Providers Care Container Coordinator Name Role Phone DeFinis, Harumi Y Unavailable Unavailable DeFinis, Harumi Y Unavailable Unavailable MD Mina, Mina Munguia Unavailable ANNE Perrin, Ghada Mendoza Unavailable Unavailabl e LOUIS, CLAUDIA C Unavailable Unavailable LOUIS, CLAUDIA C Unavailable Unavailable LOUIS, CLAUDIA C Unavailable Unavailable RADHA MEJÍA A Unavailable Unavailable PROVIDER, UNKNOWN Unavailable Unavailable PROVIDER, UNKNOWN Unavailable Unavailable PROVIDER, UNKNOWN Unavailable Unavailable Marlow DO, Scot D Unavailable DeFinis, Harumi Y Unavailable Unavailable PHYSICIAN, NONE Primary Care Physician Unavailab Gaye Govea Unavailable Unavailable DR BHARAT CORONADO MD Primary Care Physician Bharat Coronado MD Primary Care Provider Bharat Coronado MD Primary Care Provider Dr. Bharat Coronado Primary Care Provider Dr. Bharat Coronado Referring Provider Shaggy HUSBANDRY PERSON, HUSBANDRY PERSON-Elian Pitt Attending Provider Dr. Nima Andino Attending Provider Dr. Santiago Roblero Emergency Provider Dr. Hugo Medeiros Admit Provider Dr. Hugo Medeiros Attending Provider Dr. Hugo Medeiros Other Provider Dr. Thomas Cunningham Attending Provider Dr. Brittney Bucio Attending Provider Dr. Brittney Bucio Other Provider Wilda Brady Other Provider Unavailable Dr. Areli David Other Provider Dr. Robert Ruiz Other Provider Dr. Sharif Conklin Other Provider Unavailable Dr. Mina Enriquez Other Provider Dr. Ha Benson Other Provider Dr. Nima Dewitt Other Provider Dr. Lakisha Beckham Other Provider Dr. Daron Sommer Other Provider Dr. Patricia Curran Other Provider Dr. Arturo Bloom Other Provider Dr. Thomas Cunningham Other Provider Dr. Colton De Jesus Other Provider Dr. Charles Casillas Other Provider Roof HUSBANDRY PERSON, HUSBANDRY PERSON-C Gregory Pitt Other Provider Justin HUSBANDRY PERSON, HUSBANDRY PERSON-C Wilda Other Provider Jairon CARTER, PA Rosaura Mendoza Other Provider Dr. Johan Henriquez Attending Provider Bharat Coronado MD Primary Care Provider Dr. Bharat Coronado Primary Care Provider Dr. Santiago Roblero Emergency Provider Dr. Hugo Medeiros Admit Provider Dr. Hugo Medeiros Other Provider Dr. Brittney Bucio Attending Provider Dr. Brittney Bucio Other Provider Wilda Brady Other Provider Unavailable Dr. Areli David Other Provider Dr. Robert Ruiz Other Provider Dr. Sharif Conklin Other Provider Unavailable Mina, Dr. Enriquez Other Provider Dr. Ha Benson Other Provider Dr. Nima Dewitt Other Provider Dr. Lakisha Beckham Other Provider Dr. Daron Sommer Other Provider Dr. Patricia Curran Other Provider Dr. Arturo Bloom Other Provider Dr. Thomas Cunningham Other Provider Dr. Colton De Jesus Other Provider Dr. Charles Casillas Other Provider Roof HUSBANDRY PERSON, HUSBANDRY PERSON-C Gregory Pitt Other Provider Justin HUSBANDRY PERSON, HUSBANDRY PERSON-C Wilda Other Provider De La O PA, PA Rosaura Mendoza Other Provider Dr. Bharat Coronado Referring Provider Roof HUSBANDRY PERSON, HUSBANDRY PERSON-C Gregory Pitt Attending Provider Dr. Thomas Cunningham Attending Provider Jairon CARTER, PA Rosaura Mendoza Attending Provider Dr. Bharat Coronado Primary Care Provider Dr. Bharat Coronado Referring Provider Roof HUSBANDRY PERSON, HUSBANDRY PERSON-C Gregory Pitt Attending Provider Dr. Mina Enriquez Admit Provider Dr. Mina Enriquez Attending Provider Dr. Mina Enriquez Referring Provider Dr. Mina Enriquez Other Provider Dr. Bharat Coronado Primary Care Provider Dr. Bharat Coronado Referring Provider De La O PAEMMA Attending Provider Mina, Dr. Enriquez Admit Provider Mina, Dr. Enriquez Attending Provider [phone] Mina, Dr. Enriquez Referring Provider [phone] Mina, Dr. Enriquez Other Provider Dr. Bharat Coronado Primary Care Provider Mina, Dr. Enriquez Attending Provider [phone] Mina, Dr. Enriquez Referring Provider [phone] Bharat Coronado Referring Provider Guillermina Mckinney Attending Provider Unavailable Dr. Bharat Coronado Primary Care Provider Mina, Dr. Enriquez Attending Provider [phone] Mina, Dr. Enriquez Referring Provider [phone] Bharat Coronado Primary Care Provider Mina, Dr. Enriquez Attending Provider [phone] Mina, Dr. Enriquez Referring Provider [phone] Bharat Coronado Referring Provider EMMA Vasquez Attending Provider Dr. Bharat Coronado Primary Care Provider Mina, Dr. Enriquez Attending Provider [phone] EMMA Vasquez Referring Provider Dr. Javier Potts Emergency Provider Dr. Martha Madrid Admit Provider Dr. Martha Madrid Other Provider Dr. Kuldeep Dong Other Provider Unavailable Dr. Areli David Attending Provider Dr. Areli David Other Provider Dr. Kuldeep Dong Attending Provider Unavailable Dr. Lakisha Beckham Attending Provider Bharat Coronado MD Primary Care Provider Dr. Bharat Coronado Primary Care Provider Dr. Mina Enriquez Attending Provider [phone] Mina Enriquez Referring Provider [phone] Areli David Referring Provider Justin TOUSSAINT, HUSBANDRY PERSONMarga Astudillo Attending Provider Group, [facility] Unavailable Mina Enriquez MD Unavailable Rosaura Arndt PA-C Unavailable [phone] Radha Hughes MD Unavailable Group, [facility] Unavailable Unavailable BHARTA CORONADO Referring Unavailable BHARAT CORONADO Consulting Unavailable DARREL GREGORY Attending Unavailable DARREL GREGORY Primary Care Unavailable DARREL GREGORY Admitting Unavailable PROVIDER, UNKNOWN Consulting Unavailable MINA ENRIQUEZ MD Attending Unavailable MINA ENRIQUEZ MD Primary Care Unavailable MINA ENRIQUEZ MD Admitting Unavailable BHARAT CORONADO Consulting Unavailable PROVIDER, UNKNOWN Consulting Unavailable Provider Vinay ROJAS Unavailable Unavailable Tannhof 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.MERCHANDISE FLOW TEAM LEADER, Suly Unavailable Haroon 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.MERCHANDISE FLOW TEAM LEADER, Wily Unavailable Rosaura De La O PA-C Unavailable Dr. Bharat Coronado MD Primary Care Provider Dr. Mina Enriquez MD Attending Provider [phone] Dr. Mina Enriquez MD Referring Provider [phone] Dr. Bonifacio Olivia MD Attending Provider Dr. Bonifacio Olivia MD Emergency Provider Dr. Bharat Coronado MD Referring Provider Rosaura Vasquez Attending Provider [phone] Dr. Terrance Sanders MD Attending Provider Dr. Terrance Sanders MD Emergency Provider Gregory Dang Attending Provider [facility] HUSBANDRY PERSON-C, Gregory Pitt Referring Provider Thu ROJAS, Dr. Herring Attending Provider [phone] Frankie RJOAS, Dr. Singleton Attending Provider [facility] HUSBANDRY PERSON-C, Gregory Pitt Other Provider Valerie TYLER, Dr. Henderson Emergency Provider Robbie ROJAS, John Taveras Unavailable Tammi ROJAS, Gayle Castellanos Unavailable Derek RITTERC, Nikole Laguerre Unavailable Geronimo MANAGER CREATIVE, Mary Lou E Unavailable Unavailable Arash ROJAS, Radha Taylor Unavailable Gaston RITTERC, Suzi Martins Unavailable Omar MANAGER CREATIVE, Floridalma Dale Unavailable Unavailab le Vess MANAGER CREATIVE, Neilee L Unavailable Unavailable Zaugg MANAGER CREATIVE, Yuki Unavailable Unavailable Unavailable Unavailable Olvin 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.MERCHANDISE FLOW TEAM LEADER, Suly Unavailable Dr. Bharat Coronado MD Primary Care Provider Cliff ROJAS, Dr. Palacios Referring Provider Mina ROJAS, Dr. Enriquez Attending Provider [phone] Terrance Sanders MD Attending Provider Dr. Terrance Sanders MD Emergency Provider Dr. Santiago Roblero DO Attending Provider [facility] [place] Serum anion gap measurementO rdered By: Bonifacio Olivia on 03-30-2024 Anion gap [Moles/Vol] 5 mmol/L 5-15 [facility] Serum or plasma calcium leyla urement (mass/volume)Ordered By: Bonifacio Olivia on 03-30-2024 Calcium [Mass/Vol] 10.0 mg/dL 8.5-10.1 [facility] Serum or plasma creatinine m easurement (mass/volume)Ordered By: Bonifacio Olivia on 03-30-2024 Creatinine [Mass/Vol] 1.57 mg/dL High 0.70-1.30 [facility] Comment on above: The validity of the calculated GFR & GFRAA in patients over 70 years has not been determined. Clinical correlation is essential. Serum or plasma urea nitroge n measurement (mass/volume)Ordered By: Bonifacio Olivia on 03-30-2024 Urea nitrogen [Mass/Vol] 21 mg/dL High 7-18 [facility] Sodium levelOrdered By: Bonifacio Olivia on 03-30-2024 Sodium [Moles/Vol] 136 mmol/L 136-145 [facility] Troponin IOrdered By: Bonifacio love on 03-30-2024 Troponin I High Sensitivity 187 pg/mL High 3.0-78.0 [facility] Comment on above: Critical Result(s) C alled at: 10:14:11 03/30/2024 by: JORJE MADRID to Marsha Marks. Results read back by same. Please Note: New Test Units and Gender Specific Reference Ranges. For more information see Policy Stat Procedure [place] High Sensitivity Troponin (TNIH) and attachments. White blood cell (WBC) count Ordered By: Bonifacio Olivia on 03-30-2024 WBC (Bld) [#/Vol] 7.9 10*3/uL 4.4-11.0 [facility] CNPNon 03-02-2024 [facility] ([id number]) 1965 M Date Time Provider Department 03/02/24 RADHA HUGHES [facility] During your visit today, we recorded the following information about you: Tc Evans MA 03/02/2024 4:13 PM Signed Please review Echo as ordered. Completed through [facility]. View External Cardiology - Echo [ID [id number]] Allergies As of Date: 03/02/2024 Noted Allergy Reaction CHLORHEXIDINE 06/26/2023 2 - Rash EMPAGLIFLOZIN 09/04/2023 14 - Other: See Comments Comments: Bad yeast infection ISOPROPYL ALCOHOL 06/26/2023 9 - Itching Date Reviewed: 02/20/2024 Reviewed by: Suzi House APRN.MERCHANDISE FLOW TEAM LEADER - Fully Assessed Reason for Visit: Results [95] Prescriptions as of 12/10/2024 - blood sugar diagnostic test strip Use with blood glucose test once daily - Lancets Use with blood glucose test once daily - alcohol swabs Use with blood glucose test once daily - Blood-Glucose Meter UAD daily - metFORMIN (GLUCOPHAGE) 500 mg tablet Take 1 tablet by mouth two times a day. - testosterone cypionate (DEPO-TESTOSTERONE) 200 mg/mL injection Inject 0.5 mL intramuscularly every 2 weeks for 168 days. - Syringe with Needle, Disp, (SYRINGE 3CC/22GX1) 3 mL 22 gauge x 1 Use as directed for testosterone injection - metoprolol succinate ER (TOPROL XL) 50 mg 24 hr tablet Take 1 tablet by mouth two times a day. - potassium chloride ER (KLOR-CON) 20 mEq tablet Take 1 tablet by mouth two times a day. Patient should start on October 14, 2024. - Syringe with Needle, Disp, 3 mL 23 x 1 Use as directed with testosterone injection - clopidogrel (PLAVIX) 75 mg tablet - lisinopril (ZESTRIL) 5 mg tablet once daily. - fluticasone (FLONASE) 50 mcg/actuation nasal spray Use 2 Sprays in each nostril once daily. Rinse mouth after use. - atorvastatin (LIPITOR) 40 mg tablet Take 40 mg by mouth daily at bedtime. - ELIQUIS 5 mg tab(s) Take 1 tablet by mouth every 12 hours 6am/6pm. - tiZANidine (ZANAFLEX) 4 mg tablet Take 4 mg by mouth once daily as needed (muscle spasm). - HYDROcodone-acetaminoph en (NORCO) 5-325 mg per tablet Take 1 tablet by mouth twice daily as needed. - furosemide (LASIX) 40 mg tablet Take 1 tablet by mouth two times a day. Problem List As Of Date 03/02/2024 Noted Resolved Injury of neck [S19.9XXA] 06/28/2021 Hypogonadism in male [E29.1] 06/28/2021 Atherosclerotic heart disease of rampart coronar*06/28/2021 ED (erectile dysfunction) of organic origin [N5*06/28/2021 Preop examination [Z01.818] 03/18/2023 Renal calculus, right [N20.0] 03/18/2023 Essential (primary) hypertension [I10] 02/05/2021 Diagnosed: 03/18/2023 HLD (hyperlipidemia) [E78.5] 03/18/2023 Diagnosed: 03/18/2023 History of coronary artery bypass surgery [Z95.*12/02/2008 Diagnosed: 03/18/2023 ALICIA treated with BiPAP [G47.33] 03/18/2023 Diagnosed: 03/18/2023 Presence of cardiac pacemaker [Z95.0] 06/07/2022 Diagnosed: 03/18/2023 Persistent atrial fibrillation (HCC) [I48.19] 02/27/2022 Diagnosed: 03/18/2023 CHF (congestive heart failure) (HCC) [I50.9] 03/18/2023 Diagnosed: 03/18/2023 Hypertensive heart disease with heart failure (*08/08/2023 Opioid dependence (HCC) [F11.20] 01/02/2023 Mild tricuspid insufficiency [I07.1] 09/10/2023 Nonsustained paroxysmal ventricular tachycardia*09/10/2023 prison current use of anticoagulant therapy *09/10/2023 Leg edema [R60.0] 09/10/2023 History of cardioversion [Z92.89] 12/14/2021 Fatigue [R53.83] 09/10/2023 Dyspnea on exertion [R06.09] 09/10/2023 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] 02/05/2021 Cervical myelopathy (HCC) [G95.9] 09/10/2023 Bradycardia [R00.1] 09/10/2023 Palpitations [R00.2] 11/26/2021 Spinal stenosis of lumbar region [M48.061] 02/17/2020 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] 09/10/2023 Atrial fibrillation with rapid ventricular resp*09/10/2023 History of coronary artery stent placement [Z95*08/19/2023 At risk for stroke [Z91.89] 09/10/2023 prison current use of antiarrhythmic drug [Z*09/10/2023 11/12/2023 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 [address] Echo Complete W/ Contrast 03/02/24 1104 MR#: [id number] Acct: [id number] Name: BHARAT FINCH Rep #: [id number] : 1965 58 From: Mina Enriquez MD Attending Dr: Dr. Radha Hughes MD Status: REG CLI Ordering Dr: Radha Hughes MD Date: 03/02/24 Location: [facility] Sex: M C Admitted: Version 2 Reason For Study: Afib Procedure This was a 2D Doppler, Color Flow transthoracic echocardiogram. Contrast injection was performed. Exam performed in department. Left Ventricle Normal LV size. Left ventricular systolic function is normal. The left ventricular ejection fraction is 60 %. No regional wall motion abnormalities noted. Right Ventricle Normal RV size. ICD or pacer leads identified within the right ventricle. Normal systolic function. Atria The left atrium is mildly enlarged. Normal right atrium. Mitral Valve Normal mitral valve. Tricuspid Valve Normal tricuspid valve. Mild (1+) tricuspid valve insufficiency. Pulmonary artery systolic pressure is 34 mmHg. Aortic Valve Trisinus/trileaflet aortic valve. Mild focal aortic valve thickening. Pulmonic Valve The pulmonic valve is not well visualized. Great Vessels Normal aortic root. The pulmonary artery is normal size. Inferior vena cava collapse with respiration. Pericardium/Pleural No pericardial effusion. Medication Diluted definity 1.5ml given slow IV push to enhance endocardial definition. MMode/2D Measurements Calculations LVIDd: 5.1 cm IVSd: 1.1 cm asc Aorta Diam: 3.1 cm LVIDs: 3.5 cm LVPWd: 1.1 cm RVDd: 4.6 cm FS: 30.5 % LAV(MOD-bp): 72.6 ml LVAd ap4: 34.5 cm2 SV(MOD-sp4): 78.4 ml LAV(MOD-bp) Indexed: 32.5 ml/m2 LVLd ap4: 7.6 cm SI(MOD-sp4): 35.1 ml/m2 LAV(MOD-sp2): 66.2 ml EDV(MOD-sp4): 128.1 ml LAV(MOD-sp4): 77.2 ml EDV(sp4-el): 133.7 ml LVAs ap4: 19.3 cm2 LVLs ap4: 6.1 cm ESV(MOD-sp4): 49.7 ml ESV(sp4-el): 52.0 ml EF(MOD-sp4): 61.2 % EF(sp4-el): 61.1 % SV(sp4-el): 81.7 ml LA A4 area: 23.3 cm2 LA dimension(2D): 5.0 cm RA A4 area: 16.4 cm2 TAPSE: 1.7 cm Time Measurements MV dec time: 0.25 sec Doppler Measurements Calculations MV E max pj: 110.0 cm/sec Lat Peak E' Pj: 8.3 cm/sec Med Peak E' Pj: 3.5 cm/sec MV A max pj: 42.3 cm/sec E/E' lat: 13.2 E/E' med: 31.7 MV E/A: 2.6 MV V2 max: 139.0 cm/sec MV dec slope: 433.4 cm/sec2 Ao V2 max: 136.3 cm/sec MV max P.7 mmHg Ao max P.4 mmHg MV V2 mean: 69.7 cm/sec Ao V2 mean: 102.3 cm/sec MV mean P.4 mmHg Ao mean P.4 mmHg MV V2 VTI: 44.3 cm Ao V2 VTI: 30.0 cm LV V1 max: 108.0 cm/sec PA V2 max: 79.0 cm/sec TR max pj: 276.0 cm/sec LV V1 max P.7 mmHg TR max P.5 mmHg ECHO/Echo Complete W/ Contrast Interpretation Summary Normal LV size. Left ventricular systolic function is normal. The left ventricular ejection fraction is 60 %. Mild focal aortic valve thickening. Pulmonary artery systolic pressure is 34 mmHg. ICD or pacer leads identified within the right ventricle. Contrast injection was performed. Ordering Physician: Radha Hughes Referring Physician: Bharat Coronado Performed By: Anjali Coon, RDCS, RVT 03/02/24 1504 Date Mina Enriquez MD CC: Dr. Bharat Coronado MD; Dr. Radha Hughes MD Date Dictated: 03/02/24 1104 Date Transcribed: 03/02/24 1425 School Treasurer: Signed [facility] 02-20-2024 [facility] Office Visit (AGCARDPOB) MIKAYLABHARAT Castellanos Jace ([id number]) 1965 M Date Time Provider Department 02/20/24 11:00 AM SUZI HOUES During your visit today, we recorded the following information about you: Pulse Respiration Blood pressure Weight 60/minute 18/minute 124/82 107 kg Height 1.753 m Tita Rodriguez MA 02/20/2024 10:46 AM Signed Patient denies any cardiac issues or symptoms. Suzi House APRN.KORINA 02/20/2024 12:19 PM Signed [facility] General Cardiology Electrophysiology PRIMARY CARE PHYSICIAN: Bharat Coronado [address] [place] [address] CHIEF COMPLAINT: Cardiovascular medicine follow-up for arrhythmia. HISTORY OF PRESENT ILLNESS: Mr. Finch is a 58 year old male who presents today for follow-up regarding arrhythmia. History copied from previous notes, edited as needed: Dr. Hughes office visit 09/12/2023: Mr. Finch is a 57 year old male who presents today for evaluation, accompanied by janna. He states he has had atrial fibrillation for a couple years now. Recently treated with amiodarone, diltiazem was discontinued at that time. He states he took the amiodarone for 8 days. He states the drug made him feel terrible so he stopped taking it. States amiodarone is a terrible drug. Previously was on dronedarone. He has had issues with rapid heart rates, at other times slow rates. A pacemaker was implanted in April 2022 for sick sinus syndrome. He had cardioversion in [facility] 09/04/2023, sinus rhythm lasted for only a couple days and then the atrial fibrillation recurred. Sometimes can tell when in the atrial fibrillation especially with tachycardia. Another cardioversion was done a couple years ago, was in normal rhythm for awhile. He has CAD, previous percutaneous interventions. He states he just recently had another coronary procedure, last PCI/stent was 08/19/2023. He is referred for evaluation of management of the atrial fibrillation. [facility] notes mention the possibility of AV node catheter ablation. IMPRESSION: Mr. Finch has symptomatic persistent atrial fibrillation. I had a detailed discussion with Mr. Finch and his fiance regarding atrial fibrillation and its management. I reviewed the cornerstones or pillars of management including stroke prevention, ventricular response rate control, atrial rhythm control and patient modifiable risk factors and lifestyle changes relevant to atrial fibrillation. Ventricular rates are not well controlled right now. The diltiazem was stopped when the amiodarone was initiated recently, but now he stopped taking it due to bothersome symptoms that he attributed to the amiodarone. I think he should resume the diltiazem for now. With failure of antiarrhythmic drug therapy and/or poor tolerance to it, we should consider catheter ablation of the atrial fibrillation. Another option would be AV node catheter ablation, he already has a pacemaker but the complete heart block resulting from the AV node catheter ablation would then make him dependent on the pacemaker, with 100% ventricular pacing. It seems preferable to target the atrial fibrillation with ablation, particularly at his relatively young age. There is reasonable expectation for atrial fibrillation catheter ablation to be effective. I did discuss the atrial fibrillation ablation procedure with Mr. Finch in detail. He expressed understanding the procedure is performed without interruption of the oral anticoagulation (Eliquis and Plavix), and that the procedure is performed with the use of general anesthesia. Interval History: The patient underwent cryoballoon catheter ablation of atrial fibrillation with Dr. Hughes 11/12/2023, he was discharged the next day and metoprolol was reduced to 100 mg daily, and later further reduced to 50 mg daily in December. He presented to the [facility] in January, was found to be in atrial fibrillation with RVR, subsequently was transferred to [facility], reported taking Eliquis once daily instead of twice daily due to bruising, underwent JOSE ALBERTO guided cardioversion 01/27/[address] Mendoza, sinus rhythm was restored and he was discharged the next day. He reports doing well since the most recent hospitalization, states he has more energy and improved quality of life since the ablation procedure. He denies chest discomfort, palpitations, shortness of breath, lightheadedness, dizziness, near-syncope or syncope. He remains anticoagulated with Eliquis, denies any bleeding issues or falls. He reports compliance with BiPAP therapy. He reports having his 3-month post ablation testing performed at [facility], I see the Holter monitor report, however I do not see the echocardiogram report, we will see if Dr. Hughes has received and perhaps it is just not scanned in yet. (more content not included)... Normal [facility] ECG B/O W INTERP (MED OFFICE )on 02-20-2024 atrial paced rhythm with prolonged AV conduction, 60 bpm, MS 212 ms, QRS 106 ms, QT/QTc 436/436 ms. [facility] CNOVon 02-16-2024 CNOV Office Visit (FAMPWS ) BHARAT FINCH ([id number]) 1965 M Date Time Provider Department 02/16/24 7:40 AM WILY MCGHEE During your visit today, we recorded the following information about you: Pulse Respiration Blood pressure Weight 60/minute 16/minute 138/78 109.8 kg Wily Mcghee APRN.CNP 02/16/2024 7:58 AM Signed Chief Complaint Patient presents with: Follow Up: ER [facility] F/u Musellajuana NOONANIB HPI Bharat Finch is a 58 year old male who presents here today for Chronic Medical Conditions. and ER Follow Up. Patient to [facility] ER recently for atrial fibrillation. He has an ablation in November. In the most recent visit to the ER, he was cardioverted after sent to [facility]. He is feeling much better. More energy. Has follow up this week with cardiology History of hypogonadism. Due for testosterone check. Using Androl gel. Admits not sleeping the best, but could be to worry about the atrial fib. Feels like he has more energy. Due for lipid panel screening Due for colon cancer screening. Past medical history, appointments, medications, allergies reviewed. EXAM: BP 138/78 Pulse 60 Resp 16 Wt 109.8 kg (242 lb) SpO2 97% BMI 35.74 kg/m? General Appearance: Well appearing, alert, in no acute distress, well-hydrated, well nourished.. Lungs: Lungs clear to auscultation. No wheezing, rhonchi, rales.. Heart: RRR without murmur, gallop, or rubs. No ectopy. Latest Ref Rng 11/13/2023 01/26/2024 01/27/2024 WBC 3.70 - 11.00 k/uL 11.09 (H) 6.75 RBC 4.20 - 6.00 m/uL 4.65 4.76 Hemoglobin 13.0 - 17.0 g/dL 13.6 13.9 Hematocrit 39.0 - 51.0 % 42.0 42.5 MCV 80.0 - 100.0 fL 90.3 89.3 MCH 26.0 - 34.0 pg 29.2 29.2 MCHC 30.5 - 36.0 g/dL 32.4 32.7 RDW-CV 11.5 - 15.0 % 15.6 (H) 15.0 Platelet Count 150 - 400 k/uL 209 145 (L) MPV 9.0 - 12.7 fL 11.2 9.8 Absolute nRBC <0.01 k/uL <0.01 <0.01 Glucose 74 - 99 mg/dL 165 (H) 140 (H) BUN 9 - 24 mg/dL 22 16 Creatinine 0.73 - 1.22 mg/dL 1.32 (H) 1.09 Sodium 136 - 144 mmol/L 137 142 Potassium 3.7 - 5.1 mmol/L 4.5 4.3 Chloride 98 - 107 mmol/L 101 106 CO2 22 - 30 mmol/L 23 23 Anion Gap 8 - 15 mmol/L 13 13 Calcium 8.5 - 10.2 mg/dL 9.2 9.2 eGFR >=60 mL/min/1.73m? 63 79 KATIE High Sensitivity <12 ng/L 145 (H) 164 (H) KATIE High Sensitivity 117 (H) Magnesium 1.7 - 2.3 mg/dL 1.8 TSH 0.270 - 4.200 mIU/L 1.630 ASSESSMENT/PLAN: 1. Hypogonadism in male - ICD9: 257.2, ICD10: E29.1 (primary diagnosis) -Continue AndroGel, check testosterone this morning. - TESTOSTERONE, FREE AND TOTAL, BY EQUILIBRIUM ULTRAFILTRATION MASS SPECTROMETRY 2. Atrial fibrillation, unspecified type (HCC) - ICD9: 427.31, ICD10: I48.91 -Continue following with cardiology - LIPID PANEL BASIC 3. Essential (primary) hypertension - ICD9: 401.9, ICD10: I10 - Controlled - Continue current medications - Recommend home blood pressure monitoring, to bring results to next visit - Encouraged sodium restriction, DASH or Mediterranean diet - Recommend regular aerobic exercise 4. 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 This note was partly generated using [employer] voice recognition dictation and may contain some misspelled or inaccurate words missed on review. Wily Mcghee APRN.CNP 02/16/2024 8:02 AM Signed Addended by: WILY MCGHEE on: 02/16/2024 08:02 AM Modules accepted: Orders Allergies As of Date: 02/16/2024 Noted Allergy Reaction CHLORHEXIDINE 06/26/2023 2 - Rash EMPAGLIFLOZIN 09/04/2023 14 - Other: See Comments Comments: Bad yeast infection ISOPROPYL ALCOHOL 06/26/2023 9 - Itching Date Reviewed: 02/16/2024 Reviewed by: Nae Ceron LPN - Fully Assessed Reason for Visit: Follow Up [171] Cmt: ER [facility] F/u [facility] Primary Visit Diagnosis:Hypogonadism in male [E29.1] Other Visit Diagnoses:Atrial fibrillation, unspecified type (HCC) [I48.91] Essential (primary) hypertension [I10] Screening for colon cancer [Z12.11] Order(s):LIPID PANEL BASIC [SQLIPB] Order #: [id number] FUTURE CONSULT TO GENERAL SURGERY [9010] Order #: [id number]: 1 FUTURE TESTOSTERONE, FREE AND TOTAL, BY EQUILIBRIUM ULTRAFILTRATION MASS SPECTROMETRY [SQTFTEST] Order #: [id number] FUTURE LIPID PANEL, NONFASTING [SQLIPNF] Order #: [id number] FUTURE Prescriptions as of 02/16/2024 - testosterone (ANDROGEL) 50 mg / 5 g (1%) Apply 1 Packet as directed once daily for 90 days. - potassium chloride ER (KLOR-CON) 20 mEq tablet Take 1 tablet by mouth two times a day. - metoprolol succinate ER (TOPROL XL) 100 mg Take 1 tablet by mouth once daily. - atorvastatin (LIPITOR) 40 mg tablet Take 40 mg by mouth daily at bedtime. - ELIQUIS 5 mg tab(s) Take 1 tablet by mouth every 12 hours 6am/6pm. - tiZANidine (ZANAFLEX) 4 mg tablet Take 4 mg by mouth once (more content not included)... Normal [facility] LIPID PANEL, NONFASTINGon Cholesterol [Mass/Vol] 137 mg/dL Normal <200 Cl [facility] Comment on above: Order Comment: Speci men Type: BLOOD SPECIMENOrdering Facility: [facility] Address: [address] [place] [address] Result Comment: <200 mg/dL, Desirable 200-239 mg/dL, Borderline high >239 mg/dL, High Performed By: #### L IPNF ####[facility] LABCLIA [id number] [address] [place] HDL CHOLESTEROL, NF 45 mg/dL Normal >39 [facility] Comment on above: Order Comment: Berna blackwood Type: BLOOD SPECIMENOrdering Facility: [facility] Address: [address] [place] [address] Result Comment: 40-5 9 mg/dL, Acceptable >59 mg/dL, High: Negative risk factor for coronary heart disease <40 mg/dL, Low: Positive risk factor for coronary heart disease Performed By: #### L IPNF ####[facility] LABCLIA [id number] [address] OF [facility] LDL CHOLESTEROL, NF 76 mg/dL Normal <100 [facility] Comment on above: Order Comment: Berna blackwood Type: BLOOD SPECIMENOrdering Facility: [facility] Address: [address] [place] [address] Result Comment: <100 mg/dL, Optimal 100-129 mg/dL, Near optimal/above optimal 130-159 mg/dL, Borderline high 160-189 mg/dL, High >189 mg/dL, Very high Secondary prevention optimal LDL Cholesterol levels are recommended to be < 70 mg/dL Performed By: #### L IPNF ####[facility] LABCLIA [id number] [address] OF [facility] LDL/HDL RATIO, NF 1.69 mg/dL Normal <2.54 [facility] Comment on above: Order Comment: Berna blackwood Type: BLOOD SPECIMENOrdering Facility: [facility] Address: [address] [place] [address] Result Comment: Refe rence: 1. National Cholesterol Education Program ATP III Guideline At-A-Glance Quick Desk Reference: National Heart, Lung, and Blood [place]. National Institutes of Health. 2001: NIH Publication No. 01-3305. 2. An International Atherosclerosis Society position paper: global recommendations for the management of dyslipidemia: executive summary, Atherosclerosis. 2014: 232(2):410-413. Performed By: #### L IPNF ####[facility] LABCLIA [id number] [place] [address] [place] NON HDL CHOL, NF 92 mg/dL Normal <130 [facility] Comment on above: Order Comment: Speci men Type: BLOOD SPECIMENOrdering Facility: [facility] Address: [address] [place] [address] Result Comment: <130 mg/dL, Optimal 130-159 mg/dL, Near optimal/above optimal 160-189 mg/dL, Borderline high 190-219 mg/dL, High >219 mg/dL, Very high Secondary prevention optimal non HDL Cholesterol levels are recommended to be <100 mg/dL Performed By: #### L IPNF ####[facility] LABCLIA [id number] [place] [address] [place] T CHOL/HDL RATIO NF 3.04 mg/dL Normal <5.10 [facility] Comment on above: Order Comment: Speci men Type: BLOOD SPECIMENOrdering Facility: [facility] Address: [address] [place] [address] Performed By: #### L IPNF ####[facility] LABCLIA [id number] [place] [address] [place] TRIGLYCERIDES, NF 81 mg/dL Normal <150 [facility] Comment on above: Order Comment: Speci men Type: BLOOD SPECIMENOrdering Facility: [facility] Address: [address] [place] [address] Result Comment: <150 mg/dL, Normal 150-199 mg/dL, Borderline high 200-499 mg/dL, High >499 mg/dL, Very high Performed By: #### L IPNF ####[facility] LABCLIA [id number] [place] [address] [place] VLDL CHOLESTEROL, NF 16 mg/dL Normal <30 [facility] Comment on above: Order Comment: Speci men Type: BLOOD SPECIMENOrdering Facility: [facility] Address: [address] [place] [address] Performed By: #### L IPNF ####[facility] LABCLIA [id number] [address] [facility] [place] [address] [place] TESTOSTERONE, FREE AND TOTAL , BY EQUILIBRIUM ULTRAFILTRATION MASS SPECTROMETRYon 02-16-2024 Testosterone [Mass/Vol] 491.7 ng/dL Normal 264.0-916.0 [facility] Comment on above: Order Comment: Speci men Type: BLOOD SPECIMENOrdering Facility: [facility] Address: [address] [place] [address] Result Comment: This [facility] LC/MS-MS method is currently certified by the CDC Hormone Standardization Program (HoSt). Adult male reference interval is based on a population of healthy nonobese males (BMI <30) between 19 and 39 years old. Anu et.al. JCEM 2017,102;6986-9532. PMID: [id number]. Performed By: #### T FTEST ####[facility] LABCLIA [id number] [place] [address] Testosterone Free [Mass/Vol] 15.49 ng/dL Normal 5.00-21.00 [facility] Comment on above: Order Comment: Speci men Type: BLOOD SPECIMENOrdering Facility: [facility] Address: [address] [place] [address] Performed By: #### T FTEST ####[facility] LABCLIA [id number] [place] [address] Testosterone Free/Testosterone.tota l [Mass fraction] 3.15 % Normal 1.50-4.20 [facility] Comment on above: Order Comment: Speci men Type: BLOOD SPECIMENOrdering Facility: [facility] Address: [address] [place] [address] Performed By: #### T FTEST ####[facility] LABCLIA [id number] [place] [address] Kyle 02-06-2024 AUGIE Telephone (PODCCP) BHARAT FINCH ([id number]) 1965 M Date Time Provider Department 02/06/24 AYDEN SUH During your visit today, we recorded the following information about you: Ayden Suh RN 02/06/2024 3:24 PM Signed Transitional Care Management (TCM) [facility] Provider Action / FYI: na SUMMARY: Outreach type: INITIAL OUTREACH Discharge Network Status: In-Network Discharge Source of Patient: [facility] TCM Discharge Report Patient discharged from [facility] on 01.28.24. Admitted for Atrial arrhythmia . . Contact made with patient: No, for Follow-up - end outreach and close encounter. Ayden Suh RN February 06, 2024 3:24 PM Allergies As of Date: 02/06/2024 Noted Allergy Reaction CHLORHEXIDINE 06/26/2023 2 - Rash EMPAGLIFLOZIN 09/04/2023 14 - Other: See Comments Comments: Bad yeast infection ISOPROPYL ALCOHOL 06/26/2023 9 - Itching Date Reviewed: 01/26/2024 Reviewed by: Nima Graham RN - Fully Assessed Reason for Visit: Transition Of Care [4074] Prescriptions as of 02/06/2024 - testosterone (ANDROGEL) 50 mg / 5 g (1%) Apply 1 Packet as directed once daily for 90 days. - potassium chloride ER (KLOR-CON) 20 mEq tablet Take 1 tablet by mouth two times a day. - metoprolol succinate ER (TOPROL XL) 100 mg Take 1 tablet by mouth once daily. - atorvastatin (LIPITOR) 40 mg tablet Take 40 mg by mouth daily at bedtime. - ELIQUIS 5 mg tab(s) Take 1 tablet by mouth every 12 hours 6am/6pm. - tiZANidine (ZANAFLEX) 4 mg tablet Take 4 mg by mouth once daily as needed (muscle spasm). - HYDROcodone-acetaminoph en (NORCO) 5-325 mg per tablet Take 1 tablet by mouth twice daily as needed. - furosemide (LASIX) 40 mg tablet Take 1 tablet by mouth two times a day. Problem List As Of Date 02/06/2024 Noted Resolved Injury of neck [S19.9XXA] 06/28/2021 Hypogonadism in male [E29.1] 06/28/2021 Atherosclerotic heart disease of rampart coronar*06/28/2021 ED (erectile dysfunction) of organic origin [N5*06/28/2021 Preop examination [Z01.818] 03/18/2023 Renal calculus, right [N20.0] 03/18/2023 Essential (primary) hypertension [I10] 02/05/2021 Diagnosed: 03/18/2023 HLD (hyperlipidemia) [E78.5] 03/18/2023 Diagnosed: 03/18/2023 History of coronary artery bypass surgery [Z95.*12/02/2008 Diagnosed: 03/18/2023 ALICIA treated with BiPAP [G47.33] 03/18/2023 Diagnosed: 03/18/2023 Presence of cardiac pacemaker [Z95.0] 06/07/2022 Diagnosed: 03/18/2023 Persistent atrial fibrillation (HCC) [I48.19] 02/27/2022 Diagnosed: 03/18/2023 CHF (congestive heart failure) (HCC) [I50.9] 03/18/2023 Diagnosed: 03/18/2023 Hypertensive heart disease with heart failure (*08/08/2023 Opioid dependence (HCC) [F11.20] 01/02/2023 Mild tricuspid insufficiency [I07.1] 09/10/2023 Nonsustained paroxysmal ventricular tachycardia*09/10/2023 prison current use of anticoagulant therapy *09/10/2023 Leg edema [R60.0] 09/10/2023 History of cardioversion [Z92.89] 12/14/2021 Fatigue [R53.83] 09/10/2023 Dyspnea on exertion [R06.09] 09/10/2023 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] 02/05/2021 Cervical myelopathy (HCC) [G95.9] 09/10/2023 Bradycardia [R00.1] 09/10/2023 Palpitations [R00.2] 11/26/2021 Spinal stenosis of lumbar region [M48.061] 02/17/2020 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] 09/10/2023 Atrial fibrillation with rapid ventricular resp*09/10/2023 History of coronary artery stent placement [Z95*08/19/2023 At risk for stroke [Z91.89] 09/10/2023 prison current use of antiarrhythmic drug [Z*09/10/2023 11/12/2023 prison current use of amiodarone [Z79.899] 09/10/2023 11/12/2023 Obesity, Class II, BMI 35-39.9 [E66.812] 09/12/2023 Coronary artery disease [I25.10] 11/12/2023 Status post catheter ablation of atrial fibrill*11/12/2023 Atrial arrhythmia [I49.8] 01/26/2024 Encounter Status:[facility] BHARAT FINCH ([id number]) 1965 M Date Time Provider Department 02/02/24 BHARAT CORONADO 4CQ During your visit today, we recorded the following information about you: Kelvin Reyes 02/02/2024 3:54 PM Signed Transitional Care Management (TCM) [facility] Provider Action / FYI: na SUMMARY: Outreach type: INITIAL OUTREACH Discharge Network Status: In-Network Discharge Source of Patient: [facility] TCM Discharge Report Patient discharged from [facility] on 01.28.24. Admitted for Atrial arrhythmia . Contact made with patient: No - next outreach attempt will be on next business day. Kelvin Reyes February 02, 2024 3:54 PM Allergies As of Date: 02/02/2024 Noted Allergy Reaction CHLORHEXIDINE 06/26/2023 2 - Rash EMPAGLIFLOZIN 09/04/2023 14 - Other: See Comments Comments: Bad yeast infection ISOPROPYL ALCOHOL 06/26/2023 9 - Itching Date Reviewed: 01/26/2024 Reviewed by: Nima Graham RN - Fully Assessed Reason for Visit: Transition Of Care [4074] Prescriptions as of 02/02/2024 - testosterone (ANDROGEL) 50 mg / 5 g (1%) Apply 1 Packet as directed once daily for 90 days. - potassium chloride ER (KLOR-CON) 20 mEq tablet Take 1 tablet by mouth two times a day. - metoprolol succinate ER (TOPROL XL) 100 mg Take 1 tablet by mouth once daily. - atorvastatin (LIPITOR) 40 mg tablet Take 40 mg by mouth daily at bedtime. - ELIQUIS 5 mg tab(s) Take 1 tablet by mouth every 12 hours 6am/6pm. - tiZANidine (ZANAFLEX) 4 mg tablet Take 4 mg by mouth once daily as needed (muscle spasm). - HYDROcodone-acetaminoph en (NORCO) 5-325 mg per tablet Take 1 tablet by mouth twice daily as needed. - furosemide (LASIX) 40 mg tablet Take 1 tablet by mouth two times a day. 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/28/2021 ED (erectile dysfunction) of organic origin [N5*06/28/2021 Preop examination [Z01.818] 03/18/2023 Renal calculus, right [N20.0] 03/18/2023 Essential (primary) hypertension [I10] 02/05/2021 Diagnosed: 03/18/2023 HLD (hyperlipidemia) [E78.5] 03/18/2023 Diagnosed: 03/18/2023 History of coronary artery bypass surgery [Z95.*12/02/2008 Diagnosed: 03/18/2023 ALICIA treated with BiPAP [G47.33] 03/18/2023 Diagnosed: 03/18/2023 Presence of cardiac pacemaker [Z95.0] 06/07/2022 Diagnosed: 03/18/2023 Persistent atrial fibrillation (HCC) [I48.19] 02/27/2022 Diagnosed: 03/18/2023 CHF (congestive heart failure) (HCC) [I50.9] 03/18/2023 Diagnosed: 03/18/2023 Hypertensive heart disease with heart failure (*08/08/2023 Opioid dependence (HCC) [F11.20] 01/02/2023 Mild tricuspid insufficiency [I07.1] 09/10/2023 Nonsustained paroxysmal ventricular tachycardia*09/10/2023 prison current use of anticoagulant therapy *09/10/2023 Leg edema [R60.0] 09/10/2023 History of cardioversion [Z92.89] 12/14/2021 Fatigue [R53.83] 09/10/2023 Dyspnea on exertion [R06.09] 09/10/2023 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] 02/05/2021 Cervical myelopathy (HCC) [G95.9] 09/10/2023 Bradycardia [R00.1] 09/10/2023 Palpitations [R00.2] 11/26/2021 Spinal stenosis of lumbar region [M48.061] 02/17/2020 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] 09/10/2023 Atrial fibrillation with rapid ventricular resp*09/10/2023 History of coronary artery stent placement [Z95*08/19/2023 At risk for stroke [Z91.89] 09/10/2023 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 [Z*09/10/2023 11/12/2023 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 [Z79.899] 09/10/2023 11/12/2023 Obesity, Class II, BMI 35-39.9 [E66.812] 09/12/2023 Coronary artery disease [I25.10] 11/12/2023 Status post catheter ablation of atrial fibrill*11/12/2023 Atrial arrhythmia [I49.8] 01/26/2024 Encounter Status:Closed by KELVIN REYES on 02/02/24 [facility] 01-28-2024 CN HNO ID: [id number] Author: NANDINI PINA MD Service: Hospital Medicine Author Type: Physician Type: Discharge Summary Filed: 01/28/2024 15:17 Note Text: DISCHARGE SUMMARY PATIENT NAME: Bharat Finch ADMISSION DATE: 01/26/2024 DISCHARGE DATE: 01/28/2024 Attending Physician: Nandini Pina MD Reason for Hospitalization: Principal Problem: Atrial arrhythmia (POA: Yes) Active Problems: Essential (primary) hypertension (POA: Yes) History of coronary artery bypass surgery (POA: Yes) History of coronary artery stent placement (POA: Yes) Resolved Problems: * No resolved hospital problems. * Operations During Hospitalization: None Procedures During Hospitalization: JOSE ALBERTO guided cardioversion Hospital Course: Patient is a 58-year-old male with past medical history of sick sinus syndrome with pacemaker in situ, CAD with PCI and CABG in the past(recent PCI in August 2023), ischemic cardiomyopathy, ALICIA, obesity, A-fib status post catheter ablation in October 2023 presenting with intermittent palpitations and chest discomfort. Patient was noted to be in A-fib RVR. Started on Cardizem drip and was admitted for further evaluation and management.Patient seen by cardiac table tender and underwent JOSE ALBERTO guided cardioversion. Patient remained stable postprocedure. Patient admission was also noted to have elevated cardiac enzymes. This was felt to be related to tachyarrhythmia. Patient denied any active chest pain.. JOSE ALBERTO showed LVEF of 40% slightly lower from before. LVEF noted to be 45% in August when he had a stent placed. As patient remained chest pain-free and hemodynamically stable he is being discharged home. Patientt has an appointment with his own category consultant the following day which he is asked to keep. Labs and Procedures Pending at Discharge: No pending results. Consulting Teams During Hospitalization: Cardiology: Dr.Faisal Mendoza Patient Condition @ Discharge: Stable Discharge Disposition: Home with Self Care FOLLOW UP: with PCP in 1 week, category consultant in 1 day as scheduled I Discharge Medications: Medication List CHANGE how you take these medications potassium chloride ER 20 mEq tablet Commonly known as: KLOR-CON Take 1 tablet by mouth two times a day. What changed: when to take this CONTINUE taking these medications atorvastatin 40 mg tablet Commonly known as: LIPITOR ELIQUIS 5 mg tab(s) Generic drug: apixaban furosemide 40 mg tablet Commonly known as: LASIX HYDROcodone-acetaminoph en 5-325 mg per tablet Commonly known as: NORCO metoprolol succinate ER 100 mg Commonly known as: TOPROL XL Take 1 tablet by mouth once daily. testosterone 50 mg / 5 g (1%) Commonly known as: AndroGeL Apply 1 Packet as directed once daily for 90 days. tiZANidine 4 mg tablet Commonly known as: ZANAFLEX STOP taking these medications albuterol HFA 90 mcg/actuation inhaler Commonly known as: VENTOLIN HFA clopidogrel 75 mg tablet Commonly known as: PLAVIX I have performed the [id number] and relevant services for a total of 45 minutes. Highest Readmission Risk Score: 10 The 30 day readmissions risk score is derived from an internally validated risk model which evaluates patient level characteristics, utilization history, medication orders and lab results up until the day of discharge. Patients with a score of 40 or above are considered highest risk for readmission. Specific patient level drivers will be listed at the bottom of the summary. The 30 day readmissions risk score is derived from an internally validated risk model which evaluates patient level characteristics, utilization history, medication orders and lab results up until the day of discharge. Patients with a score of 40 or above are considered highest risk for readmission. Specific patient level drivers will be listed at the bottom of the summary. SIGNATURE: Nandini Pina MD PAGER: DATE: January 28, 2024 TIME: 3:04 PM [facility] CONSULTon 01-28-2024 CONSULT HNO ID: [id number] Author: KULDEEP KAUFMAN MD Service: Clinical Cardiology Author Type: Physician Type: Consults Filed: 02/19/2024 15:56 Note Text: CONSULT: CARDIOLOGY SERVICE SERVICE DATE: 01/28/2024 SERVICE TIME: 4:00 PM CONSULTING PHYSICIAN: Kuldeep Kaufman PCP: Bharat Coronado MD ATTENDING: Nandini Pina MD REASON FOR CONSULT: Chest Pain Subjective CHIEF COMPLAINT: Atrial arrhythmia [I49.8] HISTORY OF PRESENT ILLNESS: Mr. Finch is a 58 year old male who presents for chest pain. Patient was discharged prior to the consult being performed Orders reviewed and I agree with the cardiac orders. Additional orders include: SIGNATURE: Kuldeep Kaufman MD PATIENT NAME: Bharat Finch DATE: January 28, 2024 TIME: 4:03 PM [facility] ANES POSTPROC EVALon 024 ANES POSTPROC EVAL HNO ID: [id number] Author: EDWIGE SMITH MD Service: Anesthesiology Author Type: Anesthesiologist Type: Anesthesia Postprocedure Evaluation Filed: 01/27/2024 15:44 Note Text: POST ANESTHESIA EVALUATION NOTE : 1965 Procedure Summary Date: 01/27/24 Room / Location: [place] [address] / [facility] Anesthesia Start: 1147 Anesthesia Stop: 1241 Procedures: CARDIOVERSION EXTERNAL ELECTIVE ECHOCARDIOGRAM TRANSESOPHOGEAL, REAL TIME W/IMAGE DOCUMENT (2D) Diagnosis: Atrial fibrillation, unspecified type (HCC) (Atrial fibrillation, unspecified type (HCC) [I48.91]) Surgeons: Zak Mendoza MD Responsible Provider: Edwige Smith MD Anesthesia Type: MAC ASA Status: 3 Anesthesia Type: MAC Last Vitals Vitals Value Taken Time BP 125/77 01/27/24 1539 Temp 36.8 ?C (98.3 ?F) 01/27/24 1539 Pulse 60 01/27/24 1539 Resp 18 01/27/24 1402 SpO2 99 % 01/27/24 1539 Post Anesthesia Patient Status Anticipated Disposition: inpatient floor planned admission. Neurological Status: aware and responsive. Pulmonary Status: breathing comfortably on room air Airway Control: returned to baseline unsupported. Cardiovascular Status: stable. Pain Management: clinically adequate Postoperative Hydration: acceptable. Intraoperative Events: no significant anesthesia events Post Operative Nausea/Vomiting Status: no significant post operative nausea or vomiting Recommendation: further care per PACU/ICU/floor team. Anesthesia Observations No Documentation SIGNATURE: Edwige Smith MD PATIENT NAME: Bharat Finch DATE: January 27, 2024 TIME: 3:43 PM CSN: [id number] [facility] ANES PRE-OPon 01-27-2024 ANES PRE-OP HNO ID: [id number] Author: EDWIGE SMITH MD Service: Anesthesiology Author Type: Anesthesiologist Type: Anesthesia Preprocedure Evaluation Filed: 01/27/2024 11:50 Note Text: ANESTHESIOLOGY DAY OF SURGERY NOTE : 1965 Procedure Information Anesthesia Start Date/Time: 01/27/24 1147 Procedures: CARDIOVERSION EXTERNAL ELECTIVE ECHOCARDIOGRAM TRANSESOPHOGEAL, REAL TIME W/IMAGE DOCUMENT (2D) Location: [place] [facility] Surgeons: Zak Mendoza MD Estimated body mass index is 36.43 kg/m? as calculated from the following: Height as of this encounter: 175.3 cm (5' 9). Weight as of this encounter: 111.9 kg (246 lb 11.1 oz). Most recent hematocrit and potassium results: Hematocrit 42.5 01/27/2024 Potassium 4.3 01/27/2024 Relevant Problems ANESTHESIA (+) ALICIA treated with BiPAP CARDIO (+) 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 (+) Atrial arrhythmia (+) Atrial fibrillation with rapid ventricular response (HCC) (+) CHF (congestive heart failure) (HCC) (+) Coronary artery disease (+) Dyspnea on exertion (+) Essential (primary) hypertension (+) History of coronary artery bypass surgery (+) Nonsustained paroxysmal ventricular tachycardia (HCC) (+) Persistent atrial fibrillation (HCC) (+) Presence of cardiac pacemaker (+) Tachy-bradley syndrome (HCC) -RENAL (+) Renal calculus, right PULMONARY (+) Dyspnea on exertion (+) ALICIA treated with BiPAP I - PHYSICAL EVALUATION AIRWAY Patient intubated: No. Tracheostomy tube not present Mallampati: III. TM distance: >3 FB. Neck ROM: full ROM without neurological symptoms. Mouth opening: adequate. Short neck: no. Thick neck: no DENTAL Dental findings: teeth intact. II - ANESTHESIA PLAN ASA Score: 3 Anesthetic Plan: MAC The patient is not a current smoker. NPO Status: adequate Beta Mitra Monitoring Plan Monitoring plan: standard ASA. Post Procedure Analgesic Plan Postoperative analgesic plan: multimodal analgesia and parenteral or oral opioids. Informed Consent Anesthetic risks, benefits, alternatives, personnel and consent discussed: yes. Patient / Responsible [employer] agrees to proceed: yes Patient / Surrogate agrees to blood products: blood products not planned Potential Anesthesia issues that may suggest increased risk of complications or contraindication to planned procedure: none. Vitals Value Taken Time BP Pulse 80 01/27/24 1114 Resp Temp SpO2 Facility-Administered Medications as of 01/27/2024 Medication Dose Route Frequency [Transfer Hold] sodium chloride 0.9 % (flush) 2-10 mL (BD POSIFLUSH) 2-10 mL INTRAVENOUS DIRECTED PRN And [Transfer Hold] perflutren lipid microspheres 1.1 mg/mL 1.3 mL injection (DEFINITY) 1.3 mL INTRAVENOUS DIRECTED PRN [Transfer Hold] sodium chloride 0.9 % (flush) 2-10 mL (BD POSIFLUSH) 2-10 mL INTRAVENOUS ONCE [Transfer Hold] apixaban 5 mg tab(s) (ELIQUIS) 5 mg ORAL q 12 H 6a/6p [Transfer Hold] metoprolol tartrate (short acting) 50 mg tab(s) (LOPRESSOR) 50 mg ORAL q 12 H [COMPLETED] metoprolol 5 mg injection (LOPRESSOR) 5 mg INTRAVENOUS ONCE [Transfer Hold] HYDROcodone 5 mg - acetaminophen 325 mg tablet (NORCO) 1 tablet ORAL q 6 H PRN [Transfer Hold] atorvastatin 40 mg tab(s) (LIPITOR) 40 mg ORAL AT BEDTIME [Transfer Hold] tiZANidine 4 mg tab(s) (ZANAFLEX) 4 mg ORAL DAILY PRN [Transfer Hold] NaCl 0.9% iv flush bag 20 mL INTRAVENOUS PRN [Transfer Hold] acetaminophen 650 mg tab(s) (TYLENOL) 650 mg ORAL q 6 H PRN [COMPLETED] dilTIAZem 20 mg bolus from bag (CARDIZEM) 20 mg INTRAVENOUS ONCE [Transfer Hold] dilTIAZem 100 mg in D5W 100 mL Vial-Bag (CARDIZEM) 5-15 mg/hr INTRAVENOUS CONTINUOUS Outpatient Medications as of 01/27/2024 Medication Sig metoprolol succinate ER (TOPROL XL) 100 mg Take 1 tablet by mouth once daily. testosterone (ANDROGEL) 50 mg / 5 g (1%) Apply 1 Packet as directed once daily for 90 days. potassium chloride ER (KLOR-CON) 20 mEq tablet Take 20 mEq by mouth once daily. atorvastatin (LIPITOR) 40 mg tablet Take 40 mg by mouth daily at bedtime. ELIQUIS 5 mg tab(s) Take 1 tablet by mouth every 12 hours 6am/6pm. tiZANidine (ZANAFLEX) 4 mg tablet Take 4 mg by mouth once daily as needed (muscle spasm). HYDROcodone-acetaminoph en (NORCO) 5-325 mg per tablet Take 1 tablet by mouth twice daily as needed. furosemide (LASIX) 40 mg tablet Take 1 tablet by mouth two times a day. clopidogrel (PLAVIX) 75 mg tablet Take 75 mg by mouth once daily. I have interviewed and examined the patient. I have reviewed the medical record and/or the pre-anesthesia evaluation, pertinent labs, and test results. This contains updated information obtained within 48 hours of Surgery/Procedure. SIGNATURE: Edwige Smith MD PATIENT NAME: Bharat Finch DATE: January 27, 2024 TIME: 11:50 AM CSN: [id number] Normal [facility] Basic metabolic 2000 panelon 01-27-2024 Anion gap [Moles/Vol] 13 mmol/L Normal 8-15 [facility] Comment on above: Order Comment: Speci men Type: BLOOD SPECIMENOrdering Facility: [facility] Address: [address] [place] [address] Performed By: #### 2 4321-2, 3015-06, ####[facility] LABORATORYCLIA [id number] [place] [address] [place] Calcium [Mass/Vol] 9.2 mg/dL Normal 8.5-10.2 [facility] Comment on above: Order Comment: Speci men Type: BLOOD SPECIMENOrdering Facility: [facility] Address: [address] [place] [address] Performed By: #### 2 4321-2, 3015-06, ####[facility] LABORATORYCLIA [id number] [place] [address] [place] Chloride [Moles/Vol] 106 mmol/L Normal 98-107 [facility] Comment on above: Order Comment: Speci men Type: BLOOD SPECIMENOrdering Facility: [facility] Address: [address] [place] [address] Performed By: #### 2 4321-2, 3015-06, ####[facility] LABORATORYCLIA [id number] [place] [address] [place] CO2 [Moles/Vol] 23 mmol/L Normal 22-30 [facility] Comment on above: Order Comment: Speci men Type: BLOOD SPECIMENOrdering Facility: [facility] Address: [address] [place] [address] Performed By: #### 2 4321-2, 3015-3, ####[facility] [id number] [place] [id number] [place] [facility] Creatinine [Mass/Vol] 1.09 mg/dL Normal 0.73-1.22 [facility] Comment on above: Order Comment: Specdell men Type: BLOOD SPECIMENOrdering Facility: [facility] Address: [address] [place] [address] Performed By: #### 2 4321-2, 3015-3, ####[facility] [id number] [place] [id number] [facility] Creatinine and Glomerular filtration rate.predicted panel (S/P/Bld) 79 mL/min/1.73m??? Normal >=60 [facility] Comment on above: Order Comment: Berna blackwood Type: BLOOD SPECIMENOrdering Facility: [facility] Address: [address] [place] [address] Result Comment: Agata mated Glomerular Filtration Rate (eGFR) is calculated using the 2020 CKD-EPI creatinine equation. This equation utilizes serum creatinine, sex, and age as parameters. The creatinine assay has traceable calibration to isotope dilution-mass spectrometry. Refer to KDIGO guidelines for clinical interpretation. In patients with unstable renal function, e.g. those with acute kidney injury, the eGFR may not accurately reflect actual GFR. Performed By: #### 2 4321-2, 3, ####[facility] LABORATORYIA [id number] [place] [id number] [place] Glucose [Mass/Vol] 140 mg/dL High 74-99 [facility] Comment on above: Order Comment: Berna blackwood Type: BLOOD SPECIMENOrdering Facility: [facility] Address: [address] [place] [address] Result Comment: The [place] Diabetes Association (ADA) provides guidance for cutoff values for fasting glucose and random glucose. The ADA defines fasting as no caloric intake for at least 8 hours. Fasting plasma glucose results between 100 to 125 mg/dL indicate increased risk for diabetes (prediabetes). Fasting plasma glucose results greater than or equal to 126 mg/dL meet the criteria for diagnosis of diabetes. In the absence of unequivocal hyperglycemia, results should be confirmed by repeat testing. In a patient with classic symptoms of hyperglycemia or hyperglycemic crisis, random plasma glucose results greater than or equal to 200 mg/dL meet the criteria for diagnosis of diabetes. Reference: Standards of Medical Care in Diabetes 2016, [place] [employer] Association. Diabetes Care. 2016.39(Suppl 1). Performed By: #### 2 4321-2, 3, ####[facility] LABORATORYCLIA [id number] [place] [address] [place] Potassium [Moles/Vol] 4.3 mmol/L Normal 3.7-5.1 [facility] Comment on above: Order Comment: Berna blackwood Type: BLOOD SPECIMENOrdering Facility: [facility] Address: [address] [place] [address] Performed By: #### 2 4321-2, 3015-06, ####[facility] LABORATORYCLIA [id number] [place] [address] [place] Sodium [Moles/Vol] 142 mmol/L Normal 136-144 [facility] Comment on above: Order Comment: Berna blackwood Type: BLOOD SPECIMENOrdering Facility: [facility] Address: [address] [place] [address] Performed By: #### 2 4321-2, 3015-06, ####[facility] LABORATORYCLIA [id number] [place] [address] [place] Urea nitrogen [Mass/Vol] 16 mg/dL Normal 9-24 [facility] Comment on above: Order Comment: Berna blackwood Type: BLOOD SPECIMENOrdering Facility: [facility] Address: [address] [place] [address] Performed By: #### 2 4321-2, 3, ####[facility] LABORATORYCLIA [id number] [place] [address] [place] CBC panel Auto (Bld)on 01-26 Erythrocyte distribution width (RBC) [Ratio] 15.0 % Normal 11.5-15.0 [facility] Comment on above: Order Comment: Speci men Type: BLOOD SPECIMENOrdering Facility: [facility] Address: [address] [place] [address] Performed By: #### 5 8410-2 ####[facility] LABORATORYCLIA [id number] [address] OF [facility] Hematocrit (Bld) [Volume fraction] 42.5 % Normal 39.0-51.0 [facility] Comment on above: Order Comment: Speci men Type: BLOOD SPECIMENOrdering Facility: [facility] Address: [address] [place] [address] Performed By: #### 5 8410-2 ####[facility] LABORATORYCLIA [id number] [address] [place] Hemoglobin (Bld) [Mass/Vol] 13.9 g/dL Normal 13.0-17.0 [facility] Comment on above: Order Comment: Speci men Type: BLOOD SPECIMENOrdering Facility: [facility] Address: [address] [place] [address] Performed By: #### 5 8410-2 ####[facility] LABORATORYCLIA [id number] [address] [place] MCH (RBC) [Entitic mass] 29.2 pg Normal 26.0-34.0 [facility] Comment on above: Order Comment: Speci men Type: BLOOD SPECIMENOrdering Facility: [facility] Address: [address] [place] [address] Performed By: #### 5 8410-2 ####[facility] LABORATORYCLIA [id number] [address] [place] MCHC (RBC) [Mass/Vol] 32.7 g/dL Normal 30.5-36.0 [facility] Comment on above: Order Comment: Speci men Type: BLOOD SPECIMENOrdering Facility: [facility] Address: [address] [place] [address] Performed By: #### 5 8410-2 ####[facility] LABORATORYCLIA [id number] [address] MCV (RBC) [Entitic vol] 89.3 fL Normal 80.0-100.0 [facility] Comment on above: Order Comment: Speci men Type: BLOOD SPECIMENOrdering Facility: [facility] Address: [address] [place] [address] Performed By: #### 5 8410-2 ####[facility] LABORATORYCLIA [id number] [address] OF [facility] Nucleated RBC (Bld) [#/Vol] 10*3/uL Normal <0.01 [facility] Comment on above: Order Comment: Speci men Type: BLOOD SPECIMENOrdering Facility: [facility] Address: [address] [place] [address] Performed By: #### 5 8410-2 ####[facility] LABORATORYCLIA [id number] [address] [place] Platelet mean volume (Bld) [Entitic vol] 9.8 fL Normal 9.0-12.7 [facility] Comment on above: Order Comment: Speci men Type: BLOOD SPECIMENOrdering Facility: [facility] Address: [address] [place] [address] Performed By: #### 5 8410-2 ####[facility] LABORATORYCLIA [id number] [address] [place] Platelets (Bld) [#/Vol] 145 10*3/uL Low 150-400 [facility] Comment on above: Order Comment: Speci men Type: BLOOD SPECIMENOrdering Facility: [facility] Address: [address] [place] [address] Performed By: #### 5 8410-2 ####[facility] LABORATORYCLIA [id number] [address] OF [place] RBC (Bld) [#/Vol] 4.76 10*6/uL Normal 4.20-6.00 [facility] Comment on above: Order Comment: Berna blackwood Type: BLOOD SPECIMENOrdering Facility: [facility] Address: [address] [id number] Performed By: #### 5 8410-2 ####[facility] LABORATORYCLIA [id number] [place] [id number] [facility] WBC (Bld) [#/Vol] 6.75 10*3/uL Normal 3.70-11.00 [facility] Comment on above: Order Comment: Specdell men Type: BLOOD SPECIMENOrdering Facility: [facility] Address: [address] [place] [id number] Performed By: #### 5 8410-2 ####[facility] LABORATORYCLIA [id number] [place] [id number] [facility] CONSULTon 01-27-2024 CONSULT HNO ID: [id number] Author: ZAK MENDOZA MD Service: Electrophysiology Author Type: Physician Type: Consults Filed: 01/27/2024 10:59 Note Text: CONSULT: CARDIOLOGY SERVICE SERVICE DATE: 01/27/2024 SERVICE TIME: 9:30 am CONSULTING PHYSICIAN: Zak Mendoza PCP: Bharat Coronado MD ATTENDING: Nandini Pina MD REASON FOR CONSULT: AF RVR Subjective CHIEF COMPLAINT: Atrial arrhythmia [I49.8] HISTORY OF PRESENT ILLNESS: Mr. Finch is a 58 year old male with PMH significant for HTN, HLD, CAD s/p CABG x 3 (11/2008) and multiple PCI's, ALICIA on BiPAP, SSS s/p DC PPM, HFpEF(EF 50%), persistent AF s/p cryo PVI (11/12/23) who presents with atrial fibrillation RVR. Patient has a known history of atrial fibrillation, diagnosed 2 to 3 years prior. He has been on multiple antiarrhythmics in the past including dronedarone, which was unsuccessful in maintaining sinus rhythm, amiodarone which she was not able to tolerate. He underwent pacemaker implant in April 2022 for sick sinus syndrome. His last cardioversion was in August 2023, however had ERAF and was referred to EP for further evaluation. He underwent cryo PVI on 11/12/2023, from review of notes procedure was complicated and required use of multiple balloons due to isolation. He was discharged the next day after PVI and his Toprol-XL was reduced to 100 mg daily. This was further reduced to 50 mg daily in December. He has been doing well since then but developed intermittent palpitations over the past 4 to 5 days with chest discomfort. He reports he has been taking his Eliquis only once in the morning for the past few weeks, as he was getting frequent bruising. 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 Patient was seen in the [facility] and transferred to [facility] for EP evaluation. 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 S/p CABG x3v 12/02/2008; stents 10/26/2018 Atrial fibrillation (HCC) Awareness under anesthesia Blood in 2022 CHF (congestive heart failure) (HCC) Coronary artery disease Dyspnea on exertion Erectile dysfunction Essential hypertension History of cardioversion History of coronary artery bypass surgery 12/02/2008 History of coronary artery stent placement 08/19/2023 PCI-KAREN-OM2 w/ 2.5 x 16 mm Synergy and KAREN-Sequential SVG-OM2 and LPDA w/ 4.0 x 12 mm Synergy Stent 10/26/18, KAREN Mid SVG to OM using Clio Kinney 3.0x15 mm 08/19/23 HLD (hyperlipidemia) 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 09/10/2023 Nonsustained paroxysmal ventricular tachycardia (HCC) ALICIA treated with BiPAP complaint Pacemaker 04/2022 for bradley/[facility]S [facility] [phone] PAF (paroxysmal atrial fibrillation) (HCC) Palpitations Persistent atrial fibrillation (HCC) 02/27/2022 Presence of cardiac pacemaker 06/07/2022 S/P CABG x 3 Sick sinus syndrome (HCC) Status post catheter ablation of atrial fibrillation balloon catheter cryoablation/PVAI for atrial fibrillation 11/12/2023 Tachy-bradley syndrome (HCC) PAST SURGICAL HISTORY Procedure Laterality Date AFIB ABLATION/PULM VEIN ISOLATION 11/12/2023 cryoballoon catheter ablation/PVAI; very challenging PVs anatomy (see report) [facility] Dr. Hughes BASIC PACEMAKER DUAL CHAMBER Left 05/10/2022 SJ/Ulloa dual-chamber pacemaker system; [facility], Dr. 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 Elizabeth Schreiber PAST SURGICAL HISTORY OF Left 05/24/2022 Tear duct surgery for left eye PCI/STENT 2018 PCI to KAREN-OM2 w/2.5x16mm synergy and KAREN-Sequential SVG-OM2 and LPDA w/ 4.0x12mm synergy stent PT [facility] 08/19/2023 REPAIR ROTATOR CUFF,ACUTE Left JOSE ALBERTO 12/14/2021 TONSILLECTOMY AND ADENOIDECTOMY FAMILY HISTORY Problem Relation Age of Onset Diabetes Mother Ischemic Heart Disease Father Diabetes Father Cancer Father other (brain aneurysm rupture) Brother Social History Tobacco Use Smoking status: Never Smokeless tobacco: Never Vaping Use Vaping status: Never Used Substance Use Topics Alcohol use: Not Currently Comment: few times a month Drug use: Not Currently Types: Marijuana Prior to Admission Medications Prescriptions Last Dose Informant Patient Reported? Taking? ELIQUIS 5 mg tab(s) Yes Yes Sig: Take 1 tablet by mouth every 12 hours 6am/6pm. HYDROcodone-acetaminoph en (NORCO) 5-325 mg per tablet Yes Yes Sig: Take 1 tablet by mouth twice daily as needed. albuterol HFA (VENTOLIN HFA) 90 mcg/actuation inhaler No No Sig: Inhale 2 Puffs as instructed every 4 hours as needed for (more content not included)... Normal [facility] ECG COMPLETEon 01-27-2024 ECG COMPLETE Ventricular Rate : 6 1 BPM Atrial Rate : 61 BPM P-R Interval : 220 ms QRS Duration : 102 ms Q-T Interval : 444 ms QTC Calculation(Bazett) : 446 ms Calculated P Foster : 93 degrees Calculated R Foster : 73 degrees Calculated T Foster : -65 degrees Atrial-paced rhythm with prolonged AV conduction WITH PREMATURE ATRIAL COMPLEXES RSR' OR QR PATTERN IN V1 SUGGESTS RIGHT VENTRICULAR CONDUCTION DELAY T WAVE ABNORMALITY, CONSIDER INFERIOR ISCHEMIA ABNORMAL ECG WHEN COMPARED WITH ECG OF 26-Jan-2024 18:19, ELECTRONIC ATRIAL PACEMAKER HAS REPLACED ATRIAL FIBRILLATION VENT. RATE HAS DECREASED by 82 bpm Confirmed by MD REYNOSO VINAY ([id number]) on 01/28/2024 1:46:56 PM NAME : BHARAT FINCH PID : [id number] : 1965 Gender : Male Race : ORD : [id number] Procedure Date : Jan 27 2024 14:06:58 Edit Date : Jan 28 2024 13:47:00 Diagnosis: Atrial-paced rhythm with prolonged AV conduction WITH PREMATURE ATRIAL COMPLEXES RSR' OR QR PATTERN IN V1 SUGGESTS RIGHT VENTRICULAR CONDUCTION DELAY T WAVE ABNORMALITY, CONSIDER INFERIOR ISCHEMIA ABNORMAL ECG WHEN COMPARED WITH ECG OF 26-Jan-2024 18:19, ELECTRONIC ATRIAL PACEMAKER HAS REPLACED ATRIAL FIBRILLATION VENT. RATE HAS DECREASED by 82 bpm Confirmed by MD REYNOSO VINAY ([id number]) on 01/28/2024 1:46:56 PM Test Reason : Post-OP Location : 200 : [place] [address] Overread By : MD REYNOSO VINAY Edited By : MD REYNOSO VINAY Referred By : GLORIA BLANCHARD Acquired by : JACQUELINE CAMILO [facility] ECHO TRANSESOPHAGEALon 01-26 ECHO TRANSESOPHAGEAL Echocardiography Report: Transesophageal Echo [facility] Date of service: 01/27/2024 11:55:09 AM [facility] Ordering physician: ZAK MENDOZA Indication: Pre Cardioversion, Pre AF Ablation Technologist: Nae Josue [facility] Interpreting physician: Betty Ochoa MD PATIENT: Name: BHARAT FINCH : 1965 Age: 58 years Gender: M Primary rhythm: atrial fib. Height: 175.30 cm BSA: 2.33 m Weight: 111.90 kg BMI: 36.4 kg/m Pre Heart rate 80 bpm Blood pressure 75/110 mmHg Agitated saline was administered to rule out shunt. Color Doppler was utilized to interrogate the cardiac valves assessed and spectral Doppler was utilized to determine the flow velocities and pressure gradients reported in this exam. Medications Total Dose Agitated Saline 10.00 ml Hurricaine x 1, Propofol 260 mg Exam performed under moderate sedation with continuous ECG, pulse oximetry and cardiopulmonary monitoring by nursing, overseen by the performing physician(s), for an intraservice time of 11 min. (Stop Time: 12:24 pm) No specimens collected. No blood loss. The interpreting physician was present for and actively participated in the JOSE ALBERTO procedure. MEASUREMENTS: Value Normal Max aortic dimension 2.2 cm Ao < 3.8 Ejection Fraction 40 % (visual est.) EF > 52 FINDINGS: LEFT VENTRICLE The left ventricle is normal in size. Left ventricular systolic function is moderately decreased. RIGHT VENTRICLE The right ventricle is normal in size. Right ventricular systolic function is low normal. LEFT ATRIUM The left atrial cavity is mildly dilated. There is mild spontaneous echo contrast noted. The peak emptying velocity from the left atrial appendage is 28.0 cm/s. There is no left atrial appendage thrombus. Pulmonary Veins: The pulmonary venous pattern showed blunted systolic flow. RIGHT ATRIUM The right atrial cavity is normal in size. MITRAL VALVE There is trace (trace - 1+) mitral valve regurgitation. TRICUSPID VALVE There is trace tricuspid valve regurgitation. AORTIC VALVE There is no aortic valve regurgitation. Tricuspid aortic valve. There is mild thickening. PULMONIC VALVE There is no pulmonic valve regurgitation. AORTA The visualized aorta is normal in size. Measurements - Mid ascending aorta 2.2 cm. INTERATRIAL SEPTUM There is no evidence of intracardiac shunting as detected by Doppler and agitated saline contrast. PERICARDIUM There is a trivial pericardial effusion. CONCLUSIONS: - Exam indication: Pre Cardioversion, Pre AF Ablation - The left ventricle is normal in size. Left ventricular systolic function is moderately decreased. EF = 40 5% (visual est.) - The right ventricle is normal in size. Right ventricular systolic function is low normal. - The left atrial cavity is mildly dilated. - There is no left atrial appendage thrombus. - The patient has not had a prior CC echocardiographic exam for comparison. * * * Final * * * CC [employer] Image : [id number] ISUID Normal [facility] HIGH SENSITIVITY TROPONIN To n 01-27-2024 Troponin T.cardiac High sensitivity method [Mass/Vol] 164 ng/L High <12 [facility] Comment on above: Order Comment: Speci men Type: BLOOD SPECIMENOrdering Facility: [facility] Address: [address] [place], [place] [address] Performed By: #### H STNT ####[facility] CARMELCL[facility] [id number] [place] [id number] [facility] Magnesium SerPl-mCncon 01-26 Magnesium [Mass/Vol] 1.8 mg/dL Normal 1.7-2.3 [facility] Comment on above: Order Comment: Speci men Type: BLOOD SPECIMENOrdering Facility: [facility] Address: [address] [place] [address] Performed By: #### 2 4321-2, 3016-3, 83518-3 ####[facility] LABORATORYCLIA [id number] [place] [id number] [facility] [place] TSH SerPl-aCncon 01-27-2024 TSH Qn 1.630 m[IU]/L Normal 0.270-4.200 [facility] Comment on above: Order Comment: Speci men Type: BLOOD SPECIMENOrdering Facility: [facility] Address: [address] [place] [address] Performed By: #### 2 4321-2, 3016-3, 95180-1 ####[facility] [id number] [address] OF [facility] ECG COMPLETEon 01-26-2024 ECG COMPLETE Ventricular Rate : 1 43 BPM QRS Duration : 96 ms Q-T Interval : 276 ms QTC Calculation(Bazett) : 425 ms Calculated R Foster : 71 degrees Calculated T Foster : -47 degrees ATRIAL FIBRILLATION WITH RAPID VENTRICULAR RESPONSE INCOMPLETE RIGHT BUNDLE BRANCH BLOCK ABNORMAL QRS-T ANGLE, CONSIDER PRIMARY T WAVE ABNORMALITY ABNORMAL ECG WHEN COMPARED WITH ECG OF 13-Nov-2023 08:23, ATRIAL FIBRILLATION HAS REPLACED ELECTRONIC VENTRICULAR PACEMAKER VENT. RATE HAS INCREASED by 55 bpm Confirmed by MD EDGARDO, JORGE ([id number]) on 01/27/2024 8:57:50 AM NAME : BHARAT FINCH PID : [id number] : 1965 Gender : Male Race : ORD : [id number] Procedure Date : Jan 26 2024 18:19:44 Edit Date : Jan 27 2024 08:58:08 Diagnosis: ATRIAL FIBRILLATION WITH RAPID VENTRICULAR RESPONSE INCOMPLETE RIGHT BUNDLE BRANCH BLOCK ABNORMAL QRS-T ANGLE, CONSIDER PRIMARY T WAVE ABNORMALITY ABNORMAL ECG WHEN COMPARED WITH ECG OF 13-Nov-2023 08:23, ATRIAL FIBRILLATION HAS REPLACED ELECTRONIC VENTRICULAR PACEMAKER VENT. RATE HAS INCREASED by 55 bpm Confirmed by MD REYNOSO VINAY ([id number]) on 01/27/2024 8:57:50 AM Test Reason : Arrhythmia Location : [address] : [place] [address] Overread By : MD REYNOSO VINAY Edited By : MD REYNOSO VINAY Referred By : GLORIA BLANCHARD Acquired by : RITESH LEUNG Normal [facility] HIGH SENSITIVITY TROPONIN To n 01-26-2024 Troponin T.cardiac High sensitivity method [Mass/Vol] 145 ng/L High <12 [facility] Comment on above: Order Comment: Speci men Type: BLOOD SPECIMENOrdering Facility: [facility] Address: [address] [place] [address] Performed By: #### H STNT ####[facility] LABORATORYCLIA [id number] [address] Troponin T.cardiac High sensitivity method [Mass/Vol] 117 ng/L High <12 [facility] Comment on above: Order Comment: Speci men Type: BLOOD SPECIMENOrdering Facility: [facility] Address: [address] [place] [address] Performed By: #### H STNT ####[facility] LABORATORYCLIA [id number] [address] [place] HISTORY PHYSICALon HISTORY PHYSICAL HNO ID: [id number] Author: BORIS MEDINA MD Service: Hospital Medicine Author Type: Physician Type: H&P Filed: 01/26/2024 19:26 Note Text: DEPARTMENT OF HOSPITAL MEDICINE HISTORY AND PHYSICAL EXAM SERVICE DATE: 01/26/2024 SERVICE TIME: 5:32 PM Primary Care Physician: Bharat Coronado MD NIGHT AND WEEKEND COVERAGE: From 7am - 7pm, please call Team color After 7pm, please call cross cover pager #[phone] Subjective CHIEF COMPLAINT: Palpitations HPI: This is a 58 year old male with history of SSS s/p pacemaker (2022), persistent atrial fibrillation (s/p catheter ablation 11/12/23), CAD (prior multiple PCI and CABG), HFpEF (50% on echo 06/2023), HLD, obesity, ALICIA, who presents with intermittent palpitations for past 4-5 days. This is associated with intermittent chest discomfort that radiates across the right side and down his right arm. No chest pain currently. He had been doing quite well since his ablation. His home Toprol dose was recently reduced from 100->50 mg daily in December. He denies other complaints. Has been compliant with all home meds including Eliquis, took this am. Labs at outside hospital significant for Cr 1.25 (appears to be baseline), glucose 227, troponin I-HS 557 CXR (at [facility]) no acute process 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 S/p CABG x3v 12/02/2008; stents 10/26/2018 Atrial fibrillation (HCC) Awareness under anesthesia Blood in semen 2022 CHF (congestive heart failure) ([facility]) Coronary artery disease Dyspnea on exertion Erectile dysfunction Essential hypertension History of cardioversion History of coronary artery bypass surgery 12/02/2008 History of coronary artery stent placement 08/19/2023 PCI-KAREN-OM2 w/ 2.5 x 16 mm Synergy and KAREN-Sequential SVG-OM2 and LPDA w/ 4.0 x 12 mm Synergy Stent 10/26/18, KAREN Mid SVG to OM using Clio Kinney 3.0x15 mm 08/19/23 HLD (hyperlipidemia) 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 09/10/2023 Nonsustained paroxysmal ventricular tachycardia (HCC) ALICIA treated with BiPAP complaint Pacemaker 04/2022 for bradley/SSS [facility] [phone] PAF (paroxysmal atrial fibrillation) (HCC) Palpitations Persistent atrial fibrillation (HCC) 02/27/2022 Presence of cardiac pacemaker 06/07/2022 S/P CABG x 3 Sick sinus syndrome (HCC) Status post catheter ablation of atrial fibrillation balloon catheter cryoablation/PVAI for atrial fibrillation 11/12/2023 Tachy-bradley syndrome (HCC) PAST SURGICAL HISTORY Procedure Laterality Date AFIB ABLATION/PULM VEIN ISOLATION 11/12/2023 cryoballoon catheter ablation/PVAI; very challenging PVs anatomy (see report) [facility] Dr. Hughes BASIC PACEMAKER DUAL CHAMBER Left 05/10/2022 SJM/Ulloa dual-chamber pacemaker system; [facility], Dr. 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 Elizabeth Schreiber PAST SURGICAL HISTORY OF Left 05/24/2022 Tear duct surgery for left eye PCI/STENT 2018 PCI to KAREN-OM2 w/2.5x16mm synergy and KAREN-Sequential SVG-OM2 and LPDA w/ 4.0x12mm synergy stent PT [facility] 08/19/2023 REPAIR ROTATOR CUFF,ACUTE Left JOSE ALBERTO 12/14/2021 TONSILLECTOMY AND ADENOIDECTOMY FAMILY HISTORY Problem Relation Age of Onset Diabetes Mother Ischemic Heart Disease Father Diabetes Father Cancer Father other (brain aneurysm rupture) Brother Social History Tobacco Use Smoking status: Never Smokeless tobacco: Never Vaping Use Vaping status: Never Used Substance Use Topics Alcohol use: Not Currently Comment: few times a month Drug use: Not Currently Types: Marijuana HOME MEDICATIONS: Prior to Admission Medications Prescriptions Last Dose Informant Patient Reported? Taking? ELIQUIS 5 mg tab(s) Yes Yes Sig: Take 1 tablet by mouth every 12 hours 6am/6pm. HYDROcodone-acetaminoph en (NORCO) 5-325 mg per tablet Yes Yes Sig: Take 1 tablet by mouth twice daily as needed. albuterol HFA (VENTOLIN HFA) 90 mcg/actuation inhaler No No Sig: Inhale 2 Puffs as instructed every 4 hours as needed for wheezing/shortness of breath. atorvastatin (LIPITOR) 40 mg tablet Yes Yes Sig: Take 40 mg by mouth daily at bedtime. clopidogrel (PLAVIX) 75 mg tablet Yes No Sig: Take 75 mg by mouth once daily. furosemide (LASIX) 40 mg tablet Yes Yes Sig: Take 1 tablet by mouth two times a day. metoprolol succinate ER (TOPROL XL) 100 mg No Yes Sig: Take 1 tablet by mouth once daily. potassium chloride ER (KLOR-CON) 20 mEq tablet Yes Yes Sig: Take 20 mEq by mouth once daily. testosterone (ANDROGEL) 50 mg / 5 g (1% (more content not included)... Normal [facility] 12-23-2023 [facility] BHAR[facility] FINCH ([id number]) 1965 M Date Time Provider Department 12/23/23 BHARAT CORONADO [facility] During your visit today, we recorded the following information about you: Tc Evans MA 12/23/2023 1:34 PM Signed Type of form: Medical Necessity for PAP Device AND Supplies Form received via fax When form is completed, Fax form to [phone] [facility]. Form has been forwarded to Providers office. ESTHER Gonzalez Jesse, APRN.MERCHANDISE FLOW TEAM LEADER 12/23/2023 1:46 PM Signed Form signed Wily Mcghee APRN.Nae Cortes LPN 12/23/2023 2:12 PM Signed Form faxed to number provided on form Allergies As of Date: 12/23/2023 Noted Allergy Reaction CHLORHEXIDINE 06/26/2023 2 - Rash EMPAGLIFLOZIN 09/04/2023 14 - Other: See Comments Comments: Bad yeast infection ISOPROPYL ALCOHOL 06/26/2023 9 - Itching Date Reviewed: 11/12/2023 Reviewed by: Ca Arana, RN - Fully Assessed Reason for Visit: Forms [913] Prescriptions as of 12/23/2023 - metoprolol succinate ER (TOPROL XL) 100 mg Take 1 tablet by mouth once daily. - testosterone (ANDROGEL) 50 mg / 5 g (1%) Apply 1 Packet as directed once daily for 90 days. - clopidogrel (PLAVIX) 75 mg tablet Take 75 mg by mouth once daily. - potassium chloride ER (KLOR-CON) 20 mEq tablet Take 20 mEq by mouth once daily. - atorvastatin (LIPITOR) 40 mg tablet Take 40 mg by mouth daily at bedtime. - albuterol HFA (VENTOLIN HFA) 90 mcg/actuation inhaler Inhale 2 Puffs as instructed every 4 hours as needed for wheezing/shortness of breath. - ELIQUIS 5 mg tab(s) Take 1 tablet by mouth every 12 hours 6am/6pm. - tiZANidine (ZANAFLEX) 4 mg tablet Take 4 mg by mouth once daily as needed (muscle spasm). - HYDROcodone-acetaminoph en (NORCO) 5-325 mg per tablet Take 1 tablet by mouth twice daily as needed. - furosemide (LASIX) 40 mg tablet Take 1 tablet by mouth two times a day. Problem List As Of Date 12/23/2023 Noted Resolved Injury of neck [S19.9XXA] 06/28/2021 Hypogonadism in male [E29.1] 06/28/2021 Atherosclerotic heart disease of rampart coronar*06/28/2021 ED (erectile dysfunction) of organic origin [N5*06/28/2021 Preop examination [Z01.818] 03/18/2023 Renal calculus, right [N20.0] 03/18/2023 Essential (primary) hypertension [I10] 02/05/2021 Diagnosed: 03/18/2023 HLD (hyperlipidemia) [E78.5] 03/18/2023 Diagnosed: 03/18/2023 History of coronary artery bypass surgery [Z95.*12/02/2008 Diagnosed: 03/18/2023 ALICIA treated with BiPAP [G47.33] 03/18/2023 Diagnosed: 03/18/2023 Presence of cardiac pacemaker [Z95.0] 06/07/2022 Diagnosed: 03/18/2023 Persistent atrial fibrillation (HCC) [I48.19] 02/27/2022 Diagnosed: 03/18/2023 CHF (congestive heart failure) (HCC) [I50.9] 03/18/2023 Diagnosed: 03/18/2023 Hypertensive heart disease with heart failure (*08/08/2023 Opioid dependence (HCC) [F11.20] 01/02/2023 Mild tricuspid insufficiency [I07.1] 09/10/2023 Nonsustained paroxysmal ventricular tachycardia*09/10/2023 prison current use of anticoagulant therapy *09/10/2023 Leg edema [R60.0] 09/10/2023 History of cardioversion [Z92.89] 12/14/2021 Fatigue [R53.83] 09/10/2023 Dyspnea on exertion [R06.09] 09/10/2023 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] 02/05/2021 Cervical myelopathy (HCC) [G95.9] 09/10/2023 Bradycardia [R00.1] 09/10/2023 Palpitations [R00.2] 11/26/2021 Spinal stenosis of lumbar region [M48.061] 02/17/2020 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] 09/10/2023 Atrial fibrillation with rapid ventricular resp*09/10/2023 History of coronary artery stent placement [Z95*08/19/2023 At risk for stroke [Z91.89] 09/10/2023 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 [Z*09/10/2023 11/12/2023 prison current use of amiodarone [Z79.899] 09/10/2023 11/12/2023 Obesity, Class II, BMI 35-39.9 [E66.9] 09/12/2023 Coronary artery disease [I25.10] 11/12/2023 Status post catheter ablation of atrial fibrill*11/12/2023 Encounter Status:Closed by NAE CERON on 12/23/23 [facility] Kyle 11-28-2023 KORINAN Telephone (AGCARDPOB ) BHARAT FINCH ([id number]) 1965 M Date Time Provider Department 11/28/23 RADHA HUGHES During your visit today, we recorded the following information about you: Juan Ugarte 11/28/2023 1:32 PM Signed Post PVAI orders pended for signature Tyesha Garcia RN 01/01/2024 3:02 PM Signed Mrs calls to ask if pt may have echo and monitor done at [facility]? ANNE Inman Emily 01/01/2024 3:50 PM Signed That is fine, just not before 02/11 and results will need to be faxed over. They do still need to come to [place] for follow up AFTER testing is done. Lani Felix RN 02/17/2024 1:26 PM Signed Called and left for Bharat Finch to return call regarding testing ordered prior to his appt on 02/20/24. We received fax from [facility] stating pt wore monitor but connection was bad, and they called pt to re-do monitor but pt was unable to complete due to work schedule. Please ask pt if he was able to reschedule Holter monitor and if he had echo completed. May need to reschedule appt. 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 - potassium chloride ER (KLOR-CON) 20 mEq tablet Take 1 tablet by mouth two times a day. - metoprolol succinate ER (TOPROL XL) 100 mg Take 1 tablet by mouth once daily. - atorvastatin (LIPITOR) 40 mg tablet Take 40 mg by mouth daily at bedtime. - ELIQUIS 5 mg tab(s) Take 1 tablet by mouth every 12 hours 6am/6pm. - tiZANidine (ZANAFLEX) 4 mg tablet Take 4 mg by mouth once daily as needed (muscle spasm). - HYDROcodone-acetaminoph en (NORCO) 5-325 mg per tablet Take 1 tablet by mouth twice daily as needed. - furosemide (LASIX) 40 mg tablet Take 1 tablet by mouth two times a day. Problem List As Of Date 11/28/2023 Noted Resolved Injury of neck [S19.9XXA] 06/28/2021 Hypogonadism in male [E29.1] 06/28/2021 Atherosclerotic heart disease of rampart coronar*06/28/2021 ED (erectile dysfunction) of organic origin [N5*06/28/2021 Preop examination [Z01.818] 03/18/2023 Renal calculus, right [N20.0] 03/18/2023 Essential (primary) hypertension [I10] 02/05/2021 Diagnosed: 03/18/2023 HLD (hyperlipidemia) [E78.5] 03/18/2023 Diagnosed: 03/18/2023 History of coronary artery bypass surgery [Z95.*12/02/2008 Diagnosed: 03/18/2023 ALICIA treated with BiPAP [G47.33] 03/18/2023 Diagnosed: 03/18/2023 Presence of cardiac pacemaker [Z95.0] 06/07/2022 Diagnosed: 03/18/2023 Persistent atrial fibrillation (HCC) [I48.19] 02/27/2022 Diagnosed: 03/18/2023 CHF (congestive heart failure) (HCC) [I50.9] 03/18/2023 Diagnosed: 03/18/2023 Hypertensive heart disease with heart failure (*08/08/2023 Opioid dependence (HCC) [F11.20] 01/02/2023 Mild tricuspid insufficiency [I07.1] 09/10/2023 Nonsustained paroxysmal ventricular tachycardia*09/10/2023 prison current use of anticoagulant therapy *09/10/2023 Leg edema [R60.0] 09/10/2023 History of cardioversion [Z92.89] 12/14/2021 Fatigue [R53.83] 09/10/2023 Dyspnea on exertion [R06.09] 09/10/2023 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] 02/05/2021 Cervical myelopathy (HCC) [G95.9] 09/10/2023 Bradycardia [R00.1] 09/10/2023 Palpitations [R00.2] 11/26/2021 Spinal stenosis of lumbar region [M48.061] 02/17/2020 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] 09/10/2023 Atrial fibrillation with rapid ventricular resp*09/10/2023 History of coronary artery stent placement [Z95*08/19/2023 At risk for stroke [Z91.89] 09/10/2023 prison current use of antiarrhythmic drug [Z*09/10/2023 11/12/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 Enriquez's office. She was made aware of patient's recent cryo ablation with Dr. Hughes on 11/12/2023. We discussed patient's creatinine was slightly elevated on 11/13/2023 at 1.32 compared to prior days level 1.17. I advised patient should have a electrolyte panel rechecked in 1 week. Rae RODRÍGUEZ verbalized understanding. Davonte Augustin APRN.MERCHANDISE FLOW TEAM LEADER November 14, 2023 1:48 PM Allergies As of Date: 11/14/2023 Noted Allergy Reaction CHLORHEXIDINE 06/26/2023 2 - Rash EMPAGLIFLOZIN 09/04/2023 14 - Other: See Comments Comments: Bad yeast infection ISOPROPYL ALCOHOL 06/26/2023 9 - Itching Date Reviewed: 11/12/2023 Reviewed by: Ca Arana, ANNE - Fully Assessed Reason for Visit: Results [95] Prescriptions as of 11/14/2023 - metoprolol succinate ER (TOPROL XL) 100 mg Take 1 tablet by mouth once daily. - testosterone (ANDROGEL) 50 mg / 5 g (1%) Apply 1 Packet as directed once daily for 90 days. - clopidogrel (PLAVIX) 75 mg tablet Take 75 mg by mouth once daily. - potassium chloride ER (KLOR-CON) 20 mEq tablet Take 20 mEq by mouth once daily. - atorvastatin (LIPITOR) 40 mg tablet Take 40 mg by mouth daily at bedtime. - albuterol HFA (VENTOLIN HFA) 90 mcg/actuation inhaler Inhale 2 Puffs as instructed every 4 hours as needed for wheezing/shortness of breath. - ELIQUIS 5 mg tab(s) Take 1 tablet by mouth every 12 hours 6am/6pm. - tiZANidine (ZANAFLEX) 4 mg tablet Take 4 mg by mouth once daily as needed (muscle spasm). - HYDROcodone-acetaminoph en (NORCO) 5-325 mg per tablet Take 1 tablet by mouth twice daily as needed. - furosemide (LASIX) 40 mg tablet Take 1 tablet by mouth two times a day. Problem List As Of Date 11/14/2023 Noted Resolved Injury of neck [S19.9XXA] 06/28/2021 Hypogonadism in male [E29.1] 06/28/2021 Atherosclerotic heart disease of rampart coronar*06/28/2021 ED (erectile dysfunction) of organic origin [N5*06/28/2021 Preop examination [Z01.818] 03/18/2023 Renal calculus, right [N20.0] 03/18/2023 Essential (primary) hypertension [I10] 02/05/2021 HLD (hyperlipidemia) [E78.5] 03/18/2023 History of coronary artery bypass surgery [Z95.*12/02/2008 ALICIA treated with BiPAP [G47.33] 03/18/2023 Presence of cardiac pacemaker [Z95.0] 06/07/2022 Persistent atrial fibrillation (HCC) [I48.19] 02/27/2022 CHF (congestive heart failure) (HCC) [I50.9] 03/18/2023 Hypertensive heart disease with heart failure (*08/08/2023 Opioid dependence (HCC) [F11.20] 01/02/2023 Mild tricuspid insufficiency [I07.1] 09/10/2023 Nonsustained paroxysmal ventricular tachycardia*09/10/2023 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 *09/10/2023 Leg edema [R60.0] 09/10/2023 History of cardioversion [Z92.89] 12/14/2021 Fatigue [R53.83] 09/10/2023 Dyspnea on exertion [R06.09] 09/10/2023 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] 02/05/2021 Cervical myelopathy (HCC) [G95.9] 09/10/2023 Bradycardia [R00.1] 09/10/2023 Palpitations [R00.2] 11/26/2021 Spinal stenosis of lumbar region [M48.061] 02/17/2020 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] 09/10/2023 Atrial fibrillation with rapid ventricular resp*09/10/2023 History of coronary artery stent placement [Z95*08/19/2023 At risk for stroke [Z91.89] 09/10/2023 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 [Z*09/10/2023 11/12/2023 prison current use of amiodarone [Z79.899] 09/10/2023 11/12/2023 Obesity, Class II, BMI 35-39.9 [E66.9] 09/12/2023 Coronary artery disease [I25.10] 11/12/2023 Status post catheter ablation of atrial fibrill*11/12/2023 Encounter Status:Closed by DAVONTE AUGUSTIN on 11/14/23 Normal [facility] Basic metabolic 2000 panelon 11-13-2023 Anion gap [Moles/Vol] 13 mmol/L Normal 8-15 [facility] Comment on above: Order Comment: Speci men Type: BLOOD SPECIMENOrdering Facility: [facility] Address: [address] [place] [address] Performed By: #### 2 4321-2 ####[facility] LABORATORYCLIA [id number] [place] [address] [place] Calcium [Mass/Vol] 9.2 mg/dL Normal 8.5-10.2 [facility] Comment on above: Order Comment: Speci men Type: BLOOD SPECIMENOrdering Facility: [facility] Address: [address] [place] [address] Performed By: #### 2 4321-2 ####[facility] LABORATORYCLIA [id number] [place] [address] [place] Chloride [Moles/Vol] 101 mmol/L Normal 98-107 [facility] Comment on above: Order Comment: Speci men Type: BLOOD SPECIMENOrdering Facility: [facility] Address: [address] [place] [address] Performed By: #### 2 4321-2 ####[facility] LABORATORYCLIA [id number] [place] [address] [place] CO2 [Moles/Vol] 23 mmol/L Normal 22-30 [facility] Comment on above: Order Comment: Speci men Type: BLOOD SPECIMENOrdering Facility: [facility] Address: [address] [place] [address] Performed By: #### 2 4321-2 ####[facility] LABORATORYCLIA [id number] [place] [id number] [place] Creatinine [Mass/Vol] 1.32 mg/dL High 0.73-1.22 [facility] Comment on above: Order Comment: Berna jaison Type: BLOOD SPECIMENOrdering Facility: [facility] Address: [address] [place] [address] Performed By: #### 2 4321-2 ####[facility] LABORATORYCLIA [id number] [address] Creatinine and Glomerular filtration rate.predicted panel (S/P/Bld) 63 mL/min/1.73m??? Normal >=60 [facility] Comment on above: Order Comment: Berna jaison Type: BLOOD SPECIMENOrdering Facility: [facility] Address: [address] [place] [address] Result Comment: Agata mated Glomerular Filtration Rate (eGFR) is calculated using the 2020 CKD-EPI creatinine equation. This equation utilizes serum creatinine, sex, and age as parameters. The creatinine assay has traceable calibration to isotope dilution-mass spectrometry. Refer to KDIGO guidelines for clinical interpretation. In patients with unstable renal function, e.g. those with acute kidney injury, the eGFR may not accurately reflect actual GFR. Performed By: #### 2 4321-2 ####[facility] LABORATORYCLIA [id number] [place] [id number] [place] Glucose [Mass/Vol] 165 mg/dL High 74-99 [facility] Comment on above: Order Comment: Berna blackwood Type: BLOOD SPECIMENOrdering Facility: [facility] Address: [address] [place] [address] Result Comment: The [place] Diabetes Association (ADA) provides guidance for cutoff values for fasting glucose and random glucose. The ADA defines fasting as no caloric intake for at least 8 hours. Fasting plasma glucose results between 100 to 125 mg/dL indicate increased risk for diabetes (prediabetes). Fasting plasma glucose results greater than or equal to 126 mg/dL meet the criteria for diagnosis of diabetes. In the absence of unequivocal hyperglycemia, results should be confirmed by repeat testing. In a patient with classic symptoms of hyperglycemia or hyperglycemic crisis, random plasma glucose results greater than or equal to 200 mg/dL meet the criteria for diagnosis of diabetes. Reference: Standards of Medical Care in Diabetes 2016, [place] [employer] Association. Diabetes Care. 2016.39(Suppl 1). Performed By: #### 2 4321-2 ####[facility] LABORATORYCLIA [id number] [address] Potassium [Moles/Vol] 4.5 mmol/L Normal 3.7-5.1 [facility] Comment on above: Order Comment: Berna blackwood Type: BLOOD SPECIMENOrdering Facility: [facility] Address: [address] [place] [address] Performed By: #### 2 4321-2 ####[facility] [id number] [address] Sodium [Moles/Vol] 137 mmol/L Normal 136-144 [facility] Comment on above: Order Comment: Berna blackwood Type: BLOOD SPECIMENOrdering Facility: [facility] Address: [address] [place] [address] Performed By: #### 2 4321-2 ####[facility] [id number] [address] Urea nitrogen [Mass/Vol] 22 mg/dL Normal 9-24 [facility] Comment on above: Order Comment: Jo Anni jaison Type: BLOOD SPECIMENOrdering Facility: [facility] Address: [address] [place] [address] Performed By: #### 2 4321-2 ####[facility] LABORATORYCLIA [id number] [address] CBC panel Auto (Bld)on 11-12 Erythrocyte distribution width (RBC) [Ratio] 15.6 % High 11.5-15.0 [facility] Comment on above: Order Comment: Jo Anni men Type: BLOOD SPECIMENOrdering Facility: [facility] Address: [address] [place] [address] Performed By: #### 5 8410-2 ####[facility] LABORATORYCLIA [id number] [address] Hematocrit (Bld) [Volume fraction] 42.0 % Normal 39.0-51.0 [facility] Comment on above: Order Comment: Speci men Type: BLOOD SPECIMENOrdering Facility: [facility] Address: [address] [place] [address] Performed By: #### 5 8410-2 ####[facility] LABORATORYCLIA [id number] [address] OF [facility] Hemoglobin (Bld) [Mass/Vol] 13.6 g/dL Normal 13.0-17.0 [facility] Comment on above: Order Comment: Speci men Type: BLOOD SPECIMENOrdering Facility: [facility] Address: [address] [place] [address] Performed By: #### 5 8410-2 ####[facility] LABORATORYCLIA [id number] [address] MCH (RBC) [Entitic mass] 29.2 pg Normal 26.0-34.0 [facility] Comment on above: Order Comment: Speci men Type: BLOOD SPECIMENOrdering Facility: [facility] Address: [address] [place] [address] Performed By: #### 5 8410-2 ####[facility] LABORATORYCLIA [id number] [address] [place] MCHC (RBC) [Mass/Vol] 32.4 g/dL Normal 30.5-36.0 [facility] Comment on above: Order Comment: Speci men Type: BLOOD SPECIMENOrdering Facility: [facility] Address: [address] [place] [address] Performed By: #### 5 8410-2 ####[facility] LABORATORYCLIA [id number] [address] MCV (RBC) [Entitic vol] 90.3 fL Normal 80.0-100.0 [facility] Comment on above: Order Comment: Speci men Type: BLOOD SPECIMENOrdering Facility: [facility] Address: [address] [place] [address] Performed By: #### 5 8410-2 ####[facility] LABORATORYCLIA [id number] [place] [address] [place] Nucleated RBC (Bld) [#/Vol] 10*3/uL Normal <0.01 [facility] Comment on above: Order Comment: Speci men Type: BLOOD SPECIMENOrdering Facility: [facility] Address: [address] [place] [address] Performed By: #### 5 8410-2 ####[facility] LABORATORYCLIA [id number] [place] [address] [place] Platelet mean volume (Bld) [Entitic vol] 11.2 fL Normal 9.0-12.7 [facility] Comment on above: Order Comment: Speci men Type: BLOOD SPECIMENOrdering Facility: [facility] Address: [address] [place] [address] Performed By: #### 5 8410-2 ####[facility] LABORATORYCLIA [id number] [place] [address] [place] Platelets (Bld) [#/Vol] 209 10*3/uL Normal 150-400 [facility] Comment on above: Order Comment: Speci men Type: BLOOD SPECIMENOrdering Facility: [facility] Address: [address] [place] [address] Performed By: #### 5 8410-2 ####[facility] LABORATORYCLIA [id number] [place] [address] [place] RBC (Bld) [#/Vol] 4.65 10*6/uL Normal 4.20-6.00 [facility] Comment on above: Order Comment: Speci men Type: BLOOD SPECIMENOrdering Facility: [facility] Address: [address] [place] [address] Performed By: #### 5 8410-2 ####[facility] LABORATORYCLIA [id number] [place] [address] [place] WBC (Bld) [#/Vol] 11.09 10*3/uL High 3.70-11.00 [facility] Comment on above: Order Comment: Speci men Type: BLOOD SPECIMENOrdering Facility: [facility] Address: [facility] [place] [address] Performed By: #### 5 8410-2 ####[facility] LABORATORYCLIA [id number] [place] [address] [facility] CNDSon 11-13-2023 CNDS HNO ID: [id number] Author: RADHA HUGHES MD Service: Electrophysiology Author Type: Nurse Practitioner Type: Discharge Summary Filed: 11/13/2023 12:26 Note Text: Attestation signed by Radha Hughes MD at 11/13/2023 12:26 PM [facility] Electrophysiology (EP) EP Attending Reviewed case. Agree with evaluation and plan of care as outlined by the SAMPLING THEORY TEACHER, as we discussed. Radha Hughes MD November 13, 2023 12:26 PM DISCHARGE SUMMARY PATIENT NAME: Bharat Finch Code Status: Not on file Highest Readmission Risk Score: 12 The 30 day readmissions risk score is derived from an internally validated risk model which evaluates patient level characteristics, utilization history, medication orders and lab results up until the day of discharge. Patients with a score of 40 or above are considered highest risk for readmission. Specific patient level drivers will be listed at the bottom of the summary. Admission Information Admission Information ADMIT DATE: 11/12/2023 DISCHARGE DATE: 11/13/2023 MY DOCTORS AND MEDICAL TEAM: My Main Hospital Doctor: Radha Hughes MD Primary Care Provider: Bharat Coronado MD My Medical Team Members: Treatment Team: Attending Provider: Radha Hughes MD MY CONDITION AT DISCHARGE: Good REASON I WAS IN THE HOSPITAL: Bharat is a pleasant 58-year-old gentleman with past medical history of persistent atrial fibrillation who underwent cryo PVI with Dr. Hughes on 11/12/2023. Procedure was tolerated well and there were no intra or postoperative complications. Patient's Toprol-XL was reduced to 100 mg daily. He was subsequently discharged without issue on 11/13/2023. 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 No lifting greater than 5-10 pounds for 5-7 days No sexual activity for: 1 week. No strenuous activity, exercise, or sports for 5-7 days, casual walking is fine No walking restrictions Take showers, not baths, until your wound is completely healed Diet Instructions Resume your pre-hospital diet For Pain When You Leave the Hospital Use acetaminophen (Tylenol) as recommended on the bottle Wound/Surgical Site Care Any bruising and bumps should disappear within 3-4 days Avoid lotions or powders Check your wound every day If the bruising expands or the bump enlarges please call your doctor Some bruising, soreness or a small bump under the skin at the inserion site is normal Wash your wound area with mild soap and water daily and gently pat dry with a towel Follow Up Appointments Follow-Up Appointment Dr. Hughes's office will call to schedule the appointment. When: In: Comment - three months Patient/Parents to call for appointment?: No Radha Hughes MD [phone] [facility] [address] PCP Requested Referral Additional Provider to Provider Information: Principal Problem: Status post catheter ablation of atrial fibrillation (POA: Unknown) Assessment AND Plan: Bharat is a 58-year-old gentleman with past medical history including pacemaker, persistent atrial fibrillation, tachybradycardia syndrome, CAD, hypertension, and CHF who underwent cryo PVI with Dr. Hughes on 11/12/2023. Procedure was tolerated well and there were no intra or postop complications. Patient reports feeling significantly better today compared to preablation. He is ambulating in the halls and reports he is no longer short of breath. Adequate urine output. Patient most recently underwent PCI on 08/19/2023. Prior triple bypass in November 2008. Echo from June 2023 revealed normal left ventricle size with systolic function on the lower limit of normal with an EF of 50%. Left atrium noted to be mildly enlarged. There were no significant valvular abnormalities. [id number] of at least 3 secondary to hypertension, CAD, and CHF. Remains anticoagulated on Eliquis twice daily. Additionally on Plavix daily status post recent PCI. Lengthy discussion was had with patient and spouse regarding post ablation restrictions. Topics included no lifting greater than 10 pounds for 1 week, no strenuous activity for 1 week, may shower but do not submerge groin sites underwater until they have healed, no intercourse for 1 week, blanking emmanuel (more content not included)... Normal [facility] ECG COMPLETEon 11-13-2023 ECG COMPLETE Ventricular Rate : 8 8 BPM Atrial Rate : 88 BPM QRS Duration : 150 ms Q-T Interval : 442 ms QTC Calculation(Bazett) : 534 ms Calculated R Foster : -71 degrees Calculated T Foster : 101 degrees Ventricular-paced rhythm WITH OCCASIONAL atrial-paced complexes AND WITH OCCASIONAL PREMATURE VENTRICULAR COMPLEXES ABNORMAL ECG NO PREVIOUS ECGS AVAILABLE Confirmed by MD REYNOSO VINAY ([id number]) on 11/13/2023 5:40:00 PM NAME : BHARAT FINCH PID : [id number] : 1965 Gender : Male Race : ORD : [id number] Procedure Date : Nov 13 2023 08:23:19 Edit Date : Nov 13 2023 17:40:02 Diagnosis: Ventricular-paced rhythm WITH OCCASIONAL atrial-paced complexes AND WITH OCCASIONAL PREMATURE VENTRICULAR COMPLEXES ABNORMAL ECG NO PREVIOUS ECGS AVAILABLE Confirmed by MD REYNOSO VINAY ([id number]) on 11/13/2023 5:40:00 PM Test Reason : Arrhythmia Location : 103 : [facility] Overread By : MD REYNOSO VINAY Edited By : MD REYNOSO VINAY Referred By : RADHA HUGHES Acquired by : HEGLA WANG [facility] ANES POSTPROC EVALon 024 ANES POSTPROC EVAL HNO ID: [id number] Author: STEPHANIE IVEY MD Service: Anesthesiology Author Type: Anesthesiologist Type: Anesthesia Postprocedure Evaluation Filed: 11/12/2023 17:33 Note Text: POST ANESTHESIA EVALUATION NOTE : 1965 Procedure Summary Date: 11/12/23 Room / Location: [facility] Anesthesia Start: 921 Anesthesia Stop: 1536 Procedure: COMPLETE EPS W/PVI ABL W/WO 3D MAP ICE (Cardiac) Diagnosis: Tachy-bradley syndrome (HCC) Bradycardia Persistent atrial fibrillation (HCC) Presence of cardiac pacemaker (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]) (Bradycardia [R00.1]) (Persistent atrial fibrillation (HCC) [I48.19]) (Presence of cardiac pacemaker [Z95.0]) Surgeons: Radha Hughes MD Responsible Provider: Stephanie Ivey MD Anesthesia Type: general ASA Status: 3 Anesthesia Type: general Airway Type: ETT Last Vitals Vitals Value Taken Time BP 134/69 11/12/23 1715 Temp 36 ?C (96.8 ?F) 11/12/23 1535 Pulse 60 11/12/23 1730 Resp 6 11/12/23 1730 SpO2 95 % 11/12/23 1730 Vitals shown include unfiled device data. Post Anesthesia Patient Status Patient Evaluation: PACU. PACU/ICU Patient Condition: stable. Neurological Status: aware and responsive. Pulmonary Status: breathing comfortably on room air Airway Control: returned to baseline unsupported. Cardiovascular Status: stable. Pain Management: clinically adequate Postoperative Hydration: acceptable. Intraoperative Events: no significant anesthesia events Post Operative Nausea/Vomiting Status: no significant post operative nausea or vomiting Recommendation: continue current plan of care. Anesthesia Observations No Documentation SIGNATURE: Stephanie Ivey MD PATIENT NAME: Bharat Finch DATE: November 12, 2023 TIME: 5:30 PM CSN: [id number] Normal [facility] ANES PRE-OPon 11-12-2023 ANES PRE-OP HNO ID: [id number] Author: STEPHANIE IVEY MD Service: Anesthesiology Author Type: Anesthesiologist Type: Anesthesia Preprocedure Evaluation Filed: 11/12/2023 10:45 Note Text: ANESTHESIOLOGY DAY OF SURGERY NOTE : 1965 Procedure Information Anesthesia Start Date/Time: 11/12/23921 Procedure: COMPLETE EPS W/PVI ABL W/WO 3D MAP ICE (Cardiac) - CRYO - No medications that need to be held hANDp on 10/20 by Rosaura CARTER (SOUMYA) PACU/ROU Location: [facility] Surgeons: Radha Hughes MD Estimated body mass index is 36.18 kg/m? as calculated from the following: Height as of this encounter: 175.3 cm (5' 9). Weight as of this encounter: 111.1 kg (245 lb). Most recent hematocrit and potassium results: Hematocrit 41.6 11/12/2023 Potassium 4.1 11/12/2023 Relevant Problems No relevant active problems 58M with afib- CV 08/2022, sss s/p PM placement, CAD s/p CABG 2008 and stents 2018 and 08/2023, EF 45% Plavix 11/11 Metoprolol 11/11 Eliquis 11/11 I - PHYSICAL EVALUATION AIRWAY Patient intubated: No. Mallampati: III. TM distance: >3 FB. Neck ROM: full ROM without neurological symptoms. Mouth opening: adequate. Short neck: no. Thick neck: no Liang present: yes DENTAL Dental findings: poor dentition. II - ANESTHESIA PLAN ASA Score: 3 Anesthetic Plan: general Airway type: ETT The patient is not a current smoker. NPO Status: adequate Beta Mitra Monitoring Plan Monitoring plan: standard ASA. Post Procedure Analgesic Plan Postoperative analgesic plan: parenteral or oral opioids. Informed Consent Anesthetic risks, benefits, alternatives, personnel and consent discussed: yes. Patient / Responsible Green Party agrees to proceed: yes Patient / Surrogate agrees to blood products: blood products not planned Significant changes in the patient condition since the History and Physical, not otherwise documented in primary service progress note: no. Potential Anesthesia issues that may suggest increased risk of complications or contraindication to planned procedure: none. Vitals Value Taken Time BP 139/65 11/12/23818 Pulse 65 11/12/23818 Resp Temp 36 ?C (96.8 ?F) 11/12/23818 SpO2 98 % 11/12/23818 No current facility-administered medications on file as of 11/12/2023. Outpatient Medications as of 11/12/2023 Medication Sig metoprolol succinate ER (TOPROL XL) 100 mg Take 1 tablet by mouth every 12 hours. testosterone (ANDROGEL) 50 mg / 5 g (1%) Apply 1 Packet as directed once daily for 90 days. clopidogrel (PLAVIX) 75 mg tablet Take 75 mg by mouth once daily. potassium chloride ER (KLOR-CON) 20 mEq tablet Take 20 mEq by mouth once daily. atorvastatin (LIPITOR) 40 mg tablet Take 40 mg by mouth daily at bedtime. ELIQUIS 5 mg tab(s) Take 1 tablet by mouth every 12 hours 6am/6pm. tiZANidine (ZANAFLEX) 4 mg tablet Take 4 mg by mouth once daily as needed (muscle spasm). HYDROcodone-acetaminoph en (NORCO) 5-325 mg per tablet Take 1 tablet by mouth twice daily as needed. furosemide (LASIX) 40 mg tablet Take 1 tablet by mouth two times a day. I have interviewed and examined the patient. I have reviewed the medical record and/or the pre-anesthesia evaluation, pertinent labs, and test results. This contains updated information obtained within 48 hours of Surgery/Procedure. SIGNATURE: Stephanie Ivey MD PATIENT NAME: Bharat Finch DATE: November 12, 2023 TIME: 10:42 AM CSN: [id number] Normal [facility] Basic metabolic 2000 panelon 11-12-2023 Anion gap [Moles/Vol] 11 mmol/L Normal 8-15 [facility] Comment on above: Order Comment: Speci men Type: BLOOD SPECIMENOrdering Facility: [facility] Address: [address] [place] [address] Performed By: #### 2 4321-2 ####[facility] LABORATORYCLIA [id number] [place] [address] [place] Calcium [Mass/Vol] 9.3 mg/dL Normal 8.5-10.2 [facility] Comment on above: Order Comment: Speci men Type: BLOOD SPECIMENOrdering Facility: [facility] Address: [address] [place] [address] Performed By: #### 2 4321-2 ####[facility] LABORATORYCLIA [id number] [place] [address] [place] Chloride [Moles/Vol] 102 mmol/L Normal 98-107 [facility] Comment on above: Order Comment: Speci men Type: BLOOD SPECIMENOrdering Facility: [facility] Address: [address] [place] [address] Performed By: #### 2 4321-2 ####[facility] LABORATORYCLIA [id number] [address] [place] CO2 [Moles/Vol] 26 mmol/L Normal 22-30 [facility] Comment on above: Order Comment: Speci men Type: BLOOD SPECIMENOrdering Facility: [facility] Address: [address] [place] [address] Performed By: #### 2 4321-2 ####[facility] LABORATORYCLIA [id number] [address] [place] Creatinine [Mass/Vol] 1.17 mg/dL Normal 0.73-1.22 [facility] Comment on above: Order Comment: Speci men Type: BLOOD SPECIMENOrdering Facility: [facility] Address: [address] [place] [address] Performed By: #### 2 4321-2 ####[facility] LABORATORYCLIA [id number] [address] Creatinine and Glomerular filtration rate.predicted panel (S/P/Bld) 72 mL/min/1.73m??? Normal >=60 [facility] Comment on above: Order Comment: Speci men Type: BLOOD SPECIMENOrdering Facility: [facility] Address: [address] [place] [address] Result Comment: Agata mated Glomerular Filtration Rate (eGFR) is calculated using the 2020 CKD-EPI creatinine equation. This equation utilizes serum creatinine, sex, and age as parameters. The creatinine assay has traceable calibration to isotope dilution-mass spectrometry. Refer to KDIGO guidelines for clinical interpretation. In patients with unstable renal function, e.g. those with acute kidney injury, the eGFR may not accurately reflect actual GFR. Performed By: #### 2 4321-2 ####[facility] LABORATORYCLIA [id number] [place] [address] [place] Glucose [Mass/Vol] 108 mg/dL High 74-99 [facility] Comment on above: Order Comment: Berna blackwood Type: BLOOD SPECIMENOrdering Facility: [facility] Address: [address] [place] [address] Result Comment: The [place] Diabetes Association (ADA) provides guidance for cutoff values for fasting glucose and random glucose. The ADA defines fasting as no caloric intake for at least 8 hours. Fasting plasma glucose results between 100 to 125 mg/dL indicate increased risk for diabetes (prediabetes). Fasting plasma glucose results greater than or equal to 126 mg/dL meet the criteria for diagnosis of diabetes. In the absence of unequivocal hyperglycemia, results should be confirmed by repeat testing. In a patient with classic symptoms of hyperglycemia or hyperglycemic crisis, random plasma glucose results greater than or equal to 200 mg/dL meet the criteria for diagnosis of diabetes. Reference: Standards of Medical Care in Diabetes 2016, [place] [employer] Association. Diabetes Care. 2016.39(Suppl 1). Performed By: #### 2 4321-2 ####[facility] LABORATORYCLIA [id number] [place] [address] [place] Potassium [Moles/Vol] 4.1 mmol/L Normal 3.7-5.1 [facility] Comment on above: Order Comment: Berna blackwood Type: BLOOD SPECIMENOrdering Facility: [facility] Address: [address] [place] [id number] Performed By: #### 2 4321-2 ####[facility] LABORATORYCLIA [id number] [address] STATES OF [facility] Sodium [Moles/Vol] 139 mmol/L Normal 136-144 [facility] Comment on above: Order Comment: Speci men Type: BLOOD SPECIMENOrdering Facility: [facility] Address: [address] [place] [address] Performed By: #### 2 4321-2 ####[facility] LABORATORYCLIA [id number] [address] [place] Urea nitrogen [Mass/Vol] 16 mg/dL Normal 9-24 [facility] Comment on above: Order Comment: Speci men Type: BLOOD SPECIMENOrdering Facility: [facility] Address: [address] [place] [address] Performed By: #### 2 4321-2 ####[facility] LABORATORYCLIA [id number] [address] [place] CBC panel Auto (Bld)on 11-11 Erythrocyte distribution width (RBC) [Ratio] 15.4 % High 11.5-15.0 [facility] Comment on above: Order Comment: Speci men Type: BLOOD SPECIMENOrdering Facility: [facility] Address: [address] [place] [address] Performed By: #### 5 8410-2 ####[facility] LABORATORYCLIA [id number] [address] STATES OF [facility] Hematocrit (Bld) [Volume fraction] 41.6 % Normal 39.0-51.0 [facility] Comment on above: Order Comment: Speci men Type: BLOOD SPECIMENOrdering Facility: [facility] Address: [address] [place] [address] Performed By: #### 5 8410-2 ####[facility] LABORATORYCLIA [id number] [address] [place] Hemoglobin (Bld) [Mass/Vol] 13.0 g/dL Normal 13.0-17.0 [facility] Comment on above: Order Comment: Speci men Type: BLOOD SPECIMENOrdering Facility: [facility] Address: [address] [place] [address] Performed By: #### 5 8410-2 ####[facility] LABORATORYCLIA [id number] [address] MCH (RBC) [Entitic mass] 28.6 pg Normal 26.0-34.0 [facility] Comment on above: Order Comment: Speci men Type: BLOOD SPECIMENOrdering Facility: [facility] Address: [address] [place] [address] Performed By: #### 5 8410-2 ####[facility] LABORATORYCLIA [id number] [address] STATES OF [facility] MCHC (RBC) [Mass/Vol] 31.3 g/dL Normal 30.5-36.0 [facility] Comment on above: Order Comment: Speci men Type: BLOOD SPECIMENOrdering Facility: [facility] Address: [address] [place] [address] Performed By: #### 5 8410-2 ####[facility] CARMELCLIA [id number] [address] MCV (RBC) [Entitic vol] 91.6 fL Normal 80.0-100.0 [facility] Comment on above: Order Comment: Speci men Type: BLOOD SPECIMENOrdering Facility: [facility] Address: [address] [place] [address] Performed By: #### 5 8410-2 ####[facility] LABORATORYCLIA [id number] [address] Nucleated RBC (Bld) [#/Vol] 10*3/uL Normal <0.01 [facility] Comment on above: Order Comment: Speci men Type: BLOOD SPECIMENOrdering Facility: [facility] Address: [address] [place] [address] Performed By: #### 5 8410-2 ####[facility] LABORATORYCLIA [id number] [address] [place] Platelet mean volume (Bld) [Entitic vol] 10.9 fL Normal 9.0-12.7 [facility] Comment on above: Order Comment: Speci men Type: BLOOD SPECIMENOrdering Facility: [facility] Address: [address] [place] [address] Performed By: #### 5 8410-2 ####[facility] LABORATORYCLIA [id number] [address] OF [facility] Platelets (Bld) [#/Vol] 160 10*3/uL Normal 150-400 [facility] Comment on above: Order Comment: Speci men Type: BLOOD SPECIMENOrdering Facility: [facility] Address: [address] [place] [address] Performed By: #### 5 8410-2 ####[facility] LABORATORYCLIA [id number] [address] OF [facility] RBC (Bld) [#/Vol] 4.54 10*6/uL Normal 4.20-6.00 [facility] Comment on above: Order Comment: Speci men Type: BLOOD SPECIMENOrdering Facility: [facility] Address: [address] [place] [address] Performed By: #### 5 8410-2 ####[facility] LABORATORYCLIA [id number] [address] WBC (Bld) [#/Vol] 5.79 10*3/uL Normal 3.70-11.00 [facility] Comment on above: Order Comment: Speci men Type: BLOOD SPECIMENOrdering Facility: [facility] Address: [address] [place] [address] Performed By: #### 5 8410-2 ####[facility] LABORATORYCLIA [id number] [address] CONFIRM BLOOD TYPEon 024 ABO A Normal [facility] Comment on above: Order Comment: Speci men Type: BLOOD SPECIMENOrdering Facility: [facility] Address: [address] [place] [address] Performed By: #### C ONABO ####[facility] BLOOD BANKCLIA [id number] [place] [address] [place] Rh Nom (Bld) Positive Normal [facility] Comment on above: Order Comment: Speci men Type: BLOOD SPECIMENOrdering Facility: [facility] Address: [address] [place] [id number] Performed By: #### C ONABO ####[facility] BLOOD BANKCLIA [id number] [place] [address] [facility] HISTORY PHYSICALon HISTORY PHYSICAL HNO ID: [id number] Author: RADHA HUGHES MD Service: Electrophysiology Author Type: Physician Type: H&P Filed: 11/12/2023 09:24 Note Text: [facility] Electrophysiology (EP) EP Attending Mr. Finch presents for scheduled procedure: atrial fibrillation catheter ablation. HANDP reviewed, patient seen and examined pre-procedure. No substantial changes unless otherwise indicated. He reports no substantial changes since last evaluation. He did have electrical cardioversion earlier this month at [facility]. He wishes to proceed, all questions answered. Huddle completed with patient and caregiver teams. The HANDP is located in [facility] encounter dated 10/21/2023 Rosaura De La O in Dr. Enriquez's office ([facility]). I had a detailed discussion with Mr. Finch regarding my evaluation and recommendations. After our discussion, Mr. Finch expressed his understanding and I answered all his questions to his apparent satisfaction. He agrees to proceed as scheduled. INFORMED CONSENT The risks, benefits and anticipated outcomes of the procedure, the risks and benefits of the alternatives to the procedure and the roles and tasks of the personnel to be involved were discussed with the patient. Consent for the procedure and agreement to proceed has been obtained. I verify that I personally obtained the consent. Radha Hughes MD November 12, 2023 9:14 AM Normal [facility] NURSING PROGon 11-12-2023 NURSING PROG HNO ID: [id number] Author: CA ARANA RN Service: Nursing Author Type: Registered Nurse Type: Nursing Progress Note Filed: 11/12/2023 18:30 Note Text: Other: Dr. Hughes notified of oozing groin site, right groin dressed with pressure dressing per Dr. Lara order. Normal [facility] NURSING PROG HNO ID: [id number] Author: CA ARANA, RN Service: Nursing Author Type: Registered Nurse Type: Nursing Progress Note Filed: 11/12/2023 18:00 Note Text: Other: Dr. Hughes paged in regards to bleeding at right groin site. Pressure applied and dressing reapplied Normal [facility] TYPE + SCREENon 11-12-2023 ABO A Normal [facility] Comment on above: Order Comment: Speci men Type: BLOOD SPECIMENOrdering Facility: [facility] Address: [address] [place] [address] Performed By: #### T SCR ####[facility] BLOOD BANKCLIA [id number] [address] HISTORICAL AB SCR STATUS Negative [facility] Comment on above: Order Comment: Speci men Type: BLOOD SPECIMENOrdering Facility: [facility] Address: [address] [place] [address] Performed By: #### T SCR ####[facility] BLOOD BANKCLIA [id number] [address] [place] Rh Nom (Bld) Positive [facility] Comment on above: Order Comment: Speci men Type: BLOOD SPECIMENOrdering Facility: [facility] Address: [address] [place] [address] Performed By: #### T SCR ####[facility] BLOOD BANKCLIA [id number] [address] OF [facility] TYPE AND SCREEN EXPIRATION 11/15/2023 23:59 Normal [facility] Comment on above: Order Comment: Speci men Type: BLOOD SPECIMENOrdering Facility: [facility] Address: [address] [place] [address] Performed By: #### T SCR ####[facility] BLOOD BANKCLIA [id number] [address] OF [place] ECG B/O W INTERP (MED OFFICE )on 09-12-2023 Interpretation and review of laboratory results Abnormal [facility] Atrial fibrillation with rapid ventricular response, average 137 bpm; normal QRS duration 92 ms; QTc 484 ms [facility] Basophil percentageOrdered B y: Areli David on 08-20-2023 Bilirubin [Mass/Vol] 1.10 mg/dL 0.20-1.00 [facility] Comment on above: For patients on eltr ombopag therapy, use of Dimension [place] TBIL is not recommended. Chloride [Moles/Vol] 107 mmol/L 98-107 [facility] Glucose [Mass/Vol] 113 mg/dL 74-106 [facility] Comment on above: Fasting Glucose resu lt from 100 to 125 mg/dL suggests IMPAIRED HOMEOSTASIS per A.D.A. criteria. Hemoglobin (Bld) [Mass/Vol] 14.3 g/dL 13.0-16.5 [facility] Potassium [Moles/Vol] 3.5 mmol/L 3.5-5.1 [facility] Protein [Mass/Vol] 6.7 g/dL 6.4-8.2 [facility] Sodium [Moles/Vol] 139 mmol/L 136-145 [facility] WBC (Bld) [#/Vol] 10.3 10*3/uL 4.4-11.0 [facility] Determination of erythrocyte mean corpuscular volume (MCV)Ordered By: Areli David on 08-20-2023 MCV (RBC) [Entitic vol] 93.3 fL 80-94 [facility] Erythrocyte distribution wid th ratioOrdered By: Areli David on 08-20-2023 Erythrocyte distribution width (RBC) [Ratio] 13.0 % 11.6-14.6 [facility] Erythrocyte distribution wid th standard deviationOrdered By: Areli David on 08-20-2023 Erythrocyte distribution width (RBC) [Entitic vol] 44.1 fL 35.1-43.9 [facility] Hematocrit Auto (Bld) [Volum e fraction]Ordered By: rAeli David on 08-20-2023 Hematocrit (Bld) [Volume fraction] 44.6 % 40-54 [facility] Laboratory - Chemistry and C hemistry - challengeOrdered By: Areli David on 08-20-2023 Albumin/Globulin [Mass ratio] 1.0 {ratio} 0.9-2.4 [facility] ALP [Catalytic activity/Vol] 83 U/L 45-117 [facility] ALT [Catalytic activity/Vol] 23 U/L 16-61 [facility] CO2 [Moles/Vol] 24.0 mmol/L 21.0-32.0 [facility] Globulin (S) [Mass/Vol] 3.3 g/dL 2.2-4.2 [facility] Urea nitrogen/Creatinine [Mass ratio] 18.3 mg/mg 10-20 [facility] Laboratory - Hematology and Cell countsOrdered By: Areli David on 08-20-2023 MCH (RBC) [Entitic mass] 29.9 pg 27.0-32.0 [facility] MCHC (RBC) [Mass/Vol] 32.1 g/dL 32-36 [facility] Platelet mean volume (Bld) [Entitic vol] 11.0 fL 6.2-12.0 [facility] Platelets (Bld) [#/Vol] 188 10*3/uL 150-450 [facility] No Panel InformationOrdered By: Areli David on 08-20-2023 Estimated Creatinine Clearance Calc 92.83 ml/min [facility] Estimated GFR (MDRD) Amer 89 mL/min >60 [facility] Comment on above: GFR Calc Estimated GFR (MDRD) Non-Af Amer 74 mL/min >60 [facility] Comment on above: Non- GFR Calc RBC Auto (Bld) [#/Vol]Ordere d By: Areli David on 08-20-2023 RBC (Bld) [#/Vol] 4.78 10*6/uL 4.6-6.2 [facility] Serum or plasma calcium leyla urement (mass/volume)Ordered By: Areli David on 08-20-2023 Calcium [Mass/Vol] 9.1 mg/dL 8.5-10.1 [facility] Serum or plasma creatinine m easurement (mass/volume)Ordered By: Areli David on 08-20-2023 Creatinine [Mass/Vol] 1.09 mg/dL 0.70-1.30 [facility] Comment on above: The validity of the calculated GFR & GFRAA in patients over 70 years has not been determined. Clinical correlation is essential. Serum or plasma urea nitroge n measurement (mass/volume)Ordered By: Areli David on 08-20-2023 Urea nitrogen [Mass/Vol] 20 mg/dL 7-18 [facility] Thin prep Papanicolaou smear with manual screeningOrdered By: Areli David on 08-20-2023 Thin prep Papanicolaou smear with manual screening 3.4 g/dL 3.2-5.0 [facility] Thin prep Papanicolaou smear with manual screening 24 U/L 15-37 [facility] Thin prep Papanicolaou smear with manual screening 8 5-15 [facility] No Panel InformationOrdered By: Mina Enriquez on 08-19-2023 Activated Clotting Time 293 sec 74-137 [facility] Absolute lymphocyte countOrd ered By: Wilda Anderson on 08-14-2023 Lymphocytes Auto (Unsp spec) [#/Vol] 2.08 10*3/uL 0.83-4.51 [facility] Automated lymphocyte count a s percentage of total leukocytesOrdered By: Wilda Anderson on 08-14-2023 Lymphocytes/100 WBC Auto (Unsp spec) 20.6 % 19-41 [facility] Basophil percentageOrdered B y: Wilda Anderson on 08-14-2023 Basophils/100 WBC (Bld) 0.8 % 0-1 [facility] Eosinophils/100 WBC (Bld) 2.0 % 0-5 [facility] Monocytes/100 WBC (Bld) 13.8 % 0-10 [facility] Neutrophils (Bld) [#/Vol] 6.3 10*3/uL 2.0-7.7 [facility] Neutrophils/100 WBC (Bld) 62.0 % 47-70 [facility] Immature granulocytes/100 WB C Auto (Bld)Ordered By: Wilda Anderson on 08-14-2023 Immature granulocytes/100 WBC (Bld) 0.800 % 0.0-0.9 [facility] Comment on above: IG% - Immature Granu locytes (promyelocytes, myelocytes and metamyelocytes) > 1% indicates that a LEFT SHIFT is Present. Laboratory - Chemistry and C hemistry - challengeOrdered By: Wilda Anderson on 08-14-2023 Natriuretic peptide B (Bld) [Mass/Vol] 215.2 pg/mL 0-100 [facility] Laboratory - Hematology and Cell countsOrdered By: Wilda Anderson on 08-14-2023 Nucleated RBC/100 WBC (Bld) [Ratio] 0 % 0-5 [facility] XR Chest PA and Lateralon IMPRESSION: Small hazy opacities overlying the right lower lung. Consider follow-up. School Treasurer: CLAUDIA Transcribe Date/Time: Aug 07 2023 1:31P Dictated by : TRUMAN WHITE MD This examination was interpreted and the report reviewed and electronically signed by: TRUMAN WHITE MD on Aug 07 2023 1:32PM [facility] DIVISION OF RADIOLOGY * * *Final Report* * * DATE OF EXAM: Aug 07 2023 1:23PM WOX 5291 - XR CHEST 2V FRONTAL/LAT / PROCEDURE REASON: multiple diagnoses * * * * Physician Interpretation * * * * EXAMINATION: CHEST RADIOGRAPH (2 VIEW FRONTAL & LATERAL) CLINICAL HISTORY: Sinobronchitis Sinobronchitis MQ: XC2_6 EXAM DATE/TIME: 08/07/2023 1:23 PM COMPARISON: No relevant prior studies available. 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 Lungs and pleura: Small hazy opacities overlying the right lower lung. The left lung is clear. No mass lesion identified. No pleural effusions or pneumothorax. Cardiomediastinal silhouette: Unremarkable cardiomediastinal silhouette. Bones and soft tissues: Status post median sternotomy. DIVISION OF RADIOLOGY Provider, [facility] - 08/07/2023 * * *Final Report* * * DATE OF EXAM: Aug 07 2023 1:23PM WOX 5291 - XR CHEST 2V FRONTAL/LAT / PROCEDURE REASON: multiple diagnoses * * * * Physician Interpretation * * * * EXAMINATION: CHEST RADIOGRAPH (2 VIEW FRONTAL & LATERAL) CLINICAL HISTORY: Sinobronchitis Sinobronchitis MQ: XC2_6 EXAM DATE/TIME: 08/07/2023 1:23 PM COMPARISON: No relevant prior studies available. 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 Lungs and pleura: Small hazy opacities overlying the right lower lung. The left lung is clear. No mass lesion identified. No pleural effusions or pneumothorax. Cardiomediastinal silhouette: Unremarkable cardiomediastinal silhouette. Bones and soft tissues: Status post median sternotomy. IMPRESSION IMPRESSION: Small hazy opacities overlying the right lower lung. Consider follow-up. School Treasurer: CLAUDIA Transcribe Date/Time: Aug 07 2023 1:31P Dictated by : TRUMAN WHITE MD This examination was interpreted and the report reviewed and electronically signed by: TRUMAN WHITE MD on Aug 07 2023 1:32PM EST [facility] Radiology Study observation (narrative) [facility] XR Chest PA and LateralOrder ed By: [facility] Provider on 08-07-2023 [facility] Bilirubin Test strip Ql (U)O rdered By: Michael Marie on 08-06-2023 Bilirubin Ql (U) Negative Negative [facility] Ketones Test strip Ql (U)Ord ered By: Michael Marie on 08-06-2023 Ketones Ql (U) Negative Negative [facility] Laboratory - Drug toxicology Ordered By: Michael Marie on 08-06-2023 Amphetamines Ql (U) Negative <1000 ng/mL [facility] Benzodiazepines Ql (U) Negative < 200 ng/mL [facility] Cannabinoids Screen Ql (U) Negative < 50 ng/mL [facility] Cocaine Ql (U) Negative < 300 ng/mL [facility] Opiates Ql (U) Positive < 300 ng/mL [facility] Nitrite Test strip Ql (U)Ord ered By: Michael Marie on 08-06-2023 Nitrite Ql (U) Negative Negative [facility] No Panel InformationOrdered By: Michael Marie on 08-06-2023 MDMA (Ecstasy) Screen Negative < 500 ng/mL [facility] Miscellaneous Test See comment [facility] Comment on above: [id number] 6+OXYCODONE-B UND (ng/mL) DRUG RESULT SCREEN CUTOFF____ Amphetamines,Urine Negative ng/mL 1000 Amphetamine test includes Amphetamine and Methamphetamine.Barbiturates Negative ng/mL 200Benzodiazepines Negative ng/mL 200Cannabinoid Negative ng/mL 20Cocaine (Metab) Negative ng/mL 300Opiates Negative ng/mL 300 Opiates test includes Codeine, Morphine, Hydromorphone, Hydrocodone. Oxycodone/Oxymorphone,Urine Negative ng/mL 300 Test includes Oxycodone and Oxymorphone. TESTING PERFORMED AT [facility]. ORIGINAL REPORT ON FILE IN LAB CONTAINS ADDITIONAL TEST SITE INFORMATION. Urine Barbiturates Screen Negative < 200 ng/mL [facility] Urine Drug Screen Comment [facility] Comment on above: CONFIRMATORY TESTING FOR ALL POSITIVE URINE DRUG SCREENRESULTS WILL ONLY BE SENT OUT UPON PHYSICIAN ORDER. VISTA Urine Drug Screen methods provide only preliminaryanalytical test results. A more specific alternate chemicalmethod must be used in order to obtain a confirmedanalytical result. Gas chromatography/mass spectrometery(GC/MS) is the preferred confirmatory method. Clinicalconsideration and professional judgement should be appliedto any drug of abuse test result, particularly whenpreliminary positive results are used. URINE TCA TESTING MUST BE ORDERED SEPARATELY. USE TESTMNEMONIC: [facility] Urine Methadone Screen Negative < 300 ng/mL [facility] Protein Test strip Ql (U)Ord ered By: Michael Marie on 08-06-2023 Protein Ql (U) Negative Negative [facility] Urine blood detectionOrdered By: Michael Marie on 08-06-2023 RBC Ql (U) Negative Negative [facility] Urine clarityOrdered By: Leroy Marie on 08-06-2023 Clarity (U) Clear Clear [facility] Urine color determinationOrd ered By: Michael Marie on 08-06-2023 Color (U) Yellow Yellow [facility] Urine glucose detectionOrder ed By: Michael Marie on 08-06-2023 Glucose Ql (U) 1000 mg/dl Normal [facility] Urine leukocyte esterase det ection by dipstickOrdered By: Michael Marie on 08-06-2023 Leukocyte esterase Test strip Ql (U) Negative Negative [facility] Urine pHOrdered By: Michael amanda on 08-06-2023 pH (U) 5.0 [pH] 5.0 - 8.0 [facility] Urine phencyclidine (PCP) de tectionOrdered By: Michael Marie on 08-06-2023 Phencyclidine Ql (U) Negative < 25 ng/mL [facility] Urine specific gravity measu rementOrdered By: Michael Marie on 08-06-2023 Specific gravity (U) [Rel density] 1.010 1.002-1.030 [facility] Urine urobilinogen measureme ntOrdered By: Michael Marie on 08-06-2023 Urobilinogen Ql (U) Normal mg/dl Normal [facility] Absolute lymphocyte countOrd ered By: Kuldeep Dong on 08-02-2023 Lymphocytes Auto (Unsp spec) [#/Vol] 1.68 10*3/uL 0.83-4.51 [facility] Automated lymphocyte count a s percentage of total leukocytesOrdered By: Kuldeep Dong on 08-02-2023 Lymphocytes/100 WBC Auto (Unsp spec) 22.8 % 19-41 [facility] Basophil percentageOrdered B y: Kuldeep Dong on 08-02-2023 Basophils/100 WBC (Bld) 1.1 % 0-1 [facility] Chloride [Moles/Vol] 100 mmol/L 98-107 [facility] Eosinophils/100 WBC (Bld) 2.8 % 0-5 [facility] Glucose [Mass/Vol] 119 mg/dL 74-106 [facility] Comment on above: Fasting Glucose resu lt from 100 to 125 mg/dL suggests IMPAIRED HOMEOSTASIS per A.D.A. criteria. Hemoglobin (Bld) [Mass/Vol] 15.7 g/dL 13.0-16.5 [facility] Monocytes/100 WBC (Bld) 11.5 % 0-10 [facility] Neutrophils (Bld) [#/Vol] 4.5 10*3/uL 2.0-7.7 [facility] Neutrophils/100 WBC (Bld) 61.4 % 47-70 [facility] Potassium [Moles/Vol] 3.5 mmol/L 3.5-5.1 [facility] Sodium [Moles/Vol] 137 mmol/L 136-145 [facility] WBC (Bld) [#/Vol] 7.4 10*3/uL 4.4-11.0 [facility] Determination of erythrocyte mean corpuscular volume (MCV)Ordered By: Kuldeep Dong on 08-02-2023 MCV (RBC) [Entitic vol] 92.2 fL 80-94 [facility] Erythrocyte distribution wid th ratioOrdered By: Kuldeep Dong on 08-02-2023 Erythrocyte distribution width (RBC) [Ratio] 12.9 % 11.6-14.6 [facility] Erythrocyte distribution wid th standard deviationOrdered By: Kuldeep Dong on 08-02-2023 Erythrocyte distribution width (RBC) [Entitic vol] 43.8 fL 35.1-43.9 [facility] Hematocrit Auto (Bld) [Volum e fraction]Ordered By: Kuldeep Dong on 08-02-2023 Hematocrit (Bld) [Volume fraction] 47.4 % 40-54 [facility] Immature granulocytes/100 WB C Auto (Bld)Ordered By: Kuldeep Dong on 08-02-2023 Immature granulocytes/100 WBC (Bld) 0.400 % 0.0-0.9 [facility] Comment on above: IG% - Immature Granu locytes (promyelocytes, myelocytes and metamyelocytes) > 1% indicates that a LEFT SHIFT is Present. Laboratory - Chemistry and C hemistry - challengeOrdered By: Kuldeep Dong on 08-02-2023 CO2 [Moles/Vol] 33.0 mmol/L 21.0-32.0 [facility] Urea nitrogen/Creatinine [Mass ratio] 19.6 mg/mg 10-20 [facility] Laboratory - Hematology and Cell countsOrdered By: Kuldeep Dong on 08-02-2023 MCH (RBC) [Entitic mass] 30.5 pg 27.0-32.0 [facility] MCHC (RBC) [Mass/Vol] 33.1 g/dL 32-36 [facility] Nucleated RBC/100 WBC (Bld) [Ratio] 0 % 0-5 [facility] Platelet mean volume (Bld) [Entitic vol] 10.3 fL 6.2-12.0 [facility] Platelets (Bld) [#/Vol] 233 10*3/uL 150-450 [facility] No Panel InformationOrdered By: Kuldeep Dong on 08-02-2023 Estimated Creatinine Clearance Calc 69.41 ml/min [facility] Estimated GFR (MDRD) Amer 65 mL/min >60 [facility] Comment on above: GFR Calc Estimated GFR (MDRD) Non-Af Amer 54 mL/min >60 [facility] Comment on above: Non- GFR Calc RBC Auto (Bld) [#/Vol]Ordere d By: Kuldeep Dong on 08-02-2023 RBC (Bld) [#/Vol] 5.14 10*6/uL 4.6-6.2 [facility] Serum or plasma calcium leyla urement (mass/volume)Ordered By: Kuldeep Dong on 08-02-2023 Calcium [Mass/Vol] 9.4 mg/dL 8.5-10.1 [facility] Serum or plasma creatinine m easurement (mass/volume)Ordered By: Kuldeep Dong on 08-02-2023 Creatinine [Mass/Vol] 1.43 mg/dL 0.70-1.30 [facility] Comment on above: The validity of the calculated GFR & GFRAA in patients over 70 years has not been determined. Clinical correlation is essential. Serum or plasma urea nitroge n measurement (mass/volume)Ordered By: Kuldeep Dong on 08-02-2023 Urea nitrogen [Mass/Vol] 28 mg/dL 7-18 [facility] Thin prep Papanicolaou smear with manual screeningOrdered By: Kuldeep Dong on 08-02-2023 Thin prep Papanicolaou smear with manual screening 4 5-15 [facility] Basophil percentageOrdered B y: Kuldeep Dong on 08-01-2023 Basophil percentage 3.5 mg/dL 2.5-4.9 [facility] Laboratory - Chemistry and C hemistry - challengeOrdered By: Kuldeep Dong on 08-01-2023 Magnesium [Mass/Vol] 2.1 mg/dL 1.6-2.6 [facility] Basophil percentageOrdered B y: Martha Madrid on 07-31-2023 Bilirubin [Mass/Vol] 1.10 mg/dL 0.20-1.00 [facility] Comment on above: For patients on eltr ombopag therapy, use of Dimension [place] TBIL is not recommended. Cholesterol [Mass/Vol] 121 mg/dL <200 [facility] Comment on above: <200 mg/dL Desirable 200-240 mg/dL Borderline >240 mg/dL High Risk Protein [Mass/Vol] 7.5 g/dL 6.4-8.2 [facility] Triglyceride [Mass/Vol] 85 mg/dL <199 [facility] Comment on above: The drugs N-Acetylcy steine and Metamizole may falsely depress this assay.Serum Triglycerides Reference Interval Normal <150 mg/dL Borderline high 150 - 199 mg/dL High 200 - 499 mg/dL Very High > or = 500 mg/dL Laboratory - Chemistry and C hemistry - challengeOrdered By: Martha Madrid on 07-31-2023 Albumin/Globulin [Mass ratio] 1.1 {ratio} 0.9-2.4 [facility] ALP [Catalytic activity/Vol] 89 U/L 45-117 [facility] ALT [Catalytic activity/Vol] 34 U/L 16-61 [facility] Cholesterol in HDL [Mass/Vol] 40 mg/dL >40 [facility] Comment on above: The drugs N-Acetylcy steine and Metamizole may falsely depress this assay. Reference Range HDL <40 mg/dL Low HDL Cholesterol HDL >or= 60 mg/dL High HDL Cholesterol Cholesterol in LDL [Mass/Vol] 64 mg/dL 0-130 [facility] Globulin (S) [Mass/Vol] 3.5 g/dL 2.2-4.2 [facility] No Panel InformationOrdered By: Martha Madrid on 07-31-2023 VLDL Cholesterol 17 mg/dL 5-40 [facility] Serum or plasma thyroid stim ulating hormone (TSH) measurement (units/volume)Ordered By: Martha Madrid on 07-31-2023 TSH Qn 1.42 uIU/mL 0.358-3.74 [facility] Thin prep Papanicolaou smear with manual screeningOrdered By: Martha Madrid on 07-31-2023 Thin prep Papanicolaou smear with manual screening 4.0 g/dL 3.2-5.0 [facility] Thin prep Papanicolaou smear with manual screening 33 U/L 15-37 [facility] Direct bilirubinOrdered By: Javier Potts on 07-30-2023 Bilirubin.direct [Mass/Vol] 0.34 mg/dL 0.00-0.30 [facility] Laboratory - Chemistry and C hemistry - challengeOrdered By: Javier Potts on 07-30-2023 Natriuretic peptide B (Bld) [Mass/Vol] 228.2 pg/mL 0-100 [facility] No Panel InformationOrdered By: Martha Mercy on 07-30-2023 Troponin I High Sensitivity 12 pg/mL 3.0-78.0 [facility] Comment on above: Please Note: New Denise t Units and Gender Specific Reference Ranges. For more information see Policy Stat Procedure [place] High Sensitivity Troponin (TNIH) and attachments. COVID & INFLUENZA A/B & RSV NAAT, ROUTINEon 07-28-2023 FLUAV RNA ROXY+probe Ql (Unsp spec) Not detected Not Detected [facility] FLUBV RNA ROXY+probe Ql (Unsp spec) Not detected Not Detected [facility] RSV A RNA ROXY+probe Ql (Unsp spec) Not detected Not Detected [facility] SARS-CoV-2 (COVID-19) RNA ROXY+probe Ql (Resp) Not detected See comment [facility] INFLUENZA A&B MOLECULAR (POC )on 07-28-2023 Flu A (POCT) Negative Negative [facility] Flu B (POCT) Negative Negative [facility] Procedural Control [facility] Basophil percentageOrdered B y: Rosaura De La O on 06-26-2023 Bilirubin [Mass/Vol] 0.80 mg/dL 0.20-1.00 [facility] Comment on above: For patients on eltr ombopag therapy, use of Dimension [place] TBIL is not recommended. Chloride [Moles/Vol] 104 mmol/L 98-107 [facility] Glucose [Mass/Vol] 104 mg/dL 74-106 [facility] Comment on above: Fasting Glucose resu lt from 100 to 125 mg/dL suggests IMPAIRED HOMEOSTASIS per A.D.A. criteria. Potassium [Moles/Vol] 4.0 mmol/L 3.5-5.1 [facility] Protein [Mass/Vol] 7.5 g/dL 6.4-8.2 [facility] Sodium [Moles/Vol] 140 mmol/L 136-145 [facility] Laboratory - Chemistry and C hemistry - challengeOrdered By: Rosaura De La O on 06-26-2023 Albumin/Globulin [Mass ratio] 1.1 {ratio} 0.9-2.4 [facility] ALP [Catalytic activity/Vol] 78 U/L 45-117 [facility] ALT [Catalytic activity/Vol] 28 U/L 16-61 [facility] CO2 [Moles/Vol] 31.0 mmol/L 21.0-32.0 [facility] Globulin (S) [Mass/Vol] 3.6 g/dL 2.2-4.2 [facility] Natriuretic peptide B (Bld) [Mass/Vol] 152.2 pg/mL 0-100 [facility] Urea nitrogen/Creatinine [Mass ratio] 15.0 mg/mg 10-20 [facility] No Panel InformationOrdered By: Rosaura De La O on 06-26-2023 Estimated GFR (MDRD) Amer 67 mL/min >60 [facility] Comment on above: GFR Calc Estimated GFR (MDRD) Non-Af Amer 55 mL/min >60 [facility] Comment on above: Non- GFR Calc Serum or plasma calcium leyla urement (mass/volume)Ordered By: Rosaura De La O on 06-26-2023 Calcium [Mass/Vol] 9.5 mg/dL 8.5-10.1 [facility] [facility] Serum or plasma creatinine m easurement (mass/volume)Ordered By: Rosaura De La O on 06-26-2023 Creatinine [Mass/Vol] 1.40 mg/dL 0.70-1.30 [facility] Comment on above: The validity of the calculated GFR & GFRAA in patients over 70 years has not been determined. Clinical correlation is essential. Serum or plasma urea nitroge n measurement (mass/volume)Ordered By: Rosaura De La O on 06-26-2023 Urea nitrogen [Mass/Vol] 21 mg/dL 7-18 [facility] Thin prep Papanicolaou smear with manual screeningOrdered By: Rosaura De La O on 06-26-2023 Thin prep Papanicolaou smear with manual screening 3.9 g/dL 3.2-5.0 [facility] Thin prep Papanicolaou smear with manual screening 29 U/L 15-37 [facility] Thin prep Papanicolaou smear with manual screening 5 5-15 [facility] Basophil percentageOrdered B y: Rosaura De La O on 06-06-2023 Chloride [Moles/Vol] 104 mmol/L 98-107 [facility] Glucose [Mass/Vol] 186 mg/dL 74-106 [facility] Comment on above: Fasting Glucose resu lt greater than or equal to 126 mg/dL suggests DIABETES MELLITUS per A.D.A. criteria. Hemoglobin (Bld) [Mass/Vol] 14.4 g/dL 13.0-16.5 [facility] Potassium [Moles/Vol] 3.7 mmol/L 3.5-5.1 [facility] Sodium [Moles/Vol] 141 mmol/L 136-145 [facility] WBC (Bld) [#/Vol] 6.1 10*3/uL 4.4-11.0 [facility] Determination of erythrocyte mean corpuscular volume (MCV)Ordered By: Rosaura De La O on 06-06-2023 MCV (RBC) [Entitic vol] 93.7 fL 80-94 [facility] Erythrocyte distribution wid th ratioOrdered By: Rosaura De La O on 06-06-2023 Erythrocyte distribution width (RBC) [Ratio] 13.0 % 11.6-14.6 [facility] Erythrocyte distribution wid th standard deviationOrdered By: Rosaura De La O on 06-06-2023 Erythrocyte distribution width (RBC) [Entitic vol] 45.0 fL 35.1-43.9 [facility] Hematocrit Auto (Bld) [Volum e fraction]Ordered By: Rosaura De La O on 06-06-2023 Hematocrit (Bld) [Volume fraction] 43.3 % 40-54 [facility] Laboratory - Chemistry and C hemistry - challengeOrdered By: Rosaura De La O on 06-06-2023 CO2 [Moles/Vol] 30.0 mmol/L 21.0-32.0 [facility] Natriuretic peptide B (Bld) [Mass/Vol] 104.2 pg/mL 0-100 [facility] Urea nitrogen/Creatinine [Mass ratio] 14.2 mg/mg 10-20 [facility] Laboratory - Hematology and Cell countsOrdered By: Rosaura De La O on 06-06-2023 MCH (RBC) [Entitic mass] 31.2 pg 27.0-32.0 [facility] MCHC (RBC) [Mass/Vol] 33.3 g/dL 32-36 [facility] Platelet mean volume (Bld) [Entitic vol] 11.2 fL 6.2-12.0 [facility] Platelets (Bld) [#/Vol] 159 10*3/uL 150-450 [facility] No Panel InformationOrdered By: Rosaura De La O on 06-06-2023 Estimated GFR (MDRD) Amer 57 mL/min >60 [facility] Comment on above: GFR Calc Estimated GFR (MDRD) Non-Af Amer 47 mL/min >60 [facility] Comment on above: Non- GFR Calc RBC Auto (Bld) [#/Vol]Ordere d By: Rosaura De La O on 06-06-2023 RBC (Bld) [#/Vol] 4.62 10*6/uL 4.6-6.2 [facility] Serum or plasma calcium leyla urement (mass/volume)Ordered By: Rosaura De La O on 06-06-2023 Calcium [Mass/Vol] 9.7 mg/dL 8.5-10.1 [facility] Serum or plasma creatinine m easurement (mass/volume)Ordered By: Rosaura De La O on 06-06-2023 Creatinine [Mass/Vol] 1.62 mg/dL 0.70-1.30 [facility] Comment on above: The validity of the calculated GFR & GFRAA in patients over 70 years has not been determined. Clinical correlation is essential. Serum or plasma urea nitroge n measurement (mass/volume)Ordered By: Rosaura De La O on 06-06-2023 Urea nitrogen [Mass/Vol] 23 mg/dL 7-18 [facility] Thin prep Papanicolaou smear with manual screeningOrdered By: Rosaura De La O on 06-06-2023 Thin prep Papanicolaou smear with manual screening 7 5-15 [facility] XR Abdomen Supine and Uprigh ton 04-28-2023 IMPRESSION: Findings as described. School Treasurer: PSCB Transcribe Date/Time: Apr 28 2023 8:52A Dictated by : TRUMAN WHITE MD This examination was interpreted and the report reviewed and electronically signed by: TRUMAN WHITE MD on Apr 28 2023 9:13AM [facility] DIVISION OF RADIOLOGY * * *Final Report* * * DATE OF EXAM: Apr 25 2023 11:07AM WOX [id number] - XR ABDOMEN 1V SUPINE / PROCEDURE REASON: Kidney stone * * * * Physician Interpretation * * * * EXAM TITLE: XR ABDOMEN 1V SUPINE EXAM DATE/TIME: 04/25/2023 11:07 AM COMPARISON: X-ray abdomen on 03/24/2023 CLINICAL INDICATION/HISTORY: Kidney stone TECHNIQUE: AP views of the abdomen are presented. FINDINGS: The previously mentioned 9 mm radiopaque opacity overlying the right kidney is not visualized on the current study, likely obscured by the stool and gas in the bowel loops. No abnormal radiopaque opacity projecting over the left kidney. No abnormal calcifications seen in the pelvis. No abnormally dilated bowel loops identified. The spine shows degenerative changes. DIVISION OF RADIOLOGY Provider, [facility] Fiorella [facility] - 04/28/2023 * * *Final Report* * * DATE OF EXAM: Apr 25 2023 11:07AM WOX [id number] - XR ABDOMEN 1V SUPINE / PROCEDURE REASON: Kidney stone * * * * Physician Interpretation * * * * EXAM TITLE: XR ABDOMEN 1V SUPINE EXAM DATE/TIME: 04/25/2023 11:07 AM COMPARISON: X-ray abdomen on 03/24/2023 CLINICAL INDICATION/HISTORY: Kidney stone TECHNIQUE: AP views of the abdomen are presented. FINDINGS: The previously mentioned 9 mm radiopaque opacity overlying the right kidney is not visualized on the current study, likely obscured by the stool and gas in the bowel loops. No abnormal radiopaque opacity projecting over the left kidney. No abnormal calcifications seen in the pelvis. No abnormally dilated bowel loops identified. The spine shows degenerative changes. IMPRESSION IMPRESSION: Findings as described. School Treasurer: CLAUDIA Transcribe Date/Time: Apr 28 2023 8:52A Dictated by : TRUMAN WHITE MD This examination was interpreted and the report reviewed and electronically signed by: TRUMAN WHITE MD on Apr 28 2023 9:13AM EST [facility] XR Abdomen Supine and Uprigh tOrdered By: [facility] Provider on 04-28-2023 [facility] XR Abdomen Supine and Uprigh ton 04-25-2023 Radiology Study observation (narrative) [facility] UA DIP, URINE (POC)on 2022 BILIRUBIN UA (POCT) Negative Negative [facility] CLARITY UA (POCT) Clear [facility] COLOR UA (POCT) Yellow [facility] GLUCOSE UA (POCT) 500 mg/dL Abnormal Negative mg/dL [facility] Hemoglobin Ql (U) Moderate Abnormal Negative [facility] KETONE UA (POCT) Negative Negative mg/dL [facility] LEUKOCYTES UA (POCT) Trace Abnormal Negative [facility] NITRITE UA (POCT) Negative Negative [facility] PH UA (POCT) 6.5 4.5 - 8.0 [facility] Protein Ql (U) >=300 Abnormal Negative mg/dL [facility] SPECIFIC GRAVITY UA (POCT) 1.025 1.005 - 1.030 [facility] UROBILINOGEN UA (POCT) 1.0 E.U./dL [facility] l E.U./dL [facility] Laboratory - Drug toxicology Ordered By: Michael Marie on 12-30-2022 Amphetamines Ql (U) Negative <1000 ng/mL [facility] Benzodiazepines Ql (U) Negative < 200 ng/mL [facility] Cannabinoids Screen Ql (U) Negative < 50 ng/mL [facility] Cocaine Ql (U) Negative < 300 ng/mL [facility] Opiates Ql (U) Positive < 300 ng/mL [facility] No Panel InformationOrdered By: Michael Marie on 12-30-2022 MDMA (Ecstasy) Screen Negative < 500 ng/mL [facility] Urine Barbiturates Screen Negative < 200 ng/mL [facility] Urine Drug Screen Comment [facility] Comment on above: CONFIRMATORY TESTING FOR ALL POSITIVE URINE DRUG SCREENRESULTS WILL ONLY BE SENT OUT UPON PHYSICIAN ORDER. VISTA Urine Drug Screen methods provide only preliminaryanalytical test results. A more specific alternate chemicalmethod must be used in order to obtain a confirmedanalytical result. Gas chromatography/mass spectrometery(GC/MS) is the preferred confirmatory method. Clinicalconsideration and professional judgement should be appliedto any drug of abuse test result, particularly whenpreliminary positive results are used. URINE TCA TESTING MUST BE ORDERED SEPARATELY. USE TESTMNEMONIC: [facility] Urine Methadone Screen Negative < 300 ng/mL [facility] Urine phencyclidine (PCP) de tectionOrdered By: Michael Marie on 12-30-2022 Phencyclidine Ql (U) Negative < 25 ng/mL [facility] Urinalysis complete panel (U )on 11-29-2022 Bilirubin Ql (U) Negative Negative [facility] Clarity (Unsp spec) Cloudy Abnormal Clear [facility] Color (U) Yellow Yellow [facility] Glucose Test strip (U) [Mass/Vol] Trace Trace, Negative [facility] Hemoglobin Ql (U) 3+ Abnormal Negative, Trace [facility] Ketones Ql (U) Negative Trace, Negative [facility] Leukocyte esterase Test strip Ql (U) 250 Natasha/uL Abnormal Negative, 25 Natasha/uL [facility] Nitrite Ql (U) Negative Negative [facility] pH (U) 5.5 [pH] 5.0 - 8.0 [facility] Protein (U) [Mass/Vol] 1+ Abnormal Trace , Negative [facility] RBC LM.HPF (Urine sed) [#/Area] /[HPF] Abnormal 0-3 /HPF [facility] Specific gravity (U) [Rel density] 1.026 1.005 - 1.030 [facility] Urobilinogen Ql (U) Negative Negative [facility] WBC LM.HPF (Urine sed) [#/Area] /[HPF] Abnormal 0-5 /HPF [facility] Basophil percentageOrdered B y: Rosaura De La O on 07-30-2022 Bilirubin [Mass/Vol] 0.40 mg/dL 0.20-1.00 [facility] Comment on above: For patients on eltr ombopag therapy, use of Dimension [place] TBIL is not recommended. Chloride [Moles/Vol] 105 mmol/L 98-107 [facility] Glucose [Mass/Vol] 104 mg/dL 74-106 [facility] Comment on above: Fasting Glucose resu lt from 100 to 125 mg/dL suggests IMPAIRED HOMEOSTASIS per A.D.A. criteria. Potassium [Moles/Vol] 4.4 mmol/L 3.5-5.1 [facility] Protein [Mass/Vol] 7.6 g/dL 6.4-8.2 [facility] Sodium [Moles/Vol] 135 mmol/L 136-145 [facility] Laboratory - Chemistry and C hemistry - challengeOrdered By: Rosaura De La O on 07-30-2022 ALP [Catalytic activity/Vol] 65 U/L 45-117 [facility] ALT [Catalytic activity/Vol] 30 U/L 16-61 [facility] CO2 [Moles/Vol] 26.0 mmol/L 21.0-32.0 [facility] Globulin (S) [Mass/Vol] 3.5 g/dL 2.2-4.2 [facility] Urea nitrogen/Creatinine [Mass ratio] 23.8 mg/mg 10-20 [facility] No Panel InformationOrdered By: Rosaura De La O on 07-30-2022 Estimated GFR (MDRD) Amer 79 mL/min >60 [facility] Comment on above: GFR Calc Estimated GFR (MDRD) Non-Af Amer 65 mL/min >60 [facility] Comment on above: Non- GFR Calc Serum or plasma albumin leyla urement (mass/volume)Ordered By: Rosaura De La O on 07-30-2022 Albumin [Mass/Vol] 4.1 g/dL 3.2-5.0 [facility] Serum or plasma albumin/glob ulin mass ratioOrdered By: Rosaura De La O on 07-30-2022 Albumin/Globulin [Mass ratio] 1.2 {ratio} 0.9-2.4 [facility] Serum or plasma calcium leyla urement (mass/volume)Ordered By: Rosaura De La O on 07-30-2022 Calcium [Mass/Vol] 9.7 mg/dL 8.5-10.1 [facility] Serum or plasma creatinine m easurement (mass/volume)Ordered By: Rosaura De La O on 07-30-2022 Creatinine [Mass/Vol] 1.22 mg/dL 0.70-1.30 [facility] Comment on above: The validity of the calculated GFR & GFRAA in patients over 70 years has not been determined. Clinical correlation is essential. Serum or plasma urea nitroge n measurement (mass/volume)Ordered By: Rosaura De La O on 07-30-2022 Urea nitrogen [Mass/Vol] 29 mg/dL 7-18 [facility] Thin prep Papanicolaou smear with manual screeningOrdered By: Rosaura De La O on 07-30-2022 Thin prep Papanicolaou smear with manual screening 27 U/L 15-37 [facility] Thin prep Papanicolaou smear with manual screening 4 5-15 [facility] Basophil percentageOrdered B y: Rosaura De La O on 05-02-2022 Basophil percentage 0 SEEN /hpf 0-5 [facility] Chloride [Moles/Vol] 103 mmol/L 98-107 [facility] Glucose [Mass/Vol] 92 mg/dL 74-106 [facility] Potassium [Moles/Vol] 4.7 mmol/L 3.5-5.1 [facility] Sodium [Moles/Vol] 137 mmol/L 136-145 [facility] WBC (Bld) [#/Vol] 7.5 10*3/uL 4.4-11.0 [facility] Bilirubin Test strip Ql (U)O rdered By: Rosaura De La O on 05-02-2022 Bilirubin Ql (U) Negative Negative [facility] Blood erythrocytes count (nu mber/volume)Ordered By: Rosaura De La O on 05-02-2022 RBC (Bld) [#/Vol] 4.43 10*6/uL 4.6-6.2 [facility] Blood hemoglobin measurement (mass/volume)Ordered By: Rosaura De La O on 05-02-2022 Hemoglobin (Bld) [Mass/Vol] 13.5 g/dL 13.0-16.5 [facility] Blood platelet mean volumeOr dered By: Rosaura De La O on 05-02-2022 Platelet mean volume (Bld) [Entitic vol] 11.6 fL 6.2-12.0 [facility] Determination of erythrocyte mean corpuscular volume (MCV)Ordered By: Rosaura De La O on 05-02-2022 MCV (RBC) [Entitic vol] 92.8 fL 80-94 [facility] Hematocrit Auto (Bld) [Volum e fraction]Ordered By: Rosaura De La O on 05-02-2022 Hematocrit (Bld) [Volume fraction] 41.1 % 40-54 [facility] INR in Blood by Coagulation assayOrdered By: Rosaura De La O on 05-02-2022 INR Coag (Bld) [Relative time] 1.4 {INR} [facility] Ketones Test strip Ql (U)Ord ered By: Rosaura De La O on 05-02-2022 Ketones Ql (U) Negative Negative [facility] Laboratory - Chemistry and C hemistry - challengeOrdered By: Rosaura De La O on 05-02-2022 CO2 [Moles/Vol] 29.0 mmol/L 21.0-32.0 [facility] Urea nitrogen/Creatinine [Mass ratio] 19.9 mg/mg 10-20 [facility] Laboratory - CoagulationOrde red By: Rosaura De La O on 05-02-2022 PT Coag (PPP) [Time] 17.0 s 11.7-14.9 [facility] Laboratory - Hematology and Cell countsOrdered By: Rosaura De La O on 05-02-2022 Erythrocyte distribution width (RBC) [Entitic vol] 42.1 fL 35.1-43.9 [facility] Erythrocyte distribution width (RBC) [Ratio] 12.2 % 11.6-14.6 [facility] MCH (RBC) [Entitic mass] 30.5 pg 27.0-32.0 [facility] MCHC Auto (RBC) [Mass/Vol]Or dered By: Rosaura De La O on 05-02-2022 MCHC (RBC) [Mass/Vol] 32.8 g/dL 32-36 [facility] Mucus LM Ql (Urine sed)Order ed By: Rosaura De La O on 05-02-2022 Mucus Ql (Urine sed) 0 SEEN /hpf [facility] Nitrite Test strip Ql (U)Ord ered By: Rosaura De La O on 05-02-2022 Nitrite Ql (U) Negative Negative [facility] No Panel InformationOrdered By: Rosaura De La O on 05-02-2022 Estimated GFR (MDRD) Amer 50 mL/min >60 [facility] Comment on above: GFR Calc Estimated GFR (MDRD) Non-Af Amer 41 mL/min >60 [facility] Comment on above: Non- GFR Calc Platelets bldOrdered By: Jonny De La O on 05-02-2022 Platelets (Bld) [#/Vol] 144 10*3/uL 150-450 [facility] Protein Test strip Ql (U)Ord ered By: Rosaura De La O on 05-02-2022 Protein Ql (U) Negative Negative [facility] Serum or plasma calcium leyla urement (mass/volume)Ordered By: Rosaura De La O on 05-02-2022 Calcium [Mass/Vol] 9.9 mg/dL 8.5-10.1 [facility] Serum or plasma creatinine m easurement (mass/volume)Ordered By: Rosaura De La O on 05-02-2022 Creatinine [Mass/Vol] 1.81 mg/dL 0.70-1.30 [facility] Comment on above: The validity of the calculated GFR & GFRAA in patients over 70 years has not been determined. Clinical correlation is essential. Serum or plasma urea nitroge n measurement (mass/volume)Ordered By: Rosaura De La O on 05-02-2022 Urea nitrogen [Mass/Vol] 36 mg/dL 7-18 [facility] Squamous epithelial cells de tection in urine sediment by light microscopyOrdered By: Rosaura De La O on 05-02-2022 Epithelial cells.squamous LM Ql (Urine sed) 0 SEEN /hpf 0-5 [facility] Thin prep Papanicolaou smear with manual screeningOrdered By: Rosaura De La O on 05-02-2022 Thin prep Papanicolaou smear with manual screening 5 5-15 [facility] Urine blood detectionOrdered By: Rosaura De La O on 05-02-2022 RBC Ql (U) Negative Negative [facility] RBC Ql (U) 0 SEEN /hpf 0-5 [facility] Urine clarityOrdered By: Jonny foxvalerie De La O on 05-02-2022 Clarity (U) Clear Clear [facility] Urine color determinationOrd ered By: Rosaura De La O on 05-02-2022 Color (U) Straw Yellow [facility] Urine glucose detectionOrder ed By: Rosaura De La O on 05-02-2022 Glucose Ql (U) Normal mg/dl Normal [facility] Urine leukocyte esterase det ection by dipstickOrdered By: Rosaura De La O on 05-02-2022 Leukocyte esterase Test strip Ql (U) 25 /ul Negative [facility] Urine pHOrdered By: Rosaura De La O on 05-02-2022 pH (U) 6.0 [pH] 5.0 - 8.0 [facility] Urine sediment bacteria coun t by microscopy (number/high power field)Ordered By: Rosaura De La O on 05-02-2022 Bacteria LM.HPF (Urine sed) [#/Area] 0 /[HPF] None Seen [facility] Urine specific gravity measu rementOrdered By: Rosaura De La O on 05-02-2022 Specific gravity (U) [Rel density] 1.010 1.002-1.030 [facility] Urobilinogen Auto test strip Ql (U)Ordered By: Rosaura De La O on 05-02-2022 Urobilinogen Ql (U) Normal mg/dl Normal [facility] Absolute lymphocyte counton 12-15-2021 Lymphocytes Auto (Unsp spec) [#/Vol] 1.73 10*3/uL 0.83-4.51 [facility] Work Phone: Basophil percentageon 2021 Basophils/100 WBC (Bld) 0.9 % 0-1 [facility] Work Phone: Bilirubin [Mass/Vol] 1.10 mg/dL 0.20-1.00 [facility] Work Phone: Comment on above: For patients on eltr ombopag therapy, use of Dimension [place] TBIL is not recommended. Chloride [Moles/Vol] 98 mmol/L 98-107 [facility] Work Phone: [phone] Eosinophils/100 WBC (Bld) 3.1 % 0-5 [facility] Work Phone: [phone] Glucose [Mass/Vol] 147 mg/dL 74-106 [facility] Work Phone: [phone] Comment on above: Fasting Glucose resu lt greater than or equal to 126 mg/dL suggests DIABETES MELLITUS per A.D.A. criteria. Neutrophils (Bld) [#/Vol] 6.1 10*3/uL 2.0-7.7 [facility] Work Phone: [phone] Neutrophils/100 WBC (Bld) 63.1 % 47-70 [facility] Work Phone: [phone] Potassium [Moles/Vol] 3.8 mmol/L 3.5-5.1 [facility] Work Phone: Protein [Mass/Vol] 7.3 g/dL 6.4-8.2 [facility] Work Phone: [phone] Sodium [Moles/Vol] 137 mmol/L 136-145 [facility] Work Phone: WBC (Bld) [#/Vol] 9.7 10*3/uL 4.4-11.0 [facility] Work Phone: Blood erythrocytes count (nu mber/volume)on 12-15-2021 RBC (Bld) [#/Vol] 5.10 10*6/uL 4.6-6.2 [facility] Work Phone: [phone] Blood hemoglobin measurement (mass/volume)on 12-15-2021 Hemoglobin (Bld) [Mass/Vol] 16.0 g/dL 13.0-16.5 [facility] Work Phone: [phone] Blood lymphocytes/100 leukoc yteson 12-15-2021 Lymphocytes/100 WBC (Bld) 17.8 % 19-41 [facility] Work Phone: [phone] Blood monocytes/100 leukocyt eson 12-15-2021 Monocytes/100 WBC (Bld) 14.7 % 0-10 [facility] Work Phone: Blood platelet mean volumeon 12-15-2021 Platelet mean volume (Bld) [Entitic vol] 11.0 fL 6.2-12.0 [facility] Work Phone: Determination of erythrocyte mean corpuscular volume (MCV)on 12-15-2021 MCV (RBC) [Entitic vol] 92.7 fL 80-94 [facility] Work Phone: Hematocrit Auto (Bld) [Volum e fraction]on 12-15-2021 Hematocrit (Bld) [Volume fraction] 47.3 % 40-54 [facility] Work Phone: Laboratory - Chemistry and C hemistry - challengeon 12-15-2021 ALP [Catalytic activity/Vol] 103 U/L 45-117 [facility] Work Phone: ALT [Catalytic activity/Vol] 35 U/L 16-61 [facility] Work Phone: CO2 [Moles/Vol] 32.0 mmol/L 21.0-32.0 [facility] Work Phone: Globulin (S) [Mass/Vol] 3.7 g/dL 2.2-4.2 [facility] Work Phone: Magnesium [Mass/Vol] 2.0 mg/dL 1.6-2.6 [facility] Work Phone: Urea nitrogen/Creatinine [Mass ratio] 19.3 mg/mg 10-20 [facility] Work Phone: Laboratory - Hematology and Cell countson 12-15-2021 Erythrocyte distribution width (RBC) [Entitic vol] 47.4 fL 35.1-43.9 [facility] Work Phone: Erythrocyte distribution width (RBC) [Ratio] 13.8 % 11.6-14.6 [facility] Work Phone: [phone] Immature granulocytes/100 WBC (Bld) 0.400 % 0.0-0.9 [facility] Work Phone: Comment on above: IG% - Immature Granu locytes (promyelocytes, myelocytes and metamyelocytes) > 1% indicates that a LEFT SHIFT is Present. MCH (RBC) [Entitic mass] 31.4 pg 27.0-32.0 [facility] Work Phone: Nucleated RBC/100 WBC (Bld) [Ratio] 0 % 0-5 [facility] Work Phone: MCHC Auto (RBC) [Mass/Vol]on 12-15-2021 MCHC (RBC) [Mass/Vol] 33.8 g/dL 32-36 [facility] Work Phone: No Panel Informationon 12-15 Estimated Creatinine Clearance Calc 75.67 ml/min [facility] Work Phone: Estimated GFR (MDRD) Amer 90 mL/min >60 [facility] Work Phone: Comment on above: GFR Calc Estimated GFR (MDRD) Non-Af Amer 74 mL/min >60 [facility] Work Phone: Comment on above: Non- GFR Calc Platelets bldon 12-15-2021 Platelets (Bld) [#/Vol] 187 10*3/uL 150-450 [facility] Work Phone: Serum or plasma albumin leyla urement (mass/volume)on 12-15-2021 Albumin [Mass/Vol] 3.6 g/dL 3.2-5.0 [facility] Work Phone: Serum or plasma albumin/glob ulin mass ratioon 12-15-2021 Albumin/Globulin [Mass ratio] 1.0 {ratio} 0.9-2.4 [facility] Work Phone: Serum or plasma calcium leyla urement (mass/volume)on 12-15-2021 Calcium [Mass/Vol] 9.2 mg/dL 8.5-10.1 [facility] Work Phone: Serum or plasma creatinine m easurement (mass/volume)on 12-15-2021 Creatinine [Mass/Vol] 1.09 mg/dL 0.70-1.30 [facility] Work Phone: Comment on above: The validity of the calculated GFR & GFRAA in patients over 70 years has not been determined. Clinical correlation is essential. Serum or plasma urea nitroge n measurement (mass/volume)on 12-15-2021 Urea nitrogen [Mass/Vol] 21 mg/dL 7-18 [facility] Work Phone: Thin prep Papanicolaou smear with manual screeningon 12-15-2021 Thin prep Papanicolaou smear with manual screening 29 U/L 15-37 [facility] Work Phone: Thin prep Papanicolaou smear with manual screening 7 5-15 [facility] Work Phone: Basophil percentageon 2021 Basophil percentage 3.6 mg/dL 2.5-4.9 [facility] Work Phone: Basophil percentageon 2021 Cholesterol [Mass/Vol] 131 mg/dL <200 [facility] Work Phone: Comment on above: <200 mg/dL Desirable 200-240 mg/dL Borderline >240 mg/dL High Risk Triglyceride [Mass/Vol] 89 mg/dL <199 [facility] Work Phone: Comment on above: The drugs N-Acetylcy steine and Metamizole may falsely depress this assay.Serum Triglycerides Reference Interval Normal <150 mg/dL Borderline high 150 - 199 mg/dL High 200 - 499 mg/dL Very High > or = 500 mg/dL Laboratory - Chemistry and C hemistry - challengeon 12-11-2021 Natriuretic peptide B (Bld) [Mass/Vol] 189.6 pg/mL 0-100 [facility] Work Phone: No Panel Informationon 12-11 Thyroid Stimulating Hormone (TSH) 1.29 uIU/mL 0.358-3.74 [facility] Work Phone: Serum or plasma cholesterol in HDL measurement (mass/volume)on 12-11-2021 Cholesterol in HDL [Mass/Vol] 36 mg/dL >40 [facility] Work Phone: Comment on above: The drugs N-Acetylcy steine and Metamizole may falsely depress this assay. Reference Range HDL <40 mg/dL Low HDL Cholesterol HDL >or= 60 mg/dL High HDL Cholesterol Serum or plasma cholesterol in VLDL measurement (mass/volume)on 12-11-2021 Cholesterol in VLDL [Mass/Vol] 18 mg/dL 5-40 [facility] Work Phone: Serum or plasma low density lipoprotein (LDL) cholesterol measurement (mass/volume)on 12-11-2021 Cholesterol in LDL [Mass/Vol] 77 mg/dL 0-130 [facility] Work Phone: Absolute lymphocyte counton 12-10-2021 Lymphocytes Auto (Unsp spec) [#/Vol] 1.37 10*3/uL 0.83-4.51 [facility] Work Phone: Basophil percentageon 2021 Basophils/100 WBC (Bld) 1.1 % 0-1 [facility] Work Phone: Bilirubin [Mass/Vol] 1.10 mg/dL 0.20-1.00 [facility] Work Phone: Comment on above: For patients on eltr ombopag therapy, use of Dimension [place] TBIL is not recommended. Chloride [Moles/Vol] 107 mmol/L 98-107 [facility] Work Phone: Eosinophils/100 WBC (Bld) 2.9 % 0-5 [facility] Work Phone: Glucose [Mass/Vol] 221 mg/dL 74-106 [facility] Work Phone: Comment on above: Glucose result great er than or equal to 200 mg/dLsuggests DIABETES MELLITUS per A.D.A. criteria. Neutrophils (Bld) [#/Vol] 5.0 10*3/uL 2.0-7.7 [facility] Work Phone: Neutrophils/100 WBC (Bld) 68.5 % 47-70 [facility] Work Phone: [phone] Potassium [Moles/Vol] 3.4 mmol/L 3.5-5.1 [facility]: Protein [Mass/Vol] 7.5 g/dL 6.4-8.2 [facility]: [phone] Sodium [Moles/Vol] 140 mmol/L 136-145 [facility] Work Phone: [phone] WBC (Bld) [#/Vol] 7.3 10*3/uL 4.4-11.0 [facility] Work Phone: Blood erythrocytes count (nu mber/volume)on 12-10-2021 RBC (Bld) [#/Vol] 5.16 10*6/uL 4.6-6.2 [facility] Work [facility]: Blood hemoglobin measurement (mass/volume)on 12-10-2021 Hemoglobin (Bld) [Mass/Vol] 15.9 g/dL 13.0-16.5 [facility] Work Phone: Blood lymphocytes/100 leukoc yteson 12-10-2021 Lymphocytes/100 WBC (Bld) 18.9 % 19-41 [facility] Work Phone: Blood monocytes/100 leukocyt eson 12-10-2021 Monocytes/100 WBC (Bld) 8.3 % 0-10 [facility] Work Phone: Blood platelet mean volumeon 12-10-2021 Platelet mean volume (Bld) [Entitic vol] 11.2 fL 6.2-12.0 [facility] Work Phone: Determination of erythrocyte mean corpuscular volume (MCV)on 12-10-2021 MCV (RBC) [Entitic vol] 92.8 fL 80-94 [facility] Work Phone: Hematocrit Auto (Bld) [Volum e fraction]on 12-10-2021 Hematocrit (Bld) [Volume fraction] 47.9 % 40-54 [facility] Work Phone: Laboratory - Chemistry and C hemistry - challengeon 12-10-2021 ALP [Catalytic activity/Vol] 93 U/L 45-117 [facility] Work Phone: [phone] ALT [Catalytic activity/Vol] 33 U/L 16-61 [facility] Work Phone: [phone] CO2 [Moles/Vol] 26.0 mmol/L 21.0-32.0 [facility] Work Phone: Globulin (S) [Mass/Vol] 3.6 g/dL 2.2-4.2 [facility] Work Phone: Natriuretic peptide B (Bld) [Mass/Vol] 325.6 pg/mL 0-100 [facility] Work Phone: Urea nitrogen/Creatinine [Mass ratio] 13.0 mg/mg 10-20 [facility] Work Phone: Laboratory - Hematology and Cell countson 12-10-2021 Erythrocyte distribution width (RBC) [Entitic vol] 49.8 fL 35.1-43.9 [facility] Work Phone: Erythrocyte distribution width (RBC) [Ratio] 14.6 % 11.6-14.6 [facility] Work Phone: Immature granulocytes/100 WBC (Bld) 0.300 % 0.0-0.9 [facility] Work Phone: Comment on above: IG% - Immature Granu locytes (promyelocytes, myelocytes and metamyelocytes) > 1% indicates that a LEFT SHIFT is Present. MCH (RBC) [Entitic mass] 30.8 pg 27.0-32.0 [facility] Work Phone: Nucleated RBC/100 WBC (Bld) [Ratio] 0 % 0-5 [facility] Work Phone: MCHC Auto (RBC) [Mass/Vol]on 12-10-2021 MCHC (RBC) [Mass/Vol] 33.2 g/dL 32-36 [facility] Work Phone: No Panel Informationon 12-10 Troponin I High Sensitivity 17 pg/mL 3.0-78.0 [facility] Work Phone: Comment on above: Please Note: New Denise t Units and Gender Specific Reference Ranges. For more information see Policy Stat Procedure [place] High Sensitivity Troponin (TNIH) and attachments. Troponin I High Sensitivity 20 pg/mL 3.0-78.0 [facility] Work Phone: Comment on above: Please Note: New Denise t Units and Gender Specific Reference Ranges. For more information see Policy Stat Procedure [place] High Sensitivity Troponin (TNIH) and attachments. Estimated Creatinine Clearance Calc 67.06 ml/min [facility] Work Phone: Estimated GFR (MDRD) Amer 78 mL/min >60 [facility] Work Phone: Comment on above: GFR Calc Estimated GFR (MDRD) Non-Af Amer 65 mL/min >60 [facility] Work Phone: Comment on above: Non- GFR Calc Platelets bldon 12-10-2021 Platelets (Bld) [#/Vol] 170 10*3/uL 150-450 [facility] Work Phone: Serum or plasma albumin leyla urement (mass/volume)on 12-10-2021 Albumin [Mass/Vol] 3.9 g/dL 3.2-5.0 [facility] Work Phone: Serum or plasma albumin/glob ulin mass ratioon 12-10-2021 Albumin/Globulin [Mass ratio] 1.1 {ratio} 0.9-2.4 [facility] Work Phone: Serum or plasma calcium leyla urement (mass/volume)on 12-10-2021 Calcium [Mass/Vol] 9.4 mg/dL 8.5-10.1 [facility] Work Phone: Serum or plasma creatinine m easurement (mass/volume)on 12-10-2021 Creatinine [Mass/Vol] 1.23 mg/dL 0.70-1.30 [facility] Work Phone: Comment on above: The validity of the calculated GFR & GFRAA in patients over 70 years has not been determined. Clinical correlation is essential. Serum or plasma urea nitroge n measurement (mass/volume)on 12-10-2021 Urea nitrogen [Mass/Vol] 16 mg/dL 7-18 [facility] Work Phone: Thin prep Papanicolaou smear with manual screeningon 12-10-2021 Thin prep Papanicolaou smear with manual screening 29 U/L 15-37 [facility] Work Phone: Thin prep Papanicolaou smear with manual screening 7 5-15 [facility] Work Phone: Absolute lymphocyte counton 11-26-2021 Lymphocytes Auto (Unsp spec) [#/Vol] 1.44 10*3/uL 0.83-4.51 [facility] Work Phone: Basophil percentageon 2021 Basophils/100 WBC (Bld) 0.8 % 0-1 [facility] Work Phone: [phone] Chloride [Moles/Vol] 106 mmol/L 98-107 [facility] Work Phone: Eosinophils/100 WBC (Bld) 1.6 % 0-5 [facility] Work Phone: Glucose [Mass/Vol] 185 mg/dL 74-106 [facility] Work Phone: Comment on above: Fasting Glucose resu lt greater than or equal to 126 mg/dL suggests DIABETES MELLITUS per A.D.A. criteria. Neutrophils (Bld) [#/Vol] 4.9 10*3/uL 2.0-7.7 [facility] Work Phone: Neutrophils/100 WBC (Bld) 66.2 % 47-70 [facility] Work Phone: Potassium [Moles/Vol] 4.2 mmol/L 3.5-5.1 [facility] Work Phone: Sodium [Moles/Vol] 139 mmol/L 136-145 [facility] Work Phone: WBC (Bld) [#/Vol] 7.4 10*3/uL 4.4-11.0 [facility] Work Phone: Blood erythrocytes count (nu mber/volume)on 11-26-2021 RBC (Bld) [#/Vol] 5.35 10*6/uL 4.6-6.2 [facility] Work Phone: Blood hemoglobin measurement (mass/volume)on 11-26-2021 Hemoglobin (Bld) [Mass/Vol] 16.1 g/dL 13.0-16.5 [facility] Work Phone: Blood lymphocytes/100 leukoc yteson 11-26-2021 Lymphocytes/100 WBC (Bld) 19.4 % 19-41 [facility] Work Phone: Blood monocytes/100 leukocyt eson 11-26-2021 Monocytes/100 WBC (Bld) 11.6 % 0-10 [facility] Work Phone: Blood platelet mean volumeon 11-26-2021 Platelet mean volume (Bld) [Entitic vol] 11.4 fL 6.2-12.0 [facility] Work Phone: Determination of erythrocyte mean corpuscular volume (MCV)on 11-26-2021 MCV (RBC) [Entitic vol] 93.5 fL 80-94 [facility] Work Phone: Hematocrit Auto (Bld) [Volum e fraction]on 11-26-2021 Hematocrit (Bld) [Volume fraction] 50.0 % 40-54 [facility] Work Phone: Laboratory - Chemistry and C hemistry - challengeon 11-26-2021 CO2 [Moles/Vol] 29.0 mmol/L 21.0-32.0 [facility] Work Phone: Magnesium [Mass/Vol] 2.1 mg/dL 1.6-2.6 [facility] Work Phone: Urea nitrogen/Creatinine [Mass ratio] 14.3 mg/mg 10-20 [facility] Work Phone: Laboratory - Hematology and Cell countson 11-26-2021 Erythrocyte distribution width (RBC) [Entitic vol] 48.0 fL 35.1-43.9 [facility] Work Phone: Erythrocyte distribution width (RBC) [Ratio] 14.0 % 11.6-14.6 [facility] Work Phone: Immature granulocytes/100 WBC (Bld) 0.400 % 0.0-0.9 [facility] Work Phone: Comment on above: IG% - Immature Granu locytes (promyelocytes, myelocytes and metamyelocytes) > 1% indicates that a LEFT SHIFT is Present. MCH (RBC) [Entitic mass] 30.1 pg 27.0-32.0 [facility] Work Phone: Nucleated RBC/100 WBC (Bld) [Ratio] 0 % 0-5 [facility] Work Phone: MCHC Auto (RBC) [Mass/Vol]on 11-26-2021 MCHC (RBC) [Mass/Vol] 32.2 g/dL 32-36 [facility] Work Phone: No Panel Informationon 11-26 Estimated GFR (MDRD) Amer 87 mL/min >60 [facility] Work Phone: Comment on above: GFR Calc Estimated GFR (MDRD) Non-Af Amer 72 mL/min >60 [facility] Work Phone: Comment on above: Non- GFR Calc Thyroid Stimulating Hormone (TSH) 2.05 uIU/mL 0.358-3.74 [facility] Work Phone: Platelets bldon 11-26-2021 Platelets (Bld) [#/Vol] 126 10*3/uL 150-450 [facility] Work Phone: Serum or plasma calcium leyla urement (mass/volume)on 11-26-2021 Calcium [Mass/Vol] 9.7 mg/dL 8.5-10.1 [facility] Work Phone: Serum or plasma creatinine m easurement (mass/volume)on 11-26-2021 Creatinine [Mass/Vol] 1.12 mg/dL 0.70-1.30 [facility] Work Phone: Comment on above: The validity of the calculated GFR & GFRAA in patients over 70 years has not been determined. Clinical correlation is essential. Serum or plasma urea nitroge n measurement (mass/volume)on 11-26-2021 Urea nitrogen [Mass/Vol] 16 mg/dL 7-18 [facility] Work Phone: Thin prep Papanicolaou smear with manual screeningon 11-26-2021 Thin prep Papanicolaou smear with manual screening 4 08-26 [facility] Work Phone: CT SPINE CERVICAL W/O CONTRA STon 05-25-2021 CT SPINE CERVICAL W/O CONTRAST ORIGINAL EXAMINATION: CT OF THE CERVICAL SPINE WITHOUT CONTRAST TECHNIQUE: Axial followed by coronal and sagittal reformatted CT images were obtained without intravenous contrast. DICOM images are available. One or more of the following dose reduction techniques were used: automated exposure control, adjustment of the mA and/or kV according to patient size, or use of iterative reconstruction. COMPARISON: MRI cervical spine 02/03/2021. Prior CT cervical spine dated 02/03/2021 could not be retrieved from PACS at the time of this dictation. HISTORY: ORDERING SYSTEM PROVIDED HISTORY: Reason for Exam: Cervical spine fusion FINDINGS: Alignment: Straightening of the normal cervical lordosis. Trace retrolisthesis of C5 on C6. Vertebrae: No acute/recent or chronic fracture. Endplate degenerative changes are most pronounced at C5-C6. Surgery: Interval posterior decompression C3 and C4. Posterior fixation of C3 and C4 with intact well position bilateral transpedicular screws and vertical stabilization rods. Associated susceptibility artifact. 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 Discs: Severe disc height loss C5-C6, moderate height loss of C6-C7 and mild height loss at C3-C4 noted. C2-C3 : Posterior decompression. OPLL. The central canal and foramina are adequately patent. C3-C4: Posterior decompression. Moderate bilateral facet arthropathy. OPLL. The central canal and foramina are adequately patent. C4-C5 : A small diffuse disc osteophyte complex causes mild central canal stenosis. The foramina are adequately patent. C5-C6 : A diffuse disc osteophyte complex causes severe central canal stenosis with remodeling of the spinal cord. Uncovertebral and facet arthropathy results in severe bilateral foraminal narrowing. C6-C7: Small central disc protrusion.. The central canal and foramina are adequately patent. C7-T1: A right subarticular osteophyte causes right lateral recess narrowing. The central canal and foramina are adequately patent.. Paraspinal soft tissues: Unremarkable. Visualized posterior fossa: Unremarkable. Visualized neck: Unremarkable. Visualized lung apices: Unremarkable. IMPRESSION: 1. Interval posterior decompression and posterior fixation at C3 and C4. 2. C4-C5: Mild central canal stenosis. 3. C5-C6: Severe central canal stenosis with remodeling of the spinal cord and severe bilateral foraminal narrowing. 4. C7-T1: Right lateral recess narrowing. 5. OPLL C2 through C4. Interpreted by: Radha Terrazas MD Preliminary Report By: Radha Terrazas MD Electronically signed By Radha Terrazas MD Dictated Date: 05/25/2021 8:44:48 AM Prelim Date: 05/25/2021 8:59:47 AM Sign Date: 05/25/2021 8:59:47 AM Ordering Provider: BJ [place] [facility] ([place]) .Auto Diffon 02-08-2021 Basophil, Absolute 0.00 10 3/mcL Normal 0.00-0.27 [facility] ([place]) Comment on above: Performed By: #### C BC, ADIFF, ANEU, BMP, GFR ####[address] [address] Basophils/100 WBC (Bld) 0.4 % Normal 0.0-2.5 [facility] ([place]) Comment on above: Performed By: #### C BC, ADIFF, ANEU, BMP, GFR ####[address] [address] Eosinophil, Absolute 0.00 10 3/mcL Normal 0.00-0.65 [facility] ([place]) Comment on above: Performed By: #### C BC, ADIFF, ANEU, BMP, GFR ####[address] [address] Eosinophils/100 WBC (Bld) 0.1 % Normal 0.0-6.0 [facility] ([place]) Comment on above: Performed By: #### C BC, ADIFF, ANEU, BMP, GFR ####[address] [address] Lymphocyte, Absolute 1.00 10 3/mcL Normal 0.90-4.32 [facility] ([place]) Comment on above: Performed By: #### C BC, ADIFF, ANEU, BMP, GFR ####[address] [address] Lymphocytes/100 WBC (Bld) 9.7 % Low 20.0-40.0 [facility] ([place]) Comment on above: Performed By: #### C BC, ADIFF, ANEU, BMP, GFR ####[address] [address] Monocyte, Absolute 1.30 10 3/mcL Normal 0.09-1.40 [facility] ([place]) Comment on above: Performed By: #### C BC, ADIFF, ANEU, BMP, GFR ####[address] [address] Monocytes/100 WBC (Bld) 11.8 % Normal 2.0-13.0 [facility] ([place]) Comment on above: Performed By: #### C BC, ADIFF, ANEU, BMP, GFR ####[address] [address] Neutrophils/100 WBC (Bld) 78.0 % High 50.0-75.0 [facility] ([place]) Comment on above: Performed By: #### C BC, ADIFF, ANEU, BMP, GFR ####[address] [address] .GFRon 02-08-2021 GFR >60 Normal [facility] ([place]) Comment on above: Result Comment: GFR Population mean for , Non- Americans Ages 20-29 = 116 mL/min/1.73 sq.m. Ages 30-39 = 107 mL/min/1.73 sq.m. Ages 40-49 = 99 mL/min/1.73 sq.m. Ages 50-59 = 93 mL/min/1.73 sq.m. Ages 60-69 = 85 mL/min/1.73 sq.m. Ages 70+ = 75 mL/min/1.73 sq.m. Chronic Kidney Disease: Less than 60 mL/min/1.73 square meters End Stage Renal Disease: Less than 15 mL/min/1.73 square meters Performed By: #### C BC, ADIFF, ANEU, BMP, GFR ####[place] [address] GFR Non- >60 Normal [facility] ([place]) Comment on above: Result Comment: GFR Population mean for , Non- Americans Ages 20-29 = 116 mL/min/1.73 sq.m. Ages 30-39 = 107 mL/min/1.73 sq.m. Ages 40-49 = 99 mL/min/1.73 sq.m. Ages 50-59 = 93 mL/min/1.73 sq.m. Ages 60-69 = 85 mL/min/1.73 sq.m. Ages 70+ = 75 mL/min/1.73 sq.m. Chronic Kidney Disease: Less than 60 mL/min/1.73 square meters End Stage Renal Disease: Less than 15 mL/min/1.73 square meters Performed By: #### C BC, ADIFF, ANEU, BMP, GFR ####[address] [address] .NEUABSon 02-08-2021 Neutrophil, Absolute 8.30 10 3/mcL High 2.25-8.10 [facility] ([place]) Comment on above: Performed By: #### C BC, ADIFF, ANEU, BMP, GFR ####[address] [address] BMPon 02-08-2021 BUN/Creatinine Ratio 36.2 ratio High 10.0-22.0 [facility] ([place]) Comment on above: Performed By: #### C BC, ADIFF, ANEU, BMP, GFR ####[address] [address] Calcium [Mass/Vol] 9.2 mg/dL Normal 8.7-10.4 [facility] ([place]) Comment on above: Result Comment: No te - New Reference Range in effect 19 Performed By: #### C BC, ADIFF, ANEU, BMP, GFR ####[place] [address] Chloride [Moles/Vol] 104 mmol/L Normal 98-110 [facility] ([place]) Comment on above: Performed By: #### C BC, ADIFF, ANEU, BMP, GFR ####[place] [address] CO2 [Moles/Vol] 28 mmol/L Normal 22-32 [facility] ([place]) Comment on above: Performed By: #### C BC, ADIFF, ANEU, BMP, GFR ####[address] [address] Creatinine [Mass/Vol] 0.80 mg/dL Normal 0.60-1.40 [facility] ([place]) Comment on above: Performed By: #### C BC, ADIFF, ANEU, BMP, GFR ####[address] [address] Electrolyte Balance 6.0 mEq/L Normal 4.0-15.0 [facility] ([place]) Comment on above: Performed By: #### C BC, ADIFF, ANEU, BMP, GFR ####[address] [address] Glucose [Mass/Vol] 209 mg/dL High 70-110 [facility] ([place]) Comment on above: Performed By: #### C BC, ADIFF, ANEU, BMP, GFR ####[place] [address] Potassium [Moles/Vol] 4.2 mmol/L Normal 3.5-5.0 [facility] ([place]) Comment on above: Performed By: #### C BC, ADIFF, ANEU, BMP, GFR ####[place] [address] Sodium [Moles/Vol] 138 mmol/L Normal 136-145 [facility] ([place]) Comment on above: Performed By: #### C BC, ADIFF, ANEU, BMP, GFR ####[place] [address] Urea nitrogen [Mass/Vol] 29.0 mg/dL High 8.0-22.0 [facility] ([place]) Comment on above: Performed By: #### C BC, ADIFF, ANEU, BMP, GFR ####[place] [address] CBCon 02-08-2021 Erythrocyte distribution width (RBC) [Ratio] 13.4 % Normal 11.5-15.5 [facility] ([place]) Comment on above: Performed By: #### C BC, ADIFF, ANEU, BMP, GFR ####[place] [address] Hematocrit (Bld) [Volume fraction] 38.1 % Low 40.0-52.0 [facility] ([place]) Comment on above: Performed By: #### C BC, ADIFF, ANEU, BMP, GFR ####[place] [address] Hgb 12.9 G/dL Low 13.0-17.5 [facility] ([place]) Comment on above: Performed By: #### C BC, ADIFF, ANEU, BMP, GFR ####[place] [address] MCH (RBC) [Entitic mass] 32.0 pg Normal 27.0-33.0 [facility] ([place]) Comment on above: Performed By: #### C BC, ADIFF, ANEU, BMP, GFR ####[place] [address] MCHC 33.8 G/dL Normal 32.0-36.0 [facility] ([place]) Comment on above: Performed By: #### C BC, ADIFF, ANEU, BMP, GFR ####[place] [address] MCV (RBC) [Entitic vol] 94.7 fL Normal 81.0-100.0 [facility] ([place]) Comment on above: Performed By: #### C BC, ADIFF, ANEU, BMP, GFR ####[place] [address] Platelet 163 10 3/mcL Normal 150-450 [facility] ([place]) Comment on above: Performed By: #### C BC, ADIFF, ANEU, BMP, GFR ####[place] [address] Platelet mean volume (Bld) [Entitic vol] 9.8 fL Normal 6.4-10.5 [facility] ([place]) Comment on above: Performed By: #### C BC, ADIFF, ANEU, BMP, GFR ####[place] [address] RBC 4.02 10 6/mcL Low 4.50-6.00 [facility] ([place] Comment on above: Performed By: #### C BC, ADIFF, ANEU, BMP, GFR ####[place] [address] WBC 10.70 10 3/mcL Normal 4.50-10.80 [facility] ([place]) Comment on above: Performed By: #### C BC, ADIFF, ANEU, BMP, GFR ####[place] [address] CT THORAX W/O CONTRASTon CT THORAX W/O CONTRAST ORIGINAL EXAMINATION: CT OF THE CHEST WITHOUT CONTRAST 02/08/2021 10:44 am TECHNIQUE: CT of the chest was performed without the administration of intravenous contrast. Multiplanar reformatted images are provided for review. Dose modulation, iterative reconstruction, and/or weight based adjustment of the mA/kV was utilized to reduce the radiation dose to as low as reasonably achievable. COMPARISON: Chest radiograph 12/06/2008 HISTORY: ORDERING SYSTEM PROVIDED HISTORY: Reason for Exam: CT thorax reported fluid in esophagus FINDINGS: There may be mild eccentric wall thickening of the mid/distal esophagus. Tiny hiatal hernia. Heart and great vessels are normal in size. No pericardial effusion. Status post sternotomy. No axillary or mediastinal adenopathy. No focal consolidation, pulmonary mass, suspicious solid nodule or pleural effusion. There may be partial visualization of a superior left renal pole calculus. Mild appearing anterior wedge deformity of T11, nonacute appearing and suspect unchanged from 2008. Multilevel anterior thoracic endplate flowing syndesmophytes, as well as bridging ossification the inter spinous and supraspinous ligaments. IMPRESSION: Mild eccentric wall thickening of the mid/distal esophagus. Consider esophagram or direct visualization. I have personally reviewed the images of this examination and agree with the resident's findings and interpretation. Interpreted by: Jorje Hdz MD Preliminary Report By: Ben Bueno Electronically signed By Jorje Hdz MD Dictated Date: 02/08/2021 10:50:27 AM Prelim Date: 02/08/2021 2:09:49 PM Sign Date: 02/08/2021 2:09:49 PM Ordering Provider: [facility] ([place]) LABORATORYOrdered By: SYSTEM SYSTEM on 02-08-2021 Basophils (Bld) [#/Vol] 0.00 103/mcL Invalid Interpretation Code 0.00 - 0.27 10^3/mcL AH Remisol SS Basophils/100 WBC (Bld) 0.4 % Invalid Interpretation Code 0.0 - 2.5 % AH Remisol SS Calcium [Mass/Vol] 9.2 mg/dL Invalid Interpretation Code 8.7 - 10.4 mg/dL AH ADM SS Chloride [Moles/Vol] 104 mmol/L Invalid Interpretation Code 98 - 110 mEq/L AH ADM SS CO2 [Moles/Vol] 28 mmol/L Invalid Interpretation Code 22 - 32 mEq/L AH ADM SS Creatinine [Mass/Vol] 0.80 mg/dL Invalid Interpretation Code 0.60 - 1.40 mg/dL AH ADM SS Electrolyte Balance 6.0 mEq/L Invalid Interpretation Code 4.0 - 15.0 mEq/L AH ADM SS Eosinophils (Bld) [#/Vol] 0.00 103/mcL Invalid Interpretation Code 0.00 - 0.65 10^3/mcL AH Remisol SS Eosinophils/100 WBC (Bld) 0.1 % Invalid Interpretation Code 0.0 - 6.0 % AH Remisol SS Erythrocyte distribution width (RBC) [Ratio] 13.4 % Invalid Interpretation Code 11.5 - 15.5 % AH Remisol SS GFR/1.73 sq M.predicted among blacks MDRD (S/P/Bld) [Vol rate/Area] ml/min/1.73sqm Invalid Interpretation Code Chemistry S GFR/1.73 sq M.predicted among non-blacks MDRD (S/P/Bld) [Vol rate/Area] ml/min/1.73sqm Invalid Interpretation Code Chemistry S Glucose [Mass/Vol] 209 mg/dL Invalid Interpretation Code 70 - 110 mg/dL AH ADM SS Hematocrit (Bld) [Volume fraction] 38.1 % Invalid Interpretation Code 40.0 - 52.0 % AH Remisol SS Hemoglobin (Bld) [Mass/Vol] 12.9 G/dL Invalid Interpretation Code 13.0 - 17.5 G/dL AH Remisol SS Lymphocytes (Bld) [#/Vol] 1.00 103/mcL Invalid Interpretation Code 0.90 - 4.32 10^3/mcL AH Remisol SS Lymphocytes/100 WBC (Bld) 9.7 % Invalid Interpretation Code 20.0 - 40.0 % AH Remisol SS MCH (RBC) [Entitic mass] 32.0 pg Invalid Interpretation Code 27.0 - 33.0 pg AH Remisol SS MCHC (RBC) [Mass/Vol] 33.8 G/dL Invalid Interpretation Code 32.0 - 36.0 G/dL AH Remisol SS MCV (RBC) [Entitic vol] 94.7 fL Invalid Interpretation Code 81.0 - 100.0 fL AH Remisol SS Monocytes (Bld) [#/Vol] 1.30 103/mcL Invalid Interpretation Code 0.09 - 1.40 10^3/mcL AH Remisol SS Monocytes/100 WBC (Bld) 11.8 % Invalid Interpretation Code 2.0 - 13.0 % AH Remisol SS Neutrophils (Bld) [#/Vol] 8.30 103/mcL Invalid Interpretation Code 2.25 - 8.10 10^3/mcL AH Remisol SS Neutrophils/100 WBC (Bld) 78.0 % Invalid Interpretation Code 50.0 - 75.0 % AH Remisol SS Platelet mean volume (Bld) [Entitic vol] 9.8 fL Invalid Interpretation Code 6.4 - 10.5 fL AH Remisol SS Platelets (Bld) [#/Vol] 163 103/mcL Invalid Interpretation Code 150 - 450 10^3/mcL AH Remisol SS Potassium [Moles/Vol] 4.2 mmol/L Invalid Interpretation Code 3.5 - 5.0 mEq/L AH ADM SS RBC (Bld) [#/Vol] 4.02 106/mcL Invalid Interpretation Code 4.50 - 6.00 10^6/mcL AH Remisol SS Sodium [Moles/Vol] 138 mmol/L Invalid Interpretation Code 136 - 145 mEq/L AH ADM SS Urea nitrogen [Mass/Vol] 29.0 mg/dL Invalid Interpretation Code 8.0 - 22.0 mg/dL AH ADM SS Urea nitrogen/Creatinine [Mass ratio] 36.2 ratio Invalid Interpretation Code 10.0 - 22.0 ratio AH ADM SS WBC (Bld) [#/Vol] 10.70 103/mcL Invalid Interpretation Code 4.50 - 10.80 10^3/mcL AH Remisol SS .Auto Diffon 02-07-2021 Basophil, Absolute 0.00 10 3/mcL Normal 0.00-0.27 [facility] ([place]) Comment on above: Performed By: #### C BC, ADIFF, ANEU, BMP, GFR ####[address] [address] Basophils/100 WBC (Bld) 0.1 % Normal 0.0-2.5 [facility] ([place]) Comment on above: Performed By: #### C BC, ADIFF, ANEU, BMP, GFR ####[address] [address] Eosinophil, Absolute 0.00 10 3/mcL Normal 0.00-0.65 [facility] ([place]) Comment on above: Performed By: #### C BC, ADIFF, ANEU, BMP, GFR ####[address] [address] Eosinophils/100 WBC (Bld) 0.0 % Normal 0.0-6.0 [facility] ([place]) Comment on above: Performed By: #### C BC, ADIFF, ANEU, BMP, GFR ####[address] [address] Lymphocyte, Absolute 0.80 10 3/mcL Low 0.90-4.32 [facility] ([place]) Comment on above: Performed By: #### C BC, ADIFF, ANEU, BMP, GFR ####[address] [address] Lymphocytes/100 WBC (Bld) 8.0 % Low 20.0-40.0 [facility] ([place]) Comment on above: Performed By: #### C BC, ADIFF, ANEU, BMP, GFR ####[address] [address] Monocyte, Absolute 0.60 10 3/mcL Normal 0.09-1.40 [facility] ([place]) Comment on above: Performed By: #### C BC, ADIFF, ANEU, BMP, GFR ####[address] [address] Monocytes/100 WBC (Bld) 6.7 % Normal 2.0-13.0 [facility] ([place]) Comment on above: Performed By: #### C BC, ADIFF, ANEU, BMP, GFR ####[address] [address] Neutrophils/100 WBC (Bld) 85.2 % High 50.0-75.0 [facility] ([place]) Comment on above: Performed By: #### C BC, ADIFF, ANEU, BMP, GFR ####[address] [address] .GFRon 02-07-2021 GFR >60 Normal [facility] ([place]) Comment on above: Result Comment: GFR Population mean for , Non- Americans Ages 20-29 = 116 mL/min/1.73 sq.m. Ages 30-39 = 107 mL/min/1.73 sq.m. Ages 40-49 = 99 mL/min/1.73 sq.m. Ages 50-59 = 93 mL/min/1.73 sq.m. Ages 60-69 = 85 mL/min/1.73 sq.m. Ages 70+ = 75 mL/min/1.73 sq.m. Chronic Kidney Disease: Less than 60 mL/min/1.73 square meters End Stage Renal Disease: Less than 15 mL/min/1.73 square meters Performed By: #### C BC, ADIFF, ANEU, BMP, GFR ####[address] [address] GFR Non- >60 Normal [facility] ([place]) Comment on above: Result Comment: GFR Population mean for , Non- Americans Ages 20-29 = 116 mL/min/1.73 sq.m. Ages 30-39 = 107 mL/min/1.73 sq.m. Ages 40-49 = 99 mL/min/1.73 sq.m. Ages 50-59 = 93 mL/min/1.73 sq.m. Ages 60-69 = 85 mL/min/1.73 sq.m. Ages 70+ = 75 mL/min/1.73 sq.m. Chronic Kidney Disease: Less than 60 mL/min/1.73 square meters End Stage Renal Disease: Less than 15 mL/min/1.73 square meters Performed By: #### C BC, ADIFF, ANEU, BMP, GFR ####[address] [address] .NEUABSon 02-07-2021 Neutrophil, Absolute 8.30 10 3/mcL High 2.25-8.10 [facility] ([place] Comment on above: Performed By: #### C BC, ADIFF, ANEU, BMP, GFR ####[address] [address] BMPon 02-07-2021 BUN/Creatinine Ratio 32.5 ratio High 10.0-22.0 [facility] ([place] Comment on above: Performed By: #### C BC, ADIFF, ANEU, BMP, GFR ####[address] [address] Calcium [Mass/Vol] 9.8 mg/dL Normal 8.7-10.4 [facility] ([place]) Comment on above: Result Comment: No te - New Reference Range in effect 19 Performed By: #### C BC, ADIFF, ANEU, BMP, GFR ####[address] [address] Chloride [Moles/Vol] 102 mmol/L Normal 98-110 [facility] ([place] Comment on above: Performed By: #### C BC, ADIFF, ANEU, BMP, GFR ####[address] [address] CO2 [Moles/Vol] 28 mmol/L Normal 22-32 [facility] ([place] Comment on above: Performed By: #### C BC, ADIFF, ANEU, BMP, GFR ####[address] [address] Creatinine [Mass/Vol] 0.77 mg/dL Normal 0.60-1.40 [facility] ([place]) Comment on above: Performed By: #### C BC, ADIFF, ANEU, BMP, GFR ####[address] [address] Electrolyte Balance 10.0 mEq/L Normal 4.0-15.0 [facility] ([place]) Comment on above: Performed By: #### C BC, ADIFF, ANEU, BMP, GFR ####[address] [address] Glucose [Mass/Vol] 210 mg/dL High 70-110 [facility] ([place]) Comment on above: Performed By: #### C BC, ADIFF, ANEU, BMP, GFR ####[address] [address] Potassium [Moles/Vol] 4.4 mmol/L Normal 3.5-5.0 [facility] ([place]) Comment on above: Result Comment: Spec imen slightly hemolyzed. Performed By: #### C BC, ADIFF, ANEU, BMP, GFR ####[address] [address] Sodium [Moles/Vol] 140 mmol/L Normal 136-145 [facility] ([place]) Comment on above: Performed By: #### C BC, ADIFF, ANEU, BMP, GFR ####[place] [address] Urea nitrogen [Mass/Vol] 25.0 mg/dL High 8.0-22.0 [facility] ([place]) Comment on above: Performed By: #### C BC, ADIFF, ANEU, BMP, GFR ####[place] [address] CBCon 02-07-2021 Erythrocyte distribution width (RBC) [Ratio] 13.7 % Normal 11.5-15.5 [facility] ([place] Comment on above: Performed By: #### C BC, ADIFF, ANEU, BMP, GFR ####[place] [address] Hematocrit (Bld) [Volume fraction] 39.7 % Low 40.0-52.0 [facility] ([place] Comment on above: Performed By: #### C BC, ADIFF, ANEU, BMP, GFR ####[place] [address] Hgb 13.3 G/dL Normal 13.0-17.5 [facility] ([place] Comment on above: Performed By: #### C BC, ADIFF, ANEU, BMP, GFR ####[place] [address] MCH (RBC) [Entitic mass] 31.4 pg Normal 27.0-33.0 [facility] ([place] Comment on above: Performed By: #### C BC, ADIFF, ANEU, BMP, GFR ####[place] [address] MCHC 33.5 G/dL Normal 32.0-36.0 [facility] ([place] Comment on above: Performed By: #### C BC, ADIFF, ANEU, BMP, GFR ####[place] [address] MCV (RBC) [Entitic vol] 93.8 fL Normal 81.0-100.0 [facility] ([place] Comment on above: Performed By: #### C BC, ADIFF, ANEU, BMP, GFR ####[address] [address] Platelet 161 10 3/mcL Normal 150-450 [facility] ([place] Comment on above: Performed By: #### C BC, ADIFF, ANEU, BMP, GFR ####[address] [address] Platelet mean volume (Bld) [Entitic vol] 10.0 fL Normal 6.4-10.5 [facility] ([place] Comment on above: Performed By: #### C BC, ADIFF, ANEU, BMP, GFR ####[place] [address] RBC 4.23 10 6/mcL Low 4.50-6.00 [facility] ([place] Comment on above: Performed By: #### C BC, ADIFF, ANEU, BMP, GFR ####[place] [address] WBC 9.70 10 3/mcL Normal 4.50-10.80 [facility] ([place] Comment on above: Performed By: #### C BC, ADIFF, ANEU, BMP, GFR ####[address] [address] LABORATORYOrdered By: SYSTEM SYSTEM on 02-07-2021 Basophils (Bld) [#/Vol] 0.00 103/mcL Invalid Interpretation Code 0.00 - 0.27 10^3/mcL AH Remisol SS Basophils/100 WBC (Bld) 0.1 % Invalid Interpretation Code 0.0 - 2.5 % AH Remisol SS Calcium [Mass/Vol] 9.8 mg/dL Invalid Interpretation Code 8.7 - 10.4 mg/dL AH ADM SS Chloride [Moles/Vol] 102 mmol/L Invalid Interpretation Code 98 - 110 mEq/L AH ADM SS CO2 [Moles/Vol] 28 mmol/L Invalid Interpretation Code 22 - 32 mEq/L AH ADM SS Creatinine [Mass/Vol] 0.77 mg/dL Invalid Interpretation Code 0.60 - 1.40 mg/dL AH ADM SS Electrolyte Balance 10.0 mEq/L Invalid Interpretation Code 4.0 - 15.0 mEq/L AH ADM SS Eosinophils (Bld) [#/Vol] 0.00 103/mcL Invalid Interpretation Code 0.00 - 0.65 10^3/mcL AH Remisol SS Eosinophils/100 WBC (Bld) 0.0 % Invalid Interpretation Code 0.0 - 6.0 % AH Remisol SS Erythrocyte distribution width (RBC) [Ratio] 13.7 % Invalid Interpretation Code 11.5 - 15.5 % AH Remisol SS GFR/1.73 sq M.predicted among blacks MDRD (S/P/Bld) [Vol rate/Area] ml/min/1.73sqm Invalid Interpretation Code Chemistry S GFR/1.73 sq M.predicted among non-blacks MDRD (S/P/Bld) [Vol rate/Area] ml/min/1.73sqm Invalid Interpretation Code Chemistry S Glucose [Mass/Vol] 210 mg/dL Invalid Interpretation Code 70 - 110 mg/dL ADM SS Hematocrit (Bld) [Volume fraction] 39.7 % Invalid Interpretation Code 40.0 - 52.0 % Remisol SS Hemoglobin (Bld) [Mass/Vol] 13.3 G/dL Invalid Interpretation Code 13.0 - 17.5 G/dL Remisol SS Lymphocytes (Bld) [#/Vol] 0.80 103/mcL Invalid Interpretation Code 0.90 - 4.32 10^3/mcL AH Remisol SS Lymphocytes/100 WBC (Bld) 8.0 % Invalid Interpretation Code 20.0 - 40.0 % AH Remisol SS MCH (RBC) [Entitic mass] 31.4 pg Invalid Interpretation Code 27.0 - 33.0 pg AH Remisol SS MCHC (RBC) [Mass/Vol] 33.5 G/dL Invalid Interpretation Code 32.0 - 36.0 G/dL AH Remisol SS MCV (RBC) [Entitic vol] 93.8 fL Invalid Interpretation Code 81.0 - 100.0 fL AH Remisol SS Monocytes (Bld) [#/Vol] 0.60 103/mcL Invalid Interpretation Code 0.09 - 1.40 10^3/mcL AH Remisol SS Monocytes/100 WBC (Bld) 6.7 % Invalid Interpretation Code 2.0 - 13.0 % Remisol SS Neutrophils (Bld) [#/Vol] 8.30 103/mcL Invalid Interpretation Code 2.25 - 8.10 10^3/mcL AH Remisol SS Neutrophils/100 WBC (Bld) 85.2 % Invalid Interpretation Code 50.0 - 75.0 % AH Remisol SS Platelet mean volume (Bld) [Entitic vol] 10.0 fL Invalid Interpretation Code 6.4 - 10.5 fL AH Remisol SS Platelets (Bld) [#/Vol] 161 103/mcL Invalid Interpretation Code 150 - 450 10^3/mcL AH Remisol SS Potassium [Moles/Vol] 4.4 mmol/L Invalid Interpretation Code 3.5 - 5.0 mEq/L AH ADM SS Comment on above: Result Comment: Spec imen slightly hemolyzed. RBC (Bld) [#/Vol] 4.23 106/mcL Invalid Interpretation Code 4.50 - 6.00 10^6/mcL AH Remisol SS Sodium [Moles/Vol] 140 mmol/L Invalid Interpretation Code 136 - 145 mEq/L AH ADM SS Urea nitrogen [Mass/Vol] 25.0 mg/dL Invalid Interpretation Code 8.0 - 22.0 mg/dL AH ADM SS Urea nitrogen/Creatinine [Mass ratio] 32.5 ratio Invalid Interpretation Code 10.0 - 22.0 ratio AH ADM SS WBC (Bld) [#/Vol] 9.70 103/mcL Invalid Interpretation Code 4.50 - 10.80 10^3/mcL AH Remisol SS .Auto Diffon 02-06-2021 Basophil, Absolute 0.00 10 3/mcL Normal 0.00-0.27 [facility] ([place]) Comment on above: Performed By: #### A MOIRA CK #### [address] [address] Basophils/100 WBC (Bld) 0.1 % Normal 0.0-2.5 [facility] ([place]) Comment on above: Performed By: #### A HUSAM PIZARRO #### [address] [address] Eosinophil, Absolute 0.00 10 3/mcL Normal 0.00-0.65 [facility] ([place] Comment on above: Performed By: #### A HUSAM PIZARRO #### [address] [address] Eosinophils/100 WBC (Bld) 0.0 % Normal 0.0-6.0 [facility] ([place]) Comment on above: Performed By: #### A MOIRA, CK #### [address] [address] Lymphocyte, Absolute 0.50 10 3/mcL Low 0.90-4.32 [facility] ([place]) Comment on above: Performed By: #### A MOIRA, CK #### [address] [address] Lymphocytes/100 WBC (Bld) 5.0 % Low 20.0-40.0 [facility] ([place]) Comment on above: Performed By: #### A MOIRA, CK #### [address] [address] Monocyte, Absolute 0.50 10 3/mcL Normal 0.09-1.40 [facility] ([place]) Comment on above: Performed By: #### A MOIRA, CK #### [address] [address] Monocytes/100 WBC (Bld) 4.8 % Normal 2.0-13.0 [facility] ([place] Comment on above: Performed By: #### A MOIRA, CK #### [address] [address] Neutrophils/100 WBC (Bld) 90.1 % High 50.0-75.0 [facility] ([place] Comment on above: Performed By: #### A MOIRA CK #### [address] [address] .GFRon 02-06-2021 GFR >60 Normal [facility] ([place]) Comment on above: Result Comment: GFR Population mean for , Non- Americans Ages 20-29 = 116 mL/min/1.73 sq.m. Ages 30-39 = 107 mL/min/1.73 sq.m. Ages 40-49 = 99 mL/min/1.73 sq.m. Ages 50-59 = 93 mL/min/1.73 sq.m. Ages 60-69 = 85 mL/min/1.73 sq.m. Ages 70+ = 75 mL/min/1.73 sq.m. Chronic Kidney Disease: Less than 60 mL/min/1.73 square meters End Stage Renal Disease: Less than 15 mL/min/1.73 square meters Performed By: #### C BC, ADIFF, ANEU, CMP, GFR ####[address] [address] GFR Non- >60 Normal [facility] ([place] Comment on above: Result Comment: GFR Population mean for , Non- Americans Ages 20-29 = 116 mL/min/1.73 sq.m. Ages 30-39 = 107 mL/min/1.73 sq.m. Ages 40-49 = 99 mL/min/1.73 sq.m. Ages 50-59 = 93 mL/min/1.73 sq.m. Ages 60-69 = 85 mL/min/1.73 sq.m. Ages 70+ = 75 mL/min/1.73 sq.m. Chronic Kidney Disease: Less than 60 mL/min/1.73 square meters End Stage Renal Disease: Less than 15 mL/min/1.73 square meters Performed By: #### C BC, ADIFF, ANEU, CMP, GFR ####[address] [address] .NEUABSon 02-06-2021 Neutrophil, Absolute 9.20 10 3/mcL High 2.25-8.10 [facility] ([place] Comment on above: Performed By: #### C BC, ADIFF, ANEU, CMP, GFR ####[address] [address] CBCon 02-06-2021 Erythrocyte distribution width (RBC) [Ratio] 13.8 % Normal 11.5-15.5 [facility] ([place] Comment on above: Performed By: #### A MOIRA CK #### [address] [address] Hematocrit (Bld) [Volume fraction] 41.7 % Normal 40.0-52.0 [facility] ([place] Comment on above: Performed By: #### Brandon PIZARRO CK #### [address] [address] Hgb 14.0 G/dL Normal 13.0-17.5 [facility] ([place] Comment on above: Performed By: #### A MOIRA, CK #### [place] [id number] MCH (RBC) [Entitic mass] 31.6 pg Normal 27.0-33.0 [facility] ([place] Comment on above: Performed By: #### A MOIRA, CK #### [place] [address] MCHC 33.7 G/dL Normal 32.0-36.0 [facility] ([place] Comment on above: Performed By: #### A MOIRA, CK #### [place] [address] MCV (RBC) [Entitic vol] 93.9 fL Normal 81.0-100.0 [facility] ([place] Comment on above: Performed By: #### A MOIRA, CK #### [place] [address] Platelet 155 10 3/mcL Normal 150-450 [facility] ([place] Comment on above: Performed By: #### A MOIRA, CK #### [place] [address] Platelet mean volume (Bld) [Entitic vol] 10.2 fL Normal 6.4-10.5 [facility] ([place] Comment on above: Performed By: #### A MOIRA, CK #### [place] [address] RBC 4.45 10 6/mcL Low 4.50-6.00 [facility] ([place] Comment on above: Performed By: #### A MOIRA, CK #### [place] [address] WBC 10.20 10 3/mcL Normal 4.50-10.80 [facility] ([place] Comment on above: Performed By: #### A MOIRA, CK #### [place] [address] CMPon 02-06-2021 Albumin Level 3.8 G/dL Normal 3.2-4.8 [facility] ([place] Comment on above: Performed By: #### C BC, ADIFF, ANEU, CMP, GFR ####[place] [address] Albumin/Globulin [Mass ratio] 1.4 {ratio} Normal 0.9-1.6 [facility] ([place] Comment on above: Performed By: #### C BC, ADIFF, ANEU, CMP, GFR ####[place] [address] ALP [Catalytic activity/Vol] 65 U/L Normal 38-126 [facility] ([place] Comment on above: Performed By: #### C BC, ADIFF, ANEU, CMP, GFR ####[place] [address] ALT [Catalytic activity/Vol] 19 U/L Normal 12-55 [facility] ([place] Comment on above: Performed By: #### C BC, ADIFF, ANEU, CMP, GFR ####[place] [address] AST [Catalytic activity/Vol] 37 U/L High 8-34 [facility] ([place] Comment on above: Performed By: #### C BC, ADIFF, ANEU, CMP, GFR ####[place] [address] Bili Total 0.80 mg/dL Normal 0.20-1.20 [facility] ([place] Comment on above: Result Comment: Use of this assay is not recommended for patients undergoing treatment with eltrombopag due to the potential for falsely elevated results. Performed By: #### C BC, ADIFF, ANEU, CMP, GFR ####[place] [address] BUN/Creatinine Ratio 26.2 ratio High 10.0-22.0 [facility] ([place] Comment on above: Performed By: #### C BC, ADIFF, ANEU, CMP, GFR ####[place] [address] Calcium [Mass/Vol] 9.6 mg/dL Normal 8.7-10.4 [facility] ([place]) Comment on above: Result Comment: No te - New Reference Range in effect 19 Performed By: #### C BC, ADIFF, ANEU, CMP, GFR ####[address] [address] Chloride [Moles/Vol] 103 mmol/L Normal 98-110 [facility] ([place] Comment on above: Performed By: #### C BC, ADIFF, ANEU, CMP, GFR ####[address] [address] CO2 [Moles/Vol] 29 mmol/L Normal 22-32 [facility] ([place] Comment on above: Performed By: #### C BC, ADIFF, ANEU, CMP, GFR ####[address] [address] Creatinine [Mass/Vol] 0.84 mg/dL Normal 0.60-1.40 [facility] ([place]) Comment on above: Performed By: #### C BC, ADIFF, ANEU, CMP, GFR ####[address] [address] Electrolyte Balance 9.0 mEq/L Normal 4.0-15.0 [facility] ([place]) Comment on above: Performed By: #### C BC, ADIFF, ANEU, CMP, GFR ####[address] [address] Globulin 2.8 G/dL Normal 1.5-3.8 [facility] ([place] Comment on above: Performed By: #### C BC, ADIFF, ANEU, CMP, GFR ####[address] [address] Glucose [Mass/Vol] 193 mg/dL High 70-110 [facility] ([place] Comment on above: Performed By: #### C BC, ADIFF, ANEU, CMP, GFR ####[address] [address] Potassium [Moles/Vol] 4.5 mmol/L Normal 3.5-5.0 [facility] ([place]) Comment on above: Performed By: #### C BC, ADIFF, ANEU, CMP, GFR ####[place] [address] [address] [place] [address] Sodium [Moles/Vol] 141 mmol/L Normal 136-145 [facility] ([place] Comment on above: Performed By: #### C BC, ADIFF, ANEU, CMP, GFR ####[address] [address] Total Protein 6.6 G/dL Normal 5.7-8.2 [facility] ([place] Comment on above: Result Comment: No te - New Reference Range in effect 19 Performed By: #### C BC, ADIFF, ANEU, CMP, GFR ####[place] [address] [address] [place] [address] Urea nitrogen [Mass/Vol] 22.0 mg/dL Normal 8.0-22.0 [facility] ([place] Comment on above: Performed By: #### C BC, ADIFF, ANEU, CMP, GFR ####[address] [address] LABORATORYOrdered By: SYSTEM SYSTEM on 02-06-2021 Albumin BCP dye [Mass/Vol] 3.8 G/dL Invalid Interpretation Code 3.2 - 4.8 G/dL ADM SS Albumin/Globulin [Mass ratio] 1.4 {ratio} Invalid Interpretation Code 0.9 - 1.6 ratio AH ADM SS ALP [Catalytic activity/Vol] 65 U/L Invalid Interpretation Code 38 - 126 U/L ADM SS ALT No additional P-5'-P [Catalytic activity/Vol] 19 U/L Invalid Interpretation Code 12 - 55 U/L AH ADM SS AST [Catalytic activity/Vol] 37 U/L Invalid Interpretation Code 8 - 34 U/L AH ADM SS Basophils (Bld) [#/Vol] 0.00 103/mcL Invalid Interpretation Code 0.00 - 0.27 10^3/mcL AH Remisol SS Basophils/100 WBC (Bld) 0.1 % Invalid Interpretation Code 0.0 - 2.5 % AH Remisol SS Bilirubin [Mass/Vol] 0.80 mg/dL Invalid Interpretation Code 0.20 - 1.20 mg/dL AH ADM SS Calcium [Mass/Vol] 9.6 mg/dL Invalid Interpretation Code 8.7 - 10.4 mg/dL AH ADM SS Chloride [Moles/Vol] 103 mmol/L Invalid Interpretation Code 98 - 110 mEq/L AH ADM SS CO2 [Moles/Vol] 29 mmol/L Invalid Interpretation Code 22 - 32 mEq/L AH ADM SS Creatinine [Mass/Vol] 0.84 mg/dL Invalid Interpretation Code 0.60 - 1.40 mg/dL AH ADM SS Electrolyte Balance 9.0 mEq/L Invalid Interpretation Code 4.0 - 15.0 mEq/L AH ADM SS Eosinophils (Bld) [#/Vol] 0.00 103/mcL Invalid Interpretation Code 0.00 - 0.65 10^3/mcL AH Remisol SS Eosinophils/100 WBC (Bld) 0.0 % Invalid Interpretation Code 0.0 - 6.0 % AH Remisol SS Erythrocyte distribution width (RBC) [Ratio] 13.8 % Invalid Interpretation Code 11.5 - 15.5 % AH Remisol SS GFR/1.73 sq M.predicted among blacks MDRD (S/P/Bld) [Vol rate/Area] ml/min/1.73sqm Invalid Interpretation Code Chemistry S GFR/1.73 sq M.predicted among non-blacks MDRD (S/P/Bld) [Vol rate/Area] ml/min/1.73sqm Invalid Interpretation Code Chemistry S Globulin 2.8 G/dL Invalid Interpretation Code 1.5 - 3.8 G/dL ADM SS Glucose [Mass/Vol] 193 mg/dL Invalid Interpretation Code 70 - 110 mg/dL AH ADM SS Hematocrit (Bld) [Volume fraction] 41.7 % Invalid Interpretation Code 40.0 - 52.0 % AH Remisol SS Hemoglobin (Bld) [Mass/Vol] 14.0 G/dL Invalid Interpretation Code 13.0 - 17.5 G/dL AH Remisol SS Lymphocytes (Bld) [#/Vol] 0.50 103/mcL Invalid Interpretation Code 0.90 - 4.32 10^3/mcL AH Remisol SS Lymphocytes/100 WBC (Bld) 5.0 % Invalid Interpretation Code 20.0 - 40.0 % AH Remisol SS MCH (RBC) [Entitic mass] 31.6 pg Invalid Interpretation Code 27.0 - 33.0 pg AH Remisol SS MCHC (RBC) [Mass/Vol] 33.7 G/dL Invalid Interpretation Code 32.0 - 36.0 G/dL AH Remisol SS MCV (RBC) [Entitic vol] 93.9 fL Invalid Interpretation Code 81.0 - 100.0 fL AH Remisol SS Monocytes (Bld) [#/Vol] 0.50 103/mcL Invalid Interpretation Code 0.09 - 1.40 10^3/mcL AH Remisol SS Monocytes/100 WBC (Bld) 4.8 % Invalid Interpretation Code 2.0 - 13.0 % AH Remisol SS Neutrophils (Bld) [#/Vol] 9.20 103/mcL Invalid Interpretation Code 2.25 - 8.10 10^3/mcL AH Remisol SS Neutrophils/100 WBC (Bld) 90.1 % Invalid Interpretation Code 50.0 - 75.0 % AH Remisol SS Platelet mean volume (Bld) [Entitic vol] 10.2 fL Invalid Interpretation Code 6.4 - 10.5 fL AH Remisol SS Platelets (Bld) [#/Vol] 155 103/mcL Invalid Interpretation Code 150 - 450 10^3/mcL AH Remisol SS Potassium [Moles/Vol] 4.5 mmol/L Invalid Interpretation Code 3.5 - 5.0 mEq/L AH ADM SS Protein [Mass/Vol] 6.6 G/dL Invalid Interpretation Code 5.7 - 8.2 G/dL AH ADM SS RBC (Bld) [#/Vol] 4.45 106/mcL Invalid Interpretation Code 4.50 - 6.00 10^6/mcL AH Remisol SS Sodium [Moles/Vol] 141 mmol/L Invalid Interpretation Code 136 - 145 mEq/L AH ADM SS Urea nitrogen [Mass/Vol] 22.0 mg/dL Invalid Interpretation Code 8.0 - 22.0 mg/dL AH ADM SS Urea nitrogen/Creatinine [Mass ratio] 26.2 ratio Invalid Interpretation Code 10.0 - 22.0 ratio AH ADM SS WBC (Bld) [#/Vol] 10.20 103/mcL Invalid Interpretation Code 4.50 - 10.80 10^3/mcL AH Remisol SS .Auto Diffon 02-05-2021 Basophil, Absolute 0.00 10 3/mcL Normal 0.00-0.27 [facility] ([place]) Comment on above: Performed By: #### A LC, CK #### [address] [address] Basophils/100 WBC (Bld) 0.3 % Normal 0.0-2.5 [facility] ([place]) Comment on above: Performed By: #### A MOIRA, CK #### [address] [address] Eosinophil, Absolute 0.00 10 3/mcL Normal 0.00-0.65 [facility] ([place]) Comment on above: Performed By: #### A MOIRA, CK #### [address] [address] Eosinophils/100 WBC (Bld) 0.1 % Normal 0.0-6.0 [facility] ([place]) Comment on above: Performed By: #### A MOIRA, CK #### [address] [address] Lymphocyte, Absolute 1.20 10 3/mcL Normal 0.90-4.32 [facility] ([place]) Comment on above: Performed By: #### A MOIRA, CK #### [address] [address] Lymphocytes/100 WBC (Bld) 13.4 % Low 20.0-40.0 Formerly [facility] ([place]) Comment on above: Performed By: #### A MOIRA, CK #### [address] [address] Monocyte, Absolute 1.10 10 3/mcL Normal 0.09-1.40 [facility] ([place]) Comment on above: Performed By: #### A MOIRA, CK #### [address] [address] Monocytes/100 WBC (Bld) 11.9 % Normal 2.0-13.0 Formerly [facility] ([place]) Comment on above: Performed By: #### A MOIRA, CK #### [address] [address] Neutrophils/100 WBC (Bld) 74.3 % Normal 50.0-75.0 Formerly [facility] ([place]) Comment on above: Performed By: #### A MOIRA, CK #### [address] [address] .GFRon 02-05-2021 GFR >60 Normal [facility] ([place]) Comment on above: Result Comment: GFR Population mean for , Non- Americans Ages 20-29 = 116 mL/min/1.73 sq.m. Ages 30-39 = 107 mL/min/1.73 sq.m. Ages 40-49 = 99 mL/min/1.73 sq.m. Ages 50-59 = 93 mL/min/1.73 sq.m. Ages 60-69 = 85 mL/min/1.73 sq.m. Ages 70+ = 75 mL/min/1.73 sq.m. Chronic Kidney Disease: Less than 60 mL/min/1.73 square meters End Stage Renal Disease: Less than 15 mL/min/1.73 square meters Performed By: #### A MOIRA, CK #### [place] [address] GFR Non- >60 Normal [facility] ([place]) Comment on above: Result Comment: GFR Population mean for , Non- Americans Ages 20-29 = 116 mL/min/1.73 sq.m. Ages 30-39 = 107 mL/min/1.73 sq.m. Ages 40-49 = 99 mL/min/1.73 sq.m. Ages 50-59 = 93 mL/min/1.73 sq.m. Ages 60-69 = 85 mL/min/1.73 sq.m. Ages 70+ = 75 mL/min/1.73 sq.m. Chronic Kidney Disease: Less than 60 mL/min/1.73 square meters End Stage Renal Disease: Less than 15 mL/min/1.73 square meters Performed By: #### A MOIRA, CK #### [address] [address] .NEUABSon 02-05-2021 Neutrophil, Absolute 6.90 10 3/mcL Normal 2.25-8.10 A [facility] ([place]) Comment on above: Performed By: #### A MOIRA, CK #### [address] [address] BMPon 02-05-2021 BUN/Creatinine Ratio 24.4 ratio High 10.0-22.0 [facility] ([place]) Comment on above: Performed By: #### A MOIRA, CK #### [address] [address] Calcium [Mass/Vol] 9.7 mg/dL Normal 8.7-10.4 [facility] ([place]) Comment on above: Result Comment: No te - New Reference Range in effect 19 Performed By: #### A MOIRA, CK #### [address] [address] Chloride [Moles/Vol] 104 mmol/L Normal 98-110 [facility] ([place]) Comment on above: Performed By: #### A MOIRA, CK #### [address] [address] CO2 [Moles/Vol] 27 mmol/L Normal 22-32 [facility] ([place]) Comment on above: Performed By: #### A MOIRA, CK #### [address] [address] Creatinine [Mass/Vol] 0.78 mg/dL Normal 0.60-1.40 [facility] ([place]) Comment on above: Performed By: #### A MOIRA, CK #### [address] [address] Electrolyte Balance 9.0 mEq/L Normal 4.0-15.0 [facility] ([place]) Comment on above: Performed By: #### A MOIRA, CK #### [address] [address] Glucose [Mass/Vol] 167 mg/dL High 70-110 [facility] ([place]) Comment on above: Performed By: #### A MOIRA, CK #### [address] [address] Potassium [Moles/Vol] 4.3 mmol/L Normal 3.5-5.0 [facility] ([place]) Comment on above: Performed By: #### A MOIRA, CK #### [address] [address] Sodium [Moles/Vol] 140 mmol/L Normal 136-145 [facility] ([place] Comment on above: Performed By: #### A MOIRA, CK #### [place] [address] Urea nitrogen [Mass/Vol] 19.0 mg/dL Normal 8.0-22.0 [facility] ([place]) Comment on above: Performed By: #### A MOIRA, CK #### [place] [id number] CBCon 02-05-2021 Erythrocyte distribution width (RBC) [Ratio] 13.7 % Normal 11.5-15.5 [facility] ([place] Comment on above: Performed By: #### A MOIRA, CK #### [place] [address] Hematocrit (Bld) [Volume fraction] 40.7 % Normal 40.0-52.0 [facility] ([place] Comment on above: Performed By: #### A MOIRA, CK #### [place] [address] Hgb 13.9 G/dL Normal 13.0-17.5 [facility] ([place] Comment on above: Performed By: #### A MOIRA, CK #### [place] [id number] MCH (RBC) [Entitic mass] 32.3 pg Normal 27.0-33.0 [facility] ([place] Comment on above: Performed By: #### A MOIRA, CK #### [place] [address] MCHC 34.1 G/dL Normal 32.0-36.0 [facility] ([place] Comment on above: Performed By: #### A MOIRA, CK #### [place] [id number] MCV (RBC) [Entitic vol] 94.7 fL Normal 81.0-100.0 [facility] ([place]) Comment on above: Performed By: #### A MOIRA, CK #### [place] [id number] Platelet 138 10 3/mcL Low 150-450 [facility] ([place]) Comment on above: Performed By: #### A MOIRA, CK #### [address] [address] Platelet mean volume (Bld) [Entitic vol] 9.7 fL Normal 6.4-10.5 [facility] ([place]) Comment on above: Performed By: #### A MOIRA, CK #### [address] [address] RBC 4.30 10 6/mcL Low 4.50-6.00 [facility] ([place] Comment on above: Performed By: #### A MOIRA, CK #### [address] [address] WBC 9.20 10 3/mcL Normal 4.50-10.80 [facility] ([place] Comment on above: Performed By: #### A MOIRA, CK #### [address] [address] XR FLUORO > 2 HRS TECH TIMEo n 02-05-2021 XR FLUORO > 2 HRS TECH TIME ORIGINAL EXAMINATION: SPOT FLUOROSCOPIC IMAGES 02/05/2021 12:59 pm TECHNIQUE: Fluoroscopy was provided by the radiology department for procedure. Radiologist was not present during examination. FLUOROSCOPY DOSE AND TYPE OR TIME AND EXPOSURES: Fluoro time: C-arm, 5 seconds. O-arm, 11.9 seconds Radiation dose: C-arm, 0.97 mGy. 0 arm, 61.82 mGy Images: C-arm 2. O arm, 196 COMPARISON: MRI of the cervical spine on 02/03/2021 HISTORY: ORDERING SYSTEM PROVIDED HISTORY: Reason for Exam: CERV STENOSIS Intraprocedural imaging. FINDINGS: 198 spot images of the cervical spine were obtained. Guidance for cervical spine surgery is provided IMPRESSION: Intraprocedural fluoroscopic spot images as above. See separate procedure report for more information. Interpreted by: Luis Manuel Robles MD Preliminary Report By: Luis Manuel Robles MD Electronically signed By Luis Manuel Robles MD Dictated Date: 02/05/2021 2:00:35 PM Prelim Date: 02/05/2021 2:03:01 PM Sign Date: 02/05/2021 2:03:01 PM Ordering Provider: BJ [place] [facility] [place] MRI SPINE CERVICAL W/O CONTR Claire 02-04-2021 MRI SPINE CERVICAL W/O CONTRAST ORIGINAL EXAMINATION: MRI OF THE CERVICAL SPINE WITHOUT QIWCBDON90/23/2021 TECHNIQUE: Sagittal T1, T2, STIR, axial T2-weighted images of the cervical spine were obtained without contrast. COMPARISON: No comparison available at time of dictation. HISTORY: ORDERING SYSTEM PROVIDED HISTORY: Reason for Exam: fall, arm pain, arm numbness FINDINGS: Vertebral body heights are maintained. Vertebral body marrow signal is within normal limits. There is mild straightening of the upper cervical spine present. A short segment of patchy cord signal hyperintensity on T2 and STIR is present at the level of C3-C4 in the right and left hemicord. No additional areas of myelomalacia identified. Visualized inferior brain and paraspinal soft tissues are within normal limits for technique. C2-C3: Notable posterior spur disc complex versus ossification of the posterior longitudinal ligament. This results in mild canal stenosis. No significant neural foraminal narrowing identified. C3-C4: Posterior spur disc complex versus ossification of the posterior longitudinal ligament. Mild right greater than left uncovertebral joint hypertrophy. Moderate canal stenosis and mild right neural foraminal narrowing. C4-C5: Mild diffuse disc bulge with right greater than left facet and uncovertebral joint hypertrophy. Minimal canal stenosis at this level with mild right neural foraminal narrowing. C5-C6: Posterior spur disc complex with mild facet and uncovertebral joint hypertrophy bilaterally. This results in qruw-yq-cyyrcluj canal stenosis and mild bilateral neural foraminal narrowing. C6-C7: The disc is within normal limits. No canal stenosis, or neuroforaminal narrowing. C7-T1: The disc is within normal limits. No canal stenosis, or neuroforaminal narrowing. IMPRESSION: 1. Prominent posterior spur disc complex sees versus ossification the posterior longitudinal ligament of the upper cervical spine which results and mild canal stenosis C2-C3, moderate canal stenosis at C3-C4 and additional levels of canal stenosis as above. 2. 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 3. Several levels of neural foraminal narrowing as above. Interpreted by: Garrett Roper Preliminary Report By: Garrett Roper Electronically signed By Garrett Roper Dictated Date: 02/03/2021 10:33:13 PM Prelim Date: 02/03/2021 10:40:57 PM Sign Date: 02/03/2021 10:40:57 PM Ordering Provider: HARPREET RIVAS [facility] ([place]) Trevin 02-03-2021 Ethanol Level 34.0 mg/dL Normal [facility] ([place]) Comment on above: Performed By: #### A LC, CK #### [address] [address] CKon 02-03-2021 CK [Catalytic activity/Vol] 328 U/L High 7-185 [facility] ([place]) Comment on above: Performed By: #### A LC, CK #### [address] [address] LABORATORYOrdered By: SYSTEM SYSTEM on 02-03-2021 CK [Catalytic activity/Vol] 328 U/L Invalid Interpretation Code 7 - 185 U/L AH ADM SS Ethanol [Mass/Vol] 34.0 mg/dL Invalid Interpretation Code AH ADM SS XR ELBOW MINIMUM 3 VIEWS LEF Ton 02-03-2021 XR ELBOW MINIMUM 3 VIEWS LEFT ORIGINAL EXAMINATION: THREE XRAY VIEWS OF THE LEFT ELBOW 02/03/2021 5:23 pm COMPARISON: None. HISTORY: ORDERING SYSTEM PROVIDED HISTORY: Reason for Exam: Pain Trauma FINDINGS: No acute fracture or dislocation. No large joint effusion. Well corticated ossicle adjacent to the medial and lateral epicondyles are likely normal variants or from remote injury. No significant soft tissue swelling. IMPRESSION: No acute fracture or dislocation. I have personally reviewed the images of this examination and agree with the resident's findings and interpretation. Interpreted by: Elijah Ann DO Preliminary Report By: Abelino Church Electronically signed By Elijah Ann DO Dictated Date: 02/03/2021 5:37:44 PM Prelim Date: 02/03/2021 5:41:34 PM Sign Date: 02/03/2021 6:02:36 PM Ordering Provider: NED VALLECILLO Normal [facility] [place] XR ELBOW MINIMUM 3 VIEWS RIG HTon 02-03-2021 XR ELBOW MINIMUM 3 VIEWS RIGHT ORIGINAL EXAMINATION: THREE XRAY VIEWS OF THE RIGHT ELBOW 02/03/2021 5:23 pm COMPARISON: None. HISTORY: ORDERING SYSTEM PROVIDED HISTORY: Reason for Exam: Pain Trauma FINDINGS: No acute fracture or dislocation. Well corticated ossicle adjacent to the medial and lateral epicondyle are likely normal variants or from remote injury. Olecranon enthesophyte is noted. No large joint effusion or significant soft tissue swelling. IMPRESSION: No acute fracture or dislocation. I have personally reviewed the images of this examination and agree with the resident's findings and interpretation. Interpreted by: Elijah Ann DO Preliminary Report By: Abelino Church Electronically signed By Elijah Ann DO Dictated Date: 02/03/2021 5:41:44 PM Prelim Date: 02/03/2021 5:43:21 PM Sign Date: 02/03/2021 6:03:19 PM Ordering Provider: NED VALLECILLO [facility] [place] XR FINGER THUMB 3 VIEWS LEFT on 02-03-2021 XR FINGER THUMB 3 VIEWS LEFT ORIGINAL EXAMINATION: THREE XRAY VIEWS OF THE LEFT THUMB 02/03/2021 7:03 pm COMPARISON: 02/03/2021 HISTORY: ORDERING SYSTEM PROVIDED HISTORY: Reason for Exam: Postreduction film FINDINGS: There has been interval successful reduction of the previously described dislocation of the distal phalanx. No fracture is seen. IMPRESSION: Successful reduction without fracture. Interpreted by: Elijah Ann DO Preliminary Report By: Elijah Ann DO Electronically signed By Elijah Ann DO Dictated Date: 02/03/2021 7:15:17 PM Prelim Date: 02/03/2021 7:16:59 PM Sign Date: 02/03/2021 7:16:59 PM Ordering Provider: NED VALLECILLO [facility] [place] XR HAND MINIMUM 3 VIEWS LEFT on 02-03-2021 XR HAND MINIMUM 3 VIEWS LEFT ORIGINAL EXAMINATION: THREE XRAY VIEWS OF THE LEFT HAND 02/03/2021 5:26 pm COMPARISON: None HISTORY: ORDERING SYSTEM PROVIDED HISTORY: Reason for Exam: Pain Trauma FINDINGS: There is posterolateral dislocation of the distal phalanx of the thumb without an associated fracture. Other digits are intact. IMPRESSION: Posterolateral dislocation of the distal phalanx of the thumb. Interpreted by: Elijah Ann DO Preliminary Report By: Elijah Ann DO Electronically signed By Elijah Ann DO Dictated Date: 02/03/2021 5:44:21 PM Prelim Date: 02/03/2021 5:46:37 PM Sign Date: 02/03/2021 5:46:37 PM Ordering Provider: NED VALLECILLO [facility] [place] XR HAND MINIMUM 3 VIEWS LAMAR Waggoner 02-03-2021 XR HAND MINIMUM 3 VIEWS RIGHT ORIGINAL EXAMINATION: THREE XRAY VIEWS OF THE RIGHT HAND; THREE XRAY VIEWS OF THE RIGHT WRIST 02/03/2021 5:21 pm COMPARISON: None. HISTORY: ORDERING SYSTEM PROVIDED HISTORY: Reason for Exam: Pain Trauma FINDINGS: Final degenerative change of the 1st metacarpophalangeal joint. No acute fracture or dislocation. Carpal rows are intact. No radiopaque foreign body. IMPRESSION: No acute osseous abnormality Interpreted by: Garrett Roper Preliminary Report By: Garrett Roper Electronically signed By Garrett Roper Dictated Date: 02/03/2021 5:59:19 PM Prelim Date: 02/03/2021 6:01:09 PM Sign Date: 02/03/2021 6:01:09 PM Ordering Provider: NED VALLECILLO [facility] [place] XR SHOULDER MINIMUM 2 VIEWS LEFTon 02-03-2021 XR SHOULDER MINIMUM 2 VIEWS LEFT ORIGINAL EXAMINATION: TWO XRAY VIEWS OF THE LEFT SHOULDER 02/03/2021 5:22 pm COMPARISON: None. HISTORY: ORDERING SYSTEM PROVIDED HISTORY: Reason for Exam: Pain Trauma FINDINGS: No acute fracture or dislocation. The acromioclavicular and coracoclavicular distances are maintained. Moderate degenerative changes are noted at the left AC joint. The included thoracic structures appear intact. IMPRESSION: No acute fracture or dislocation. I have personally reviewed the images of this examination and agree with the resident's findings and interpretation. Interpreted by: Elijah Ann DO Preliminary Report By: Abelino Chucrh Electronically signed By Elijah Ann DO Dictated Date: 02/03/2021 5:35:19 PM Prelim Date: 02/03/2021 5:37:31 PM Sign Date: 02/03/2021 6:01:51 PM Ordering Provider: NED VALLECILLO [facility] [place] XR SHOULDER MINIMUM 2 VIEWS RIGHTon 02-03-2021 XR SHOULDER MINIMUM 2 VIEWS RIGHT ORIGINAL EXAMINATION: TWO XRAY VIEWS OF THE RIGHT SHOULDER 02/03/2021 5:20 pm COMPARISON: None. HISTORY: ORDERING SYSTEM PROVIDED HISTORY: Reason for Exam: Pain FINDINGS: No acute fracture or dislocation. The acromioclavicular and coracoclavicular distances are maintained. The humeral head appears appropriately seated within the glenoid. Moderate degenerative changes are noted at the right acromioclavicular joint. The included thoracic structures are intact. IMPRESSION: No acute fracture or dislocation. Moderate AC joint degenerative changes. If impingement syndrome is suspected, further evaluation with MRI could be considered. I have personally reviewed the images of this examination and agree with the resident's findings and interpretation. Interpreted by: Elijah Ann DO Preliminary Report By: Abelino Church Electronically signed By Elijah Ann DO Dictated Date: 02/03/2021 5:31:55 PM Prelim Date: 02/03/2021 5:35:10 PM Sign Date: 02/03/2021 6:00:26 PM Ordering Provider: NED VALLECILLO [facility] [place] XR WRIST MINIMUM 3 VIEWS [facility] 02-03-2021 XR WRIST MINIMUM 3 VIEWS LEFT ORIGINAL EXAMINATION: THREE XRAY VIEWS OF THE LEFT WRIST 02/03/2021 5:24 pm COMPARISON: None. HISTORY: ORDERING SYSTEM PROVIDED HISTORY: Reason for Exam: Pain Trauma FINDINGS: No acute fracture. Carpal arcs are maintained. There is posterior subluxation of the distal phalanx of the 1st digit. No radiopaque foreign body. No significant soft tissue swelling. IMPRESSION: Posterior subluxation of the 1st distal phalanx. I have personally reviewed the images of this examination and agree with the resident's findings and interpretation. Interpreted by: Elijah Ann DO Preliminary Report By: Abelino Church Electronically signed By Elijah Ann DO Dictated Date: 02/03/2021 5:54:00 PM Prelim Date: 02/03/2021 5:58:31 PM Sign Date: 02/03/2021 6:11:10 PM Ordering Provider: NED VALLECILLO [facility] [place] XR WRIST MINIMUM [address] [facility] [place]on 02-03-2021 XR WRIST MINIMUM 3 VIEWS RIGHT ORIGINAL EXAMINATION: THREE XRAY VIEWS OF THE RIGHT HAND; THREE XRAY VIEWS OF THE RIGHT WRIST 02/03/2021 5:21 pm COMPARISON: None. HISTORY: ORDERING SYSTEM PROVIDED HISTORY: Reason for Exam: Pain Trauma FINDINGS: Final degenerative change of the 1st metacarpophalangeal joint. No acute fracture or dislocation. Carpal rows are intact. No radiopaque foreign body. IMPRESSION: No acute osseous abnormality Interpreted by: Garrett Roper Preliminary Report By: Garrett Roper Electronically signed By Garrett Roper Dictated Date: 02/03/2021 5:59:19 PM Prelim Date: 02/03/2021 6:01:09 PM Sign Date: 02/03/2021 6:01:09 PM Ordering Provider: NED [place] [facility] ([place] Clinical Summary: HMSPatient IDon 02-17-2020 OOP [facility] [place] [facility] Work Phone: Office Visit: visi t with practice, Rm: 40on 02-17-2020 NEGATED: Highlighted rowMRI (magnetic resonance imaging) history of the thoracic and lumbar spine on 12/17/2019 at [facility] [place] [facility] Work Phone: NEGATED: Highlighted rowTobacco smoking status NHIS Tobacco smoking status [facility] Work Phone: EMERGENCY REPORTon 7 EMERGENCY REPORT [facility] EMERGENCY ROOM REPORT NAME NUMBER SEX AGE ADMIT DISC TYPE MED.RECORD# BHARAT FINCH [id number] M [id number] 02/07/2017 02/07/2017 Margaret [id number] ROOM:ER DATE OF :1965 PHYSICIAN NO.: PHYSICIAN NAME: PHYSICIAN:CLAUDIA LOUIS CHIEF COMPLAINT: Left shoulder pain. 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 He states that, yesterday, he was on the side of a truck and slipped and fell, and, as he was falling, he caught himself with his left arm on grasping the truck. He states that his shoulder jerked, and he felt something in his left shoulder area. He had some pain at that area at the time, but it was nearly time to leave work. He states this happened about 4 o'clock. He states, by the time he got home around 5, it was more painful, and, upon awakening this morning, he had fairly marked pain with significant difficulty moving his left arm at the shoulder. Pain seems to be focused a little more over the anterior aspect of the shoulder and radiates down toward his elbow. He can move his elbow, wrist, hand, and fingers but has very limited movement at the left shoulder. Not complaining of significant pain to the neck or back area. No numbness or tingling to the arm. He did not have any direct trauma to the arm or shoulder. PAST MEDICAL HISTORY: Significant for hypertension. He takes medications for that. Also has a history of coronary artery disease, previous coronary bypass surgery. MEDICATIONS: Per medication reconciliation list. ALLERGIES: He has no allergies. SOCIAL HISTORY: Patient lives at home. He does not smoke. This injury did occur at work. PHYSICAL EXAMINATION: A 51-year-old heavy built male, alert, appropriate, does not appear toxic. Vital signs: Blood pressure 176/127, pulse 58, respirations 18. HEENT examination is unremarkable. He has normal range of motion to his head or neck without any significant tenderness to any cervical areas. He has very limited movement at the left shoulder. Mild internal and external rotation is done, but, whenever he attempts to abduct the shoulder, it is quite painful. Gross examination to the shoulder reveals no obvious deformity, soft tissue swelling, redness, bruising, etc. He does have tenderness over the anterior aspect of the shoulder along the bicipital groove area at the humeral head and diffusely in that area radiating down into the shoulder into the proximal humerus. I cannot palpate any muscular defects; although, he is big built with some mild obesity. He definitely has limited range of motion with abduction and has significant pain with decreased motor strength when he attempts to flex at the elbow against resistance. Biceps tendon is palpated at the elbow. DIAGNOSTIC DATA: Left shoulder x-ray did not show any bony or joint injury. DIAGNOSIS: 1. Acute left shoulder injury. Suspect biceps muscle or tendon injury. 2. Poorly-controlled blood pressure. PLAN/DISPOSITION: Recommend that he follow up with Orthopaedics for further evaluation. Very limited use of that arm is indicated in the meantime. He was given a prescription for naproxen 500 mg b.i.d. He is to have his blood pressure rechecked as well. D: CLAUDIA LOUIS TD: 02/07/2017 09:59:16 EMERGENCY ROOM REPORT BHARAT FINCH 1 [facility] EMERGENCY ROOM REPORT NAME NUMBER SEX AGE ADMIT DISC TYPE MED.RECORD# BHARAT FINCH [id number] M 51 02/07/2017 02/07/2017 EKelley[place]elley [id number] ROOM:ER DATE OF :1965 PHYSICIAN NO.: PHYSICIAN NAME: PHYSICIAN:CLAUDIA LOUIS JOB #: [id number] JANETT Louis M.D. Emergency Department 02/13/17 07:06 Transcribed by: RENETTA 02/07/2017 09:59:16 Copy for: HERIBERTO Plummer Copy for: ARASH Taylor MD via fax EMERGENCY ROOM REPORT BHARAT FINCH 2 Normal [facility] SHOULDER COMPLETE LTon 02-07 [place] [address] Patient: BHARAT FINCH Phone#: : 1965 Age: 51 Gender: M Pt. Type: ER Account: [id number] Location: 052 Ordering: CLAUDIA LOUIS Exam Date: 02/07/2017/9:28 Family Phys: RADHA MEJÍA Charge Code: 467209 Physician: Peach Order #: [id number] DLP Dose#: PROCEDURE: X-RAY SHOULDER LT MIN 2 VIEWS COMPARISON: None. INDICATIONS: Trauma FINDINGS: BONES: Degenerative changes are present at the acromioclavicular joint. SOFT TISSUES: Negative. No visible soft tissue swelling. EFFUSION: None visible. OTHER: Negative. CONCLUSION: No acute disease. Dictated by: Brenda Lloyd MD on 02/07/2017 at 9:49 Approved by: Brenda Lloyd MD on 02/07/2017 at 9:49 Normal [facility] Lab Report: Lipid Profileon 08-30-2016 Cholesterol 148 mg/dL Invalid Interpretation Code 200 [facility] Work Phone: HDL Cholesterol 43 mg/dL Invalid Interpretation Code [facility] Work Phone: LDL Cholesterol 80 mg/dL Invalid Interpretation Code 0-130 [facility] Work Phone: Triglyceride 127 mg/dL Invalid Interpretation Code [facility] Work Phone: [phone] very low density lipoproteins 25 mg/dL Invalid Interpretation Code 5-40 [facility] Work Phone: [phone] Lab Report: Liver Profileon 08-30-2016 Alanine aminotransferase (ALT) 36 U/L Invalid Interpretation Code 12-78 [facility] Work Phone: [phone] Albumin 3.9 g/dL Invalid Interpretation Code 3.4-5.0 [facility] Work Phone: [phone] Alkaline phosphatase (ALP) 67 U/L Invalid Interpretation Code 45-117 [facility] Work Phone: [phone] ALP (Bld) [Catalytic activity/Vol] 67 U/L 45-117 [facility] Work Phone: [phone] Aspartate aminotransferase (AST) 43 U/L High 15-37 [facility] Work Phone: [phone] Bilirubin (direct) 0.14 mg/dL Invalid Interpretation Code 0.00-0.30 [facility] Work Phone: [phone] Bilirubin (total) 0.70 mg/dL Invalid Interpretation Code 0.20-1.00 [facility] Work Phone: [phone] Globulin 3.3 g/dL Invalid Interpretation Code 2.3-3.5 [facility] Work Phone: [phone] Globulin (S) [Mass/Vol] 3.3 g/dL 2.3-3.5 [facility] Work Phone: [phone] Protein 7.2 g/dL Invalid Interpretation Code 6.4-8.2 [facility] Work Phone: [phone] Office Visiton 08-30-2016 Dietary management education, guidance, and counseling (procedure) yes Invalid Interpretation Code [facility] Work Phone: [phone] Documentation of current medications (procedure) Done Invalid Interpretation Code [facility] Work Phone: [phone] Office Visiton 08-08-2015 Documentation of current medications (procedure) Done Invalid Interpretation Code [facility] Work Phone: [phone] Lab Report: Lipid Profileon 07-15-2014 Cholesterol 121 mg/dL Invalid Interpretation Code 200 [facility] Work Phone: [phone] HDL Cholesterol 37 mg/dL Critically low [facility] Work Phone: [phone] LDL Cholesterol 61 mg/dL Invalid Interpretation Code 0-130 [facility] Work Phone: [phone] Triglyceride 115 mg/dL Invalid Interpretation Code 0-199 [facility] Work Phone: [phone] very low density lipoproteins 23 mg/dL Invalid Interpretation Code 5-40 [facility] Work Phone: [phone] Lab Report: Liver Profileon 07-15-2014 Alanine aminotransferase (ALT) 32 U/L Invalid Interpretation Code 12-78 [facility] Work Phone: [phone] Albumin 3.9 g/dL Invalid Interpretation Code 3.4-5.0 [facility] [facility] Work Phone: [phone] Alkaline phosphatase (ALP) 62 U/L Invalid Interpretation Code 50-136 [facility] Work Phone: [phone] Aspartate aminotransferase (AST) 35 U/L Invalid Interpretation Code 15-37 [facility] Work Phone: [phone] Bilirubin (direct) 0.11 mg/dL Invalid Interpretation Code 0.00-0.30 [facility] Work Phone: [phone] Bilirubin (total) 0.70 mg/dL Invalid Interpretation Code 0.00-4.00 [facility] Phone: [phone] Globulin 3.4 g/dL Invalid Interpretation Code 2.7-4.2 [facility] Work Phone: [phone] Protein 7.3 g/dL Invalid Interpretation Code 6.4-8.2 [facility] Work Phone: [phone] Office Visiton 07-15-2014 cardiac risk group C Invalid Interpretation Code [facility] Phone: [phone] General cardiovascular disease 10Y risk [#] Kathleen.Eliezer'Agoriley N/A Invalid Interpretation Code [facility] Phone: [phone] Tobacco smoking status NHIS Never smoker [facility] Work Phone: [phone] Tobacco use CPHS Never smoker Invalid Interpretation Code [facility] Work Phone: Lab Report: LIVERon 11-11-19 13 GE use only - for [employer] import when terms are not otherwise specified 7.4 g/dL Normal 6.4-8.2 [facility] Work Phone: TPROT 7.4 g/dL Normal 6.4-8.2 [facility] Work Phone: Office Visiton 11-10-2012 Alcoholism counseling (procedure) no Invalid Interpretation Code [facility] Work Phone: COVID-19 virus antigen assay SARS-CoV-2 (COVID-19) Ag IA.rapid Ql (Resp) [facility] Work Phone: Vital Signs Date Time Vital Sign Value Performing Clinician Facility 12-09-2024 12:02-0400 Body mass index (BMI) [Ratio] 37.66 kg/m2 Nandini Flores PA-C Work Phone: [facility] 12-09-2024 12:02-0400 Body weight 115.67 kg Nandini Flores PA-C Work Phone: [facility] 12-09-2024 12:02-0400 Diastolic blood pressure 62 mm[Hg] Nandini Flores PA-C Work Phone: [facility] 12-09-2024 12:02-0400 Heart rate 60 /min Nandini Flores PA-C Work Phone: [facility] 12-09-2024 12:02-0400 Respiratory rate 18 /min Nandini Flores PA-C Work Phone: [facility] 12-09-2024 12:02-0400 SaO2% (BldA) [Mass fraction] 97 % Nandini CARTER-C Work Phone: [facility] 12-09-2024 12:02-0400 Systolic blood pressure 116 mm[Hg] Nandini Flores PA-C Work Phone: [facility] 11-24-2024 08:08-0400 Body height 175.[address] Bharat Coronado MD Work Phone: 2(671)583-712479 [place] [address] 11-24-2024 08:08-0400 Body mass index (BMI) [Ratio] 37.3 kg/m2 Dr. Bharat Coronado MD Work Phone: 7(542)266-886279 [place] [address] 11-24-2024 08:08-0400 Body weight 114.[address] Bharat Coronado MD Work Phone: 1(649)879-979479 [place] [address] 11-24-2024 08:08-0400 Diastolic blood pressure 67 mm[Hg] Dr. Bharat Coronado MD Work Phone: 1(094)436-048179 [place] [address] 11-24-2024 08:08-0400 Heart rate 59 /min Dr. Bharat Coronado MD Work Phone: 3(620)562-864179 [place] [address] 11-24-2024 08:08-0400 Respiratory rate 16 /min Dr. Bharat Coronado MD Work Phone: 4(657)266-549679 [place] [address] 11-24-2024 08:08-0400 Systolic blood pressure 120 mm[Hg] Dr. Bharat Coronado MD Work Phone: 3(500)250-438079 [place] [address] 11-22-2024 07:54-0400 Body mass index (BMI) [Ratio] 37.6 kg/m2 Dr. Bharat Coronado MD Work Phone: 3(909)496-659379 [place] [address] 11-22-2024 07:54-0400 Body temperature 97.1 [degF] Dr. Bharat Coronado MD Work Phone: 4(416)471-925179 [place] [address] 11-22-2024 07:54-0400 Body weight 115.[address] Bharat Coronado MD Work Phone: 5(928)412-973579 [place] [address] 11-22-2024 07:54-0400 Diastolic blood pressure 82 mm[Hg] Dr. Bharat Coronado MD Work Phone: 1(894)914-174079 [place] [address] 11-22-2024 07:54-0400 Heart rate 54 /min Dr. Bharat Coronado MD Work Phone: 2(682)635-096279 [place] [address] 11-22-2024 07:54-0400 Respiratory rate 18 /min Dr. Bharat Coronado MD Work Phone: 2(018)583-965679 [place] [address] 11-22-2024 07:54-0400 SaO2% (BldA) [Mass fraction] 99 % Dr. Bharat Coronado MD Work Phone: 6(759)994-024879 [place] [address] 11-22-2024 07:54-0400 Systolic blood pressure 155 mm[Hg] Dr. Bharat Coronado MD Work Phone: 6(515)105-816079 [place] [address] 09-20-2024 15:40-0400 Body temperature 98.2 [degF] Dr. Bharat Coronado MD Work Phone: 5(216)182-788879 [place] [address] 09-20-2024 15:40-0400 Diastolic blood pressure 90 mm[Hg] Dr. Bharat Coronado MD Work Phone: 1(610)803-124879 [place] [address] 09-20-2024 15:40-0400 Heart rate 60 /min Dr. Bharat Coronado MD Work Phone: 6(205)645-971779 [place] [address] 09-20-2024 15:40-0400 Respiratory rate 16 /min Dr. Bharat Coronado MD Work Phone: 5(011)897-254579 [place] [address] 09-20-2024 15:40-0400 SaO2% (BldA) [Mass fraction] 100 % Dr. Bharat Coronado MD Work Phone: 9(661)530-198379 [place] [address] 09-20-2024 15:40-0400 Systolic blood pressure 145 mm[Hg] Dr. Bharat Coronado MD Work Phone: 8(947)775-826579 [place] [address] 09-20-2024 14:13-0400 Inhaled oxygen flow rate 4 L/min Dr. Bharat Coronado MD Work Phone: 1(025)839-296279 [place] [address] 09-20-2024 13:24-0400 Body mass index (BMI) [Ratio] 37.9 kg/m2 Dr. Bharat Coronado MD Work Phone: 4(106)733-819279 [place] [address] 09-20-2024 13:24-0400 Body weight 116.[address] Bharat Coronado MD Work Phone: 0(023)618-632579 [place] [address] 09-20-2024 13:14-0400 Body height 175.[address] Bharat Coronado MD Work Phone: 3(566)446-953579 [place] [address] 08-16-2024 07:30-0400 Body weight 111.[address] Bharat Coronado MD Work Phone: 3(079)501-185579 [place] [address] 08-13-2024 07:17-0400 Body mass index (BMI) [Ratio] 36.1 kg/m2 Dr. Bharat Coronado MD Work Phone: 1(118)926-652079 [place] [address] 07-21-2024 07:54-0400 Body mass index (BMI) [Ratio] 36.4 kg/m2 Dr. Bharat Coronado MD Work Phone: 5(305)171-183579 [place] [address] 07-21-2024 07:54-0400 Body temperature 97.4 [degF] Dr. Bharat Coronado MD Work Phone: 0(635)453-181879 [place] [address] 07-21-2024 07:54-0400 Body weight 112.[address] Bharat Coronado MD Work Phone: 8(178)564-831579 [place] [address] 07-21-2024 07:54-0400 Diastolic blood pressure 84 mm[Hg] Dr. Bharat Coronado MD Work Phone: 6(690)859-845079 [place] [address] 07-21-2024 07:54-0400 Heart rate 79 /min Dr. Bharat Coronado MD Work Phone: 2(270)856-525179 [place] [address] 07-21-2024 07:54-0400 Respiratory rate 18 /min Dr. Bharat Coronado MD Work Phone: 6(360)495-231579 [place] [address] 07-21-2024 07:54-0400 SaO2% (BldA) [Mass fraction] 97 % Dr. Bharat Coronado MD Work Phone: 0(833)925-752279 [place] [address] 07-21-2024 07:54-0400 Systolic blood pressure 160 mm[Hg] Dr. Bharat Coronado MD Work Phone: 1(251)893-929779 [place] [address] 07-20-2024 10:50-0400 Body mass index (BMI) [Ratio] 36.1 kg/m2 Dr. Bharat Coronado MD Work Phone: 2(431)637-342979 [place] [address] 07-20-2024 10:50-0400 Body weight 111.[address] Bharat Coronado MD Work Phone: 9(624)170-073679 [place] [address] 07-20-2024 10:50-0400 Diastolic blood pressure 78 mm[Hg] Dr. Bharat Coronado MD Work Phone: 4(109)764-961279 [place] [address] 07-20-2024 10:50-0400 Heart rate 60 /min Dr. Bharat Coronado MD Work Phone: 4(142)515-278479 [place] [address] 07-20-2024 10:50-0400 Respiratory rate 16 /min Dr. Bharat Coronado MD Work Phone: 8(800)839-237779 [place] [address] 07-20-2024 10:50-0400 Systolic blood pressure 137 mm[Hg] Dr. Bharat Coronado MD Work Phone: 3(323)742-299079 [place] [address] 07-15-2024 11:07-0400 Body temperature 97.7 [degF] Dr. Bharat Coronado MD Work Phone: 4(413)198-134579 [place] [address] 07-15-2024 11:07-0400 Diastolic blood pressure 68 mm[Hg] Dr. Bharat Coronado MD Work Phone: 1(712)824-498279 [place] [address] 07-15-2024 11:07-0400 Heart rate 60 /min Dr. Bharat Coronado MD Work Phone: 4(532)077-144079 [place] [address] 07-15-2024 11:07-0400 Respiratory rate 16 /min Dr. Bharat Coronado MD Work Phone: 9(222)200-177079 [place] [address] 07-15-2024 11:07-0400 SaO2% (BldA) [Mass fraction] 100 % Dr. Bharat Coronado MD Work Phone: 5(575)169-466479 [place] [address] 07-15-2024 11:07-0400 Systolic blood pressure 117 mm[Hg] Dr. Bharat Coronado MD Work Phone: 7(087)340-237279 [place] [address] 07-15-2024 09:20-0400 Inhaled oxygen flow rate 2 L/min Dr. Bharat Coronado MD Work Phone: 6(041)791-380879 [place] [address] 07-15-2024 08:36-0400 Body height 175.[address] Bharat Coronado MD Work Phone: 1(173)556-981979 [place] [address] 07-15-2024 08:36-0400 Body mass index (BMI) [Ratio] 36.1 kg/m2 Dr. Bharat Coronado MD Work Phone: 8(649)853-207379 [place] [address] 07-15-2024 08:36-0400 Body weight [address] Bharat Coronado MD Work Phone: 0(055)014-045879 [place] [address] 07-04-2024 14:28-0400 Body temperature 98 [degF] Dr. Bharat Coronado MD Work Phone: 0(839)451-838779 [place] [address] 07-04-2024 14:28-0400 Diastolic blood pressure 84 mm[Hg] Dr. Bharat Coronado MD Work Phone: 7(309)572-972179 [place] [address] 07-04-2024 14:28-0400 Heart rate 74 /min Dr. Bharat Coronado MD Work Phone: 2(468)625-390479 [place] [address] 07-04-2024 14:28-0400 Respiratory rate 16 /min Dr. Bharat Coronado MD Work Phone: 9(471)065-876779 [place] [address] 07-04-2024 14:28-0400 SaO2% (BldA) [Mass fraction] 98 % Dr. Bharat Coronado MD Work Phone: 8(753)956-004979 [place] [address] 07-04-2024 14:28-0400 Systolic blood pressure 118 mm[Hg] Dr. Bharat Coronado MD Work Phone: 4(899)040-361279 [place] [address] 07-04-2024 12:49-0400 Inhaled oxygen flow rate 99 L/min Dr. Bharat Coronado MD Work Phone: 2(050)983-398879 [place] [address] 07-04-2024 11:28-0400 Body height 175.[address] Bharat Coronado MD Work Phone: 6(934)577-940479 [place] [address] 07-04-2024 11:28-0400 Body mass index (BMI) [Ratio] 36.7 kg/m2 Dr. Bharat Coronado MD Work Phone: [facility] 07-04-2024 11:28-0400 Body weight 112.[address] Bharat Coronado MD Work Phone: [facility] 06-02-2024 15:34-0500 Body mass index (BMI) [Ratio] 36.9 kg/m2 Dr. Bharat Coronado MD Work Phone: [facility] 06-02-2024 15:34-0500 Body weight 113.[address] Bharat Coronado MD Work Phone: [facility] 06-02-2024 15:34-0500 Diastolic blood pressure 70 mm[Hg] Dr. Bharat Coronado MD Work Phone: [facility] 06-02-2024 15:34-0500 Heart rate 71 /min Dr. Bharat Coronado MD Work Phone: [facility] 06-02-2024 15:34-0500 Respiratory rate 18 /min Dr. Bharat Coronado MD Work Phone: [facility] 06-02-2024 15:34-0500 Systolic blood pressure 123 mm[Hg] Dr. Bharat Coronado MD Work Phone: [facility] 06-01-2024 08:07-0500 Body height 175.3 cm Davonte Augustin APRN.[employer]ISE [employer] TEAM LEADER Work Phone: [facility] 06-01-2024 08:07-0500 Body mass index (BMI) [Ratio] 37.21 kg/m2 Davonte Augustin APRN.[employer]ISE [employer] TEAM LEADER Work Phone: [facility] 06-01-2024 08:07-0500 Body weight 114.31 kg Davonte Augustin APRN.[employer]ISE [employer] TEAM LEADER Work Phone: [facility] 06-01-2024 08:07-0500 Diastolic blood pressure 80 mm[Hg] Davonte Augustin APRN.[employer]ISE [employer] TEAM LEADER Work Phone: [facility] 06-01-2024 08:07-0500 Heart rate 60 /min Davonte Augustin APRN.[employer]ISE [employer] TEAM LEADER Work Phone: [facility] 06-01-2024 08:07-0500 Respiratory rate 18 /min Davonte Augustin 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.[employer]ISE [employer] TEAM LEADER Work Phone: [facility] 06-01-2024 08:07-0500 SaO2% (BldA) [Mass fraction] 99 % Davonte Augustin 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.[employer]ISE [employer] TEAM LEADER Work Phone: [facility] 06-01-2024 08:07-0500 Systolic blood pressure 138 mm[Hg] Davonte Augustin 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.[employer]ISE [employer] TEAM LEADER Work Phone: [facility] 05-10-2024 14:44-0500 Body temperature 98.7 [degF] Dr. Bharat Coronado MD Work Phone: [facility] 05-10-2024 14:44-0500 Diastolic blood pressure 89 mm[Hg] Dr. Bharat Coronado MD Work Phone: [facility] 05-10-2024 14:44-0500 Heart rate 69 /min Dr. Bharat Coronado MD Work Phone: [facility] 05-10-2024 14:44-0500 Respiratory rate 15 /min Dr. Bharat Coronado MD Work Phone: [facility] 05-10-2024 14:44-0500 SaO2% (BldA) [Mass fraction] 99 % Dr. Bharat Coronado MD Work Phone: [facility] 05-10-2024 14:44-0500 Systolic blood pressure 143 mm[Hg] Dr. Bharat Coronado MD Work Phone: [facility] 05-10-2024 12:30-0500 Inhaled oxygen flow rate 0 L/min Dr. Bharat Coronado MD Work Phone: [facility] 05-10-2024 12:12-0500 Inhaled oxygen concentration 2 % Dr. Bharat Coronado MD Work Phone: [facility] 05-10-2024 11:13-0500 Body mass index (BMI) [Ratio] 37.5 kg/m2 Dr. Bharat Coronado MD Work Phone: 3(562)041-958879 [place] [address] 05-10-2024 11:13-0500 Body weight 115.[address] Bharat Coronado MD Work Phone: 3(366)407-736779 [place] [address] 05-10-2024 10:28-0500 Body mass index (BMI) [Ratio] 37.2 kg/m2 Dr. Bharat Coronado MD Work Phone: 0(159)652-874779 [place] [address] 05-10-2024 10:28-0500 Body weight 114.[address] Bharat Coronado MD Work Phone: 3(831)766-311279 [place] [address] 05-10-2024 10:28-0500 Diastolic blood pressure 90 mm[Hg] Dr. Bharat Coronado MD Work Phone: 5(611)649-253379 [place] [address] 05-10-2024 10:28-0500 Heart rate 64 /min Dr. Bharat Coronado MD Work Phone: 8(578)507-788979 [place] [address] 05-10-2024 10:28-0500 Respiratory rate 20 /min Dr. Bharat Coronado MD Work Phone: 0(701)938-270779 [place] [address] 05-10-2024 10:28-0500 SaO2% (BldA) [Mass fraction] 94 % Dr. Bharat Coronado MD Work Phone: 2(985)298-568379 [place] [address] 05-10-2024 10:28-0500 Systolic blood pressure 124 mm[Hg] Dr. Bharat Coronado MD Work Phone: [facility] 04-08-2024 18:25-0500 Body mass index (BMI) [Ratio] 37.24 kg/m2 Nino Das APRN.[employer]ISE [employer] TEAM LEADER Work Phone: [facility] 04-08-2024 18:25-0500 Body temperature 98.1 [degF] Nino Das APRN.[employer]CH[employer]ISE [employer] TEAM LEADER Work Phone: [facility] 04-08-2024 18:25-0500 Body weight 114.4 kg Nino Das APRN.[employer]ISE [employer] TEAM LEADER Work Phone: [facility] 04-08-2024 18:25-0500 Diastolic blood pressure 80 mm[Hg] Nino Praisler-Wood 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.MERCHANDISE [employer]OW TEAM LEADER Work Phone: [facility] 04-08-2024 18:25-0500 Heart rate 90 /min Nino Praisler-Wood 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.MERCHANDISE [employer]OW TEAM LEADER Work Phone: [facility] 04-08-2024 18:25-0500 Respiratory rate 16 /min Nino Praisler-Wood 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.MERCH[employer]ISE [employer]OW TEAM LEADER Work Phone: [facility] 04-08-2024 18:25-0500 SaO2% (BldA) [Mass fraction] 99 % Nino Praisler-Wood 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.MERCH[employer]ISE [employer]OW TEAM LEADER Work Phone: [facility] 04-08-2024 18:25-0500 Systolic blood pressure 128 mm[Hg] Nino Praisler-Wood 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.MERCH[employer]ISE [employer] TEAM LEADER Work Phone: [facility] 03-30-2024 14:54-0500 Body temperature 97.9 [degF] Dr. Bharat Coronado MD Work Phone: [facility] 03-30-2024 14:54-0500 Diastolic blood pressure 91 mm[Hg] Dr. Bharat Coronado MD Work Phone: [facility] 03-30-2024 14:54-0500 Heart rate 141 /min Dr. Bharat Coronado MD Work Phone: [facility] 03-30-2024 14:54-0500 Respiratory rate 19 /min Dr. Bharat Coronado MD Work Phone: [facility] 03-30-2024 14:54-0500 SaO2% (BldA) [Mass fraction] 97 % Dr. Bharat Coronado MD Work Phone: [facility] 03-30-2024 14:54-0500 Systolic blood pressure 140 mm[Hg] Dr. Bharat Coronado MD Work Phone: [facility] 03-30-2024 13:44-0500 Inhaled oxygen flow rate 5 L/min Dr. Bharat Coronado MD Work Phone: [facility] 03-30-2024 09:25-0500 Body mass index (BMI) [Ratio] 37.4 kg/m2 Dr. Bharat Coronado MD Work Phone: [facility] 03-30-2024 09:25-0500 Body weight [address] Bharat Coronado MD Work Phone: [facility] 02-20-2024 10:41-0500 Body height 175.3 cm Suzi House 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.MERCH[employer]ISE [employer]OW TEAM LEADER Work Phone: [facility] 02-20-2024 10:41-0500 Body mass index (BMI) [Ratio] 34.85 kg/m2 Suzi House 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.MERCH[employer]ISE [employer] TEAM LEADER Work Phone: [facility] 02-20-2024 10:41-0500 Body weight 107.05 kg Suzi House 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.MERCH[employer]ISE [employer] TEAM LEADER Work Phone: [facility] 02-20-2024 10:41-0500 Diastolic blood pressure 82 mm[Hg] Suzi House 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.MERCH[employer]ISE [employer] TEAM LEADER Work Phone: [facility] 02-20-2024 10:41-0500 Heart rate 60 /min Suzi House APRN.MERCH[employer]ISE [employer] TEAM LEADER Work Phone: [facility] 02-20-2024 10:41-0500 Respiratory rate 18 /min Suzi House 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.MERCH[employer]ISE [employer]OW TEAM LEADER Work Phone: [facility] 02-20-2024 10:41-0500 SaO2% (BldA) [Mass fraction] 99 % Suzi House APRN.MERCH[employer]ISE [employer]OW TEAM LEADER Work Phone: [facility] 02-20-2024 10:41-0500 Systolic blood pressure 124 mm[Hg] Suzi House APRN.MERCH[employer]ISE [employer] TEAM LEADER Work Phone: [facility] 02-16-2024 07:31-0500 Body mass index (BMI) [Ratio] 35.74 kg/m2 Wily Mcghee 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.MERCH[employer]ISE [employer]OW TEAM LEADER Work Phone: [facility] 02-16-2024 07:31-0500 Body weight 109.77 kg Wily Haroon 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.MERCH[employer]ISE [employer] TEAM LEADER Work Phone: [facility] 02-16-2024 07:31-0500 Diastolic blood pressure 78 mm[Hg] Wily Haroon 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.MERCH[employer]ISE [employer] TEAM LEADER Work Phone: [facility] 02-16-2024 07:31-0500 Heart rate 60 /min Wily Haroon 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.MERCHANDISE [employer]OW TEAM LEADER Work Phone: [facility] 02-16-2024 07:31-0500 Respiratory rate 16 /min Wily Haroon 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.MERCHANDISE [employer] TEAM LEADER Work Phone: [facility] 02-16-2024 07:31-0500 SaO2% (BldA) [Mass fraction] 97 % Wily Haroon 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.MERCH[employer]ISE [employer] TEAM LEADER Work Phone: [facility] 02-16-2024 07:31-0500 Systolic blood pressure 138 mm[Hg] Wily Haroon 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.MERCHANDISE [employer]OW TEAM LEADER Work Phone: [facility] 09-12-2023 10:26-0400 Body height 175.3 cm Radha Hughes MD Work Phone: [facility] 09-12-2023 10:26-0400 Body mass index (BMI) [Ratio] 36.18 kg/m2 Radha Hughes MD Work Phone: [facility] 09-12-2023 10:26-0400 Body weight 111.13 kg Radha Hughes MD Work Phone: [facility] 09-12-2023 10:26-0400 Diastolic blood pressure 90 mm[Hg] Radha Hughes MD Work Phone: [facility] 09-12-2023 10:26-0400 Heart rate 122 /min Radha Hughes MD Work Phone: [facility] 09-12-2023 10:26-0400 Respiratory rate 18 /min Radha Hughes MD Work Phone: [facility] 09-12-2023 10:26-0400 SaO2% (BldA) [Mass fraction] 100 % Radha Hughes MD Work Phone: [facility] 09-12-2023 10:26-0400 Systolic blood pressure 134 mm[Hg] Radha Hughes MD Work Phone: [facility] 08-20-2023 08:02-0400 Body temperature 97.6 [degF] Dr. Bharat Coronado Work Phone: [facility] 08-20-2023 08:02-0400 Diastolic blood pressure 92 mm[Hg] Dr. Bharat Coronado Work Phone: [facility] 08-20-2023 08:02-0400 Heart rate 101 /min Dr. Bharat Coronado Work Phone: [facility] 08-20-2023 08:02-0400 Respiratory rate 18 /min Dr. Bharat Coronado Work Phone: [facility] 08-20-2023 08:02-0400 SaO2% (BldA) [Mass fraction] 96 % Dr. Bharat Coronado Work Phone: [facility] 08-20-2023 08:02-0400 Systolic blood pressure 116 mm[Hg] Dr. Bharat Coronado Work Phone: [facility] 08-20-2023 03:39-0400 Inhaled oxygen flow rate 2 L/min Dr. Bharat Coronado Work Phone: [facility] 08-19-2023 07:52-0400 Body height 175.[address] Bharat Coronado Work Phone: [facility] 08-19-2023 07:52-0400 Body weight 113.[address] Bharat Coronado Work Phone: [facility] 08-18-2023 08:49-0400 Body mass index (BMI) [Ratio] 36.9 kg/m2 Dr. Bharat Coronado Work Phone: [facility] 08-14-2023 10:25-0400 Body mass index (BMI) [Ratio] 36 kg/m2 Dr. Bharat Coronado Work Phone: [facility] 08-14-2023 10:25-0400 Body weight 110.[address] Bharat Coronado Work Phone: [facility] 08-14-2023 10:25-0400 Diastolic blood pressure 82 mm[Hg] Dr. Bharat Coronado Work Phone: [facility] 08-14-2023 10:25-0400 Heart rate 74 /min Dr. Bharat Coronado Work Phone: [facility] 08-14-2023 10:25-0400 Respiratory rate 20 /min Dr. Bharat Coronado Work Phone: [facility] 08-14-2023 10:25-0400 SaO2% (BldA) [Mass fraction] 97 % Dr. Bharat Coronado Work Phone: [facility] 08-14-2023 10:25-0400 Systolic blood pressure 131 mm[Hg] Dr. Bharat Coronado Work Phone: [facility] 08-14-2023 08:05-0400 Body mass index (BMI) [Ratio] 36.18 kg/m2 Suly Cruzf 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.MERCH[employer]ISE [employer]OW TEAM LEADER Work Phone: [facility] 08-14-2023 08:05-0400 Body weight 111.13 kg Suly Cruzf 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.MERCHANDISE FLOW TEAM LEADER Work Phone: [facility] 08-14-2023 08:05-0400 Diastolic blood pressure 70 mm[Hg] Suly Mayberryhof 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.MERCHANDISE FLOW TEAM LEADER Work Phone: [facility] 08-14-2023 08:05-0400 Heart rate 102 /min Suly Mayberryhof 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.MERCHANDISE FLOW TEAM LEADER Work Phone: [facility] 08-14-2023 08:05-0400 Respiratory rate 16 /min Sulyphoenix Mayberryhof 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.MERCHANDISE FLOW TEAM LEADER Work Phone: [facility] 08-14-2023 08:05-0400 SaO2% (BldA) [Mass fraction] 99 % Suly Bah 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.MERCH[employer]ISE [employer]OW TEAM LEADER Work Phone: [facility] 08-14-2023 08:05-0400 Systolic blood pressure 118 mm[Hg] Suly Cruzf 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.MERCHANDISE [employer]OW TEAM LEADER Work Phone: [facility] 08-12-2023 19:17-0400 Body mass index (BMI) [Ratio] 36.27 kg/m2 Santiago Aviles 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.MERCHANDISE FLOW TEAM LEADER Work Phone: [facility] 08-12-2023 19:17-0400 Body temperature 100.09 [degF] Santiago Aviles 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.MERCHANDISE FLOW TEAM LEADER Work Phone: [facility] 08-12-2023 19:17-0400 Body weight 111.4 kg Santiago Aviles 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.MERCHANDISE FLOW TEAM LEADER Work Phone: [facility] 08-12-2023 19:17-0400 Diastolic blood pressure 82 mm[Hg] Santiago Aviles 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.MERCHANDISE FLOW TEAM LEADER Work Phone: [facility] 08-12-2023 19:17-0400 Heart rate 68 /min Santiago Aviles 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.MERCHANDISE FLOW TEAM LEADER Work Phone: [facility] 08-12-2023 19:17-0400 Respiratory rate 18 /min Santiago Aviles 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.MERCHANDISE FLOW TEAM LEADER Work Phone: [facility] 08-12-2023 19:17-0400 SaO2% (BldA) [Mass fraction] 97 % Santiago Aviles 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.MERCHANDISE FLOW TEAM LEADER Work Phone: [facility] 08-12-2023 19:17-0400 Systolic blood pressure 128 mm[Hg] Santiago Aviles 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.MERCHANDISE FLOW TEAM LEADER Work Phone: [facility] 08-07-2023 12:42-0400 Body mass index (BMI) [Ratio] 36.77 kg/m2 Suly Bah 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.MERCHANDISE FLOW TEAM LEADER Work Phone: [facility] 08-07-2023 12:42-0400 Body temperature 100.6 [degF] Suly Bah 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.MERCHANDISE FLOW TEAM LEADER Work Phone: [facility] 08-07-2023 12:42-0400 Body weight 112.95 kg Suly Mayberryhof 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.MERCHANDISE FLOW TEAM LEADER Work Phone: [facility] 08-07-2023 12:42-0400 Diastolic blood pressure 70 mm[Hg] Suly Mayberryhof 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.MERCHANDISE FLOW TEAM LEADER Work Phone: [facility] 08-07-2023 12:42-0400 Heart rate 82 /min Suly Mayberryhof 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.MERCHANDISE FLOW TEAM LEADER Work Phone: [facility] 08-07-2023 12:42-0400 Respiratory rate 16 /min Suly Mayberryhof 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.MERCHANDISE FLOW TEAM LEADER Work Phone: [facility] 08-07-2023 12:42-0400 SaO2% (BldA) [Mass fraction] 100 % Suly Mayberryhof 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.MERCHANDISE FLOW TEAM LEADER Work Phone: [facility] 08-07-2023 12:42-0400 Systolic blood pressure 106 mm[Hg] Suly Mayberryhof 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.MERCHANDISE FLOW TEAM LEADER Work Phone: [facility] 08-02-2023 10:03-0400 Diastolic blood pressure 70 mm[Hg] Dr. Bharat Coronado Work Phone: [facility] 08-02-2023 10:03-0400 Heart rate 64 /min Dr. Bharat Coronado Work Phone: [facility] 08-02-2023 10:03-0400 Systolic blood pressure 100 mm[Hg] Dr. Bharat Coronado Work Phone: [facility] 08-02-2023 09:59-0400 Body temperature 97.8 [degF] Dr. Bharat Coronado Work Phone: [facility] 08-02-2023 09:59-0400 Respiratory rate 14 /min Dr. Bharat Coronado Work Phone: [facility] 08-02-2023 09:59-0400 SaO2% (BldA) [Mass fraction] 99 % Dr. Bharat Coronado Work Phone: [facility] 08-02-2023 08:02-0400 Inhaled oxygen flow rate 2 L/min Dr. Bharat Coronado Work Phone: [facility] 08-02-2023 04:52-0400 Body mass index (BMI) [Ratio] 35.5 kg/m2 Dr. Bharat Coronado Work Phone: [facility] 08-02-2023 04:52-0400 Body weight 109.[address] Bharat Coronado Work Phone: [facility] 07-31-2023 11:52-0400 Body height 175.[address] Bharat Coronado Work Phone: [facility] 07-28-2023 09:15-0400 Body temperature 98.49 [degF] Donavan Ludwig MD Work Phone: [facility] 07-28-2023 09:15-0400 Body weight 115 kg Donavan Ludwig MD Work Phone: [facility] 07-28-2023 09:15-0400 Diastolic blood pressure 72 mm[Hg] Donavan Ludwig MD Work Phone: [facility] 07-28-2023 09:15-0400 Heart rate 64 /min Donavan Ludwig MD Work Phone: [facility] 07-28-2023 09:15-0400 Respiratory rate 16 /min Donavan Ludwig MD Work Phone: [facility] 07-28-2023 09:15-0400 SaO2% (BldA) [Mass fraction] 97 % Donavan Ludwig MD Work Phone: [facility] 07-28-2023 09:15-0400 Systolic blood pressure 122 mm[Hg] Donavan Ludwig MD Work Phone: [facility] 06-26-2023 08:04-0400 Body height 175.[address] Bahrat Coronado Work Phone: [facility] 06-26-2023 08:04-0400 Body mass index (BMI) [Ratio] 36.9 kg/m2 Dr. Bharat Coronado Work Phone: [facility] 06-26-2023 08:04-0400 Body weight 113.[address] Bharat Coronado Work Phone: [facility] 06-26-2023 08:04-0400 Diastolic blood pressure 80 mm[Hg] Dr. Bharat Coronado Work Phone: [facility] 06-26-2023 08:04-0400 Heart rate 60 /min Dr. Bharat Coronado Work Phone: [facility] 06-26-2023 08:04-0400 Respiratory rate 20 /min Dr. Bharat Coronado Work Phone: [facility] 06-26-2023 08:04-0400 SaO2% (BldA) [Mass fraction] 97 % Dr. Bharat Coronado Work Phone: [facility] 06-26-2023 08:04-0400 Systolic blood pressure 137 mm[Hg] Dr. Bharat Coronado Work Phone: [facility] 03-18-2023 15:14-0500 Body height 175.[address] 03-18-2023 15:14-0500 Body temperature 97.3 [degF] [address] 03-18-2023 15:14-0500 Body weight 109.[address] 03-18-2023 15:14-0500 Diastolic blood pressure 72 mm[Hg] [address] 03-18-2023 15:14-0500 Heart rate 124 /min [address] 03-18-2023 15:14-0500 Respiratory rate 16 /min [address] 03-18-2023 15:14-0500 SaO2% (BldA) [Mass fraction] 97 % [address] 03-18-2023 15:14-0500 Systolic blood pressure 99 mm[Hg] [address] 03-10-2023 10:34-0500 Diastolic blood pressure 92 mm[Hg] Vinny Davis Jr., MD Work Phone: [facility] 03-10-2023 10:34-0500 Heart rate 60 /min Vinny Davis Jr., MD Work Phone: [facility] 03-10-2023 10:34-0500 SaO2% (BldA) [Mass fraction] 100 % Vinny Davis Jr., MD Work Phone: [facility] 03-10-2023 10:34-0500 Systolic blood pressure 160 mm[Hg] Vinny Davis Jr., MD Work Phone: [facility] 12-27-2022 13:23-0400 Body weight 109.95 kg Wily Haroon 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.MERCHANDISE FLOW TEAM LEADER Work Phone: [facility] 12-27-2022 13:23-0400 Diastolic blood pressure 78 mm[Hg] Wily Haroon 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.MERCHANDISE FLOW TEAM LEADER Work Phone: [facility] 12-27-2022 13:23-0400 Heart rate 60 /min Wily Haroon 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.MERCHANDISE FLOW TEAM LEADER Work Phone: [facility] 12-27-2022 13:23-0400 Respiratory rate 16 /min Wily Haroon 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.MERCHANDISE FLOW TEAM LEADER Work Phone: [facility] 12-27-2022 13:23-0400 SaO2% (BldA) [Mass fraction] 99 % Wily Haroon 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.MERCHANDISE FLOW TEAM LEADER Work Phone: [facility] 12-27-2022 13:23-0400 Systolic blood pressure 128 mm[Hg] Wily Haroon 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.MERCHANDISE FLOW TEAM LEADER Work Phone: [facility] 11-28-2022 16:20-0400 Body weight 109.32 kg Bharat Coronado MD Work Phone: [facility] 11-28-2022 16:20-0400 Diastolic blood pressure 82 mm[Hg] Bharat Coronado MD Work Phone: [facility] 11-28-2022 16:20-0400 Heart rate 60 /min Bharat Coronado MD Work Phone: [facility] 11-28-2022 16:20-0400 Respiratory rate 16 /min Bharat Coronado MD Work Phone: [facility] 11-28-2022 16:20-0400 Systolic blood pressure 124 mm[Hg] Bharat Coronado MD Work Phone: [facility] 10-29-2022 15:02-0400 Body height 177.8 cm Bharat Coronado MD Work Phone: [facility] 10-29-2022 15:02-0400 Body weight 109.68 kg Bharat Coronado MD Work Phone: [facility] 10-29-2022 15:02-0400 Diastolic blood pressure 64 mm[Hg] Bharat Coronado MD Work Phone: [facility] 10-29-2022 15:02-0400 Heart rate 64 /min Bharat Coronado MD Work Phone: [facility] 10-29-2022 15:02-0400 Respiratory rate 18 /min Bharat Coronado MD Work Phone: [facility] 10-29-2022 15:02-0400 Systolic blood pressure 108 mm[Hg] Bharat Coronado MD Work Phone: [facility] 07-30-2022 11:29-0400 Body height 175.[address] Bharat Coronado Work Phone: [facility] 07-30-2022 11:29-0400 Body mass index (BMI) [Ratio] 35.6 kg/m2 Dr. Bharat Coronado Work Phone: [facility] 07-30-2022 11:29-0400 Body weight 109.[address] Bharat Coronado Work Phone: [facility] 07-30-2022 11:29-0400 Diastolic blood pressure 77 mm[Hg] Dr. Bharat Coronado Work Phone: [facility] 07-30-2022 11:29-0400 Heart rate 62 /min Dr. Bharat Coronado Work Phone: 0(197)668-996309 [place] [address] 07-30-2022 11:29-0400 Respiratory rate 18 /min Dr. Bharat Coronado Work Phone: 4(895)037-819679 [place] [address] 07-30-2022 11:29-0400 SaO2% (BldA) [Mass fraction] 98 % Dr. Bharat Coronado Work Phone: 4(527)231-162079 [place] [address] 07-30-2022 11:29-0400 Systolic blood pressure 114 mm[Hg] Dr. Bharat Coronado Work Phone: 9(026)565-022479 [place] [address] 05-11-2022 09:05-0500 Body temperature 98 [degF] Dr. Bharat Coronado Work Phone: 1(194)215-047379 [place] [address] 05-11-2022 09:05-0500 Diastolic blood pressure 75 mm[Hg] Dr. Bharat Coronado Work Phone: 5(321)920-502079 [place] [address] 05-11-2022 09:05-0500 Heart rate 60 /min Dr. Bharat Coronado Work Phone: 9(587)926-971079 [place] [address] 05-11-2022 09:05-0500 Respiratory rate 16 /min Dr. Bharat Coronado Work Phone: 3(318)118-106779 [place] [address] 05-11-2022 09:05-0500 SaO2% (BldA) [Mass fraction] 98 % Dr. Bharat Coronado Work Phone: 8(280)728-215879 [place] [address] 05-11-2022 09:05-0500 Systolic blood pressure 141 mm[Hg] Dr. Bharat Coronado Work Phone: 4(446)382-511779 [place] [address] 05-10-2022 14:58-0500 Body height 175.[address] Bharat Coronado Work Phone: 7(876)086-206479 [place] [address] 05-10-2022 14:58-0500 Body mass index (BMI) [Ratio] 35.9 kg/m2 Dr. Bharat Coronado Work Phone: 1(251)077-160979 [place] [address] 05-10-2022 14:58-0500 Body weight 110.[address] Bharat Coronado Work Phone: 5(235)495-705879 [place] [address] 05-02-2022 11:40-0500 Body height 175.[address] Bharat Coronado Work Phone: 3(740)896-255279 [place] [address] 05-02-2022 11:33-0500 Body mass index (BMI) [Ratio] 35.9 kg/m2 Dr. Bharat Coronado Work Phone: 2(025)218-186079 [place] [address] 05-02-2022 11:33-0500 Body weight 110.[address] Bharat Coronado Work Phone: 6(254)942-188479 [place] [address] 05-02-2022 11:33-0500 Diastolic blood pressure 43 mm[Hg] Dr. Bharat Coronado Work Phone: 0(008)858-930879 [place] [address] 05-02-2022 11:33-0500 Heart rate 45 /min Dr. Bharat Coronado Work Phone: 6(608)484-277379 [place] [address] 05-02-2022 11:33-0500 Respiratory rate 20 /min Dr. Bharat Coronado Work Phone: 6(786)779-507479 [place] [address] 05-02-2022 11:33-0500 SaO2% (BldA) [Mass fraction] 97 % Dr. Bharat Coronado Work Phone: 0(244)930-376279 [place] [address] 05-02-2022 11:33-0500 Systolic blood pressure 106 mm[Hg] Dr. Bharat Coronado Work Phone: 6(091)830-995679 [place] [address] 03-26-2022 10:01-0500 Body height 175.[address] Bharat Coronado Work Phone: 8(192)327-385679 [place] [address] Work Phone: 03-26-2022 10:01-0500 Body mass index (BMI) [Ratio] 36 kg/m2 Dr. Bharat Coronado Work Phone: 2(880)391-012379 [place] [address] 03-26-2022 10:01-0500 Body weight 110.[address] Bharat Coronado Work Phone: 5(811)391-723479 [place] [address] 03-26-2022 10:01-0500 Diastolic blood pressure 50 mm[Hg] Dr. Bharat Coronado Work Phone: 9(494)301-018679 [place] [address] 03-26-2022 10:01-0500 Heart rate 52 /min Dr. Bharat Coronado Work Phone: 8(531)563-478879 [place] [address] 03-26-2022 10:01-0500 Respiratory rate 18 /min Dr. Bharat Coronado Work Phone: 0(804)169-150679 [place] [address] 03-26-2022 10:01-0500 SaO2% (BldA) [Mass fraction] 94 % Dr. Bharat Coronado Work Phone: 4(399)007-003779 [place] [address] 03-26-2022 10:01-0500 Systolic blood pressure 113 mm[Hg] Dr. Bharat Coronado Work Phone: 4(645)134-485279 [place] [address] 03-26-2022 10:01-0500 Body mass index (BMI) [Ratio] 36.6 kg/m2 Dr. Bharat Coronado Work Phone: 3(203)699-954779 [place] [address] 03-26-2022 10:01-0500 Body weight 112.[address] Bharat Coronado Work Phone: 8(639)775-579679 [place] [address] 03-26-2022 10:01-0500 Diastolic blood pressure 60 mm[Hg] Dr. Bharat Coronado Work Phone: 4(780)366-420379 [place] [address] 03-26-2022 10:01-0500 Heart rate 66 /min Dr. Bharat Coronado Work Phone: 1(761)926-495579 [place] [address] 03-26-2022 10:01-0500 Respiratory rate 18 /min Dr. Bharat Coronado Work Phone: 5(952)314-913279 [place] [address] 03-26-2022 10:01-0500 SaO2% (BldA) [Mass fraction] 98 % Dr. Bharat Coronado Work Phone: 0(791)703-975079 [place] [address] 03-26-2022 10:01-0500 Systolic blood pressure 110 mm[Hg] Dr. Bharat Coronado Work Phone: 4(868)906-621579 [place] [address] 03-04-2022 13:05-0500 Body mass index (BMI) [Ratio] 36 kg/m2 Dr. Bharat Coronado Work Phone: 0(130)112-922432 [place] [address] 03-04-2022 13:05-0500 Body weight 110.[address] Bharat Coronado Work Phone: 6(462)771-564379 [place] [address] 03-04-2022 13:05-0500 Diastolic blood pressure 80 mm[Hg] Dr. Bharat Coronado Work Phone: 4(627)956-613179 [place] [address] 03-04-2022 13:05-0500 Heart rate 50 /min Dr. Bharat Coronado Work Phone: 6(174)487-597879 [place] [address] 03-04-2022 13:05-0500 Respiratory rate 18 /min Dr. Bharat Coronado Work Phone: 9(408)091-318079 [place] [address] 03-04-2022 13:05-0500 SaO2% (BldA) [Mass fraction] 99 % Dr. Bharat Coronado Work Phone: 7(373)172-480109 [place] [address] 03-04-2022 13:05-0500 Systolic blood pressure 155 mm[Hg] Dr. Bharat Coronado Work Phone: 9(791)836-574879 [place] [address] 12-21-2021 12:08-0400 Body mass index (BMI) [Ratio] 35.6 kg/m2 Dr. Bharat Coronado Work Phone: 5(699)731-311709 [place] [address] Work Phone: 12-21-2021 12:08-0400 Body weight 109.[address] Bharat Coronado Work Phone: 3(508)875-094909 [place] [address] Work Phone: 12-21-2021 12:08-0400 Diastolic blood pressure 55 mm[Hg] Dr. Bharat Coronado Work Phone: 7(077)359-117609 [place] [address] Work Phone: 12-21-2021 12:08-0400 Heart rate 44 /min Dr. Bharat Coronado Work Phone: 4(347)123-528309 [place] [address] Work Phone: 12-21-2021 12:08-0400 Respiratory rate 18 /min Dr. Bharat Coronado Work Phone: [facility] Work Phone: 12-21-2021 12:08-0400 Systolic blood pressure 102 mm[Hg] Dr. Bharat Coronado Work Phone: [facility] Work Phone: 12-15-2021 09:56-0400 Heart rate 66 /min Dr. Bharat Coronado Work Phone: [facility] Work Phone: 12-15-2021 09:52-0400 Body temperature 97.8 [degF] Dr. Bharat Coronado Work Phone: [facility] Work Phone: 12-15-2021 09:52-0400 Diastolic blood pressure 79 mm[Hg] Dr. Bharat Coronado Work Phone: [facility] Work Phone: 12-15-2021 09:52-0400 Respiratory rate 17 /min Dr. Bharat Coronado Work Phone: [facility] Work Phone: 12-15-2021 09:52-0400 SaO2% (BldA) [Mass fraction] 98 % Dr. Bharat Coronado Work Phone: [facility] Work Phone: 12-15-2021 09:52-0400 Systolic blood pressure 141 mm[Hg] Dr. Bharat Coronado Work Phone: [facility] Work Phone: 12-15-2021 05:55-0400 Body weight 106.[address] Bharat Coronado Work Phone: [facility] Work Phone: 12-14-2021 06:00-0400 Inhaled oxygen flow rate 2 L/min Dr. Bharat Coronado Work Phone: [facility] Work Phone: 12-13-2021 10:23-0400 Body height 175.[address] Bharat Coronado Work Phone: [facility] Work Phone: 12-11-2021 07:10-0400 Inhaled oxygen concentration 21 % Dr. Bharat Coronado Work Phone: [facility] Work Phone: 12-10-2021 15:50-0400 Body mass index (BMI) [Ratio] 37 kg/m2 Dr. Bharat Coronado Work Phone: [facility] Work Phone: 12-10-2021 14:07-0400 Body temperature 98 [degF] Dr. Bharat Coronado Work Phone: [facility] Work Phone: 12-10-2021 14:07-0400 Diastolic blood pressure 96 mm[Hg] Dr. Bharat Coronado Work Phone: [facility] Work Phone: 12-10-2021 14:07-0400 Heart rate 105 /min Dr. Bharat Coronado Work Phone: [facility] Work Phone: 12-10-2021 14:07-0400 Respiratory rate 24 /min Dr. Bharat Coronado Work Phone: [facility] Work Phone: 12-10-2021 14:07-0400 SaO2% (BldA) [Mass fraction] 96 % Dr. Bharat Coronado Work Phone: [facility] Work Phone: 12-10-2021 14:07-0400 Systolic blood pressure 120 mm[Hg] Dr. Bharat Coronado Work Phone: [facility] Work Phone: 12-10-2021 09:09-0400 Body height 175.[address] Bharat Coronado Work Phone: [facility] Work Phone: 12-10-2021 09:09-0400 Body mass index (BMI) [Ratio] 36.1 kg/m2 Dr. Bharat Coronado Work Phone: [facility] Work Phone: 12-10-2021 09:09-0400 Body weight 111.[address] Bharat Coronado Work Phone: [facility] Work Phone: 11-26-2021 08:29-0400 Body height 175.[address] Bharat Coronado Work Phone: [facility] Work Phone: 11-26-2021 08:29-0400 Body mass index (BMI) [Ratio] 36.3 kg/m2 Dr. Bharat Coronado Work Phone: [facility] Work Phone: 11-26-2021 08:29-0400 Body weight 111.[address] Bharat Coronado Work Phone: [facility] Work Phone: 11-26-2021 08:29-0400 Diastolic blood pressure 106 mm[Hg] Dr. Bharat Coronado Work Phone: [facility] Work Phone: 11-26-2021 08:29-0400 Heart rate 132 /min Dr. Bharat Coronado Work Phone: [facility] Work Phone: 11-26-2021 08:29-0400 Respiratory rate 18 /min Dr. Bharat Coronado Work Phone: [facility] Work Phone: 11-26-2021 08:29-0400 Systolic blood pressure 140 mm[Hg] Dr. Bharat Coronado Work Phone: [facility] Work Phone: 02-08-2021 14:52-0400 Body temperature 97.88 [degF] DR BJ MEMBRENO MD [facility] 02-08-2021 14:52-0400 Diastolic blood pressure 76 mm[Hg] DR BJ MEMBRENO MD [facility] 02-08-2021 14:52-0400 Heart rate 62 /min DR BJ MEMBRENO MD [facility] 02-08-2021 14:52-0400 Mean blood pressure 101 mm[Hg] DR BJ MEMBRENO MD [facility] 02-08-2021 14:52-0400 Respiratory rate 16 /min DR BJ MEMBRENO MD [facility] 02-08-2021 14:52-0400 Systolic blood pressure 150 mm[Hg] DR BJ MEMBRENO MD [facility] 02-08-2021 14:19-0400 Diastolic blood pressure 78 mm[Hg] DR BJ MEMBRENO MD [facility] 02-08-2021 14:19-0400 Mean blood pressure 97 mm[Hg] DR BJ MEMBRENO MD [facility] 02-08-2021 14:19-0400 Systolic blood pressure 136 mm[Hg] DR BJ MEMBRENO MD [facility] 02-08-2021 11:15-0400 Heart rate 60 /min DR BJ MEMBRENO MD [facility] 02-08-2021 10:52-0400 Body temperature 98.06 [degF] DR BJ MEMBRENO MD [facility] 02-08-2021 10:52-0400 Diastolic blood pressure 92 mm[Hg] DR BJ MEMBRENO MD [facility] 02-08-2021 10:52-0400 Heart rate 80 /min DR BJ MEMBRENO MD [facility] 02-08-2021 10:52-0400 Mean blood pressure 118 mm[Hg] DR BJ MEMBRENO MD [facility] 02-08-2021 10:52-0400 Reason For Taking VItal Signs DR BJ MEMBRENO MD [facility] 02-08-2021 10:52-0400 Respiratory rate 16 /min DR BJ MEMBRENO MD [facility] 02-08-2021 10:52-0400 Systolic blood pressure 169 mm[Hg] DR BJ MEMBRENO MD [facility] 02-08-2021 06:35-0400 Body temperature 98.06 [degF] DR BJ MEMBRENO MD [facility] 02-08-2021 06:35-0400 Heart rate 55 /min DR BJ MEMBRENO MD [facility] 02-08-2021 06:35-0400 Reason For Taking VItal Signs DR BJ MEMBRENO MD [facility] 02-08-2021 06:35-0400 Respiratory rate 16 /min DR BJ MEMBRENO MD [facility] 02-08-2021 04:14-0400 Heart rate 67 /min DR BJ MEMBRENO MD [facility] 02-08-2021 04:14-0400 Reason For Taking VItal Signs DR BJ MEMBRENO MD [address] [place] [address] 02-07-2021 22:49-0400 Heart rate 84 /min DR BJ MEMBRENO MD [address] [place] [address] 02-07-2021 16:01-0400 Heart rate 67 /min DR BJ MEMBRENO MD [address] 02-07-2021 11:17-0400 Heart rate 52 /min DR BJ MEMBRENO MD [facility] 02-07-2021 08:21-0400 Heart rate 56 /min DR BJ MEMBRENO MD [address] [place] [address] 02-05-2021 16:30-0400 Diastolic Blood Pressure NBP [address] BJ MEMBRENO MD [facility] 02-05-2021 16:30-0400 Mean blood pressure 102 mm[Hg] DR BJ MEMBRENO MD [facility] 02-05-2021 16:30-0400 Systolic Blood Pressure NBP [address] BJ MEMBRENO MD [facility] 02-05-2021 15:35-0400 Body temperature 98.24 [degF] DR BJ MEMBRENO MD [facility] 02-05-2021 15:35-0400 Diastolic blood pressure 63 mm[Hg] DR BJ MEMBRENO MD [facility] 02-05-2021 15:35-0400 Diastolic Blood Pressure NBP [address] BJ MEMBRENO MD [facility] 02-05-2021 15:35-0400 Mean blood pressure 91 mm[Hg] DR BJ MEMBRENO MD [facility] 02-05-2021 15:35-0400 Mean blood pressure 77 mm[Hg] DR BJ MEMBRENO MD [facility] 02-05-2021 15:35-0400 Systolic blood pressure 136 mm[Hg] DR BJ MEMBRENO MD [facility] 02-05-2021 15:35-0400 Systolic Blood Pressure NBP [address] BJ MEMBRENO MD [facility] 02-05-2021 14:57-0400 Body temperature 98.24 [degF] DR BJ MEMBRENO MD [facility] 02-05-2021 14:57-0400 Diastolic blood pressure 66 mm[Hg] DR BJ MEMBRENO MD [facility] 02-05-2021 14:57-0400 Diastolic Blood Pressure NBP [address] BJ MEMBRENO MD [facility] 02-05-2021 14:57-0400 Mean blood pressure 94 mm[Hg] DR BJ MEMBRENO MD [facility] 02-05-2021 14:57-0400 Mean blood pressure 84 mm[Hg] DR BJ MEMBRENO MD [facility] 02-05-2021 14:57-0400 Systolic blood pressure 130 mm[Hg] DR BJ MEMBRENO MD [facility] 02-05-2021 14:57-0400 Systolic Blood Pressure NBP [address] BJ MEMBRENO MD [facility] 02-05-2021 14:33-0400 Diastolic blood pressure 64 mm[Hg] DR BJ MEMBRENO MD [address] [place] [address] 02-05-2021 14:33-0400 Mean blood pressure 92 mm[Hg] DR BJ MEMBRENO MD [facility] 02-05-2021 14:33-0400 Systolic blood pressure 140 mm[Hg] DR BJ MEMBRENO MD [facility] 02-05-2021 14:18-0400 Body temperature 98.6 [degF] DR BJ MEMBRENO MD [facility] 02-05-2021 12:40-0400 Body temperature 96.06 [degF] DR BJ MEMBRENO MD [facility] 02-05-2021 12:35-0400 Body temperature 96.01 [degF] DR BJ MEMBRENO MD [facility] 02-05-2021 12:30-0400 Body temperature 95.97 [degF] DR BJ MEMBRENO MD [facility] 02-04-2021 20:42-0400 Body height [address] BJ MEMBRENO MD [facility] 02-04-2021 20:42-0400 Body weight 115.[address] BJ MEMBRENO MD [facility] 02-04-2021 20:42-0400 Body weight 37.84 kg/m2 DR BJ MEMBRENO MD [facility] 02-04-2021 15:24-0400 Body height [address] BJ MEMBRENO MD [address] [place] [address] 02-04-2021 15:24-0400 Body weight 115.[address] BJ MEMBRENO MD [facility] 02-04-2021 15:24-0400 Body weight 37.84 kg/m2 DR BJ MEMBRENO MD [facility] 02-03-2021 16:15-0400 Body height [address] BJ MEMBRENO MD [facility] 02-03-2021 16:15-0400 Body weight 115.[address] BJ MEMBRENO MD [facility] 03-31-2020 08:24-0500 Body height 177.8 cm Yuki Schuler LPN [facility] 03-31-2020 08:24-0500 Body mass index (BMI) [Ratio] 38.31 kg/m2 Yuki Zaugg [facility], [facility]. 03-31-2020 08:24-0500 Body surface area Derived from formula 2.36 m2 Yuki Schuler [facility] 03-31-2020 08:24-0500 Body weight 121.11 kg Yuki Schuler MANAGER CREATIVE [facility].; [place] [employer] [facility], [facility]. 03-31-2020 08:24-0500 Diastolic blood pressure 77 mm[Hg] Yuik Schuler [facility], [facility].; [place] [employer] [facility]. Comment on above: Patient Position: Si tting; Cuff Location: Left Arm; Cuff Size: Standard 03-31-2020 08:24-0500 Heart rate 58 /min Yuki Schuler [facility], [facility] [place] [employer] [facility], [facility] Comment on above: Pattern: Regular 03-31-2020 08:24-0500 Systolic blood pressure 130 mm[Hg] Yuki Schuler MANAGER CREATIVE [facility] [place] [employer] Inc[employer] Comment on above: Patient Position: Si tting; Cuff Location: Left Arm; Cuff Size: Standard 11-24-2019 09:40-0400 Body height 177.8 cm Floridalma Nelson MANAGER CREATIVE [facility], [facility].; [place] [employer] [facility], [facility] 11-24-2019 09:40-0400 Body mass index (BMI) [Ratio] 37.88 kg/m2 Floridalma Nelson MANAGER CREATIVE [facility] [place] [employer] [facility], [facility]. 11-24-2019 09:40-0400 Body surface area Derived from formula 2.35 m2 Floridalma Nelson MANAGER CREATIVE [facility], [facility].; [place] [employer] [facility]. 11-24-2019 09:40-0400 Body weight 119.75 kg Floridalma Nelson [facility], [facility].; [place] [employer] [facility]. 11-24-2019 09:40-0400 Diastolic blood pressure 86 mm[Hg] Floridalma Nelson MANAGER CREATIVE [facility] [place] [employer] Inc. Comment on above: Patient Position: Si tting; Cuff Location: Left Arm; Cuff Size: Large 11-24-2019 09:40-0400 Heart rate 67 /min Floridalma Nelson [facility] [employer]. Comment on above: Pattern: Regular 11-24-2019 09:40-0400 Systolic blood pressure 129 mm[Hg] Floridalma Nelson [facility] [employer], [employer].; [employer], [employer]. Comment on above: Patient Position: Si tting; Cuff Location: Left Arm; Cuff Size: Large 02-08-2019 14:15-0400 Body height 177.8 cm PetLoveilee Wantr [facility] [employer]. 02-08-2019 14:15-0400 Body mass index (BMI) [Ratio] 39.03 kg/m2 PetLoveilee L [employer] [facility] [employer], [employer]. 02-08-2019 14:15-0400 Body surface area Derived from formula 2.38 m2 [employer] [facility] [employer], [employer]. 02-08-2019 14:15-0400 Body temperature 98.8 [degF] [employer] [facility] [employer], [employer].; [employer], [employer]. Comment on above: Method: Tympanic 02-08-2019 14:15-0400 Body weight 123.38 kg PetLovepawane Wantr [facility] [employer], [employer].; [employer]. 08-30-2016 08:36-0400 BMI (Body Mass Index) 38.31 kg/m2 [facility] Work Phone: 08-30-2016 08:36-0400 Body weight 121.11 kg [facility] Work Phone: 08-30-2016 08:36-0400 BP Diastolic 72 mm[Hg] [employer] [facility] Work Phone: 08-30-2016 08:36-0400 BP Systolic 130 mm[Hg] [facility] Work Phone: 08-30-2016 08:36-0400 Height 177.8 cm [facility] Work Phone: 08-30-2016 08:36-0400 Pulse (Heart Rate) 60 /min Cyn [facility] Work Phone: 08-30-2016 08:36-0400 Respiratory Rate 18 /min Cyn [employer] [facility] Work Phone: 08-30-2016 08:36-0400 Weight 121.11 kg Cyn [employer] Work Phone: 03-18-2016 08:39-0500 Body height 177.8 cm Floridalma Nelson [facility], [employer]. 03-18-2016 08:39-0500 Body mass index (BMI) [Ratio] 38.74 kg/m2 Floridalma Nelson [facility] [employer] [facility], [employer].; [employer], [employer]. 03-18-2016 08:39-0500 Body surface area Derived from formula 2.37 m2 [facility] Omar [facility], [employer]. 03-18-2016 08:39-0500 Body temperature 97.6 [degF] AltheaSuyapa Nelson [facility], [employer]. Comment on above: Method: Tympanic 03-18-2016 08:39-0500 Body weight 122.47 kg Floridalma Nelson [facility], [employer]. 03-18-2016 08:39-0500 Diastolic blood pressure 70 mm[Hg] AltheaSuyapa Nelson [facility], [employer]. Comment on above: Patient Position: Si tting; Cuff Location: Left Arm; Cuff Size: Large 03-18-2016 08:39-0500 Heart rate 60 /min AltheaSuyapa Nelson [facility], [employer]. Comment on above: Pattern: Regular 03-18-2016 08:39-0500 Systolic blood pressure 126 mm[Hg] AltheaSuyapa Nelson [facility], [employer]. Comment on above: Patient Position: Si tting; Cuff Location: Left Arm; Cuff Size: Large 08-08-2015 08:54-0400 BMI (Body Mass Index) 38.62 kg/m2 [facility] Work Phone: 08-08-2015 08:54-0400 BP Diastolic 50 mm[Hg] [facility] Work Phone: 08-08-2015 08:54-0400 BP Systolic 104 mm[Hg] [facility] Work Phone: 08-08-2015 08:54-0400 BSA (Body Surface Area) 2.37 m2 [facility] Work Phone: 08-08-2015 08:54-0400 Pulse (Heart Rate) 60 /min [facility] Work Phone: 08-08-2015 08:54-0400 Respiratory Rate 20 /min [facility] Work Phone: 08-08-2015 08:54-0400 Weight 122.11 kg [facility] Work Phone: 08-08-2014 08:44-0400 Body weight 118.84 kg Mary Lou Melton LPN [facility], [facility]. 08-08-2014 08:44-0400 Diastolic blood pressure 67 mm[Hg] Mary Lou Melton LPN [facility], [facility]. Comment on above: Patient Position: Si tting; Cuff Location: Left Arm; Cuff Size: Standard 08-08-2014 08:44-0400 Heart rate 59 /min Mary Lou Melton LPN [facility], [facility]. Comment on above: Pattern: Regular 08-08-2014 08:44-0400 Systolic blood pressure 125 mm[Hg] Mary Lou Melton LPN [facility], [facility]. Comment on above: Patient Position: Si tting; Cuff Location: Left Arm; Cuff Size: Standard 02-02-2013 08:00-0400 Body height 177.8 cm John Avalos MD Work Phone: [employer]; [employer]. 02-02-2013 08:00-0400 Body mass index (BMI) [Ratio] 37.31 kg/m2 John Avalos MD Work Phone: [employer]; [employer]. 02-02-2013 08:00-0400 Body surface area Derived from formula 2.33 m2 John Avalos MD Work Phone: [employer]; [employer]. 02-02-2013 08:00-0400 Body weight 117.94 kg John Avalos MD Work Phone: [employer].; [employer]. 02-02-2013 08:00-0400 Diastolic blood pressure 81 mm[Hg] John Avalos MD Work Phone: [employer]; [employer]. Comment on above: Patient Position: Si tting; Cuff Location: Right Arm; Cuff Size: Large 02-02-2013 08:00-0400 Heart rate 66 /min John Avalos MD Work Phone: [employer]; [employer]. Comment on above: Pattern: Regular 02-02-2013 08:00-0400 Systolic blood pressure 155 mm[Hg] John Avalos MD Work Phone: [employer]; [employer]. Comment on above: Patient Position: Si tting; Cuff Location: Right Arm; Cuff Size: Large 12-30-2011 11:21-0400 Body height 177.8 cm John Avalos MD Work Phone: [employer]; [employer]. 12-30-2011 11:21-0400 Body mass index (BMI) [Ratio] 38.31 kg/m2 John Avalos MD Work Phone: [employer].; [employer] 12-30-2011 11:21-0400 Body surface area Derived from formula 2.36 m2 John Avalos MD Work Phone: [employer]. 12-30-2011 11:21-0400 Body weight 121.11 kg John Avalos MD Work Phone: [employer]. 12-30-2011 11:21-0400 Diastolic blood pressure 82 mm[Hg] John Avalos MD Work Phone: [employer]. Comment on above: Patient Position: Si tting; Cuff Location: Right Arm; Cuff Size: Large 12-30-2011 11:21-0400 Heart rate 56 /min John Avalos MD Work Phone: [employer]. Comment on above: Pattern: Regular 12-30-2011 11:21-0400 Systolic blood pressure 127 mm[Hg] John Avalos MD Work Phone: [employer]. Comment on above: Patient Position: Si tting; Cuff Location: Right Arm; Cuff Size: Large 04-09-2011 11:33-0500 Body weight 124.29 kg Mary Lou Melton LPN [employer]. 04-09-2011 11:33-0500 Diastolic blood pressure 74 mm[Hg] Mary Lou Melton LPN [employer]. Comment on above: Patient Position: Si tting; Cuff Location: Left Arm; Cuff Size: Standard 04-09-2011 11:33-0500 Heart rate 58 /min Mary Lou Melton LPN [employer]. Comment on above: Pattern: Regular 04-09-2011 11:33-0500 Systolic blood pressure 120 mm[Hg] Mary Lou Melton LPN [employer]. Comment on above: Patient Position: Si tting; Cuff Location: Left Arm; Cuff Size: Standard 03-26-2011 08:44-0500 Height 177.8 cm Ghada Kilner, RN [facility] Work Phone: 03-25-2011 11:53-0500 Body weight 124.74 kg Mary Lou E Geronimo [facility] [employer], [employer]. 03-25-2011 11:53-0500 Diastolic blood pressure 81 mm[Hg] Mary Lou Melton [facility] [employer]. Comment on above: Patient Position: Si tting; Cuff Location: Left Arm; Cuff Size: Standard 03-25-2011 11:53-0500 Heart rate 61 /min Mary Lou Melton [facility] [employer], [employer]. Comment on above: Pattern: Regular 03-25-2011 11:53-0500 Systolic blood pressure 132 mm[Hg] Mary Lou Melton [facility] [employer], [employer]. Comment on above: Patient Position: Si tting; Cuff Location: Left Arm; Cuff Size: Standard 12-05-2010 10:34-0400 Body height 177.8 cm Floridalma Dale Udall [facility] [employer], [employer]. 12-05-2010 10:34-0400 Body mass index (BMI) [Ratio] 38.31 kg/m2 [facility] [employer], [employer]. 12-05-2010 10:34-0400 Body surface area Derived from formula 2.36 m2 [facility] Udall [facility] [employer], [employer]. 12-05-2010 10:34-0400 Body temperature 98.7 [degF] [facility] Omar [facility], [employer].; [employer], [employer]. Comment on above: Method: Tympanic 12-05-2010 10:34-0400 Body weight 121.11 kg Althea Udall [facility], [facility].; [employer], [employer]. 12-05-2010 10:34-0400 Diastolic blood pressure 74 mm[Hg] Althea Udall [facility], [employer]. Comment on above: Patient Position: Si tting; Cuff Location: Left Arm; Cuff Size: Large 12-05-2010 10:34-0400 Heart rate 72 /min Floridalma Nelson [facility], [facility].; [facility] [employer]. Comment on above: Pattern: Regular 12-05-2010 10:34-0400 Inhaled oxygen concentration 21 % Floridalma Nelson [facility], [facility].; [facility] Comment on above: Room air 12-05-2010 10:34-0400 SaO2% (BldA) [Mass fraction] 99 % Floridalma Nelson [facility], [employer]. 12-05-2010 10:34-0400 Systolic blood pressure 125 mm[Hg] Floridalma Nelson [facility].; [facility], [employer]. Comment on above: Patient Position: Si tting; Cuff Location: Left Arm; Cuff Size: Large NEGATED: Highlighted [id number] 08:23-0500 BMI (Body Mass Index) 39.87 kg/m2 Stacey Overton AT [facility] Work Phone: NEGATED: Highlighted [id number] 08:23-0500 Body weight 122.02 kg Stacey Overton AT [facility] Work Phone: NEGATED: Highlighted [id number] 08:23-0500 Body weight 122 kg Stacey Overton AT [facility] Work Phone: NEGATED: Highlighted [id number] 08:23-0500 Heart rate 1+ Stacey Overton AT [facility] Work Phone: NEGATED: Highlighted [id number] 08:23-0500 Height 175.26 cm Stacey Overton AT [facility] Work Phone: NEGATED: Highlighted [id number] 08:23-0500 Height 175 cm Stacey Overton AT [facility] Work Phone: Encounters Encounter Date Encounter Type Care Provider Facility Start: 02-02-2025 ambulatory Michael Marie Facility:[facility] Start: 01-24-2025 End: 01-24-2025 ambulatory [facility] Start: 01-13-2025 ambulatory [facility] Start: 01-07-2025 End: 01-07-[address] Bharat Coronado MD Work Phone: -[facility] Start: 01-07-2025 End: 01-07-[address] Mina Enriquez MD -[facility] Work Phone: Start: 12-10-2024 End: 12-14-2024 Telephone encounter Nandini Flores PA-C Work Phone: [facility] Comment on above: Results Start: 12-09-2024 End: 12-09-2024 Patient encounter procedure Nandini Flores PA-C Work Phone: [facility] Comment on above: Type 2 diabetes helen itus without complication, without long- term current use of insulin (HCC) (Primary Dx); Hypogonadism in male Start: 12-09-2024 End: 12-09-2024 ambulatory NANDINI FLORES Facility:[facility] Start: 11-24-2024 End: 11-24-2024 Patient encounter procedure Rosaura CARTER -[facility] Work Phone: Start: 11-24-2024 End: 11-24-[address] Bharat Coronado MD Work Phone: -[facility] Start: 11-22-2024 End: 11-22-2024 Patient encounter procedure Columba JEREZ -[facility] Work Phone: Start: 11-22-2024 End: 11-22-[address] Bharat Coronado MD Work Phone: -[facility] Start: 11-18-2024 End: 11-18-2024 ambulatory NANDINIASIA FLORES Facility:[facility] Start: 10-20-2024 End: 10-20-[address] Bharat Coronado MD Work Phone: [facility] Start: 10-20-2024 End: 10-20-[address] Mina Enriquez MD [facility] Work Phone: Start: 10-20-2024 End: 10-20-2024 Telephone encounter Zak Mendoza MD Work Phone: [facility] Comment on above: Orders Start: 10-12-2024 End: 2024 ambulatory ZAK MENDOZA Facility:[facility] Start: 10-07-2024 End: 10-07-[address] Bharat Coronado MD Work Phone: [facility] Start: 10-07-2024 End: 10-07-[address] Mina Enriquez MD -[facility] Work Phone: Start: 09-27-2024 End: 10-26-2024 Telephone encounter Davonte Augustin APRN.CNP Work Phone: [facility] Comment on above: Patient Question Start: 09-23-2024 End: 10-06-2024 Telephone encounter Radha Hughes MD Work Phone: [facility] Comment on above: Patient Update Start: 09-22-2024 End: 09-22-2024 Telephone encounter Ag Card Work Phone: [facility] Comment on above: Preparations For Pro cedures Start: 09-21-2024 End: 09-21-2024 Telephone encounter Radha Hughes MD Work Phone: [facility] Comment on above: Patient Update; Field Appraiser - Other Start: 09-20-2024 End: 09-20-2024 Emergency department patient visit Dr. Bharat Coronado MD Work Phone: -Emergency Department Work Phone: Start: 09-14-2024 End: 09-14-2024 Nursing evaluation of patient and report Mi Nurse Work Phone: [facility] Comment on above: Hypogonadism in male (Primary Dx) Start: 09-14-2024 End: 09-14-2024 ambulatory BHARAT CORONADO Facility:[facility] Start: 08-25-2024 End: 08-25-2024 Telephone encounter Bharat Coronado MD Work Phone: [facility] Comment on above: Appointment Start: 08-17-2024 End: 08-25-2024 Telephone encounter Radha Hughes MD Work Phone: [facility] Comment on above: Results Start: 08-16-2024 End: 08-16-2024 Admission to same day surgery center Dr. Mina Enriquez MD -[employer] Mach[employer] Repairer/Special Procedures Work Phone: Start: 08-16-2024 End: 08-16-2024 ambulatory Bharat Coronado Facility:[facility] Start: 07-29-2024 ambulatory Bharat Coronado Facilit y:[facility] Start: 07-21-2024 End: 07-21-2024 Patient encounter procedure Columba Burkett HUSBANDRY PERSON-C -[facility] Work Phone: Start: 07-21-2024 End: 07-21-2024 ambulatory Columba Burkett HUSBANDRY PERSON Facility:[facility] Start: 07-20-2024 End: 07-20-[address] Mina Enriquez MD -[facility] Work Phone: Start: 07-20-2024 End: 07-20-2024 ambulatory Bharat Coronado Facility:[facility] Start: 07-15-2024 End: 07-15-2024 Emergency department patient visit Dr. Bharat Coronado MD Work Phone: -Emergency Department Work Phone: Start: 07-09-2024 End: 07-09-2024 ambulatory Bharat Coronado Facility:[facility] Start: 07-09-2024 End: 07-09-[address] Mina Enriquez MD -[facility] Work Phone: Start: 07-08-2024 End: 07-09-2024 Telephone encounter Bharat Coronado MD Work Phone: [facility] Comment on above: Problem with syringe Start: 07-07-2024 End: 07-13-2024 Telephone encounter Bharat Coronado MD Work Phone: [facility] Comment on above: Insurance Authorizat ion Start: 07-06-2024 End: 07-06-2024 Telephone encounter Davonte Ardonlucas KOROMA Work Phone: [facility] Start: 07-05-2024 End: 07-08-2024 Telephone encounter Bharat Coronado MD Work Phone: [facility] Comment on above: Medication Problem Start: 07-04-2024 End: 07-04-2024 Emergency department patient visit Dr. Bharat Coronado MD Work Phone: -Emergency Department Work Phone: Start: 07-01-2024 ambulatory Gregory Coon NP Facility :[facility] Start: 07-01-2024 Non-patient / Non-visit Dr. Marin ROJAS -[facility] Start: 07-01-2024 End: 07-01-[address] Bharat Coronado MD Work Phone: [facility] Work Phone: Start: 07-01-2024 End: 07-01-2024 Patient encounter procedure Gregory Coon HUSBANDRY PERSON-C -Cardiovascular Services Work Phone: Start: 07-01-2024 End: 07-01-2024 ambulatory Gregory Coon HUSBANDRY PERSON Facility:[facility] Start: 06-21-2024 End: 06-21-2024 Refill Bharat Coronado MD Work Phone: [facility] Comment on above: Refill Request Start: 06-02-2024 End: 06-02-2024 Patient encounter procedure Gregory Coon HUSBANDRY PERSON-C -[facility] Work Phone: Start: 06-02-2024 End: 06-02-2024 ambulatory Gregory Coon HUSBANDRY PERSON Facility:[facility] Start: 06-01-2024 ambulatory Areli Frankie Facility[facility] Start: 06-01-2024 Non-patient / Non-visit Dr. Areli lowry MD -[facility] Start: 06-01-2024 End: 06-01-2024 Telephone encounter Davonte Augustin APRN.MERCHANDISE [employer]OW TEAM LEADER Work Phone: [facility] Comment on above: Patient Update Start: 06-01-2024 End: 06-01-2024 Patient encounter procedure Davonte Augustin APRN.MERCHANDISE FLOW TEAM LEADER Work Phone: [facility] Comment on above: Persistent atrial fi brillation (HCC) (Primary Dx); Presence of cardiac pacemaker; Palpitations; History of coronary artery bypass surgery; Essential (primary) hypertension; Chronic congestive heart failure, unspecified heart failure type (HCC); At risk for stroke; Obesity, Class II, BMI 35-39.9; Swelling of lower extremity Start: 06-01-2024 End: 06-01-2024 ambulatory DAVONTE AUGUSTIN Facility:[facility] Start: 06-01-2024 End: 06-01-2024 ambulatory Gregory Coon NP Facility:[facility] Start: 05-10-2024 Follow-up status Dr. Bharat berg MD Work Phone: [facility] Start: 05-10-2024 End: 05-10-2024 Emergency department patient visit Dr. Terrance Sanders MD -Emergency Department Work Phone: Start: 05-10-2024 End: 05-10-[address] Mina Enriquez MD -[facility] Work Phone: Start: 05-10-2024 End: 05-10-2024 ambulatory Mina Enriquez Facility:[facility] Start: 04-16-2024 End: 04-16-2024 ambulatory Mina Enriquez Facility:[facility] Start: 04-16-2024 End: 04-16-[address] Mina Enriquez MD -[facility] Work Phone: Start: 04-08-2024 End: 04-08-2024 ambulatory BHARAT CORONADO Facility:[facility] Start: 04-08-2024 End: 04-08-2024 Patient encounter procedure Nino Das 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.MERCHANDISE FLOW TEAM LEADER Work Phone: [facility] Comment on above: Bacterial sinusitis (Primary Dx) Start: 03-30-2024 End: 03-30-2024 Emergency department patient visit Dr. Bonifacio Olivia MD -Emergency Department Work Phone: Start: 03-29-2024 End: 03-29-2024 ambulatory Mina Enriquez Facility:[facility] Start: 03-29-2024 End: 03-29-[address] Mina Enriquez MD -[facility] Work Phone: Start: 03-12-2024 End: 03-12-2024 Patient encounter procedure [facility] Department Start: 03-02-2024 ambulatory Wilda Anderson HUSBANDRY PERSON Facili ty:[facility] Start: 03-02-2024 End: 12-10-2024 Telephone encounter Radha Hughes MD Work Phone: [facility] Comment on above: Results Start: 03-02-2024 ambulatory Mina Mina Facility[facility] Start: 03-02-2024 End: 03-02-2024 ambulatory Radha Hughes Facility:[facility] Start: 02-20-2024 End: 02-20-2024 Patient encounter procedure Suzi House APRN.MERCHANDISE FLOW TEAM LEADER Work Phone: [facility] Comment on above: Persistent atrial fi brillation (HCC) (Primary Dx); Status post catheter ablation of atrial fibrillation; Bradycardia; Palpitations; Tachy-bradley syndrome (HCC); Encounter for care of pacemaker; prison (current) use of anticoagulants; At risk for stroke Start: 02-20-2024 End: 02-20-2024 ambulatory SUZI HOUSE Facility:[facility] Start: 02-18-2024 ambulatory Gregory Coon NP Facility :[facility] Start: 02-16-2024 End: 02-16-2024 Office outpatient visit 25 minutes Wily Mcghee APRN.MERCHANDISE FLOW TEAM LEADER Work Phone: [facility] Comment on above: Hypogonadism in male (Primary Dx); Atrial fibrillation, unspecified type (HCC); Essential (primary) hypertension; Screening for colon cancer Start: 02-16-2024 End: 02-16-2024 ambulatory WILY MCGHEE Facility:[facility] Start: 02-16-2024 End: 02-16-2024 ambulatory Radha Hughes Facility:[facility] Start: 02-10-2024 End: 02-10-2024 Telephone encounter Vinay Singh MD [facility] Comment on above: Fabric Transition of Care Start: 02-06-2024 End: 02-06-2024 Telephone encounter Ayden CURRY Comment on above: Transition Of Care Start: 02-02-2024 End: 02-02-2024 Telephone encounter Bharat Coronado MD Work Phone: [address] [place] [address] Comment on above: Transition Of Care Start: 01-30-2024 End: 01-30-2024 Refill Bharat Coronado MD Work Phone: [facility] Comment on above: Refill Request Start: 01-26-2024 Evaluation and manag ement of [facility] Facility:[facility] Start: 12-23-2023 End: 12-23-2023 Telephone encounter Bharat Coronado MD Work Phone: [facility] Comment on above: Forms Start: 11-28-2023 Telephone encounter Radha mann MD Work Phone: [facility] Start: 11-18-2023 [facility] [place] Start: 11-14-2023 Telephone encounter Davonte castro APRN.CNP Work Phone: [facility] Comment on above: Results Start: 10-29-2023 End: 10-29-2023 Emergency department patient visit BHARAT CORONADO [facility] Start: 10-24-2023 Telephone encounter Radha mann MD Work Phone: [facility] Comment on above: Preparations For Pro cedures Start: 10-15-2023 Telephone encounter Radha mann MD Work Phone: [facility] Comment on above: Patient Question Start: 09-17-2023 Refill Bharat chan MD Work Phone: [facility] Comment on above: Refill Request Start: 09-12-2023 End: 09-12-2023 Patient encounter procedure Radha Hughes MD Work Phone: [facility] Comment on above: Tachy-bradlye syndrome (HCC) (Primary Dx); Bradycardia; Persistent atrial fibrillation (HCC); Atrial fibrillation with rapid ventricular response (HCC); Presence of cardiac pacemaker; 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 Bharat berg MD Work Phone: [facility] Start: 08-19-2023 Non-patient / Non-visit Dr. Esther Coronado Work Phone: [facility] Start: 08-19-2023 End: 08-20-2023 Evaluation and management of inpatient Dr. Bharat Coronado Work Phone: [facility] Work Phone: Start: 08-19-2023 End: 08-20-[address] Bharat Coronado Work Phone: [facility] Work Phone: Start: 08-14-2023 End: 08-14-2023 Patient encounter procedure Suly Bah APRN.MERCHANDISE FLOW TEAM LEADER Work Phone: [facility] Comment on above: Bacterial pneumonia (Primary Dx) Start: 08-12-2023 End: 08-12-2023 Patient encounter procedure Santiago Aviles APRN.MERCHANDISE FLOW TEAM LEADER Work Phone: [facility] Comment on above: Community acquired p neumonia, unspecified laterality (Primary Dx) Start: 08-07-2023 Refill Suly Bah 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.MERCHANDISE FLOW TEAM LEADER Work Phone: [facility] Comment on above: Med Change Request Start: 08-07-2023 Telephone encounter Suly Simpson marisa 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.MERCHANDISE FLOW TEAM LEADER Work Phone: [facility] Comment on above: Results (Chest Xray ) Medication Problem Start: 08-07-2023 End: 08-07-2023 Subsequent hospital visit by physician Xr [facility] [place] Work Phone: Radiology Comment on above: Sinobronchitis [J32. 9, J40] Start: 08-07-2023 End: 08-07-2023 Patient encounter procedure Suly Bah 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.MERCHANDISE FLOW TEAM LEADER Work Phone: [facility] [place] Comment on above: Sinobronchitis (Prim claude Dx); Acute cough Start: 08-06-2023 Chart abstracting Margarette TORRES [facility] Start: 08-06-2023 End: 08-06-[address] Bharat Coronado Work Phone: [facility] Work Phone: Start: 08-06-2023 End: 08-06-[address] Bharat Coronado Work Phone: [facility]Laboratory Work Phone: Start: 08-02-2023 Non-patient / Non-visit Dr. Esther Coronado Work Phone: [facility] Work Phone: Start: 08-01-2023 Non-patient / Non-visit Dr. Esther Coronado Work Phone: [facility] Start: 08-01-2023 Non-patient / Non-visit Dr. Esther Coronado Work Phone: [facility] Work Phone: Start: 07-31-2023 Non-patient / Non-visit Dr. Esther Coronado Work Phone: [facility] Work Phone: Start: 07-30-2023 End: 08-02-2023 Evaluation and management of inpatient Dr. Bharat Coronado Work Phone: [facility] Work Phone: Start: 07-28-2023 End: 07-28-2023 Patient encounter procedure Donavan Ludwig MD Work Phone: [facility] Comment on above: Influenza-like illne ss (Primary Dx); Acute non-recurrent sinusitis, unspecified location Start: 07-22-2023 End: 07-22-[address] Bharat Coronado Work Phone: [facility] Work Phone: Start: 07-11-2023 End: 07-11-[address] Bharat Coronado Work Phone: [facility] Work Phone: Start: 06-30-2023 Non-patient / Non-visit Dr. Esther Coronado Work Phone: [facility] Start: 06-30-2023 End: 06-30-[address] Bharat Coronado Work Phone: [facility] Work Phone: Start: 06-30-2023 End: 06-30-[address] Bharat Coronado Work Phone: [facility] Work Phone: Start: 06-29-2023 End: 06-29-[address] Bharat Coronado Work Phone: [facility] Work Phone: Start: 06-26-2023 End: 06-26-[address] Bharat Coronado Work Phone: [facility] Work Phone: Start: 06-26-2023 End: 06-26-[address] Bharat Coronado Work Phone: [facility] Work Phone: Start: 06-06-2023 End: 06-06-[address] Bharat Coronado Work Phone: [facility] Work Phone: Start: 06-06-2023 End: 06-06-[address] Bharat Coronado Work Phone: [facility] Work Phone: Start: 05-31-2023 End: 05-31-[address] Bharat Coronado Work Phone: [facility] Work Phone: Start: 04-25-2023 End: 04-25-2023 Subsequent hospital visit by physician [facility] Work Phone: Radiology Comment on above: Kidney stone [N20.0] Start: 04-11-2023 End: 04-11-[address] Bharat Coronado Work Phone: [facility] [facility] Work Phone: Start: 03-24-2023 Telephone encounter Vinny Davis MD Work Phone: [facility] Comment on above: Appointment Start: 03-21-2023 Telephone encounter Michelle Perez APRN.CNP Work Phone: [facility] Comment on above: Anesthesia Consult ( Reviewed case with anesthesia /Request for cardiac optimization for upcoming elective procedure on 03/24/23/ECG done in [facility] on 03/18/23 /Diagnosis: SINUS TACHYCARDIA WITH PREMATURE ATRIAL COMPLEXES /RSR' OR QR PATTERN IN V1 SUGGESTS RIGHT VENTRICULAR CONDUCTION DELAY /T WAVE ABNORMALITY, CONSIDER INFERIOR ISCHEMIA /ABNORMAL ECG /NO PREVIOUS ECGS AVAILABLE /Confirmed by MD MENDEZ DAVID ([id number]) on 03/19/2023 9:26:50 AM ) Start: 03-18-2023 End: 03-18-2023 Preprocedural examination done Bharat Coronado MD Work Phone: [facility] Work Phone: Start: 03-18-2023 End: 03-18-2023 Refill Bharat Coronado MD Work Phone: [facility] Comment on above: Refill Request Preop examination; Renal calculus, right; Presence of cardiac pacemaker; ALICIA treated with BiPAP; Essential (primary) hypertension; Atrial fibrillation, unspecified type (HCC); Chronic congestive heart failure, unspecified heart failure type (HCC); Coronary artery disease involving coronary bypass graft of rampart heart, unspecified whether angina present; Mixed hyperlipidemia; History of coronary artery bypass surgery Forms ([facility] Enrollment Form) Start: 03-15-2023 End: 03-15-[address] [facility]: Start: 03-10-2023 End: 03-10-2023 Patient encounter procedure Vinny Davis MD Work Phone: Urology Comment on above: Kidney stone (Primar y Dx) Start: 03-07-2023 E-mail encounter fro m caregiver Vinny Davis Jr., MD Work Phone: [employer] Start: 03-07-2023 Patient encounter procedure Vinny Davis MD Work Phone: [facility] Comment on above: upcoming appointment Start: 02-19-2023 Telephone encounter Yasmani marte PA-C Work Phone: Urology Comment on above: Results Start: 02-19-2023 End: 02-19-[address] Bharat Coronado Work Phone: [facility] [facility] Work Phone: Start: 01-31-2023 Telephone encounter Yasmani Kenney marte PA-C Work Phone: [facility] Comment on above: Appointment Start: 12-30-2022 End: 12-30-[address] Bharat Coronado Work Phone: [facility] Work Phone: Start: 12-30-2022 End: 12-30-[address] Bharat Coronado Work Phone: [facility] Work Phone: Start: 12-27-2022 End: 12-27-2022 Office outpatient visit 15 minutes Wily Mcghee APRN.CNP Work Phone: [facility] Comment on above: Blood in semen (Prim claude Dx); Recurrent UTI (urinary tract infection) Start: 12-02-2022 Telephone encounter Bharat nair MD Work Phone: [facility] [place] Comment on above: Results Start: 11-28-2022 End: 11-28-2022 Patient encounter procedure Bharat Coronado MD Work Phone: [facility] [place] Comment on above: Blood in semen (Prim claude Dx); Coronary artery disease involving rampart heart, unspecified vessel or lesion type, unspecified whether angina present; Hypogonadism in male Start: 11-27-2022 ambulatory Bharat chan MD Work Phone: [facility] [place] Comment on above: Penis/Scrotum Proble m Start: 10-29-2022 End: 10-29-2022 Patient encounter procedure Bharat Coronado MD Work Phone: [facility] Comment on above: Wellness examination (Primary Dx); Hypogonadism in male; Lower leg edema; Sick sinus syndrome (HCC); Atrial fibrillation, unspecified type (HCC); Coronary artery disease involving rampart heart, unspecified vessel or lesion type, unspecified whether angina present; Cough, unspecified type Start: 10-29-2022 End: 10-29-2022 Patient encounter status Bharat Coronado MD Work Phone: [facility] Start: 10-02-2022 End: 10-02-[address] Bharat Coronado Work Phone: [facility] Work Phone: Start: 09-23-2022 End: 09-23-[address] Bharat Coronado Work Phone: [facility] Work Phone: Start: 07-30-2022 End: 07-30-[address] Bharat Coronado Work Phone: [facility] Work Phone: Start: 07-30-2022 End: 07-30-[address] Bharat Coronado Work Phone: [facility] Start: 06-17-2022 End: 06-17-[address] Bharat Coronado Work Phone: [facility] Start: 05-20-2022 End: 05-20-[address] Bharat Coronado Work Phone: [facility] Start: 05-14-2022 End: 05-14-[address] Bharat Coronado Work Phone: [facility] Start: 05-11-2022 Non-patient / Non-visit Dr. Esther Coronado Work Phone: [facility] Start: 05-10-2022 End: 05-11-2022 Evaluation and management of inpatient Dr. Bharat Coronado Work Phone: [facility] Start: 05-10-2022 End: 05-11-[address] Bharat Coronado Work Phone: [facility] Work Phone: Start: 05-02-2022 End: 05-02-[address] Bharat Coronado Work Phone: [facility] Work Phone: Start: 05-02-2022 End: 05-02-[address] Bharat Coronado Work Phone: [facility] Start: 05-02-2022 End: 05-02-[address] Bharat Coronado Work Phone: [facility] Start: 04-24-2022 End: 04-24-[address] Bharat Coronado Work Phone: [facility] Work Phone: Start: 04-24-2022 End: 04-24-[address] [facility] Coronado [facility] Start: 04-17-2022 End: 04-17-[address] Bharat Coronado Work Phone: [facility] Start: 04-01-2022 End: 04-01-[address] Bharat Coronado Work Phone: [facility] Work Phone: Start: 04-01-2022 End: 04-01-[address] [facility]har[facility] Coronado [facility] Start: 03-26-2022 End: 03-26-[address] Bharat Coronado Work Phone: [facility] Start: 03-22-2022 Refill Bharat chan MD Work Phone: [facility] Comment on above: Refill Request Start: 03-04-2022 End: 03-04-[address] Bharat Coronado Work Phone: [facility] Start: 12-25-2021 Non-patient / Non-visit Dr. Esther Coronado Work Phone: [facility] Start: 12-21-2021 End: 12-21-2021 Telephone follow-up John Avalos MD Work Phone: [facility] Start: 12-21-2021 End: 12-21-[address] Bharat Coronado Work Phone: [facility] Start: 12-15-2021 Non-patient / Non-visit Dr. Esther Coronado Work Phone: [facility] Start: 12-14-2021 Non-patient / Non-visit Dr. Esther Coronado Work Phone: [facility] Start: 12-14-2021 Non-patient / Non-visit Dr. Esther Coronado Work Phone: [facility] Start: 12-13-2021 Non-patient / Non-visit Dr. Esther Coronado Work Phone: [facility] Start: 12-13-2021 Non-patient / Non-visit Dr. Esther Coronado Work Phone: [facility] Start: 12-12-2021 Non-patient / Non-visit Dr. Esther Coronado Work Phone: [facility] Start: 12-11-2021 Non-patient / Non-visit Dr. Esther Coronado Work Phone: [facility] Start: 12-11-2021 Non-patient / Non-visit Dr. Esther Coronado Work Phone: [facility] Start: 12-10-2021 Non-patient / Non-visit Dr. Esther Coronado Work Phone: [facility] Start: 12-10-2021 End: 12-15-2021 Evaluation and management of inpatient Dr. Bharat Coronado Work Phone: [facility] Start: 12-10-2021 Non-patient / Non-visit Dr. Esther Coronado Work Phone: [facility] Start: 12-03-2021 End: 12-03-[address] Bharat Coronado Work Phone: [facility] Work Phone: Start: 12-03-2021 End: 12-03-[address] Bharat Coronado Work Phone: [facility] Start: 11-26-2021 Telephone encounter Bharat nair MD Work Phone: [facility] Comment on above: External Labs Start: 11-26-2021 End: 11-26-[address] Bharat Coronado Work Phone: [facility] Start: 11-26-2021 End: 11-26-[address] Bharat Coronado Work Phone: [facility] Start: 11-02-2021 Refill Bharat chan MD Work Phone: [facility] Comment on above: Refill Request Start: 05-24-2021 End: 05-24-[address] BJ MEMBRENO MD [facility] Start: 02-20-2021 End: 02-20-[address] BJ MEMBRENO MD [facility] Start: 02-12-2021 End: 02-12-2021 Telephone follow-up John Avalos MD Work Phone: [facility] Start: 02-07-2021 End: 02-08-2021 AMB External Visit YUKI CROWEARTZ 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-MERCHANDISE FLOW TEAM LEADER [facility] Start: 02-06-2021 End: 02-06-2021 Telephone follow-up John Avalos MD Work Phone: [employer] Start: 02-03-2021 End: 02-08-2021 Evaluation and management of inpatient DR BJ MEMBRENO MD [facility] Start: 03-31-2020 End: 03-31-2020 Office outpatient visit 10 minutes John Avalos MD Work Phone: [employer] Start: 02-17-2020 End: 02-22-2020 Patient encounter procedure Sean Marlow DO Work Phone: [facility] Work Phone: Start: 11-24-2019 End: 11-24-2019 Office outpatient visit 10 minutes John Avalos MD Work Phone: [employer] Start: 02-08-2019 End: 02-08-2019 Office outpatient visit 10 minutes John Avalos MD Work Phone: [facility] Start: 02-11-2017 End: 02-11-2017 Telephone follow-up John Avalos MD Work Phone: [employer] Start: 02-07-2017 End: 02-07-2017 Emergency department patient visit CLAUDIA L[facility]IS [facility] Start: 03-18-2016 End: 03-18-2016 Office outpatient visit 15 minutes John Avalos MD Work Phone: [employer] Start: 08-08-2014 End: 08-08-2014 Office outpatient visit 15 minutes John Avalos MD Work Phone: [facility] Start: 02-02-2013 End: 02-02-2013 Patient encounter procedure John Avalos MD Work Phone: [facility] Start: 12-30-2011 End: 12-30-2011 Patient encounter procedure John Avalos MD Work Phone: [facility] Start: 04-09-2011 End: 04-09-2011 Patient encounter procedure John Avalos MD Work Phone: [facility] Start: 03-25-2011 End: 03-25-2011 Patient encounter procedure John Avalos MD Work Phone: [facility] Start: 12-05-2010 End: 12-05-2010 Patient encounter procedure John Avalos MD Work Phone: [facility] Start: 08-29-2010 End: 08-29-2010 Medication John Avalos MD Work Phone: [facility] Start: 08-29-2010 End: 08-29-2010 Historical Summary John Avalos MD Work Phone: [employer] [employer] Procedures Date Procedure Procedure Detail Performing Clinician Start: 11-18-2024 Adult depression scr eening assessment Nandini Flores PA-C Work Phone: Start: 11-18-2024 Lipid 1996 panel - S yordy or Plasma Nandini Flores PA-C Work Phone: Start: 09-20-2024 X-ray of chest, PA a nd lateral views Dr. Bharat Coronado MD Work Phone: Start: 09-20-2024 D-dimer assay, quantitative Dr. Bharat Coronado MD Work Phone: Comment on above: NORMAL D-Dimer level (<0.50) indicates no DVT or PE. Start: 09-20-[address] Bharat Coronado MD Work Phone: Start: 07-20-2024 Evaluation of diagno stic study results Dr. Bharat Coronado MD Work Phone: Start: 07-15-2024 Plain chest X-ray Dr. Reji Coronado MD Work Phone: Start: 07-15-[address] Bharat Coronado MD Work Phone: Start: 07-04-2024 X-ray of chest, PA a nd lateral views Dr. Bharat Coronado MD Work Phone: Start: 07-04-[address] Bharat Coronado MD Work Phone: Start: 07-01-2024 Radionuclide imaging of perfusion of myocardium under exercise stress Dr. Bharat Coronado MD Work Phone: Start: 06-02-2024 Evaluation of diagno stic study results Dr. Bharat Coronado MD Work Phone: Start: 06-01-2024 Measurement of renal function Dr. Bharat Coronado MD Work Phone: Comment on above: GFR Calc Start: 06-01-2024 Ecg routine ecg w/le ast 12 lds w/i&r Davonte Augustin 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.MERCHANDISE FLOW TEAM LEADER Work Phone: Start: 05-10-2024 Evaluation of diagno stic study results Dr. Bharat Coronado MD Work Phone: Start: 03-30-2024 Plain chest X-ray Dr. Reji Coronado MD Work Phone: Start: 02-20-2024 Ecg routine ecg w/le ast 12 lds w/i&r Suzi House 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.MERCHANDISE FLOW TEAM LEADER Work Phone: Start: 02-16-2024 Lipid 1996 panel - S yordy or Plasma Suzi House 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.MERCHANDISE FLOW TEAM LEADER Work Phone: Start: 11-12-2023 Antibody screen ZAK MENDOZA Comment on above: Order Comment: Speci men Type: BLOOD SPECIMENOrdering Facility: [facility] Address: [address] [place] [address] Performed By: #### T SCR ####[facility] BLOOD BANKCLIA [id number] [place] [address] [place] Start: 09-12-2023 Ecg routine ecg w/le ast 12 lds w/i&r Radha Hughes MD Work Phone: Start: 08-19-2023 History of placement of stent for coronary artery disease History of coronary artery stent placement Gregory Coon HUSBANDRY PERSON-C Comment on above: PCI-KAREN-OM2 w/ 2.5 x 16 mm Synergy and KAREN-Sequential SVG-OM2 and LPDA w/ 4.0 x 12 mm Synergy Stent 10/26/18, KAREN Mid SVG to OM using Uche Kinney 3.0x15 mm 08/19/23 Start: 08-14-2023 Plain chest X-ray Dr. Reji Coronado Work Phone: Start: 08-07-2023 Radiologic exam ches t 2 views Suly Bah 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.MERCHANDISE FLOW TEAM LEADER Work Phone: Start: 07-30-2023 Plain chest X-ray Dr. Reji Coronado Work Phone: Start: 07-28-2023 COVID & INFLUENZA A/ B & RSV NAAT, ROUTINE Donavan Ludwig MD Work Phone: Start: 07-28-2023 INFLUENZA A&B MOLECU LAR (POC) Donavan Ludwig MD Work Phone: Start: 06-26-2023 CT angiography of ch est with contrast Dr. Bharat Coronado Work Phone: Start: 04-25-2023 Radiologic exam abdo men 1 view Vinny Davis MD Work Phone: Start: 03-10-2023 Urnls dip stick/tabl et rgnt auto w/o microscopy Vinny Davis MD Work Phone: Start: 05-11-2022 Plain chest X-ray Dr. Reji Coronado Work Phone: Start: 12-10-2021 Plain chest X-ray Dr. Reji Coronado Work Phone: Start: 06-27-2021 Adult depression scr eening assessment Bharat Coronado MD Work Phone: Start: 03-29-2021 Lipid 1996 panel - S yordy or Plasma Wily Mcghee 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.MERCHANDISE FLOW TEAM LEADER Work Phone: Start: 02-05-2021 Posterior cervical s pine approach (qualifier value) DR BJ MEMBRENO MD Comment on above: C3-4 Start: 03-31-2020 End: 03-31-2020 Removal impacted cerumen instrumentation unilat Nikole Reed PA-C Work Phone: Start: 02-17-2020 End: 02-22-2020 Blood pressure screening not performed - reason not given Sean Marlow DO Work Phone: Start: 02-17-2020 End: 02-22-2020 BMI documented as above normal parameters - follow-up documented Sean Marlow DO Work Phone: Start: 02-17-2020 End: 02-22-2020 Documentation of current medications Sean Marlow DO Work Phone: Start: 02-17-2020 End: 02-22-2020 Pain assessment documented as positive - follow-up documented Scot Eliezer Marlow DO Work Phone: Start: 02-17-2020 End: 02-22-2020 Tobacco non-user Sean Marlow DO Work Phone: Start: 10-26-2018 History of placement of stent for coronary artery disease History of coronary artery stent placement Dr. Bharat Coronado Work Phone: Start: 08-30-2016 End: 08-30-2016 Dietary management education, guidance, and counseling Cyn Clemente Start: 08-30-2016 End: 08-30-2016 Documentation of current medications Cyn Clemente Start: 08-30-2016 End: 08-30-2016 *Hepatic Function Panel Reji Berrios Start: 08-30-2016 End: 08-30-2016 WELLNESS PROGRAM ADMINISTRATOR Mina Enriquez MD Start: 08-30-2016 End: 08-30-2016 Follow Up Appt 1 year Mina Enriquez MD Start: 08-30-2016 End: 08-30-2016 Lipid panel [AGGREGATE] Reji Berrios Start: 08-08-2015 End: 08-30-2016 *Hepatic Function Panel Reji Berrios Start: 08-08-2015 End: 08-08-2015 Follow Up Appt 6 months Reji Berrios Start: 08-08-2015 End: 08-30-2016 Lipid panel [AGGREGATE] Reji Berrios Start: 08-08-2015 End: 08-08-2015 MMReji Enriquez MD Start: 08-08-2015 End: 08-30-2016 Nuclear stress test -exercise Mina Enriquez MD Start: 01-13-2015 End: 01-25-2016 *Hepatic Function Panel Reji Berrios Start: 01-13-2015 End: 01-25-2016 Lipid panel [AGGREGATE] Reji Berrios Start: 08-08-2014 End: 08-08-2014 Removal impacted cerumen instrumentation unilat John Avalos MD Work Phone: Start: 07-15-2014 End: 07-15-2014 *Hepatic Function Panel Reji Berrios Start: 07-15-2014 End: 07-16-2014 Documentation of current medications Mina Enriquez MD Start: 07-15-2014 End: 07-15-2014 Follow Up Appt 6 months Reji Berrios Start: 07-15-2014 End: 07-15-2014 Lipid panel [AGGREGATE] Reji Berrios Start: 07-15-2014 End: 07-15-2014 MMReji Enriquez MD Start: 03-31-2013 End: 07-15-2014 *Hepatic Function Panel Rosaura De La O PA-C Work Phone: Start: 03-31-2013 End: 03-31-2013 WELLNESS PROGRAM ADMINISTRATOR Rosaura De La O PA-C Work Phone: Start: 03-31-2013 End: 03-31-2013 Follow Up Appt 6 months Rosaura De La O PA-C Work Phone: Start: 03-31-2013 End: 07-15-2014 Lipid panel [AGGREGATE] Rosaura De La O PA-C Work Phone: Start: 02-02-2013 End: 02-02-2013 Removal skn tags saddle cutter fibrq tags any area up15 Radha Mejía MD Work Phone: Start: 11-10-2012 End: 11-10-2012 Alcoholism counseling Cyn Clemente Start: 11-10-2012 End: 11-10-2012 *Hepatic Function Panel Reji Berrios Start: 11-10-2012 End: 11-10-2012 Follow Up Appt 6 months Reji Berrios Start: 11-10-2012 End: 11-10-2012 Lipid panel [AGGREGATE] Reji Berrios Start: 11-10-2012 End: 11-10-2012 MMM Mina Enriquez MD Start: 11-10-2012 End: 03-22-2013 Nuclear stress test -exercise Mina Enriquez MD Start: 10-01-2011 End: 03-22-2013 *Hepatic Function Panel Reji Berrios Start: 10-01-2011 End: 10-01-2011 Follow Up Appt 6 months Reji Berrios Start: 10-01-2011 End: 03-22-2013 Lipid panel [AGGREGATE] Reji Berrios Start: 04-09-2011 End: 04-09-2011 Tympanometry John Avalos MD Work Phone: Start: 03-26-2011 End: 03-22-2013 *Hepatic Function Panel HunterReji Aguilar Start: 03-26-2011 End: 03-22-2013 Follow Up Appt 6 months HunterReji Aguilar Start: 03-26-2011 End: 03-22-2013 Lipid panel [AGGREGATE] MinaReji Aguilar Start: 03-25-2011 End: 03-25-2011 Removal impacted cerumen instrumentation unilat John Avalos MD Work Phone: Start: 12-02-2008 History of coronary artery bypass grafting H/O coronary artery bypass surgery Gregory Coon HUSBANDRY PERSON-C Comment on above: CABG x 3 SHEIKH-D2, Se quential SVG-LPDA and OM2 12/02/2008 Coronary artery bypa ss grafts x 3 DR BJ MEMBRENO MD History of coronary artery bypass grafting History of coronary artery bypass surgery Pst 2 History of coronary artery bypass grafting History of coronary artery bypass surgery Radha Hughes MD Work Phone: History of coronary artery bypass grafting History of coronary artery bypass surgery Davonte Augustin APRN.MERCHANDISE FLOW TEAM LEADER Work Phone: History of placement of stent for coronary artery disease History of coronary artery stent placement Radha Hughes MD Work Phone: Viral antigen assay Dr. Bharat Coronado Work Phone: NEGATED: Highlighted rowStart: 02-17-2020 End: 02-17-2020 Documentation of current medications Stacey Overton AT Plan of Treatment Date Care Activity Detail Author Start: 06-12-2032 Urine microalbumin profile [facility] Start: 02-03-2031 Urine microalbumin profile DTAP,TDAP,TD (2 - Td or Tdap) [facility] Start: 11-18-2029 Lipid panel Lipid Screening [facility] Start: 02-15-2029 Lipid panel Lipid Screening [facility] Start: 11-29-2027 PROSTATE CANCER SCREENING DISCUSSION PROSTATE CANCER SCREENING DISCUSSION [facility] Start: 11-29-2027 Prostate specific antigen measurement Prostate Cancer Screening Discussion [facility] Start: 11-19-2027 Diabetes Screening Diabetes Screening [facility] Start: 10-14-2027 Diabetes Screening Diabetes Screening [facility] Start: 01-26-2027 Diabetes Screening Diabetes Screening [facility] Start: 11-12-2026 Diabetes Screening Diabetes Screening [facility] Start: 03-29-2026 Lipid 1996 panel - Serum or Plasma Lipid Screening [facility] Start: 03-29-2026 Lipid panel Lipid Screening [facility] Start: 03-29-2026 LIPID SCREEN LIPID SCREEN [facility] Start: 12-09-2025 Annual PCP Team Chronic Disease Visit Annual PCP Team Chronic Disease Visit [facility] Start: 11-18-2025 Anxiety Screening Anxiety Screening [facility] Start: 11-18-2025 Depression Screening Depression Screening [facility] Start: 11-18-2025 Hepatitis B surface antibody level LDL Cholesterol [facility] Start: 11-18-2025 HIV screening HIV Screening [facility] Comment on above: Postponed from 10/14/1983 (Declined at t his time) Start: 11-18-2025 Pneumococcal Vaccine: 50+ (1 of 2 - PCV) Pneumococcal Vaccine: 50+ (1 of 2 - PCV) [facility] Comment on above: Postponed from 1984 (Declined at t his time) Start: 11-18-2025 Screening for malignant neoplasm of colon Colorectal Cancer Screening [facility] Comment on above: Postponed from 2010 (Declined at t his time) Start: 11-18-2025 Shingrix Vaccine (1 of 2) Shingrix Vaccine (1 of 2) [facility] Comment on above: Postponed from 10/14/2015 (Declined at t his time) Start: 03-14-2025 End: 03-14-2025 Patient encounter procedure 03/14/2025 8:20 AM EST Office Visit [facility] [place] [address] [place] [address] Wily Mcghee APRN.MERCHANDISE FLOW TEAM LEADER [address] [place] [id number] 3 month follow up [facility] [place] Comment on above: 3 month follow up Start: 03-11-2025 End: 06-10-2025 Comprehensive metabolic 2000 panel - Serum or Plasma COMPREHENSIVE METABOLIC PANEL Lab Routine Type 2 diabetes mellitus without complication, without long-term current use of insulin (HCC) Expected: 03/11/2025, Expires: 06/10/2025 [facility] Comment on above: Expected: 03/11/2025, Expires: Start: 03-11-2025 End: 06-10-2025 Hemoglobin A1c in Blood HEMOGLOBIN A1C Lab Routine Type 2 diabetes mellitus without complication, without long-term current use of insulin (HCC) Expected: 03/11/2025, Expires: 06/10/2025 [facility] Work Phone: Comment on above: Expected: 03/11/2025, Expires: Start: 03-11-2025 End: 06-10-2025 TESTOSTERONE, FREE AND TOTAL, BY EQUILIBRIUM DIALYSIS AND MASS SPECTROMETRY TESTOSTERONE, FREE AND TOTAL, BY EQUILIBRIUM DIALYSIS AND MASS SPECTROMETRY Lab Routine Hypogonadism in male Expected: 03/11/2025, Expires: 06/10/2025 [facility] Comment on above: Expected: 03/11/2025, Expires: Start: 02-18-2025 End: 02-18-2025 Patient encounter procedure 02/18/2025 3:30 PM EST Office Visit [facility] [address] [place] [address] Suzi House APRN.MERCHANDISE FLOW TEAM LEADER [address] [place] [address] 4 month s/p PVI [facility] Comment on above: 4 month s/p PVI Start: 02-15-2025 Annual PCP Team Chronic Disease Visit Annual PCP Team Chronic Disease Visit [facility] Start: 02-15-2025 Covid-19 Vaccine ( season) Covid-19 Vaccine ( season) [facility] Comment on above: Postponed from 12/14/2023 (Declined at t his time) Start: 02-15-2025 Hepatitis B surface antibody level LDL Cholesterol [facility] Start: 01-14-2025 End: 01-14-2025 Patient encounter procedure [facility] Comment on above: Persistent atrial fibrillation (HCC) [I4 8.19]; Dyspnea, unspecified type [R06.00] a fib ordedr in revi ew tab Start: 01-12-2025 End: 10-20-2025 Echocardiography [facility] Routine Persistent atrial fibrillation (HCC) Dyspnea, unspecified type Expected: 01/12/2025, Expires: 10/20/2025 [facility] Work Phone: Comment on above: Expected: 01/12/2025, Expires: Start: 01-12-2025 End: 10-20-2025 OUTSIDE VENDOR CARDIAC OUTPATIENT EXTENDED RHYTHM RECORDING (WITHOUT TELEMETRY) OUTSIDE VENDOR CARDIAC OUTPATIENT EXTENDED RHYTHM RECORDING (WITHOUT TELEMETRY) Holter Routine Persistent atrial fibrillation (HCC) Expected: 01/12/2025, Expires: 10/20/2025 [facility] Comment on above: Expected: 01/12/2025, Expires: Start: 12-13-2024 Influenza vaccination [facility] Start: 12-07-2024 End: 12-07-2024 Patient encounter procedure 12/07/2024 9:00 AM EDT Office Visit [facility] [address] [place] [address] Radha Hughes MD [address] [place] [address] 3 month follow up - hlk [facility] Comment on above: 3 month follow up - hlk Start: 11-30-2024 Subsequent hospital visit by physician 11/30/2024 Hospital Encounter [facility] [address] [place] [address] Radha Hughes MD [address] [place] [address] prison current use of anticoagulant therapy [Z79.01], Status post catheter ablation of atrial fibrillation [Z98.890], Persistent atrial fibrillation (HCC) [I48.19] [facility] Comment on above: prison current use of anticoagulant t herapy [Z79.01], Status post catheter ablation of atrial fibrillation [Z98.890], Persistent atrial fibrillation (HCC) [I48.19] Start: 11-25-2024 Subsequent hospital visit by physician [facility] Comment on above: prison current use of anticoagulant t herapy [Z79.01], Status post catheter ablation of atrial fibrillation [Z98.890], Persistent atrial fibrillation (HCC) [I48.19] Start: 2024 Subsequent hospital visit by physician 2024 Hospital Encounter [facility] [address] [place] [address] Radha Hughes MD [address] [facility] [address] [place] [phone] prison current use of anticoagulant therapy [Z79.01], Status post catheter ablation of atrial fibrillation [Z98.890], Persistent atrial fibrillation (HCC) [I48.19] [facility] Comment on above: prison current use of anticoagulant t herapy [Z79.01], Status post catheter ablation of atrial fibrillation [Z98.890], Persistent atrial fibrillation (HCC) [I48.19] Start: 10-12-2024 End: 10-12-2024 Admission to same day surgery center 10/12/2024 12:43 PM EDT - 10/12/2024 5:23 PM EDT Surgery [address] [address] Zak Mendoza MD [address] [facility] [address] [place], [place] [id number] COMPRE EP EVAL ABLTJ ATR FIB PULM VEIN ISOLATION [facility] Comment on above: COMPRE EP EVAL ABLTJ ATR FIB PULM VEIN I SOLATION Start: 10-12-2024 End: 10-12-2024 Ephys evl trnsptl tx atrial fib isolat pulm vein COMPRE EP EVAL ABLTJ ATR FIB PULM VEIN ISOLATION prison current use of anticoagulant therapy Status post catheter ablation of atrial fibrillation Persistent atrial fibrillation (HCC) 10/12/2024 12:43 PM EDT [facility] Start: 10-12-2024 Subsequent hospital visit by physician 10/12/2024 12:43 PM EDT Hospital Encounter [address] [address] Zak Mendoza MD [address] [place] [address] [address] [place] [address] prison current use of anticoagulant therapy [Z79.01], Status post catheter ablation of atrial fibrillation [Z98.890], Persistent atrial fibrillation (HCC) [I48.19] [facility] Comment on above: prison current use of anticoagulant t herapy [Z79.01], Status post catheter ablation of atrial fibrillation [Z98.890], Persistent atrial fibrillation (HCC) [I48.19] Start: 10-11-2024 Influenza vaccination Influenza Vaccine (#1) [facility] Comment on above: Postponed from 12/14/2023 (Declined at t his time) Start: 10-06-2024 End: 01-05-2025 TESTOSTERONE, FREE AND TOTAL, BY EQUILIBRIUM ULTRAFILTRATION MASS SPECTROMETRY TESTOSTERONE, FREE AND TOTAL, BY EQUILIBRIUM ULTRAFILTRATION MASS SPECTROMETRY Lab Routine Hypogonadism in male Expected: 10/06/2024 (Approximate), Expires: 01/05/2025 [facility] Work Phone: Comment on above: Expected: 10/06/2024 (Approximate), Expi res: 01/05/2025 Start: 09-30-2024 Subsequent hospital visit by physician 09/30/2024 Hospital Encounter [address] [address] Zak Mendoza MD [address] [place] [address] [address] [place] [address] 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], Status post catheter ablation of atrial fibrillation [Z98.890], Persistent atrial fibrillation (HCC) [I48.19] [facility] Comment on above: 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 First IM- Spouse coming with patient for education. Patient brining medication. [facility] [place] Comment on above: Testosterone Injection. First IM- Spouse coming with patient for education. Patient brining medication. Start: 08-16-2024 End: 08-16-2024 Patient encounter procedure 08/16/2024 7:40 AM EDT Office Visit Family [facility] [address] [facility] [place] [address] Wily Mcghee APRN.[facility] [address] [facility] [address] 6 month follow up Family [facility] Comment on above: 6 month follow up Start: 08-16-2024 Patient discharge [facility] Start: 08-13-2024 Annual PCP Team Chronic Disease Visit Annual PCP Team Chronic Disease Visit [facility] Start: 08-13-2024 BP Controlled (<130/80) BP Controlled (<130/80) [facility] Start: 08-06-2024 Annual PCP Team Chronic Disease Visit Annual PCP Team Chronic Disease Visit [facility] Start: 08-06-2024 BP Controlled (<130/80) BP Controlled (<130/80) [facility] Start: 07-29-2024 [facility] Start: 07-27-2024 BP Controlled (<130/80) BP Controlled (<130/80) [facility] Start: 07-15-2024 [facility] Start: 07-04-2024 [facility] Start: 06-02-2024 Patient referral [facility] Work Phone: Start: 05-25-2024 End: 05-25-2024 Patient encounter procedure 05/25/2024 1:40 PM EST Office Visit [facility] [place] [address] Radha Hughes MD [address] [phone] (Fax) 3 month follow up for HCC [facility] Comment on above: 3 month follow up for HCC Start: 05-10-2024 [facility] Start: 04-19-2024 End: 04-19-2024 Patient encounter procedure 04/19/2024 9:15 AM EST Office Visit Urology [address] [place] [phone] Vinny Davis Jr., MD [address] [place], [place] [id number] 1 year follow up, Kidney stone [facility] Comment on above: 1 year follow up, Kidney stone Start: 04-10-2024 Annual PCP Team Chronic Disease Visit Annual PCP Team Chronic Disease Visit [facility] Start: 03-30-2024 [facility] Start: 03-30-2024 [facility] Start: 03-18-2024 BP Controlled (<130/80) BP Controlled (<130/80) [facility] Start: 03-01-2024 End: 03-01-2024 Patient encounter procedure 03/01/2024 1:00 PM EST Office Visit General Surgery [address] [place], [place] [phone] Abelino Eddy MD [address] [place], [place] [phone] Screening for colon cancer [Z12.11] General Surgery Comment on above: Screening for colon cancer [Z12.11] Start: 02-20-2024 End: 02-20-2024 Patient encounter procedure 02/20/2024 11:00 AM EST Office Visit [facility] [address] [place] [address] Suzi House APRN.MERCHANDISE FLOW TEAM LEADER [address] [place], [place] [phone] (Fax) 3 month post PVI [facility] Comment on above: 3 month post PVI Start: 02-16-2024 End: 05-17-2024 LIPID PANEL, NONFASTING [facility] Comment on above: Expected: 02/16/2024, Expires: Start: 02-16-2024 End: 05-17-2024 TESTOSTERONE, FREE AND TOTAL, BY EQUILIBRIUM ULTRAFILTRATION MASS SPECTROMETRY [facility] Work Phone: Comment on above: Expected: 02/16/2024, Expires: Start: 02-16-2024 End: 02-16-2024 Patient encounter procedure [facility] Comment on above: medication follow up ER/medication follow up Start: 02-12-2024 End: 11-27-2024 Echocardiography [facility] Cardiology Routine Persistent atrial fibrillation (HCC) Dyspnea, unspecified type Expected: 02/12/2024, Expires: 11/27/2024 [facility] Work Phone: Comment on above: Expected: 02/12/2024, Expires: Start: 02-12-2024 End: 11-27-2024 HOLTER MONITOR 24 HOUR HOLTER MONITOR 24 HOUR ECG Routine Persistent atrial fibrillation (HCC) Dyspnea, unspecified type Expected: 02/12/2024, Expires: 11/27/2024 [facility] Comment on above: Expected: 02/12/2024, Expires: Start: 02-12-2024 End: 02-12-2024 Patient encounter procedure [facility] Comment on above: Persistent atrial fibrillation (HCC) [I4 8.19]; Dyspnea, unspecified type [R06.00] 24HR Start: 01-30-2024 End: 04-30-2024 TESTOSTERONE, FREE AND TOTAL, BY EQUILIBRIUM ULTRAFILTRATION MASS SPECTROMETRY TESTOSTERONE, FREE AND TOTAL, BY EQUILIBRIUM ULTRAFILTRATION MASS SPECTROMETRY Lab Routine Hypogonadism in male Expected: 01/30/2024, Expires: 04/30/2024 [facility] Work Phone: Comment on above: Expected: 01/30/2024, Expires: Start: 12-28-2023 Annual PCP Team Chronic Disease Visit Annual PCP Team Chronic Disease Visit [facility] Start: 12-14-2023 Covid-19 Vaccine ( season) Covid-19 Vaccine ( season) [facility] Start: 12-14-2023 Covid-19 Vaccine ( season) Covid-19 Vaccine ( season) [facility] Start: 12-14-2023 Influenza vaccination [facility] Start: 11-29-2023 ANNUAL PCP TEAM CHRONIC DISEASE VISIT ANNUAL PCP TEAM CHRONIC DISEASE VISIT [facility] Start: 11-12-2023 End: 11-12-2023 Admission to same day surgery center 11/12/2023 8:00 AM EDT - 11/12/2023 12:10 PM EDT Surgery [facility] [address] [place] [address] Radha Hguhes MD [address] [place] [phone] COMPLETE EPS W/PVI ABL W/WO 3D MAP ICE [facility] Comment on above: COMPLETE EPS W/PVI ABL W/WO 3D MAP ICE Start: 11-12-2023 End: 11-12-2023 Ephys evl trnsptl tx atrial fib isolat pulm vein COMPLETE EPS W/PVI ABL W/WO 3D MAP ICE Tachy-bradley syndrome (HCC) Bradycardia Persistent atrial fibrillation (HCC) Presence of cardiac pacemaker 11/12/2023 8:00 AM EDT [facility] Start: 11-12-2023 Subsequent hospital visit by physician [facility] Comment on above: 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] Start: 10-30-2023 ANNUAL PCP TEAM CHRONIC DISEASE VISIT ANNUAL PCP TEAM CHRONIC DISEASE VISIT [facility] Start: 10-30-2023 COLORECTAL CANCER SCREENING COLORECTAL CANCER SCREENING [facility] Comment on above: Postponed from 2010 (Declined at t his time) Start: 10-30-2023 COVID-19 VACCINE (3 - Pfizer series) COVID-19 VACCINE (3 - Pfizer series) [facility] Comment on above: Postponed from 10/05/2020 (Declined at t his time) Start: 10-30-2023 HIV SCREENING HIV SCREENING [facility] Comment on above: Postponed from 10/14/1983 (Declined at t his time) Start: 10-30-2023 HIV screening HIV Screening [facility] Comment on above: Postponed from 10/14/1983 (Declined at t his time) Start: 10-30-2023 Screening for malignant neoplasm of colon Colorectal Cancer Screening [facility] Comment on above: Postponed from 2010 (Declined at t his time) Start: 10-30-2023 SHINGRIX VACCINE (1 of 2) SHINGRIX VACCINE (1 of 2) [facility] Comment on above: Postponed from 10/14/2015 (Declined at t his time) Start: 09-12-2023 End: 09-12-2023 Patient encounter procedure 09/12/2023 10:20 AM EDT Office Visit [facility] [address] [place] [address] Radha Hughes MD [address] [place] [phone] Ref; WHG / unspec. AFibEKG/eo [facility] Comment on above: Ref; WHG / unspec. AFibEKG/eo Start: 08-20-2023 Patient discharge [facility] Start: 08-19-2023 Following clinical pathway protocol [facility] Start: 08-19-2023 Ambulation without limitation [facility] Start: 08-19-2023 Provision of activity privileges [facility] Start: 08-19-2023 Cardiac monitoring [facility] Start: 08-19-2023 Cardiac rehabilitation - phase 1 [facility] Start: 08-19-2023 Cardiac rehabilitation - phase 2 [facility] Start: 08-19-2023 Notification of physician [facility] Start: 08-19-2023 Oxygen therapy [facility] Start: 08-19-2023 Patient discharge [facility] Start: 08-19-2023 Taking patient vital signs [facility] Start: 08-19-2023 Vascular disease risk assessment [facility] Start: 08-19-2023 Vital signs measurements [facility] Start: 08-19-2023 End: 08-19-2023 [facility] Start: 08-19-2023 Admission procedure [facility] Start: 08-19-2023 Patient referral [facility] Work Phone: Start: 08-14-2023 End: 08-14-2023 Patient encounter procedure 08/14/2023 8:00 AM EDT Office Visit [facility] [address] [place] [address] Suly Bah APRN.MERCHANDISE FLOW TEAM LEADER [address] [place] [address] express care follow up [facility] Comment on above: express care follow up Start: 08-02-2023 Patient discharge [facility] Start: 08-01-2023 Provision of activity privileges [facility] Start: 07-31-2023 Following clinical pathway protocol [facility] Start: 07-31-2023 Care planning and problem solving actions [facility] Start: 07-31-2023 Referral to category consultant [facility] Start: 07-31-2023 Care planning and problem solving actions [facility] Start: 07-30-2023 End: 07-31-2023 [facility] Start: 07-30-2023 Dual pressure spontaneous ventilation support [facility] Start: 07-30-2023 Application of elastic bandage [facility] Start: 07-30-2023 Assessment of risk of venous thromboembolism [facility] Start: 07-30-2023 Continuous pulse oximetry [facility] Start: 07-30-2023 Elevation of affected extremity [facility] Start: 07-30-2023 Insertion of catheter into peripheral vein [facility] Start: 07-30-2023 Introduction of urinary catheter [facility] Start: 07-30-2023 Measuring intake and output [facility] Start: 07-30-2023 Notification of physician [facility] Start: 07-30-2023 Oxygen therapy [facility] Start: 07-30-2023 Patient education [facility] Start: 07-30-2023 Patient referral to dietitian [facility] Start: 07-30-2023 Providing care according to standard [facility] Start: 07-30-2023 Provision of activity privileges [facility] Start: 07-30-2023 Referral to service [facility] Start: 07-30-2023 Following clinical pathway protocol [facility] Start: 07-30-2023 Transfusion of blood product [facility] Start: 07-30-2023 Admission procedure [facility] Start: 04-14-2023 Behavioral Health Screening Behavioral Health Screening [facility] Start: 01-29-2023 End: 03-31-2023 TESTOSTERONE, FREE AND TOTAL TESTOSTERONE, FREE AND TOTAL Lab Routine Hypogonadism in male Expected: 01/29/2023 (Approximate), Expires: 03/31/2023 [facility] Work Phone: Comment on above: Expected: 01/29/2023 (Approximate), Expi res: 03/31/2023 Start: 12-30-2022 Procedure [facility] Start: 12-16-2022 End: 02-15-2023 Urinalysis complete panel - Urine URINALYSIS WITH MICROSCOPIC, REFLEX CULTURE Lab Routine Recurrent UTI (urinary tract infection) Urinary tract infection with hematuria, site unspecified Expected: 12/16/2022, Expires: 02/15/2023 [facility] Work Phone: Comment on above: Expected: 12/16/2022, Expires: 3 Start: 12-13-2022 Covid-19 Vaccine ( season) Covid-19 Vaccine () [facility] Start: 12-13-2022 Influenza vaccination [facility] Start: 11-28-2022 End: 01-28-2023 Prostate specific Ag [Mass/volume] in Serum or Plasma [facility] Work Phone: Comment on above: Expected: 11/28/2022, Expires: 3 Start: 06-27-2022 Adult depression screening assessment DEPRESSION SCREENING [facility] Start: 06-27-2022 ANNUAL PCP TEAM CHRONIC DISEASE VISIT ANNUAL PCP TEAM CHRONIC DISEASE VISIT [facility] Start: 05-11-2022 Patient discharge [facility] Start: 05-10-2022 Bedrest [facility] Start: 05-10-2022 Elevation of head of bed [facility] Start: 05-10-2022 Admission procedure [facility] Start: 05-10-2022 Taking patient vital signs [facility] Start: 05-10-2022 Wound care [facility] Start: 05-10-2022 End: 05-10-2022 [facility] Start: 05-10-2022 Following clinical pathway protocol [facility] Start: 05-10-2022 Transfusion of blood product [facility] Start: 03-29-2022 Hepatitis B surface antibody level LDL CHOLESTEROL [facility] Start: 12-15-2021 Patient discharge [facility] Work Phone: Start: 12-14-2021 Care planning and problem solving actions [facility] Work Phone: Start: 12-14-2021 Application of intermittent pneumatic compression device [facility] Work Phone: Start: 12-14-2021 Taking patient vital signs [facility] Work Phone: Start: 12-14-2021 Vital signs measurements [facility] Work Phone: Start: 12-14-2021 [facility] Work Phone: Start: 12-13-2021 End: 12-14-2021 [facility] Work Phone: Start: 12-13-2021 Influenza vaccination INFLUENZA (#1) [facility] Start: 12-13-2021 Catheterization of vein [facility] Work Phone: Start: 12-13-2021 Notification of physician [facility] Work Phone: Start: 12-13-2021 Vital signs measurements [facility] Work Phone: Start: 12-13-2021 Provision of activity privileges [facility] Work Phone: Start: 12-13-2021 [facility] Work Phone: Start: 12-12-2021 Care planning and problem solving actions [facility] Work Phone: Start: 12-12-2021 Referral to category consultant [facility] Work Phone: Start: 12-12-2021 Care planning and problem solving actions [facility] Work Phone: Start: 12-11-2021 [facility] Work Phone: Start: 12-11-2021 [facility] Work Phone: Start: 12-10-2021 End: 12-11-2021 [facility] Work Phone: Start: 12-10-2021 Dual pressure spontaneous ventilation support [facility] Work Phone: Start: 12-10-2021 Care planning and problem solving actions [facility] Work Phone: Start: 12-10-2021 Ambulation without limitation [facility] Work Phone: Start: 12-10-2021 Application of elastic bandage [facility] Work Phone: Start: 12-10-2021 Assessment of risk of venous thromboembolism [facility] Work Phone: Start: 12-10-2021 Catheterization of vein [facility] Work Phone: Start: 12-10-2021 Elevation of affected extremity [facility] Work Phone: Start: 12-10-2021 Incentive spirometry [facility] Work Phone: Start: 12-10-2021 Insertion of catheter into peripheral vein [facility] Work Phone: Start: 12-10-2021 Measuring intake and output [facility] Work Phone: Start: 12-10-2021 Medication education [facility] Work Phone: Start: 12-10-2021 Notification of physician [facility] Work Phone: Start: 12-10-2021 Oxygen therapy [facility] Work Phone: Start: 12-10-2021 Patient education [facility] Work Phone: Start: 12-10-2021 Providing care according to standard [facility] Work Phone: Start: 12-10-2021 Continuous pulse oximetry [facility] Work Phone: Start: 12-10-2021 Following clinical pathway protocol [facility] Work Phone: Start: 12-10-2021 Admission procedure [facility] Work Phone: Start: 04-14-2021 DEPRESSION ASSESSMENT DEPRESSION ASSESSMENT [facility] Start: 01-10-2021 COVID-19 VACCINE (3 - Booster for Pfizer series) COVID-19 VACCINE (3 - Booster for Pfizer series) [facility] Start: 2020 PROSTATE CANCER SCREENING DISCUSSION PROSTATE CANCER SCREENING DISCUSSION [facility] Start: 10-05-2020 COVID-19 VACCINE (3 - Booster for Pfizer series) COVID-19 VACCINE (3 - Booster for Pfizer series) [facility] Start: 02-17-2020 End: 02-17-2020 25 hydroxy includes fractions if performed 25-hydroxyvitamin D [facility] Work Phone: Start: 02-17-2020 End: 02-17-2020 Bone &/joint imaging whole body Bone and or joint imaging - whole body [facility] Work Phone: Start: 02-17-2020 End: 02-17-2020 CBC with Differential CBC with Differential [facility] Work Phone: Start: 02-17-2020 End: 02-17-2020 Hla typing a/b/c single antigen Human leukocyte anitgen B27 (HLAB27) [facility] Work Phone: Start: 02-17-2020 End: 02-17-2020 Protein [Mass/Vol] C-reactive protein; high sensitivity (hsCRP) [facility] Work Phone: Start: 02-17-2020 End: 02-17-2020 Radex spine lumbosacral minimum 4 views XR LUMBAR 4VWS FLEX/EX [facility] Work Phone: Start: 02-17-2020 End: 02-17-2020 Rheumatoid factor qualitative Rheumatoid factor essay [facility] Work Phone: Start: 02-17-2020 End: 02-17-2020 Sedimentation rate rbc automated Erythrocytes sedimentation rate (ESR) [facility] Work Phone: Start: 09-02-2017 End: 09-02-2017 Appointment Appointment [facility] Work Phone: Start: 09-02-2017 End: 09-02-2017 Appointment Appointment [facility] Work Phone: Start: 03-03-2017 End: 08-31-2016 *Hepatic Function Panel *Hepatic Function Panel [facility] Work Phone: Start: 03-03-2017 End: 08-31-2016 Lipid panel [AGGREGATE] *Lipid Profile CC PCP [facility] Work Phone: Start: 08-30-2016 End: 08-30-2016 Appointment Appointment [facility] Work Phone: Start: 08-30-2016 End: 08-30-2016 *Hepatic Function Panel *Hepatic Function Panel [facility] Work Phone: Start: 08-30-2016 End: 08-30-2016 WELLNESS PROGRAM ADMINISTRATOR WELLNESS PROGRAM ADMINISTRATOR [facility] Work Phone: Start: 08-30-2016 End: 08-30-2016 Follow Up Appt 1 year Follow Up Appt 1 year [facility] Work Phone: Start: 08-30-2016 End: 08-30-2016 Lipid panel [AGGREGATE] *Lipid Profile CC PCP [facility] Work Phone: Start: 10-14-2015 SHINGRIX VACCINE (1 of 2) SHINGRIX VACCINE (1 of 2) [facility] Start: 08-08-2015 End: 08-30-2016 *Hepatic Function Panel *Hepatic Function Panel [facility] Work Phone: Start: 08-08-2015 End: 08-08-2015 Follow Up Appt 6 months Follow Up Appt 6 months [facility] Work Phone: Start: 08-08-2015 End: 08-30-2016 Lipid panel [AGGREGATE] *Lipid Profile CC PCP [facility] Work Phone: Start: 08-08-2015 End: 08-08-2015 MMM MMM [facility] Work Phone: Start: 08-08-2015 End: 08-08-2015 Nuclear stress test -exercise Nuclear stress test -exercise [facility] Work Phone: Start: 01-13-2015 End: 01-25-2016 *Hepatic Function Panel *Hepatic Function Panel [facility] Work Phone: Start: 01-13-2015 End: 01-25-2016 Lipid panel [AGGREGATE] *Lipid Profile CC PCP [facility] Work Phone: Start: 07-15-2014 End: 07-15-2014 *Hepatic Function Panel *Hepatic Function Panel [facility] Work Phone: Start: 07-15-2014 End: 07-15-2014 Follow Up Appt 6 months Follow Up Appt 6 months [facility] Work Phone: Start: 07-15-2014 End: 07-15-2014 Lipid panel [AGGREGATE] *Lipid Profile CC PCP [facility] Work Phone: Start: 07-15-2014 End: 07-15-2014 MMM MMM [facility] Work Phone: Start: 03-31-2013 End: 07-15-2014 *Hepatic Function Panel *Hepatic Function Panel [facility] Work Phone: Start: 03-31-2013 End: 03-31-2013 WELLNESS PROGRAM ADMINISTRATOR WELLNESS PROGRAM ADMINISTRATOR [facility] Work Phone: Start: 03-31-2013 End: 03-31-2013 Follow Up Appt 6 months Follow Up Appt 6 months [facility] Work Phone: Start: 03-31-2013 End: 07-15-2014 Lipid panel [AGGREGATE] *Lipid Profile CC PCP [facility] Work Phone: Start: 11-10-2012 End: 11-10-2012 *Hepatic Function Panel *Hepatic Function Panel [facility] Work Phone: Start: 11-10-2012 End: 11-10-2012 Follow Up Appt 6 months Follow Up Appt 6 months [facility] Work Phone: Start: 11-10-2012 End: 11-10-2012 Lipid panel [AGGREGATE] *Lipid Profile CC PCP [facility] Work Phone: Start: 11-10-2012 End: 11-10-2012 MMM MMM [facility] Work Phone: Start: 11-10-2012 End: 11-10-2012 Nuclear stress test -exercise Nuclear stress test -exercise [facility] Work Phone: Start: 10-01-2011 End: 03-22-2013 *Hepatic Function Panel *Hepatic Function Panel [facility] Work Phone: Start: 10-01-2011 End: 10-01-2011 Follow Up Appt 6 months Follow Up Appt 6 months [facility] Work Phone: Start: 10-01-2011 End: 03-22-2013 Lipid panel [AGGREGATE] *Lipid Profile [facility] Work Phone: Start: 03-26-2011 End: 03-22-2013 *Hepatic Function Panel *Hepatic Function Panel [facility] Work Phone: Start: 03-26-2011 End: 03-22-2013 Follow Up Appt 6 months Follow Up Appt 6 months [facility] Work Phone: Start: 03-26-2011 End: 03-22-2013 Lipid panel [AGGREGATE] *Lipid Profile [facility] Work Phone: Start: 2010 COLOGUARD (FIT-DNA) COLOGUARD (FIT-DNA) [facility] Start: 2010 Colonoscopy COLONOSCOPY [facility] Start: 2010 COLORECTAL CANCER SCREENING COLORECTAL CANCER SCREENING [facility] Start: [address] COLONOGRAPHY [facility] Start: 2010 DIABETES SCREEN DIABETES SCREEN [facility] Start: 2010 Diabetes Screening Diabetes Screening [facility] Start: 2010 FECAL OCCULT BLOOD FECAL OCCULT BLOOD [facility] Start: 2010 Screening for malignant neoplasm of colon [facility] Start: 2010 SIGMOIDOSCOPY SIGMOIDOSCOPY [facility] Start: 1984 Hepatitis B Vaccine (1 of 3 - 19+ 3-dose series) Hepatitis B Vaccine (1 of 3 - 19+ 3-dose series) [facility] Start: 1984 Pneumococcal Vaccine: 50+ (1 of 2 - PCV) Pneumococcal Vaccine: 50+ (1 of 2 - PCV) [facility] Start: 10-14-1983 Anxiety Screening Anxiety Screening [facility] Start: 10-14-1983 BP Controlled (<130/80) BP Controlled (<130/80) [facility] Start: 10-14-1983 Depression Screening Depression Screening [facility] Start: 10-14-1983 HIV SCREENING HIV SCREENING [facility] Start: 10-14-1983 HIV screening HIV Screening [facility] Start: 10-14-1983 zzBP Controlled (<130/80) (Retired) zzBP Controlled (<130/80) (Retired) [facility] Start: 10-14-1971 Pneumococcal vaccination [facility] Start: 1965 HEPATITIS B (1 of 3 - 3-dose series) HEPATITIS B (1 of 3 - 3-dose series) [facility] Start: 1965 Hepatitis B Vaccine (1 of 3 - 3-dose series) Hepatitis B Vaccine (1 of 3 - 3-dose series) [facility] 24 Hour ECG [facility] Work Phone: Basic metabolic 2008 panel with ionized calcium - Serum or Plasma [facility] End: 03-18-2024 ECG COMPLETE ECG COMPLETE ECG Routine Preop examination Presence of cardiac pacemaker Atrial fibrillation, unspecified type (HCC) 1 Occurrences starting 03/18/2023 until 03/18/2024 [facility] Work Phone: Comment on above: 1 Occurrences starting 03/18/2023 until 03/18/2024 End: 06-01-2025 Echocardiography ECHO [facility]iology [facility]DA Persistent atrial fibrillation (HCC) 1 Occurrences starting 06/01/2024 until 06/01/2025 [facility] Comment on above: 1 Occurrences starting 06/01/2024 until 06/01/2025 Ephys evl trnsptl tx atrial fib isolat pulm vein COMPLETE EPS W/PVI ABL W/WO 3D MAP ICE Tachy-bradley syndrome (HCC) Bradycardia Persistent atrial fibrillation (HCC) Presence of cardiac pacemaker [facility] Ephys evl trnsptl tx atrial fib isolat pulm vein COMPRE EP EVAL ABLTJ ATR FIB PULM VEIN ISOLATION prison current use of anticoagulant therapy Status post catheter ablation of atrial fibrillation Persistent atrial fibrillation (HCC) [facility] Patient Education [facility] Work Phone: Patient referral [facility] Work Phone: Troponin T.cardiac [Mass/volume] in Serum or Plasma by High sensitivity method [facility] UA DIP B/O UA DIP B/O Lab R outine Blood in semen Ordered: 11/28/2022 [facility] Work Phone: Comment on above: Ordered: 11/28/2022 End: 07-01-2025 US Lower extremity vein - bilateral US DVT LOWER BILATERAL Radiology AMANDA Chronic congestive heart failure, unspecified heart failure type (HCC) Swelling of lower extremity 1 Occurrences starting 06/01/2024 until 07/01/2025 [facility] Work Phone: Comment on above: 1 Occurrences starting 06/01/2024 until 07/01/2025 End: 04-08-2024 XR ABDOMEN 1V SUPINE XR ABDOMEN 1V SUPINE Radiology Routine Kidney stone 1 Occurrences starting 03/10/2023 until 04/08/2024 [facility] Work Phone: Comment on above: 1 Occurrences starting 03/10/2023 until 04/08/2024 XR ABDOMEN 1V SUPINE XR ABDOMEN 1V SUPINE Radiology Routine Kidney stone 03/10/2023 11:16 AM EST [facility] Work Phone: End: 04-22-2024 XR ABDOMEN 1V SUPINE XR ABDOMEN 1V SUPINE Radiology Routine Kidney stone 1 Occurrences starting 03/24/2023 until 04/22/2024 [facility] Work Phone: Comment on above: 1 Occurrences starting 03/24/2023 until 04/22/2024 End: 09-12-2024 XR Chest PA and Lateral XR CHEST 2V FRONTAL/LAT Radiology STAT Bacterial pneumonia 1 Occurrences starting 08/14/2023 until 09/12/2024 [facility] Work Phone: Comment on above: 1 Occurrences starting 08/14/2023 until 09/12/2024 [facility] Immunizations Immunization Date Immunization Notes Care Provider Fa cili 06-12-2022 tetanus toxoid, reduced diphtheria toxoid, and acellular pertussis vaccine, adsorbed Bharat Coronado MD Work Phone: [facility] 02-03-2021 tetanus toxoid, reduced diphtheria toxoid, and acellular pertussis vaccine, adsorbed Bharat Coronado MD Work Phone: [facility] 08-10-2020 Covid (Pfizer) Dr. Bharat berg Work Phone: [facility] 07-17-2020 Covid (Pfizer) Dr. Bharat berg Work Phone: [facility] Payers Date Payer Category Payer Self-pay [id number] 2022 Private Health Insurance AULTCAR E [id number] 2020 Unknown AUJUNAID Castellanos PPO [id number] 2020-Present [phone] [facility] [id number] [place] [address] PPO [id number] [id number] 2020 Unknown [id number] 1.13.159. 2.7.3.347542.315 2014 Unknown [id number] 1965 Unknown [id number] 2.16.840.1.264662.3.579. 2.651 1965 Unknown [id number] 2.16.840.1.936588.3.579. 2.651 Unknown [id number] 2.16.840.1.736779.3.579. 2.462 Unknown [id number] 2.16.840.1.633188.3.579. 2.462 Unknown [id number] 2.16.840.1.067271.3.579. 2.462 Unknown [id number] 2.16.840.1.670005.3.579. 2.462 Unknown [id number] 2.16.840.1.645883.3.579. 2.462 Unknown [id number] 2.16.840.1.733463.3.579. 2.462 Unknown [id number] 2.16.840.1.092738.3.579. 2.462 Unknown [id number] 2.16.840.1.461034.3.579. 2.462 Unknown [id number] 2.16.840.1.956828.3.579. 2.462 Unknown [id number] 2.16.840.1.275074.3.579. 2.462 Unknown [id number] 2.16.840.1.040975.3.579. 2.462 Unknown [id number] 2.16.840.1.999442.3.579. 2.462 Unknown [id number] 2.16.840.1.525344.3.579. 2.462 Unknown [id number] 2.16.840.1.134336.3.579. 2.462 Unknown [id number] 2.16.840.1.134720.3.579. 2.462 Unknown [id number] 2.16.840.1.249852.3.579. 2.462 Unknown [id number] 2.16.840.1.589575.3.579. 2.462 Unknown [id number] 2.16.840.1.930738.3.579. 2.462 Unknown [id number] 2.16.840.1.035727.3.579. 2.462 Unknown [id number] 2.16.840.1.612179.3.579. 2.462 Unknown [id number] 2.16.840.1.511395.3.579. 2.462 Unknown [id number] 2.16.840.1.919676.3.579. 2.462 Unknown [id number] 2.16.840.1.762413.3.579. 2.462 Unknown [id number] 2.16.840.1.514588.3.579. 2.462 Unknown [id number] 2.16.840.1.957515.3.579. 2.462 Unknown [id number] 2.16.840.1.847601.3.579. 2.462 Unknown [id number] 2.16.840.1.593175.3.579. 2.462 Unknown [id number] 2.16.840.1.649957.3.579. 2.462 Unknown [id number] 2.16.840.1.721751.3.579. 2.462 Unknown [id number] 2.16.840.1.635810.3.579. 2.462 Unknown [id number] 2.16.840.1.764387.3.579. 2.462 Unknown [id number] 2.16.840.1.003272.3.579. 2.462 Unknown [id number] 2.16.840.1.999270.3.579. 2.462 Unknown [id number] 2.16.840.1.810372.3.579. 2.462 Unknown [id number] 2.16.840.1.498255.3.579. 2.462 Unknown [id number] 2.16.840.1.195341.3.579. 2.462 Unknown [id number] 2.16840.1.823790.3.579. 2.462 Worker's Compensation [id number] Social History Date Type Detail Facility Sex Assigned At [facility] Start: 02-13-2021 Ex-smoker (finding) [facility] Start: 02-15-2021 End: 09-20-2024 Tobacco smoking status NHIS Never smoked tobacco [facility] Start: 02-15-2021 End: 09-25-2022 Tobacco use and exposure Smokeless tobacco non-user [facility] Start: 06-27-2021 End: 12-27-2022 Alcohol intake Current drinker of alcohol (finding) [facility] Start: 02-15-2021 History SDOH Alcohol Comment Rare alcohol usage [facility] Start: 1965 Sex Assigned At Not on file C [facility] Start: 11-26-2021 End: 08-19-2023 Tobacco smoking status NCIS Unknown if ever smoked [facility] Start: 1965 Sex Assigned At Male W [facility] Start: 10-29-2022 End: 01-27-2024 History of Social function [facility] Work Phone: Start: 10-29-2022 End: 01-27-2024 Tobacco use panel [facility] Work Phone: Start: 03-15-2012 Adult Depression Screening Assessment 0 [facility] Work Phone: Start: 01-28-2023 End: 12-09-2024 Alcohol intake Ex-drinker (finding) [facility] Start: 03-18-2023 Gender identity Identifies as male gender (finding) [facility] Start: 03-18-2023 Sexual orientation Heterosexual (fin ding) [facility] Start: 08-06-2023 Alcohol Comment few times a month [facility] Has the electric, gas, oil, or water company threatened to shut off services in your home in past 12Mo No [facility] (I/We) worried whether (my/our) food would run out before (I/we) got money to buy more. Never true [facility] Start: 07-04-2024 End: 07-15-2024 Sex Male (finding) [facility] Tobacco Use: Tobacco Use: ; N ever smoker. [facility]. NEGATED: Highlighted rowStart: 02-17-2020 End: 02-17-2020 Alcohol intake Alcohol intake [facility] Work Phone: NEGATED: Highlighted rowStart: 02-17-2020 End: 02-17-2020 Alcohol use Alcohol use [facility] Work Phone: NEGATED: Highlighted rowStart: 02-17-2020 End: 02-17-2020 Details of drug misuse behavior Details of drug misuse behavior [facility] Work Phone: NEGATED: Highlighted rowStart: 02-17-2020 End: 02-17-2020 Employment detail Employment detail [facility] Work Phone: NEGATED: Highlighted rowStart: 02-17-2020 End: 02-17-2020 Assertion Never smoker [facility] Work Phone: Medical Equipment Procedure [...] 02-05-2021 FDA Start: 02-05-2021 FDA Start: 02-05-2021 ([id number]) Endocardial paci ng lead ()[id number] FDA Start: 05-10-2022 ([id number]) Endocardial paci ng lead ()[id number] FDA Start: 05-10-2022 ([id number]) Dual-chamber implantable pacemaker, rate-responsive ()[id number] FDA Start: 05-10-2022 Use as directed for testosterone injection [id number] Start: 07-08-2024 Drug-eluting cor onary artery stent, fig-rlhzuhpqrhvvz-hmew jerri-coated ()[id number] FDA Start: 08-20-2023 [id number] [id number] Start: 05-10-2022 [id number] 2088tc Te ndril Sts [id number] Start: 05-10-2022 [id number] Assurity Mri [id number] Start: 05-10-2022 Use with blood g lucose test once daily [id number] Start: 12-09-2024 Use with blood g lucose test once daily [id number] Start: 12-09-2024 Use as directed for testosterone injection [id number] Start: 11-18-2024 Goals Date Patient Goal Desired Activity /State Personal health goal Functional Status Date Assessment Result Facility 2024 Are you deaf, or do you have serious difficulty hearing No 2024 10:47 AM Jeannette Hernandez RN No [facility] 2024 Are you blind, or do you have serious difficulty seeing, even when wearing glasses No 2024 10:47 AM Jeannette Hernandez RN No [facility] 2024 Do you have serious difficulty walking or climbing stairs No 2024 10:47 AM Jeannette Hernandez RN No [facility] 2024 Do you have difficul ty dressing or bathing No 2024 10:47 AM Jeannette Hernandez RN No [facility] 2024 Because of a physica l, mental, or emotional condition, do you have difficulty doing errands alone such as visiting a physician's office or shopping No 2024 10:47 AM Jeannette Hernandez RN No [facility] 01-28-2024 Are you deaf, or do you have serious difficulty hearing No 01/28/2024 2:50 PM Floridalma Santamaria RN No [facility] 01-28-2024 Are you blind, or do you have serious difficulty seeing, even when wearing glasses No 01/28/2024 2:50 PM Floridalma Santamaria RN No [facility] 01-28-2024 Do you have serious difficulty walking or climbing stairs No 01/28/2024 2:50 PM Floridalma Santamaria RN No [facility] 01-28-2024 Do you have difficul ty dressing or bathing No 01/28/2024 2:50 PM Floridalma Santamaria RN No [facility] 01-28-2024 Because of a physica l, mental, or emotional condition, do you have difficulty doing errands alone such as visiting a physician's office or shopping No 01/28/2024 2:50 PM Floridalma Santamaria RN No [facility] 08-20-2023 Functional status Ambulates;Bath room Privilege [facility] Work Phone: 08-02-2023 Functional status Ambulates;Up ad sahra [facility] Work Phone: 05-11-2022 Functional status Ambulates;Bath room Privilege [facility] Work Phone: 12-15-2021 Functional status Up ad sahra [facility] Work Phone: Mental Status Date Assessment Result Facility 2024 Because of a physica l, mental, or emotional condition, do you have serious difficulty concentrating, remembering, or making decisions No 2024 10:47 AM Jeannette Hernandez, ANNE No [facility] 09-20-2024 Cognitive function Voice/Name [facility] Work Phone: 07-15-2024 Cognitive function Voice/Name [facility] Work Phone: 07-04-2024 Cognitive function Awake;Alert;Appropriat e [facility] Work Phone: 05-10-2024 Cognitive function Awake;Alert;A ppropriate; Follows Commands [facility] Work Phone: 03-30-2024 Cognitive function Awake;Alert;A ppropriate; Follows [facility] Work Phone: 01-28-2024 Because of a physica l, mental, or emotional condition, do you have serious difficulty concentrating, remembering, or making decisions No 01/28/2024 2:50 PM Floridalma Santamaria, ANNE No [facility] 08-20-2023 Cognitive function Voice/Name [facility] [place] Work Phone: 08-02-2023 Cognitive function Voice/Name [facility] [place] Work Phone: 05-11-2022 Cognitive function Voice/Name [facility] [place] Work Phone: 12-14-2021 Cognitive function Voice/Name [facility] [place] Work Phone: Clinical Notes 12-02-2008 to 12-14-2024 Telephone Encounter - Marissa Jacobsen LPN - 12/14/2024 2:04 PM EDTTelephone Encounter - Marissa Jacobsen LPN - 12/14/2024 2:04 PM EDTTelephone Encounter - Lani Edwards LPN - 12/10/2024 8:19 AM EDT Note Date & Type Note Facility 12-14-2024 Telephone encounter Note Patient notified and verbalized understanding. Marissa Jacobsen LPN [facility] 12-14-2024 Miscellaneous Notes Patient notified and verbalized understanding. Marissa Jacobsen LPN Left message to return call. Let patient know that Dr. Coronado wants to keep his testosterone the same. He only goes by the total testosterone as well. Thanks. Nandini Flores PA-C documented in this encounter [facility] 12-10-2024 Telephone encounter Note Left message to return call. [facility] 12-10-2024 Telephone encounter Note Let patient know that Dr. Coronado wants to keep his testosterone the same. He only goes by the total testosterone as well. Thanks. Nandini Flores PA-C [facility] 12-09-2024 Note HNO ID: [id number] Author: NANDINI FLORES PA-C Service: ? Author Type: Physician Creping Machine Operator Type: Progress Notes Filed: 12/09/2024 12:46 Note Text: Chief Complaint Patient presents with: Established Patient Diabetes HPI Bharat Finch is a 59 year old male who presents here today for recheck. Diabetes Mellitus: - patient was diagnosed on 11/21. - Recent A1c was 8.4%. - Goal A1c is <7%. - Initiated on metformin 500 mg BID on 11/21. - Bharat reports improvement in blood glucose levels since starting metformin. - Initially recorded blood glucose levels in the 150s-200s; now reports levels in the 120s-130s. - Occasionally forgets to take the evening dose of metformin. - Denies any side effects from metformin. - Drinks soda throughout the day. - Diet described as not bad overall. - has been diabetic for 25 years and is assisting with management. Hypogonadism: - On testosterone injections every other Friday. - Last injection was this past Friday. - Recent labs showed normal total testosterone but elevated free testosterone per lab values range. Past medical history, appointments, medications, allergies reviewed. 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 S/p CABG x3v 12/02/2008; stents 10/26/2018 Atrial fibrillation (HCC) Awareness under anesthesia Blood in semen 2022 CHF (congestive heart failure) (HCC) Coronary artery disease Diabetic acidoses, type II (HCC) 11/2024 Dyspnea on exertion Erectile dysfunction Essential hypertension History of cardioversion History of coronary artery bypass surgery 12/02/2008 History of coronary artery stent placement 08/19/2023 PCI-KAREN-OM2 w/ 2.5 x 16 mm Synergy and KAREN-Sequential SVG-OM2 and LPDA w/ 4.0 x 12 mm Synergy Stent 10/26/18, KAREN Mid SVG to OM using Clio Kinney 3.0x15 mm 08/19/23 HLD (hyperlipidemia) 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 09/10/2023 Nonsustained paroxysmal ventricular tachycardia (HCC) ALICIA treated with BiPAP complaint Pacemaker 04/2022 for bradley/SSS [facility] [phone] PAF (paroxysmal atrial fibrillation) (HCC) Palpitations Persistent atrial fibrillation (HCC) 02/27/2022 Presence of cardiac pacemaker 06/07/2022 S/P CABG x 3 Sick sinus syndrome (HCC) Status post catheter ablation of atrial fibrillation balloon catheter cryoablation/PVAI for atrial fibrillation 11/12/2023 Tachy-bradley syndrome (HCC) Previous Surgical History PAST SURGICAL HISTORY Procedure Laterality Date AFIB ABLATION/PULM VEIN ISOLATION 11/12/2023 cryoballoon catheter ablation/PVAI; very challenging PVs anatomy (see report) [facility] Dr. Hughes AFIB ABLATION/PULM VEIN ISOLATION 10/12/2024 PFA PVI; Dr. Mendoza at [facility] BASIC PACEMAKER DUAL CHAMBER Left 05/10/2022 SJM/Ulloa dual-chamber pacemaker system; [facility], Dr. Enriquez CABG (3) VEIN GRAFTS AND ARTERIAL GRAFT(S) 12/02/2008 CABG x3v SHEIKH-D2, Sequential SVG-LPDA and OM2 CARDIOVERSION EXTERNAL ELECTIVE 05/10/2024 CARDIOVERSION, ELECTIVE, ELECTRICAL 09/04/2023 [facility] ER CARDIOVERSION, ELECTIVE, ELECTRICAL 10/22/2023 CARDIOVERSION, ELECTIVE, ELECTRICAL 02/2024 CARDIOVERSION, ELECTIVE, ELECTRICAL 01/27/2024 CARDIOVERSION, ELECTIVE, ELECTRICAL 07/04/2024 [facility] CARDIOVERSION, ELECTIVE, ELECTRICAL 07/15/2024 [facility] LEFT HEART CATH,PERCUTANEOUS 10/26/2018 LEFT HEART CATH,PERCUTANEOUS LEFT HEART CATH,PERCUTANEOUS 08/16/2024 [facility]; see scanned documents PAST SURGICAL HISTORY OF N/A 02/05/2021 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ST SURGICAL HIST[facility] OF Left 05/24/2022 Tear duct surgery for left eye PCI/STENT 2018 PCI to KAREN-OM2 w/2.5x16mm synergy and KAREN-Sequential SVG-OM2 and LPDA w/ 4.0x12mm synergy stent PT [facility] 08/19/2023 REPAIR ROTATOR CUFF,ACUTE Left JOSE ALBERTO 12/14/2021 JOSE ALBERTO (TRANSESOPHAGEAL ECHO) 01/27/2024 TONSILLECTOMY AND ADENOIDECTOMY Family History FAMILY HISTORY Problem Relation Age of Onset Diabetes Mother Ischemic Heart Disease Father Diabetes Father Cancer Father other (brain aneurysm rupture) Brother Patient Allergies ALLERGIES Allergen Reactions Chlorhexidine Rash Empagliflozin Other: See Comments Bad yeast infection Isopropyl Alcohol Itching Current Medications Current Outpatient Medications on File Prior to Visit Medication Sig metFORMIN (GLUCOPHAGE) 500 mg tablet Take 1 tablet by mouth two times a day. testosterone cypionate (DEPO-TESTOSTERONE) 200 mg/mL injection Inject 0.5 mL intramuscularly every 2 weeks for 168 days. Syringe with Needle, Disp, (SYRINGE 3CC/22GX1) 3 mL 22 gauge x 1 Use as directed for testosterone injection metoprolol succinate ER (TOPROL XL) 50 mg 24 hr tablet Take 1 tablet by mouth two times a day. potassium chlo (more content not included)... [facility] 12-09-2024 History of Presen t illness Narrative Chief Complaint Patient presents with: Established Patient Diabetes HPI Bharat Finch is a 59 year old male who presents here today for recheck. Diabetes Mellitus: - patient was diagnosed on 11/21. - Recent A1c was 8.4%. - Goal A1c is <7%. - Initiated on metformin 500 mg BID on 11/21. - Bharat reports improvement in blood glucose levels since starting metformin. - Initially recorded blood glucose levels in the 150s-200s; now reports levels in the 120s-130s. - Occasionally forgets to take the evening dose of metformin. - Denies any side effects from metformin. - Drinks soda throughout the day. - Diet described as not bad overall. - has been diabetic for 25 years and is assisting with management. Hypogonadism: - On testosterone injections every other Friday. - Last injection was this past Friday. - Recent labs showed normal total testosterone but elevated free testosterone per lab values range. Past medical history, appointments, medications, allergies reviewed. 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0x15 mm 08/19/23 HLD (hyperlipidemia) 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 male prison current use of anticoagulant therapy 09/10/2023 Nonsustained paroxysmal ventricular tachycardia (HCC) ALICIA treated with BiPAP complaint Pacemaker 04/2022 for bradley/SSS [facility] [phone] PAF (paroxysmal atrial fibrillation) (HCC) Palpitations Persistent atrial fibrillation (HCC) 02/27/2022 Presence of cardiac pacemaker 06/07/2022 S/P CABG x 3 Sick sinus syndrome (HCC) Status post catheter ablation of atrial fibrillation balloon catheter cryoablation/PVAI for atrial fibrillation 11/12/2023 Tachy-bradley syndrome (HCC) Previous Surgical History PAST SURGICAL HISTORY Procedure Laterality Date AFIB ABLATION/PULM VEIN ISOLATION 11/12/2023 cryoballoon catheter ablation/PVAI; very challenging PVs anatomy (see report) [facility] Dr. Hughes AFIB ABLATION/PULM VEIN ISOLATION 10/12/2024 PFA PVI; Dr. Mendoza at [facility] BASIC PACEMAKER DUAL CHAMBER Left 05/10/2022 SJM/Ulloa dual-chamber pacemaker system; [facility], Dr. Enriquez CABG (3) VEIN GRAFTS & ARTERIAL GRAFT(S) 12/02/2008 CABG x3v SHEIKH-D2, Sequential SVG-LPDA and OM2 CARDIOVERSION EXTERNAL ELECTIVE 05/10/2024 CARDIOVERSION, ELECTIVE, ELECTRICAL 09/04/2023 [facility] ER CARDIOVERSION, ELECTIVE, ELECTRICAL 10/22/2023 CARDIOVERSION, ELECTIVE, ELECTRICAL 02/2024 CARDIOVERSION, ELECTIVE, ELECTRICAL 01/27/2024 CARDIOVERSION, ELECTIVE, ELECTRICAL 07/04/2024 [facility] CARDIOVERSION, ELECTIVE, ELECTRICAL 07/15/2024 [facility] LEFT HEART CATH,PERCUTANEOUS 10/26/2018 LEFT HEART CATH,PERCUTANEOUS LEFT HEART CATH,PERCUTANEOUS 08/16/2024 [facility]; see scanned documents PAST SURGICAL HISTORY OF N/A 02/05/2021 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 [facility] plates [facility] [place] PAST SURGICAL HISTORY OF Left 05/24/2022 Tear duct surgery for left eye PCI/STENT 2018 PCI to KAREN-OM2 w/2.5x16mm synergy and KAREN-Sequential SVG-OM2 and LPDA w/ 4.0x12mm synergy stent PT [facility] 08/19/2023 REPAIR ROTATOR CUFF,ACUTE Left JOSE ALBERTO 12/14/2021 JOSE ALBERTO (TRANSESOPHAGEAL ECHO) 01/27/2024 TONSILLECTOMY & ADENOIDECTOMY <AGE 12 Family History FAMILY HISTORY Problem Relation Age of Onset Diabetes Mother Ischemic Heart Disease Father Diabetes Father Cancer Father other (brain aneurysm rupture) Brother Patient Allergies ALLERGIES Allergen Reactions Chlorhexidine Rash Empagliflozin Other: See Comments Bad yeast infection Isopropyl Alcohol Itching Current Medications Current Outpatient Medications on File Prior to Visit Medication Sig metFORMIN (GLUCOPHAGE) 500 mg tablet Take 1 tablet by mouth two times a day. testosterone cypionate (DEPO-TESTOSTERONE) 200 mg/mL injection Inject 0.5 mL intramuscularly every 2 weeks for 168 days. Syringe with Needle, Disp, (SYRINGE 3CC/22GX1) 3 mL 22 gauge x 1 Use as directed for testosterone injection metoprolol succinate ER (TOPROL XL) 50 mg 24 hr tablet Take 1 tablet by mouth two times a day. potassium chloride ER (KLOR-CON) 20 mEq tablet Take 1 tablet by mouth two times a day. Patient should start on October 14, 2024. Syringe with Needle, Disp, 3 mL 23 x 1 Use as directed with testosterone injection clopidogrel (PLAVIX) 75 mg tablet lisinopril (ZESTRIL) 5 mg tablet once daily. fluticasone (FLONASE) 50 mcg/actuation nasal spray Use 2 Sprays in each nostril once daily. Rinse mouth after use. atorvastatin (LIPITOR) 40 mg tablet Take 40 mg by mouth daily at bedtime. ELIQUIS 5 mg tab(s) Take 1 tablet by mouth every 12 hours 6am/6pm. tiZANidine (ZANAFLEX) 4 mg tablet Take 4 mg by mouth once daily as needed (muscle spasm). HYDROcodone-acetaminophen (NORCO) 5-325 mg per tablet Take 1 tablet by mouth twice daily as needed. furosemide (LASIX) 40 mg tablet Take 1 tablet by mouth two times a day. No current facility-administered medications on file prior to visit. Social History SOCIAL HISTORY[1] Review of Symptoms REVIEW OF SYSTEMS SEE HPI EXAM: BP 116/62 Pulse 60 Resp 18 Wt 115.7 kg (255 lb) SpO2 97% BMI 37.66 kg/m General Appearance: Well appearing, alert, in no acute distress, well-hydrated, well nourished. and Obese. Health Maintenance List Colorectal Cancer Screening due on 11/18/2025 HIV Screening due on 11/18/2025 Shingrix Vaccine(1 of 2) due on 11/18/2025 Pneumococcal Vaccine: 50+(1 of 2 - PCV) due on 11/18/2025 Influenza Vaccine(1) due on 12/13/2024 LDL Cholesterol due on 11/18/2025 Depression Screening due on 11/18/2025 Anxiety Screening due on 11/18/2025 Annual PCP Team Chronic Disease Visit due on 12/09/2025 Diabetes Screening due on 11/19/2027 Prostate Cancer Screening Discussion due on 11/29/2027 Lipid Screening due on 11/18/2029 DTaP,Tdap,Td Vaccine(3 - Td or Tdap) due on 06/12/2032 Hepatitis C Screening Completed Data reviewed Latest Ref Rng 11/18/2024 WBC 3.70 - 11.00 k/uL 8.30 RBC 4.20 - 6.00 m/uL 4.99 Hemoglobin 13.0 - 17.0 g/dL 15.4 Hematocrit 39.0 - 51.0 % 47.0 MCV 80.0 - 100.0 fL 94.2 MCH 26.0 - 34.0 pg 30.9 MCHC 30.5 - 36.0 g/dL 32.8 RDW-CV 11.5 - 15.0 % 12.7 Platelet Count 150 - 400 k/uL 179 MPV 9.0 - 12.7 fL 10.7 Neut% % 62.4 Abs Neut (ANC) 1.45 - 7.50 k/uL 5.19 Lymph% % 18.7 Abs Lymph 1.00 - 4.00 k/uL 1.55 [place]% % 14.1 Abs [place] <0.87 k/uL 1.17 (H) Eosin% % 3.3 Abs Eosin <0.46 k/uL 0.27 Baso% % 1.1 Abs Baso <0.11 k/uL 0.09 Immature Gran % % 0.4 IMMATURE GRANS (ABS) <0.10 k/uL 0.03 NRBC /100 WBC 0.0 Absolute nRBC <0.01 k/uL <0.01 DTYPE Auto Protein, Total 6.3 - 8.0 g/dL 7.2 Albumin 3.9 - 4.9 g/dL 4.4 Calcium 8.5 - 10.2 mg/dL 10.0 Bilirubin, Total 0.2 - 1.3 mg/dL 0.6 Alkaline Phosphatase 38 - 113 U/L 90 AST 14 - 40 U/L 30 ALT 10 - 54 U/L 19 Glucose 74 - 99 mg/dL 148 (H) BUN 9 - 24 mg/dL 18 Creatinine 0.73 - 1.22 mg/dL 1.23 (H) Sodium 136 - 144 mmol/L 137 Potassium 3.7 - 5.1 mmol/L 4.4 Chloride 98 - 107 mmol/L 99 CO2 22 - 30 mmol/L 24 Anion Gap 8 - 15 mmol/L 14 eGFR >=60 mL/min/1.73m 68 Total Cholesterol, Nonfasting <200 mg/dL 127 Triglycerides, Nonfasting <150 mg/dL 76 HDL Cholesterol, Nonfasting >39 mg/dL 35 (L) LDL Cholesterol Calculated, Nonfasting <100 mg/dL 77 Non HDL Cholesterol, Nonfasting <130 mg/dL 92 VLDL Cholesterol, Nonfasting <30 mg/dL 12 Total Chol/HDL Ratio, Nonfasting <5.10 mg/dL 3.63 LDL/HDL Ratio, Nonfasting <2.54 mg/dL 2.20 Hemoglobin A1C 4.3 - 5.6 % 8.4 (H) Estimated Average Glucose mg/dL 194 Testosterone, Total by MS 240.0 - 950.0 ng/dL 839.9 Testosterone, Free by ED-MS 1.55 - 6.78 ng/dL 16.71 (H) Legend: (H) High (L) Low Assessment and Plan 1. Type 2 diabetes mellitus without complication, without long-term current use of insulin (HCC) (E11.9) - Recent diagnosis with HbA1c of 8.4%; home glucose readings show improvement since starting metformin. - Continue metformin 500 mg BID. - Discussed option to switch to metformin XR 1000 mg QAM for improved adherence; patient elected to continue current regimen. - Discussed alternative medication options, including GLP-1 agonists, with explanation of potential benefits (weight loss, cardiac and renal protection) and insurance requirements. - Provided education on diabetes management, including blood glucose monitoring (recommended once daily, rotating fasting, postprandial, and evening checks), and dietary guidance. - Ordered glucometer and test strips. - Declined referral to conservation educator or dietitian at this time. - Follow-up in 3-4 months with repeat HbA1c prior to visit. 2. Hypogonadism in male (E29.1) - Recent labs: total testosterone within normal range, free testosterone borderline elevated. - Testosterone managed by PCP; no changes to current regimen recommended at this time. Will reach out to PCP team. - Repeat testosterone labs prior to next follow-up. Nandini Flores PA-C Recording using [employer] software for draft documentation of the visit was discussed with the patient/authorized service center representative; all questions welcomed and answered. Patient/authorized service center representative agreed to proceed [1] Social History Tobacco Use Smoking status: Never Smokeless tobacco: Never Vaping Use Vaping status: Never Used Substance Use Topics Alcohol use: Not Currently Comment: few times a month Drug use: Not Currently Types: Marijuana documented in this encounter [facility] 11-22-2024 Evaluation note Diagnosis Onset Date Resolution Obesity chronic November 22, 2024 8:17am ALICIA (obstructive sleep apnea) chronic November 22, 2024 8:17am Edema acute November 24, 2024 8:05am Essential hypertension chronic November 24, 2024 8:05am H/O coronary artery bypass surgery December 02, 2008 chronic November 24, 2024 8:05am History of coronary artery stent placement August 19, 2023 chronic November 24, 2024 8:05am HLD (hyperlipidemia) chronic November 24, 2024 8:05am PAF (paroxysmal atrial fibrillation) chronic November 24, 2024 8:05am S/P cardiac pacemaker procedure chronic November 24, 2024 8:05am ALICIA treated with BiPAP deleted November 24, 2024 8:05am [facility] Work Phone: [phone]) 146-208008-07-2025 NoteHNO ID: [id number] Author: LISSY BAR LPN Service: ? Author Type: LICENSED NURSE Type: Progress Notes Filed: 11/18/2024 14:11 Note Text: Ambulatory Ear Lavage Pre-treatment: No pre-treatment Treatment: Both ears Equipment and Irrigation solution and Volume used: Single use syringe with single use irrigation tip Water Return flow appearance: Brown Patient tolerated procedure: yes Tympanic membrane assessment: Tympanic membrane assessed by [facility] NoteHNO ID: [id number] Author: LISSY BAR LPN Service: ? Author Type: LICENSED NURSE Type: Progress Notes Filed: 11/18/2024 14:11 Note Text: Chief Complaint Patient presents with: lab work: Pt requesting lab orders to check testosterone level HPI Bharat Finch is a 59 year old male who presents here today for Chronic Medical Conditions.. Patient was scheduled for Physical, however he declines to do a physical today. Patient with hx of hypogonadism, ED, chronic pain-seeing pain management, a.fib, CAD, HTN, CHF- seeing cardiology. Routine Visit: - No significant medical or surgical history except for recent AFib ablation ~1.5 months ago. - No abnormal weight loss, fevers, fatigue, or weakness. - Denies swelling or lumps in the neck, cough, wheezing, dyspnea, chest pain, palpitations, headaches, numbness, tingling, seizures, or tremors. - Denies tobacco and alcohol use. - Declines HIV screening, shingles vaccine, and colon cancer screening at this time. Atrial Fibrillation: - Recent AFib ablation ~1.5 months ago. - has upcoming cardiology follow up scheduled. Ear Cleaning: - Bilateral ear clogging, worse on the left side, x1 month. - Last ear cleaning was ~2 years ago. Testosterone Therapy: - Switched from testosterone gel to injections due to availability issues at [facility]. - administers injections; reports minimal discomfort. - No issues noted with the current therapy; desires lab work to confirm efficacy. - Due for a refill on testosterone injections. Edema: - Bilateral leg swelling, more pronounced on the left side. - Swelling is variable, with no identified pattern or cause. Past medical history, appointments, medications, allergies reviewed. 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 S/p CABG x3v 12/02/2008; stents 10/26/2018 Atrial fibrillation (HCC) Awareness under anesthesia Blood in semen 2022 CHF (congestive heart failure) (HCC) Coronary artery disease Dyspnea on exertion Erectile dysfunction Essential hypertension History of cardioversion History of coronary artery bypass surgery 12/02/2008 History of coronary artery stent placement 08/19/2023 PCI-KAREN-OM2 w/ 2.5 x 16 mm Synergy and KAREN-Sequential SVG-OM2 and LPDA w/ 4.0 x 12 mm Synergy Stent 10/26/18, KAREN Mid SVG to OM using Uche Kinney 3.0x15 mm 08/19/23 HLD (hyperlipidemia) 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 09/10/2023 Nonsustained paroxysmal ventricular tachycardia (HCC) ALICIA treated with BiPAP complaint Pacemaker 04/2022 for bradley/SSS [facility] [phone] PAF (paroxysmal atrial fibrillation) (HCC) Palpitations Persistent atrial fibrillation (HCC) 02/27/2022 Presence of cardiac pacemaker 06/07/2022 S/P CABG x 3 Sick sinus syndrome (HCC) Status post catheter ablation of atrial fibrillation balloon catheter cryoablation/PVAI for atrial fibrillation 11/12/2023 Tachy-bradley syndrome (HCC) Previous Surgical History PAST SURGICAL HISTORY Procedure Laterality Date AFIB ABLATION/PULM VEIN ISOLATION 11/12/2023 cryoballoon catheter ablation/PVAI; very challenging PVs anatomy (see report) [facility] Dr. Hughes AFIB ABLATION/PULM VEIN ISOLATION 10/12/2024 PFA PVI; Dr. Mendoza at [facility] BASIC PACEMAKER DUAL CHAMBER Left 05/10/2022 SJM/Ulloa dual-chamber pacemaker system; [facility], Dr. Enriquez CABG (3) VEIN GRAFTS AND ARTERIAL GRAFT(S) 12/02/2008 CABG x3v SHEIKH-D2, Sequential SVG-LPDA and OM2 CARDIOVERSION EXTERNAL ELECTIVE 05/10/2024 CARDIOVERSION, ELECTIVE, ELECTRICAL 09/04/2023 [facility] ER CARDIOVERSION, ELECTIVE, ELECTRICAL 10/22/2023 CARDIOVERSION, ELECTIVE, ELECTRICAL 02/2024 CARDIOVERSION, ELECTIVE, ELECTRICAL 01/27/2024 CARDIOVERSION, ELECTIVE, ELECTRICAL 07/04/2024 [facility] CARDIOVERSION, ELECTIVE, ELECTRICAL 07/15/2024 [facility] LEFT HEART CATH,PERCUTANEOUS 10/26/2018 LEFT HEART CATH,PERCUTANEOUS LEFT HEART CATH,PERCUTANEOUS 08/16/2024 [facility]; see scanned documents PAST SURGICAL HISTORY OF N/A 02/05/2021 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 [facility] [place] PAST SURGICAL HISTORY OF Left 05/24/2022 Tear duct surgery for left eye PCI/STENT 2018 PCI to KAREN-OM2 w/2.5x16mm synergy and KAREN-Sequential SVG-OM2 and LPDA w/ 4.0x12mm synergy stent PT [facility] 08/19/2023 REPAIR ROTATOR CUFF,ACUTE Left JOSE ALBERTO 12/14/2021 JOSE ALBERTO (TRANSESOPHAGEAL ECHO) 01/27/2024 TONSILLECTOMY AND ADENOIDECTOMY Family History FAMILY HISTORY Problem Relation Age of Onset Diabetes Mother Ischemic Heart Disease Father Diabetes Father Cancer Father other (brain aneurysm rupture) Brother Patient Allergies ALLERGIES Allergen Reactions Chlorhexidine Rash Empagliflozin Other: See Comments Bad yeast infection Isopropyl Alcohol Itching (more content not included)...[facility]07-09-[facility]25 Telephone encounter Note* Telephone Encounter - Juan Ugarte - 10/20/2024 10:47 AM EDT Post PVAI orders pended for signature [facility]07-09-2025 Miscellaneous Notes* Telephone Encounter - Juan Ugarte - 10/20/2024 10:47 AM EDT Post PVAI orders pended for signature [facility]25 NoteHNO ID: [id number] Author: YASMANI LEWIS APRN.FISHING HAND Service: Anesthesiology Author Type: Nurse Manager [employer] Type: Anesthesia Procedure Notes Filed: 10/12/2024 14:06 Note Text: ANESTHESIOLOGY PROCEDURE NOTE Airway General Information Procedure Start Time/Medication Administration: 10/12/2024 1:47 PM Procedure End Time: 10/12/2024 1:48 PM Patient location during procedure: OR Timeout Performed Pre-procedure: timeout performed Consent Obtained: Yes Patient identity confirmed: arm band Staffing FISHING HAND: Yasmani Lewis APRN.FISHING HAND Performed by: SHAKILA Indications and Patient Condition Indications for airway management: anesthesia Preoxygenated: yes anesthesia circuit Patient position: sniffing Method: asleep Cricoid Pressure: No Manual In-Line Stabilization: No Difficult Mask: No Final Airway Details Final airway type: endotracheal airway Final Endotracheal Airway: ETT Successful intubation technique: video laryngoscopy Devices used: intubating stylet and [place] Endotracheal tube insertion site: oral Blade size: #4 ETT size (mm): 7.5 Measured from: lips Measurement (cm): 22 Placement verified by: chest auscultation and capnometry Cormack-Lehane Classification: grade IIa - partial view of glottis Number of attempts at approach: 1 Failed airway: no Unrecognized esophageal intubation: no Airway not difficult SIGNATURE: Yasmani Lewis APRN.FISHING HAND PATIENT NAME: Bharat Finch DATE: October 12, 2024 TIME: 2:05 PM [id number] Tele[facility] encounter Note* Telephone Encounter - Margarette Frias LPN - 09/27/2024 12:23 PM EDT Mr. Morgan spouse is calling in asking if Davonte Augustin APRN would be able to call patient and spouseto review information form upcoming procedure with Dr. Mendoza on 10/12/2024. Margarette Frias LPN [facility]06-16-2025 Miscellaneous Notes* Telephone Encounter - Margarette Frias LPN - 09/27/2024 12:23 PM EDT Mr. Morgan spouse is calling in asking if Davonte Augustin APRN would be able to call patient and spouseto review information form upcoming procedure with Dr. Mendoza on 10/12/2024. Margarette Frias LPN [facility] encounter[facility]06-12-2025 Telephone encounter Note * Telephone Encounter - Tyesha Garcia RN - 09/23/2024 9:[address] Enriquez's 09/20/24 office visit note scanned into [employer] for your review. Tyesha Garcia RN [facility]06-12-2025 Miscellaneous Notes* Telephone Encounter - Tyesha Garcia RN - 09/23/2024 9:[address] Enriquez's 09/20/24 office visit note scanned into [employer] for your review. Tyesha Garcia RN documented in [facility] encounterRegional [facility] Center06-11-2025 Telephone encounter Note * Telephone Encounter - Tyesha Garcia RN - 09/22/2024 3:45 PM EDT Mrs calls back to report pt will be out of town 09/30 and 10/01. She requests an alternative date. Tyesha Garcia RN [facility]06-11-2025 Miscellaneous Notes* Telephone Encounter - Tyesha Garcia RN - 09/22/2024 3:45 PM EDT Mrs calls back to report pt will be out of town 09/30 and 10/01. She requests an alternative date. Tyesha Garcia RN * Telephone Encounter - Tyesha Gacria RN - 09/22/2024 3:41 PM EDT Pt's name has been added to [facility]onzalez procedure board. Tyesha Garcia RN * Telephone Encounter - Juan Ugarte - 09/22/2024 3:36 PM EDT Patient is scheduled for a PVI Ablation on 09/[address] Mendoza (per ZHANNA). The hospital will call the day before between 2-5pm with your arrival time. You should not eat or drink after midnight the day before the procedure. 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 You should continue to take medications as prescribed the morning of the procedure with just a sip of water unless otherwise instructed. Spoke with Bharat Finch on September 22, 2024. Informed of instructions as stated above. Patient verbalized understanding. Juan Ugarte documented in [facility] encounterRegional [facility] Center06-11-2025 Telephone encounter Note * Telephone Encounter - Tyesha Garcia RN - 09/22/2024 3:41 PM EDT Pt's name has been added to [facility]onzalez procedure board. Tyesha Garcia RN [facility]06-11-2025 Telephone encounter Note* Telephone Encounter - Juan Ugarte - 09/22/2024 3:36 PM EDT Patient is scheduled for a PVI Ablation on 09/[address] Mendoza (per ZHANNA). The hospital will call the day before between 2-5pm with your arrival time. You should not eat or drink after midnight the day before the procedure. 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 You should continue to take medications as prescribed the morning of the procedure with just a sip of water unless otherwise instructed. Spoke with Bharat Finch on September 22, 2024. Informed of instructions as stated above. Patient verbalized understanding. Juan Ugarte [facility]06-10-2025 Telephone encounter Note* Telephone Encounter - Radha Hughes MD - 09/21/2024 2:13 PM EDT [facility] Juan, please see if he would accept an earlier procedure date with one of my partners. Radha Hughes MD September 21, 2024 2:13 PM [facility]06-10[facility]2025 Miscellaneous Notes* Telephone Encounter - Radha Hughes MD - 09/21/2024 2:13 PM EDT [facility] General Electrophysiology (EP) Juan, please see if he would accept an earlier procedure date with one of my partners. Radha Hughes MD September 21, 2024 2:13 PM * Telephone Encounter - Lani Walker RN - 09/21/2024 1:42 PM EDT called in to check on status of scheduling EP procedure. She reports pt has been more symptomatic - having increased pain and pressure in Rt arm and chest yesterday prior to cardioversion. Pt has required more frequent cardioversions - about every month. He was cardioverted at [facility] yesterday, and she asked them to send report to [facility]. He is currently in SR. Reviewed medication He has increased metoprolol succinate to 100 mg twice daily as advised at [facility]. Taking Plavix, Eliquis. Lasix is 80 mg q am, he occasionally takes 2nd dose at night prn. Pt has discontinued lisinopril. Lani Walker RN documented in this encounterRegional Medical Center06-10-2025 Telephone encounter Note * Telephone Encounter - Lani Walker RN - 09/21/2024 1:42 PM EDT called in to check on status of scheduling EP procedure. She reports pt has been more symptomatic - having increased pain and pressure in Rt arm and chest yesterday prior to cardioversion. Pt has required more frequent cardioversions - about every month. He was cardioverted at [facility] yesterday, and she asked them to send report to [facility]. He is currently in SR. Reviewed medication He has increased metoprolol succinate to 100 mg twice daily as advised at [facility]. Taking Plavix, Eliquis. Lasix is 80 mg q am, he occasionally takes 2nd dose at night prn. Pt has discontinued lisinopril. Lani Walker, RN [facility]06-09-2025 Radiology Diagnostic study note [facility] Imaging Services [address] [place] [address] Chest PA and Lateral MR#: [id number] Acct: [id number] Name: BHARAT FINCH Rep #: [id number] : 1965 M 58 From: Pet er Peer PCP: Dr. Bharat Coronado MD Status: RE G ER Study:Chest PA and Lateral Date of Exam: 09/20/24 Exam# [id number] Ordering Dr: Ariel Dunaway DO PROCEDURE: CHEST PA AND LATERAL 09/20/2024 REASON FOR EXAM: CHEST PAIN TECHNIQUE: Frontal and lateral views of the chest. COMPARISON: July 15, 2024 FINDINGS: Hardware: Implanted dual-chamber pacer. Sternal wires. EKG lead wires. Heart: Normal size. Mediastinum: Unremarkable. Lungs: Clear. Bones: No aggressive process. RAD/Chest PA and Lateral IMPRESSION: No acute process detected. [facility] CC: Dr. Ariel Bernard DO; Dr. Bharat Coronado MD ~ School Treasurer: Signed [facility]06-03-2025 NoteHNO ID: [id number] Author: ?, ?, ? Service: ? Author Type: LICENSED NURSE Type: Progress Notes Filed: 09/14/2024 12:47 Note Text: Patient presents with for Testosterone self-injection teaching. Brought medication and all supplies with them today. Reviewed over proper technique for hand hygiene, medication preparation, site preparation, administration, and disposal of supplies. Both and patient were able to complete teachback at this time with administering medication at this time. Patient tolerated well. Answered all questions presented. Patient alert and oriented. Spent 20 minutes with face to face education. Ivanna Caicedo [facility]06-03-2025 History of Present illness Narrative* IVANNA CAICEDO - 09/14/2024 12:43 PM EDT Patient presents with for Testosterone self-injection teaching. Brought medication and all supplies with them today. Reviewed over proper technique for hand hygiene, medication preparation, sitepreparation, administration, and disposal of supplies. Both and patient were able to complete teachback at this time with administering medication at this time. Patient tolerated well. Answered all questions presented. Patient alert and oriented. Spent 20 minutes with face to face education. Ivanna Caicedo LPN documented in this encounterRegional Medical Center05-14-2025 Telephone encounter Note * Telephone Encounter - Ginna Strickland RN - 08/25/2024 11:52 AM EDT Spouse returns call and reviews below. Appt change to 1230 pm is fine. Ginna Strickland RN [facility]05-14-2025 Miscellaneous Notes* Telephone Encounter - Ginna Strickland RN - 08/25/2024 11:52 AM EDT Spouse returns call and reviews below. Appt change to 1230 pm is fine. Ginna Strickland RN * Telephone Encounter - Ginna Strikcland RN - 08/25/2024 11:03 AM EDT Nurse visit on 09/14/2024 needs to be a 30 minute appointment for education. Cancelled appt at 11:45 am and rescheduled for 12:30 pm which is the next available slot for 30 min. Detailed message left for patient/spouse to notify and requested they contact facility to verify that appt is ok or if it needs re-scheduled. Ginna Strickland RN documented in this encounterRegional Medical Center05-14-2025 Telephone encounter Note * Telephone Encounter - Ginna Strickland RN - 08/25/2024 11:03 AM EDT Nurse visit on 09/14/2024 needs to be a 30 minute appointment for education. Cancelled appt at 11:45 am and rescheduled for 12:30 pm which is the next available slot for 30 min. Detailed message left for patient/spouse to notify and requested they contact facility to verify that appt is ok or if it needs re-scheduled. Ginna Strickland RN [facility]05-06-2025 Telephone encounter Note* Telephone Encounter - Tyesha Garcia RN - 08/17/2024 8:07 AM EDT 08/16/[address] report [address] Dr Enriquez scanned into [employer] for your review. Tyesha Garcia RN [facility]05-06-2025 Miscellaneous Notes* Telephone Encounter - Tyesha Garcia RN - 08/17/2024 8:07 AM EDT 08/16/[address] report [address] Dr Enriquez scanned into [employer] for your review. Tyesha Garcia RN documented in this encounterRegional Medical Center04-08-2025 Evaluation note* Diagnosis Onset Date Resolution Status Admit Date Essential hypertension chronic Ap ril 2024 10:49am H/O coronary artery bypass surgery December 02, 2008 chronic July 20 10:49am History of coronary artery stent placement August 19, 2023 chronic July 20, 2024 10:49am HLD (hyperlipidemia) chronic Apri l 2024 10:49am PAF (paroxysmal atrial fibrillation) chronic July 20, 2024 10:49am S/P cardiac pacemaker procedure chronic July 20, 2024 10:49am ALICIA treated with BiPAP deleted Ap ril 2024 10:49am Atrial fibrillation chronic July 21, 2024 7:55am Obesity chronic July 21 7:55am ALICIA (obstructive sleep apnea) chronic July 21, 2024 7:55am [facility] Work Phone: 1(910) 596-214204-03-2025 Radiology Diagnostic study note [facility] Imaging Services [address] [place] [address] Chest 1 View (Portable) MR#: [id number] Acct: [id number] Name: BHARAT FINCH Rep #: [id number] : 1965 M 58 From: Nehemiah Cabrera MD PCP: Dr. Bharat Coronado MD Status: RE G ER Study:Chest 1 View (Portable) Date of Exam: 07/15/24 Exam# [id number] Ordering Dr: Santiago Roblero DO PROCEDURE: CHEST 1 VIEW (PORTABLE) 07/15/2024 REASON FOR EXAM: PALPITATIONS TECHNIQUE: Frontal view of the chest. COMPARISON: Comparison is made with prior study dated July 04, 2024. FINDINGS: Hardware: EKG electrodes are seen. A left-sided unipolar pacemaker is present. Heart: Prior CABG. Heart size is upper limits of normal. Lungs: The lungs are clear. Bones: Degenerative changes are identified within the thoracic spine. Other: RAD/Chest 1 View (Portable) IMPRESSION: Borderline cardiomegaly. The lungs are clear. Reading Location: [facility] CC: Dr. Bharat Coronado MD; Dr. Santiago Roblero DO ~ School Treasurer: Signed [facility]04-01-2025 Telephone encounter Note* Telephone Encounter - Vee Arshad LPN - 07/13/2024 9:19 AM EDT Pharmacy notified. [facility] Miscellaneous Notes* Telephone Encounter - Vee Arshad LPN - 07/13/2024 9:19 AM EDT Pharmacy notified. * Telephone Encounter - Tc Evans MA - 07/12/2024 6:47 PM EDT Office received fax with approval through [facility]. Approval dates valid through 07/12/24-07/12/25. Scanned into pt's chart. Tc Evans MA * Telephone Encounter - Vee Arshad LPN - 07/09/2024 11:18 AM EDT PA completed and faxed to [facility]. * Telephone Encounter - Tc Evans MA - 07/08/2024 10:10 AM EDT See message below from PA Nurse. Office also received fax from [facility] that requires signature from PCP and completed. Once signed will route to PA Nurse. Tc Evans MA * Telephone Encounter - Vee Arshad LPN - 07/07/2024 2:29 PM EDT Getting PA from [employer] for testosterone cypionate 100mg and 200ml. Unable to complete PA electronically or via [employer]. Pt has [facility]. You have to complete PA forms and fax to them for review. documented in this encounterRegional Medical Center03-31-2025 Telephone encounter Note * Telephone Encounter - Tc Evans MA - 07/12/2024 6:47 PM EDT Office received fax with approval through [employer]. Approval dates valid through 07/12/24-07/12/25. Scanned into pt's chart. Tc Evans MA [facility]03-28-2025 Telephone encounter Note* Telephone Encounter - Vee Arshad LPN - 07/09/2024 11:18 AM EDT PA completed and faxed to [employer]. [facility]03-28-2025 Telephone encounter Note* Telephone Encounter - Bharat Coronado MD - 07/09/2024 8:16 AM EDT Done Bharat Coronado MD [facility]03-28-2025 Miscellaneous Notes* Telephone Encounter - Bharat Coronado MD - 07/09/2024 8:16 AM EDT Done Bharat Coronado MD * Telephone Encounter - Sis Rios RN - 07/08/2024 5:44 PM EDT Pharmacist from [facility] calling in regards to syringes ordered for pt to use with his testosterone. Pharmacist states the closest they have to the 3 ml 22 gauge 1 needle is a 3 ml 23 gauge 1. Order pended. documented in this encounterRegional Medical Center03-27-2025 Telephone encounter Note * Telephone Encounter - Sis Rios RN - 07/08/2024 5:44 PM EDT Pharmacist from [facility] calling in regards to syringes ordered for pt to use with his testosterone. Pharmacist states the closest they have to the 3 ml 22 gauge 1 needle is a 3 ml 23 gauge 1. Order pended. [facility]03-27-2025 Telephone encounter Note* Telephone Encounter - Romy Carnes RN - 07/08/2024 4:20 PM EDT Pt called and is notified of providers message. Pt voices understanding. Romy Carnes RN [facility]03-27-2025 Miscellaneous Notes* Telephone Encounter - Romy Carnes RN - 07/08/2024 4:20 PM EDT Pt called and is notified of providers message. Pt voices understanding. Romy Carnes RN * Telephone Encounter - Bharat Coronado MD - 07/08/2024 3:01 PM EDT Rx done Bharat Coronado MD * Telephone Encounter - Suyapa Mata LPN - 07/07/2024 10:19 AM EDT Patient returned call and went over notes below from Dr Coronado. Patient said his could do the injections, she is diabetic so she knows how to do this. Patientis asking for the syringes and needles rx's to be sent to [facility] pharmacy please. * Telephone Encounter - Reji Bianchi RN - 07/07/2024 8:17 AM EDT Left vm for pt to return call to nurse for provider message. * Telephone Encounter - Bharat Coronado MD - 07/06/2024 5:56 PM EDT OK for change as suggested by pharmacist. Check with patient to see if he wants to inject himself or have nurse visit; if he want to self inject we can order the needles and syringes Bharat Coronado MD * Telephone Encounter - Aziza Comer LPN - 07/06/2024 3:34 PM EDT Jemal with [facility] calls in regards to rx for Depo-Testosterone. Jemal reports they do not have 100mg/ml. Also the multi use vials have to be disposed of 30 days after opening. Jemal report the pharmacist recommends 200 mg/ml and pt use 0.5 ml. These would be single vials. Ptwould still have to waste half a vial but not as much as if it was a multi vial. Also is pt going to be giving injection himself or come in for nurse to do it because if doing at home pt will need syringe with needle. Aziza Comer LPN * Telephone Encounter - Bharat Coronado MD - 07/06/2024 3:13 PM EDT OK to switch to testosterone injection 1 ml every 2 weeks for 3 months, then check levels and see how he is doing. Bharat Coronado MD * Telephone Encounter - Tc Evans MA - 07/05/2024 3:39 PM EDT Please see message from pt and advise. 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 Patient wanting to know if he is a candidate for the Testerone injections. Patient is due for a refill of Testerone medication. Please contact patient to advise. documented in this encounterRegional Medical Center03-27-2025 Telephone encounter Note * Telephone Encounter - Bharat Coronado MD - 07/08/2024 3:01 PM EDT Rx done Bharat Coronado MD [facility]03-27-2025 Telephone encounter Note* Telephone Encounter - Tc Evans MA - 07/08/2024 10:10 AM EDT See message below from PA Nurse. Office also received fax from [employer] that requires signature from PCP and completed. Once signed will route to PA Nurse. Tc Evans MA [facility]03-26-2025 Telephone encounter Note* Telephone Encounter - Vee Arshad LPN - 07/07/2024 2:29 PM EDT Getting PA from [employer] for testosterone cypionate 100mg and 200ml. Unable to complete PA electronically or via [employer]. Pt has [employer]. You have to complete PA forms and fax to them for review. [facility]03-26-2025 Telephone encounter Note* Telephone Encounter - Suyapa Mata LPN - 07/07/2024 10:19 AM EDT Patient returned call and went over notes below from Dr Coronado. Patient said his could do the injections, she is diabetic so she knows how to do this. Patientis asking for the syringes and needles rx's to be sent to [facility] pharmacy please. [facility]03-26-2025 Telephone encounter Note* Telephone Encounter - Reji Bianchi RN - 07/07/2024 8:17 AM EDT Left vm for pt to return call to nurse for provider message. [facility]03-25-2025 Telephone encounter Note* Telephone Encounter - Bharat Coronado MD - 07/06/2024 5:56 PM EDT OK for change as suggested by pharmacist. Check with patient to see if he wants to inject himself or have nurse visit; if he want to self inject we can order the needles and syringes Bharat Coronado MD [facility]03-25-2025 Telephone encounter Note* Telephone Encounter - Aziza Comer LPN - 07/06/2024 3:34 PM EDT Jemal with [facility] calls in regards to rx for Depo-Testosterone. Jemal reports they do not have 100mg/ml. Also the multi use vials have to be disposed of 30 days after opening. Jemal report the pharmacist recommends 200 mg/ml and pt use 0.5 ml. These would be single vials. Ptwould still have to waste half a vial but not as much as if it was a multi vial. Also is pt going to be giving injection himself or come in for nurse to do it because if doing at home pt will need syringe with needle. Aziza Comer LPN [facility]03-25-2025 Telephone encounter Note* Telephone Encounter - Bharat Coronado MD - 07/06/2024 3:13 PM EDT OK to switch to testosterone injection 1 ml every 2 weeks for 3 months, then check levels and see how he is doing. Bharat Coronado MD [facility]03-25-2025 Telephone encounter Note* Telephone Encounter - Lani Walker RN - 07/06/2024 2:37 PM EDT Called and spoke with to relay Marissa's message and recommendation to continue current regimen. She verbalized understanding. Lani Walker RN [facility]03-25-2025 Miscellaneous Notes* Telephone Encounter - Lani Walker RN - 07/06/2024 2:37 PM EDT Called and spoke with to relay Marissa's message and recommendation to continue current regimen. She verbalized understanding. Lani Walker RN * Telephone Encounter - Suzi House APRN.CNP - 07/06/2024 2:18 PM EDT Covering for Davonte Augustin CNP, reviewed echocardiogram which indicates LVEF 45- 50%, stage III diastolic dysfunction, severely dilated left atrium, the severely dilated left atrium may make it challenging to maintain sinus rhythm. He should continue current regimen, will forward this encounter to Dr. Hughes so he is aware, a procedure request for repeat catheter ablation of atrial fibrillation has already been submitted, and likely in the process of being scheduled, however scheduling out several months. Thank you. Suzi House APRN.CNP * Telephone Encounter - Claritza Lopez LPN - 07/06/2024 1:26 PM EDT Bharat Finch called patient was in [facility] ER on 07/04/24 for A-fib patient was cardioverted. Patient Echo results are in chart from [facility] on 06/02/24. Claritza Lopez LPN July 06, 2024 1:30 PM documented in this encounterRegional Medical Center03-25-2025 Telephone encounter Note * Telephone Encounter - Suzi House APRN.CNP - 07/06/2024 2:18 PM EDT Covering for Davonte Augustin CNP, reviewed echocardiogram which indicates LVEF 45- 50%, stage III diastolic dysfunction, severely dilated left atrium, the severely dilated left atrium may make it challenging to maintain sinus rhythm. He should continue current regimen, will forward this encounter to Dr. Hughes so he is aware, a procedure request for repeat catheter ablation of atrial fibrillation has already been submitted, and likely in the process of being scheduled, however scheduling out several months. Thank you. Suzi House APRN.KORINA [facility] Work Phone: 1(353) 483-814603-25-2025 Telephone encounter Note* Telephone Encounter - Claritza Lopez LPN - 07/06/2024 1:26 PM EDT Bharat Finch called patient was in [facility] ER on 07/04/24 for A-fib patient was cardioverted. Patient Echo results are in chart from [facility] on 06/02/24. Claritza Lopez LPN July 06, 2024 1:30 PM [facility]03-24-2025 Telephone encounter Note* Telephone Encounter - Tc Evans MA - 07/05/2024 3:39 PM EDT Please see message from pt and advise. 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 Patient wanting to know if he is a candidate for the Testerone injections. Patient is due for a refill of Testerone medication. Please contact patient to advise. [facility]03-23-2025 Radiology Diagnostic study note [facility] Imaging Services [address] [place] [address] Chest PA and Lateral MR#: [id number] Acct: [id number] Name: MIKAYLABHARAT Castellanos STEPHAN Rep #: [id number] : 1965 M 58 From: Stanislaw Barraza MD PCP: Dr. Bharat Coronado MD Status: RE G ER Study:Chest PA and Lateral Date of Exam: 07/04/24 Exam# [id number] Ordering Dr: Sujey Jade EXAM: CHEST PA AND LATERAL CLINICAL HISTORY: SOB COMPARISON: Chest x-ray of 03/30/2024 TECHNIQUE: PA and lateral views of the chest obtained. RAD/Chest PA and Lateral IMPRESSION: Prior sternotomy again seen. Left thoracic transvenous pacemaker with atrial and ventricular leads appears unchanged. Prior coronary artery stenting noted. The cardiomediastinal silhouette is within the normal range. Chronic lung changes are noted, but no acute pneumonic process is identified. No pleural effusion or pneumothorax is seen. Generalized osteopenia is seen. No interval osseous changes noted. 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 No radiographic evidence of acute cardiopulmonary disease. Reading Location: [id number] CC: Dr. Bharat Coronado MD; EMMA Del Toro ~ School Treasurer: Signed [facility]03-10-2025 Telephone encounter Note* Telephone Encounter - Wily Mcghee APRN.CNP - 06/21/2024 1:42 PM EDT Approved. PDMP website checked and validated. All prescriptions have been APPROPRIATELY filled. No suspiciousactivity was identified. 06/21/2024 by Wily Mcghee APRN.CNP The following approved medication requests have been transmitted electronically. Requested Prescriptions Signed Prescriptions Disp Refills testosterone (ANDROGEL) 50 mg / 5 g (1%) 30 Packet 2 Sig: Apply 1 Packet as directed once daily for 90 days. Authorizing Provider: WILY MCGHEE APRN.CNP [facility]03-10-2025 Miscellaneous Notes* Telephone Encounter - Wily Mcghee APRN.CNP - 06/21/2024 1:42 PM EDT Approved. PDMP website checked and validated. All prescriptions have been APPROPRIATELY filled. No suspiciousactivity was identified. 06/21/2024 by Wily Mcghee APRN.CNP The following approved medication requests have been transmitted electronically. Requested Prescriptions Signed Prescriptions Disp Refills testosterone (ANDROGEL) 50 mg / 5 g (1%) 30 Packet 2 Sig: Apply 1 Packet as directed once daily for 90 days. Authorizing Provider: WILY MCGHEE APRN.CNP * Telephone Encounter - Aziza Comer LPN - 06/21/2024 12:17 PM EDT Prescription Refill Information The patient has been identified by name and date of : Yes Caregiver verified no other encounters exist for this prescription request: Yes Caregiver confirmed with patient/requestor that no other refills are due, in the near future, with this provider at this time: Yes The last office visit in the department: 02/16/24 Does the patient have a future office visit with this provider/department: Yes 08/16/24 Requested Prescriptions Pending Prescriptions Disp Refills testosterone (ANDROGEL) 50 mg / 5 g (1%) 30 Packet 2 Sig: Apply 1 Packet as directed once daily for 90 days. Aziza Comer LPN June 21, 2024 12:17 PM [facility] Telephone encounter Note * Telephone Encounter - Aziza Comer LPN - 06/21/2024 12:17 PM EDT Prescription Refill Information The patient has been identified by name and date of : Yes Caregiver verified no other encounters exist for this prescription request: Yes Caregiver confirmed with patient/requestor that no other refills are due, in the near future, with this provider at this time: Yes The last office visit in the department: 02/16/24 Does the patient have a future office visit with this provider/department: Yes 08/16/24 Requested Prescriptions Pending Prescriptions Disp Refills testosterone (ANDROGEL) 50 mg / 5 g (1%) 30 Packet 2 Sig: Apply 1 Packet as directed once daily for 90 days. Aziza Comer LPN June 21, 2024 12:17 PM [facility]02-19[facility]25 Evaluation note* Diagnosis Onset Date Resolution Status Admit Date Essential hypertension chronic Fe bruary 2024 3:57pm H/O coronary artery bypass surgery December 02, 2008 chronic June 02, 2024 3:57pm History of coronary artery stent placement August 19, 2023 chronic June 02 025 3:57pm HLD (hyperlipidemia) chronic Febr ua2024 3:57pm PAF (paroxysmal atrial fibrillation) chronic June 02 2 025 3:57pm S/P cardiac pacemaker procedure chronic June 02 025 3:57pm ALICIA treated with BiPAP deleted Fe bruary 2024 3:57pm Essential hypertension chronic Ap ril 2024 10:49am H/O coronary artery bypass surgery December 02, 2008 chronic July 20 10:49am History of coronary artery stent placement August 19, 2023 chronic July 20, 2024 10:49am HLD (hyperlipidemia) chronic Apri l 2024 10:49am PAF (paroxysmal atrial fibrillation) chronic July 20, 2024 10:49am S/P cardiac pacemaker procedure chronic July 20, 2024 10:49am ALICIA treated with BiPAP deleted Ap ril 2024 10:49am Atrial fibrillation chronic July 21, 2024 7:55am Obesity chronic July 21 7:55am ALICIA (obstructive sleep apnea) chronic July 21, 2024 7:55am [facility] Work Phone: [phone]) 660-979502-18-2025 Telephone encounter Note* Telephone Encounter - Davonte Augustin APRN.CNP - 06/01/2024 9:[address] Hughes, I had the pleasure of seeing Bharat in office today. He previously underwent JOSE ALBERTO guided cardioversionon 01/27/2024. Unfortunately he was cardioverted again in February 2024 in the [facility] ED and most recently 05/10/2024. He is in rhythm as of today's EKG. Unfortunately his left lower extremity has +4pitting edema and his right lower extremity +2. He is compliant with his medications and denies anymissed doses of his blood thinners. His primary symptom is shortness of breath. Alternating good and bad weeks. 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 We discussed potential repeat catheter ablation versus drug loading. Overview as well as risk/benefits were discussed for both. He is agreeable to what ever we recommend. I contacted Rae RODRÍGUEZ at the [facility] office to make her aware I haveordered an AMANDA surface echo as well as bilateral lower extremity ultrasound. Rae mentioned she will place orders for stat testing down there for patient convenience. They will be reaching out to patient shortly so he can be seen in the office later today. I updated patient's spouse accordingly. Please advise. Thanks, Davonte Augustin APRN.CNP June 01, 2024 9:28 AM [facility]02-18-2025 Miscellaneous Notes* Telephone Encounter - Davonte Augustin APRN.CNP - 06/01/2024 9:[address] Hughes, I had the pleasure of seeing Bharat in office today. He previously underwent JOSE ALBERTO guided cardioversionon 01/27/2024. Unfortunately he was cardioverted again in February 2024 in the [facility] ED and most recently 05/10/2024. He is in rhythm as of today's EKG. Unfortunately his left lower extremity has +4pitting edema and his right lower extremity +2. He is compliant with his medications and denies anymissed doses of his blood thinners. His primary symptom is shortness of breath. Alternating good and bad weeks. 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 We discussed potential repeat catheter ablation versus drug loading. Overview as well as risk/benefits were discussed for both. He is agreeable to what ever we recommend. I contacted Rae RODRÍGUEZ at the [facility] office to make her aware I haveordered an AMANDA surface echo as well as bilateral lower extremity ultrasound. Rae mentioned she will place orders for stat testing down there for patient convenience. They will be reaching out to patient shortly so he can be seen in the office later today. I updated patient's spouse accordingly. Please advise. Thanks, Davonte Augustin APRN.CNP June 01, 2024 9:28 AM documented in [facility] encounterReg[facility]02-[facility]25 History of Present illness Narrative* Davonte Augustin APRN.CNP - 06/01/2024 8:00 AM EST [facility] General Cardiology Electrophysiology PRIMARY CARE PHYSICIAN: Bharat Coronado [address] [place] [address] CHIEF COMPLAINT: Persistent atrial fibrillation/pacemaker. HISTORY OF PRESENT ILLNESS copied from [facility] office note on 02/20/2024: The patient underwent cryoballoon catheter ablation of atrial fibrillation with Dr. Hughes 11/12/2023, he was discharged the next day and metoprolol was reduced to 100 mg daily, and later further reduced to 50 mg daily in December. He presented to the [facility] ED in January, was found to be in atrial fibrillation with RVR, subsequently was transferred to [facility], reported taking Eliquis once daily instead of twice daily due to bruising, underwent JOSE ALBERTO guided cardioversion 01/27/[address] Mendoza, sinus rhythm was restored and he was discharged the next day. He reports doing well since the most recent hospitalization, states he has more energy and improved quality of life since the ablation procedure. He denies chest discomfort, palpitations, shortness of breath, lightheadedness, dizziness, near-syncope or syncope. He remains anticoagulated with Eliquis, denies any bleeding issues or falls. He reports compliance with BiPAP therapy. He reports having his 3-month post ablation testing performed at [facility], I see the Holter monitor report, however I do not see the echocardiogram report, we will see if Dr. Hughes has received and perhaps it is just not scanned in yet. The Holter monitor showed paced rhythm with an average heart rate of 64 bpm, range 58-100 bpm, infrequent PACs and PVCs, some brief episodes of SVT. Interval History: Bharat is a pleasant 58-year-old gentleman who presents today for follow-up regarding history of persistent atrial fibrillation as well as pacemaker. Patient previously underwent JOSE ALBERTO guided cardioversion in January 2024. Unfortunately he presented to [facility] in February 2024 and was cardioverted. Additionally recently cardioverted on 05/10/2024 again in [facility] ED. Patient reports he has good weeks and bad weeks. His primary symptom is shortness of breath. 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 He previously underwent cryo PVI in October 2023. His device is followed by [facility] and he sees Dr. Enriquez for his general cardiology care. He is compliant with his Eliquis and Toprol-XL regimen. He was prescribed his Lasix twice a day however has only been taking once a day. Bilateral lower extremities noted to be considerably edematous. Left greater than right. Left lower extremity almost lymphedema like. Advised patient to go back to taking his Lasix twice a day. Encouraged patient restrict his sodium and fluid intake. He was made aware we need to check an echo aswell as a left lower extremity ultrasound to rule out DVT as soon as possible. He and his verbalized understanding however they would prefer to have this testing done at [facility]. We discussed given frequent cardioversions it is likely time to revisit potential repeat catheter ablation versus elective drug loading. Overview as well as risk/benefits were discussed for both options. Patient indicated he is open to which ever is recommended. Advised patient I will place orders for ultrasound and surface echo. Additionally will touch base with Rosaura De La O APRN. Follow-up in 3 months. Will discuss with attending. 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 S/p CABG x3v 12/02/2008; stents 10/26/2018 Atrial fibrillation (HCC) Awareness under anesthesia Blood in semen 2022 CHF (congestive heart failure) (HCC) Coronary artery disease Dyspnea on exertion Erectile dysfunction Essential hypertension History of cardioversion History of coronary artery bypass surgery 12/02/2008 History of coronary artery stent placement 08/19/2023 PCI-KAREN-OM2 w/ 2.5 x 16 mm Synergy and KAREN-Sequential SVG-OM2 and LPDA w/ 4.0 x 12 mm Synergy Stent10/26/18, KAREN Mid SVG to OM using Uche Kinney 3.0x15 mm 08/19/23 HLD (hyperlipidemia) 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 male prison current use of anticoagulant therapy 09/10/2023 Nonsustained paroxysmal ventricular tachycardia (HCC) ALICIA treated with BiPAP complaint Pacemaker 04/2022 for bradley/SSS [facility] [phone] PAF (paroxysmal atrial fibrillation) (HCC) Palpitations Persistent atrial fibrillation (HCC) 02/27/2022 Presence of cardiac pacemaker 06/07/2022 S/P CABG x 3 Sick sinus syndrome (HCC) Status post catheter ablation of atrial fibrillation balloon catheter cryoablation/PVAI for atrial fibrillation 11/12/2023 Tachy-bradley syndrome (HCC) PAST SURGICAL HISTORY Procedure Laterality Date AFIB ABLATION/PULM VEIN ISOLATION 11/12/2023 cryoballoon catheter ablation/PVAI; very challenging PVs anatomy (see report) [facility] Dr. Hughes BASIC PACEMAKER DUAL CHAMBER Left 05/10/2022 SJM/Ulloa dual-chamber pacemaker system; [facility], Dr. 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 PAST SURGICAL HISTORY OF Left 05/24/2022 Tear duct surgery for left eye PCI/STENT 2018 PCI to KAREN-OM2 w/2.5x16mm synergy and KAREN-Sequential SVG-OM2 and LPDA w/ 4.0x12mm synergy stent PT [facility]ULAR 08/19/2023 REPAIR ROTATOR CUFF,ACUTE Left JOSE ALBERTO 12/14/2021 TONSILLECTOMY & ADENOIDECTOMY <AGE 12 Social History Tobacco Use Smoking status: Never Smokeless tobacco: Never Vaping Use Vaping status: Never Used Substance Use Topics Alcohol use: Not Currently Comment: few times a month Drug use: Not Currently Types: Marijuana Family History Problem Relation Age of Onset Diabetes Mother Ischemic Heart Disease Father Diabetes Father Cancer Father other (brain aneurysm rupture) Brother ALLERGIES Allergen Reactions Chlorhexidine Rash Empagliflozin Other: See Comments Bad yeast infection Isopropyl Alcohol Itching MEDICATIONS: fluticasone (FLONASE) 50 mcg/actuation nasal spray Use 2 Sprays in each nostril once daily. Rinse mouth after use. potassium chloride ER (KLOR-CON) 20 mEq tablet Take 1 tablet by mouth two times a day. atorvastatin (LIPITOR) 40 mg tablet Take 40 mg by mouth daily at bedtime. ELIQUIS 5 mg tab(s) Take 1 tablet by mouth every 12 hours 6am/6pm. tiZANidine (ZANAFLEX) 4 mg tablet Take 4 mg by mouth once daily as needed (muscle spasm). HYDROcodone-acetaminophen (NORCO) 5-325 mg per tablet Take 1 tablet by mouth twice daily as needed. furosemide (LASIX) 40 mg tablet Take 1 tablet by mouth two times a day. testosterone (ANDROGEL) 50 mg / 5 g (1%) Apply 1 Packet as directed once daily for 90 days. metoprolol succinate ER (TOPROL XL) 100 mg Take 1 tablet by mouth once daily. REVIEW OF SYSTEMS: Review of Systems Constitutional: Negative for chills, fatigue and fever. Respiratory: Positive for shortness of breath. Negative for apnea, cough, chest tightness and wheezing. Cardiovascular: Positive for leg swelling. Negative for chest pain and palpitations. Gastrointestinal: Negative for abdominal distention, abdominal pain, constipation, diarrhea, nauseaand vomiting. Genitourinary: Negative for difficulty urinating, dysuria and hematuria. Musculoskeletal: Negative for arthralgias. Neurological: Negative for dizziness, weakness, light-headedness and headaches. Psychiatric/Behavioral: Negative for agitation, behavioral problems, confusion and suicidal ideas. PHYSICAL EXAMINATION: BP 138/80 Pulse 60 Resp 18 Ht 5' 9 (1.75m) Wt 252 lb (114.3kg) SpO2 99% BMI 37.20 kg/(m^2). Physical Exam Constitutional: Appearance: He is obese. Cardiovascular: Rate and Rhythm: Normal rate and regular rhythm. Pulses: Radial pulses are 2+ on the right side and 2+ on the left side. Posterior tibial pulses are 1+ on the right side and 1+ on the left side. Heart sounds: Normal heart sounds, S1 normal and S2 normal. Comments: Atrial paced rhythm at a rate of 60. Pulmonary: Effort: Pulmonary effort is normal. Breath sounds: Normal breath sounds. Abdominal: General: Bowel sounds are normal. Palpations: Abdomen is soft. Musculoskeletal: Right lower le+ Edema present. Left lower le+ Edema present. Skin: General: Skin is warm and dry. Neurological: Mental Status: He is alert and oriented to person, place, and time. Psychiatric: Mood and Affect: Mood normal. Behavior: Behavior normal. CARDIOVASCULAR MEDICINE TESTING: Echo 03/02/2024 Normal LV size with normal systolic function with an EF of 60%. No significant valvular abnormalities. Left atrium mildly enlarged. EKG 02/20/2024 Atrial paced rhythm with a ventricular rate of 60. QRS 106. QTc 436. JOSE ALBERTO guided DCCV 01/27/2024 Patient presented in atrial fibrillation which was terminated to sinus rhythm with a ventricular rate of 60 with a 200 J synchronized shock. [facility] ED 05/10/2024 Successful cardioversion. PLAN AND RECOMMENDATIONS: ASSESSMENT/PLAN: 1. Persistent atrial fibrillation (HCC) - ICD9: 427.31, ICD10: I48.19 (primary diagnosis) 58-year-old gentleman who presents today for follow-up regarding history of persistent atrial fibrillation as well as pacemaker. Historically underwent cryo PVI in October 2023. [employer] dual-chamber permanent pacemaker was implanted in April 2022. Most recent device check from 01/26/2024 revealeda AT/AF burden of roughly 35 to 40% since January 2024. Atrial paced burden of 53% and ventricular paced burden of 15% since March 2023. History of triple bypass in November 2008. Additional PCI to OM 2 in October 2018 as well as PCI to OM in August 2023. [id number] of at least 3 secondary to hypertension, CHF, and CAD. Current treatment regimen includes Eliquis 5 mg twice daily and Toprol-XL 50 mg twice daily. Underwent successful JOSE ALBERTO guided cardioversion on 01/27/2024. Additionally underwent repeat cardioversion in the [facility] ED in February 2024 as well as most recently 05/10/2024. Left lower extremity ultrasound ordered with AMANDA priority as well as surface echo. Will update [facility] office. Discussed repeat catheter ablation versus drug loading to which patient is open to either option. Will discuss with attending. 2. Presence of cardiac pacemaker - ICD9: V45.01, ICD10: Z95.0 As above. 3. Palpitations - ICD9: 785.1, ICD10: R00.2 As above. 4. History of coronary artery bypass surgery - ICD9: V45.81, ICD10: Z95.1 As above. 5. Essential (primary) hypertension - ICD9: 401.9, ICD10: I10 BP today 138/80. 6. Chronic congestive heart failure, unspecified heart failure type (HCC) - ICD9: 428.0, ICD10: I50.9 As above. 7. At risk for stroke - ICD9: V15.89, ICD10: Z91.89 As above. 8. Obesity, Class II, BMI 35-39.9 - ICD9: 278.00, ICD10: E66.812 Current historical BMI listed at 37.24. Return in about 3 months (around 08/29/2024) for Follow up in [address] Hughes. . Davonte Augustin APRN.MERCHANDISE FLOW TEAM LEADER documented in this encounterRegional Medical Center02-18-2025 NoteHNO ID: [id number] Author: DAVONTE AUGUSTIN APRN.KORINA Service: ? Author Type: Nurse Practitioner Type: Progress Notes Filed: 06/01/2024 09:12 Note Text: [facility] General Cardiology Electrophysiology PRIMARY CARE PHYSICIAN: Bharat Coronado [address] [place] [address] CHIEF COMPLAINT: Persistent atrial fibrillation/pacemaker. HISTORY OF PRESENT ILLNESS copied from [facility] office note on 02/20/2024: The patient underwent cryoballoon catheter ablation of atrial fibrillation with Dr. Hughes 11/12/2023, he was discharged the next day and metoprolol was reduced to 100 mg daily, and later further reduced to 50 mg daily in December. He presented to the [facility] ED in January, was found to be in atrial fibrillation with RVR, subsequently was transferred to [facility], reported taking Eliquis once daily instead of twice daily due to bruising, underwent JOSE ALBERTO guided cardioversion 01/27/[address] Mendoza, sinus rhythm was restored and he was discharged the next day. He reports doing well since the most recent hospitalization, states he has more energy and improved quality of life since the ablation procedure. He denies chest discomfort, palpitations, shortness of breath, lightheadedness, dizziness, near-syncope or syncope. He remains anticoagulated with Eliquis, denies any bleeding issues or falls. He reports compliance with BiPAP therapy. He reports having his 3-month post ablation testing performed at [facility], I see the Holter monitor report, however I do not see the echocardiogram report, we will see if Dr. Hughes has received and perhaps it is just not scanned in yet. The Holter monitor showed paced rhythm with an average heart rate of 64 bpm, range 58-100 bpm, infrequent PACs and PVCs, some brief episodes of SVT. Interval History: Bharat is a pleasant 58-year-old gentleman who presents today for follow-up regarding history of persistent atrial fibrillation as well as pacemaker. Patient previously underwent JOSE ALBERTO guided cardioversion in January 2024. Unfortunately he presented to [facility] ED in February 2024 and was cardioverted. Additionally recently cardioverted on 05/10/2024 again in [facility] ED. Patient reports he has good weeks and bad weeks. His primary symptom is shortness of breath. 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 He previously underwent cryo PVI in October 2023. His device is followed by [facility] and he sees Dr. Enriquez for his general cardiology care. He is compliant with his Eliquis and Toprol-XL regimen. He was prescribed his Lasix twice a day however has only been taking once a day. Bilateral lower extremities noted to be considerably edematous. Left greater than right. Left lower extremity almost lymphedema like. Advised patient to go back to taking his Lasix twice a day. Encouraged patient restrict his sodium and fluid intake. He was made aware we need to check an echo as well as a left lower extremity ultrasound to rule out DVT as soon as possible. He and his verbalized understanding however they would prefer to have this testing done at [facility]. We discussed given frequent cardioversions it is likely time to revisit potential repeat catheter ablation versus elective drug loading. Overview as well as risk/benefits were discussed for both options. Patient indicated he is open to which ever is recommended. Advised patient I will place orders for ultrasound and surface echo. Additionally will touch base with Rosaura De La O APRN. Follow-up in 3 months. Will discuss with attending. 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 S/p CABG x3v 12/02/2008; stents 10/26/2018 Atrial fibrillation (HCC) Awareness under anesthesia Blood in 2022 CHF (congestive heart failure) (HCC) Coronary artery disease Dyspnea on exertion Erectile dysfunction Essential hypertension History of cardioversion History of coronary artery bypass surgery 12/02/2008 History of coronary artery stent placement 08/19/2023 PCI-KAREN-OM2 w/ 2.5 x 16 mm Synergy and KAREN-Sequential SVG-OM2 and LPDA w/ 4.0 x 12 mm Synergy Stent 10/26/18, KAREN Mid SVG to OM using Uche Kinney 3.0x15 mm 08/19/23 HLD (hyperlipidemia) 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 male prison current use of anticoagulant therapy 09/10/2023 Nonsustained paroxysmal ventricular tachycardia (HCC) ALICIA treated with BiPAP complaint Pacemaker 04/2022 for bradley/SSS [facility] [phone] PAF (paroxysmal atrial fibrillation) (HCC) Palpitations Persistent atrial fibrillation (HCC) 02/27/2022 Presence of cardiac pacemaker 06/07/2022 S/P CABG x 3 Sick sinus syndrome (HCC) Status post catheter ablation of atrial fibrillation balloon catheter cryoablation/PVAI for atrial fibrillation 11/12/2023 Tachy-bradley syndrome (HCC) PAST SURGICAL HISTORY Procedure Lateral (more content not included)...[facility] 05-10-2024 Evaluation note* Diagnosis Onset Date Resolution Status Admit Date Atrial fibrillation with rapid ventricular response acute Janua ry 2024 10:23am Pacemaker acute May 10, 2024 10:23am 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 chronic May 10 10:23am Essential hypertension chronic Ja nuary 2024 10:23am HLD (hyperlipidemia) chronic Lonnie claude 2024 10:23am ALICIA treated with BiPAP acute Fe bruary 2024 3:57pm Essential hypertension chronic Fe bruary 2024 3:57pm H/O coronary artery bypass surgery December 02, 2008 chronic June 02, 2024 3:57pm History of coronary artery stent placement August 19, 2023 chronic June 02, 2 025 3:57pm HLD (hyperlipidemia) chronic Febr uary 2024 3:57pm PAF (paroxysmal atrial fibrillation) chronic June 02, 2 025 3:57pm S/P cardiac pacemaker procedure chronic June 02, 2 025 3:57pm [facility] Work Phone: 1(211) 727-301112-26-2024 Instructions* Patient Instructions* Nino Das APRN.MERCHANDISE FLOW TEAM LEADER - 04/08/2024 7:14 PM EST Images from the original note were not included. ASSESSMENT/PLAN: 1. Bacterial sinusitis - ICD9: 473.9, 041.9, ICD10: J32.9, B96.89 - Will begin treatment with as per antibiotic as written, see orders - Supportive care with plenty of fluids, rest, and analgesia prn. - AMOXICILLIN 875 MG-POTASSIUM CLAVULANATE 125 MG TABLET - FLUTICASONE PROPIONATE 50 MCG/ACTUATION NASAL SPRAY,SUSPENSION - BENZONATATE 100 MG CAPSULE - Follow-up with your PCP in 3-5 days if symptoms have not improved or sooner if symptoms worsen - Discussed red flags and need for immediate medical evaluation if any occur. - Discussed supportive care treatment with fluids, rest and analgesia. - Discussed expected course of illness Nino Das APRN.KORINA Adult Sinusitis Patient Education What is Sinusitis? Sinusitis [lwjz-icb-zojd-tis] is inflammation of the sinuses or swelling of the lining of the sinus cavity or nose. During an infection the sinuses become blocked with fluid causing swelling of the lining of the sinuses. Symptoms: (viral and bacterial infections) Stuffy nose Runny nose Postnasal drip Fever Toothache Headache Tiredness Cough Sore throat Face and head pressure and or pain Common causes: 98% of sinus infections are viral caused by viruses. Risk Factors of Sinusitis Include: Allergies, air pollution, indoor humidity and outdoor temperature changes, andstructural changes inthe nose may contribute to sinus pain, pressure and congestion. When to get help? Temperature greater than 100.4 F Symptoms lasting more than 10 days or worsening symptoms greater than 7-10 days. If you do not improve or worsen after a course of antibiotics, you should be re-examined. Diagnosis and Treatment: Your healthcare provider will ask a number of questions about your symptoms and how long they have occurred. If symptoms of sinusitis persist greater than 10 days, it is possible you have a bacterial sinus infection and an antibiotic is prescribed. If it is viral, antibiotics will not help. You may be instructed to take [id number] medications for symptoms. including fever reducers acetaminophen or ibuprofen, nasal saline spray, cough and cold preparations and decongestants as prescribed by the physician, nurse practitioner or physician talent assistant. Self-Care and Prevention: Rest Fluids for hydration Good hand washing Humidifier Avoid smoking and exposure to second hand smoke Avoid sick contacts [facility]24 NoteHNO ID: [id number] Author: NINO DAS APRN.KORINA Service: ? Author Type: Nurse Practitioner Type: Progress Notes Filed: 04/08/2024 19:14 Note Text: Subjective Sinus Problem Associated symptoms include congestion, coughing and a sore throat. Pertinent negatives include no chest pain, chills, fever, myalgias, nausea or vomiting. Bharat Finch is a 58 year old male who presents with sinus congestion and drainage, chest congestion and 7-10 days. He has not had a fever. He cannot take decongestants due to cardiac history-states it has caused him to go into Afib in the past. He has nearly constant nasal drainage. Review of Systems Constitutional: Negative for chills, fever and malaise/fatigue. HENT: Positive for congestion and sore throat. Negative for ear pain. Respiratory: Positive for cough. Cardiovascular: Negative for chest pain. Gastrointestinal: Negative for diarrhea, nausea and vomiting. Musculoskeletal: Negative for myalgias. BP 128/80 Pulse 90 Temp 36.7 ?C (98.1 ?F) Resp 16 Wt 114.4 kg (252 lb 3.3 oz) SpO2 99% BMI 37.24 kg/m? 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 S/p CABG x3v 12/02/2008; stents 10/26/2018 Atrial fibrillation (HCC) Awareness under anesthesia Blood in semen 2022 CHF (congestive heart failure) ([facility]) Coronary artery disease Dyspnea on exertion Erectile dysfunction Essential hypertension History of cardioversion History of coronary artery bypass surgery 12/02/2008 History of coronary artery stent placement 08/19/2023 PCI-KAREN-OM2 w/ 2.5 x 16 mm Synergy and KAREN-Sequential SVG-OM2 and LPDA w/ 4.0 x 12 mm Synergy Stent 10/26/18, KAREN Mid SVG to OM using Clio Kinney 3.0x15 mm 08/19/23 HLD (hyperlipidemia) 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 [facility] current use of anticoagulant therapy 09/10/2023 Nonsustained paroxysmal ventricular tachycardia (HCC) ALICIA treated with BiPAP complaint Pacemaker 04/2022 for bradley/SSS [facility] [phone] PAF (paroxysmal atrial fibrillation) (HCC) Palpitations Persistent atrial fibrillation (HCC) 02/27/2022 Presence of cardiac pacemaker 06/07/2022 S/P CABG x 3 Sick sinus syndrome (HCC) Status post catheter ablation of atrial fibrillation balloon catheter cryoablation/PVAI for atrial fibrillation 11/12/2023 Tachy-bradley syndrome (HCC) PAST SURGICAL HISTORY Procedure Laterality Date AFIB ABLATION/PULM VEIN ISOLATION 11/12/2023 cryoballoon catheter ablation/PVAI; very challenging PVs anatomy (see report) [facility] Dr. Hughes BASIC PACEMAKER DUAL CHAMBER Left 05/10/2022 SJM/Ulloa dual-chamber pacemaker system; [facility], Dr. 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 potassium chloride ER (KLOR-CON) 20 mEq tablet Take 1 tablet by mouth two times a day. metoprolol succinate ER (TOPROL XL) 100 mg Take 1 tablet by mouth once daily. atorvastatin (LIPITOR) 40 mg tablet Take 40 mg by mouth daily at bedtime. ELIQUIS 5 mg tab(s) Take 1 tablet by mouth every 12 hours 6am/6pm. tiZANidine (ZANAFLEX) 4 mg tablet Take 4 mg by mouth once daily as needed (muscle spasm). HYDROcodone-acetaminophen (NORCO) 5-325 mg per tablet Take 1 tablet by mouth twice daily as needed. furosemide (LASIX) 40 mg tablet Take 1 tablet by mouth two times a day. amoxicillin-clavulanate potassium (AUGMENTIN) 875-125 mg per tablet Take 1 tablet by mouth two times a day for 7 days. fluticasone (FLONASE) 50 mcg/actuation nasal spray Use 2 Sprays in each nostril once daily. Rinse mouth after use. benzonatate (TESSALON PERLE) 100 mg capsule Take 2 capsules by mouth three times a day as needed for up to 10 days. FAMILY HISTORY Problem Relation Age of Onset Diabetes Mother Ischemic Heart Disease Father Diabetes Father Cancer Father other (brain aneurysm rupture) Brother Social History Tobacco Use Smoking status: Never Smokeless tobacco: Never Vaping Use Vaping status: Never Used Substance Use Topics Alcohol use: Not Currently Comment: few times a month Drug use: Not Currently Types: Marijuana Objective Physi (more content not included)...[facility]12-26-2024 History of Present illness Narrative* Nino Das APRN.MERCHANDISE FLOW TEAM LEADER - 04/08/2024 6:40 PM EST Subjective Sinus Problem Associated symptoms include congestion, coughing and a sore throat. Pertinent negatives include no chest pain, chills, fever, myalgias, nausea or vomiting. Bharat Finch is a 58 year old male who presents with sinus congestion and drainage, chest congestionand 7-10 days. He has not had a fever. He cannot take decongestants due to cardiac history-states it has caused him to go into Afib in thepast. He has nearly constant nasal drainage. Review of Systems Constitutional: Negative for chills, fever and malaise/fatigue. HENT: Positive for congestion and sore throat. Negative for ear pain. Respiratory: Positive for cough. Cardiovascular: Negative for chest pain. Gastrointestinal: Negative for diarrhea, nausea and vomiting. Musculoskeletal: Negative for myalgias. 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 S/p CABG x3v 12/02/2008; stents 10/26/2018 Atrial fibrillation (HCC) Awareness under anesthesia Blood in semen 2022 CHF (congestive heart failure) (HCC) Coronary artery disease Dyspnea on exertion Erectile dysfunction Essential hypertension History of cardioversion History of coronary artery bypass surgery 12/02/2008 History of coronary artery stent placement 08/19/2023 PCI-KAREN-OM2 w/ 2.5 x 16 mm Synergy and KAREN-Sequential SVG-OM2 and LPDA w/ 4.0 x 12 mm Synergy Stent10/26/18, KAREN Mid SVG to OM using Uche Kinney 3.0x15 mm 08/19/23 HLD (hyperlipidemia) 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 male prison current use of anticoagulant therapy 09/10/2023 Nonsustained paroxysmal ventricular tachycardia (HCC) ALICIA treated with BiPAP complaint Pacemaker 04/2022 for bradley/SSS [facility] [phone] PAF (paroxysmal atrial fibrillation) (HCC) Palpitations Persistent atrial fibrillation (HCC) 02/27/2022 Presence of cardiac pacemaker 06/07/2022 S/P CABG x 3 Sick sinus syndrome (HCC) Status post catheter ablation of atrial fibrillation balloon catheter cryoablation/PVAI for atrial fibrillation 11/12/2023 Tachy-bradley syndrome (HCC) PAST SURGICAL HISTORY Procedure Laterality Date AFIB ABLATION/PULM VEIN ISOLATION 11/12/2023 cryoballoon catheter ablation/PVAI; very challenging PVs anatomy (see report) [facility] Dr. Hughes BASIC PACEMAKER DUAL CHAMBER Left 05/10/2022 SJM/Ulloa dual-chamber pacemaker system; [facility], Dr. 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 PAST SURGICAL HISTORY OF Left 05/24/2022 Tear duct surgery for left eye PCI/STENT 2018 PCI to KAREN-OM2 w/2.5x16mm synergy and KAREN-Sequential SVG-OM2 and LPDA w/ 4.0x12mm synergy stent PT ED HEART AND VASCULAR 08/19/2023 REPAIR ROTATOR CUFF,ACUTE Left JOSE ALBERTO 12/14/2021 TONSILLECTOMY & ADENOIDECTOMY <AGE 12 ALLERGIES Chlorhexidine, Empagliflozin, and Isopropyl Alcohol MEDICATIONS testosterone (ANDROGEL) 50 mg / 5 g (1%) Apply 1 Packet as directed once daily for 90 days. potassium chloride ER (KLOR-CON) 20 mEq tablet Take 1 tablet by mouth two times a day. metoprolol succinate ER (TOPROL XL) 100 mg Take 1 tablet by mouth once daily. atorvastatin (LIPITOR) 40 mg tablet Take 40 mg by mouth daily at bedtime. ELIQUIS 5 mg tab(s) Take 1 tablet by mouth every 12 hours 6am/6pm. tiZANidine (ZANAFLEX) 4 mg tablet Take 4 mg by mouth once daily as needed (muscle spasm). HYDROcodone-acetaminophen (NORCO) 5-325 mg per tablet Take 1 tablet by mouth twice daily as needed. furosemide (LASIX) 40 mg tablet Take 1 tablet by mouth two times a day. amoxicillin-clavulanate potassium (AUGMENTIN) 875-125 mg per tablet Take 1 tablet by mouth two times a day for 7 days. fluticasone (FLONASE) 50 mcg/actuation nasal spray Use 2 Sprays in each nostril once daily. Rinse mouth after use. benzonatate (TESSALON PERLE) 100 mg capsule Take 2 capsules by mouth three times a day as needed for up to 10 days. FAMILY HISTORY Problem Relation Age of Onset Diabetes Mother Ischemic Heart Disease Father Diabetes Father Cancer Father other (brain aneurysm rupture) Brother Social History Tobacco Use Smoking status: Never Smokeless tobacco: Never Vaping Use Vaping status: Never Used Substance Use Topics Alcohol use: Not Currently Comment: few times a month Drug use: Not Currently Types: Marijuana Objective Physical Exam Vitals and nursing note reviewed. Constitutional: General: He is not in acute distress. Appearance: Normal appearance. He is not ill-appearing. HENT: Right Ear: Tympanic membrane, ear canal and external ear normal. Left Ear: Tympanic membrane, ear canal and external ear normal. Nose: Mucosal edema, congestion and rhinorrhea present. Mouth/Throat: Mouth: Mucous membranes are moist. Pharynx: Oropharynx is clear. Uvula midline. No oropharyngeal exudate or posterior oropharyngeal erythema. Cardiovascular: Rate and Rhythm: Normal rate and regular rhythm. Heart sounds: Normal heart sounds. Pulmonary: Effort: Pulmonary effort is normal. No respiratory distress. Breath sounds: Normal breath sounds. No wheezing or rales. Musculoskeletal: Cervical back: Neck supple. Lymphadenopathy: Cervical: No cervical adenopathy. Skin: General: Skin is warm and dry. Findings: No erythema or rash. Neurological: Mental Status: He is alert. ASSESSMENT/PLAN: 1. Bacterial sinusitis - ICD9: 473.9, 041.9, ICD10: J32.9, B96.89 - Will begin treatment with as per antibiotic as written, see orders - Supportive care with plenty of fluids, rest, and analgesia prn. - AMOXICILLIN 875 MG-POTASSIUM CLAVULANATE 125 MG TABLET - FLUTICASONE PROPIONATE 50 MCG/ACTUATION NASAL SPRAY,SUSPENSION - BENZONATATE 100 MG CAPSULE - Follow-up with your PCP in 3-5 days if symptoms have not improved or sooner if symptoms worsen - Discussed red flags and need for immediate medical evaluation if any occur. - Discussed supportive care treatment with fluids, rest and analgesia. - Discussed expected course of illness Nino Das APRN.MERCHANDISE FLOW TEAM LEADER documented in this encounterReg[facility] Center11-19-2024 Telephone encounter Note * Telephone Encounter - Tc Evans MA - 03/02/2024 4:09 PM EST Please review Echo as ordered. Completed through [facility]. View External Cardiology - Echo [ID [id number]] [facility] Miscellaneous Notes* Telephone Encounter - Tc Evans MA - 03/02/2024 4:09 PM EST Please review Echo as ordered. Completed through [facility]. View External Cardiology - Echo [ID [id number]] documented in this encounterRegional Medical Center11-08-2024 Instructions* Patient Instructions* Suzi House APRN.KORINA - 02/20/2024 11:14 AM EST Atrial Fibrillation What is atrial fibrillation? Atrial fibrillation (also called A-fib) is a fast or irregular heartbeat that starts in the upper chambers of the heart. The abnormal heartbeat affects the ability of the heart to pump blood to the rest of the body. What is the cause? An electrical signal in your heart starts each heartbeat, causing the heart muscle to squeeze (contract). Normally, this signal starts in the upper right chamber of the heart (the right atrium) at a place called the sinus node. The signal then follows normal pathways to the upper left atrium and tothe lower chambers of the heart (the ventricles). When you have atrial fibrillation, electrical signals don t start in the normal place in the right atrium and don t travel normally. This can cause the upper chambers of the heart (atria) to beat very fast and not in a normal pattern. Common causes of heart rhythm problems are conditions that damage the heart, like coronary artery disease, heart attack, or heart failure. Problems with the heart valves are another common cause. The heart has 4 valves that open and closewith each heartbeat to help blood flow in the right direction through the heart. Other causes of atrial fibrillation include: Health problems, such as a stroke, lung disease, diabetes, overactive thyroid gland, or high blood pressure Abuse of alcohol or drugs, such as cocaine Sometimes no cause can be found. What are the symptoms? Some people don t have any symptoms. When atrial fibrillation does cause symptoms, the most common ones are: Feeling like your heart is beating too fast or too hard or skipping beats or fluttering Feeling tired or weak all the time Symptoms that are more serious include: Chest pain Trouble breathing Lightheadedness or dizziness confusion How is it diagnosed? Your healthcare provider will ask about your symptoms and medical history and examine you. Tests may include: An ECG (also called an EKG), which measures and records your heartbeat. You may have an ECG while you are resting or while you exercise on a treadmill. You may also be asked to wear a small portable ECG monitor for a few days or sometimes a couple weeks. Blood tests An echocardiogram, which uses sound waves (ultrasound) to show the structures of the heart, like the valves How is it treated? The goal of treatment is to help the heart keep a normal rhythm. Your treatment depends on the cause of the atrial fibrillation, how often you have symptoms, and the severity of your symptoms. If you have no symptoms, or your symptoms are fairly mild, you may not need treatment. For some people atrial fibrillation lasts just a short time and the heart goes back to a normal rhythm on its own. If you keep having spells of atrial fibrillation, treatment may help keep you from having so manyspells. If a health problem like a leaky heart valve is causing the atrial fibrillation, treating the health problem may also treat the fast or irregular heartbeat. Other possible treatments are: Medicine: Your provider may prescribe medicine to slow or restore a normal heart rate and rhythm. You may also need medicine to prevent blood clots because when the heart beats irregularly, some of the blood can stay in the upper chambers too long. This makes it easier for blood clots to form, increasing your risk of having a stroke or heart attack. Electrical cardioversion: First, you will be given medicine called anesthesia to keep you from feeling pain during the procedure. Then your chest will be given an electrical shock. The electrical shock should make your heart start beating normally again. You may need medicine to keep your heart rhythm normal after this procedure. Ablation: Ablation is a procedure that uses a small tube called a catheter to deliver energy to theinside of the heart. The energy (usually radio waves) scars small areas of heart tissue. The scars block abnormal electrical pathways and help you have a normal heart rhythm. With some types of ablation treatment, you will also need a pacemaker. A pacemaker is an electronic device put under the skin of your chest to help control the heartbeat. How can I take care of myself? Take your medicines as prescribed. Keep your appointments for follow-up blood tests. Make sure your healthcare provider knows about changes in your diet or medical condition. Your provider also needs to know about all prescription and nonprescription medicines, herbs, or supplements that you are taking. Some medicines may interact with your heart medicine or increase your risk for atrial fibrillation. If you want to drink alcohol, ask your provider how much is safe for you to drink. Follow your healthcare provider's instructions. Ask your provider: ?How and when you will hear your test results ?How long it will take to recover ?What activities you should avoid and when you can return to your normal activities ?How to take care of yourself at home ?What symptoms or problems you should watch for and what to do if you have them Make sure you know when you should come back for a checkup. How can I help prevent atrial fibrillation? The best prevention is to have a heart-healthy lifestyle. Keep a healthy weight. Eat a healthy diet that is low in sodium and saturated and trans fat. Stay fit with the right kind of exercise for you. Decrease stress. Don t smoke. Limit your use of alcohol. If you have heart disease or high blood pressure, follow your healthcare provider's instructions for treatment. Copyright 2014 [employer] and/or one of its subsidiaries. All rights reserved. documented in this encounterRegional Medical Center11-08-2024 History of Present illness Narrative* Suzi House APRN.CNP - 02/20/2024 11:00 AM EST Images from the original note were not included. [facility] PRIMARY CARE PHYSICIAN: Bharat Coronado [address] [place] [address] CHIEF COMPLAINT: Cardiovascular medicine follow-up for arrhythmia. HISTORY OF PRESENT ILLNESS: Mr. Finch is a 58 year old male who presents today for follow-up regarding arrhythmia. History copied from previous notes, edited as needed: Dr. Hughes office visit 09/12/2023: Mr. Finch is a 57 year old male who presents today for evaluation, accompanied by janna. He states he has had atrial fibrillation for a couple years now. Recently treated with amiodarone, diltiazem was discontinued at that time. He states he took the amiodarone for 8 days. He states the drug made him feel terrible so he stopped taking it. States amiodarone is a terrible drug. Previously was on dronedarone. He has had issues with rapid heart rates, at other times slow rates. A pacemaker was implanted in April 2022 for sick sinus syndrome. He had cardioversion in [facility] 09/04/2023, sinus rhythm lasted for only a couple days and then the atrial fibrillation recurred. Sometimes can tell when in the atrial fibrillation especially with tachycardia. Another cardioversion was done a couple years ago, was in normal rhythm for awhile. He has CAD, previous percutaneous interventions. He states he just recentlyhad another coronary procedure, last PCI/stent was 08/19/2023. He is referred for evaluation of management of the atrial fibrillation. [facility] notes mention the possibility of AV node catheter ablation. IMPRESSION: Mr. Finch has symptomatic persistent atrial fibrillation. I had a detailed discussion with Mr. Finch and his fiance regarding atrial fibrillation and its management. I reviewed the cornerstones or pillars of management including stroke prevention, ventricular response rate control, atrial rhythm control and patient modifiable risk factors and lifestyle changes relevant toatrial fibrillation. Ventricular rates are not well controlled right now. The diltiazem was stoppedwhen the amiodarone was initiated recently, but now he stopped taking it due to bothersome symptomsthat he attributed to the amiodarone. I think he should resume the diltiazem for now. With failure of antiarrhythmic drug therapy and/or poor tolerance to it, we should consider catheter ablation of the atrial fibrillation. Another option would be AV node catheter ablation, he already has a pacemaker but the complete heart block resulting from the AV node catheter ablation would then make him dependent on the pacemaker, with 100% ventricular pacing. It seems preferable to target the atrial fibrillation with ablation, particularly at his relatively young age. There is reasonable expectation for atrial fibrillation catheter ablation to be effective. I did discuss the atrial fibrillation ablation procedure with Mr. Finch in detail. He expressed understanding the procedure is performed withoutinterruption of the oral anticoagulation (Eliquis and Plavix), and that the procedure is performed with the use of general anesthesia. Interval History: The patient underwent cryoballoon catheter ablation of atrial fibrillation with Dr. Hughes 11/12/2023, he was discharged the next day and metoprolol was reduced to 100 mg daily, and later further reduced to 50 mg daily in December. He presented to the [facility] in January, was found to be in atrial fibrillation with RVR, subsequently was transferred to [facility], reported taking Eliquis once daily instead of twice daily due to bruising, underwent JOSE ALBERTO guided cardioversion 01/27/[address] Mendoza, sinus rhythm was restored and he was discharged the next day. He reports doing well since the most recent hospitalization, states he has more energy and improved quality of lifesince the ablation procedure. He denies chest discomfort, palpitations, shortness of breath, lightheadedness, dizziness, near-syncope or syncope. He remains anticoagulated with Eliquis, denies any bleeding issues or falls. He reports compliance with BiPAP therapy. He reports having his 3-month postablation testing performed at [facility], I see the Holter monitor report, however I do not see the echocardiogram report, we will see if Dr. Hughes has received and perhaps it is just not scanned in yet. The Holter monitor showed paced rhythm with an average heart rate of 64 bpm, range 58-100 bpm, infrequent PACs and PVCs, some brief episodes of SVT. 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 S/p CABG x3v 12/02/2008; stents 10/26/2018 Atrial fibrillation (HCC) Awareness under anesthesia Blood in 2022 CHF (congestive heart failure) (HCC) Coronary artery disease Dyspnea on exertion Erectile dysfunction Essential hypertension History of cardioversion History of coronary artery bypass surgery 12/02/2008 History of coronary artery stent placement 08/19/2023 PCI-KAREN-OM2 w/ 2.5 x 16 mm Synergy and KAREN-Sequential SVG-OM2 and LPDA w/ 4.0 x 12 mm Synergy Stent10/26/18, KAREN Mid SVG to OM using Clio Kinney 3.0x15 mm 08/19/23 HLD (hyperlipidemia) 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 male prison current use of anticoagulant therapy 09/10/2023 Nonsustained paroxysmal ventricular tachycardia (HCC) ALICIA treated with BiPAP complaint Pacemaker 04/2022 for bradley/SSS [facility] [phone] PAF (paroxysmal atrial fibrillation) (HCC) Palpitations Persistent atrial fibrillation (HCC) 02/27/2022 Presence of cardiac pacemaker 06/07/2022 S/P CABG x 3 Sick sinus syndrome (HCC) Status post catheter ablation of atrial fibrillation balloon catheter cryoablation/PVAI for atrial fibrillation 11/12/2023 Tachy-bradley syndrome (HCC) PAST SURGICAL HISTORY Procedure Laterality Date AFIB ABLATION/PULM VEIN ISOLATION 11/12/2023 cryoballoon catheter ablation/PVAI; very challenging PVs anatomy (see report) [facility] Dr. Hughes BASIC PACEMAKER DUAL CHAMBER Left 05/10/2022 [employer] dual-chamber pacemaker system; [facility], Dr. 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 PAST SURGICAL HISTORY OF Left 05/24/2022 Tear duct surgery for left eye PCI/STENT 2018 PCI to KAREN-OM2 w/2.5x16mm synergy and KAREN-Sequential SVG-OM2 and LPDA w/ 4.0x12mm synergy stent PT [facility] 08/19/2023 REPAIR ROTATOR CUFF,ACUTE Left JOSE ALBERTO 12/14/2021 TONSILLECTOMY & ADENOIDECTOMY <AGE 12 Social History Tobacco Use Smoking status: Never Smokeless tobacco: Never Vaping Use Vaping status: Never Used Substance Use Topics Alcohol use: Not Currently Comment: few times a month Drug use: Not Currently Types: Marijuana Family History Problem Relation Age of Onset Diabetes Mother Ischemic Heart Disease Father Diabetes Father Cancer Father other (brain aneurysm rupture) Brother ALLERGIES Allergen Reactions Chlorhexidine Rash Empagliflozin Other: See Comments Bad yeast infection Isopropyl Alcohol Itching MEDICATIONS: testosterone (ANDROGEL) 50 mg / 5 g (1%) Apply 1 Packet as directed once daily for 90 days. potassium chloride ER (KLOR-CON) 20 mEq tablet Take 1 tablet by mouth two times a day. metoprolol succinate ER (TOPROL XL) 100 mg Take 1 tablet by mouth once daily. atorvastatin (LIPITOR) 40 mg tablet Take 40 mg by mouth daily at bedtime. ELIQUIS 5 mg tab(s) Take 1 tablet by mouth every 12 hours 6am/6pm. tiZANidine (ZANAFLEX) 4 mg tablet Take 4 mg by mouth once daily as needed (muscle spasm). HYDROcodone-acetaminophen (NORCO) 5-325 mg per tablet Take 1 tablet by mouth twice daily as needed. furosemide (LASIX) 40 mg tablet Take 1 tablet by mouth two times a day. REVIEW OF SYSTEMS: Review of Systems Constitutional: Negative for chills, diaphoresis and fever. HENT: Negative for nosebleeds. Respiratory: Negative for cough, hemoptysis, sputum production, shortness of breath and wheezing. Cardiovascular: Positive for leg swelling (improved). Negative for chest pain, palpitations, orthopnea and PND (wears BiPAP). Gastrointestinal: Negative for blood in stool. Genitourinary: Negative for hematuria. Musculoskeletal: Negative for falls and myalgias. Neurological: Negative for dizziness, loss of consciousness and headaches. Endo/Heme/Allergies: Does not bruise/bleed easily. PHYSICAL EXAMINATION: BP 124/82 Pulse 60 Resp 18 Ht 5' 9 (1.75m) Wt 236 lb (107.0kg) SpO2 99% BMI 34.84 kg/(m^2). Physical Exam Vitals and nursing note reviewed. Constitutional: General: He is not in acute distress. Appearance: He is not diaphoretic. HENT: Head: Normocephalic and atraumatic. Neck: Vascular: No JVD. Cardiovascular: Rate and Rhythm: Normal rate and regular rhythm. Pulses: Radial pulses are 2+ on the right side and 2+ on the left side. Heart sounds: S1 normal and S2 normal. No murmur heard. No gallop. Pulmonary: Effort: Pulmonary effort is normal. No respiratory distress. Breath sounds: Normal breath sounds. No wheezing or rales. Chest: Chest wall: No tenderness. Musculoskeletal: General: Normal range of motion. Cervical back: Neck supple. Right lower leg: Edema (trace) present. Left lower leg: Edema (trace) present. Skin: General: Skin is warm and dry. Nails: There is no clubbing. Neurological: Mental Status: He is alert and oriented to person, place, and time. Psychiatric: Mood and Affect: Mood and affect normal. Behavior: Behavior normal. CARDIOVASCULAR MEDICINE TESTING: Echocardiogram: 06/30/2023 at [facility] - Normal LV size. - Left ventricular systolic function is lower limits of normal. - Mild concentric left ventricular hypertrophy. - The left ventricular ejection fraction is 50%. - The left atrium is mildly enlarged. I have personally reviewed the Electrocardiogram: 02/20/2024 -atrial paced rhythm with prolonged AV conduction, 60 bpm, MS 212 ms, QRS 106 ms, QT/QTc 436/436 ms. PLAN AND RECOMMENDATIONS: ASSESSMENT/PLAN: 1. Persistent atrial fibrillation (HCC) - ICD9: 427.31, ICD10: I48.19 (primary diagnosis) 2. Status post catheter ablation of atrial fibrillation - ICD9: V45.89, ICD10: Z98.890 -the patienthas a history of symptomatic persistent atrial fibrillation, was considered an appropriate candidate for atrial fibrillation ablation, subsequently underwent cryoballoon catheter ablation (PVI) with Dr. Hughes 11/12/2023. He had recurrence in January/2024, underwent JOSE ALBERTO guided cardioversion, successfully restoring sinus rhythm. He has been well from a heart rhythm perspective since that time, has not had symptoms suggestive of arrhythmia recurrence. He will continue metoprolol succinate 50 mg twice daily and Eliquis 5 mg twice daily. I have reviewed his Holter monitor report, I do not see the echocardiogram report, will asked Dr. Hughes if perhaps he just has not been scanned in yet. 3. Palpitations - ICD9: 785.1, ICD10: R00.2 -seems stable presently, continue metoprolol succinate 50 mg twice daily. 4. Bradycardia - ICD9: 427.89, ICD10: R00.1 5. Tachy-bradley syndrome (HCC) - ICD9: 427.81, ICD10: I49.5 6. Encounter for care of pacemaker - ICD9: V53.31, ICD10: Z45.018 - Permanent pacemaker implanted 04/2022 for bradycardia and sick sinus syndrome. Pacemaker is followed through [facility] and device clinic. 7. prison (current) use of anticoagulants - ICD9: V58.61, ICD10: Z79.01 8. At risk for stroke - ICD9: V15.89, ICD10: Z91.89 -persistent atrial fibrillation, continue Eliquis 5 mg twice daily, no signs of bleeding, risk: Benefit seems favorable. CHADS2-Vasc Score Breakdown 3 Total Score 1 History of CHF 1 History of hypertension 1 History of vascular disease Return in about 3 months (around 05/22/2024) for Dr. Hughes or APRN. Suzi House APRN.CNP Medical Decision Making: Problems: Moderate: 2+ stable chronic illnesses Data: Unique source(s) for external note(s) reviewed: 3+ Unique test result(s) reviewed: 3+ Unique test(s) ordered: 1 Risk: Low: Low risk from testing/treatment Moderate: Drug management Medical Decision Making Level: 4 - Moderate The above note was partially created using a dictation recognition software. A reasonable attempt has been made to correct any errors. documented in this encounterRegional [facility] Center11-08-2024 NoteHNO ID: [id number] Author: SUZI HOUSE APRN.MERCHANDISE FLOW TEAM LEADER Service: ? Author Type: Nurse Practitioner Type: Progress Notes Filed: 02/20/2024 12:19 Note Text: [facility] Electrophysiology PRIMARY CARE PHYSICIAN: Bharat Coronado [address] [place] [address] CHIEF COMPLAINT: Cardiovascular medicine follow-up for arrhythmia. HISTORY OF PRESENT ILLNESS: Mr. Finch is a 58 year old male who presents today for follow-up regarding arrhythmia. History copied from previous notes, edited as needed: Dr. Hughes office visit 09/12/2023: Mr. Finch is a 57 year old male who presents today for evaluation, accompanied by janna. He states he has had atrial fibrillation for a couple years now. Recently treated with amiodarone, diltiazem was discontinued at that time. He states he took the amiodarone for 8 days. He states the drug made him feel terrible so he stopped taking it. States amiodarone is a terrible drug. Previously was on dronedarone. He has had issues with rapid heart rates, at other times slow rates. A pacemaker was implanted in April 2022 for sick sinus syndrome. He had cardioversion in [facility] 09/04/2023, sinus rhythm lasted for only a couple days and then the atrial fibrillation recurred. Sometimes can tell when in the atrial fibrillation especially with tachycardia. Another cardioversion was done a couple years ago, was in normal rhythm for awhile. He has CAD, previous percutaneous interventions. He states he just recently had another coronary procedure, last PCI/stent was 08/19/2023. He is referred for evaluation of management of the atrial fibrillation. [facility] notes mention the possibility of AV node catheter ablation. IMPRESSION: Mr. Finch has symptomatic persistent atrial fibrillation. I had a detailed discussion with Mr. Finch and his fiance regarding atrial fibrillation and its management. I reviewed the cornerstones or pillars of management including stroke prevention, ventricular response rate control, atrial rhythm control and patient modifiable risk factors and lifestyle changes relevant to atrial fibrillation. Ventricular rates are not well controlled right now. The diltiazem was stopped when the amiodarone was initiated recently, but now he stopped taking it due to bothersome symptoms that he attributed to the amiodarone. I think he should resume the diltiazem for now. With failure of antiarrhythmic drug therapy and/or poor tolerance to it, we should consider catheter ablation of the atrial fibrillation. Another option would be AV node catheter ablation, he already has a pacemaker but the complete heart block resulting from the AV node catheter ablation would then make him dependent on the pacemaker, with 100% ventricular pacing. It seems preferable to target the atrial fibrillation with ablation, particularly at his relatively young age. There is reasonable expectation for atrial fibrillation catheter ablation to be effective. I did discuss the atrial fibrillation ablation procedure with Mr. Finch in detail. He expressed understanding the procedure is performed without interruption of the oral anticoagulation (Eliquis and Plavix), and that the procedure is performed with the use of general anesthesia. Interval History: The patient underwent cryoballoon catheter ablation of atrial fibrillation with Dr. Hughes 11/12/2023, he was discharged the next day and metoprolol was reduced to 100 mg daily, and later further reduced to 50 mg daily in December. He presented to the [facility] ED in January, was found to be in atrial fibrillation with RVR, subsequently was transferred to [facility], reported taking Eliquis once daily instead of twice daily due to bruising, underwent JOSE ALBERTO guided cardioversion 01/27/[address] Mendoza, sinus rhythm was restored and he was discharged the next day. He reports doing well since the most recent hospitalization, states he has more energy and improved quality of life since the ablation procedure. He denies chest discomfort, palpitations, shortness of breath, lightheadedness, dizziness, near-syncope or syncope. He remains anticoagulated with Eliquis, denies any bleeding issues or falls. He reports compliance with BiPAP therapy. He reports having his 3-month post ablation testing performed at [facility], I see the Holter monitor report, however I do not see the echocardiogram report, we will see if Dr. Hughes has received and perhaps it is just not scanned in yet. The Holter monitor showed paced rhythm with an average heart rate of 64 bpm, range 58-100 bpm, infrequent PACs and PVCs, some brief episodes of SVT. 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 S/p CABG x3v 12/02/2008; stents 10/26/2018 Atrial fibrillation (HCC) Awareness under anesthesia Blood in (more content not included)...[facility]11-08-2024 Nurse Note* Tita Rodriguez MA - 02/20/2024 10:41 AM EST Patient denies any cardiac issues or symptoms. [facility]* Tita Rodriguez MA - 02/20/2024 10:41 AM EST Patient denies any cardiac issues or symptoms. documented in this encounterRegional Medical Center11-04-2024 Note* Addendum Note - Wily Mcghee APRN.CNP - 02/16/2024 8:02 AM ESTAddended by: WILY MCGHEE on: 02/16/2024 08:02 AM Modules accepted: Orders [facility]11-04-20[facility] Miscellaneous Notes* Addendum Note - Wily Mcghee APRN.CNP - 02/16/2024 8:02 AM ESTAddended by: WILY MCGHEE on: 02/16/2024 08:02 AM Modules accepted: Orders documented in this encounterRegional Medical Center11-04-2024 History of Present illness Narrative* Wily Mcghee APRN.CNP - 02/16/2024 7:40 AM EST Chief Complaint Patient presents with: Follow Up: ER [facility] Hospital F/u Eda NOONANIB HPI Bharat Finch is a 58 year old male who presents here today for Chronic Medical Conditions. and ER Follow Up. Patient to [facility] ER recently for atrial fibrillation. He has an ablation in November. In the most recent visit to the ER, he was cardioverted after sent to [facility]. He is feeling much better. More energy. Has follow up this week with cardiology History of hypogonadism. Due for testosterone check. Using Androl gel. Admits not sleeping the best, but could be to worry about the atrial fib. Feels like he has more energy. Due for lipid panel screening Due for colon cancer screening. Past medical history, appointments, medications, allergies reviewed. EXAM: BP 138/78 Pulse 60 Resp 16 Wt 109.8 kg (242 lb) SpO2 97% BMI 35.74 kg/m General Appearance: Well appearing, alert, in no acute distress, well-hydrated, well nourished.. Lungs: Lungs clear to auscultation. No wheezing, rhonchi, rales.. Heart: RRR without murmur, gallop, or rubs. No ectopy. Latest Ref Rng 11/13/2023 01/26/2024 01/27/2024 WBC 3.70 - 11.00 k/uL 11.09 (H) 6.75 RBC 4.20 - 6.00 m/uL 4.65 4.76 Hemoglobin 13.0 - 17.0 g/dL 13.6 13.9 Hematocrit 39.0 - 51.0 % 42.0 42.5 MCV 80.0 - 100.0 fL 90.3 89.3 MCH 26.0 - 34.0 pg 29.2 29.2 MCHC 30.5 - 36.0 g/dL 32.4 32.7 RDW-CV 11.5 - 15.0 % 15.6 (H) 15.0 Platelet Count 150 - 400 k/uL 209 145 (L) MPV 9.0 - 12.7 fL 11.2 9.8 Absolute nRBC <0.01 k/uL <0.01 <0.01 Glucose 74 - 99 mg/dL 165 (H) 140 (H) BUN 9 - 24 mg/dL 22 16 Creatinine 0.73 - 1.22 mg/dL 1.32 (H) 1.09 Sodium 136 - 144 mmol/L 137 142 Potassium 3.7 - 5.1 mmol/L 4.5 4.3 Chloride 98 - 107 mmol/L 101 106 CO2 22 - 30 mmol/L 23 23 Anion Gap 8 - 15 mmol/L 13 13 Calcium 8.5 - 10.2 mg/dL 9.2 9.2 eGFR >=60 mL/min/1.73m 63 79 KATIE High Sensitivity <12 ng/L 145 (H) 164 (H) KATIE High Sensitivity 117 (H) Magnesium 1.7 - 2.3 mg/dL 1.8 TSH 0.270 - 4.200 mIU/L 1.630 ASSESSMENT/PLAN: 1. Hypogonadism in male - ICD9: 257.2, ICD10: E29.1 (primary diagnosis) -Continue AndroGel, check testosterone this morning. - TESTOSTERONE, FREE AND TOTAL, BY EQUILIBRIUM ULTRAFILTRATION MASS SPECTROMETRY 2. Atrial fibrillation, unspecified type (HCC) - ICD9: 427.31, ICD10: I48.91 -Continue following with cardiology - LIPID PANEL BASIC 3. Essential (primary) hypertension - ICD9: 401.9, ICD10: I10 - Controlled - Continue current medications - Recommend home blood pressure monitoring, to bring results to next visit - Encouraged sodium restriction, DASH or Mediterranean diet - Recommend regular aerobic exercise 4. Screening for colon cancer - ICD9: V76.51, ICD10: Z12.11 -Schedule colonoscopy - CONSULT TO GENERAL SURGERY Wily Mcghee APRN.KORINA RTO in 6 months, sooner if needed. This note was partly generated using [employer] voice recognition dictation and may contain some misspelled or inaccurate words missed on review. documented in this encounterRegional Medical Center11-04-2024 NoteHNO ID: [id number] Author: WILY MCGHEE APRN.CNP Service: ? Author Type: Nurse Practitioner Type: Progress Notes Filed: 02/16/2024 07:58 Note Text: Chief Complaint Patient presents with: Follow Up: ER [facility] Hospital F/u Eda APARICIO Bharat Finch is a 58 year old male who presents here today for Chronic Medical Conditions. and ER Follow Up. Patient to [facility] ER recently for atrial fibrillation. He has an ablation in November. In the most recent visit to the ER, he was cardioverted after sent to [facility]. He is feeling much better. More energy. Has follow up this week with cardiology History of hypogonadism. Due for testosterone check. Using Androl gel. Admits not sleeping the best, but could be to worry about the atrial fib. Feels like he has more energy. Due for lipid panel screening Due for colon cancer screening. Past medical history, appointments, medications, allergies reviewed. EXAM: BP 138/78 Pulse 60 Resp 16 Wt 109.8 kg (242 lb) SpO2 97% BMI 35.74 kg/m? General Appearance: Well appearing, alert, in no acute distress, well-hydrated, well nourished.. Lungs: Lungs clear to auscultation. No wheezing, rhonchi, rales.. Heart: RRR without murmur, gallop, or rubs. No ectopy. Latest Ref Rng 11/13/2023 01/26/2024 01/27/2024 WBC 3.70 - 11.00 k/uL 11.09 (H) 6.75 RBC 4.20 - 6.00 m/uL 4.65 4.76 Hemoglobin 13.0 - 17.0 g/dL 13.6 13.9 Hematocrit 39.0 - 51.0 % 42.0 42.5 MCV 80.0 - 100.0 fL 90.3 89.3 MCH 26.0 - 34.0 pg 29.2 29.2 MCHC 30.5 - 36.0 g/dL 32.4 32.7 RDW-CV 11.5 - 15.0 % 15.6 (H) 15.0 Platelet Count 150 - 400 k/uL 209 145 (L) MPV 9.0 - 12.7 fL 11.2 9.8 Absolute nRBC <0.01 k/uL <0.01 <0.01 Glucose 74 - 99 mg/dL 165 (H) 140 (H) BUN 9 - 24 mg/dL 22 16 Creatinine 0.73 - 1.22 mg/dL 1.32 (H) 1.09 Sodium 136 - 144 mmol/L 137 142 Potassium 3.7 - 5.1 mmol/L 4.5 4.3 Chloride 98 - 107 mmol/L 101 106 CO2 22 - 30 mmol/L 23 23 Anion Gap 8 - 15 mmol/L 13 13 Calcium 8.5 - 10.2 mg/dL 9.2 9.2 eGFR >=60 mL/min/1.73m? 63 79 KATIE High Sensitivity <12 ng/L 145 (H) 164 (H) KATIE High Sensitivity 117 (H) Magnesium 1.7 - 2.3 mg/dL 1.8 TSH 0.270 - 4.200 mIU/L 1.630 ASSESSMENT/PLAN: 1. Hypogonadism in male - ICD9: 257.2, ICD10: E29.1 (primary diagnosis) -Continue AndroGel, check testosterone this morning. - TESTOSTERONE, FREE AND TOTAL, BY EQUILIBRIUM ULTRAFILTRATION MASS SPECTROMETRY 2. Atrial fibrillation, unspecified type (HCC) - ICD9: 427.31, ICD10: I48.91 -Continue following with cardiology - LIPID PANEL BASIC 3. Essential (primary) hypertension - ICD9: 401.9, ICD10: I10 - Controlled - Continue current medications - Recommend home blood pressure monitoring, to bring results to next visit - Encouraged sodium restriction, DASH or Mediterranean diet - Recommend regular aerobic exercise 4. 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 This note was partly generated using [employer]Search voice recognition dictation and may contain some misspelled or inaccurate words missed on review.[facility]10-29-[facility]24 Telephone encounter Note* Telephone Encounter - Vinay - 02/10/2024 5:12 PM EDT Record ID: [id number] Patient name: Bharat Finch Date: February 10, 2024 - 12:12 Administered by: VINAY Protocol: -> Great! Now we are in a secure chat environment. Protecting your health information is important to us. Ok, let's get started. Please verify your name and date of . Please click on the button with your first name. -> Bharat Got it. On to the next question... Select the button with your last name. -> Stef Got it, thank you. Please enter your date of in MM/DD/YYYY format:(e.g., 05/02/1969 for May 02, 1969) -> 1965 Thank you for verifying your information. I'd like to ask you a few questions about how your recovery is going. Have there been any new or worsening symptoms since your last response? -> No I'm glad to hear that. Thank you for your time and for allowing us to care for you. Please be sure to reach out to your provider for any further symptoms or needs. Please rate your satisfaction with the care and support you have received from us since you have been home: (scale 1-5; 1 worst and 5 best) -> 5 Please tell me what you liked best about your experience: -> the people Please tell me what you liked least about your experience: -> nothing [facility] Miscellaneous Notes* Telephone Encounter - Vinay - 02/10/2024 5:12 PM EDT Record ID: [id number] Patient name: Bharat Finch Date: February 10, 2024 - 12:12 Administered by: VINAY Protocol: -> Great! Now we are in a secure chat environment. Protecting your health information is important to us. Ok, let's get started. Please verify your name and date of . Please click on the button with your first name. -> Bharat Got it. On to the next question... Select the button with your last name. -> Stef Got it, thank you. Please enter your date of in MM/DD/YYYY format:(e.g., 05/02/1969 for May 02, 1969) -> 1965 Thank you for verifying your information. I'd like to ask you a few questions about how your recovery is going. Have there been any new or worsening symptoms since your last response? -> No I'm glad to hear that. Thank you for your time and for allowing us to care for you. Please be sure to reach out to your provider for any further symptoms or needs. Please rate your satisfaction with the care and support you have received from us since you have been home: (scale 1-5; 1 worst and 5 best) -> 5 Please tell me what you liked best about your experience: -> the people Please tell me what you liked least about your experience: -> nothing documented in this encounterRegional Medical Center10-25-2024 Telephone encounter Note * Telephone Encounter - Ayden Suh RN - 02/06/2024 3:22 PM EDT Transitional Care Management (TCM) [facility] Monitoring [facility] Provider Action / FYI: na SUMMARY: Outreach type: INITIAL OUTREACH Discharge Network Status: In-Network Discharge Source of Patient: [facility] TCM Discharge Report Patient discharged from [facility] on 01.28.24. Admitted for Atrial arrhythmia . . Contact made with patient: No, for Follow-up - end outreach and close encounter. Ayden Suh RN February 06, 2024 3:24 PM [facility] Miscellaneous Notes* Telephone Encounter - Ayden Suh RN - 02/06/2024 3:22 PM EDT Transitional Care Management (TCM) [facility] Provider Action / FYI: na SUMMARY: Outreach type: INITIAL OUTREACH Discharge Network Status: In-Network Discharge Source of Patient: [facility] TCM Discharge Report Patient discharged from [facility] on 01.28.24. Admitted for Atrial arrhythmia . . Contact made with patient: No, for Follow-up - end outreach and close encounter. Ayden Suh RN February 06, 2024 3:24 PM documented in this encounterRegional Medical Center10-21-2024 Telephone encounter Note * Telephone Encounter - Kelvin Reyes - 02/02/2024 3:52 PM EDT Transitional Care Management (TCM) [facility] Provider Action / FYI: na SUMMARY: Outreach type: INITIAL OUTREACH Discharge Network Status: In-Network Discharge Source of Patient: [facility] TCM Discharge Report Patient discharged from [facility] on 01.28.24. Admitted for Atrial arrhythmia . Contact made with patient: No - next outreach attempt will be on next business day. Kelvin Reyes February 02, 2024 3:54 PM [facility]10[facility]21[facility]24 Miscellaneous Notes* Telephone Encounter - Kelvin Reyes - 02/02/2024 3:52 PM EDT Transitional Care Management (TCM) [facility] Monitoring Program Provider Action / FYI: na SUMMARY: Outreach type: INITIAL OUTREACH Discharge Network Status: In-Network Discharge Source of Patient: [facility] TCM Discharge Report Patient discharged from [facility] on 01.28.24. Admitted for Atrial arrhythmia . Contact made with patient: No - next outreach attempt will be on next . Kelvin Reyes February 02, 2024 3:54 PM documented in [facility] encounterReg[facility] Center10-18-2024 Telephone encounter Note * Telephone Encounter - Michelle Shepherd MA - 01/30/2024 9:28 AM EDT Spoke with pt, appt made and he was advised to get testosterone labs done first thing in the morning whenver he comes to do the tests. Reminder mailed to pt home. Michelle Shepherd MA [facility]10-18-2024 Miscellaneous Notes* Telephone Encounter - Michelle Shepherd MA - 01/30/2024 9:28 AM EDT Spoke with pt, appt made and he was advised to get testosterone labs done first thing in the morning whenver he comes to do the tests. Reminder mailed to pt home. Michelle Shepherd MA * Telephone Encounter - Bharat Coronado MD - 01/30/2024 9:03 AM EDT OK to refill as ordered Needs to get testosterone level checked (order placed for this) and due for office visit Bharat Coronado MD * Telephone Encounter - Wandy Huff LPN - 01/30/2024 8:29 AM EDT Patient has been identified by name and date of : Patient phones for refill(s): Requested Prescriptions Pending Prescriptions Disp Refills testosterone (ANDROGEL) 50 mg / 5 g (1%) 30 Packet 2 Sig: Apply 1 Packet as directed once daily for 90 days. Date of last office visit in primary care: 08/14/2023 Date of next office visit in primary care: Visit date not found Please advise. Thank you. Wandy Huff LPN. documented in this encounterRegional Medical Center10-18-2024 Telephone encounter Note * Telephone Encounter - Bharat Coronado MD - 01/30/2024 9:03 AM EDT OK to refill as ordered Needs to get testosterone level checked (order placed for this) and due for office visit Bharat Coronado MD [facility]10-18-2024 Telephone encounter Note* Telephone Encounter - Wandy Huff LPN - 01/30/2024 8:29 AM EDT Patient has been identified by name and date of : Patient phones for refill(s): Requested Prescriptions Pending Prescriptions Disp Refills testosterone (ANDROGEL) 50 mg / 5 g (1%) 30 Packet 2 Sig: Apply 1 Packet as directed once daily for 90 days. Date of last office visit in primary care: 08/14/2023 Date of next office visit in primary care: Visit date not found Please advise. Thank you. Wandy Huff LPN. [facility]10-16-2024 NoteHNO ID: [id number] Author: NANDINI PINA MD Service: Hospital Medicine Author Type: Physician Type: Progress Notes Filed: 01/28/2024 14:42 Note Text: INPATIENT PROGRESS NOTE CHIEF COMPLAINT: palpitations INTERVAL HPI: No new complaints. Pt had successful cardioversion yesterday Denies CP/SOB or palpitations PHYSICAL EXAM: BP 127/71 Pulse 61 Temp (Src) 97.8 (Temporal) Resp 18 Ht 5' 9 (1.75m) Wt 246 lb 7.6 oz (111.8kg) SpO2 100% BMI 36.38 kg/(m2). O2 Therapy: Room Air GENERAL: Alert, no distress, cooperative LUNGS: Lungs clear to auscultation, Good diaphragmatic excursion CARDIAC: Normal S1 and S2; no rubs, murmurs, or gallops, paced rhythm on tele ABDOMEN: Abdomen soft, non-tender, BS normal, No masses or organomegaly EXTREMITIES: no edema DATA: Diagnostic tests reviewed for today's visit: CBC, Coags, BMP, Mg, Phos Recent Labs 01/27/24 0542 WBC 6.75 HB 13.9 HCT 42.5 PLT 145* NA 142 K 4.3 CHLOR 106 CO2 23 BUN 16 CREAT 1.09 GLUC 140* CA 9.2 MG 1.8 Problem List Atrial arrhythmia (POA: Yes) Assessment/Plan Atrial fibrillation/flutter with RVR - SSS s/p pacemaker (2022) H/o ablation in October. Pt seen by EP and underwent successful cardioversion yesterday C/w eliquis for OAC # CAD with h/o CABG #ALICIA- c/w Bipap #Chronic back pain -cont home meds: norco, tizanidine, tylenol prn # elevated troponin- suspect demand ischemia. Tr 117->145->164. JOSE ALBERTO done yest shows LVEF of 40%, decreased from 50% on an external echo done earlier this year. Pt had cath in august with stent placement . Suspect cardiomyopathy related to tachyarrhythmia. Will get cardiology input regarding ischemic eval and GDMT for his cardiomyopathy Pt remains CP free. Addendum- Pt remains CP free. Has appt with his own category consultant tomorrow. Will DC home today Plan of care discussed with: Provider, RN, Patient. SIGNATURE: Nandini Pina MD PATIENT NAME: Bharat Finch DATE: January 28, 2024 TIME: 11:54 AM PAGER:[facility]10-16-2024 NoteHNO ID: [id number] Author: MCKENZIE DOOLEY RN Service: Care Management Author Type: Registered Nurse Type: Care Mgt Progress Note Filed: 01/28/2024 10:14 Note Text: CARE MANAGEMENT PROGRESS NOTE SERVICE DATE: 01/28/2024 SERVICE TIME: 10:13 AM LOS: 2 days At this time, plan is home with self care, family to transport. CM to follow for transitional needs. SIGNATURE: Mckenzie Dooley RN PATIENT NAME: Bharat Finch DATE: January 28, 2024 TIME: 10:13 AM PAGER/CONTACT #: [phone] Light [facility] Hill [facility] 01-27-2024 NoteHNO ID: [id number] Author: MCKENZIE DOOLEY RN Service: Care Management Author Type: Registered Nurse Type: Care Mgt Initial Assessment Filed: 01/27/2024 16:39 Note Text: CARE MANAGEMENT: ASSESSMENT AND DISCHARGE PLAN SERVICE DATE: January 27, 2024 SERVICE TIME: 4:38 PM PCP: Bharat Coronado MD Primary Contact: Extended Emergency Contact Information Primary Emergency Contact: Rocky Brock Mobile Relation: Significant other Admission Status: Inpatient [place] Discharge Planning requested by: Per Department Practice Potential Transition Plans Home;No Services Indicated Advance Directives Current Advance Directive: None Metal Drawer Attempted to Assist with AD Completion: Yes Action: Education Provided Current Living Arrangements and Support Lives with: Spouse/significant other Type of Residence: Private Residence (House) Does the patient have to climb stairs at home?: Yes;stairs outside the home Support: Family members How do you manage to accomplish the following: Independent: Ambulation;Bathe/Shower;Dress;Meals/Meal Prep;Going to the bathroom;Medication Management;Transportation to appointments/community Current Services/Equipment Current Post-Acute Service(s): None Discharge Planning Patient Goal(s): Be able to go home, Independent living, General wellness Odell of Choice Explained: Odell of Choice Given: No Reason Not Given: No placements necessary Are you interested in bedside delivery of your medications? No Discharge Planning Participant(s): Patient Patient/Family Comments: Caregiver Assessment: Caregiver is ready, willing and able to meet the patient's needs as recommended by the inter-professional team: No Caregiver needed Transport at Discharge: Transportation Arrangements: Car Needs Prior to Discharge: Post-Acute Discharge Plan: Met with patient at the bedside. 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 Denies current use of HHC. DME -. Denies financial assistance needs. At this time plan is home with self care, family to transport. CM to follow for transitional needs SIGNATURE: Mckenzie Dooley RN PATIENT NAME: Bharat Finch DATE: January 27, 2024 TIME: 4:38 PM CONTACT #: [phone] Light [facility] Hill Hospital10-15-2024 Note HNO ID: [id number] Author: NANDINI PINA MD Service: Hospital Medicine Author Type: Physician Type: Progress Notes Filed: 01/27/2024 13:01 Note Text: INPATIENT PROGRESS NOTE CHIEF COMPLAINT: palpitations INTERVAL HPI: Pt denies any complaints today No more palpitations On cardizem gtt for rate control. PHYSICAL EXAM: BP 142/75 Pulse 80 Temp (Src) 98.3 (Axillary) Resp 18 Ht 5' 9 (1.75m) Wt 246 lb 11.1 oz (111.9kg) SpO2 99% BMI 36.41 kg/(m2). O2 Therapy: Nasal Cannula, Liters: 2 GENERAL: Alert, no distress, cooperative LUNGS: Lungs clear to auscultation, Good diaphragmatic excursion CARDIAC: irregularly irregular HR ABDOMEN: Abdomen soft, non-tender, BS normal, No masses or organomegaly EXTREMITIES: no edema DATA: Diagnostic tests reviewed for today's visit: CBC, Coags, BMP, Mg, Phos Recent Labs 01/27/24 0542 WBC 6.75 HB 13.9 HCT 42.5 PLT 145* NA 142 K 4.3 CHLOR 106 CO2 23 BUN 16 CREAT 1.09 GLUC 140* CA 9.2 MG 1.8 Problem List Atrial arrhythmia (POA: Yes) Assessment/Plan Atrial fibrillation/flutter with RVR - SSS s/p pacemaker (2022) H/o ablation in October. Now rate controlled woth cardizem gtt. Pt seen by EP> plan for CV today On eliquis for OAC # CAD with h/o CABG #ALICIA- c/w Bipap #Chronic back pain -cont home meds: norco, tizanidine, tylenol prn # elevated troponin- suspect demand ischemia. Tr 117->145->164. Will get an echocardiogram Plan of care discussed with: Provider, RN, Patient. SIGNATURE: Nandini Pina MD PATIENT NAME: Bharat Finch DATE: January 27, 2024 TIME: 12:57 PM PAGER:[facility]09-10-2024 Telephone encounter Note* Telephone Encounter - Nae Ceron LPN - 12/23/2023 2:12 PM EDT Form faxed to number provided on form [facility] Miscellaneous Notes* Telephone Encounter - Nae Ceron LPN - 12/23/2023 2:12 PM EDT Form faxed to number provided on form * Telephone Encounter - Wily Mcghee APRN.CNP - 12/23/2023 1:46 PM EDT Form signed Wily Mcghee APRN.CNP * Telephone Encounter - Tc Evans MA - 12/23/2023 1:32 PM EDT Type of form: Medical Necessity for PAP Device & Supplies Form received via fax When form is completed, Fax form to [phone] [facility]. Form has been forwarded to Providers office. Tc Evans MA documented in this encounterRegional Medical Center09-10-2024 Telephone encounter Note * Telephone Encounter - Wily Mcghee APRN.CNP - 12/23/2023 1:46 PM EDT Form signed Wily Mcghee APRN.CNP [facility] Work Phone: [phone]) 273-944009-10-2024 Telephone encounter Note* Telephone Encounter - Tc Evans MA - 12/23/2023 1:32 PM EDT Type of form: Medical Necessity for PAP Device & Supplies Form received via fax When form is completed, Fax form to [phone] [facility] [place]. Form has been forwarded to Providers office. Tc Evans MA [facility]08-16-2024 Telephone encounter Note* Telephone Encounter - Juan Ugarte - 11/28/2023 1:30 PM EDT Post PVAI orders pended for signature [facility]08-16-2024 Miscellaneous Notes* Telephone Encounter - Juan Ugarte - 11/28/2023 1:30 PM EDT Post PVAI orders pended for signature documented in this encounterRegional Medical Center08-02-2024 Telephone encounter Note * Telephone Encounter - Davonte Augustin APRN.CNP - 11/14/2023 1:46 PM EDT Spoke with Rae RODRÍGUEZ at Dr. Enriquez's office. She was made aware of patient's recent cryo ablation withDr. Hughes on 11/12/2023. We discussed patient's creatinine was slightly elevated on 11/13/2023 at1.32 compared to prior days level 1.17. I advised patient should have a electrolyte panel recheckedin 1 week. Rae RODRÍGUEZ verbalized understanding. Davonte Augustin APRN.CNP November 14, 2023 1:48 PM [facility]08-02-2024 Miscellaneous Notes* Telephone Encounter - Davonte Augustin APRN.KORINA - 11/14/2023 1:46 PM EDT Spoke with Rae RODRÍGUEZ at Dr. Enriquez's office. She was made aware of patient's recent cryo ablation withDr. Hughes on 11/12/2023. We discussed patient's creatinine was slightly elevated on 11/13/2023 at1.32 compared to prior days level 1.17. I advised patient should have a electrolyte panel recheckedin 1 week. Rae RODRÍGUEZ verbalized understanding. Davonte Augustin APRN.CNP November 14, 2023 1:48 PM documented in this encounterRegional Medical Center08-01-2024 NoteHNO ID: [id number] Author: HONORIO RESTREPO RN Service: Care Management Author Type: Registered Nurse Type: Care Mgt Initial Assessment Filed: 11/13/2023 12:09 Note Text: CARE MANAGEMENT: ASSESSMENT AND DISCHARGE PLAN SERVICE DATE: November 13, 2023 SERVICE TIME: 10:59 AM PCP: Bharat Coronado MD Primary Contact: Extended Emergency Contact Information Primary Emergency Contact: Rocky Brock Mobile Relation: Significant other Admission Status: Ambulatory Surgery Insurance Provider: [facility] Discharge Planning requested by: Per Department Practice Potential Transition Plans Home Advance Directives Current Advance Directive: None Metal Drawer Attempted to Assist with AD Completion: Yes Action: Education Provided Current Living Arrangements and Support Lives with: Spouse/significant other Type of Residence: Private Residence (House) Does the patient have to climb stairs at home?: Yes;stairs outside the home;stairs within the home Support: Family members, Spouse/significant other How do you manage to accomplish the following: Independent: Ambulation;Bathe/Shower;Dress;Meals/Meal Prep;Going to the bathroom;Medication Management;Transportation to appointments/community Current Services/Equipment Current Post-Acute Service(s): None Discharge Planning Patient Goal(s): Be able to go home, General wellness Odell of Choice Explained: Odell of Choice Given: No Reason Not Given: No placements necessary Are you interested in bedside delivery of your medications? No Discharge Planning Participant(s): Spouse/significant other;Patient Patient/Family Comments: Caregiver Assessment: Caregiver is ready, willing and able to meet the patient's needs as recommended by the inter-professional team: No Caregiver needed Transport at Discharge: Transportation Arrangements: Car Needs Prior to Discharge: Needs Prior to Discharge: None Post-Acute Discharge Plan: Per chart review, patient is a 58 year old male status post catheter ablation of atrial fibrillation Met with patient and fiance at bedside; introduced self and CM role. Prior to admission, patient was independent with ADLs. The patient declined using any assistive equipment. 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 At this time, the patient has no skilled needs. CM will continue to follow for post-acute needs based on hospital course. The patient will need transportation arranged at d/c. Patient is discharging with no skilled needs SIGNATURE: Honorio Restrepo RN PATIENT NAME: Bharat Finch DATE: November 13, 2023 TIME: 10:59 AM CONTACT #: [phone] Light Blue Hill Hospital07-31-2024 NoteHNO ID: [id number] Author: JERMAINE WHITTINGTON APRN.FISHING HAND Service: Anesthesiology Author Type: Nurse Manager [employer] Type: Anesthesia Procedure Notes Filed: 11/12/2023 09:40 Note Text: ANESTHESIOLOGY PROCEDURE NOTE Airway General Information Procedure Start Time/Medication Administration: 11/12/2023 9:32 AM Procedure End Time: 11/12/2023 9:37 AM Patient location during procedure: OR Timeout Performed Pre-procedure: timeout performed Consent Obtained: Yes Patient identity confirmed: arm band Staffing Anesthesiologist: Stephanie Ivey MD FISHING HAND: Jermaine Whittington APRN.FISHING HAND Performed by: SHAKILA Indications and Patient Condition Indications for airway management: anesthesia Preoxygenated: yes anesthesia circuit Patient position: sniffing Method: asleep Final Airway Details Final airway type: endotracheal airway Final Endotracheal Airway: ETT Cuffed: yes Successful intubation technique: video laryngoscopy Devices used: Pictorious Endotracheal tube insertion site: oral Blade: Pati Blade size: #4 ETT size (mm): 7.5 Measured from: lips Measurement (cm): 23 Placement verified by: chest auscultation and capnometry Cormack-Lehane Classification: grade IIa - partial view of glottis Number of attempts at approach: 1 SIGNATURE: Jermaine Whittington APRN.CRNA PATIENT NAME: Bharat Finch DATE: November 12, 2023 TIME: 9:40 AM CSN: [id number] Light Blue Hill Hospital07-12-2024 Telephone encounter Note* Telephone Encounter - Lani Walker RN - 10/24/2023 1:57 PM EDT Pt added to procedure board Lani Walker RN [facility]07-12-2024 Miscellaneous Notes* Telephone Encounter - Lani Walker RN - 10/24/2023 1:57 PM EDT Pt added to procedure board Lani Walker RN * Telephone Encounter - Juan Ugarte - 10/24/2023 12:09 PM EDT Patient is scheduled for a PVI Ablation on 11/[address] Hughes. The hospital will call the daybefore between 2-5pm with your arrival time. You should not eat or drink after midnight the day before the procedure. 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 You should continue to take medications as prescribed the morning of the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 NECK: Negative for lumps, goiter, pain and significant neck swelling RESPIRATORY: + Cough/SOB CARDIOVASCULAR: Negative for chest pain, leg swelling, [...] depression, anxiety, or suicidal ideation. EXAM: BP 118/70 Pulse 102 Resp 16 Wt 111.1 kg (245 lb) SpO2 99% BMI 36.18 kg/m PHYSICAL EXAM: General Appearance: Well appearing, alert, in no acute distress, well-hydrated, well nourished. Skin: Skin color, texture, turgor normal, no suspicious rashes or lesions. Head: Normocephalic, no masses, lesions, tenderness or abnormalities. Eyes: Anicteric sclera. Extraocular movements are intact. Neck: Supple, no adenopathy; thyroid symmetric, normal size, no bruits. Lungs: Lungs clear to auscultation. No wheezing, rhonchi, rales. Cough. Heart: RRR without murmur, gallop, or rubs. No ectopy. Extremities: No deformities, edema, skin discoloration, clubbing or cyanosis. Good capillary refill. Peripheral Pulses: Capillary refill <2secs, strong peripheral pulses, Pulses palpable. Neurologic: Gait normal. Sensation grossly intact. ASSESSMENT/PLAN: 1. Bacterial pneumonia - ICD9: 482.9, ICD10: J15.9 - Continue antibiotics until finished - may continue with albuterol inhaler as needed. - May use OTC cold and cough medication as needed for symptom management. - Stay well-hydrated. - Get repeat chest x-ray later this month. - Contact the office with any worsening symptoms. - XR CHEST 2V FRONTAL/LAT Follow up pending test results or sooner as needed. Discussed treatment plan and patient voices understanding. Patient's questions answered appropriately. Medications and potential side effects were discussed and patient voices understanding. Suly Bah APRN.MERCH[employer]ISE [employer]AM LEADER This note was partially generated using [employer] recognition system. Note was reviewed for accuracy. There may be minor misspellings or grammar miscues with Dragon voice recognition. documented in this encounterRegional [facility] Center04-30-2024 History of Present illness Narrative* Santiago Aviles APRN.CNP - 08/12/2023 7:48 PM EDT Subjective HPI HPI Bharat Finch is a 57 year old male who presents today for CC of cough, sob, currently on doxy for pneumonia. This started 5-6 days ago. 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 S/p CABG x3v 12/02/2008; stents 10/26/2018 Atrial fibrillation (HCC) Awareness under anesthesia Blood in semen 2022 CHF (congestive heart failure) (HCC) Dyspnea on exertion Erectile dysfunction Essential hypertension History of cardioversion HLD (hyperlipidemia) Nonsustained paroxysmal ventricular tachycardia (HCC) ALICIA treated with BiPAP complaint Pacemaker 04/2022 for bradley/SSS [facility] [phone] PAF (paroxysmal atrial fibrillation) (HCC) Palpitations S/P CABG x 3 Sick sinus syndrome (HCC) Tachy-bradley syndrome (HCC) PAST SURGICAL HISTORY Procedure Laterality Date ANESTH,PACEMAKER INSERTION N/A 05/10/2022 Pacemaker placed CABG (3) VEIN GRAFTS & ARTERIAL GRAFT(S) 12/02/2008 CABG x3v SHEIKH-D2, Sequential SVG-LPDA and OM2 LEFT HEART CATH,PERCUTANEOUS 10/26/2018 PAST SURGICAL HISTORY OF N/A 02/05/2021 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 JARDIANCE 10 mg tablet doxycycline (VIBRA-TABS) 100 mg tablet Take 1 tablet by mouth two times a day for 10 days. albuterol HFA (VENTOLIN HFA) 90 mcg/actuation inhaler Inhale 2 Puffs as instructed every 4 hours asneeded for wheezing/shortness of breath. benzonatate (TESSALON PERLE) 100 mg capsule Take 1 capsule by mouth every 8 hours as needed for cough for up to 15 days. testosterone (ANDROGEL) 50 mg / 5 g (1%) Apply 1 Packet as directed once daily for 90 days. ELIQUIS 5 mg tab(s) Take 1 tablet by mouth every 12 hours 6am/6pm. HYDROcodone-acetaminophen (NORCO) 5-325 mg per tablet Take 1 tablet by mouth twice daily as needed. metoprolol tartrate, short acting, (LOPRESSOR) 50 mg tablet Take 1 tablet by mouth twice daily. furosemide (LASIX) 40 mg tablet Take 1 tablet by mouth once daily. aspirin, enteric coated (ASPIRIN, ENTERIC COATED) 81 mg EC tablet Take 1 tablet by mouth once daily. atorvastatin (LIPITOR) 40 mg tablet Take 40 mg by mouth daily at bedtime. cefUROXime (CEFTIN) 500 mg tablet Take 1 tablet by mouth two times a day for 7 days. predniSONE (DELTASONE) 20 mg tablet Take 1 tablet by mouth once daily for 5 days. (Patient not taking: Reported on 08/12/2023) codeine-guaiFENesin (ROBITUSSIN AC) 10-100 mg/5 mL syrup Take 10 mL by mouth three times a day as needed for cough for up to 7 days. (Patient not taking: Reported on 08/12/2023) lisinopril (ZESTRIL) 10 mg tablet Take 1 tablet by mouth once daily. (Patient not taking: Reported on 08/12/2023) tiZANidine (ZANAFLEX) 4 mg tablet Take 4 mg by mouth every evening. simvastatin (ZOCOR) 40 mg tablet Take 1 tablet by mouth once daily. (Patient not taking: Reported on 08/12/2023) FAMILY HISTORY Problem Relation Age of Onset Diabetes Mother Ischemic Heart Disease Father Diabetes Father Cancer Father other (brain aneurysm rupture) Brother Social History Tobacco Use Smoking status: Never Smokeless tobacco: Never Vaping Use Vaping Use: Never used Substance Use Topics Alcohol use: Not Currently Comment: few times a month Drug use: Not Currently Types: Marijuana Review of Systems Constitutional: Positive for fever and malaise/fatigue. Respiratory: Positive for cough, sputum production and shortness of breath. Cardiovascular: Negative for chest pain. Skin: Negative for itching and rash. Objective Blood pressure 128/82, pulse 68, temperature 37.8 C (100.1 F), resp. rate 18, weight 111.4 kg (245 lb 9.5 oz), SpO2 97%. Physical Exam Constitutional: General: He is not in acute distress. Appearance: He is not toxic-appearing or diaphoretic. HENT: Head: Normocephalic and atraumatic. Cardiovascular: Rate and Rhythm: Normal rate and regular rhythm. Heart sounds: Normal heart sounds, S1 normal and S2 normal. Pulmonary: Effort: Pulmonary effort is normal. Breath sounds: Examination of the right-lower field reveals decreased breath sounds. Examination ofthe left-lower field reveals decreased breath sounds. Decreased breath sounds present. No wheezing,rhonchi or rales. Lymphadenopathy: Cervical: No cervical adenopathy. Right cervical: No superficial cervical adenopathy. Left cervical: No superficial cervical adenopathy. Neurological: Mental Status: He is alert and oriented to person, place, and time. Gait: Gait is intact. ASSESSMENT/PLAN: 1. Community acquired pneumonia, unspecified laterality - ICD9: 486, ICD10: J18.9 Start ceftin to complete dual therapy for pneumonia Creatinine clearance calculated to 62 per online calculator Schedule f/u with pcp in 2 days. Urgent f/u for worsening s/s - CEFUROXIME AXETIL 500 MG TABLET Santiago Aviles APRN.KORINA [facility] Telephone encounter Note * Telephone Encounter - Tc Evans MA - 08/07/2023 5:03 PM EDT Called and spoke with Pharmacist, notified him of message below from Provider. Tc Evans MA [facility] Miscellaneous Notes* Telephone Encounter - Tc Evans MA - 08/07/2023 5:03 PM EDT Called and spoke with Pharmacist, notified him of message below from Provider. Tc Evans MA * Telephone Encounter - Bharat Coronado MD - 08/07/2023 4:54 PM EDT OK; hold off on the cough medicine and see if he improves with the prednisone Bharat Coronado MD * Telephone Encounter - Teresa Hernandez OCCA - 08/07/2023 4:44 PM EDT TC to pharmacist who is concerned that patient will be removed from pain management if medication is filled. Concern is that a narcotic is being filled by someone other than the pain management provider. Pharmacist asking if provider is still wanting to fill medication after reviewing above, please resend script as it has been cancelled at the pharmacy. SILKE Mckenzie * Telephone Encounter - Bharat Coronado MD - 08/07/2023 4:32 PM EDT OK to call pharmacy and give OK to fill cough med; we are aware of his hydrocodone prescriptions Bharat Coronado MD * Telephone Encounter - Tc Evans MA - 08/07/2023 4:19 PM EDT See Pharm note for this patient and medication. Pt was seen today and prescribed medication, but Rxwas discontinued. You sent in a new prescription to the Pharmacy, but this came back. Please review, Suly is out of the office until tomorrow. Tc Evans MA documented in [facility]Reg[facility]04-[facility]-2024 Telephone encounter Note * Telephone Encounter - Bharat Coronado MD - 08/07/2023 4:54 PM EDT OK; hold off on the cough medicine and see if he improves with the prednisone Bharat Coronado MD [facility] Telephone encounter Note* Telephone Encounter - Teresa Hernandez OCCA - 08/07/2023 4:44 PM EDT TC to pharmacist who is concerned that patient will be removed from pain management if medication is filled. Concern is that a narcotic is being filled by someone other than the pain management provider. Pharmacist asking if provider is still wanting to fill medication after reviewing above, please resend script as it has been cancelled at the pharmacy. SILKE Mckenzie [facility] Tele[facility] Note* Telephone Encounter - Bharat Coronado MD - 08/07/2023 4:32 PM EDT OK to call pharmacy and give OK to fill cough med; we are aware of his hydrocodone prescriptions Bharat Coronado MD [facility] Telephone encounter Note* Telephone Encounter - Tc Evans MA - 08/07/2023 4:19 PM EDT See Pharm note for this patient and medication. Pt was seen today and prescribed medication, but Rxwas discontinued. You sent in a new prescription to the Pharmacy, but this came back. Please review, Suly is out of the office until tomorrow. Tc Evnas MA [facility] Telephone encounter Note* Telephone Encounter - Suly Bah APRN.CNP - 08/07/2023 3:06 PM EDT The following approved medication requests have been transmitted electronically. Requested Prescriptions Signed Prescriptions Disp Refills codeine-guaiFENesin (ROBITUSSIN AC) 10-100 mg/5 mL syrup 210 mL 0 Sig: Take 10 mL by mouth three times a day as needed for cough for up to 7 days. Authorizing Provider: SULY BAH APRN.CNP PDMP website checked and validated. All prescriptions have been APPROPRIATELY filled. No suspiciousactivity was identified. 08/07/2023 by Suly Bah APRN.CNP [facility] Miscellaneous Notes* Telephone Encounter - Suly Bah APRN.CNP - 08/07/2023 3:06 PM EDT The following approved medication requests have been transmitted electronically. Requested Prescriptions Signed Prescriptions Disp Refills codeine-guaiFENesin (ROBITUSSIN AC) 10-100 mg/5 mL syrup 210 mL 0 Sig: Take 10 mL by mouth three times a day as needed for cough for up to 7 days. Authorizing Provider: SULY BAH APRN.CNP PDMP website checked and validated. All prescriptions have been APPROPRIATELY filled. No suspiciousactivity was identified. 08/07/2023 by Suly Bah APRN.CNP * Telephone Encounter - Suyapa Mata LPN - 08/07/2023 2:50 PM EDT [place] pharmacist from [facility] pharmacy calling the Codeine- guaifenesin 10-200 mg rx do they do not have. The pharmacy has the 10-100 mg in stock. Did HUSBANDRY PERSON want to change the rx? Please advise documented in this encounterReg[facility]04-25-2024 Telephone encounter Note * Telephone Encounter - Suyapa Mata LPN - 08/07/2023 2:50 PM EDT [place] pharmacist from [facility] pharmacy calling the Codeine- guaifenesin 10-200 mg rx do they do not have. The pharmacy has the 10-100 mg in stock. Did HUSBANDRY PERSON want to change the rx? Please advise [facility] Tele[facility] Note* Telephone Encounter - Sis Bhandari LPN - 08/07/2023 2:10 PM EDT Patient notified of results, verbalizes understanding of instructions. Sis Bhandari LPN [facility] Miscellaneous Notes* Telephone Encounter - Sis Bhandari LPN - 08/07/2023 2:10 PM EDT Patient notified of results, verbalizes understanding of instructions. Sis Bhandari LPN * Telephone Encounter - Suly Bah APRN.CNP - 08/07/2023 1:47 PM EDT Can you please call the patient and let him know that I got his chest x-ray results. Chest x-ray shows some right lower lobe opacities which is consistent with possible pneumonia. I would like him to continue with antibiotic and prednisone as discussed during office visit. Any worsening symptoms I want him to go to ER. Please let me know if he has any questions. Thank you. Suly Bah APRN.CNP documented in this encounterRegional Medical Center04-25-2024 Telephone encounter Note * Telephone Encounter - Suly Bah APRN.CNP - 08/07/2023 1:47 PM EDT Can you please call the patient and let him know that I got his chest x-ray results. Chest x-ray shows some right lower lobe opacities which is consistent with possible pneumonia. I would like him to continue with antibiotic and prednisone as discussed during office visit. Any worsening symptoms I want him to go to ER. Please let me know if he has any questions. Thank you. Suly Bah APRN.CNP [facility] History of Present illness Narrative* Xochitl Tyler RT(Devendra) - 08/07/2023 1:10 PM EDT Radiology Service Progress Note PATIENT NAME: Bharat Finch DATE OF SERVICE: August 07, 2023 TIME: 1:16 PM PATIENT IDENTITY VERIFICATION COMPLETED USING TWO (2) IDENTIFIERS: Name and Date of confirmedby patient verbally. FALL SCREENING: Has the patient had 2 falls in the last year or 1 fall with injury or currently using an Ambulatory Assistive Device (Walker, Cane, Wheelchair, Crutches, etc.)? No PATIENT GENDER DATA: Male PATIENT RELEVANT IMPLANT DATA REVIEWED: Yes PATIENT PRESENTS WITH AN IMPLANTABLE OR ATTACHED ORTHOTIC AND PROSTHETIC TECHNICIAN: No RADIOLOGY DEPARTMENT: General X-ray: Exam(s) Completed: Chest X-Ray PERIPHERAL IV DATA: Not applicable SIGNED BY: RT Ever(Devendra) August 07, 2023 1:16 PM documented in this encounterRegional Medical Center04-25-2024 Instructions* Patient Instructions* Suly Bah APRN.CNP - 08/07/2023 1:00 PM EDT Get xray completed Start prednisone burst, 20 mg daily for 5 days, take with food. Start Doxycycline twice daily for 10 days May use Codeine cough syrup as needed. May use albuterol inhaler as needed for shortness of breath or wheezing. Follow up pending test results or sooner as needed. documented in this encounterRegional [facility] Center04-25-2024 History of Present illness Narrative* Suly Bah APRN.KORINA - 08/07/2023 12:40 PM EDT This is a 57 year old male who presents today with: Patient presents with: Follow Up: EC follow up for cough HISTORY OF PRESENT ILLNESS: Bharat Finch is a 57 year old male. Patient presents with: Follow Up: EC follow up for cough Here in the office office for ongoing cough. Was seen in [facility] on 07/28/2023 for cough, sinus congestion, post nasal drip, and fatigue. He was treated with Augmentin and Tessalon Perles. Cough has been ongoing. Cough seemed to progressively worse the past several days. Cough is productive at times, but hard to get mucus out of the chest. Has tried Mucinex cough which has not helped. Some SOB with cough. Denies difficulty breathing. Running a fever today in office. 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 S/p CABG x3v 12/02/2008; stents 10/26/2018 Atrial fibrillation (HCC) Awareness under anesthesia Blood in semen 2022 CHF (congestive heart failure) (HCC) Dyspnea on exertion Erectile dysfunction Essential hypertension History of cardioversion HLD (hyperlipidemia) Nonsustained paroxysmal ventricular tachycardia (HCC) ALICIA treated with BiPAP complaint Pacemaker 04/2022 for bradley/[facility] [phone] PAF (paroxysmal atrial fibrillation) (HCC) Palpitations S/P CABG x 3 Sick sinus syndrome (HCC) Tachy-bradley syndrome (HCC) PAST SURGICAL HISTORY Procedure Laterality Date ANESTH,PACEMAKER INSERTION N/A 05/10/2022 Pacemaker placed CABG (3) VEIN GRAFTS & ARTERIAL GRAFT(S) 12/02/2008 CABG x3v SHEIKH-D2, Sequential SVG-LPDA and OM2 LEFT HEART CATH,PERCUTANEOUS 10/26/2018 PAST SURGICAL HISTORY OF N/A 02/05/2021 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 albuterol HFA (VENTOLIN HFA) 90 mcg/actuation inhaler Inhale 2 Puffs as instructed every 4 hours asneeded for wheezing/shortness of breath for up to 10 days. testosterone (ANDROGEL) 50 mg / 5 g (1%) Apply 1 Packet as directed once daily for 90 days. MULTAQ 400 mg tab TAKE 1 TABLET BY MOUTH TWICE DAILY WITH FOOD/MEAL (Patient not taking: Reported on 07/28/2023) lisinopril (ZESTRIL) 10 mg tablet Take 1 [...] No current facility-administered medications for this visit. FAMILY HISTORY Problem Relation Age of Onset Diabetes Mother Ischemic Heart Disease Father Diabetes Father Cancer Father other (brain aneurysm rupture) Brother Social History Tobacco Use Smoking status: Never Smokeless tobacco: Never Vaping Use Vaping Use: Never used Substance Use Topics Alcohol use: Not Currently Comment: few times a month Drug use: Not Currently Types: Marijuana REVIEW OF SYSTEMS GENERAL: + Fever HEENT: Negative for frequent or significant headaches, No changes in hearing or vision. NECK: Negative for lumps, goiter, pain and significant neck swelling RESPIRATORY: + Cough/SOB CARDIOVASCULAR: Negative for chest pain, leg swelling, [...] depression, anxiety, or suicidal ideation. EXAM: BP 106/70 Pulse 82 Temp (!) 38.1 C (100.6 F) Resp 16 Wt 112.9 kg (249 lb) SpO2 100% BMI36.77 kg/m PHYSICAL EXAM: General Appearance: Well appearing, alert, in no acute distress, well-hydrated, well nourished. Skin: Skin color, texture, turgor normal, no suspicious rashes or lesions. Head: Normocephalic, no masses, lesions, tenderness or abnormalities. Eyes: Anicteric sclera. Extraocular movements are intact. Ears: External ears normal, canals clear. TMs pearly eastman. Nose/Sinuses: Positive findings: mucosa erythematous and swollen, clear rhinorrhea. Oropharynx: Lips, mucosa, and tongue normal, teeth and gums normal, oropharynx normal. Neck: Supple, no adenopathy; thyroid symmetric, normal size, no bruits. Lungs: Lungs clear to auscultation. No wheezing, rhonchi, rales. Cough. Heart: RRR without murmur, gallop, or rubs. No ectopy. Extremities: No deformities, edema, skin discoloration, clubbing or cyanosis. Good capillary refill. Peripheral Pulses: Normal, Capillary refill <2secs, strong peripheral pulses, Pulses palpable. Neurologic: Gait normal. Sensation grossly intact. ASSESSMENT/PLAN: 1. Sinobronchitis - ICD9: 473.9, 490, ICD10: J32.9, J40 (primary diagnosis) - Cannot rule out possible pneumonia. - Will cover for both sinusitis/pneumonia. Start doxycycline - Get chest xray completed - May use albuterol inhaler as needed for shortness of breath or wheezing. - DOXYCYCLINE HYCLATE 100 MG TABLET - XR CHEST 2V FRONTAL/LAT - ALBUTEROL SULFATE HFA 90 MCG/ACTUATION AEROSOL INHALER 2. Acute cough - ICD9: 786.2, ICD10: R05.1 - Start Prednisone burst 20 mg daily for 5 days. - May use codeine cough syrup as needed for cough - PREDNISONE 20 MG TABLET - CODEINE 10 MG-GUAIFENESIN 200 MG/5 ML ORAL LIQUID PDMP website checked and validated. All prescriptions have been APPROPRIATELY filled. No suspiciousactivity was identified. 08/07/2023 by Suly Bah APRN.MERCHANDISE FLOW TEAM LEADER Follow-up pending test results or sooner as needed. Discussed treatment plan and patient voices understanding. Patient's questions answered appropriately. Medications and potential side effects were discussed and patient voices understanding. Suly Bah APRN.MERCHANDISE FLOW TEAM LEADER This note was partially generated using StackSearch voice recognition system. Note was reviewed for accuracy. There may be minor misspellings or grammar miscues with StackSearch voice recognition. documented in this encounterRegional Medical Center04-20-2024 Discharge summary Author Kuldeep Dong [facility] August 02, 2023 9:23am Note Date/Time August 02, 2023 9:1 8am [facility] Medical Records Department [address] [place] [id number] Discharge Summary 08/02/23 0916 MR#: [id number] Acct: [id number] Name: MIKAYLABHARAT Castellanos Jace Rep #:[id number] : 1965 57 From: Kuldeep Dong MD PCP: Dr. Bharat Coronado MD Status:AD M IN Location: [facility] [id number] Providers Date of Admission: 07/30/23 Date of Discharge: 08/02/23 Primary Care Physician: Dr. Bharat Coronado MD Consultations 07/31/23 07:52 Consult: Cardiology Routine Consulting Provider: Areli David Reason for Consult: afib rvr on max cardizem signifigant cardiac hx EMERGENT Consult: Yes MD Notified: Yes Date Notified: 07/31/23 Time Notified: 07:52 Method of Notification: Text Reason For Visit: HF EXACERBATION, PAF RVR Diagnosis Discharge Diagnosis (1) Atrial fibrillation with RVR: Status: Acute Code(s): I48.91 - Unspecified atrial fibrillation Plan Patient is a 57-year-old gentleman with multiple comorbidities including coronary artery disease status post CABG, hypertension paroxysmal A-fib who presented to the emergency department with increasing weight gain and bilateral lower extremity swelling. An assessment of acute congestive heart failure made admitted to a monitored bed for further management 1. Acute on chronic congestive heart failure with preserved ejection fraction ? Patient admitted to monitored bed, managed with strict input and output, dailyweight, fluid restriction, low-sodium diet as well as diuretic therapy with furosemide ? 08/01/2023; subsequent adjustment made to patient diuretic therapy ? 08/02/2023; patient responded to diuretic therapy. Patient will be discharged home to follow-up with cardiology. Plans for patient to undergo outpatient leftand right heart catheterization 2D echo obtained on 06/30/2023; Normal LV size. Left ventricular systolic function is lower limits of normal. Mild concentric left ventricular hypertrophy. The left ventricular ejection fraction is 50 %. The left atrium is mildly enlarged. Contrast injection was performed. 2. Paroxysmal A-fib with RVR ? Patient admitted to monitored bed started on Cardizem drip. Consult placed tocardiology patient seen by Dr. David adjustment made to patient medications. Patient is on systemic anticoagulation with apixaban did continue ? 08/01/2023; Case was discussed with At rehab the day prior adjustment made to patient rate controlling agent with metoprolol being increased to 100 mg twice daily and Cardizem switched to 60 mg every 6 hours. ? 08/02/2023. Patient heart rate relatively well-controlled. 3. Coronary artery disease ? With previous CABG and subsequent PCI with KAREN. Patient remains on guideline directed medical therapy 4. Tachybradycardia syndrome ? Status post pacemaker placement 5. Hypertension - Blood pressure controlled, home medications continued with dose adjustment as needed 6. Dyslipidemia -Patient is on statin therapy, continued at home dose 7. Obstructive sleep apnea ? Patient is on PAP therapy at night consistent use encouraged 8. Class II obesity with BMI of 37 ? Complicating care weight loss advised 9. Hyperglycemia ? Patient does not have any documented history of diabetes, ordered hemoglobin A1c 10. DVT prophylaxis ? Patient is on apixaban Time spent in the patient's overall evaluation,decision-making process, review of diagnostic data, adjustment of management, discussion with other providers, nursing nursing and ancillary staff involved in patient's care documentation, 35 Minutes Medications at Discharge Home Medications aspirin 81 mg tablet,delayed release (Adult Low Dose Aspirin) 81 mg PO QDAY heart health 08/29/17 hydrocodone-acetaminophen 5-325mg 5mg-325mg 0.5 tab PO DAILY PRN Pain 09/08/20 apixaban 5 mg tablet (Eliquis) 5 mg PO BID blood thinner #60 tabs 11/15/22 lisinopril 5 mg tablet 5 mg PO DAILY #90 tabs 03/18/23 simvastatin 40 mg tablet 40 mg PO QPM cholesterol #90 tabs 06/19/23 benzonatate 100 mg capsule 100 mg PO TID 07/30/23 testosterone 1 % (50 mg/5 gram) transdermal gel packet 1 packet transdermal DAILY 07/30/23 tizanidine 4 mg tablet 4 mg PO QHS PRN muscle spasm 07/30/23 diltiazem HCl 60 mg tablet 90 mg (1.5 x 60 mg) PO Q6 #240 tabs 08/02/23 empagliflozin 10 mg tablet (Jardiance) 10 mg PO DAILY 30 days #30 tabs 08/02/23 furosemide 40 mg tablet 40 mg PO BID water retention #60 tabs 08/02/23 metoprolol tartrate 50 mg tablet 100 mg (2 x 50 mg) PO BID #60 tabs 08/02/23 potassium chloride 20 mEq tablet,extended release(part/cryst) 20 meq PO DAILY #30 tabs 08/02/23 Physical Exam Narrative GENERAL: cooperative HEENT: Atraumatic; normocephalic EYES; Anicteric, Normal Conjunctiva NECK; supple, normal thyroid, RESPIRATORY: Diminished to auscultation CARDIOVASCULAR: Irregularly irregular, tachycardic GI: soft, normoactive bowel sounds, : No Renal angle tenderness; EXTREMITIES: Bilateral pedal edema, no clubbing, MUSCULOSKELETAL: no muscle wasting NEURO: Awake; no lateralizing signs. SKIN: No Rash PSYCH; Flat affect Weight / BMI Weight Weight: 109.2 kg Body Mass Index (BMI) 35.5 ABG / Lab / Microbiology Data 08/02/23 07:43 08/02/23 07:43 Laboratory: Laboratory Results - last 24 hr 08/02/23 07:43: WBC 7.4, RBC 5.14, Hgb 15.7, Hct 47.4, MCV 92.2, MCH 30.5, MCHC 33.1, RDW Std Deviation 43.8, RDW Coeff of Ashwini 12.9, Plt Count 233, MPV 10.3, Immature Gran % (Auto) 0.400, Neut % (Auto) 61.4, Lymph % (Auto) 22.8, Charles [place] % (Auto) 11.5 H, Eos % (Auto) 2.8, Baso % (Auto) 1.1 H, Absolute Neuts (auto) 4.5,Absolute Lymphs (auto) 1.68, Nucleated RBC % 0, Sodium 137, Potassium 3.5, Chloride 100, Carbon Dioxide 33.0 H, Anion Gap 4 L, BUN 28 H, Creatinine 1.43 H,Estim Creat Clear Calc 69.41, Est GFR (MDRD) Af Amer 65, Est GFR (MDRD) Non-Af 54 L, BUN/Creatinine Ratio 19.6, Glucose 119 H, Calcium 9.4 D/C Instructions Discharge Diet: Low fat / Low cholesterol, 8 Cup Fluid Restriction and 2000 mg Sodium Diet Discharge Activity: Return to Normal Activity Call your doctor if you observe: Fever of 101 or Higher, Shortness of breath, Fainting spells and Chest pain Meaningful Use Info Meaningful Use Meaningful Use Diagnoses (Choose all that apply): CHF CHF JOSEY/ARB ordered at discharge?: Yes Documented LVEF (%): 50 Ischemic Stroke Statin Dosing Therapy Reference: STATIN DOSE THERAPY REFERENCE: * Patients > 75 years receive moderate or high dose statin therapy. * Patients 75 years or YOUNGER should receive HIGH intensity statin dose unless contraindicated. You will be required to document reason for non-treatment if statin daily dose does not meet guidelines. HIGH DOSE STATIN THERAPY DAILY Atorvastatin > than or = to 40 mg Rosuvastatin > than or = to 20 mg Amlodipine + Atorvastatin > than or = to 2.5/40 mg Ezetimibe + Simvastatin 10/80 mg Simvastatin 80mg Discharge Plan Admission Admit Date/Time: 07/30/23 16:54 Attending Provider: Kuldeep Dong Primary Care Provider: Bharat Coronado Consulting Providers: Martha Madrid; Areli David Discharge Orders/Prescriptions Prescriptions: New diltiazem HCl 60 mg Tablet 90 mg PO Q6 Qty: 240 0RF Jardiance 10 mg Tablet 10 mg PO DAILY 30 Days Qty: 30 0RF potassium chloride 20 mEq tablet,ER particles/crystals 20 meq PO DAILY Qty: 30 0RF Continued aspirin [Adult Low Dose Aspirin] 81 mg tablet,delayed release (DR/EC) 81 mg PO QDAY hydrocodone-acetaminophen 5-325 mg tablet 0.5 tab PO DAILY PRN (Reason: Pain) benzonatate 100 mg capsule 100 mg PO TID testosterone 1 % (50 mg/5 gram) gel in packet 1 packet transdermal DAILY tizanidine 4 mg tablet 4 mg PO QHS PRN (Reason: muscle spasm) Eliquis 5 mg tablet 5 mg PO BID Qty: 60 11RF Hold Instructions: Resume on 05/18/22. lisinopril 5 mg tablet 5 mg PO DAILY Qty: 90 3RF simvastatin 40 mg tablet 40 mg PO QPM Qty: 90 3RF Changed furosemide 40 mg tablet 40 mg PO BID Qty: 60 0RF metoprolol tartrate 50 mg tablet 100 mg PO BID Qty: 60 0RF Discontinued amoxicillin-pot clavulanate 875-125 mg tablet 1 tab PO BID Referrals / Follow Up: Areli David MD [Med Staff - Active Staff] - Within 2 Weeks Bharat Coronado MD [Primary Care Provider] - Within 2 Weeks Disposition Disposition (needs filled in before D/C Order can be placed): Home, Self Care Charges/Coding Visit Charges Inpatient E&M: 47607 Disch Hosp >30min 08/02/23 0923 <Electronically signed by Kuldeep Dong MD> Cosigner Signature (if applicable): CC: Dr. Kuldeep Dong MD; Dr. Bharat Coronado MD~ Signed [facility] Work Phone: [phone]) 992-119604-20-2024 Progress note Author Kuldeep Dong [facility] August 02, 2023 9:16am Note Date/Time August 02, 2023 7:2 3am [facility] Medical Records Department [address] [place] [address] [place] [address] Progress Note - Hospitalist 08/02/23722 MR#: [id number] Acct: [id number] Name: BHARAT FINCH Rep #:[id number] : 1965 57 From: Kuldeep Dong MD PCP: Dr. 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 Plan is for patient to be discharged home. Objective Data Objective Data Vital Signs: Vital Signs Temp Pulse Resp BP Pulse Ox O2 Del Method O2 Flow Rate 97.6 F L 87 16 105/68 99 Room Air 2 08/02/23 05:29 08/02/23 05:29 08/02/23 05:29 08/02/23 05:29 08/02/23 05:29 08/02/23 05:29 08/01/23 06:50 Oxygen Flow Rate (L/min) 2 Oxygen Delivery Method Room Air Weight: 109.2 kg Body Mass Index (BMI) 35.5 Intake & Output: Intake and Output for Last 24 Hours 07/31/23 08/01/23 08/02/23 23:59 23:59 23:59 Intake Total 1265.83 / 1265.83 505 / 505 Output Total 500 / 500 1200 / 2200 1000 / 1000 Balance 765.83 / 765.83 -695 / -1695 -1000 / -1000 Lab / Micro Data 08/02/23 07:43 08/02/23 07:43 Physical Exam Narrative GENERAL: cooperative HEENT: Atraumatic; normocephalic EYES; Anicteric, Normal Conjunctiva NECK; supple, normal thyroid, RESPIRATORY: Diminished to auscultation CARDIOVASCULAR: Irregularly irregular, tachycardic GI: soft, normoactive bowel sounds, : No Renal angle tenderness; EXTREMITIES: Bilateral pedal edema, no clubbing, MUSCULOSKELETAL: no muscle wasting NEURO: Awake; no lateralizing signs. SKIN: No Rash PSYCH; Flat affect Assessment & Plan Assessment/Plan (1) Atrial fibrillation with RVR: PLAN: Plan Patient is a 57-year-old gentleman with multiple comorbidities including coronary artery disease status post CABG, hypertension paroxysmal A-fib who presented to the emergency department with increasing weight gain and bilateral lower extremity swelling. An assessment of acute congestive heart failure made admitted to a monitored bed for further management 1. Acute on chronic congestive heart failure with preserved ejection fraction ? Patient admitted to monitored bed, managed with strict input and output, dailyweight, fluid restriction, low-sodium diet as well as diuretic therapy with furosemide ? 08/01/2023; subsequent adjustment made to patient diuretic therapy ? 08/02/2023; patient responded to diuretic therapy. Patient will be discharged home to follow-up with cardiology. Plans for patient to undergo outpatient leftand right heart catheterization 2. Paroxysmal A-fib with RVR ? Patient admitted to monitored bed started on Cardizem drip. Consult placed tocardiology patient seen by Dr. David adjustment made to patient medications. Patient is on systemic anticoagulation with apixaban did continue ? 08/01/2023; Case was discussed with [facility] rehab the day prior adjustment made to patient rate controlling agent with metoprolol being increased to 100 mg twice daily and Cardizem switched to 60 mg every 6 hours. ? 08/02/2023. Patient heart rate relatively well-controlled. 3. Coronary artery disease ? With previous CABG and subsequent PCI with KAREN. Patient remains on guideline directed medical therapy 4. Tachybradycardia syndrome ? Status post pacemaker placement 5. Hypertension - Blood pressure controlled, home medications continued with dose adjustment as needed 6. Dyslipidemia -Patient is on statin therapy, continued at home dose 7. Obstructive sleep apnea ? Patient is on PAP therapy at night consistent use encouraged 8. Class II obesity with BMI of 37 ? Complicating care weight loss advised 9. Hyperglycemia ? Patient does not have any documented history of diabetes, ordered hemoglobin A1c 10. DVT prophylaxis ? Patient is on apixaban Time spent in the patient's overall evaluation,decision-making process, review of diagnostic data, adjustment of management, discussion with other providers, nursing nursing and ancillary staff involved in patient's care documentation, 35 Minutes 08/02/23 0977 <Electronically signed by Kuldeep Dong MD> Cosigner Signature (if applicable): CC: ~ Signed [facility] Work Phone: [phone] Progress note Author Lakisha Beckham [facility] August 01, 2023 4:02pm Note Date/Time August 01, 2023 12: 23pm [facility] Medical Records Department [address] [place] [address] Progress Note - Cardiology 08/01/23 1219 MR#: [id number] Acct: [id number] Name: BHARAT FINCH Rep #:[id number] : 1965 57 From: Lakisha Beckham MD PCP: Dr. Bharat Coronado MD Status:AD M IN Location: [place] [id number] <Statement entered by Lakisha Beckham MD - 08/01/23 16:02> Pt seen & evaluated w/JAYSHREE. I personally interviewed & exam the pt. I was involved in all aspects of pt's orders, interpretation of results & treatment Subjective Subjective Pt seen and examined. Feels better than yesterday. Is aware of elevated HRs. He feels his edema is better but it still there. Objective Data Vital Signs: Vital Signs Temp Pulse Resp BP Pulse Ox O2 Del Method O2 Flow Rate 97 F L 88 16 103/80 99 Room Air 2 08/01/23 09:00 08/01/23 10:32 08/01/23 09:00 08/01/23 10:32 08/01/23 09:00 08/01/23 09:00 08/01/23 06:50 Oxygen Flow Rate (L/min) 2 Oxygen Delivery Method Room Air Weight: 244 lb 14.937 oz Body Mass Index (BMI) 36.1 Intake & Output: Intake and Output for Last 24 Hours 07/30/23 07/31/23 08/01/23 23:59 23:59 23:59 Intake Total 1036.83 / 1044.33 1265.83 / 1265.83 Output Total 900 / 900 500 / 500 1200 / 1200 Balance 136.83 / 144.33 765.83 / 765.83 -1175 / -1175 Lab / Micro Data 08/01/23 05:45 08/01/23 05:45 Labs: Laboratory Results - last 24 hr 08/01/23 05:45: WBC 7.4, RBC 4.58 L, Hgb 13.9, Hct 42.8, MCV 93.4, MCH 30.3, MCHC 32.5, RDW Std Deviation 44.5 H, RDW Coeff of Ashwini 13.0, Plt Count 183, MPV 10.7, Immature Gran % (Auto) 0.300, Neut % (Auto) 54.3, Lymph % (Auto) 27.3, [place] % (Auto) 13.0 H, Eos % (Auto) 4.2, Baso % (Auto) 0.9, Absolute Neuts (auto)4.0, Absolute Lymphs (auto) 2.02, Nucleated RBC % 0, Sodium 139, Potassium 3.6, Chloride 103, Carbon Dioxide 28.0, Anion Gap 8, BUN 22 H, Creatinine 1.21, EstimCreat Clear Calc 82.75, Est GFR (MDRD) Af Amer 79, Est GFR (MDRD) Non-Af 66, BUN/Creatinine Ratio 18.2, Glucose 103, Calcium 9.1, Phosphorus 3.5, Magnesium 2.1 Cardiology Labs/Tests 08/01/23 05:45: WBC 7.4, RBC 4.58 L, Hgb 13.9, Hct 42.8, MCV 93.4, MCH 30.3, MCHC 32.5, Plt Count 183, MPV 10.7, Immature Gran % (Auto) 0.300, Neut % (Auto) 54.3, Lymph % (Auto) 27.3, [place] % (Auto) 13.0 H, Eos % (Auto) 4.2, Baso % (Auto)0.9, Absolute Neuts (auto) 4.0, Nucleated RBC % 0, Sodium 139, Potassium 3.6, Chloride 103, Carbon Dioxide 28.0, Anion Gap 8, BUN 22 H, Creatinine 1.21, Est GFR (MDRD) Af Amer 79, Est GFR (MDRD) Non-Af 66, BUN/Creatinine Ratio 18.2, Glucose 103, Calcium 9.1, Phosphorus 3.5, Magnesium 2.1 Rhythm: Atrial fib, with occasional demand pacing EKG: ECHO: Stress Test: Cardiac Cath: PCI: CT Surgery: Holter monitor: EPS: PPM: CXR: Chest CT Scan: Physical Exam Narrative GENERAL: cooperative HEENT: Atraumatic; normocephalic EYES; Anicteric, Normal Conjunctiva NECK; supple, normal thyroid, RESPIRATORY: Diminished to auscultation CARDIOVASCULAR: Irregularly irregular, tachycardic GI: soft, normoactive bowel sounds, : No Renal angle tenderness; EXTREMITIES: + 3 edema MUSCULOSKELETAL: no muscle wasting NEURO: Awake; SKIN: No Rash PSYCH; Flat affect Assessment & Plan Assessment/Plan (1) Atrial fibrillation with RVR: (2) Acute on chronic heart failure with preserved ejection fraction (HFpEF): (3) 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 transplanted heart: rampart heart QualifiedCode(s): I25.10 - 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 (4) Pacemaker: PLAN: Plan Atrial fib: HR better controlled. Will continue with metoprolol 100 mg BID. Feel that he can tolerate long acting Cardizem. Will switch this. Will continuewith anticoagulation Acute on chronic heart failure with preserved EF: Will continue with rate control, diuretics and SGL2. Will monitor renal function.When able recommend that he be switched to PO lasix. Feel that his elevated HR contributed to this. On an OP basis had obtained an echo to evlaute pulmonary pressures. We were undable to see this. Pt would benefit from a left heart cath to evaluate for ischemia and to estimate his pulmonary pressures. Did review this with Dr. Enriquez yesterday, he is Helistent to proceed with a right heart cath d/t his PPM.Will set this up as an op basis. After his heart cath will also refer to EP, pt may benefit from an ablation for his Afib. CAD; with his failed OP management of his CHF and AFib, would like to obtain a LHC, but feel that can be done on OP basis. PPM: will continue with interrogations in the office. Charges/Coding Visit Charges Inpatient E&M: 22670 Subs Hosp L3 08/01/23 1602 <Electronically signed by Lakisha Beckham MD> Cosigner Signature (if applicable): 08/01/23 1237 <Electronically signed by Rosaura CARTER> CC: ~ Signed [facility] Work Phone: [phone] Progress note Author Kuldeep Dong [facility] August 01, 2023 9:21am Note Date/Time August 01, 2023 8:5 8am [facility] Medical Records Department [address] [place] [address] Progress Note - Hospitalist 08/01/23 0856 MR#: [id number] Acct: [id number] Name: BHARAT FINCH Rep #:[id number] : 1965 57 From: Kuldeep Dong MD PCP: Dr. Bharat Coronado MD Status:AD M IN Location: [place] [address] Reason for Visit Reason for Visit: Diagnoses Hyperlipidemia, unspecified (07/30/23) Obstructive sleep apnea (adult) (pediatric) (07/30/23) Essential (primary) hypertension (07/30/23) 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 (07/30/23) Unspecified atrial fibrillation (07/30/23) Sick sinus syndrome (07/30/23) Acute on chronic diastolic (congestive) heart failure (07/30/23) Presence of cardiac pacemaker (07/30/23) Subjective Subjective Patient seen heart rate still not well-controlled. Patient is negative fluid balance of 536 over the past 24 hours. Objective Data Objective Data Vital Signs: Vital Signs Temp Pulse Resp BP Pulse Ox O2 Del Method O2 Flow Rate 98.4 F 86 16 112/64 95 Nasal Cannula 2 08/01/23 03:00 08/01/23 03:00 08/01/23 03:00 08/01/23 03:00 08/01/23 06:50 08/01/23 06:50 08/01/23 06:50 Oxygen Flow Rate (L/min) 2 Oxygen Delivery Method Nasal Cannula Weight: 111.1 kg Body Mass Index (BMI) 36.1 Intake & Output: Intake and Output for Last 24 Hours 07/30/23 07/31/23 08/01/23 23:59 23:59 23:59 Intake Total 1036.83 / 1044.33 1265.83 / 1265.83 25 / 25 Output Total 900 / 900 500 / 500 1200 / 1200 Balance 136.83 / 144.33 765.83 / 765.83 -1175 / -1175 Lab / Micro Data 08/01/23 05:45 08/01/23 05:45 Labs: Laboratory Results - last 24 hr 08/01/23 05:45: WBC 7.4, RBC 4.58 L, Hgb 13.9, Hct 42.8, MCV 93.4, MCH 30.3, MCHC 32.5, RDW Std Deviation 44.5 H, RDW Coeff of Ashwini 13.0, Plt Count 183, MPV 10.7, Immature Gran % (Auto) 0.300, Neut % (Auto) 54.3, Lymph % (Auto) 27.3, [place] % (Auto) 13.0 H, Eos % (Auto) 4.2, Baso % (Auto) 0.9, Absolute Neuts (auto)4.0, Absolute Lymphs (auto) 2.02, Nucleated RBC % 0, Sodium 139, Potassium 3.6, Chloride 103, Carbon Dioxide 28.0, Anion Gap 8, BUN 22 H, Creatinine 1.21, EstimCreat Clear Calc 82.75, Est GFR (MDRD) Af Amer 79, Est GFR (MDRD) Non-Af 66, BUN/Creatinine Ratio 18.2, Glucose 103, Calcium 9.1, Phosphorus 3.5, Magnesium 2.1 Physical Exam Narrative GENERAL: cooperative HEENT: Atraumatic; normocephalic EYES; Anicteric, Normal Conjunctiva NECK; supple, normal thyroid, RESPIRATORY: Diminished to auscultation CARDIOVASCULAR: Irregularly irregular, tachycardic GI: soft, normoactive bowel sounds, : No Renal angle tenderness; EXTREMITIES: Bilateral pedal edema, no clubbing, MUSCULOSKELETAL: no muscle wasting NEURO: Awake; no lateralizing signs. SKIN: No Rash PSYCH; Flat affect Assessment & Plan Assessment/Plan (1) Atrial fibrillation with RVR: PLAN: Plan Patient is a 57-year-old gentleman with multiple comorbidities including coronary artery disease status post CABG, hypertension paroxysmal A-fib who presented to the emergency department with increasing weight gain and bilateral lower extremity swelling. An assessment of acute congestive heart failure made admitted to a monitored bed for further management 1. Acute on chronic congestive heart failure with preserved ejection fraction ? Patient admitted to monitored bed, managed with strict input and output, dailyweight, fluid restriction, low-sodium diet as well as diuretic therapy with furosemide ? 08/01/2023; subsequent adjustment made to patient diuretic therapy 2. Paroxysmal A-fib with RVR ? Patient admitted to monitored bed started on Cardizem drip. Consult placed tocardiology patient seen by Dr. David adjustment made to patient medications. Patient is on systemic anticoagulation with apixaban did continue ? 08/01/2023; Case was discussed with [facility] rehab the day prior adjustment made to patient rate controlling agent with metoprolol being increased to 100 mg twice daily and Cardizem switched to 60 mg every 6 hours. 3. Coronary artery disease ? With previous CABG and subsequent PCI with KAREN. Patient remains on guideline directed medical therapy 4. Tachybradycardia syndrome ? Status post pacemaker placement 5. Hypertension - Blood pressure controlled, home medications continued with dose adjustment as needed 6. Dyslipidemia -Patient is on statin therapy, continued at home dose 7. Obstructive sleep apnea ? Patient is on PAP therapy at night consistent use encouraged 8. Class II obesity with BMI of 37 ? Complicating care weight loss advised 9. Hyperglycemia ? Patient does not have any documented history of diabetes, ordered hemoglobin A1c 10. DVT prophylaxis ? Patient is on apixaban Time spent in the patient's overall evaluation,decision-making process, review of diagnostic data, adjustment of management, discussion with other providers, nursing nursing and ancillary staff involved in patient's care documentation, 50 Minutes Charges/Coding Visit Charges Inpatient E&M: 16986 Subs Hosp L3 08/01/23 0921 <Electronically signed by Kuldeep Dong MD> Cosigner Signature (if applicable): CC: ~ Signed [facility] Work Phone: [phone] 439-976704-18-2024 Progress note Author Kuldeep Dong [facility] July 31, 2023 10:50am Note Date/Time July 31, 2023 9:5 0am [facility] Medical Records Department [address] [place] [id number] Progress Note - Hospitalist 07/31/23 0949 MR#: [id number] Acct: [id number] Name: BHARAT FINCH Rep #:[id number] : 1965 57 From: Kuldeep Dong MD PCP: Dr. Bharat Coronado MD Status:AD M IN Location: [place] [address] Reason for Visit Reason for Visit: Diagnoses Hyperlipidemia, unspecified (07/30/23) Obstructive sleep apnea (adult) (pediatric) (07/30/23) Essential (primary) hypertension (07/30/23) 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 (07/30/23) Unspecified atrial fibrillation (07/30/23) Sick sinus syndrome (07/30/23) Acute on chronic diastolic (congestive) heart failure (07/30/23) Presence of cardiac pacemaker (07/30/23) Subjective Subjective Patient is a 57-year-old gentleman with multiple comorbidities including coronary artery disease status post CABG, hypertension paroxysmal A-fib who presented to the emergency department with increasing weight gain and bilateral lower extremity swelling. An assessment of acute congestive heart failure made admitted to a monitored bed for further management Objective Data Objective Data Vital Signs: Vital Signs Temp Pulse Resp BP Pulse Ox O2 Del Method O2 Flow Rate 97.5 F L 102 H 18 124/89 H 100 Room Air 2 07/31/23 04:15 07/31/23 09:11 07/31/23 07:04 07/31/23 09:11 07/31/23 09:36 07/31/23 09:36 07/31/23 05:00 Oxygen Flow Rate (L/min) 2 Oxygen Delivery Method Room Air Weight: 113.8 kg Body Mass Index (BMI) 37.0 Intake & Output: Intake and Output for Last 24 Hours 07/29/23 07/30/23 07/31/23 23:59 23:59 23:59 Intake Total 1036.83 / 1044.33 113.50 / 113.50 Output Total 900 / 900 Balance 136.83 / 144.33 113.50 / 113.50 Lab / Micro Data 07/31/23 06:30 07/31/23 06:30 Labs: Laboratory Results - last 24 hr 07/30/23 14:26: WBC 7.0, RBC 4.74, Hgb 14.3, Hct 44.7, MCV 94.3 H, MCH 30.2, MCHC 32.0, RDW Std Deviation 45.1 H, RDW Coeff of Ashwini 13.1, Plt Count 155, MPV 10.8, Immature Gran % (Auto) 0.300, Neut % (Auto) 59.3, Lymph % (Auto) 22.7, [place] % (Auto) 13.5 H, Eos % (Auto) 2.9, Baso % (Auto) 1.3 H, Absolute Neuts (auto) 4.1, Absolute Lymphs (auto) 1.58, Nucleated RBC % 0, Sodium 139, Potassium 3.8, Chloride 104, Carbon Dioxide 31.0, Anion Gap 4 L, BUN 22 H, Creatinine 1.25, Estim Creat Clear Calc 81.24, Est GFR (MDRD) Af Amer 76, Est GFR (MDRD) Non-Af 63, BUN/Creatinine Ratio 17.6, Glucose 102, Calcium 9.4, TotalBilirubin 1.10 H, Direct Bilirubin 0.34 H, AST 30, ALT 28, Alkaline Phosphatase 86, Troponin I High Sens 11, B-Natriuretic Peptide 228.2 H, Total Protein 7.3, Albumin 3.9, Globulin 3.4 07/30/23 17:26: Magnesium 1.8, Troponin I High Sens 07/30/23 20:44: Troponin I High Sens 07/31/23 06:30: WBC 7.6, RBC 4.86, Hgb 14.8, Hct 45.9, MCV 94.4 H, MCH 30.5, MCHC 32.2, RDW Std Deviation 45.3 H, RDW Coeff of Ashwini 13.0, Plt Count 187, MPV 10.4, Immature Gran % (Auto) 0.300, Neut % (Auto) 60.2, Lymph % (Auto) 23.0, [place] % (Auto) 11.8 H, Eos % (Auto) 3.5, Baso % (Auto) 1.2 H, Absolute Neuts (auto) 4.6, Absolute Lymphs (auto) 1.75, Nucleated RBC % 0, Sodium 136, Potassium 3.6, Chloride 102, Carbon Dioxide 30.0, Anion Gap 4 L, BUN 20 H, Creatinine 1.26, Estim Creat Clear Calc 80.46, Est GFR (MDRD) Af Amer 76, Est GFR (MDRD) Non-Af 63, BUN/Creatinine Ratio 15.9, Glucose 136 H, Calcium 9.2, Total Bilirubin 1.10 H, AST 33, ALT 34, Alkaline Phosphatase 89, Total Protein 7.5, Albumin 4.0, Globulin 3.5, Albumin/Globulin Ratio 1.1, Triglycerides 85, Cholesterol 121, LDL Cholesterol 64, VLDL Cholesterol 17, HDL Cholesterol 40, TSH 1.42 Radiography Diagnostic Testing: Radiology Impression Chest X-Ray 07/30/23 14:28 IMPRESSION: Mild degree of vascular congestion. Borderline cardiomegaly. Electronically Signed: Brandon Cabrera MD at 14:40 EDT , Physical Exam Narrative GENERAL: cooperative HEENT: Atraumatic; normocephalic EYES; Anicteric, Normal Conjunctiva NECK; supple, normal thyroid, RESPIRATORY: Diminished to auscultation CARDIOVASCULAR: Irregularly irregular, tachycardic GI: soft, normoactive bowel sounds, : No Renal angle tenderness; EXTREMITIES: Bilateral pedal edema, no clubbing, MUSCULOSKELETAL: no muscle wasting NEURO: Awake; no lateralizing signs. SKIN: No Rash PSYCH; Flat affect Assessment & Plan Assessment/Plan (1) Atrial fibrillation with RVR: PLAN: Plan Patient is a 57-year-old gentleman with multiple comorbidities including coronary artery disease status post CABG, hypertension paroxysmal A-fib who presented to the emergency department with increasing weight gain and bilateral lower extremity swelling. An assessment of acute congestive heart failure made admitted to a monitored bed for further management 1. Acute on chronic congestive heart failure with preserved ejection fraction ? Patient admitted to monitored bed, managed with strict input and output, dailyweight, fluid restriction, low-sodium diet as well as diuretic therapy with furosemide 2. Paroxysmal A-fib with RVR ? Patient admitted to monitored bed started on Cardizem drip. Consult placed tocardiology patient seen by Dr. David adjustment made to patient medications. Patient is on systemic anticoagulation with apixaban did continue 3. Coronary artery disease ? With previous CABG and subsequent PCI with KAREN. Patient remains on guideline directed medical therapy 4. Tachybradycardia syndrome ? Status post pacemaker placement 5. Hypertension - Blood pressure controlled, home medications continued with dose adjustment as needed 6. Dyslipidemia -Patient is on statin therapy, continued at home dose 7. Obstructive sleep apnea ? Patient is on PAP therapy at night consistent use encouraged 8. Class II obesity with BMI of 37 ? Complicating care weight loss advised 9. Hyperglycemia ? Patient does not have any documented history of diabetes, ordered hemoglobin A1c 10. DVT prophylaxis ? Patient is on apixaban Time spent in the patient's overall evaluation,decision-making process, review of diagnostic data, adjustment of management, discussion with other providers, nursing nursing and ancillary staff involved in patient's care documentation, 52Minutes Charges/Coding Visit Charges Inpatient E&M: 17262 Subs Hosp L3 07/31/23 1050 <Electronically signed by Kuldeep Dong MD> Cosigner Signature (if applicable): CC: ~ Signed [facility] Work Phone: [phone] Consult note Author Areli David [facility] July 31, 2023 9:38am Note Date/Time July 31, 2023 9:3 8am [facility] Medical Records Department [address] [place] [address] Consultation - Cardiology 07/31/23 0931 MR#: [id number] Acct: [id number] Name: BHARAT FINCH Rep #:[id number] : 1965 57 From: Areli David MD PCP: Dr. Bharat Coronado MD Status:AD M IN Location: [place] [address] Assessment & Plan Assessment/Plan (1) Atrial fibrillation with RVR: PLAN: Increase metoprolol to 100 mg twice daily. Change diltiazem to 60 mg p.o.every 6 hours. If he is able to tolerate it, then may switch to longer acting formulation. Continue apixaban. (2) Sick sinus syndrome: PLAN: Status post permanent pacemaker placement. (3) Pacemaker: PLAN: Continue following at the pacemaker clinic. (4) Acute on chronic heart failure with preserved ejection fraction (HFpEF): PLAN: Agree with diuretics. Continue beta-blockers. Lisinopril. Start on SGLT2 inhibitor. (5) 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 transplanted heart: rampart heart QualifiedCode(s): I25.10 - 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 PLAN: Status post CABG. (6) Essential hypertension: PLAN: Continue lisinopril, metoprolol and diltiazem. (7) HLD (hyperlipidemia): QUALIFIERS: Hyperlipidemia type: unspecified Qualified Code(s): E78.5 - Hyperlipidemia, unspecified PLAN: On atorvastatin. (8) ALICIA treated with BiPAP: PLAN: On BiPAP. HPI Consult Data Date of Consult: 07/31/23 HPI Narrative Reason for Consultation: Atrial fibrillation with rapid ventricular response HPI Narrative: This gentleman has past medical history significant for paroxysmal atrial fibrillation and sick sinus syndrome status post permanent pacemaker placement, HFpEF, coronary artery disease status post CABG, hypertension, obstructive sleepapnea and dyslipidemia. He has been admitted to the hospital with complaints ofincreasing shortness of breath over the last 2 to 3 weeks. Also complains of palpitations. Positive ankle edema. In the emergency room, the patient was noted to be in atrial fibrillation with rapid ventricular response. Subsequently has been started on diltiazem infusion. Also being treated with IV diuretics for CHF exacerbation. [facility] Medical History (Updated 07/30/23 @ 19:[address] Martha Madrid MD) 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 Essential hypertension History of cardioversion (12/14/21) HLD (hyperlipidemia) Nonsustained paroxysmal ventricular tachycardia Obesity ALICIA treated with BiPAP PAF (paroxysmal atrial fibrillation) Sick sinus syndrome Tachy-bradley syndrome Home Medications aspirin 81 mg tablet,delayed release (Adult Low Dose Aspirin) [facility] [History Last Taken 07/30/23] hydrocodone-acetaminophen 5-325mg 5mg-325mg 0.5 tab PO DAILY PRN Pain 09/08/20 [History Last Taken 12/09/21] apixaban 5 mg tablet (Eliquis) 5 mg PO BID blood thinner #60 tabs 11/15/22 [Rx Last Taken 07/30/23] furosemide 40 mg tablet (Lasix) 40 mg PO DAILY water retention #180 tabs 01/31/23 [Rx Last Taken 07/30/23] lisinopril 5 mg tablet 5 mg PO DAILY #90 tabs 03/18/23 [Rx Last Taken 07/30/23] metoprolol tartrate 50 mg tablet 50 mg PO BID #180 tabs 03/18/23 [Rx Last Taken 07/30/23] simvastatin 40 mg tablet 40 mg PO QPM cholesterol #90 tabs 06/19/23 [Rx Last Taken 07/29/23] amoxicillin 875 mg-potassium clavulanate 125 mg tablet 1 tab PO BID 07/30/23 [History Last Taken 07/30/23] benzonatate 100 mg capsule 100 mg PO TID 07/30/23 [History Last Taken 07/30/23] testosterone 1 % (50 mg/5 gram) transdermal gel packet 1 packet transdermal DAILY 07/30/23 [History Last Taken 07/30/23] tizanidine 4 mg tablet 4 mg PO QHS PRN muscle spasm 07/30/23 [History Last Taken Unknown] Allergy/AdvReac Type Severity Reaction Status Date / Time chlorhexidine Allergy Itching,zhanna Verified 07/30/23 13:40 [From ChloraPrep Clear] h isopropyl alcohol Allergy Itching,zhanna Verified 07/30/23 13:40 [From ChloraPrep Clear] h Family History Father CAD (coronary artery disease) Diabetes Cancer Mother Diabetes Brother brain aneurysm rupture Surgical History H/O coronary artery bypass surgery (12/02/08) History of arthroscopy of left shoulder (03/2017) History of coronary artery stent placement (10/26/18) History of left heart catheterization (LHC) (10/26/18) History of tonsillectomy S/P cardiac pacemaker procedure Social History household members: spouse housing: house current occupational status: employed 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 No apparent distress. Obese. Heart sounds 1 and 2 noted. Irregularly irregular. Tachycardic. Chest clear to auscultation bilaterally. Alert oriented x 3. 2+ bilateral ankle edema. Risk Stratification Risk Stratification Applicable: No Objective Data Vital Signs: Vital Signs Temp Pulse Resp BP Pulse Ox O2 Del Method O2 Flow Rate 97.5 F L 102 H 18 124/89 H 97 Room Air 2 07/31/23 04:15 07/31/23 09:11 07/31/23 07:04 07/31/23 09:11 07/31/23 07:04 07/31/23 07:35 07/31/23 05:00 Oxygen Flow Rate (L/min) 2 Oxygen Delivery Method Room Air Weight: 250 lb 14.177 oz Body Mass Index (BMI) 37.0 Intake & Output: Intake and Output for Last 24 Hours 07/29/23 07/30/23 07/31/23 23:59 23:59 23:59 Intake Total 1036.83 / 1044.33 113.50 / 113.50 Output Total 900 / 900 Balance 136.83 / 144.33 113.50 / 113.50 Lab / Micro Data 07/31/23 06:30 07/31/23 06:30 Labs: Laboratory Results - last 24 hr 07/30/23 14:26: WBC 7.0, RBC 4.74, Hgb 14.3, Hct 44.7, MCV 94.3 H, MCH 30.2, MCHC 32.0, RDW Std Deviation 45.1 H, RDW Coeff of Ashwini 13.1, Plt Count 155, MPV 10.8, Immature Gran % (Auto) 0.300, Neut % (Auto) 59.3, Lymph % (Auto) 22.7, [place] % (Auto) 13.5 H, Eos % (Auto) 2.9, Baso % (Auto) 1.3 H, Absolute Neuts (auto) 4.1, Absolute Lymphs (auto) 1.58, Nucleated RBC % 0, Sodium 139, Potassium 3.8, Chloride 104, Carbon Dioxide 31.0, Anion Gap 4 L, BUN 22 H, Creatinine 1.25, Estim Creat Clear Calc 81.24, Est GFR (MDRD) Af Amer 76, Est GFR (MDRD) Non-Af 63, BUN/Creatinine Ratio 17.6, Glucose 102, Calcium 9.4, TotalBilirubin 1.10 H, Direct Bilirubin 0.34 H, AST 30, ALT 28, Alkaline Phosphatase 86, Troponin I High Sens 11, B-Natriuretic Peptide 228.2 H, Total Protein 7.3, Albumin 3.9, Globulin 3.4 07/30/23 17:26: Magnesium 1.8, Troponin I High Sens 07/30/23 20:44: Troponin I High Sens 07/31/23 06:30: WBC 7.6, RBC 4.86, Hgb 14.8, Hct 45.9, MCV 94.4 H, MCH 30.5, MCHC 32.2, RDW Std Deviation 45.3 H, RDW Coeff of Ashwini 13.0, Plt Count 187, MPV 10.4, Immature Gran % (Auto) 0.300, Neut % (Auto) 60.2, Lymph % (Auto) 23.0, [place] % (Auto) 11.8 H, Eos % (Auto) 3.5, Baso % (Auto) 1.2 H, Absolute Neuts (auto) 4.6, Absolute Lymphs (auto) 1.75, Nucleated RBC % 0, Sodium 136, Potassium 3.6, Chloride 102, Carbon Dioxide 30.0, Anion Gap 4 L, BUN 20 H, Creatinine 1.26, Estim Creat Clear Calc 80.46, Est GFR (MDRD) Af Amer 76, Est GFR (MDRD) Non-Af 63, BUN/Creatinine Ratio 15.9, Glucose 136 H, Calcium 9.2, Total Bilirubin 1.10 H, AST 33, ALT 34, Alkaline Phosphatase 89, Total Protein 7.5, Albumin 4.0, Globulin 3.5, Albumin/Globulin Ratio 1.1, Triglycerides 85, Cholesterol 121, LDL Cholesterol 64, VLDL Cholesterol 17, HDL Cholesterol 40, TSH 1.42 Cardiology Labs/Tests 07/30/23 14:26: WBC 7.0, RBC 4.74, Hgb 14.3, Hct 44.7, MCV 94.3 H, MCH 30.2, MCHC 32.0, Plt Count 155, MPV 10.8, Immature Gran % (Auto) 0.300, Neut % (Auto) 59.3, Lymph % (Auto) 22.7, [place] % (Auto) 13.5 H, Eos % (Auto) 2.9, Baso % (Auto)1.3 H, Absolute Neuts (auto) 4.1, Nucleated RBC % 0, Sodium 139, Potassium 3.8, Chloride 104, Carbon Dioxide 31.0, Anion Gap 4 L, BUN 22 H, Creatinine 1.25, EstGFR (MDRD) Af Amer 76, Est GFR (MDRD) Non-Af 63, BUN/Creatinine Ratio 17.6, Glucose 102, Calcium 9.4, Total Bilirubin 1.10 H, Direct Bilirubin 0.34 H, B-Natriuretic Peptide 228.2 H 07/30/23 17:26: Magnesium 1.8 07/31/23 06:30: WBC 7.6, RBC 4.86, Hgb 14.8, Hct 45.9, MCV 94.4 H, MCH 30.5, MCHC 32.2, Plt Count 187, MPV 10.4, Immature Gran % (Auto) 0.300, Neut % (Auto) 60.2, Lymph % (Auto) 23.0, [place] % (Auto) 11.8 H, Eos % (Auto) 3.5, Baso % (Auto)1.2 H, Absolute Neuts (auto) 4.6, Nucleated RBC % 0, Sodium 136, Potassium 3.6, Chloride 102, Carbon Dioxide 30.0, Anion Gap 4 L, BUN 20 H, Creatinine 1.26, EstGFR (MDRD) Af Amer 76, Est GFR (MDRD) Non-Af 63, BUN/Creatinine Ratio 15.9, Glucose 136 H, Calcium 9.2, Total Bilirubin 1.10 H, Triglycerides 85, Cholesterol 121, LDL Cholesterol 64, VLDL Cholesterol 17, HDL Cholesterol 40 Rhythm: EKG: ECHO: Stress Test: Cardiac Cath: PCI: CT Surgery: Holter monitor: EPS: PPM: CXR: Chest CT Scan: Radiography Diagnostic Testing: Radiology Impression Chest X-Ray 07/30/23 14:28 IMPRESSION: Mild degree of vascular congestion. Borderline cardiomegaly. Electronically Signed: Brandon Cabrera MD at 14:40 EDT Reading Location ID and State: [address] [place] [address] , Service support , 07/31/23 0962 <Electronically signed by Areli David MD> Cosigner Signature (if applicable): CC: Dr. Bharat Coronado MD~ Signed [facility] Work Phone: [phone] 864-342704-17-2024 History and physical note Author Martha Madrid [facility] July 30, 2023 8:04pm Note Date/Time July 30, 2023 4:3 9pm [facility] Medical Records Department [address] [place] [address] H&P Exam - Hospitalist 07/30/23 1638 MR#: [id number] Acct: [id number] Name: BHARAT FINCH Rep #:[id number] : 1965 57 From: Martha Madrid MD PCP: Dr. Bharat Coronado MD Status:AD M IN Location: [facility] [id number] HPI - General General Date of Admission: 07/30/23 Date of Service: 07/30/23 Chief Complaint: Dyspnea, weight gain, increasing LE edema, palpations. HPI Narrative The patient is a 57 y/o M w/ PMHx: Obesity, PAF, CAD s/p CABG and PCI, HTN, HLD,Hx Sick sinus syndrome/Tachy-bradley syndrome s/p pacemaker status, ALICIA on BIPAP who presents to the [facility] ED on 07/30/23 with history of dyspnea worsening as well as increasing lower extremity swelling, abdominal swelling and weight gain notably more so over the last 2 weeks with reported arrhythmia specifically A-fib also ongoing for the last 2 weeks with history of previously having been on Multaq but switched to metoprolol however this was potentially months prior unfortunately not seeking evaluation for his cardiology services but eventually contacted his category consultant office on day of presentation and it was their recommendation to present to the ED for evaluation. Patient reports that his normal baseline weight is 237 and upon current ED presentation he weighed 250 pounds. Workup in the ED included T96.7, heart rate 105, BP 123/105, respiratory rate 18, 97% on room air with most recent repeat vitals heart rate 111, BP 117/88, respiratory rate 21, 98% on room air, CBC with WBC 7.0, hemoglobin 14.3, MCV 94.3, platelet 155 without marked shift, CMP with BUN/creatinine 22/1.25, hepatic profile with T. bili 1.10, D bili 0.34 otherwisenot marked appearing, BNP 228.2, troponin 11, chest x-ray with mild degree of vascular congestion and borderline cardiomegaly, EKG with atrial fibrillation with RVR with heart rate 147 initially. In the ED patient administered Lopressor 5 mg IV x 1 and eventually diltiazem 25 mg IV x 1 and lasix 40 mg IV x1. [facility] Medical History (Updated 07/30/23 @ 19:[address] Martha Madrid MD) 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 Essential hypertension History of cardioversion (12/14/21) HLD (hyperlipidemia) Nonsustained paroxysmal ventricular tachycardia Obesity ALICIA treated with BiPAP PAF (paroxysmal atrial fibrillation) Sick sinus syndrome Tachy-bradley syndrome Home Medications aspirin 81 mg tablet,delayed release (Adult Low Dose Aspirin) 81 mg PO QDAY [facility] 08/29/17 [History Last Taken 07/30/23] hydrocodone-acetaminophen 5-325mg 5mg-325mg 0.5 tab PO DAILY PRN Pain 09/08/20 [History Last Taken 12/09/21] apixaban 5 mg tablet (Eliquis) 5 mg PO BID blood thinner #60 tabs 11/15/22 [Rx Last Taken 07/30/23] furosemide 40 mg tablet (Lasix) 40 mg PO DAILY water retention #180 tabs 01/31/23 [Rx Last Taken 07/30/23] lisinopril 5 mg tablet 5 mg PO DAILY #90 tabs 03/18/23 [Rx Last Taken 07/30/23] metoprolol tartrate 50 mg tablet 50 mg PO BID #180 tabs 03/18/23 [Rx Last Taken 07/30/23] simvastatin 40 mg tablet 40 mg PO QPM cholesterol #90 tabs 06/19/23 [Rx Last Taken 07/29/23] amoxicillin 875 mg-potassium clavulanate 125 mg tablet 1 tab PO BID 07/30/23 [History Last Taken 07/30/23] benzonatate 100 mg capsule 100 mg PO TID 07/30/23 [History Last Taken 07/30/23] testosterone 1 % (50 mg/5 gram) transdermal gel packet 1 packet transdermal DAILY 07/30/23 [History Last Taken 07/30/23] tizanidine 4 mg tablet 4 mg PO QHS PRN muscle spasm 07/30/23 [History Last Taken Unknown] Allergy/AdvReac Type Severity Reaction Status Date / Time chlorhexidine Allergy Itching,zhanna Verified 07/30/23 13:40 [From ChloraPrep Clear] h isopropyl alcohol Allergy Itching,zhanna Verified 07/30/23 13:40 [From ChloraPrep Clear] h Family History Father CAD (coronary artery disease) Diabetes Cancer Mother Diabetes Brother brain aneurysm rupture Surgical History H/O coronary artery bypass surgery (12/02/08) History of arthroscopy of left shoulder (03/2017) History of coronary artery stent placement (10/26/18) History of left heart catheterization (LHC) (10/26/18) History of tonsillectomy S/P cardiac pacemaker procedure Social History household members: spouse housing: house current occupational status: employed 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 HEENT: Eyes: No visual loss, blurred vision, double vision or yellow sclerae. Ears, Nose, Throat: No hearing loss, sneezing, congestion, runny nose or sore throat. SKIN: No rash or itching, lesions, wounds. CARDIOVASCULAR: + Edema, orthopnea, weight gain, palpitations. No chest pain, chest pressure or chest discomfort, syncopal events. RESPIRATORY: + Dyspnea. No cough or sputum, wheezing, hemoptysis. GASTROINTESTINAL: No anorexia, nausea, vomiting or diarrhea, abdominal pain, melena, BRBPR. GENITOURINARY: No dysuria, frequency, urgency or retention. NEUROLOGICAL: No headache, dizziness, syncope, paralysis, ataxia, numbness or tingling in the extremities, focal weakness, change in bowel or bladder control,seizure. MUSCULOSKELETAL: + muscle, back pain, joint pain or stiffness. HEMATOLOGIC: No anemia. + Easy bleeding/bruising. LYMPHATICS: No enlarged nodes. No history of splenectomy. PSYCHIATRIC: No history of depression or anxiety. ENDOCRINOLOGIC: No reports of sweating, cold or heat intolerance. No polyuria orpolydipsia. ALLERGIES: No history of asthma, hives, eczema or rhinitis. Vital Signs Vital Signs Vital Signs: 07/30/23 13:41 07/30/23 14:51 07/30/23 14:11 Temperature 96.7 F L Temperature Source Temporal Pulse Rate 105 H 99 Respiratory Rate 18 14 Blood Pressure 123/105 H 113/61 Blood Pressure Mean 111 78 Pulse Ox 97 95 99 Oxygen Delivery Method Room Air Nasal Cannula Room Air 07/30/23 15:00 07/30/23 16:00 Temperature Temperature Source Pulse Rate 109 H 111 H Respiratory Rate 18 21 H Blood Pressure 114/76 117/88 H Blood Pressure Mean 88 97 Pulse Ox 96 98 Oxygen Delivery Method Weight Weight: 251 lb 11.2 oz Body Mass Index (BMI) 37.1 Physical Exam Narrative Physical Examination: General: Awake, alert, oriented x 3 and cooperative, seated upright in the ED bed, fatigued, no overt evidence of any respiratory distress. Skin: Normal color, normal turgor, no icterus, no cyanosis except notable bilateral lower extremity venous stasis skin changes. HEENT: AT/NC, EOMI, PERRLA, MMM, no carotid bruits, + JVD noted. Lungs: Diminished, greater bases, very minimal rales, no evidence of any distress, no rhonchi or wheezing. Heart: Irregular regular; no gallop, rub audible. Abdomen: Soft, obese, NTTP, distant BS, difficult to discern distention and HSM given habitus. Extremities: No cyanosis, no clubbing, significant bilateral lower extremity 2- 3+ pitting edema pedal to above-knee. Neurological: Patient awake, alert, oriented as noted, cognitive function intact; pupils equally reactive to light and accommodation, cranial nerves grossly normal, moving all 4 extremities, no focal deficits, strength moderatelyto severely global decrease secondary to acute presentation complaints. Psychiatric: Affect appears flat, fatigued, no acute evidence of depressive or anxiety feelings. Results Lab / Micro Data 07/30/23 14:26 07/30/23 14:26 Labs: Laboratory Results - last 24 hr 07/30/23 14:26: WBC 7.0, RBC 4.74, Hgb 14.3, Hct 44.7, MCV 94.3 H, MCH 30.2, MCHC 32.0, RDW Std Deviation 45.1 H, RDW Coeff of Ashwini 13.1, Plt Count 155, MPV 10.8, Immature Gran % (Auto) 0.300, Neut % (Auto) 59.3, Lymph % (Auto) 22.7, [place] % (Auto) 13.5 H, Eos % (Auto) 2.9, Baso % (Auto) 1.3 H, Absolute Neuts (auto) 4.1, Absolute Lymphs (auto) 1.58, Nucleated RBC % 0, Sodium 139, Potassium 3.8, Chloride 104, Carbon Dioxide 31.0, Anion Gap 4 L, BUN 22 H, Creatinine 1.25, Estim Creat Clear Calc 81.24, Est GFR (MDRD) Af Amer 76, Est GFR (MDRD) Non-Af 63, BUN/Creatinine Ratio 17.6, Glucose 102, Calcium 9.4, TotalBilirubin 1.10 H, Direct Bilirubin 0.34 H, AST 30, ALT 28, Alkaline Phosphatase 86, Troponin I High Sens 11, B-Natriuretic Peptide 228.2 H, Total Protein 7.3, Albumin 3.9, Globulin 3.4 Imaging Radiology Impression Chest X-Ray 07/30/23 14:28 IMPRESSION: Mild degree of vascular congestion. Borderline cardiomegaly. Electronically Signed: Brandon Cabrera MD at 14:40 EDT , Assessment & Plan Assessment/Plan (1) Atrial fibrillation with RVR: PLAN: Plan The patient is a 57 y/o M w/ PMHx: Obesity, PAF, CAD s/p CABG and PCI, HTN, HLD,Hx Sick sinus syndrome/Tachy-bradley syndrome s/p pacemaker status, ALICIA on BIPAP who presents to the [facility] ED on 07/30/23 with history of dyspnea worsening as well as increasing lower extremity swelling, abdominal swelling and weight gain notably more so over the last 2 weeks with reported arrhythmia specifically A-fib also ongoing for the last 2 weeks with history of previously having been on Multaq but switched to metoprolol however this was potentially months prior unfortunately not seeking evaluation for his cardiology services but eventually contacted his category consultant office on day of presentation and it was their recommendation to present to the ED for evaluation. #1. Paroxsymal atrial fibrillation w/ RVR with resulting #2: EKG in ED w/ atrial fibrillation w/ RVR. Patient administered lopressor IV and cardizem 20 mgIV in the ED with transient improvement. Will admit to PCU, maintain on telemetry, obtain cardiac enzyme serial set, obtain magnesium level, obtain TSH level. Recent 06/30/2023 echocardiogram with normal LV size, LV systolic functionlower limits of normal, mild concentric LVH, LVEF 50%, mildly enlarged left atrium thus will defer repeat. Continue patient eliquis regimen. If patient ratedoes not improvement with oral dose metoprolol now will transition to cardizem drip given at least initial improvement in the ED. If intractable low threshold to involve Cardiology if needed. #2. Acute Decompensated HFpEF: Likely secondary to #1 ongoing, poorly controlled. Patient administered IV lasix in the ED, will maintain on cardiac telemetry, obtain cardiac enzyme series, obtain serial EKGs, continue IV lasix diuresis, monitor I/Os, maintain on intake restriction, continue medical therapy, obtain TSH and magnesium level. Recent 06/30/2023 echocardiogram with normal LV size, LV systolic function lower limits of normal, mild concentric LVH, LVEF 50%, mildly enlarged left atrium thus will defer repeat. Place snug josey wraps. #3. CAD: Status post CABG x 3 (SHEIKH-D2, Sequential SVG-LPDA and OM2 12/02/2008;PCI-KAREN-OM2) and PCI 10/2018 second obtuse marginal branch as well as the saphenous vein graft to the second obtuse marginal branch), will continue aspirin, Eliquis, metoprolol, lisinopril although as noted may require transition to IV Cardizem drip given #1. Per current list not on statin therapy. #4. Hypertension: Continue home regimen including metoprolol, lisinopril, IV Lasix and as noted if necessary may transition to IV Cardizem drip, PRN hydralazine. #5. Hyperlipidemia: Not on statin therapy, FLP in a.m. #6. Hx Sick sinus syndrome/Tachy-bradley syndrome: s/p pacemaker status, encourage continued outpatient follow-up with Cardiology as previously arranged. #7. Obesity: Weight loss and lifestyle changes encouraged. #8. ALICIA: BiPAP nightly. #9. DVT prophylaxis: Will continue patient home Eliquis regimen. #10. CODE status: Patient HCPOA and living will are not in place but he notes his fianc?e Rocky Oneill would be his medical decision-maker if necessary. Discussed CODE status at length including difference between FULL code, DNR-CCA and DNR-CC status. Following discussions about the differences in these status, requested Full Code status. Advanced Care Planning Face to Face Time: 16 minutes. Charges/Coding Visit Charges Inpatient E&M: 31538 Init Hosp L3 Procedures Hospitalists Procedures: 99113 Advncd Care Plan 30 Min 07/30/231954 <Electronically signed by Martha Madrid MD> Cosigner Signature (if applicable): CC: Dr. Martha Madrid MD; Dr. Bharat Coronado MD~ Signed ADDENDUM by Dr. Martha Madrid MD on 07/30/23 at 2003 Addendum Patient informing staff that he was recently started on augmentin for sinus infection, will continue. 07/30/232003<Electronically signed by Martha Madrid MD> Cosigner Signature (if applicable): cc: Dr. Martha Madrid MD; Dr. Bharat Coronado MD ~* Signed [facility] Work Phone: [phone]) 905-722104-17-2024 Discharge summary Author Javier Potts [facility] July 30, 2023 5:15pm Note Date/Time July 30, 2023 2:2 0pm [facility] Medical Records Department [address] [place] [address] Emergency Department Summary 07/30/23 MR#: [id number] Acct: [id number] Name: BHARAT FINCH Rep #:[id number] : 1965 57 From: Javier Potts DO PCP: Dr. Bharat Coronado MD Status:RE G ER Location: ED HPI History of Present Illness Chief Complaint: Shortness of Breath Narrative Narrative: 57-year-old male with history of CAD, A-fib, CABG, cardiac stent, hypertension, hyperlipidemia presenting with dyspnea, lower extremity edema., Abdominal swelling. Patient states he has been in A-fib for approximately 2 weeks. He relates that he previously was on Multaq but has been switched to metoprolol. He believes physical months ago. He states that over the last 2 weeks he is felt like he has been in A-fib but he states he is very stubborn and did not want to be evaluated. He states that he called Dr. Enriquez's office and they wereable to tell him that his heart rhythm was in A-fib for the last 2 weeks. He states the provider called him back but he decided come to emergency room by concern for blood swelling. Patient denies any chest pain. Patient is on Eliquis and has been for 2 years. He states he is on metoprolol 50 mg p.o. twice daily and has not missed any doses. Is taking Lasix 40 mg daily. Patientalso states that he has a pacemaker which was placed by Dr. Enriquez. 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 Atrial fibrillation Essential hypertension History of cardioversion (12/14/21) HLD (hyperlipidemia) Nonsustained paroxysmal ventricular tachycardia ALICIA treated with BiPAP PAF (paroxysmal atrial fibrillation) Palpitations Sick sinus syndrome Tachy-bradley syndrome Home Medications aspirin 81 mg tablet,delayed release (Adult Low Dose [facility]irin) [facility] [History Last Taken 07/30/23] hydrocodone-acetaminophen 5-325mg 5mg-325mg 0.5 tab PO DAILY PRN Pain 09/08/20 [History Last Taken 12/09/21] apixaban 5 mg tablet (Eliquis) 5 mg PO BID blood thinner #60 tabs 11/15/22 [Rx Last Taken 07/30/23] furosemide 40 mg tablet (Lasix) 40 mg PO DAILY water retention #180 tabs 01/31/23 [Rx Last Taken 07/30/23] lisinopril 5 mg tablet 5 mg PO DAILY #90 tabs 03/18/23 [Rx Last Taken 07/30/23] metoprolol tartrate 50 mg tablet 50 mg PO BID #180 tabs 03/18/23 [Rx Last Taken 07/30/23] simvastatin 40 mg tablet 40 mg PO QPM cholesterol #90 tabs 06/19/23 [Rx Last Taken 07/29/23] amoxicillin 875 mg-potassium clavulanate 125 mg tablet 1 tab PO BID 07/30/23 [History Last Taken 07/30/23] benzonatate 100 mg capsule 100 mg PO TID 07/30/23 [History Last Taken 07/30/23] testosterone 1 % (50 mg/5 gram) transdermal gel packet 1 packet transdermal DAILY 07/30/23 [History Last Taken 07/30/23] tizanidine 4 mg tablet 4 mg PO QHS PRN muscle spasm 07/30/23 [History Last Taken Unknown] Allergy/AdvReac Type Severity Reaction Status Date / Time chlorhexidine Allergy Itching,zhanna Verified 07/30/23 13:40 [From ChloraPrep Clear] h isopropyl alcohol Allergy Itching,zhanna Verified 07/30/23 13:40 [From ChloraPrep Clear] h Family History Father CAD (coronary artery disease) Diabetes Cancer Mother Diabetes Brother brain aneurysm rupture Surgical History H/O coronary artery bypass surgery (12/02/08) History of arthroscopy of left shoulder (03/2017) History of coronary artery stent placement (10/26/18) History of left heart catheterization (LHC) (10/26/18) History of tonsillectomy Social History household members: spouse housing: house current occupational status: employed 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 Smoking Status: Never smoker alcohol intake: current alcohol intake frequency: a few times a month substance use type: does not use caffeine: Yes Type: carbonated beverages Number of servings: 5 and coffee Number of servings: 1 what type of physical activity do you participate in: none do you feel safe at home: Yes ROS ROS ED Constitutional Constitutional ED: Denies chills or fever(s) Eyes Eyes: Denies change in vision ENT ENT ED: Denies rhinorrhea or sore throat Cardiovascular Cardiovascular: Reports orthopnea, palpitations and racing heartbeat Respiratory/Chest Respiratory/Chest: Reports dyspnea, dyspnea on exertion and orthopnea Gastrointestinal Gastrointestinal: Reports other Details: Abdominal Genitourinary Genitourinary ED: Denies dysuria or hematuria Musculoskeletal Musculoskeletal: Denies arthralgias Integumentary Denies abscess Neurologic Neurologic: Denies headache(s) or paresthesias EXAM Physical Exam Const Vital Signs: 07/30/23 13:41 07/30/23 14:51 07/30/23 14:11 Temperature 96.7 F L Temperature Source Temporal Pulse Rate 105 H 99 Respiratory Rate 18 14 Blood Pressure 123/105 H 113/61 Blood Pressure Mean 111 78 Pulse Ox 97 95 99 Oxygen Delivery Method Room Air Nasal Cannula Room Air 07/30/23 15:00 07/30/23 16:00 Temperature Temperature Source Pulse Rate 109 H 111 H Respiratory Rate 18 21 H Blood Pressure 114/76 117/88 H Blood Pressure Mean 88 97 Pulse Ox 96 98 Oxygen Delivery Method Positive well nourished General Appearance ED: Negative for pallor HEENT Reports moist mucous membranes atraumatic and trauma Eyes PERRL and EOMs intact bilaterally Resp Auscultation: diminished lung sounds bilateral lower Cardio Rate: tachycardic Rhythm: abnormal rhythm irregularly irregular GI non-tender Extremity General Extremety ED: Yes edema General Extremity: edema Neuro oriented x3 and CN's II-XII intact bilaterally Sensorium / Orientation: alert Psych mental status grossly normal Skin no wounds General Skin Exam: Negative for jaundice or pallor MDM MDM MDM Narrative Medical decision making narrative: 57-year-old male presenting with tachycardia. He is in A-fib based on his EKG which on my interpretation is A-fib at 147 bpm. Patient states that Dr. Andersen was able to tell him that has been in A-fib for 2 weeks. He came to the ER prior to receiving a call back. Differential includes ACS, CHF, pneumonia, dehydration, anemia, electro normalities. Patient was given Cardizem 25 mg. CBC to assess white blood cell count, hemoglobin and platelets. BMP to assess renal function, electrolytes. LFTs to assess liver function. High-sensitivity troponin will be obtained to assess for ischemia. BNP to assess for CHF. Patient placed on the monitor. Currently other than his tachycardia his vital signs are stable. Reevaluation the patient has initially had heart rates in the90s and heart rate around 100. Was given some Lopressor. CBC shows normal white blood cell count of 7.0. Hemoglobin 3. Platelets are normal at 85. Creatinine 1.25. Electrolytes are normal. Total bilirubin elevated 1.10, direct bili 1.4. AST and ALT all normal. BNP 28.2 and troponin is 11. Chest x-ray my interpretation shows CHF. Radiology interprets this and agrees. Patient was given 40 mg of Lasix p.o. Patient discussed with hospitalist for admission. Impression: 1. A-fib with RVR 2. CHF Lab Data Labs: Laboratory Results - last 24 hr 07/30/23 14:26 WBC 7.0 RBC 4.74 Hgb 14.3 Hct 44.7 MCV 94.3 H MCH 30.2 MCHC 32.0 RDW Std Deviation 45.1 H RDW Coeff of Ashwini 13.1 Plt Count 155 MPV 10.8 Immature Gran % (Auto) 0.300 Neut % (Auto) 59.3 Lymph % (Auto) 22.7 [place] % (Auto) 13.5 H Eos % (Auto) 2.9 Baso % (Auto) 1.3 H Absolute Neuts (auto) 4.1 Absolute Lymphs (auto) 1.58 Nucleated RBC % 0 Sodium 139 Potassium 3.8 Chloride 104 Carbon Dioxide 31.0 Anion Gap 4 L BUN 22 H Creatinine 1.25 Estim Creat Clear Calc 81.24 Est GFR (MDRD) Af Amer 76 Est GFR (MDRD) Non-Af 63 BUN/Creatinine Ratio 17.6 Glucose 102 Calcium 9.4 Total Bilirubin 1.10 H Direct Bilirubin 0.34 H AST 30 ALT 28 Alkaline Phosphatase 86 Troponin I High Sens 11 B-Natriuretic Peptide 228.2 H Total Protein 7.3 Albumin 3.9 Globulin 3.4 Radiography Diagnostic Testing: Clinical Impression(s) from Imaging Studies Chest X-Ray 07/30/23 14:28 IMPRESSION: Mild degree of vascular congestion. Borderline cardiomegaly. Electronically Signed: Brandon Cabrera MD at 14:40 EDT Reading Location ID and State: [facility] / [place] , Service support , Discharge Plan Triage Chief Complaint: Shortness of Breath ED Provider: Javier Potts Dx/Rx/DC Orders Prescriptions: No Action aspirin [Adult Low Dose Aspirin] 81 mg tablet,delayed release (DR/EC) 81 mg PO QDAY hydrocodone-acetaminophen 5-325 mg tablet 0.5 tab PO DAILY PRN (Reason: Pain) furosemide [Lasix] 40 mg tablet 40 mg PO DAILY Qty: 180 3RF benzonatate 100 mg capsule 100 mg PO TID amoxicillin-pot clavulanate 875-125 mg tablet 1 tab PO BID testosterone 1 % (50 mg/5 gram) gel in packet 1 packet transdermal DAILY tizanidine 4 mg tablet 4 mg PO QHS PRN (Reason: muscle spasm) Eliquis 5 mg tablet 5 mg PO BID Qty: 60 11RF Hold Instructions: Resume on 05/18/22. metoprolol tartrate 50 mg tablet 50 mg PO BID Qty: 180 3RF lisinopril 5 mg tablet 5 mg PO DAILY Qty: 90 3RF simvastatin 40 mg tablet 40 mg PO QPM Qty: 90 3RF Primary Care Provider: Bharat Coronado Referrals: Bharat Coronado MD [Primary Care Provider] - What to do if you have Problems For any increased pain, shortness of breath, bleeding, nausea or vomiting, chestpain, or any unexpected problems, contact your Primary Care Provider. Call [facility] ([phone]) or report to the closest Emergency Room. Call 911 if necessary. 07/30/23 1314 <Electronically signed by Javier Potts DO> Cosigner Signature (if applicable): CC: Dr. Bharat Coronado MD ~ Signed [facility] Work Phone: [phone] 431-510104-15-2024 History of Present illness Narrative* Donavan Ludwig MD - 07/28/2023 9:19 AM EDT Patient presents with: Sinus Problem: pressure, cough, headache x 10 days HPI: Feeling sick for 10 days. Worsened the last 2 days. Positive symptoms: Cough, Sinus pressure, Headache, Chest tightness, Nasal Congestion, Rhinorrhea, Post nasal drainage, Chills, Malaise, Negative symptoms: Fever, OTC: Mucinex History of lingering coughs. Denies history of smoking, asthma, or seasonal allergies. 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 lisinopril (ZESTRIL) 10 mg tablet Take 1 [...] Take 1 tablet by mouth once daily. albuterol HFA (VENTOLIN HFA) 90 mcg/actuation inhaler Inhale 2 Puffs as instructed every 4 hours asneeded for wheezing/shortness of breath for up to 10 days. benzonatate (TESSALON PERLES) 100 mg capsule Take 1 capsule by mouth three times a day as needed for cough. (Patient not taking: Reported on 07/28/2023) MULTAQ 400 mg tab TAKE 1 TABLET BY MOUTH TWICE DAILY WITH FOOD/MEAL (Patient not taking: Reported on 07/28/2023) No current facility-administered medications for this visit. ALLERGIES: ALLERGIES No Known Allergies VITALS: BP 122/72 Pulse 64 Temp 36.9 C (98.5 F) Resp 16 Wt 115 kg (253 lb 8.5 oz) SpO2 97% BMI 37.44 kg/m PHYSICAL EXAM: GEN: mildly ill appearing HEENT: PERRL, EOMI, conjunctiva watery with edema Ears: canals with cerumen. Visible TMs without erythema, bulge, or effusion Sinuses: non-tender frontal sinus, non-tender maxillary sinuses Throat: moist mucous membranes, mild erythema, no exudate Neck: supple, no thyromegaly, no lymphadenopathy HEART: regular rate and rhythm, no murmurs LUNGS: clear to auscultation, no wheezes or crackles, no increased WOB; drainage cough ASSESSMENT/PLAN: 1. Influenza-like illness - ICD9: 487.1, ICD10: J11.1 (primary diagnosis) 2. Acute non-recurrent sinusitis, unspecified location - ICD9: 461.9, ICD10: J01.90 - suspect bacterial sinusitis after viral URI, differential includes new illness this weekend such as influenza or COVID-19. - Discussed supportive care treatment with rest, cold medicine, and analgesia. - Red flags to seek further treatment include chest pain, shortness of breath, and lethargy; in theER if severe. - INFLUENZA A&B MOLECULAR (POC) - negative - COVID & INFLUENZA A/B & RSV NAAT, ROUTINE - BENZONATATE 100 MG CAPSULE - AMOXICILLIN 875 MG-POTASSIUM CLAVULANATE 125 MG TABLET Donavan Ludwig MD documented in this encounterRegional Medical Center01-12-2024 History of Present illness Narrative* Argelia Perez RT(R) - 04/25/2023 10:40 AM EST Radiology Service Progress Note PATIENT NAME: Bharat Finch DATE OF SERVICE: April 25, 2023 TIME: 10:55 AM PATIENT IDENTITY VERIFICATION COMPLETED USING TWO (2) IDENTIFIERS: Name and Date of confirmedby patient verbally. FALL SCREENING: Has the patient had 2 falls in the last year or 1 fall with injury or currently using an Ambulatory Assistive Device (Walker, Cane, Wheelchair, Crutches, etc.)? No PATIENT GENDER DATA: Male PATIENT RELEVANT IMPLANT DATA REVIEWED: Not Applicable RADIOLOGY DEPARTMENT: General X-ray: Exam(s) Completed: Abdomen X-Ray: Abdomen PERIPHERAL IV DATA: Not applicable SIGNED BY: RT Jno(R) April 25, 2023 10:55 AM documented in this encounterRegional Medical Center12-11-2023 Miscellaneous Notes* Telephone Encounter - Lexie Vernon - 03/24/2023 2:29 PM EST Patient still in hospital Called and left vox Re: appointment on 04/28/23 at 10am, green location, kub prior--ok'd by letitia Ward you Lexie * Telephone Encounter - Vinny Davis Jr., MD - 03/24/2023 1:14 PM EST [facility] or 03/24/23 Fu with me 1 month Kub prior ordered documented in this encounterRegional Medical Center12-08-2023 Miscellaneous Notes* Telephone Encounter - Michelle Shepherd Ma - 03/21/2023 9:50 AM EST Faxed. Michelle Shepherd Ma * Telephone Encounter - Bharat Coronado MD - 03/20/2023 6:11 PM EST Form done Bharat Coronado MD * Telephone Encounter - Michelle Shepherd Ma - 03/18/2023 2:20 PM EST Type of letter/form/fax request - Androgens Enrollment Form Form received from fax on 1 floor and placed on desk () for completion. Completed form needs to be faxed to [facility] at [phone]. Requesting OV notes and labs be faxed along with completed from. (These have been printed and attached to form) Route to [place] when form completed for processing documented in this encounterRegional Medical Center12-05-2023 History of Present illness Narrative* Derick Larsen APRN.MERCHANDISE FLOW TEAM LEADER - 03/18/2023 4:12 PM ESTSummary: PAT Images from the original note were [...] sinus syndrome, in place since 05/10/22 at [facility] Patient states last device check around January, states feeling well since PPM placement CCC RN to follow up on last device check and recommendation for surgery Follow cardiology BRAYAN 07/30/22 Today at [facility], HR showed 124BPM, patient denies chest pain, SOB, palpitation. He states this AM got a call from cardiology that HR was high, was instructed to increase metoprolol dose to 50mg and lower the lisinopril dose. EKG done today showed HR 122BPM, Sinus tachycardia with PACs, T wave abnormality Called patient's cardiology office and spoke with Rosaura SO, she said PPM was running briefly Afib with RVR, hence the call to patient. [...] place Cardioversion 12/2021 Taking Eliquis, metoprolol Cardiology [facility] ECHO 01/03/22 CHF (congestive heart failure) (HCC) Lasix 01/03/22 ECHO showed EF 55%, segmental dysfunction with persevered EF Follow cardiology BLE edema, per patient stable, L>R Coronary artery disease involving rampart heart S/p CABG x3v SHEIKH-D2, Sequential SVG-LPDA [...] 4.0x12mm synergy stent 10/26/2018 documented in this encounterRegional Medical Center12-05-2023 History and physical note * Derick Larsen APRN.KORINA - 03/18/2023 3:00 PM EST Images from the original note were not included. HISTORY AND PHYSICAL EXAMINATION SERVICE DATE: 03/18/2023 SERVICE TIME: 7:34 PM PRIMARY CARE PHYSICIAN: Bharat Coronado MD Assessment Patient has the following medical conditions which may affect emmanuel-operative course: Preop examination See note for medical conditions which may affect emmanuel-operative course addressed in visit today. Renal calculus, right Surgery scheduled 03/24/23 Presence of cardiac pacemaker Indicated for Sinoatrial node dysfunction/Sick sinus syndrome, in place since 05/10/22 at [facility] Patient states last device check around January, states feeling well since PPM placement CCC RN to follow up on last device check and recommendation for surgery Follow cardiology BRAYAN 07/30/22 Today at [facility], HR showed 124BPM, patient denies chest pain, SOB, palpitation. He states this AM got a call from cardiology that HR was high, was instructed to increase metoprolol dose to 50mg and lower the lisinopril dose. EKG done today showed HR 122BPM, Sinus tachycardia with PACs, T wave abnormality Called patient's cardiology office and spoke with Rosaura SO, she said PPM was running briefly Afib with RVR, hence the call to patient. [...] place Cardioversion 12/2021 Taking Eliquis, metoprolol Cardiology [facility] ECHO 01/03/22 CHF (congestive heart failure) (HCC) Lasix 01/03/22 ECHO showed EF 55%, segmental dysfunction with persevered EF Follow cardiology BLE edema, per patient stable, L>R Coronary artery disease involving rampart heart S/p CABG x3v SHEIKH-D2, Sequential SVG-LPDA [...] which included preparing to see the patient, [id number] patient care, completing clinical documentation, obtaining and/or reviewing separately obtained history, performing a medically appropriate examination, and counseling and educating the patient/family/caregiver. REASON FOR VISIT: Bharat Finch is a 57 year old male who is scheduled for Procedure(s): EXTRACORPOREAL SHOCKWAVE LITHOTRIPSY UNILATERAL (Right) at the request of DrKelley @[email or web address]@ for routine H&P. My final recommendation will be communicated back to the requesting physician by way of shared medical record or letter. Subjective The patient has the following: ACTIVE PROBLEM LIST Injury of Neck Hypogonadism in Male Coronary Artery Disease Involving Ewiiaapaayp Heart Ed (Erectile Dysfunction) of Organic Origin Preop Examination Renal Calculus, Right Essential (Primary) Hypertension Hld (Hyperlipidemia) History of Coronary Artery Bypass Surgery Alicia Treated With Bipap Presence of Cardiac Pacemaker Atrial Fibrillation (Hcc) Chf (Congestive Heart Failure) (Hcc) COVID-19 Immunization Status Overdue - Covid-19 Vaccine () Overdue since 12/13/2022 10/29/2022 Postponed until 10/30/2023 by Tc Evans Ma (Declined at this time) 08/10/2020 Imm Admin: COVID-19 original vaccine, age 12+ yr, monovalent (PFIZER- BIONTECH - PURPLE TOP) 07/17/2020 Imm Admin: COVID-19 original vaccine, age 12+ yr, monovalent (PFIZER- BIONTECH - PURPLE TOP) Only the first 3 [...] 57 year old male who presents to [facility] for a scheduled right ESWL with Dr. Davis. Patient c/o right renal calculi, 03/10/23 XR abdomen showed 9 mm calculus. Patient reports microscopic hematuria, no visible hematuria, denies dysuria, abdominal or flank pain. After discussing with surgeon, patient agrees to surgical intervention. Risk and benefits discussed by surgeon. Patientdenies any other problems or concerns at this [...] angina, atrial fibrillation, chest pain, DVT/PE and recentMI. GI: Negative for: abdominal pain, dysphagia, hepatitis, liver disease, nausea, vomiting and ETOH >2 drinks/day. : See HPI. Negative for: renal failure. Endocrine: Negative for: diabetes mellitus, hyperthyroidism, hypothyroidism and hyperparathyroidism. Hematology: Positive for: chronic anti-coagulation/platelet meds. Patient is on anti- coagulation/platelet medication(s): Aspirin and DOAC. 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 PAST SURGICAL HISTORY OF Left 05/24/2022 Tear duct surgery for left eye PCI/STENT 2019 PCI to KAREN-OM2 w/2.5x16mm synergy and KAREN-Sequential [...] 1 tablet by mouth twice daily as needed.Taking Yes metoprolol tartrate, short acting, (LOPRESSOR) 50 [...] by mouth three times daily as needed forcough. Patient not taking: Reported on 03/18/2023 Not [...] or any previous visit (from the past 67375 hour(s)). Prepared for Surgery: CONSULTS: The following [...] 2:27 PM PAGER/CONTACT #: documented in this encounterRegional Medical Center12-05-2023 Instructions* Patient Instructions* Derick Larsen APRN.CNP - 03/18/2023 2:26 PM EST PATIENT PREOPERATIVE INSTRUCTIONS Your surgeon has scheduled for your procedure at this surgery center: [facility]: [phone], [address] [id number] Please read below carefully for your personalized instructions. Surgery Date: 03/24/23 Your surgeon's office will provide you with your ARRIVAL TIME for surgery. - If you have not received an arrival time by the afternoon before your surgery date, please followup with your surgeon's office. - If you are scheduled for Friday surgery, please make sure you have your arrival time by Friday afternoon. - Please be aware that emergency situations arise, which may delay or change your surgical time. Ifthis happens, your surgeon's office will notify you [...] Mobic, etc.) 7 days before surgery, or asdirected by your surgeon. You may take Tylenol (Acetaminophen) or any of your pain medications that do not contain aspirin orNSAIDS as needed. IF YOU TAKE ANY OF [...] are prescribed Marinol or any other prescription formon marijuana or CBD. Medications: Pre-Surgery Med Instructions [...] surgery. - YOU MUST HAVE A RESPONSIBLE MOTOR MECHANIC TAKE YOU HOME. A CHIEF OF SAFETY AND PROTECTION, CAB OR UBER MOTOR MECHANIC CANNOT BE MADEA RESPONSIBLE MOTOR MECHANIC. - If you are undergoing an outpatient [...] date of surgery. Visitation: [facility] to any [facility] facility: Any individual who is sick should not visit. Visitors to patients with COVID-19 must follow these guidelines, which include wearing a mask, eye protection, gown and gloves. [facility] in [place] Visitation hours: 7 AM to 9 PM. Pre-Surgery Unit - Patients may have up to 2 visitors at a time. PACU recovery Unit - Patients may have up to 1-2 visitors at a time. [facility] [place] Pre-Surgery area - 1 visitor at a [...] Advance Directive, please fax a copy to [phone] or email to for it to be added to your chart. If you do not have an Advance Directive, you can find the appropriate form and more information at [email or web address]. We recommend that youcomplete the Advance Directive form found on the website and bring it with you the day of your surgery. It can be witnessed and scanned into your chart that day. IF you are having a TOTAL KNEE, HIP REPLACEMENT OR ORTHOPEDIC SURGERY: - Orthopedic patients at [facility] listed as outpatient, please bring walker into the building. - Orthopedic patients at [facility] listed as to be admitted, please leave walkers in the car or with a family member. - Orthopedic patients at [facility] [place], please bring the walker into the building day of surgery. Derick Larsen APRN.CNP 03/18/23 documented in this encounterRegional Medical Center12-05-2023 Miscellaneous Notes* Telephone Encounter - Bharat Coronado MD - 03/18/2023 11:30 AM EST OK to refill as ordered Bharat Coronado MD * Telephone Encounter - Tc Evans Ma - 03/18/2023 10:06 AM EST Last OV: 12/27/22 Next OV: None, pt was to have labs done in 3 months from last wellness visit, completed in January.Was to f/u, was seen acutely. Last Rx: 10/29/22 30 packet w/2 refills. Pt needs appt. Tc Evans Ma * Telephone Encounter - Suellen Mason - 03/18/2023 9:35 AM EST Patient has been identified by name and date of : Yes Requested Prescriptions Pending Prescriptions Disp Refills testosterone (ANDROGEL) 50 mg / 5 g (1%) 30 Packet 2 Sig: Apply 1 Packet as directed once daily for 90 days. RX INSTRUCTIONS: Patient aware RX will be sent to pharmacy. No need to notify patient. Suellen Henriquez documented in this encounterRegional Medical Center11-27-2023 Procedure note* Vinny Davis Jr., MD - 03/10/2023 11:15 AM EST CYSTOSCOPY PROCEDURE NOTE: Bharat Finch is a 57 year old male who presents with hematuria gross for cystoscopy. Pt ID verified with patient: Yes Fire risk assessment done Procedure verified with patient: Yes Procedure confirmed with physician and senior support analyst: Yes UNIVERSAL PROTOCOL / SAFETY CHECKLIST Procedure [...] (optional for EMERGENT procedures): No specimen collected. Vinny Davis Jr, MD Pre procedure dx: gross hematuria Post procedure dx: same A urinalysis was performed revealing no evidence of infection. The benefits, risks, alternatives of the cystoscopy procedure and personnel were discussed with thepatient. The verbal consent was obtained and the [...] the flexible cystoscope was removed atraumatically. The patienttolerated the procedure without complications. Patient was given [...] surgery failure, , heart attack, stroke, deep veinthrombosis, pulmonary embolus. Patient verbalized understanding and agrees to proceed. Vinny Davis Jr, MD documented in this encounterRegional Medical Center11-15-2023 Miscellaneous Notes* Telephone Encounter - Lani Tee - 02/26/2023 10:09 AM EST Pt confirmed cysto with Dr. Davis in [facility] 03/10/23. Selena * Telephone Encounter - Lani Tee - 02/26/2023 8:48 AM EST Left vm pt needs scheduled for cysto for hematuria. Ref by Jace Munoz. Selena * Telephone Encounter - Suzi Wyatt LPN - 02/24/2023 12:03 PM EST Order placed 02/10/2023 under Procedures. * Telephone Encounter - Suzi Wyatt LPN - 02/24/2023 10:26 AM EST Yasmani, order is needed please. Suzi Wyatt LPN * Telephone Encounter - Sofie Garcia LPN - 02/21/2023 2:11 PM EST Patient states he missed a call to schedule cystoscopy. He is available at [phone] this afternoon. Sofie Garcia LPN * Telephone Encounter - Yasmani Munoz PA-C - 02/21/2023 10:00 AM EST Yes it always done after the urine results are back since they only take 2-3 days , but its not dependent on urine tests, it is part of the work-up , please have him schedule it it is the most important part. RADHA Jamison MT, PA-C * Telephone Encounter - Suzi Wyatt LPN - 02/20/2023 8:33 AM EST Called patient. Verified name and date of . Patient informed- verbalizes understanding. Patient states he understood the cystoscopy would be done once these results came back. Suzi Wyatt LPN * Telephone Encounter - Yasmani Munoz PA-C - 02/19/2023 7:42 PM EST Please let patient know small kidney stone in kidney no obstruction. Could be cause of hematuria but still needs Cystoscopy bu no appointment I could see. RADHA Jamison MT, PA-C IMPRESSION: 7 mm RIGHT intrarenal calculus. No renal mass or upper urothelial tract lesion. documented in this encounterRegional Medical Center10-20-2023 Miscellaneous Notes* Telephone Encounter - Lani Tee - 01/31/2023 10:28 AM EDT Left vm pt needs scheduled for cysto with any provider for gross hematuria. CT 02/18. Ref by Jace Munoz. Selena documented in this encounterRegional Medical Center09-15-2023 History of Present illness Narrative* Wily Mcghee APRN.MERCHANDISE FLOW TEAM LEADER - 12/27/2022 1:20 PM EDT Chief Complaint Patient presents with: Follow Up [...] Ketones, Urine Trace, Negative Negative Negative Specific [place], Ur 1.005 - 1.030 1.026 1.007 Hemoglobin/Blood,Ur [...] ICD9: 599.0, ICD10: N39.0 -Resolved Wily Mcghee APRN.KORINA RTO as needed. This note was partly generated using Comprehend Systemson voice recognition dictation and may contain some misspelled or inaccurate words missed on review. documented in this encounterRegional Medical Center08-21-2023 Miscellaneous Notes* Telephone Encounter - Michelle Shepherd Ma - 12/02/2022 7:11 PM EDT Pt notified via WISHIhart. Michelle Shepherd Ma/ * Telephone Encounter - Bharat Coronado MD - 12/02/2022 7:01 PM EDT His urine culture does show signs of an infection, so I have ordered 10 days of Bactrim DS to take twice daily. I would like to have him repeat a urine test in 2 weeks to make sure the infection has cleared. Bharat Coronado MD * Telephone Encounter - Johanna Higgins RN - 12/02/2022 1:46 PM EDT Patient requesting PCP to advise on recent lab tests from 11/28, when able. Thank you. 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 Tadalafil (CIALIS) 20 mg tab(s) Take 1 [...] in no acute distress, well-hydrated, well nourished. andObese. Health Maintenance List HEPATITIS B(1 of 3 [...] Past Histories independently gathered by the clinical senior support analyst and the remaining scribed note accurately describes my personal service to the patient. Medical Decision Making: Problems: Moderate: New problem with uncertain prognosis Data: Unique test(s) ordered: 2 Medical Decision Making Level: 3 - Low Bharat Coronado MD The documentation for this note was completed by Tc Evans Ma acting as scribe for Bharat Coronado MD. November 28, 2022 4:27 PM. Tc Evans Ma documented in this encounterReg[facility] Center08-16-2023 Miscellaneous Notes* Telephone Encounter - Ginna Strickland RN - 11/27/2022 9:05 AM EDT Patient calls for appointment with Dr. Coronado for blood in semen. Nurse triage completed. Protocol recommends see provider within [address] Coronado. Referral placed. Appt. Scheduled. Reason for Disposition [...] urinary symptoms. Protocols used: Penis and Scrotum [id number] documented in this encounterRegional [facility] Center07-18-2023 History of Present illness Narrative* Bharat Coronado MD - 10/29/2022 3:00 PM EDT Chief Complaint Patient presents with: Wellness HPI Bharat Finch is a 57 year old male who presents here today for a follow up to renew his medications. Pt here today a medication follow up. Has not been seen in a year. Still working at [employer]. GI/Uro - No bowel, stomach or urinary issues. Declines any FHx of colon cancer. Declines wanting a colonoscopy at this time. Hypogonadism: Seems to be doing well on Androgel 1 packet daily. Has been out of the medication forthe last couple of weeks. HTN: Does not check his BP at home lately. Denies any chest pains, dizziness, or SOB. Had a pacemaker placed in April. Follows with Cardiology every 6 months and has routine pacemaker checks. Pt oncurrent regimen of Lisinopril 10 mg once daily, [...] back and neck pain. He's currently taking Tizanidine4 mg at bedtime and [place] 5-325 mg 1 tab po bid prn, not daily per patient. Cold symptoms that started on that started improving by Friday/Friday. He still has somenasal congestion and cough that generally lingers. 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 Family History No family history on [...] 64 Resp 18 Ht 177.8 cm (5' 10) Wt 109.7 kg (241 lb 12.8 oz) BMI 34.69 kg/m General Appearance: Well appearing, alert, in no acute distress, well-hydrated, well nourished. andObese. Lungs: Lungs clear to auscultation. No wheezing, [...] medication regimen. 6. Coronary artery disease involving rampart heart, unspecified vessel or lesion type, unspecified [...] Past Histories independently gathered by the clinical senior support analyst and the remaining scribed note accurately describes my personal service to the patient. Medical Decision Making: Problems: Moderate: 2+ stable chronic illnesses Data: Unique test(s) ordered: 1 Risk: Moderate: Drug management Medical Decision Making Level: 4 - Moderate Bharat Coronado MD The documentation for this note was completed by Tc Evans Ma acting as scribe for Bharat Coronado MD. October 29, 2022 3:17 PM. Tc Evans Ma documented in this encounterRegional [facility] Center12-09-2022 Miscellaneous Notes* Telephone Encounter - Bharat Coronado MD - 03/22/2022 3:39 PM EST OK to refill as ordered Bharat Coronado MD * Telephone Encounter - Kathe King - 03/22/2022 11:56 AM EST Patient has been identified by name and [...] and advise. Kathe King documented in this encounterRegional Medical Center08-15-2022 Miscellaneous Notes* Telephone Encounter - Bharat Coronado MD - 11/26/2021 3:07 PM EDT Noted; ordered by Cardiology No action needed Bharat Coronado MD * Telephone Encounter - Tc Evans Ma - 11/26/2021 1:35 PM EDT External Labs. View External Lab - Miscellaneous Lab [ID [id number]] View External Lab - Miscellaneous Lab [ID [id number]] documented in this encounterRegional Medical Center07-22-2022 Miscellaneous Notes* Telephone Encounter - Michelle Shepherd Ma - 11/02/2021 11:52 AM EDT The following approved medication requests have been transmitted electronically. Signed Prescriptions Disp Refills testosterone (ANDROGEL) 50 mg / 5 g (1%) 30 Packet 2 Sig: Apply 1 Packet as directed once daily for 90 days. SARA Class: C-III ROB: No Authorizing Provider: BHARAT CORONADO Ma * Telephone Encounter - Bharat Coronado MD - 11/02/2021 10:56 AM EDT OK to refill as ordered Bharat Coronado MD * Telephone Encounter - Wandy Jovel [facility] - 11/02/2021 9:43 AM EDT Patient has been identified by name and [...] to pharmacy. No need to notify patient. Wandyfadia Jovel Pss documented in this encounterRegional Medical Center10-23-2021 Hospital Discharge instructions Follow Up Care 02/03/2021 16:12:50 With:Field Appraiser follow up Address: When: Unknown Comments:Honorio Zuluaga, Nurse Field Appraiser, will call you and/or your family after your release from the hospital. Office Hours: Friday thru Friday 8am - 430pmPhone: Optgd: [email or web address] With:SHAHRIAR DEGROOT MD Address: [phone] When:1-2 days Comments:GI physician. Referral was sent to Dr. Degroot or one of his partners for evaluation of esophageal thickening. They should be calling you with a follow up appointment. If you do not hear from them in 1week, please call their office. With:[facility] Address: When: Unknown Comments:This is your home healthcare provider. Please call if you have questions related to home healthcare. With:ANGELA ABEBE MD Address: [address] [place] [address]- When:02/15/2021 15:55:00 Comments:Please arrive 15 minutes early and wear a mask. Bring your photo ID and insurance card and a any bottles of medications . Bring with you the discharge paperwork from hospital With:HASEEB ROJAS, BJ Heller, Neurosurgery, Neurosurgery Address: [address] [address] [phone] When:02/20/2021 10:45:00 [facility] 08-21-2009 Evaluation note* Diagnosis Onset Date Resolution Status New onset atrial fibrillation acute Essential hypertension chron ic HLD (hyperlipidemia) chronic H/O coronary artery bypass surgery December 02, 2008 resolved History of coronary artery stent placement October 26, 2018 resolved [facility] Work Phone: 1(489) 250-277408-21-2009 Evaluation note* Diagnosis Onset Date Resolution Status New onset atrial fibrillation acute Essential hypertension chron ic HLD (hyperlipidemia) chronic H/O coronary artery bypass surgery December 02, 2008 resolved History of coronary artery stent placement October 26, 2018 resolved Acute on chronic heart failu re with preserved ejection fraction (HFpEF) acute Atrial fibrillation with rap id ventricular response acute CHF (congestive heart failure) acute Dyspnea acute New onset atrial fibrillation acute 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 Essential hypertension chron ic HLD (hyperlipidemia) chronic H/O coronary artery bypass surgery December 02, 2008 resolved History of coronary artery stent placement October 26, 2018 resolved [facility] Work Phone: 1(377) 344-607208-21-2009 Evaluation note* Diagnosis Onset Date Resolution Status New onset atrial fibrillation acute Essential hypertension chron ic HLD (hyperlipidemia) chronic H/O coronary artery bypass surgery December 02, 2008 resolved History of coronary artery stent placement October 26, 2018 resolved Acute on chronic heart failu re with preserved ejection fraction (HFpEF) acute New onset atrial fibrillation acute [facility] Work Phone: [phone]) 400-672708-21-2009 Evaluation note* Diagnosis Onset Date Resolution Status Essential hypertension chron ic HLD (hyperlipidemia) chronic New onset atrial fibrillation chronic H/O coronary artery bypass surgery December 02, 2008 resolved History of coronary artery stent placement October 26, 2018 resolved Bradycardia acute Essential hypertension chron ic HLD (hyperlipidemia) chronic New onset atrial fibrillation chronic H/O coronary artery bypass surgery December 02, 2008 resolved History of coronary artery stent placement October 26, 2018 resolved Bradycardia acute Essential hypertension chron ic HLD (hyperlipidemia) chronic New onset atrial fibrillation chronic H/O coronary artery bypass surgery December 02, 2008 resolved History of coronary artery stent placement October 26, 2018 resolved PAF (paroxysmal atrial fibrillation) acute Sick sinus syndrome acute Tachy-bradley syndrome acute 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 Essential hypertension chron ic HLD (hyperlipidemia) chronic [facility] Work Phone: [phone]) 216-447908-21-2009 Evaluation note* Diagnosis Onset Date Resolution Status Essential hypertension chron ic HLD (hyperlipidemia) chronic New onset atrial fibrillation chronic H/O coronary artery bypass surgery December 02, 2008 resolved History of coronary artery stent placement October 26, 2018 resolved Bradycardia acute Essential hypertension chron ic HLD (hyperlipidemia) chronic New onset atrial fibrillation chronic H/O coronary artery bypass surgery December 02, 2008 resolved History of coronary artery stent placement October 26, 2018 resolved Bradycardia acute Essential hypertension chron ic HLD (hyperlipidemia) chronic New onset atrial fibrillation chronic H/O coronary artery bypass surgery December 02, 2008 resolved History of coronary artery stent placement October 26, 2018 resolved PAF (paroxysmal atrial fibrillation) acute Sick sinus syndrome acute Tachy-bradley syndrome acute 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 Essential hypertension chron ic HLD (hyperlipidemia) chronic Pacemaker acute [facility] Work Phone: 1([phone]) 590-338108-21-2009 Evaluation note* Diagnosis Onset Date Resolution Status Bradycardia acute Essential hypertension chron ic HLD (hyperlipidemia) chronic New onset atrial fibrillation chronic H/O coronary artery bypass surgery December 02, 2008 resolved History of coronary artery stent placement October 26, 2018 resolved PAF (paroxysmal atrial fibrillation) acute Sick sinus syndrome acute Tachy-bradley syndrome acute 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 Essential hypertension chron ic HLD (hyperlipidemia) chronic Pacemaker acute Pacemaker acute PAF (paroxysmal atrial fibrillation) acute Sick sinus syndrome acute Tachy-bradley syndrome acute Pacemaker acute PAF (paroxysmal atrial fibrillation) acute Sick sinus syndrome acute Tachy-bradley syndrome acute PAF (paroxysmal atrial fibrillation) acute Sick sinus syndrome acute Tachy-bradley syndrome acute 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 Enriquez [facility] May 11, 2022 11:37am Note Date/Time May 11, 2022 1 1:37am [facility] Medical Records Department [address] [place] [address] Instructions for Home/Discharge Instructions 05/11/22 1136 MR#: [id number] Acct: [id number] Name: BHARAT FINCH Rep #:[id number] : 1965 56 From: Mina Enriquez MD PCP: Dr. Bharat Coronado MD Status:AD M YISSEL Discharge Instructions Diet Discharge Diet: No restrictions Activity Discharge Activity: May Not Drive Additional Activity Instructions:: May shower or bathe on [day 3]. Do not scrub the incision or soak in the tub. Just wash with soap and let the water run over the incision. Gently pat dry with towel. Medications: Take your pain medication as directed. Refer to your discharge instruction sheet for a list of medications you are to take. Dressing / Incision Call your doctor if your incision/area has: Continuous Slow Oozing, Sudden Increased Bleeding, Increased Pain/ Swelling, Increased Redness, Foul Smelling Discharge and Swelling at the incision site Call your doctor if you observe: Fever of 101 or Higher, Shortness of breath, Dizziness, Fainting spells, Swelling in the ankles, Chest pain, Prolonged hiccupping and Increased palpitations (irregular heartbeat) Suture Line Care: Avoid Pulling/Pushing and Avoid Pinching/Bending Remove Dressing in: 3 days Cleanse incision/area with: Keep Dressing Clean & Dry Additional Dressing/Incision Instructions:: When dressing is removed, wash and dry incision. Keep covered with a light bandage if it is rubbing against your clothing. Do not cover the incision with an airtight bandage. Change the bandagedaily. Do not remove steri strips. The strips will fall off on their own. Follow Up Care Please Follow Up With: Mina Enriquez MD When: Pacer follow up on May at 1 PM Test Results: Test results from this visit will be discussed in further detail at your follow- up appointment, if applicable. Discharge Plan Admission Admit Date/Time: 05/10/22 15:15 Attending Provider: Mina Enriquez Primary Care Provider: Bharat Coronado Discharge Orders/Prescriptions Prescriptions: Held Eliquis 5 mg tablet 5 mg PO BID Hold Instructions: Resume on 05/18/22. No Action aspirin [Adult Low Dose Aspirin] 81 mg tablet,delayed release (DR/EC) 81 mg PO QDAY hydrocodone-acetaminophen 5-325 mg tablet 0.5 tab PO DAILY PRN (Reason: Pain) furosemide [Lasix] 40 mg tablet 40 mg PO DAILY Qty: 180 3RF dronedarone 400 mg tablet 400 mg PO BID Qty: 60 11RF Rx Instructions: must administer with a meal/food lisinopril 10 mg tablet 10 mg PO DAILY Qty: 30 11RF spironolactone 25 mg tablet 25 mg PO DAILY Hold Instructions: low bp simvastatin 40 mg tablet 40 mg PO QPM Referrals / Follow Up: Bharat Coronado MD [Primary Care Provider] - Disposition Disposition (needs filled in before D/C Order can be placed): Home, Self Care 05/11/22 1137<Electronically signed by Mina Enriquez MD>Mina Enriquez MD CC: Dr. Bharat Coronado MD ~ Signed [facility] Work Phone: Evaluation + Plan note Future Appointments Appointment Date:02/20/2021 10:45:00 AM Scheduled Provider:BJ MEMBRENO MD Location:NEUROS Appointment Type:NS Post Op [facility] Evaluation + Plan note Future Appointments Appointment Date:05/24/2021 09:30:00 AM Scheduled Provider: Location:XRAY Appointment Type:CT Spine Cervical w/o Contrast Appointment Date:05/24/2021 10:15:00 AM Scheduled Provider:BJ MEMBRENO MD Location:NEUROS Appointment Type:NS OV Future Scheduled Tests Radiology* CT Spine Cervical w/o Contrast 05/24/21 [facility] Evaluation note* Diagnosis Hypogonadism in male [facility] encounter [facility]* Diagnosis Onset Date Resolution Status Acute on chronic heart failu re with preserved ejection fraction (HFpEF) acute 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 Essential hypertension chron ic HLD (hyperlipidemia) chronic New onset atrial fibrillation chronic Atrial fibrillation with rap id ventricular response resolved Dyspnea resolved H/O coronary artery bypass surgery December 02, 2008 resolved History of coronary artery stent placement October 26, 2018 resolved Essential hypertension chron ic HLD (hyperlipidemia) chronic New onset atrial fibrillation chronic H/O coronary artery bypass surgery December 02, 2008 resolved History of coronary artery stent placement October 26, 2018 resolved Essential hypertension chron ic HLD (hyperlipidemia) chronic New onset atrial fibrillation chronic H/O coronary artery bypass surgery December 02, 2008 resolved History of coronary artery stent placement October 26, 2018 resolved Bradycardia acute Essential hypertension chron ic HLD (hyperlipidemia) chronic New onset atrial fibrillation chronic H/O coronary artery bypass surgery December 02, 2008 resolved History of coronary artery stent placement October 26, 2018 resolved [facility] Work Phone: Evaluation note* Diagnosis Wellness examination- Primary Hypogonadism in male Lower leg edema Edema Sick sinus syndrome (HCC) Sinoatrial node dysfunction Atrial fibrillation, unspecified type (HCC) Coronary artery disease involving rampart heart, unspecified vessel or lesion type, unspecified whether angina present Cough, unspecified type [facility] Diagnosis Blood in semen- Primary Hematospermia Coronary artery disease involving rampart heart, unspecified vessel or lesion type, unspecified whether angina present Hypogonadism in male [facility]* Diagnosis Recurrent UTI (urinary tract infection)- Primary Urinary tract infection, site not specified Urinary tract infection with hematuria, site unspecified documented in this encounter [facility] note* Diagnosis Blood in semen- Primary Hematospermia Recurrent UTI (urinary tract infection) Urinary tract infection, site not specified documented in this encounter [facility] note* Diagnosis Onset Date Resolution Status Nonsustained paroxysmal ventricular tachycardia acute Pacemaker acute PAF (paroxysmal atrial fibrillation) acute Sick sinus syndrome acute Tachy-bradley syndrome acute Bradycardia acute Nonsustained paroxysmal ventricular tachycardia acute Pacemaker acute PAF (paroxysmal atrial fibrillation) acute Sick sinus syndrome acute Tachy-bradley syndrome acute [facility] Work Phone: Evaluation note* Diagnosis Gross hematuria- Primary [facility]* Diagnosis Kidney stone- Primary Calculus of kidney [facility]* Diagnosis Hypogonadism in male Renal calculus, right Calculus of kidney [facility]* Diagnosis Preop examination Preoperative examination, unspecified Renal calculus, right Calculus of kidney Presence of cardiac pacemaker Cardiac pacemaker in situ ALICIA treated with BiPAP Essential (primary) hypertension Unspecified essential hypertension Atrial fibrillation, unspecified type (HCC) Chronic congestive heart failure, unspecified heart failure type (HCC) Coronary artery disease involving coronary bypass graft of rampart heart, unspecified whether angina present Mixed hyperlipidemia History of coronary artery bypass surgery Postsurgical aortocoronary bypass status Renal calculus, right Calculus of kidney [facility]* Diagnosis Kidney stone- Primary Calculus of kidney documented in this encounter [facility] noteNo assessment information availableWPremier Health [facility] Work Phone: Evaluation note* Diagnosis Onset Date Resolution Status Atrial fibrillation acute PAF (paroxysmal atrial fibrillation) acute 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 Dyspnea on exertion chronic Essential hypertension chron ic HLD (hyperlipidemia) chronic [facility] Work Phone: Evaluation note* Diagnosis Influenza-like illness- Primary Influenza with other respiratory manifestations Acute non-recurrent sinusitis, unspecified location [facility] encounter [facility] Diagnosis Onset Date Resolution Status Atrial fibrillation acute PAF (paroxysmal atrial fibrillation) acute 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 Dyspnea on exertion chronic Essential hypertension chron ic HLD (hyperlipidemia) chronic Acute on chronic heart failu re with preserved ejection fraction (HFpEF) acute Atrial fibrillation with RVR acute ALICIA treated with BiPAP acute Pacemaker acute Sick sinus syndrome acute 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 Essential hypertension chron ic HLD (hyperlipidemia) chronic [facility] Work Phone: Evaluation note* Diagnosis Sinobronchitis- Primary Unspecified sinusitis (chronic) Acute cough Sinobronchitis Unspecified sinusitis (chronic) [facility] encounter [facility]* Diagnosis Bacterial pneumonia Bacterial pneumonia, unspecified Acute cough [facility] Diagnosis Bacterial pneumonia- Primary Bacterial pneumonia, unspecified Acute cough [facility] Diagnosis Onset Date Resolution Status Atrial fibrillation acute PAF (paroxysmal atrial fibrillation) acute 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 Dyspnea on exertion chronic Essential hypertension chron ic HLD (hyperlipidemia) chronic ALICIA treated with BiPAP acute Pacemaker acute Sick sinus syndrome acute 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 Essential hypertension chron ic HLD (hyperlipidemia) chronic Acute on chronic heart failu re with preserved ejection fraction (HFpEF) resolved Atrial fibrillation with RVR resolved [facility] Work Phone: Evaluation note* Diagnosis Community acquired pneumonia, unspecified laterality- Primary [facility]* Diagnosis Bacterial pneumonia- Primary Bacterial pneumonia, unspecified [facility] Diagnosis Onset Date Resolution Status Atrial fibrillation acute PAF (paroxysmal atrial fibrillation) acute 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 Dyspnea on exertion chronic Essential hypertension chron ic HLD (hyperlipidemia) chronic ALICIA treated with BiPAP acute Pacemaker acute Sick sinus syndrome acute 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 Essential hypertension chron ic HLD (hyperlipidemia) chronic Acute on chronic heart failu re with preserved ejection fraction (HFpEF) resolved Atrial fibrillation with RVR resolved Pacemaker acute PAF (paroxysmal atrial fibrillation) acute 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 Dyspnea on exertion chronic Essential hypertension chron ic HLD (hyperlipidemia) chronic [facility] Work Phone: Evaluation note* Diagnosis Tachy-bradley syndrome (HCC)- Primary Sinoatrial node dysfunction Bradycardia Other specified cardiac dysrhythmias Persistent atrial fibrillation (HCC) Atrial fibrillation Atrial fibrillation with rapid ventricular response (HCC) Atrial fibrillation Presence of cardiac pacemaker Cardiac pacemaker in situ 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 Nonsustained paroxysmal ventricular tachycardia (HCC) Palpitations Atherosclerosis of rampart coronary artery of rampart heart without angina pectoris History of coronary artery bypass surgery Postsurgical aortocoronary bypass status History of coronary artery stent placement Postsurgical percutaneous transluminal coronary angioplasty status 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) Unspecified hypertensive heart disease with heart failure ALICIA treated with BiPAP Dyspnea on exertion Other dyspnea and respiratory abnormality At risk for stroke Other specified personal history presenting hazards to health 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 Long-term (current) use of anticoagulants Obesity, Class II, BMI 35-39.9 Obesity, unspecified [facility] Diagnosis Hypogonadism in male [facility] Diagnosis Persistent atrial fibrillation (HCC)- Primary Atrial fibrillation Dyspnea, unspecified type [facility]* Diagnosis Preop examination Preoperative examination, unspecified Renal calculus, right Calculus of kidney Presence of cardiac pacemaker Cardiac pacemaker in situ ALICIA treated with BiPAP Essential (primary) hypertension Unspecified essential hypertension Atrial fibrillation, unspecified type (HCC) Chronic congestive heart failure, unspecified heart failure type (HCC) Coronary artery disease involving coronary bypass graft of rampart heart, unspecified whether angina present Mixed hyperlipidemia History of coronary artery bypass surgery Postsurgical aortocoronary bypass status Sinobronchitis Unspecified sinusitis (chronic) [facility] Preop examination Preoperative examination, unspecified Renal calculus, right Calculus of kidney Presence of cardiac pacemaker Cardiac pacemaker in situ ALICIA treated with BiPAP Essential (primary) hypertension Unspecified essential hypertension Atrial fibrillation, unspecified type (HCC) Chronic congestive heart failure, unspecified heart failure type (HCC) Coronary artery disease involving coronary bypass graft of rampart heart, unspecified whether angina present Mixed hyperlipidemia History of coronary artery bypass surgery Postsurgical aortocoronary bypass status Kidney stone Calculus of kidney documented in this encounter [facility] note* Diagnosis Preop examination Preoperative examination, unspecified Renal calculus, right Calculus of kidney Presence of cardiac pacemaker Cardiac pacemaker in situ ALICIA treated with BiPAP Essential (primary) hypertension Unspecified essential hypertension Atrial fibrillation, unspecified type (HCC) Chronic congestive heart failure, unspecified heart failure type (HCC) Coronary artery disease involving coronary bypass graft of rampart heart, unspecified whether angina present Mixed hyperlipidemia History of coronary artery bypass surgery Postsurgical aortocoronary bypass status Hypogonadism in male documented in this encounter [facility] note* Diagnosis Preop examination Preoperative examination, unspecified Renal calculus, right Calculus of kidney Presence of cardiac pacemaker Cardiac pacemaker in situ ALICIA treated with BiPAP Essential (primary) hypertension Unspecified essential hypertension Atrial fibrillation, unspecified type (HCC) Chronic congestive heart failure, unspecified heart failure type (HCC) Coronary artery disease involving coronary bypass graft of rampart heart, unspecified whether angina present Mixed hyperlipidemia History of coronary artery bypass surgery Postsurgical aortocoronary bypass status Hypogonadism in male- Primary Atrial fibrillation, unspecified type (HCC) Essential (primary) hypertension Unspecified essential hypertension Screening for colon cancer Special screening for malignant neoplasms, colon documented in this encounter [facility] note* Diagnosis Preop examination Preoperative examination, unspecified Renal calculus, right Calculus of kidney Presence of cardiac pacemaker Cardiac pacemaker in situ ALICIA treated with BiPAP Essential (primary) hypertension Unspecified essential hypertension Atrial fibrillation, unspecified type (HCC) Chronic congestive heart failure, unspecified heart failure type (HCC) Coronary artery disease involving coronary bypass graft of rampart heart, unspecified whether angina present Mixed hyperlipidemia History of coronary artery bypass surgery Postsurgical aortocoronary bypass status Persistent atrial fibrillation (HCC)- Primary Atrial fibrillation Status post catheter ablation of atrial fibrillation Bradycardia Other specified cardiac dysrhythmias Palpitations Tachy-bradley syndrome (HCC) Sinoatrial node dysfunction Encounter for care of pacemaker prison (current) use of anticoagulants Long-term (current) use of anticoagulants At risk for stroke Other specified personal history presenting hazards to health documented in this encounter [facility] note* Diagnosis Preop examination Preoperative examination, unspecified Renal calculus, right Calculus of kidney Presence of cardiac pacemaker Cardiac pacemaker in situ ALICIA treated with BiPAP Essential (primary) hypertension Unspecified essential hypertension Atrial fibrillation, unspecified type (HCC) Chronic congestive heart failure, unspecified heart failure type (HCC) Coronary artery disease involving coronary bypass graft of rampart heart, unspecified whether angina present Mixed hyperlipidemia History of coronary artery bypass surgery Postsurgical aortocoronary bypass status Bacterial sinusitis- Primary Unspecified sinusitis (chronic) [facility] Diagnosis Preop examination Preoperative examination, unspecified Renal calculus, right Calculus of kidney Presence of cardiac pacemaker Cardiac pacemaker in situ ALICIA treated with BiPAP Essential (primary) hypertension Unspecified essential hypertension Atrial fibrillation, unspecified type (HCC) Chronic congestive heart failure, unspecified heart failure type (HCC) Coronary artery disease involving coronary bypass graft of rampart heart, unspecified whether angina present Mixed hyperlipidemia History of coronary artery bypass surgery Postsurgical aortocoronary bypass status Persistent atrial fibrillation (HCC)- Primary Atrial fibrillation Presence of cardiac pacemaker Cardiac pacemaker in situ Palpitations History of coronary artery bypass surgery Postsurgical aortocoronary bypass status Essential (primary) hypertension Unspecified essential hypertension Chronic congestive heart failure, unspecified heart failure type (HCC) At risk for stroke Other specified personal history presenting hazards to health Obesity, Class II, BMI 35-39.9 Obesity, unspecified Swelling of lower extremity [facility] Diagnosis Preop examination Preoperative examination, unspecified Renal calculus, right Calculus of kidney Presence of cardiac pacemaker Cardiac pacemaker in situ ALICIA treated with BiPAP Essential (primary) hypertension Unspecified essential hypertension Atrial fibrillation, unspecified type (HCC) Chronic congestive heart failure, unspecified heart failure type (HCC) Coronary artery disease involving coronary bypass graft of rampart heart, unspecified whether angina present Mixed hyperlipidemia History of coronary artery bypass surgery Postsurgical aortocoronary bypass status Hypogonadism in male [facility] Diagnosis Preop examination Preoperative examination, unspecified Renal calculus, right Calculus of kidney Presence of cardiac pacemaker Cardiac pacemaker in situ ALICIA treated with BiPAP Essential (primary) hypertension Unspecified essential hypertension Atrial fibrillation, unspecified type (HCC) Chronic congestive heart failure, unspecified heart failure type (HCC) Coronary artery disease involving coronary bypass graft of rampart heart, unspecified whether angina present Mixed hyperlipidemia History of coronary artery bypass surgery Postsurgical aortocoronary bypass status Hypogonadism in male- Primary documented in this encounter [facility] note* Diagnosis Preop examination Preoperative examination, unspecified Renal calculus, right Calculus of kidney Presence of cardiac pacemaker Cardiac pacemaker in situ ALICIA treated with BiPAP Essential (primary) hypertension Unspecified essential hypertension Atrial fibrillation, unspecified type (HCC) Chronic congestive heart failure, unspecified heart failure type (HCC) Coronary artery disease involving coronary bypass graft of rampart heart, unspecified whether angina present Mixed hyperlipidemia History of coronary artery bypass surgery Postsurgical aortocoronary bypass status Hypogonadism in male documented in this encounter [facility] note* Diagnosis Preop examination Preoperative examination, unspecified Renal calculus, right Calculus of kidney Presence of cardiac pacemaker Cardiac pacemaker in situ ALICIA treated with BiPAP Essential (primary) hypertension Unspecified essential hypertension Atrial fibrillation, unspecified type (HCC) Chronic congestive heart failure, unspecified heart failure type (HCC) Coronary artery disease involving coronary bypass graft of rampart heart, unspecified whether angina present Mixed hyperlipidemia History of coronary artery bypass surgery Postsurgical aortocoronary bypass status Hypogonadism in male- Primary documented in this encounter [facility] note* Diagnosis Preop examination Preoperative examination, unspecified Renal calculus, right Calculus of kidney Presence of cardiac pacemaker Cardiac pacemaker in situ ALICIA treated with BiPAP Essential (primary) hypertension Unspecified essential hypertension Atrial fibrillation, unspecified type (HCC) Chronic congestive heart failure, unspecified heart failure type (HCC) Coronary artery disease involving coronary bypass graft of rampart heart, unspecified whether angina present Mixed hyperlipidemia History of coronary artery bypass surgery Postsurgical aortocoronary bypass status Persistent atrial fibrillation (HCC)- Primary Atrial fibrillation Dyspnea, unspecified type documented in this encounter [facility] note* Diagnosis Preop examination Preoperative examination, unspecified Renal calculus, right Calculus of kidney Presence of cardiac pacemaker Cardiac pacemaker in situ ALICIA treated with BiPAP Essential (primary) hypertension Unspecified essential hypertension Atrial fibrillation, unspecified type (HCC) Chronic congestive heart failure, unspecified heart failure type (HCC) Coronary artery disease involving coronary bypass graft of rampart heart, unspecified whether angina present Mixed hyperlipidemia History of coronary artery bypass surgery Postsurgical aortocoronary bypass status Type 2 diabetes mellitus without complication, without long-term current use of insulin (HCC)- Primary Hypogonadism in male [facility] Narr[facility] No data available for this section [facility] Discharge instructions No data available for this section [facility] Discharge instructionsAmbulatory Orders* Phase II, Outpatient Cardiac Rehab Location: None Selected [facility] Work Phone: Hospital Discharge instructions Additional Instructions Follow-up with Dr. Enriquez and [facility] for any worsening [facility] Work Phone: Hospital Discharge instructions Additional Instructions You were cardioverted 200 J synchronized back to sinus rhythm. Continue your Eliquis. Discussed with Dr. Enriquez. Increase your metoprolol 100 mg twice a day next dose this evening. Stop your lisinopril 5 mg at this time. Follow-up in the office. If recurrent symptoms, return to the ED for reevaluation. Stable creatinine at 1.4.[facility] Work Phone: Hospital Discharge instructions Additional Instructions Follow-up with cardiology. Call to make an appointment. Return back to the ED if symptoms change or worsen.[facility] Work Phone: Progress note Author Dr. Enriquez [facility] May 11, 2022 11:35am Note Date/Time May 11, 2022 1 1:35am [facility] Medical Records Department [address] [place] [address] Progress Note - Cardiology 05/11/22 1133 MR#: [id number] Acct: [id number] Name: BHARAT FINCH Rep #:[id number] : 1965 56 From: Mina Enriquez MD PCP: Dr. Bharat Coronado MD Status:AD M YISSEL Location: [place] [address] Subjective Subjective Patient evaluate. Objective Data Vital Signs: Vital Signs Temp Pulse Resp BP Pulse Ox O2 Del Method 98.0 F 60 16 141/75 H 98 Room Air 05/11/22 09:05 05/11/22 09:05 05/11/22 09:05 05/11/22 09:05 05/11/22 09:05 05/11/22 09:05 Oxygen Delivery Method Room Air Weight: 242 lb 15.19 oz Body Mass Index (BMI) 35.9 Intake & Output: Intake and Output for Last 24 Hours 05/09/22 05/10/22 05/11/22 23:59 23:59 23:59 Intake Total 760 / 760 240 / 240 Output Total 500 / 500 Balance 760 / 760 -260 / -260 Cardiology Labs/Tests Rhythm: EKG: ECHO: Stress Test: Cardiac Cath: PCI: CT Surgery: Holter monitor: EPS: PPM: CXR: Chest CT Scan: Radiography Diagnostic Testing: Radiology Impression Chest X-Ray 05/11/22 05:55 IMPRESSION: Mild central pulmonary vascular congestion. Electronically Signed: Bharat Jarrell MD at 4:59 EST , Assessment & Plan Assessment/Plan (1) Pacemaker: PLAN: Status post pacemaker implantation. Pacemaker interrogation demonstrates normal function. Chest x-ray demonstrates adequate position. Will discharge for outpatient follow-up. 05/11/22 1135 <Electronically signed by Mina Enriquez MD> Cosigner Signature (if applicable): CC: ~ Signed [facility] Work Phone: Reason for referral (narrative)* Diagnostic Procedure Only (Routine) - Closed Specialty Diagnoses / Procedures Referred By Contac t Referred To Contact XR IMAGING Diagnoses Kidney stone Procedures XR ABDOMEN 1V SUPINE RADIOLOGIC EXAM ABDOMEN 1 VIEW Vinny Davis Jr., MD [address] [place] [address] [place] [address] Referral ID Status Reason Start Date Expiration Date V isits Requested Visits Authorized [id number] Closed Auto-Generate d Referral 03/10/2023 04/08/2024 1 1 [facility] for referral (narrative)* Outpatient Procedure (Routine) - Pending Review Specialty Diagnoses / Procedures Referred By Contac Referred To [facility] Diagnoses Preop examination Presence of cardiac pacemaker Atrial fibrillation, unspecified type (HCC) Procedures ECG COMPLETE ECG ROUTINE ECG W/LEAST 12 LDS W/I&R Derick Larsen APRN.CNP [address] [place] [address] [facility] [address] [place] [address] Referral ID Status Reason Start Date Expiration Date Visits Requested Visits Authorized [id number] Pending Review Auto-Generat ed Referral 03/18/2023 03/17/2024 1 1 [facility] for referral (narrative)* Diagnostic Procedure Only (Routine) - Pending Review Specialty Diagnoses / Procedures Referred By Contac t Referred To Contact XR IMAGING Diagnoses Kidney stone Procedures XR ABDOMEN 1V SUPINE RADIOLOGIC EXAM ABDOMEN 1 VIEW Vinny Davis Jr., MD [address] [place] [address] [place] [address] Referral ID Status Reason Start Date Expiration Date Visits Requested Visits Authorized [id number] Pending Review Auto-Generat ed Referral 3 04/22/2024 1 1 [facility] for referral (narrative)* Outpatient Procedure (Routine) - New Request Specialty Diagnoses / Procedures Referred By Contac t Referred To [facility] Diagnoses Persistent atrial fibrillation (HCC) Dyspnea, unspecified type Procedures ECHO ECHO TTHRC R-T 2D W/WOM-MODE COMPL SPEC&COLR D Radha Hughes MD [address] [facility] [address] [place] [address] [facility] [address] [place] [address] Referral ID Status Reason Start Date Expiration Date Visits Requested Visits Authorized [id number] New Request Auto-Generat ed Referral 4 11/27/2024 1 1 [facility] for referral (narrative)* Diagnostic Procedure Only (Routine) - Closed Specialty Diagnoses / Procedures Referred By Contac t Referred To Contact XR IMAGING Diagnoses Kidney stone Procedures XR ABDOMEN 1V SUPINE RADIOLOGIC EXAM ABDOMEN 1 VIEW Vinny Davis Jr., MD [address] [place] [address] [place] [address] Referral ID Status Reason Start Date Expiration Date V isits Requested Visits Authorized [id number] Closed Auto-Generate d Referral 03/24/2023 04/22/2024 1 1 [facility] for referral (narrative)No reason for referral [facility] Work Phone: [facility] for visit Narrative* Diagnostic Procedure Only (Routine) - Closed Specialty Diagnoses / Procedures Referred By Contac t Referred To Contact XR IMAGING Diagnoses Kidney stone Procedures XR ABDOMEN 1V SUPINE RADIOLOGIC EXAM ABDOMEN 1 VIEW Vinny Davis Jr., MD [address] [place] [address] [place] [address] Referral ID Status Reason Start Date Expiration Date V isits Requested Visits Authorized [id number] Closed Auto-Generate d Referral 03/24/2023 04/22/2024 1 1 [facility] Family History No Family History Records Found Relationship Condition Age at Onset Recorded Date/T [place] father Coronary artery disease Unknown Diabetes mellitus Unknown Malignant neoplasm Unknown mother Diabetes mellitus Unknown brother Unknown Advance Directives No Advanced Directives Records Found Advance Directive Response Recorded Date/ Time Advance Directives No October 26 7:25am Living Will No October 26, 2018 7:25am Power of Manager Managing No October 26 9 7:25am Advance Directive Response Recorded Date/ Time Advance Directives No October 26 7:25am Living Will No December 10 2 3:19pm Power of Manager Managing No December 10 2 022 3:19pm Advance Directive Response Recorded Date/ Time Advance Directives No October 26 6:25am Living Will No December 10 2 2:19pm Power of Manager Managing No December 10 2 022 2:19pm Advance Directive Response Recorded Date/ Time Advance Directives No May 10, 2022 10:46am Living Will No May 10 2:58pm Power of Manager Managing No May 10, 2022 2:58pm Advance Directive Response Recorded Date/ Time Advance Directives No May 10, 2022 11:46am Living Will No May 10 3:58pm Power of Manager Managing No May 10, 2022 3:58pm Advance Directive Response Recorded Date/ Time Advance Directives No May 10, 2022 11:46am Living Will No July 30, 2023 6:02pm Power of Manager Managing No July 29 6:02pm Advance Directive Response Recorded Date/ Time Advance Directives No August 19, 2023 7:52am Living Will No August 19, 2023 7: 52am Power of Manager Managing No August 19, 2023 7:52am Date Activated Date Inactivated Comments 01/26/2024 6:08 PM 01/28/2024 7:56 PM Question Answer Comments Full Code Order Discussed With: Patient Date Activated Date Inactivated Comments 01/26/2024 6:08 PM 01/28/2024 7:56 PM Question Answer Comments Full Code Order Discussed With: Patient Advance Directive Response Recorded Date/ Time Living Will No January 25 9:29am Do you have a Healthcare Power of Manager Managing? No January 26, 2024 9:29am Living Will No July 04, 2024 11:35am Do you have a Healthcare Power of Manager Managing? No July 04, 2024 11:35am Living Will No March 30 10:28am Do you have a Healthcare Power of Manager Managing? No March 30, 2024 10:28am Living Will No May 10 1:22pm Do you have a Healthcare Power of Manager Managing? No May 10, 2024 1:22pm Advance Directives No October 21 11:49am Advance Directive Response Recorded Date/ Time Living Will No January 25 9:29am Do you have a Healthcare Power of Manager Managing? No January 26, 2024 9:29am Living Will No July 04, 2024 11:35am Do you have a Healthcare Power of Manager Managing? No July 04, 2024 11:35am Living Will No March 30, 024 10:28am Do you have a Healthcare Power of Manager Managing? No March 30, 2024 10:28am Living Will No May 10 1:22pm Do you have a Healthcare Power of Manager Managing? No May 10, 2024 1:22pm Living Will No July 15, 2024 8:45am Do you have a Healthcare Power of Manager Managing? No July 15, 2024 8:45am Advance Directives No October 21 11:49am Advance Directive Response Recorded Date/ Time Living Will No January 25 9:29am Do you have a Healthcare Power of Manager Managing? No January 26, 2024 9:29am Living Will No July 04, 2024 11:35am Do you have a Healthcare Power of Manager Managing? No July 04, 2024 11:35am Living Will No July 15, 2024 8:45am Do you have a Healthcare Power of Manager Managing? No July 15, 2024 8:45am Living Will No August 16, 2024 7: 30am Do you have a Healthcare Power of Manager Managing? No August 16, 2024 7:30am Advance Directives No August 16, 2024 7:30am Do you have a Healthcare Power of Manager Managing? No September 20, 2024 1:37pm Advance Directive Response Recorded Date/ Time Living Will No August 16, 2024 7: 30am Do you have a Healthcare Power of Manager Managing? No August 16, 2024 7:30am Advance Directives No August 16, 2024 7:30am Do you have a Healthcare Power of Manager Managing? No September 20, 2024 1:37pm Advance Directive Response Recorded Date/ Time Do you have a Healthcare Power of Manager Managing? No September 20, 2024 1:37pm Advance Directives No August 16, 2024 7:30am Chief Complaint Chief Complaint Description Start Date [...] Referral Specialty Diagnoses / Procedures Referred By Contac t Referred To Contact General Surgery Diagnoses Screening for colon cancer Procedures CONSULT TO GENERAL SURGERY OFFICE/OUTPATIENT [facility] MDM 60 MINUTES Wily Mcghee APRN.[employer] [address] [place] [address] Referral ID Status Reason Start Date Expiration Date Visits Requested Visits Authorized [id number] Authorized PCP Requested Referral 02/16/2024 02/15/2025 1 1 Specialty Diagnoses / Procedures Referred By Contac t Referred To Contact Urology Diagnoses Blood in semen Procedures CONSULT TO UROLOGY OFFICE/OUTPATIENT [facility] 60-74 MINUTES Wily Mcghee APRN.[employer] [address] [place] [address] Referral ID Status Reason Start Date Expiration Date Visits Requested Visits Authorized [id number] Pending Review PCP Requested Referral 12/27/2022 12/27/2023 1 1 Specialty Diagnoses / Procedures Referred By Contac t Referred To Contact Diagnoses Hypogonadism in male Bharat Coronado MD [address] [place] [address] Referral ID Status Reason Start Date Expiration Date V isits Requested Visits Authorized [id number] Pending Review 1 1 Chief Complaint and Reason for Visit Chief Complaint 8M FU Reason for Visit New onset atrial fib rillation Essential hypertension HLD (hyperlipidemia) H/O coronary artery bypass surgery History of coronary artery stent placement Chief Complaint 8M FU AFIB Reason for Visit New onset atrial fib rillation Essential hypertension HLD (hyperlipidemia) H/O coronary artery bypass surgery History of coronary artery stent placement Chief Complaint 8M FU AFIB AFIB WITH RVR AFIB WITH RVR AFIB WITH RVR AFIB WITH RVR AFIB WITH RVR AFIB WITH RVR AFIB WITH RVR AFIB WITH RVR AFIB WITH RVR AFIB WITH RVR Reason for Visit New onset atrial fib rillation Essential hypertension HLD (hyperlipidemia) H/O coronary artery bypass surgery History of coronary artery stent placement Acute on chronic heart failure with preserved ejection fraction (HFpEF) Atrial fibrillation with rapid ventricular response CHF (congestive heart failure) Dyspnea New onset atrial fibrillation 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 Essential hypertension HLD (hyperlipidemia) H/O coronary artery bypass surgery History of coronary artery stent placement Chief Complaint 8M FU AFIB AFIB WITH RVR Reason for Visit New onset atrial fib rillation Essential hypertension HLD (hyperlipidemia) H/O coronary artery bypass surgery History of coronary artery stent placement Acute on chronic heart failure with preserved ejection fraction (HFpEF) New onset atrial fibrillation Chief Complaint AFIB WITH RVR AFIB WITH RVR 3 wk fu AFIB WITH RVR DISCUSS TRIAL - 3 M FU SOB, worried about a-fib LLorson BRADYCARDIA Reason for Visit Acute on chronic hea rt failure with preserved ejection fraction (HFpEF) 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 Essential hypertension HLD (hyperlipidemia) New onset atrial fibrillation Atrial fibrillation with rapid ventricular response Dyspnea H/O coronary artery bypass surgery History of coronary artery stent placement Essential hypertension HLD (hyperlipidemia) New onset atrial fibrillation H/O coronary artery bypass surgery History of coronary artery stent placement Essential hypertension HLD (hyperlipidemia) New onset atrial fibrillation H/O coronary artery bypass surgery History of coronary artery stent placement Bradycardia Essential hypertension HLD (hyperlipidemia) New onset atrial fibrillation H/O coronary artery bypass surgery History of coronary artery stent placement Chief Complaint DISCUSS TRIAL - 3 M FU SOB, worried about a-fib LLorson BRADYCARDIA 2 m fu per MMM BRADYCARDIA PER MMM (EKG) E ORDER Reason for Visit Essential hypertensi on HLD (hyperlipidemia) New onset atrial fibrillation H/O coronary artery bypass surgery History of coronary artery stent placement Bradycardia Essential hypertension HLD (hyperlipidemia) New onset atrial fibrillation H/O coronary artery bypass surgery History of coronary artery stent placement Bradycardia Essential hypertension HLD (hyperlipidemia) New onset atrial fibrillation H/O coronary artery bypass surgery History of coronary artery stent placement PAF (paroxysmal atrial fibrillation) Sick sinus syndrome Tachy-bradley syndrome 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 Essential hypertension HLD (hyperlipidemia) Chief Complaint DISCUSS TRIAL - 3 M FU SOB, worried about a-fib LLorson BRADYCARDIA 2 m fu per MMM BRADYCARDIA PER MMM (EKG) E ORDER TACHYBRADYIA TACHYBRADYIA Reason for Visit Essential hypertensi on HLD (hyperlipidemia) New onset atrial fibrillation H/O coronary artery bypass surgery History of coronary artery stent placement Bradycardia Essential hypertension HLD (hyperlipidemia) New onset atrial fibrillation H/O coronary artery bypass surgery History of coronary artery stent placement Bradycardia Essential hypertension HLD (hyperlipidemia) New onset atrial fibrillation H/O coronary artery bypass surgery History of coronary artery stent placement PAF (paroxysmal atrial fibrillation) Sick sinus syndrome Tachy-bradley syndrome 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 Essential hypertension HLD (hyperlipidemia) Pacemaker Chief Complaint 2 m fu per MMM BRADYCARDIA PER MMM (EKG) E ORDER TACHYBRADYIA TACHYBRADYIA Redness on L neck/armpit post pacer L.L 1 WK CK (PPM IMPLANT 05/10) 6 wk post implant f/u 3 M FU INT LABS Reason for Visit Bradycardia Essential hypertension HLD (hyperlipidemia) New onset atrial fibrillation H/O coronary artery bypass surgery History of coronary artery stent placement PAF (paroxysmal atrial fibrillation) Sick sinus syndrome Tachy-bradley syndrome 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 Essential hypertension HLD (hyperlipidemia) Pacemaker Pacemaker PAF (paroxysmal atrial fibrillation) Sick sinus syndrome Tachy-bradley syndrome Pacemaker PAF (paroxysmal atrial fibrillation) Sick sinus syndrome Tachy-bradley syndrome PAF (paroxysmal atrial fibrillation) Sick sinus syndrome Tachy-bradley syndrome 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 Essential hypertension HLD (hyperlipidemia) Chief Complaint ALERT for VT episode 3 mos remote PPM f/u Reason for Visit Nonsustained paroxys mal ventricular tachycardia Pacemaker PAF (paroxysmal atrial fibrillation) Sick sinus syndrome Tachy-bradley syndrome Bradycardia Nonsustained paroxysmal ventricular tachycardia Pacemaker PAF (paroxysmal atrial fibrillation) Sick sinus syndrome Tachy-bradley syndrome Chief Complaint Pacer Check Remote Pacer Check Remote Pacer Check Remote Pacer Check Remote E-ORDER Chief Complaint Pacer Check Remote Pacer Check Remote Pacer Check Remote E-ORDER F/U PER MMM BLOOD CLOTS EDEMA, SOB Reason for Visit Atrial fibrillation PAF (paroxysmal atrial fibrillation) 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 Dyspnea on exertion Essential hypertension HLD (hyperlipidemia) Chief Complaint Pacer Check Remote Pacer Check Remote E-ORDER F/U PER MMM BLOOD CLOTS Pacer Check Remote EDEMA, SOB Pacer Check Remote Pacer Check Remote HF EXACERBATION, PAF RVR HF EXACERBATION, PAF RVR HF EXACERBATION, PAF RVR HF EXACERBATION, PAF RVR HF EXACERBATION, PAF RVR HF EXACERBATION, PAF RVR Reason for Visit Atrial fibrillation PAF (paroxysmal atrial fibrillation) 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 Dyspnea on exertion Essential hypertension HLD (hyperlipidemia) Acute on chronic heart failure with preserved ejection fraction (HFpEF) Atrial fibrillation with RVR ALICIA treated with BiPAP Pacemaker Sick sinus syndrome 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 Essential hypertension HLD (hyperlipidemia) Chief Complaint Pacer Check Remote E-ORDER F/U PER MMM BLOOD CLOTS Pacer Check Remote EDEMA, SOB Pacer Check Remote Pacer Check Remote HF EXACERBATION, PAF RVR HF EXACERBATION, PAF RVR HF EXACERBATION, PAF RVR HF EXACERBATION, PAF RVR HF EXACERBATION, PAF RVR HF EXACERBATION, PAF RVR Reason for Visit Atrial fibrillation PAF (paroxysmal atrial fibrillation) 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 Dyspnea on exertion Essential hypertension HLD (hyperlipidemia) ALICIA treated with BiPAP Pacemaker Sick sinus syndrome 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 Essential hypertension HLD (hyperlipidemia) Acute on chronic heart failure with preserved ejection fraction (HFpEF) Atrial fibrillation with RVR Chief Complaint Pacer Check Remote E-ORDER F/U PER MMM BLOOD CLOTS Pacer Check Remote EDEMA, SOB Pacer Check Remote Pacer Check Remote HF EXACERBATION, PAF RVR HF EXACERBATION, PAF RVR HF EXACERBATION, PAF RVR HF EXACERBATION, PAF RVR HF EXACERBATION, PAF RVR HF EXACERBATION, PAF RVR S/P [facility] 08/01 CHF Reason for Visit Atrial fibrillation PAF (paroxysmal atrial fibrillation) 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 Dyspnea on exertion Essential hypertension HLD (hyperlipidemia) ALICIA treated with BiPAP Pacemaker Sick sinus syndrome 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 Essential hypertension HLD (hyperlipidemia) Acute on chronic heart failure with preserved ejection fraction (HFpEF) Atrial fibrillation with RVR Pacemaker PAF (paroxysmal atrial fibrillation) 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 Dyspnea on exertion Essential hypertension HLD (hyperlipidemia) Chief Complaint Admit Date Pacer Check Remote March 29, 2024 2:00am dyspnea March 30, 2024 9:23am Pacer Check Remote April 16, 2024 2: 00am Pacer Check Remote May 10, 2024 2 :00am 3 M FU May 10, 2024 1 0:23am sob May 10, 2024 1 1:12am STAT BILAT LOWER EXT June 01, 2024 2:54pm PER JR: CHF per Dr. Hughes see NN Fe bruary 2024 3:57pm CAD HX, REDUCED EF July 01, 2024 6:4 3am CAD HX, REDUCED EF July 01, 2024 2:2 0pm palpitations July 04, 2024 11: 27am Reason for Visit Admit Date Atrial fibrillation with rapid ventricul ar response May 10, 2024 10:23am Pacemaker May 10, 2024 1 0:23am 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 pectoris May 10, 2024 10:23am Essential hypertension May 10 10:23am HLD (hyperlipidemia) May 10, 2024 10:23am ALICIA treated with BiPAP June 02 3:57pm Essential hypertension June 02 3:57pm H/O coronary artery bypass surgery Febru claude 2024 3:57pm History of coronary artery stent placeme nt June 02, 2024 3:57pm HLD (hyperlipidemia) June 02, 2024 3:57pm PAF (paroxysmal atrial fibrillation) Fe ruary 2024 3:57pm S/P cardiac pacemaker procedure June 02, 2024 3:57pm Chief Complaint Admit Date Pacer Check Remote March 29, 2024 2:00am dyspnea March 30, 2024 9:23am Pacer Check Remote April 16, 2024 2: 00am Pacer Check Remote May 10, 2024 2 :00am 3 M FU May 10, 2024 1 0:23am sob May 10, 2024 1 1:12am STAT BILAT LOWER EXT June 01, 2024 2:54pm PER JR: CHF per Dr. Hughes see NN bruary 2024 3:57pm CAD HX, REDUCED EF July 01, 2024 6:4 3am CAD HX, REDUCED EF July 01, 2024 2:2 0pm palpitations July 04, 2024 11: 27am sob July 15, 2024 8:35 am Chief Complaint Admit Date STAT BILAT LOWER EXT June 01, 2024 2:54pm PER JR: CHF per Dr. Hughes see NN bruary 2024 3:57pm CAD HX, REDUCED EF July 01, 2024 6:4 3am CAD HX, REDUCED EF July 01, 2024 2:2 0pm palpitations July 04, 2024 11: 27am Pacer Check Remote July 09, 2024 2:0 0am sob July 15, 2024 8:35 am 6 M FU July 20, 2024 10:4 9am ALICIA July 21, 2024 7:55 am ABN STRESS August 16, 2024 6:59am CHEST PAIN September 20, 2024 1:13p m Reason for Visit Admit Date Essential hypertension June 02 3:57pm H/O coronary artery bypass surgery Febru claude 2024 3:57pm History of coronary artery stent placeme nt June 02, 2024 3:57pm HLD (hyperlipidemia) June 02, 2024 3:57pm PAF (paroxysmal atrial fibrillation) Feb ruary 2024 3:57pm S/P cardiac pacemaker procedure June 02, 2024 3:57pm ALICIA treated with BiPAP June 02 3:57pm Essential hypertension July 20, 2024 1 0:49am H/O coronary artery bypass surgery July 20, 2024 10:49am History of coronary artery stent placeme nt July 20, 2024 10:49am HLD (hyperlipidemia) July 20, 2024 10: 49am PAF (paroxysmal atrial fibrillation) Apr 2024 10:49am S/P cardiac pacemaker procedure July 10:49am ALICIA treated with BiPAP July 20, 2024 1 0:49am Atrial fibrillation July 21, 2024 7:55 am Obesity July 21, 2024 7:55 am ALICIA (obstructive sleep apnea) July 21, 2024 7:55am Chief Complaint Admit Date CAD HX, REDUCED EF July 01, 2024 6:4 3am CAD HX, REDUCED EF July 01, 2024 2:2 0pm palpitations July 04, 2024 11: 27am Pacer Check Remote July 09, 2024 2:0 0am sob July 15, 2024 8:35 am 6 M FU July 20, 2024 10:4 9am ALICIA July 21, 2024 7:55 am ABN STRESS August 16, 2024 6:59am CHEST PAIN September 20, 2024 1:13p m Pacer Check Remote October 07, 2024 2:26 am Reason for Visit Admit Date Essential hypertension July 20, 2024 1 0:49am H/O coronary artery bypass surgery July 20, 2024 10:49am History of coronary artery stent placeme nt July 20, 2024 10:49am HLD (hyperlipidemia) July 20, 2024 10: 49am PAF (paroxysmal atrial fibrillation) Apr 2024 10:49am S/P cardiac pacemaker procedure July 10:49am ALICIA treated with BiPAP July 20, 2024 1 0:49am Atrial fibrillation July 21, 2024 7:55 am Obesity July 21, 2024 7:55 am ALICIA (obstructive sleep apnea) July 21, 2024 7:55am Chief Complaint Admit Date CAD HX, REDUCED EF July 01, 2024 6:4 3am CAD HX, REDUCED EF July 01, 2024 2:2 0pm palpitations July 04, 2024 11: 27am Pacer Check Remote July 09, 2024 2:0 0am sob July 15, 2024 8:35 am 6 M FU July 20, 2024 10:4 9am ALICIA July 21, 2024 7:55 am ABN STRESS August 16, 2024 6:59am CHEST PAIN September 20, 2024 1:13p m Pacer Check Remote October 07, 2024 2:26 am Pacer Check Remote October 20, 2024 2:00a m Chief Complaint Admit Date ABN STRESS August 16, 2024 6:59am CHEST PAIN September 20, 2024 1:13p m Pacer Check Remote October 07, 2024 2:26 am Pacer Check Remote October 20, 2024 2:00a m 3 M FU November 22, 2024 8: 17am Chief Complaint Admit Date ABN STRESS August 16, 2024 6:59am CHEST PAIN September 20, 2024 1:13p m Pacer Check Remote October 07, 2024 2:26 am Pacer Check Remote October 20, 2024 2:00a m 3 M FU November 22, 2024 8: 17am 4 M FU November 24, 2024 8: 05am Reason for Visit Admit Date Obesity November 22, 2024 8: 17am ALICIA (obstructive sleep apnea) November 8:17am Edema November 24, 2024 8: 05am Essential hypertension November 24, 2024 8:05am H/O coronary artery bypass surgery Augus t 2024 8:05am History of coronary artery stent placeme nt November 24, 2024 8:05am HLD (hyperlipidemia) November 24, 2024 8 :05am PAF (paroxysmal atrial fibrillation) Aug ust 2024 8:05am S/P cardiac pacemaker procedure November 122024 8:05am ALICIA treated with BiPAP November 24, 2024 8:05am Chief Complaint Admit Date CHEST PAIN September 20, 2024 1:13p m Pacer Check Remote October 07, 2024 2:26 am Pacer Check Remote October 20, 2024 2:00a m 3 M FU November 22, 2024 8: 17am 4 M FU November 24, 2024 8: 05am Pacer Check Remote January 07, 2025 2:00am Medications Administered Section Inactive Administered Medications - up to 3 most recent administrations Medication Order MAR Action Action Date Dose Rate Site ciprofloxacin HCl 500 mg tab(s) (CIPRO) 500 mg, ORAL, ONCE, 1 dose, On Fri03/10/23 at 1030, Administer 2 hours before or [...] ized section and content) DATE CREATED AUTHOR 10/07/2017 [facility] DATE CREATED AUTHOR AUTHOR'S ORGANIZ ATION 05/26/2021 [facility] ([place]) DATE CREATED AUTHOR AUTHOR[facility]S [facility]IZ AT[facility] DATE CREATED AUTHOR AUTHOR'S ORGANIZ ATION 10/30/2024 [facility] DATE CREATED AUTHOR AUTHOR'S ORGANIZ ATION 12/15/2024 [facility] DATE CREATED AUTHOR AUTHOR'S ORGANIZ ATION 01/29/2025 [facility] Reason for Visit (unrecogniz ed section and content) Reason For Visit Description New - 1st visit with practice Preliminary reason f or visit data, not yet signed by the author as of mid back pain Reason Onset Date Comments Refill Request 11/02/2021 Reason Comments External Labs Reason Comments Refill Request Reason Comments Wellness Reason Comments Penis/Scrotum Problem Reason Comments Blood In Sperm Specialty Diagnoses / Procedures Referred By Cheng t Referred To Contact FAMILY MEDICINE Diagnoses Blood in semen Procedures OFFICE/OUTPATIENT ESTABLISHED LOW MDM 20-29 MIN Bharat Coronado MD [address] [place] [address] [facility] [address] [place] [address] Referral ID Status Reason Start Date Expiration Date Visits Re quested Visits Authorized [id number] Closed 11/28/2022 04/13/2023 1 1 Reason Comments Results Reason Comments Follow Up For Blood in semen Specialty Diagnoses / Procedures Referred By Cheng jensen Referred To Contact Family Medicine / FAMILY MEDICINE Diagnoses Blood in semen Continued Issues with Blood Semen Procedures OFFICE/OUTPATIENT ESTABLISHED MOD MDM 30-39 MIN 4C EST Bharat Coronado MD [address] [place] [address] Wily Mcghee APRN.[employer] [address] [place] [address] Referral ID Status Reason Start Date Expiration Date Visits Re quested Visits Authorized [id number] Closed 12/27/2022 04/13/2023 1 1 Reason Comments Appointment Reason Comments Cystoscopy-1 Reason Comments Forms [employer] E nrollment Form Reason Onset Date Comments Anesthesia Consult 03/21/2023 Reviewed case with anesthesia Request for cardiac optimization for upcoming elective procedure on 03/24/23ECG done in PAT on 03/18/23 Diagnosis: SINUS TACHYCARDIA WITH PREMATURE ATRIAL COMPLEXES RSR' OR QR PATTERN IN V1 SUGGESTS RIGHT VENTRICULAR CONDUCTION DELAY T WAVE ABNORMALITY, CONSIDER INFERIOR ISCHEMIA ABNORMAL ECG NO PREVIOUS ECGS AVAILABLE Confirmed by MD VANESSA, KULDEEP ([id number]) on 03/19/2023 9:26:50 AM Reason Onset Date Comments Appointment 03/24/2023 Reason Comments Sinus Problem pressure, cough, hea dache x 10 days Reason Comments Results Chest Xray Reason Comments Follow Up EC follow up for cou gh Reason Comments Med Change Request Reason Comments Medication Problem Reason Comments Cough chest congestion, so b dx with pneumonia on 07/06 Reason Comments Follow Up EC follow up Reason Comments CARD New Patient Consult HUSBANDRY PERSON REF FOR A-FI B Reason Onset Date Comments Refill Request 09/17/2023 Reason Comments Patient Question Reason Comments Preparations For Procedures Reason Comments Forms Reason Onset Date Comments Refill Request 01/30/2024 Reason Comments Transition Of Care Reason Comments Follow Up ER [facility] Hospital F/u Musella AFIB Reason Comments CARD Hospital Follow Up HOSPITAL FOLLOW UP Reason Comments Sinus Problem sinus pressure, drai nage, chest congestion x 1 week Reason Comments CARD Follow Up 3 Month Follow up to a-fi b Reason Comments Patient Update Reason Onset Date Comments Refill Request 06/21/2024 Reason Comments Medication Problem Reason Comments Problem with syringe Reason Comments Insurance Authorization Reason Comments Patient Update 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 Procedures OFFICE/OUTPATIENT ESTABLISHED SF MDM 10 MIN OFFICE/OUTPATIENT ESTABLISHED LOW MDM 20 MIN OFFICE/OUTPATIENT ESTABLISHED MOD MDM 30 MIN OFFICE/OUTPATIENT ESTABLISHED HIGH MDM 40 MIN PC EST [facility] [address] [place] [address] Phone: tel: Nandini Flores PA-C [address] [place] [address] Phone: tel: fax: Referral ID Status Reason Start Date Expiration Date V isits Requested Visits Authorized [id number] Authorized 12/09/2024 04/13/2025 99 99 Source Comments (unrecognize d section and content) In the event this informatio n is protected by the Federal Confidentiality of Alcohol and Drug Abuse Patient Records regulations: The Federal rules restrict any use of the information to criminally investigate or prosecute any alcohol or drug abuse patient.[facility] the event this information is protected by the Federal Confidentiality of Alcohol and Drug Abuse Patient Records regulations: The Federal rules restrict any use of the information to criminally investigate or prosecute any alcohol or drug abuse patient.[facility] CenterIn the event this information is protected by the Federal Confidentiality of Alcohol and Drug Abuse Patient Records regulations: The Federal rules restrict any use of the information to criminally investigate or prosecute any alcohol or drug abuse patient.[facility] CenterIn the event this information is protected by the Federal Confidentiality of Alcohol and Drug Abuse Patient Records regulations: The Federal rules restrict any use of the information to criminally investigate or prosecute any alcohol or drug abuse patient.[facility] CenterIn the event this information is protected by the Federal Confidentiality of Alcohol and Drug Abuse Patient Records regulations: The Federal rules restrict any use of the information to criminally investigate or prosecute any alcohol or drug abuse patient.[facility] CenterIn the event this information is protected by the Federal Confidentiality of Alcohol and Drug Abuse Patient Records regulations: The Federal rules restrict any use of the information to criminally investigate or prosecute any alcohol or drug abuse patient.[facility] CenterIn the event this information is protected by the Federal Confidentiality of Alcohol and Drug Abuse Patient Records regulations: The Federal rules restrict any use of the information to criminally investigate or prosecute any alcohol or drug abuse patient.[facility] CenterIn the event this information is protected by the Federal Confidentiality of Alcohol and Drug Abuse Patient Records regulations: The Federal rules restrict any use of the information to criminally investigate or prosecute any alcohol or drug abuse patient.[facility] CenterIn the event this information is protected by the Federal Confidentiality of Alcohol and Drug Abuse Patient Records regulations: The Federal rules restrict any use of the information to criminally investigate or prosecute any alcohol or drug abuse patient.[facility] CenterIn the event this information is protected by the Federal Confidentiality of Alcohol and Drug Abuse Patient Records regulations: The Federal rules restrict any use of the information to criminally investigate or prosecute any alcohol or drug abuse patient.[facility] CenterIn the event this information is protected by the Federal Confidentiality of Alcohol and Drug Abuse Patient Records regulations: The Federal rules restrict any use of the information to criminally investigate or prosecute any alcohol or drug abuse patient.[facility] CenterIn the event this information is protected by the Federal Confidentiality of Alcohol and Drug Abuse Patient Records regulations: The Federal rules restrict any use of the information to criminally investigate or prosecute any alcohol or drug abuse patient.[facility] CenterIn the event this information is protected by the Federal Confidentiality of Alcohol and Drug Abuse Patient Records regulations: The Federal rules restrict any use of the information to criminally investigate or prosecute any alcohol or drug abuse patient.[facility] CenterIn the event this information is protected by the Federal Confidentiality of Alcohol and Drug Abuse Patient Records regulations: The Federal rules restrict any use of the information to criminally investigate or prosecute any alcohol or drug abuse patient.[facility] CenterIn the event this information is protected by the Federal Confidentiality of Alcohol and Drug Abuse Patient Records regulations: The Federal rules restrict any use of the information to criminally investigate or prosecute any alcohol or drug abuse patient.[facility] CenterIn the event this information is protected by the Federal Confidentiality of Alcohol and Drug Abuse Patient Records regulations: The Federal rules restrict any use of the information to criminally investigate or prosecute any alcohol or drug abuse patient.[facility] CenterIn the event this information is protected by the Federal Confidentiality of Alcohol and Drug Abuse Patient Records regulations: The Federal rules restrict any use of the information to criminally investigate or prosecute any alcohol or drug abuse patient.[facility] CenterIn the event this information is protected by the Federal Confidentiality of Alcohol and Drug Abuse Patient Records regulations: The Federal rules restrict any use of the information to criminally investigate or prosecute any alcohol or drug abuse patient.[facility] CenterIn the event this information is protected by the Federal Confidentiality of Alcohol and Drug Abuse Patient Records regulations: The Federal rules restrict any use of the information to criminally investigate or prosecute any alcohol or drug abuse patient.[facility] CenterIn the event this information is protected by the Federal Confidentiality of Alcohol and Drug Abuse Patient Records regulations: The Federal rules restrict any use of the information to criminally investigate or prosecute any alcohol or drug abuse patient.[facility] CenterIn the event this information is protected by the Federal Confidentiality of Alcohol and Drug Abuse Patient Records regulations: The Federal rules restrict any use of the information to criminally investigate or prosecute any alcohol or drug abuse patient.[facility] CenterIn the event this information is protected by the Federal Confidentiality of Alcohol and Drug Abuse Patient Records regulations: The Federal rules restrict any use of the information to criminally investigate or prosecute any alcohol or drug abuse patient.[facility] CenterIn the event this information is protected by the Federal Confidentiality of Alcohol and Drug Abuse Patient Records regulations: The Federal rules restrict any use of the information to criminally investigate or prosecute any alcohol or drug abuse patient.[facility] CenterIn the event this information is protected by the Federal Confidentiality of Alcohol and Drug Abuse Patient Records regulations: The Federal rules restrict any use of the information to criminally investigate or prosecute any alcohol or drug abuse patient.[facility] CenterIn the event this information is protected by the Federal Confidentiality of Alcohol and Drug Abuse Patient Records regulations: The Federal rules restrict any use of the information to criminally investigate or prosecute any alcohol or drug abuse patient.[facility] CenterIn the event this information is protected by the Federal Confidentiality of Alcohol and Drug Abuse Patient Records regulations: The Federal rules restrict any use of the information to criminally investigate or prosecute any alcohol or drug abuse patient.[facility] CenterIn the event this information is protected by the Federal Confidentiality of Alcohol and Drug Abuse Patient Records regulations: The Federal rules restrict any use of the information to criminally investigate or prosecute any alcohol or drug abuse patient.[facility] CenterIn the event this information is protected by the Federal Confidentiality of Alcohol and Drug Abuse Patient Records regulations: The Federal rules restrict any use of the information to criminally investigate or prosecute any alcohol or drug abuse patient.[facility] CenterIn the event this information is protected by the Federal Confidentiality of Alcohol and Drug Abuse Patient Records regulations: The Federal rules restrict any use of the information to criminally investigate or prosecute any alcohol or drug abuse patient.[facility] CenterIn the event this information is protected by the Federal Confidentiality of Alcohol and Drug Abuse Patient Records regulations: The Federal rules restrict any use of the information to criminally investigate or prosecute any alcohol or drug abuse patient.[facility] CenterIn the event this information is protected by the Federal Confidentiality of Alcohol and Drug Abuse Patient Records regulations: The Federal rules restrict any use of the information to criminally investigate or prosecute any alcohol or drug abuse patient.[facility] CenterIn the event this information is protected by the Federal Confidentiality of Alcohol and Drug Abuse Patient Records regulations: The Federal rules restrict any use of the information to criminally investigate or prosecute any alcohol or drug abuse patient.[facility] CenterIn the event this information is protected by the Federal Confidentiality of Alcohol and Drug Abuse Patient Records regulations: The Federal rules restrict any use of the information to criminally investigate or prosecute any alcohol or drug abuse patient.[facility] CenterIn the event this information is protected by the Federal Confidentiality of Alcohol and Drug Abuse Patient Records regulations: The Federal rules restrict any use of the information to criminally investigate or prosecute any alcohol or drug abuse patient.[facility] CenterIn the event this information is protected by the Federal Confidentiality of Alcohol and Drug Abuse Patient Records regulations: The Federal rules restrict any use of the information to criminally investigate or prosecute any alcohol or drug abuse patient.[facility] CenterIn the event this information is protected by the Federal Confidentiality of Alcohol and Drug Abuse Patient Records regulations: The Federal rules restrict any use of the information to criminally investigate or prosecute any alcohol or drug abuse patient.[facility] CenterIn the event this information is protected by the Federal Confidentiality of Alcohol and Drug Abuse Patient Records regulations: The Federal rules restrict any use of the information to criminally investigate or prosecute any alcohol or drug abuse patient.[facility] CenterIn the event this information is protected by the Federal Confidentiality of Alcohol and Drug Abuse Patient Records regulations: The Federal rules restrict any use of the information to criminally investigate or prosecute any alcohol or drug abuse patient.[facility] CenterIn the event this information is protected by the Federal Confidentiality of Alcohol and Drug Abuse Patient Records regulations: The Federal rules restrict any use of the information to criminally investigate or prosecute any alcohol or drug abuse patient.[facility] CenterIn the event this information is protected by the Federal Confidentiality of Alcohol and Drug Abuse Patient Records regulations: The Federal rules restrict any use of the information to criminally investigate or prosecute any alcohol or drug abuse patient.[facility] CenterIn the event this information is protected by the Federal Confidentiality of Alcohol and Drug Abuse Patient Records regulations: The Federal rules restrict any use of the information to criminally investigate or prosecute any alcohol or drug abuse patient.[facility] CenterIn the event this information is protected by the Federal Confidentiality of Alcohol and Drug Abuse Patient Records regulations: The Federal rules restrict any use of the information to criminally investigate or prosecute any alcohol or drug abuse patient.[facility] CenterIn the event this information is protected by the Federal Confidentiality of Alcohol and Drug Abuse Patient Records regulations: The Federal rules restrict any use of the information to criminally investigate or prosecute any alcohol or drug abuse patient.[facility] CenterIn the event this information is protected by the Federal Confidentiality of Alcohol and Drug Abuse Patient Records regulations: The Federal rules restrict any use of the information to criminally investigate or prosecute any alcohol or drug abuse patient.[facility] CenterIn the event this information is protected by the Federal Confidentiality of Alcohol and Drug Abuse Patient Records regulations: The Federal rules restrict any use of the information to criminally investigate or prosecute any alcohol or drug abuse patient.[facility] CenterIn the event this information is protected by the Federal Confidentiality of Alcohol and Drug Abuse Patient Records regulations: The Federal rules restrict any use of the information to criminally investigate or prosecute any alcohol or drug abuse patient.[facility] CenterIn the event this information is protected by the Federal Confidentiality of Alcohol and Drug Abuse Patient Records regulations: The Federal rules restrict any use of the information to criminally investigate or prosecute any alcohol or drug abuse patient.[facility] CenterIn the event this information is protected by the Federal Confidentiality of Alcohol and Drug Abuse Patient Records regulations: The Federal rules restrict any use of the information to criminally investigate or prosecute any alcohol or drug abuse patient.[facility] CenterIn the event this information is protected by the Federal Confidentiality of Alcohol and Drug Abuse Patient Records regulations: The Federal rules restrict any use of the information to criminally investigate or prosecute any alcohol or drug abuse patient.[facility] CenterIn the event this information is protected by the Federal Confidentiality of Alcohol and Drug Abuse Patient Records regulations: The Federal rules restrict any use of the information to criminally investigate or prosecute any alcohol or drug abuse patient.[facility] CenterIn the event this information is protected by the Federal Confidentiality of Alcohol and Drug Abuse Patient Records regulations: The Federal rules restrict any use of the information to criminally investigate or prosecute any alcohol or drug abuse patient.[facility] CenterIn the event this information is protected by the Federal Confidentiality of Alcohol and Drug Abuse Patient Records regulations: The Federal rules restrict any use of the information to criminally investigate or prosecute any alcohol or drug abuse patient.[facility] CenterIn the event this information is protected by the Federal Confidentiality of Alcohol and Drug Abuse Patient Records regulations: The Federal rules restrict any use of the information to criminally investigate or prosecute any alcohol or drug abuse patient.[facility] CenterIn the event this information is protected by the Federal Confidentiality of Alcohol and Drug Abuse Patient Records regulations: The Federal rules restrict any use of the information to criminally investigate or prosecute any alcohol or drug abuse patient.[facility] CenterIn the event this information is protected by the Federal Confidentiality of Alcohol and Drug Abuse Patient Records regulations: The Federal rules restrict any use of the information to criminally investigate or prosecute any alcohol or drug abuse patient.[facility] CenterIn the event this information is protected by the Federal Confidentiality of Alcohol and Drug Abuse Patient Records regulations: The Federal rules restrict any use of the information to criminally investigate or prosecute any alcohol or drug abuse patient.[facility] CenterIn the event this information is protected by the Federal Confidentiality of Alcohol and Drug Abuse Patient Records regulations: The Federal rules restrict any use of the information to criminally investigate or prosecute any alcohol or drug abuse patient.[facility] CenterIn the event this information is protected by the Federal Confidentiality of Alcohol and Drug Abuse Patient Records regulations: The Federal rules restrict any use of the information to criminally investigate or prosecute any alcohol or drug abuse patient.[facility] CenterIn the event this information is protected by the Federal Confidentiality of Alcohol and Drug Abuse Patient Records regulations: The Federal rules restrict any use of the information to criminally investigate or prosecute any alcohol or drug abuse patient.[facility] CenterIn the event this information is protected by the Federal Confidentiality of Alcohol and Drug Abuse Patient Records regulations: The Federal rules restrict any use of the information to criminally investigate or prosecute any alcohol or drug abuse patient.[facility] CenterIn the event this information is protected by the Federal Confidentiality of Alcohol and Drug Abuse Patient Records regulations: The Federal rules restrict any use of the information to criminally investigate or prosecute any alcohol or drug abuse patient.[facility] CenterIn the event this information is protected by the Federal Confidentiality of Alcohol and Drug Abuse Patient Records regulations: The Federal rules restrict any use of the information to criminally investigate or prosecute any alcohol or drug abuse patient.[facility] Care Teams (unrecognized sec tion and content) Container Coordinator Relationship Specialty Start Date End Date Bharat Coronado MD [address] [place] [address] PCP - General Family Practice 02/15/21 Container Coordinator Relationship Specialty Start Date End Date Bharat Coronado MD [address] [place] [address] PCP - General Family Practice 02/15/21 Container Coordinator Relationship Specialty Start Date End Date Bharat Coronado MD [address] [place] [address] PCP - General Family Medicine 02/15/21 Team Status: Active Member Role Status Dates Dr. Radha Mejía MD Family Provider Active Dr. Bharat Coronado MD Primary Care Provider Active Team Status: Inactive Member Role Status Dates Dr. Bharat Coronado MD Primary Care Provider, Referr ing Provider Active Rosaura CARTER PA Attending Provider Active Team Status: Inactive Member Role Status Dates Dr. Bharat Coronado MD Primary Care Provider, Referr ing Provider Active Gregory Coon HUSBANDRY PERSON, HUSBANDRY PERSON-C Attending Provider Active Team Status: Inactive Member Role Status Dates Dr. Bharat Coronado MD Primary Care Provider Active Gregory Coon HUSBANDRY PERSON, HUSBANDRY PERSON-C Attending Provider, Referring Pro vider Active Team Status: Inactive Member Role Status Dates Dr. Bharat Coronado MD Primary Care Provider Active Rosaura CARTER PA Attending Provider Active Team Status: Active Member Role Status Dates Dr. Bharat Coronado MD Primary Care Provider Active Rosaura CARTER PA Attending Provider Active Team Status: Active Member Role Status Dates Dr. Bharat Coronado MD Primary Care Provider Active Dr. Mina Enriquez MD Admit Provider, Att ending Provider, Referring Provider, Other Provider Active Team Status: Inactive Member Role Status Dates Dr. Bharat Coronado MD Primary Care Provider Active Dr. Mina Enriquez MD Admit Provider, Att ending Provider, Referring Provider Active Team Status: Inactive Member Role Status Dates Dr. Bharat Coronado MD Primary Care Provider Active Guillermina Mckinney Active Dr. Mina Enriquez MD Attending Provider, Referring Pro vider Active Team Status: Inactive Member Role Status Dates Dr. Bharat Coronado MD Primary Care Provider, Referr ing Provider Active Dr. Mina Enriquez MD Attending Provider Active Team Status: Inactive Member Role Status Dates Dr. Bharat Coronado MD Primary Care Provider Active Rosaura De La O PA, PA Attending Provider, Referr ing Provider Active Container Coordinator Relationship Specialty Start Date End Date Bharat Coronado MD [address] [place] [address] PCP - General Family Medicine 02/15/21 Container Coordinator Relationship Specialty Start Date End Date Bharat Coronado MD [address] [place] [address] PCP - General Family Medicine 02/15/21 Container Coordinator Relationship Specialty Start Date End Date Bharat Coronado MD [address] [place] [address] PCP - General Family Medicine 02/15/21 Container Coordinator Relationship Specialty Start Date End Date Bharat Coronado MD [address] [place] [address] PCP - General Family Medicine 02/15/21 Container Coordinator Relationship Specialty Start Date End Date Bharat Coronado MD [address] [place] [address] PCP - General Family Medicine 02/15/21 Team Status: Inactive Member Role Status Dates Dr. Bharat Coronado MD Primary Care Provider, Referr ing Provider Active Guillermina Mckinney Attending Provider Active Team Status: Inactive Member Role Status Dates Dr. Bharat Coronado MD Primary Care Provider Active Dr. Michael Marie MD Attending Provider, Referring Pr julianna Active Container Coordinator Relationship Specialty Start Date End Date Bharat Coronado MD [address] [facility] [place] [address] PCP - General Family Medicine 02/15/21 Container Coordinator Relationship Specialty Start Date End Date Bharat Coronado MD [address] [facility] [place] [address] PCP - General Family Medicine 02/15/21 Container Coordinator Relationship Specialty Start Date End Date Bharat Coronado MD [address] [place] [address] PCP - General Family Medicine 02/15/21 Container Coordinator Relationship Specialty Start Date End Date Bharat Coronado MD [address] [facility] [place] [address] PCP - General Family Medicine 02/15/21 Container Coordinator Relationship Specialty Start Date End Date Bharat Coronado MD [address] [facility] [place] [address] PCP - General Family Medicine 02/15/21 Container Coordinator Relationship Specialty Start Date End Date Bharat Coronado MD [address] [facility] [place] [address] PCP - General Family Medicine 02/15/21 Container Coordinator Relationship Specialty Start Date End Date Bharat Coronado MD [address] [facility] [place] [address] PCP - General Family Medicine 02/15/21 Container Coordinator Relationship Specialty Start Date End Date Bharat Coronado MD [address] [place] [address] PCP - General Family Medicine 02/15/21 Container Coordinator Relationship Specialty Start Date End Date Bharat Coronado MD [address] [place], [place] [id number] PCP - General Family Medicine 02/15/21 Team Status: Inactive Member Role Status Dates Dr. Bharat Coronado MD Primary Care Provider Active Dr. Mina Enriquez MD Attending Provider Active Team Status: Inactive Member Role Status Dates Dr. Bharat Coronado MD Primary Care Provider Active Dr. Mina Enriquez MD Attending Provider, Referring Pro vider Active Team Status: Active Member Role Status Dates Dr. Bharat Coronado MD Primary Care Provider Active Dr. Mina Enriquez MD Attending Provider Active Team Status: Active Member Role Status Dates Dr. Bharat Coronado MD Primary Care Provider Active Rosaura De La O PA, PA Attending Provider, Referr ing Provider Active Container Coordinator Relationship Specialty Start Date End Date Bharat Coronado MD [address] [place] [address] PCP - [facility] Family Medicine 02/15/21 Team Status: Active Member Role Status Dates Dr. Bharat Coronado MD Primary Care Provider Active Dr. Mina Enriquez MD Attending Provider Active Rosaura De La O PA, PA Referring Provider Active Team Status: Active Member Role Status Dates Dr. Bharat oCronado MD Primary Care Provider Active Dr. Javier Potts DO Emergency Provider Active Dr. Martha Madrid MD Admit Provider, Other Provider Active Dr. Kuldeep Dong MD Other Provider Active Dr. Areli David MD Attending Provider, Other Provid er Active Team Status: Active Member Role Status Dates Dr. Bharat Coronado MD Primary Care Provider Active Dr. Javier Potts DO Emergency Provider Active Dr. Martha Madrid MD Admit Provider, Other Provider Active Dr. Kuldeep Dong MD Attending Provider, Other Provid er Active Dr. Areli David MD Other Provider Active Team Status: Active Member Role Status Dates Dr. Bharat Coronado MD Primary Care Provider Active Dr. Javier Potts , Emergency Provider Active Dr. Martha Madrid MD Admit Provider, Other Provider Active Dr. Kuldeep Dong MD Other Provider Active Dr. Areli David MD Other Provider Active Dr. Lakisha Beckham MD Attending Provider Active Team Status: Inactive Member Role Status Dates Dr. Bharat Coronado MD Primary Care Provider Active Dr. Javier Potts , Emergency Provider Active Dr. Martha Madrid MD Admit Provider, Other Provider Active Dr. Kuldeep Dong MD Attending Provider Active Dr. Areli David MD Other Provider Active Container Coordinator Relationship Specialty Start Date End Date Bharat Coronado MD [address] [place] [address] PCP - General Family Medicine 02/15/21 Container Coordinator Relationship Specialty Start Date End Date Bharat Coronado MD [address] [place] [address] PCP - General Family Medicine 02/15/21 Container Coordinator Relationship Specialty Start Date End Date Bharat Coronado MD [address] [place] [address] PCP - General Family Medicine 02/15/21 Container Coordinator Relationship Specialty Start Date End Date Bharat Coronado MD [address] [place] [address] PCP - General Family Medicine 02/15/21 Team Status: Active Member Role Status Dates Dr. Bharat Coronado MD Primary Care Provider Active Dr. Javier Potts DO Emergency Provider Active Dr. Martha Madrid MD Admit Provider, Other Provider Active Dr. Kuldeep Dong MD Other Provider Active Dr. Areli David MD Attending Provider , Referring Provider, Other Provider Active Container Coordinator Relationship Specialty Start Date End Date Bharat Coronado MD [address] [facility] [place] [address] PCP - General Family Medicine 02/15/21 Container Coordinator Relationship Specialty Start Date End Date Bharat Coronado MD [address] [place] [address] PCP - General Family Medicine 02/15/21 Team Status: Inactive Member Role Status Dates Dr. Bharat Coronado MD Primary Care Provider, Referr ing Provider Active Wilda Anderson HUSBANDRY PERSON, HUSBANDRY PERSON-C Attending Provider Active Team Status: Inactive Member Role Status Dates Dr. Bharat Coronado MD Primary Care Provider Active Lissette Lord HUSBANDRY PERSON, HUSBANDRY PERSON-C Other Provider Active Dr. Mina Enriquez MD Admit Provider, Att ending Provider, Referring Provider Active Container Coordinator Relationship Specialty Start Date End Date Bharat Coronado MD [address] [facility] [place] [address] PCP - General Family Medicine 02/15/21 Group, [facility] [address] [place] [address] Specialty Clinical Nutritionist Cardiology 09/10/23 Mina Enriquez MD [address] [place] [address] Specialty Clinical Nutritionist Cardiology 09/12/23 Rosaura Arndt PA-C [address] [place] [address] Physician Creping Machine Operator Physician Creping Machine Operator 09/12/23 Container Coordinator Relationship Specialty Start Date End Date Bharat Coronado MD [address] [place] [address] PCP - General Family Medicine 02/15/21 Group, [facility] [address] [place] [address] Specialty Clinical Nutritionist Cardiology 09/10/23 Mina Enriquez MD [address] [place] [address] Specialty Clinical Nutritionist Cardiology 09/12/23 Rosaura Arndt PA-C [address] [place] [address] Physician Creping Machine Operator Physician Creping Machine Operator 09/12/23 Container Coordinator Relationship Specialty Start Date End Date Bharat Coronado MD [address] [place] [address] PCP - General Family Medicine 02/15/21 Group, [facility] [address] [place] [address] Specialty Clinical Nutritionist Cardiology 09/10/23 Mina Enriquez MD [address] [place] [address] Specialty Clinical Nutritionist Cardiology 09/12/23 Rosuara Arndt PA-C [address] [place] [address] Physician Creping Machine Operator Physician Creping Machine Operator 09/12/23 Container Coordinator Relationship Specialty Start Date End Date Bharat Coronado MD [address] [facility] [address] PCP - General Family Medicine 02/15/21 Group, [facility] [address] [place] [address] Specialty Clinical Nutritionist Cardiology 09/10/23 Mina Enriquez MD [address] [place] [address] Specialty Clinical Nutritionist Cardiology 09/12/23 Rosaura Arndt, PA-C [address] [place] [address] Physician Creping Machine Operator Physician Creping Machine Operator 09/12/23 Container Coordinator Relationship Specialty Start Date End Date Bharat Coronado MD [address] [facility] [place] [address] PCP - General Family Medicine 02/15/21 Group, [facility] [address] [place] [address] Specialty Clinical Nutritionist Cardiology 09/10/23 Mina Enriquez MD [address] [place] [address] Specialty Clinical Nutritionist Cardiology 09/12/23 Rosaura Arndt, PA-C [address] [place] [address] Physician Creping Machine Operator Physician Creping Machine Operator 09/12/23 Radha Hughes MD [address] [facility] [address] [place] [address] Specialty Clinical Nutritionist Cardiology 11/12/23 Container Coordinator Relationship Specialty Start Date End Date Bharat Coronado MD [address] [facility] [place] [address] PCP - General Family Medicine 02/15/21 Group, [facility] [address] [facility] [place] [address] Specialty Clinical Nutritionist Cardiology 09/10/23 Mina Enriquez MD [address] [place] [address] Specialty Clinical Nutritionist Cardiology 09/12/23 Rosaura Arndt PA-C [address] [place] [address] Physician Creping Machine Operator Physician Creping Machine Operator 09/12/23 Radha Hughes MD [address] [place] [address] (Fax) Specialty Clinical Nutritionist Cardiology 11/12/23 Container Coordinator Relationship Specialty Start Date End Date Bharat Coronado MD [address] [place] [address] PCP - General Family Medicine 02/15/21 [facility], [facility] [address] [place] [address] Specialty Clinical Nutritionist Cardiology 09/10/23 Mina Enriquez MD [address] [place] [address] Specialty Clinical Nutritionist Cardiology 09/12/23 Rosaura Arndt, JUDAH [address] [place] [address] Physician Creping Machine Operator Physician Creping Machine Operator 09/12/23 Radha Hughes MD [address] [place] [phone] (Fax) Specialty Clinical Nutritionist Cardiology 11/12/23 Container Coordinator Relationship Specialty Start Date End Date Bharat Coronado MD [address] [place] [address] PCP - General Family Medicine 02/15/21 Container Coordinator Relationship Specialty Start Date End Date Bharat Coronado MD [address] [place] [address] PCP - General Family Medicine 02/15/21 Container Coordinator Relationship Specialty Start Date End Date Bharat Coronado MD [address] [place] [address] PCP - General Family Medicine 02/15/21 Group, [facility] [address] [place] [address] Specialty Clinical Nutritionist Cardiology 09/10/23 Mina Enriquez MD [address] [place] [address] Specialty Clinical Nutritionist Cardiology 09/12/23 Rosaura Arndt, PA-C [address] [place] [address] Physician Creping Machine Operator Physician Creping Machine Operator 09/12/23 Radha Hughes MD [address] [facility] [address] [place] [address] Specialty Clinical Nutritionist Cardiology 11/12/23 Vinay Singh MD Building Construction Supervisor 01/28/24 02/10/24 Container Coordinator Relationship Specialty Start Date End Date Bharat Coronado MD [address] [place] [address] PCP - General Family Medicine 02/15/21 Group, [facility] [address] [place] [address] Specialty Clinical Nutritionist Cardiology 09/10/23 Mina Enriquez MD [address] [place] [address] Specialty Clinical Nutritionist Cardiology 09/12/23 Rosaura Arndt PA-Elian [address] [place] [address] Physician Creping Machine Operator Physician Creping Machine Operator 09/12/23 Radha Hughes MD [address] [place] [address] Specialty Clinical Nutritionist Cardiology 11/12/23 Vinay Singh MD Building Construction Supervisor 01/28/24 02/10/24 Container Coordinator Relationship Specialty Start Date End Date Bharat Coronado MD [address] [facility] [place] [address] PCP - General Family Medicine 02/15/21 Group, [facility] [address] [facility] [place] [place] [address] Specialty Clinical Nutritionist Cardiology 09/10/23 Mina Enriquez MD [address] [place] [address] Specialty Clinical Nutritionist Cardiology 09/12/23 Rosaura Arndt PA-C [address] [place] [address] Physician Creping Machine Operator Physician Creping Machine Operator 09/12/23 Radha Hughes MD [address] [place] [address] Specialty Clinical Nutritionist Cardiology 11/12/23 ProviderVinay MD Building Construction Supervisor 01/28/24 02/10/24 Container Coordinator Relationship Specialty Start Date End Date Bharat Coronado MD [address] [place] [address] PCP - General Family Medicine 02/15/21 Group, [facility] [address] [facility] [place] [place] [address] Specialty Clinical Nutritionist Cardiology 09/10/23 Mina Enriquez MD [address] [place] [address] Specialty Clinical Nutritionist Cardiology 09/12/23 Rosaura Arndt PA-C [address] [place] [address] Physician Creping Machine Operator Physician Creping Machine Operator 09/12/23 Radha Hughes MD [address] [place] [address] (Fax) Specialty Clinical Nutritionist Cardiology 11/12/23 Container Coordinator Relationship Specialty Start Date End Date Bharat Coronado MD [address] [place] [address] PCP - General Family Medicine 02/15/21 Group, [facility] [address] [place] [address] Specialty Clinical Nutritionist Cardiology 09/10/23 Mina Enriquez MD [address] [place] [address] Specialty Clinical Nutritionist Cardiology 09/12/23 Rosaura Arndt PA-C [address] [place] [address] Physician Creping Machine Operator Physician Creping Machine Operator 09/12/23 Radha Hughes MD [address] [place] [address] (Fax) Specialty Clinical Nutritionist Cardiology 11/12/23 Container Coordinator Relationship Specialty Start Date End Date Bharat Coronado MD [address] [place] [address] PCP - General Family Medicine 02/15/21 Group, [facility] [address] [place] [address] Specialty Clinical Nutritionist Cardiology 09/10/23 Mina Enriquez MD [address] [place] [address] Specialty Clinical Nutritionist Cardiology 09/12/23 Rosaura Arndt PA-C [address] [place] [address] Physician Creping Machine Operator Physician Creping Machine Operator 09/12/23 Radha Hughes MD [address] [place] [address] (Fax) Specialty Clinical Nutritionist Cardiology 11/12/23 Container Coordinator Relationship Specialty Start Date End Date Bharat Coronado MD [address] [place] [address] PCP - General Family Medicine 02/15/21 Group, [facility] [address] [place] [address] Specialty Clinical Nutritionist Cardiology 09/10/23 Mina Enriquez MD [address] [place] [address] Specialty Clinical Nutritionist Cardiology 09/12/23 Rosaura Arndt, JUDAH [address] [place] [address] Physician Creping Machine Operator Physician Creping Machine Operator 09/12/23 Radha Hughes MD [address] [place] [address] (Fax) Specialty Clinical Nutritionist Cardiology 11/12/23 Suly Bah APRN.MERCHANDISE FLOW TEAM LEADER [address] [place] [address] Building Construction Supervisor Family Medicine 03/21/24 Wily Mcghee APRN.MERCHANDISE FLOW TEAM LEADER [address] [place] [address] Building Construction Supervisor Family Medicine 03/30/24 Container Coordinator Relationship Specialty Start Date End Date Bharat Coronado MD [address] [place] [address] PCP - General Family Medicine 02/15/21 Group, [facility] [address] [place] [address] Specialty Clinical Nutritionist Cardiology 09/10/23 Mina Enriquez MD [address] [place] [address] Specialty Clinical Nutritionist Cardiology 09/12/23 Rosaura De La O PA-C [address] [place] [address] Physician Creping Machine Operator Physician Creping Machine Operator 09/12/23 Radha Hughes MD [address] [facility] [address] [place] [address] Specialty Clinical Nutritionist Cardiology 11/12/23 Suly Bah APRN.MERCHANDISE FLOW TEAM LEADER [address] [place] [address] Building Construction Supervisor Family Medicine 03/21/24 Wily Mcghee APRN.MERCHANDISE FLOW TEAM LEADER [address] [place] [address] Building Construction Supervisor Family Medicine 03/30/24 Container Coordinator Relationship Specialty Start Date End Date Bharat Coronado MD [address] [place] [address] PCP - General Family Medicine 02/15/21 Group, [facility] [address] [place] [address] Specialty Clinical Nutritionist Cardiology 09/10/23 Mina Enriquez MD [address] [place] [address] Specialty Clinical Nutritionist Cardiology 09/12/23 Rosaura De La O PA-C [address] [place] [address] Physician Creping Machine Operator Physician Creping Machine Operator 09/12/23 Radha Hughes MD [address] [place] [address] Specialty Clinical Nutritionist Cardiology 11/12/23 Suly Bah APRN.MERCHANDISE FLOW TEAM LEADER [address] [place] [address] Building Construction Supervisor Family Medicine 03/21/24 Wily Mcghee APRN.MERCHANDISE FLOW TEAM LEADER [address] [place] [address] [facility] 03/30/24 Container Coordinator Relationship Specialty Start Date End Date Bharat Coronado MD [address] [place] [address] PCP - General Family Medicine 02/15/21 Group, [facility] [address] [place] [address] Specialty Clinical Nutritionist Cardiology 09/10/23 Mina Enriquez MD [address] [address] Specialty Clinical Nutritionist Cardiology 09/12/23 Rosaura De La O PA-C [address] [place] [address] Physician Creping Machine Operator Physician Creping Machine Operator 09/12/23 Radha Hughes MD [address] [place] [address] Specialty Clinical Nutritionist Cardiology 11/12/23 Suly Bah APRN.MERCHANDISE FLOW TEAM LEADER [address] [place] [address] Building Construction Supervisor [facility] 03/21/24 Wily Mcghee APRN.MERCHANDISE FLOW TEAM LEADER [address] [place] [address] [facility] 03/30/24 Container Coordinator Relationship Specialty Start Date End Date Bharat Coronado MD [address] [place] [address] PCP - General Family Medicine 02/15/21 [facility], [facility] [address] [place] [address] Specialty Clinical Nutritionist Cardiology 09/10/23 Mina Enriquez MD [address] [place] [address] Specialty Clinical Nutritionist Cardiology 09/12/23 Rosaura De La O PA-C [address] [place] [address] Physician Creping Machine Operator Physician Creping Machine Operator 09/12/23 Radha Hughes MD [address] [place] [address] Specialty Clinical Nutritionist Cardiology 11/12/23 Suly Bah APRN.MERCHANDISE FLOW TEAM LEADER [address] [place] [address] Building Construction Supervisor [facility] 03/21/24 Wiyl Mcghee APRN.MERCHANDISE FLOW TEAM LEADER [address] [place] [address] Building Construction Supervisor Family Medicine 03/30/24 Container Coordinator Relationship Specialty Start Date End Date Bharat Coronado MD [address] [place] [address] PCP - General Family Medicine 02/15/21 Group, [facility] [address] [place] [address] Specialty Clinical Nutritionist Cardiology 09/10/23 Mina Enriquez MD [address] [place] [address] Specialty Clinical Nutritionist Cardiology 09/12/23 Rosaura De La O PA-C [address] [place] [address] Physician Creping Machine Operator Physician Creping Machine Operator 09/12/23 Radha Hughes MD [address] [facility] [address] [place] [address] Specialty Clinical Nutritionist Cardiology 11/12/23 Suly Bah APRN.MERCHANDISE FLOW TEAM LEADER [address] [place] [address] Building Construction Supervisor Family Medicine 03/21/24 Wily Mcghee, GEORGE.MERCHANDISE FLOW TEAM LEADER [address] [place] [address] Building Construction Supervisor Family Medicine 03/30/24 Container Coordinator Relationship Specialty Start Date End Date Bharat Coronado MD [address] [place] [address] PCP - General Family Medicine 02/15/21 [facility], [facility] [address] [place] [address] Specialty Clinical Nutritionist Cardiology 09/10/23 Mina Enriquez MD [address] [facility] [address] [place] [address] Specialty Clinical Nutritionist Cardiology 09/12/23 Rosaura De La O PA-C [address] [facility] [address] [place] [address] Physician Creping Machine Operator Physician Creping Machine Operator 09/12/23 Radha Hughes MD [address] [facility] [address] [place] [address] Specialty Clinical Nutritionist Cardiology 11/12/23 Suly Bah APRN.MERCHANDISE FLOW TEAM LEADER [address] [place], [place] [address] Building Construction Supervisor Family Medicine 03/21/24 Wily Mcghee APRN.MERCHANDISE FLOW TEAM LEADER [address] [place], [place] [address] Building Construction Supervisor [facility] 03/30/24 Team Status: Active Member Role Status Dates Dr. Bharat Coronado MD Primary Care Provider Active Team Status: Inactive Member Role Status Dates Dr. Bharat Coronado MD Primary Care Provider Active Start: March 29, 2024 End: March 29, 2024 Dr. Mina Enriquez MD Attending Provider Active S tart: March 29, 2024 End: March 29, 2024 Dr. Mina Enriquez MD Referring Provider Active S tart: March 29, 2024 End: March 29, 2024 Team Status: Inactive Member Role Status Dates Dr. Bharat Coronado MD Primary Care Provider Active Start: March 30, 2024 End: March 30, 2024 Dr. Bonifacio Olivia MD Attending Provider Active S tart: March 30, 2024 End: March 30, 2024 Dr. Bonifacio Olivia MD Emergency Provider Active S tart: March 30, 2024 End: March 30, 2024 Team Status: Inactive Member Role Status Dates Dr. Bharat Coronado MD Primary Care Provider Active Start: April 16, 2024 End: April 16, 2024 Dr. Mina Enriquez MD Attending Provider Active S tart: April 16, 2024 End: April 16, 2024 Dr. Mina Enriquez MD Referring Provider Active S tart: April 16, 2024 End: April 16, 2024 Team Status: Inactive Member Role Status Dates Dr. Bharat Coronado MD Primary Care Provider Active Start: May 10, 2024 End: May 10, 2024 Dr. Mina Enriquez MD Attending Provider Active S tart: May 10, 2024 End: May 10, 2024 Dr. Mina Enriquez MD Referring Provider Active S tart: May 10, 2024 End: May 10, 2024 Team Status: Inactive Member Role Status Dates Dr. Bharat Coronado MD Primary Care Provider Active Start: May 10, 2024 End: May 10, 2024 Dr. Bharat Coronado MD Referring Provider Active Start: May 10, 2024 End: May 10, 2024 Rosaura De La O PA, PA Attending Provider Active Start: May 10, 2024 End: May 10, 2024 Team Status: Inactive Member Role Status Dates Dr. Bharat Coronado MD Primary Care Provider Active Start: May 10, 2024 End: May 10, 2024 Dr. Terrance Sanders MD Attending Provider Active Sta rt: May 10, 2024 End: May 10, 2024 Dr. Terrance Sanders MD Emergency Provider Active Sta rt: May 10, 2024 End: May 10, 2024 Team Status: Inactive Member Role Status Dates Dr. Bharat Coronado MD Primary Care Provider Active Start: June 01, 2024 End: June 01, 2024 Gregory Coon HUSBANDRY PERSON, HUSBANDRY PERSON-C Attending Provider Active S tart: June 01, 2024 End: June 01, 2024 Gregory Coon HUSBANDRY PERSON, HUSBANDRY PERSON-C Referring Provider Active S tart: June 01, 2024 End: June 01, 2024 Team Status: Active Member Role Status Dates Dr. Bharat Coronado MD Primary Care Provider Active Start: June 01, 2024 Dr. Nima Andino MD Attending Provider Active S tart: June 01, 2024 Gregory H Roof HUSBANDRY PERSON, HUSBANDRY PERSON-C Referring Provider Active S tart: June 01, 2024 Team Status: Active Member Role Status Dates Dr. Bharat Coronado MD Primary Care Provider Active Start: June 01, 2024 Dr. Areli David MD Attending Provider Active Start: June 01, 2024 Team Status: Inactive Member Role Status Dates Dr. Bharat Coronado MD Primary Care Provider Active Start: June 02, 2024 End: June 02, 2024 Dr. Bharat Coronado MD Referring Provider Active Start: June 02, 2024 End: June 02, 2024 Gregory H Shaggy HUSBANDRY PERSON, HUSBANDRY PERSON-C Attending Provider Active S tart: June 02, 2024 End: June 02, 2024 Team Status: Active Member Role Status Dates Dr. Bharat Coronado MD Primary Care Provider Active Start: July 01, 2024 Gregory H Shaggy HUSBANDRY PERSON, HUSBANDRY PERSON-C Attending Provider Active S tart: July 01, 2024 Gregory H Roof HUSBANDRY PERSON, HUSBANDRY PERSON-C Referring Provider Active S tart: July 01, 2024 Team Status: Active Member Role Status Dates Dr. Bharat Coronado MD Primary Care Provider Active Start: July 01, 2024 Gregory H Roof HUSBANDRY PERSON, HUSBANDRY PERSON-C Referring Provider Active S tart: July 01, 2024 Gregory H Roof HUSBANDRY PERSON, HUSBANDRY PERSON-C Other Provider Active Start : July 01, 2024 Dr. Mina Enriquez MD Attending Provider Active S tart: July 01, 2024 Team Status: Inactive Member Role Status Dates Dr. Bharat Coronado MD Primary Care Provider Active Start: July 04, 2024 End: July 04, 2024 Dr. Terrance Sanders MD Emergency Provider Active Sta rt: July 04, 2024 End: July 04, 2024 Team Status: Inactive Member Role Status Dates Dr. Bharat Coronado MD Primary Care Provider Active Start: July 01, 2024 End: July 01, 2024 Gregory H Shaggy HUSBANDRY PERSON, HUSBANDRY PERSON-C Attending Provider Active S tart: July 01, 2024 End: July 01, 2024 Gregory H Roof HUSBANDRY PERSON, HUSBANDRY PERSON-C Referring Provider Active S tart: July 01, 2024 End: July 01, 2024 Container Coordinator Relationship Specialty Start Date End Date Bharat Coronado MD [address] [place] [address] PCP - General Family Medicine 02/15/21 Group, [facility] [address] [place] [address] Specialty Clinical Nutritionist Cardiology 09/10/23 Mina Enriquez MD [address] [place] [address] Specialty Clinical Nutritionist Cardiology 09/12/23 Rosaura De La O PA-C [address] [place], [place] [address] Physician Creping Machine Operator Physician Creping Machine Operator 09/12/23 Radha Hughes MD [address] [place] [address] Specialty Clinical Nutritionist Cardiology 11/12/23 Suly Bah, GEORGE.MERCHANDISE FLOW TEAM LEADER [address] [place] [address] Building Construction Supervisor [facility] 03/21/24 Wily Mcghee APRN.MERCHANDISE FLOW TEAM LEADER [address] [place] [address] Building Construction Supervisor [facility] 03/30/24 Team Status: Inactive Member Role Status Dates Dr. Bharat Coronado MD Primary Care Provider Active Start: July 04, 2024 End: July 04, 2024 Dr. Terrance Sanders MD Attending Provider Active Sta rt: July 04, 2024 End: July 04, 2024 Dr. Terrance Sanders MD Emergency Provider Active Sta rt: July 04, 2024 End: July 04, 2024 Team Status: Inactive Member Role Status Dates Dr. Bharat Coronado MD Primary Care Provider Active Start: July 15, 2024 End: July 15, 2024 Dr. Santiago Roblero , DO Emergency Provider Active Start : July 15, 2024 End: July 15, 2024 Container Coordinator Relationship Specialty Start Date End Date Bharat Coronado MD [address] [place] [address] PCP - General Family Medicine 02/15/21 Group, [facility] [address] [place] [address] Specialty Clinical Nutritionist Cardiology 09/10/23 Mina Enriquez MD [address] [place] [address] Specialty Clinical Nutritionist Cardiology 09/12/23 Rosaura De La O PA-C [address] [place] [address] Physician Creping Machine Operator Physician Creping Machine Operator 09/12/23 Radha Hughes MD [address] [place] [address] Specialty Clinical Nutritionist Cardiology 11/12/23 Suly Bah, GEORGE.MERCHANDISE FLOW TEAM LEADER [address] [place] [address] Building Construction Supervisor Family Medicine 03/21/24 Wily Mcghee, GEORGE.MERCHANDISE FLOW TEAM LEADER [address] [place] [address] Building Construction Supervisor Family Medicine 03/30/24 Container Coordinator Relationship Specialty Start Date End Date Bharat Coronado MD [address] [place] [address] PCP - General Family Medicine 02/15/21 Group, [facility] [address] [place] [address] Specialty Clinical Nutritionist Cardiology 09/10/23 Mina Enriquez MD [address] [place] [address] Specialty Clinical Nutritionist Cardiology 09/12/23 Rosaura De La O PA-C [address] [place] [address] Physician Creping Machine Operator Physician Creping Machine Operator 09/12/23 Radha Hughes MD [address] [place] [address] Specialty Clinical Nutritionist Cardiology 11/12/23 Suly Bah APRN.MERCHANDISE FLOW TEAM LEADER [address] [place] [address] Building Construction Supervisor Family Medicine 03/21/24 Wily Mcghee APRN.MERCHANDISE FLOW TEAM LEADER [address] [facility] [place] [address] Building Construction Supervisor Family Medicine 03/30/24 Team Status: Inactive Member Role Status Dates Dr. Bharat Coronado MD Primary Care Provider Active Start: July 09, 2024 End: July 09, 2024 Dr. Mina Enriquez MD Attending Provider Active S tart: July 09, 2024 End: July 09, 2024 Team Status: Inactive Member Role Status Dates Dr. Bharat Coronado MD Primary Care Provider Active Start: July 15, 2024 End: July 15, 2024 Dr. Snatiago Roblero DO Attending Provider Active Start : July 15, 2024 End: July 15, 2024 Dr. Santiago Roblero DO Emergency Provider Active Start : July 15, 2024 End: July 15, 2024 Team Status: Inactive Member Role Status Dates Dr. Bharat Coronado MD Primary Care Provider Active Start: July 20, 2024 End: July 20, 2024 Dr. Bharat Coronado MD Referring Provider Active Start: July 20, 2024 End: July 20, 2024 Dr. Mina Enriquez MD Attending Provider Active S tart: July 20, 2024 End: July 20, 2024 Team Status: Inactive Member Role Status Dates Dr. Bharat Coronado MD Primary Care Provider Active Start: July 21, 2024 End: July 21, 2024 Dr. Bharat Coronado MD Referring Provider Active Start: July 21, 2024 End: July 21, 2024 Columba Burkett HUSBANDRY PERSON, HUSBANDRY PERSON-C Attending Provider Active Start: July 21, 2024 End: July 21, 2024 Team Status: Inactive Member Role Status Dates Dr. Bharat Coronado MD Primary Care Provider Active Start: August 16, 2024 End: August 16, 2024 Dr. Mina Enriquez MD Attending Provider Active S tart: August 16, 2024 End: August 16, 2024 Dr. Mina Enriquez MD Referring Provider Active S tart: August 16, 2024 End: August 16, 2024 Team Status: Inactive Member Role Status Dates Dr. Bharat Coronado MD Primary Care Provider Active Start: September 20, 2024 End: September 20, 2024 Dr. Ariel Bernard DO Emergency Provider Activ e Start: September 20, 2024 End: September 20, 2024 Container Coordinator Relationship Specialty Start Date End Date Bharat Coronado MD [address] [place] [address] PCP - General Family Medicine 02/15/21 Group, [facility] [address] [place] [address] Specialty Clinical Nutritionist Cardiology 09/10/23 Mina Enriquez MD [address] [place] [address] Specialty Clinical Nutritionist Cardiology 09/12/23 Rosaura De La O PA-C [address] [place] [address] Physician Creping Machine Operator Physician Creping Machine Operator 09/12/23 Radha Hughes MD [address] [facility] [address] [place] [address] Specialty Clinical Nutritionist Cardiology 11/12/23 Wily Mcghee APRN.MERCHANDISE FLOW TEAM LEADER [address] [place] [address] Building Construction Supervisor Family Medicine 03/30/24 Container Coordinator Relationship Specialty Start Date End Date Bharat Coronado MD [address] [place] [address] PCP - General Family Medicine 02/15/21 Group, [facility] [address] [place] [address] Specialty Clinical Nutritionist Cardiology 09/10/23 Mina Enriquez MD [address] [facility] [address] [place] [address] Specialty Clinical Nutritionist Cardiology 09/12/23 Rosaura De La O PA-C [address] [facility] [place] [address] Physician Creping Machine Operator Physician Creping Machine Operator 09/12/23 Radha Hughes MD [address] [place] [address] Specialty Clinical Nutritionist Cardiology 11/12/23 Wily Mcghee APRN.MERCHANDISE FLOW TEAM LEADER [address] [place] [address] Building Construction Supervisor Family Medicine 03/30/24 Container Coordinator Relationship Specialty Start Date End Date Bharat Coronado MD [address] [place] [address] PCP - General Family Medicine 02/15/21 Group, [facility] [address] [place] [address] Specialty Clinical Nutritionist Cardiology 09/10/23 Mina Enriquez MD [address] [facility] [address] [place], [place] [id number] Specialty Clinical Nutritionist Cardiology 09/12/23 Rosaura De La O PA-C [address] [place], [place] [address] Physician Creping Machine Operator Physician Creping Machine Operator 09/12/23 Rdaha Hughes MD [address] [facility] [address] [place] [address] Specialty Clinical Nutritionist Cardiology 11/12/23 Wily Mcghee APRN.CNP [address] [place], [place] [id number] Building Construction Supervisor Family Medicine 03/30/24 Team Status: Active Member Role/Relationship Status Dates Dr. Bharat Coronado MD Primary Care Provider Active Team Status: Inactive Member Role/Relationship Status Dates Dr. Bharat Coronado MD Primary Care Provider Active Start: July 01, 2024 End: July 01, 2024 Gregory Coon HUSBANDRY PERSON, HUSBANDRY PERSON-C Attending Provider Active S tart: July 01, 2024 End: July 01, 2024 Gregory Coon HUSBANDRY PERSON, HUSBANDRY PERSON-C Referring Provider Active S tart: July 01, 2024 End: July 01, 2024 Team Status: Active Member Role/Relationship Status Dates Dr. Bharat Coronado MD Primary Care Provider Active Start: July 01, 2024 Gregory Coon HUSBANDRY PERSON, HUSBANDRY PERSON-C Referring Provider Active S tart: July 01, 2024 Gregory Coon HUSBANDRY PERSON, HUSBANDRY PERSON-C Other Provider Active Start : July 01, 2024 Dr. Mina Enriquez MD Attending Provider Active S tart: July 01, 2024 Team Status: Inactive Member Role/Relationship Status Dates Dr. Bharat Coronado MD Primary Care Provider Active Start: July 04, 2024 End: July 04, 2024 Dr. Terrance Sanders MD Attending Provider Active Sta rt: July 04, 2024 End: July 04, 2024 Dr. Terrance Sanders MD Emergency Provider Active Sta rt: July 04, 2024 End: July 04, 2024 Team Status: Inactive Member Role/Relationship Status Dates Dr. Bharat Coronado MD Primary Care Provider Active Start: July 09, 2024 End: July 09, 2024 Dr. Mina Enriquez MD Attending Provider Active S tart: July 09, 2024 End: July 09, 2024 Team Status: Inactive Member Role/Relationship Status Dates Dr. Bharat Coronado MD Primary Care Provider Active Start: July 15, 2024 End: July 15, 2024 Dr. Santiago Roblero DO Attending Provider Active Start : July 15, 2024 End: July 15, 2024 Dr. Santiago Roblero DO Emergency Provider Active Start : July 15, 2024 End: July 15, 2024 Team Status: Inactive Member Role/Relationship Status Dates Dr. Bharat Coronado MD Primary Care Provider Active Start: July 20, 2024 End: July 20, 2024 Dr. Bharat Coronado MD Referring Provider Active Start: July 20, 2024 End: July 20, 2024 Dr. Mina Enriquez MD Attending Provider Active S tart: July 20, 2024 End: July 20, 2024 Team Status: Inactive Member Role/Relationship Status Dates Dr. Bharat Coronado MD Primary Care Provider Active Start: July 21, 2024 End: July 21, 2024 Dr. Bharat Coronado MD Referring Provider Active Start: July 21, 2024 End: July 21, 2024 Columba Burkett HUSBANDRY PERSON, HUSBANDRY PERSON-C Attending Provider Active Start: July 21, 2024 End: July 21, 2024 Team Status: Inactive Member Role/Relationship Status Dates Dr. Bharat Coronado MD Primary Care Provider Active Start: August 16, 2024 End: August 16, 2024 Dr. Mina Enriquez MD Attending Provider Active S tart: August 16, 2024 End: August 16, 2024 Dr. Mina Enriquez MD Referring Provider Active S tart: August 16, 2024 End: August 16, 2024 Team Status: Inactive Member Role/Relationship Status Dates Dr. Bharat Coronado MD Primary Care Provider Active Start: September 20, 2024 End: September 20, 2024 Dr. Ariel Bernard DO Attending Provider Activ e Start: September 20, 2024 End: September 20, 2024 Dr. Ariel Bernard DO Emergency Provider Activ e Start: September 20, 2024 End: September 20, 2024 Team Status: Inactive Member Role/Relationship Status Dates Dr. Bharat Coronado MD Primary Care Provider Active Start: October 07, 2024 End: October 07, 2024 Dr. Mina Enriquez MD Attending Provider Active S tart: October 07, 2024 End: October 07, 2024 Container Coordinator Relationship Specialty Start Date End Date Bharat Coronado MD [address] [place] [address] PCP - General Family Medicine 02/15/21 Group, [facility] [address] [place] [address] Specialty Clinical Nutritionist Cardiology 09/10/23 Mina Enriquez MD [address] [facility] [address] [place] [address] Specialty Clinical Nutritionist Cardiology 09/12/23 Rosaura De La O PA-C [address] [facility] [address] Physician Creping Machine Operator Physician Creping Machine Operator 09/12/23 Radha Hughes MD [address] [facility] [address] [place] [address] Specialty Clinical Nutritionist Cardiology 11/12/23 Wily Mcghee APRN.MERCHANDISE [employer]OW TEAM LEADER [address] [place] [address] Building Construction Supervisor Family Medicine 03/30/24 Container Coordinator Relationship Specialty Start Date End Date Bharat Coronado MD [address] [place], [place] [id number] PCP - General Family Medicine 02/15/21 Group, [facility] [address] [place] [address] Specialty Clinical Nutritionist Cardiology 09/10/23 Mina Enriquez MD [address] [place], [place] [address] Specialty Clinical Nutritionist Cardiology 09/12/23 Rosaura De La O PA-C [address] [place] [address] Physician Creping Machine Operator Physician Creping Machine Operator 09/12/23 Radha Hughes MD [address] [place] [id number] Specialty Clinical Nutritionist Cardiology 11/12/23 Wily Mcghee APRN.CNP [address] [place], [place] [id number] Building Construction Supervisor Family Medicine 03/30/24 Team Status: Inactive Member Role/Relationship Status Dates Dr. Bharat Coronado MD Primary Care Provider Active Start: October 20, 2024 End: October 20, 2024 Dr. Mina Enriquez MD Attending Provider Active S tart: October 20, 2024 End: October 20, 2024 Team Status: Inactive Member Role/Relationship Status Dates Dr. Bharat Coronado MD Primary Care Provider Active Start: August 16, 2024 End: August 16, 2024 Dr. Mina Enriquez MD Attending Provider Active S tart: August 16, 2024 End: August 16, 2024 Dr. Mina Enriquez MD Referring Provider Active S tart: August 16, 2024 End: August 16, 2024 Team Status: Inactive Member Role/Relationship Status Dates Dr. Bharat Coronado MD Primary Care Provider Active Start: September 20, 2024 End: September 20, 2024 Dr. Ariel Bernard DO Attending Provider Activ e Start: September 20, 2024 End: September 20, 2024 Dr. Ariel Bernard , Emergency Provider Activ e Start: September 20, 2024 End: September 20, 2024 Team Status: Inactive Member Role/Relationship Status Dates Dr. Bharat Coronado MD Primary Care Provider Active Start: October 07, 2024 End: October 07, 2024 Dr. Mina Enriquez MD Attending Provider Active S tart: October 07, 2024 End: October 07, 2024 Dr. Mina Enriquez MD Referring Provider Active S tart: October 07, 2024 End: October 07, 2024 Team Status: Inactive Member Role/Relationship Status Dates Dr. Bharat Coronado MD Primary Care Provider Active Start: October 20, 2024 End: October 20, 2024 Dr. Mina Enriquez MD Attending Provider Active S tart: October 20, 2024 End: October 20, 2024 Dr. Mina Enriquez MD Referring Provider Active S tart: October 20, 2024 End: October 20, 2024 Team Status: Inactive Member Role/Relationship Status Dates Dr. Bharat Coronado MD Primary Care Provider Active Start: November 22, 2024 End: November 22, 2024 Dr. Bharat Coronado MD Referring Provider Active Start: November 22, 2024 End: November 22, 2024 Columba Burkett HUSBANDRY PERSON, HUSBANDRY PERSON-C Attending Provider Active Start: November 22, 2024 End: November 22, 2024 Team Status: Inactive Member Role/Relationship Status Dates Dr. Bharat Coronado MD Primary Care Provider Active Start: November 24, 2024 End: November 24, 2024 Dr. Bharat Coronado MD Referring Provider Active Start: November 24, 2024 End: November 24, 2024 Rosaura De La O PA, PA Attending Provider Active Start: November 24, 2024 End: November 24, 2024 Container Coordinator Relationship Specialty Start Date End Date Bharat Coronado MD [address] [place] [address] PCP - General Family Medicine 02/15/21 Group, [facility] [address] [place] [address] Specialty Clinical Nutritionist Cardiology 09/10/23 Mina Enriquez MD [address] [place] [address] Specialty Clinical Nutritionist Cardiology 09/12/23 Rosaura De La O PA-C [address] [place] [address] Physician Creping Machine Operator Physician Creping Machine Operator 09/12/23 Radha Hughes MD [address] [place] [address] Specialty Clinical Nutritionist Cardiology 11/12/23 Wily Mcghee APRN.CNP [address] [place] [address] Building Construction Supervisor Family Medicine 03/30/24 Container Coordinator Relationship Specialty Start Date End Date Bharat Coronado MD [address] [place] [address] PCP - General Family Medicine 02/15/21 [facility], [facility] [address] [place] [address] Specialty Clinical Nutritionist Cardiology 09/10/23 Mina Enriquez MD [address] [place] [address] Specialty Clinical Nutritionist Cardiology 09/12/23 Rosaura De La O PA-C [address] [place] [address] Physician Creping Machine Operator Physician Creping Machine Operator 09/12/23 Radha Hughes MD [address] [place] [address] Specialty Clinical Nutritionist Cardiology 11/12/23 Suly Bah APRN.MERCHANDISE FLOW TEAM LEADER [address] [place] [address] Building Construction Supervisor Family [facility] 03/21/24 08/25/24 Wily Mcghee APRN.MERCHANDISE FLOW TEAM LEADER [address] [place] [address] [facility] 03/30/24 Container Coordinator Relationship Specialty Start Date End Date Bharat Coronado MD [address] [place] [address] PCP - General Family Medicine 02/15/21 Group, [facility] [address] [place] [address] Specialty Clinical Nutritionist Cardiology 09/10/23 Mina Enriquez MD [address] [place] [address] Specialty Clinical Nutritionist Cardiology 09/12/23 Rosaura De La O PA-C [address] [place] [address] Physician Creping Machine Operator Physician Creping Machine Operator 09/12/23 Radha Hughes MD [address] [place] [address] Specialty Clinical Nutritionist Cardiology 11/12/23 Wily Mcghee APRN.MERCHANDISE FLOW TEAM LEADER [address] [place] [address] [facility] 03/30/24 Team Status: Active Member Role/Relationship Status Dates Dr. Bharat Coronado MD Primary care physician Active Team Status: Inactive Member Role/Relationship Status Dates Dr. Bharat Coronado MD Primary care physician Active Start: September 20, 2024 End: September 20, 2024 Dr. Ariel Bernard DO Attending physician Active Start: September 20 End: September 20, 2024 Dr. Ariel Bernard DO Emergency Department Physician Active Start: September 20, 2024 End: September 20, 2024 Team Status: Inactive Member Role/Relationship Status Dates Dr. Bharat Coronado MD Primary care physician Active Start: October 07, 2024 End: October 07, 2024 Dr. Mina Enriquez MD Attending physician Active Start: October 07, 2024 End: October 07, 2024 Dr. Mina Enriquez MD Referring Provider Active S tart: October 07, 2024 End: October 07, 2024 Team Status: Inactive Member Role/Relationship Status Dates Dr. Bharat Coronado MD Primary care physician Active Start: October 20, 2024 End: October 20, 2024 Dr. Mina Enriquez MD Attending physician Active Start: October 20, 2024 End: October 20, 2024 Dr. Mina Enriquez MD Referring Provider Active S tart: October 20, 2024 End: October 20, 2024 Team Status: Inactive Member Role/Relationship Status Dates Dr. Bharat Coronado MD Primary care physician Active Start: November 22, 2024 End: November 22, 2024 Dr. Bharat Coronado MD Referring Provider Active Start: November 22, 2024 End: November 22, 2024 Columba Burkett HUSBANDRY PERSON, HUSBANDRY PERSON-C Attending physician Active Start: November 22, 2024 End: November 22, 2024 Team Status: Inactive Member Role/Relationship Status Dates Dr. Bharat Coronado MD Primary care physician Active Start: November 24, 2024 End: November 24, 2024 Dr. Bharat Coronado MD Referring Provider Active Start: November 24, 2024 End: November 24, 2024 Rosaura De La O PA, PA Attending physician Active Start: November 24, 2024 End: November 24, 2024 Team Status: Inactive Member Role/Relationship Status Dates Dr. Bharat Coronado MD Primary care physician Active Start: January 07, 2025 End: January 07, 2025 Dr. Mina Enriquez MD Attending physician Active Start: January 07, 2025 End: January 07, 2025 Goals (unrecognized section and content) Goals may be documented in a n alternate section FOR RECORDS PERTAINING TO PATIENTS WHO ARE [...] BE BASED ON THE PRIMARY CLINICAL RECORDS. [employer] provides no warranty or guarantee of the accuracy or completeness of information in this document.
[2025-01-29 10:17] LABS: Anion Gap 13 (5-15); BUN 26 mg/dL (4-19); BUN/Creat Ratio 19.1 RATIO (10-20); Calcium,Total 9.6 mg/dL (7.6-11.0); Carbon Dioxide 22.7 mmol/L (21.0-32.0); Chloride 100 mmol/L (98-108); Estimated Creatinine Clearance 73.56 ml/min (50-250); Glucose 185 mg/dL (70-99); Potassium 5.4 mmol/L (3.3-5.1); Troponin T High Sensitivity 40 ng/L (<=22)
[2025-01-29] MEDS: 0.9% Normal Saline (1000mL) 1,000 ML 15 ML IV (11:46)
[2025-01-29] MEDS: fentaNYL 100 MCG/2 ML Ampul 50 MCG IV (11:50)
--- NOTE | 2025-01-29 12:07 | EKG12_ITS ---
Test Reason : Blood Pressure : */* mmHG Vent. Rate : 60 BPM Atrial Rate : 60 BPM P-R Int : 234 ms QRS Dur : 100 ms QT Int : 400 ms P-R-T Axes : * 50 -67 degrees QTcB Int : 400 ms Atrial-paced rhythm with prolonged AV conduction ST & T wave abnormality, consider inferior ischemia Abnormal ECG Confirmed by MARIEL ROJAS, JEREMY ([id number]), videotape editor FRANCISCA COATS ([id number]) on 01/31/2025 6:44:09 AM Referred By: Confirmed By: JEREMY FLOYD MD
[2025-01-29 12:12] LABS: Troponin T High Sens 2 HR 33 ng/L (<=22)
== END 2025-01-29 13:14 | disposition home or self-care (01) ==
PROVIDERS: Emergency Provider Emergency Medicine; PCP Family Medicine; Visit Provider Emergency Medicine
DX: I48.0 Paroxysmal atrial fibrillation (principal); I49.5 Sick sinus syndrome; E11.9 Type 2 diabetes mellitus without complications; I10 Essential (primary) hypertension; F41.9 Anxiety disorder, unspecified; E66.9 Obesity, unspecified; E78.5 Hyperlipidemia, unspecified; I25.10 Atherosclerotic heart disease of native coronary artery without angina pectoris; Z95.1 Presence of aortocoronary bypass graft; Z95.0 Presence of cardiac pacemaker; Z79.02 Long term (current) use of antithrombotics/antiplatelets; Z79.01 Long term (current) use of anticoagulants; Z79.84 Long term (current) use of oral hypoglycemic drugs; Z91.199 Patient's noncompliance with other medical treatment and regimen due to unspecified reason; Z79.899 Other long term (current) drug therapy
CPT/HCPCS: 71045; 80048; 84484; 85025; 93005; 96361; 96374; 96375; 99285; A4216; J2405

== ENCOUNTER → 2025-02-02 | Outpatient (CLI) | payer OTHER, SELFPAY ==
[2018-10-26 11:39] VITALS: BMI 38.9
--- NOTE | 2025-02-02 14:06 | MRI_ITS ---
PROCEDURE: SPINE CERVICAL (ROUTINE) 02/02/2025 REASON FOR EXAM: RADICULOPATHY TECHNIQUE: Procedure Code: MRISPC Modality: MR Procedure: SPINE CERVICAL (ROUTINE) Multiplanar and multisequence images were obtained without IV contrast administration. COMPARISON: None. FINDINGS: Vertebrae: Cervical vertebral body heights are preserved. Bone marrow signal is unremarkable. Alignment: Normal. No spondylolisthesis. Spinal Cord: Cervical spinal cord is of normal size and signal intensities. Structures at the foramen magnum are unremarkable. 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 Moderate narrowing at the cervical canal and craniocervical junction. C3-4: Disc osteophyte complex. Status post laminectomies. No significant foraminal or canal stenosis. C4-5: Disc osteophyte complex measures 2 mm. Facet joints arthropathy. Uncovertebral hypertrophy. Mild bilateral foramina stenosis. Status post laminectomies. C5-6: Disc osteophyte complex. Uncovertebral hypertrophy. Facet joint arthropathy. Severe bilateral foramina stenosis. Moderate canal stenosis. C6-7: Disc osteophyte complex measures 3 mm. Mild canal stenosis. No significant foramina stenosis. C7-T1: No foraminal or canal stenosis. MRI/Spine Cervical (Routine) IMPRESSION: Status post laminectomies C5 and C6. Multilevel degenerate changes predominantly for moderate canal stenosis at C2-C 3. Severe bilateral foramina stenosis and moderate canal stenosis at C5-C6. Reading Location: [id number]
[2025-02-02 14:23] VITALS: BP 145/67; PULSE 60; RESP 16; O2SAT 96
[2025-02-02 14:38] VITALS: BP 127/68; PULSE 70; RESP 16; O2SAT 94
[2025-02-02 14:48] VITALS: BP 115/56; PULSE 70; RESP 16; O2SAT 98
[2025-02-02 14:57] VITALS: BP 126/57; PULSE 70; RESP 16; O2SAT 95
[2025-02-02 15:09] VITALS: BP 133/45; PULSE 60; RESP 16; O2SAT 97
== END | disposition home or self-care (01) ==
LOC: MRI 13:59
PROVIDERS: PCP Family Medicine; Referring Provider Anesthesiology Pain Medicine; Visit Provider Anesthesiology Pain Medicine
DX: M54.12 Radiculopathy, cervical region (principal)
CPT/HCPCS: 72141